=== PATIENT | male | born 1940 | race American Indian/Alaskan Native ===

== ENCOUNTER 2016-12-26 08:24 | Day surgery (SDC) | payer OTHER ==
[~2016-12-26 08:24] MED LIST: DIPRIVAN 10 MG/ML IV ONE; XYLOCAINE MPF 2% ONE
[2016-12-26] MEDS ORDERED: WATER FOR IRRIG STERILE ONE (09:52)
[2016-12-26] MEDS ORDERED: WATER FOR IRRIG STERILE IR ONE (09:52)
[2016-12-26] MEDS ORDERED: NACL 0.9% 1000 ML 1,000 ML IV SCH (10:00)
--- NOTE | 2016-12-26 10:07 | Anesthesia Consultation ---
Anesthesia Consult and Med Hx Date of service: 12/26/16 - Airway Anesthetic Teeth Evaluation: Edentulous ROM Head & Neck: Adequate Mental/Hyoid Distance: Adequate Mallampati Class: Class III Intubation Access Assessment: Possibly Difficult - Pre-Operative Health Status ASA Pre-Surgery Classification: ASA3 Proposed Anesthetic Plan: MAC - Pulmonary Hx Smoking: Yes (quit 30 years ago) COPD: Yes - Cardiovascular System Hx Hypertension: Yes Hx Coronary Artery Disease: Yes (MIx2, last 2009. No chest pain) Hx Heart Attack/AMI: Yes (cardiac stents x3, ) - Endocrine Hx Renal Disease: Yes - Hematic Hx Anemia: Yes
--- NOTE | 2016-12-26 10:08 | Anesthesia Day of Surgery ---
Anesthesia Day of Surgery - Day of Surgery Patient Examined: Yes Patient H&P Reviewed: Yes Patient is NPO: Yes Beta Blockers: Yes
--- NOTE | 2016-12-26 10:40 | Short Stay Summary ---
Short Stay Documentation Date of service: 12/26/16 Narrative H&P: The patient presents for surveillance colonoscopy. Last study was 3 years ago at the [facility] where more than 2 adenomas were found. - History Past Medical History: anemia, arthritis, CAD, COPD, ESRD, other (CFH) Past Surgical History: Other (AV fistula left arm) Social history: lives with family, no smoking, no alcohol abuse - Allergies and Medications Current Medications: Allergies atorvastatin calcium [From Lipitor] Allergy (Mild, Verified 12/26/16 10:19) Unknown ACHES ciprofloxacin [From Cipro] Allergy (Mild, Verified 12/26/16 10:19) Bleeding NOSE BLEED ciprofloxacin HCl [From Cipro] Allergy (Mild, Verified 12/26/16 10:19) Bleeding NOSE BLEED simvastatin Allergy (Mild, Verified 12/26/16 10:19) Unknown ACHES Home Medications Medication Instructions Recorded Confirmed Last Taken Type Allopurinol [Zyloprim] 100 mg PO QDAY 06/25/16 12/26/16 12/25/16 History Aspirin [Aspirin TAB] 325 mg PO QDAY 06/25/16 12/26/16 12/25/16 History Capsaicin [Capzasin-Hp] 1 applicatio TP TID 06/25/16 12/26/16 06/24/16 History Cholecalciferol Vit D3 [Vitamin D3] 1,000 unit PO QDAY 06/25/16 12/26/16 History Ferrous Sulfate [Feosol 325 MG tab] 325 mg PO BID 06/25/16 12/26/16 12/25/16 History Fosinopril Sodium 40 mg PO QDAY 06/25/16 12/26/16 12/25/16 History Metoprolol [Lopressor TAB] 75 mg PO BID 06/25/16 12/26/16 12/26/16 History Rosuvastatin Calcium 20 mg PO QDAY 06/25/16 12/26/16 12/25/16 History Terazosin HCl 10 mg PO QHS 06/25/16 12/26/16 12/25/16 History Albuterol Sulfate [Proair 90 mcg IH QID PRN #1 aer.pow.ba 06/27/16 12/26/16 Rx Respiclick] Ferrous Sulfate [Feosol 325 MG tab] 325 mg PO BID #60 tablet 06/27/16 12/26/16 12/25/16 Rx Furosemide [Lasix TAB] 40 mg PO BID #60 tablet 06/27/16 12/26/16 12/25/16 Rx Ipratropium/Albuterol Sulfate 1 ampul IH QIDRT #120 ampul.neb 06/27/16 12/26/16 12/25/16 Rx [Duoneb 0.5 mg-3 mg/3 ml Soln] Levofloxacin [Levaquin TAB] 750 mg PO Q48HR #3 tablet 06/27/16 12/26/16 Unknown Rx NIFEdipine XL [Procardia Xl] 30 mg PO QDAY #30 tablet 06/27/16 12/26/16 Rx Prednisone [predniSONE 5 mg (6-Day 5 mg PO .TAPER #1 tab.ds.pk 06/27/16 Unknown Rx Pack, 21 Tabs)] Tiotropium [Spiriva] 18 mcg IH QDAY #30 cap 06/27/16 12/26/16 12/25/16 Rx hydrALAZINE [Apresoline TAB] 25 mg PO Q8HR #90 tablet 06/27/16 12/26/16 Unknown Rx Darbepoetin Eric in Polysorbat 660 mcg IM Q2W 12/26/16 12/26/16 12/24/16 History Active Medications Sodium Chloride (Nacl 0.9% 1000 Ml) 1,000 mls @ 50 mls/hr IV DIRECT DARNELL Last Admin: 12/26/16 10:02 Dose: 50 mls/hr - Physical exam General appearance: no acute distress, well-nourished Integumentary: no rash, no growths, no abnormal pigmentation HEENT: Atraumatic, PERRLA, EOMI, Mucous membr. moist/pink Lungs: Clear to auscultation, Normal air movement Breasts: deferred Gastrointestinal: normoactive bowel sounds, no tenderness, no distended, no masses, no guarding, no organomegaly Male Genitourinary: deferred Rectal Exam: normal exam-external/orifice, normal rectal tone, no mass Extremities: no ischemia, pulses intact, pulses symmetrical, No edema, Full ROM , abnormal (left wrist AV fistula) Neurological: Normal gait, Normal speech, Strength at 5/5 X4 ext, Normal tone, Sensation intact, Cranial nerves 3-12 NL - Brief post op/procedure progress note Date of procedure: 12/26/16 Findings: see dictated report Estimated blood loss: none Pathology: list (descending colon polyp) Specimen disposition: to lab Condition: stable - Disposition Condition at discharge: Good Disposition: DISCHARGED TO HOME OR SELFCARE - Discharge Diagnoses (1) History of colon polyps Status: Acute Short Stay Discharge Plan Activity: other (no driving for 24 hours, No NSAIDS for 7 days) Weight Bearing Status: Full Weight Bearing Diet: low protein Special Instructions: other
--- NOTE | 2016-12-26 10:43 | Operative Report ---
Operative Report Operative Report: Date of procedure: 12/26/2016 Preprocedure diagnosis: History of colon polyps, multiple adenomas. Post procedure diagnosis: 1 cm polyp in the proximal descending colon. Mild left colon diverticulosis. Procedure: Colonoscopy to the cecum with snare polypectomy with cautery. Endoscopist: Dr. Cordova Anesthesia: Monitored anesthesia care per anesthesia department Estimated blood loss: 0 Medications: Monitored anesthesia care. See separate report by anesthesia for details. After careful discussion of the nature and purpose of the procedure as well as details of the technique risks benefits and alternatives the patient gave consent. Please see recent history and physical from the office. The patient was placed in the left lateral decubitus position and medicated per anesthesia. A rectal exam was performed sphincter tone was normal there were no masses palpable. The [employer] 570 scope was passed transanally and advanced under continuous direct vision without difficulty to the cecum. The colon was well prepared. The cecum was normal. The ascending colon was normal and on forward and retroflexed views. The transverse colon was normal. The descending colon revealed a 1 cm semi-pedunculated polyp in the proximal portion. The polyp was removed with snare electrocautery without difficulty and retrieved by suction. There were a few scattered diverticula throughout the descending colon and sigmoid colon. The rectum was normal on forward and retroflexed views. The procedure was well-tolerated overall and the patient was observed in recovery. Conclusions: 1 cm descending colon polyp. Mild left colon diverticulosis. Plan: The patient will call the office in 10 days to discuss the pathology. Repeat colonoscopy in 5 years. Signed electronically: Amanuel Cordova M.D.
[2016-12-26 11:15] VITALS: BP 190/84
--- NOTE | 2016-12-26 14:06 | Post Anesthesia Evaluation ---
- Post Anesthesia Evaluation Patient Participated: Yes Airway Patent: Yes Stable Respiratory Function: Yes Nausea/Vomiting: No Temp > 96.8F: Yes Pain Manageable: Yes Adequeate Hydration: Yes Anesthesia Complications: No Block Receding Appropriately: Not Applicable Patient on Ventilator: No
== END 2016-12-26 08:25 | disposition home or self-care (01) ==
LOC: GIO 08:24
PROVIDERS: ATTEND Internal Medicine Gastroenterology
DX: D12.4 Benign neoplasm of descending colon (principal); K57.30 Diverticulosis of large intestine without perforation or abscess without bleeding; D64.9 Anemia, unspecified; M19.90 Unspecified osteoarthritis, unspecified site; I25.10 Atherosclerotic heart disease of native coronary artery without angina pectoris; I13.2 Hypertensive heart and chronic kidney disease with heart failure and with stage 5 chronic kidney disease, or end stage renal disease; N18.6 End stage renal disease; I50.9 Heart failure, unspecified; I25.2 Old myocardial infarction; J44.9 Chronic obstructive pulmonary disease, unspecified; Z98.890 Other specified postprocedural states; Z79.899 Other long term (current) drug therapy; Z87.891 Personal history of nicotine dependence; Z95.5 Presence of coronary angioplasty implant and graft
CPT/HCPCS: 45385; 88305; J2704; J7030

== ENCOUNTER 2017-11-20 13:08 | Emergency (ER) | payer SELFPAY ==
[2017-11-20] MEDS ORDERED: NACL 0.9% 500 ML 500 ML IV ONE (14:54)
[2017-11-20 16:44] VITALS: BP 116/68
--- NOTE | 2017-11-20 16:55 | Emergency Department Report ---
ED Syncope HPI - General Chief Complaint: Syncope Stated Complaint: SYNCOPAL EPISODE Time Seen by Provider: 11/20/17 14:48 Source: patient - History of Present Illness Initial Comments: Patient is a 77-year-old male with a history of end-stage renal disease on dialysis who is presenting to the emergency department today after a near syncopal episode. Patient became very dizzy and felt as though things were going black and had to be sat down after his dialysis session. Patient blood pressure was 80 systolic. Patient's states he did take his blood pressure medicines today and this has happened before on occasion. Patient currently has no symptoms. Patient does not feel dizzy there is no headache shortness of breath nausea vomiting he is moving all extremities fine. Timing/Prior Episodes: single episode today, recent history - Related Data Allergies/Adverse Reactions: Allergies atorvastatin calcium [From Lipitor] Allergy (Mild, Verified 11/20/17 13:39) Unknown ACHES ciprofloxacin [From Cipro] Allergy (Mild, Verified 11/20/17 13:39) Bleeding NOSE BLEED ciprofloxacin HCl [From Cipro] Allergy (Mild, Verified 11/20/17 13:39) Bleeding NOSE BLEED simvastatin Allergy (Mild, Verified 11/20/17 13:39) Unknown ACHES Home Medications: Ambulatory Orders Allopurinol [Zyloprim] 100 mg PO QDAY 06/25/16 Aspirin [Aspirin TAB] 325 mg PO QDAY 06/25/16 Capsaicin [Capzasin-Hp] 1 applicatio TP TID 06/25/16 Cholecalciferol Vit D3 [Vitamin D3] 1,000 unit PO QDAY 06/25/16 Ferrous Sulfate [Feosol 325 MG tab] 325 mg PO BID 06/25/16 Fosinopril Sodium 40 mg PO QDAY 06/25/16 Metoprolol [Lopressor TAB] 75 mg PO BID 06/25/16 Rosuvastatin Calcium 20 mg PO QDAY 06/25/16 Terazosin HCl 10 mg PO QHS 06/25/16 Albuterol Sulfate [Proair Respiclick] 90 mcg IH QID PRN #1 aer.pow.ba 06/27/16 Ferrous Sulfate [Feosol 325 MG tab] 325 mg PO BID #60 tablet 06/27/16 Furosemide [Lasix TAB] 40 mg PO BID #60 tablet 06/27/16 Ipratropium/Albuterol Sulfate [DUONEB *Not for PRN Use*] 1 ampul IH QIDRT #120 ampul.neb 06/27/16 Levofloxacin [Levaquin TAB] 750 mg PO Q48HR #3 tablet 06/27/16 NIFEdipine XL [Procardia Xl] 30 mg PO QDAY #30 tablet 06/27/16 Prednisone [predniSONE 5 mg (6-Day Pack, 21 Tabs)] 5 mg PO .TAPER #1 tab.ds.pk 06/27/16 Tiotropium [Spiriva] 18 mcg IH QDAY #30 cap 06/27/16 hydrALAZINE [Apresoline TAB] 25 mg PO Q8HR #90 tablet 06/27/16 Darbepoetin Eric in Polysorbat 660 mcg IM Q2W 12/26/16 ED Review of Systems ROS: Stated complaint: SYNCOPAL EPISODE Other details as noted in HPI Comment: All other systems reviewed and negative ED Past Medical Hx - Past Medical History Previous Medical History?: Yes Hx Hypertension: Yes Hx Heart Attack/AMI: Yes (cardiac stents x3, ) Hx Congestive Heart Failure: Yes Hx Renal Disease: Yes Hx Arthritis: Yes Hx COPD: Yes - Surgical History Past Surgical History?: Yes Hx Coronary Stent: Yes (X3) - Social History Smoking Status: Never Smoker Substance Use Type: Alcohol - Medications Home Medications: Home Medications Medication Instructions Recorded Confirmed Last Taken Type Allopurinol [Zyloprim] 100 mg PO QDAY 06/25/16 12/26/16 12/25/16 History Aspirin [Aspirin TAB] 325 mg PO QDAY 06/25/16 12/26/16 12/25/16 History Capsaicin [Capzasin-Hp] 1 applicatio TP TID 06/25/16 12/26/16 06/24/16 History Cholecalciferol Vit D3 [Vitamin D3] 1,000 unit PO QDAY 06/25/16 12/26/16 History Ferrous Sulfate [Feosol 325 MG tab] 325 mg PO BID 06/25/16 12/26/16 12/25/16 History Fosinopril Sodium 40 mg PO QDAY 06/25/16 12/26/16 12/25/16 History Metoprolol [Lopressor TAB] 75 mg PO BID 06/25/16 12/26/16 12/26/16 History Rosuvastatin Calcium 20 mg PO QDAY 06/25/16 12/26/16 12/25/16 History Terazosin HCl 10 mg PO QHS 06/25/16 12/26/16 12/25/16 History Albuterol Sulfate [Proair 90 mcg IH QID PRN #1 aer.pow.ba 06/27/16 12/26/16 Rx Respiclick] Ferrous Sulfate [Feosol 325 MG tab] 325 mg PO BID #60 tablet 06/27/16 12/26/16 12/25/16 Rx Furosemide [Lasix TAB] 40 mg PO BID #60 tablet 06/27/16 12/26/16 12/25/16 Rx Ipratropium/Albuterol Sulfate 1 ampul IH QIDRT #120 ampul.neb 06/27/16 12/26/16 12/25/16 Rx [DUONEB *Not for PRN Use*] Levofloxacin [Levaquin TAB] 750 mg PO Q48HR #3 tablet 06/27/16 12/26/16 Unknown Rx NIFEdipine XL [Procardia Xl] 30 mg PO QDAY #30 tablet 06/27/16 12/26/16 Rx Prednisone [predniSONE 5 mg (6-Day 5 mg PO .TAPER #1 tab.ds.pk 06/27/16 Unknown Rx Pack, 21 Tabs)] Tiotropium [Spiriva] 18 mcg IH QDAY #30 cap 06/27/16 12/26/16 12/25/16 Rx hydrALAZINE [Apresoline TAB] 25 mg PO Q8HR #90 tablet 06/27/16 12/26/16 Unknown Rx Darbepoetin Eric in Polysorbat 660 mcg IM Q2W 12/26/16 12/26/16 12/24/16 History ED Physical Exam - General Limitations: No Limitations General appearance: alert, in no apparent distress - Head Head exam: Present: atraumatic, normocephalic - Eye Eye exam: Present: normal appearance - ENT ENT exam: Present: mucous membranes moist - Neck Neck exam: Present: normal inspection - Respiratory Respiratory exam: Present: normal lung sounds bilaterally. Absent: respiratory distress - Cardiovascular Cardiovascular Exam: Present: regular rate, normal rhythm. Absent: systolic murmur, diastolic murmur, rubs, gallop - GI/Abdominal GI/Abdominal exam: Present: soft, normal bowel sounds. Absent: distended, tenderness, guarding, rebound - Rectal Rectal exam: Present: deferred - Extremities Exam Extremities exam: Present: normal inspection - Back Exam Back exam: Present: normal inspection - Neurological Exam Neurological exam: Present: alert, oriented X3 - Psychiatric Psychiatric exam: Present: normal affect, normal mood - Skin Skin exam: Present: warm, dry, intact, normal color. Absent: rash ED Course Vital Signs 11/20/17 11/20/17 11/20/17 13:50 15:53 16:00 Temperature 97.5 F L Pulse Rate 69 76 Respiratory 14 18 Rate Blood Pressure 137/80 Blood Pressure 125/75 [Left] O2 Sat by Pulse 99 97 Oximetry 11/20/17 11/20/17 11/20/17 16:29 16:32 16:44 Temperature Pulse Rate 75 86 Respiratory 18 Rate Blood Pressure 127/72 116/68 Blood Pressure [Left] O2 Sat by Pulse 98 94 99 Oximetry ED Medical Decision Making - Medical Decision Making Patient was hydrated with a small amount of IV fluids and will be discharged home. Patient's blood pressure has responded well and he is no longer symptomatic or hypotensive Critical care attestation.: If time is entered above; I have spent that time in minutes in the direct care of this critically ill patient, excluding procedure time. ED Disposition Clinical Impression: Hypotension Qualifiers: Hypotension type: hemodialysis-associated hypotension Qualified Code(s): I95.3 - Hypotension of hemodialysis Disposition: DC-01 TO HOME OR SELFCARE Is pt being admited?: No Does the pt Need Aspirin: No Condition: Stable Referrals: NOHEMI RBOWN MD [Primary Care Provider] - 3-5 Days
== END 2017-11-20 17:10 | disposition home or self-care (01) ==
LOC: ED 13:08
DX: I95.9 Hypotension, unspecified (principal); I25.2 Old myocardial infarction; I11.0 Hypertensive heart disease with heart failure; I50.9 Heart failure, unspecified; M19.90 Unspecified osteoarthritis, unspecified site; Z95.1 Presence of aortocoronary bypass graft; Z79.82 Long term (current) use of aspirin; Z88.1 Allergy status to other antibiotic agents; Z88.8 Allergy status to other drugs, medicaments and biological substances
CPT/HCPCS: 93005; 93010; 99283

== ENCOUNTER 2019-04-10 16:37 | Inpatient (IN) | payer MEDICARE ==
[2019-04-10] MEDS ORDERED: NACL 0.9% 1000 ML 1,000 ML IV ONE (17:23)
--- NOTE | 2019-04-10 17:24 | Emergency Department Report ---
ED General Adult HPI - General Chief complaint: Dizziness Stated complaint: HYPOTENSION Time Seen by Provider: 04/10/19 17:22 Source: patient, EMS Mode of arrival: Stretcher Limitations: No Limitations - History of Present Illness Initial comments: Patient is a 78-year-old male that presents emergency room with complaints of weakness, low blood pressure and dizziness and near syncopal episode. Patient states he had dialysis today and only had a half of a normal dialysis due to blood pressure. Patient then went home after dialysis and continue to monitor his blood pressure and it was fluctuating but staying low.. Patient states he is feeling weak and near syncopal. Patient states he never loss consciousness or passed out. Patient is brought in by EMS. Patient denies chest pain. Patient denies shortness of breath. Patient has fever and chills. -: Sudden Consistency: constant Improves with: rest Worsens with: movement Associated Symptoms: malaise, weakness. denies: confusion, chest pain, cough, diaphoresis, fever/chills, headaches, loss of appetite, nausea/vomiting, rash, seizure, shortness of breath Treatments Prior to Arrival: none - Related Data Home Medications Medication Instructions Recorded Confirmed Last Taken Albuterol Sulfate [Proair 90 mcg IH QID PRN 08/28/18 04/10/19 08/26/18 Respiclick] Aspirin [Aspirin BABY CHEW TAB] 81 mg PO QDAY 08/28/18 04/10/19 08/26/18 Lanthanum Carbonate [Fosrenol] 2,000 mg PO TID 08/28/18 04/10/19 08/26/18 NIFEdipine [Adalat cc] 60 mg PO BID 08/28/18 04/10/19 08/26/18 Rosuvastatin Calcium [Crestor] 5 mg PO DAILY 08/28/18 04/10/19 08/26/18 Sodium Bicarbonate 650 mg PO BID 08/28/18 04/10/19 08/26/18 Terazosin HCl 10 mg PO HS 08/28/18 04/10/19 08/26/18 Tiotropium [Spiriva] 2 puff DAILY 08/28/18 04/10/19 08/26/18 Amiodarone HCl [Amiodarone 100 MG 100 mg PO DAILY 04/10/19 04/10/19 Unknown TAB] Apixaban [Eliquis] 5 mg PO Q12H 04/10/19 04/10/19 Unknown Metoprolol Xl [Metoprolol 50 mg PO DAILY 04/10/19 04/10/19 Unknown SUCCINATE ER TAB] Allergies Allergy/AdvReac Type Severity Reaction Status Date / Time atorvastatin calcium Allergy Mild Unknown Verified 11/20/17 13:39 [From Lipitor] ciprofloxacin [From Cipro] Allergy Mild Bleeding Verified 11/20/17 13:39 ciprofloxacin HCl Allergy Mild Bleeding Verified 11/20/17 13:39 [From Cipro] simvastatin Allergy Mild Unknown Verified 11/20/17 13:39 ED Review of Systems ROS: Stated complaint: HYPOTENSION Other details as noted in HPI Constitutional: denies: chills, fever Eyes: denies: eye pain, eye discharge, vision change ENT: denies: ear pain, throat pain Respiratory: denies: cough, shortness of breath, wheezing Cardiovascular: denies: chest pain, palpitations Endocrine: no symptoms reported Gastrointestinal: denies: abdominal pain, nausea, diarrhea Genitourinary: denies: urgency, dysuria Musculoskeletal: denies: back pain, joint swelling, arthralgia Skin: denies: rash, lesions Neurological: weakness. denies: headache, paresthesias Psychiatric: denies: anxiety, depression Hematological/Lymphatic: denies: easy bleeding, easy bruising ED Past Medical Hx - Past Medical History Previous Medical History?: Yes Hx Hypertension: Yes Hx Heart Attack/AMI: Yes (cardiac stents x3, ) Hx Congestive Heart Failure: Yes Hx Renal Disease: Yes Hx Arthritis: Yes Hx COPD: Yes - Surgical History Past Surgical History?: Yes Hx Coronary Stent: Yes (X3) - Family History Family history: no significant - Social History Smoking Status: Never Smoker Substance Use Type: None - Medications Home Medications: Home Medications Medication Instructions Recorded Confirmed Last Taken Type Albuterol Sulfate [Proair 90 mcg IH QID PRN 08/28/18 04/10/19 08/26/18 History Respiclick] Aspirin [Aspirin BABY CHEW TAB] 81 mg PO QDAY 08/28/18 04/10/19 08/26/18 History Lanthanum Carbonate [Fosrenol] 2,000 mg PO TID 08/28/18 04/10/19 08/26/18 History NIFEdipine [Adalat cc] 60 mg PO BID 08/28/18 04/10/19 08/26/18 History Rosuvastatin Calcium [Crestor] 5 mg PO DAILY 08/28/18 04/10/19 08/26/18 History Sodium Bicarbonate 650 mg PO BID 08/28/18 04/10/19 08/26/18 History Terazosin HCl 10 mg PO HS 08/28/18 04/10/19 08/26/18 History Tiotropium [Spiriva] 2 puff DAILY 08/28/18 04/10/19 08/26/18 History Amiodarone HCl [Amiodarone 100 MG 100 mg PO DAILY 04/10/19 04/10/19 Unknown History TAB] Apixaban [Eliquis] 5 mg PO Q12H 04/10/19 04/10/19 Unknown History Metoprolol Xl [Metoprolol 50 mg PO DAILY 04/10/19 04/10/19 Unknown History SUCCINATE ER TAB] ED Physical Exam - General Limitations: No Limitations General appearance: alert, in no apparent distress - Head Head exam: Present: atraumatic, normocephalic - Eye Eye exam: Present: normal appearance, PERRL Pupils: Present: normal accommodation, other (scleral pallor noted) - ENT ENT exam: Present: mucous membranes moist - Neck Neck exam: Present: normal inspection - Respiratory Respiratory exam: Present: normal lung sounds bilaterally. Absent: respiratory distress, wheezes, rales - Cardiovascular Cardiovascular Exam: Present: regular rate, normal rhythm. Absent: systolic murmur, diastolic murmur, rubs, gallop - GI/Abdominal GI/Abdominal exam: Present: soft, normal bowel sounds - Rectal Rectal exam: Present: deferred - Extremities Exam Extremities exam: Present: normal inspection - Back Exam Back exam: Present: normal inspection - Neurological Exam Neurological exam: Present: alert, oriented X3 - Psychiatric Psychiatric exam: Present: normal affect, normal mood - Skin Skin exam: Present: warm, dry, intact, normal color. Absent: rash ED Course Vital Signs 04/10/19 04/10/19 04/10/19 17:03 17:10 17:15 Temperature 97.8 F Pulse Rate 93 H 91 H Respiratory 18 15 Rate Blood Pressure 87/43 79/42 79/42 O2 Sat by Pulse 98 96 Oximetry 04/10/19 04/10/19 04/10/19 17:30 17:45 18:00 Temperature Pulse Rate 86 86 88 Respiratory 12 16 21 Rate Blood Pressure 79/42 94/48 94/48 O2 Sat by Pulse 97 97 Oximetry 04/10/19 04/10/19 04/10/19 18:16 18:30 18:45 Temperature Pulse Rate 83 83 83 Respiratory 21 15 16 Rate Blood Pressure 79/42 100/40 96/34 O2 Sat by Pulse 99 98 96 Oximetry 04/10/19 04/10/19 04/10/19 19:00 19:15 19:20 Temperature Pulse Rate 84 86 Respiratory 14 14 20 Rate Blood Pressure 95/36 104/40 O2 Sat by Pulse 98 96 97 Oximetry 04/10/19 04/10/19 04/10/19 19:30 19:45 20:01 Temperature Pulse Rate 92 H 86 89 Respiratory 21 19 13 Rate Blood Pressure 99/41 106/50 110/54 O2 Sat by Pulse 97 97 Oximetry 04/10/19 04/10/19 04/10/19 20:07 20:15 20:22 Temperature 97.3 F L 98.2 F Pulse Rate 88 92 H 88 Respiratory 18 16 18 Rate Blood Pressure 101/49 88/45 88/45 O2 Sat by Pulse 98 92 97 Oximetry 04/10/19 04/10/19 04/10/19 20:30 20:45 20:52 Temperature 98.4 F Pulse Rate 91 H 94 H 95 H Respiratory 16 11 L 18 Rate Blood Pressure 105/56 125/53 108/50 O2 Sat by Pulse 95 98 97 Oximetry 04/10/19 04/10/19 04/10/19 21:00 21:15 21:22 Temperature 98.5 F Pulse Rate 88 89 88 Respiratory 14 15 18 Rate Blood Pressure 122/53 131/63 131/63 O2 Sat by Pulse 99 100 98 Oximetry 04/10/19 04/10/19 04/10/19 21:30 21:32 21:46 Temperature 98.3 F Pulse Rate 86 87 94 H Respiratory 20 18 21 Rate Blood Pressure 120/61 103/43 121/52 O2 Sat by Pulse 96 98 Oximetry 04/10/19 04/10/19 22:00 22:09 Temperature 98.3 F Pulse Rate 88 87 Respiratory 14 18 Rate Blood Pressure 103/43 103/43 O2 Sat by Pulse 95 97 Oximetry - Reevaluation(s) Reevaluation #1: Blood pressure has improved. Patient has received 300 mils of saline and blood pressure right now is 100/60. Discussed all results with patient. Patient will be admitted to the hospitalist service. Patient agrees to plan of care. Patient agrees to have transfusion. 04/10/19 19:04 - Consultations Consultation #1: Hospitalist consulted for admission. Hospitalist to admit patient. Hospitalist to assume care patient. 04/10/19 19:10 ED Medical Decision Making - Lab Data Result diagrams: 04/10/19 17:29 04/10/19 17:29 - EKG Data -: EKG Interpreted by Me EKG shows normal: sinus rhythm, axis, intervals, QRS complexes, ST-T waves Rate: normal - Radiology Data Radiology results: image reviewed - Medical Decision Making Patient is a 78-year-old mellitus emergency room with complaints of hypotension, near syncope and weakness. Patient found to have low blood pressure and severe anemia. Patient type and cross and will be transfused 2 units. The patient has a history of CAD and CHF and end-stage renal disease. Labs unremarkable was in for severe anemia and kidney findings consistent with end-stage renal disease. Potassium normal. Patient's chest x-ray unremarkable. Patient admitted to the hospitalist service. - Differential Diagnosis anemia. hypotension. Hydration. Hypovolemia. Critical Care Time: Yes Critical care attestation.: If time is entered above; I have spent that time in minutes in the direct care of this critically ill patient, excluding procedure time. Critical Care Time: 45 minutes ED Disposition Clinical Impression: Elevated troponin, ESRD on hemodialysis, Near syncope Anemia Qualifiers: Anemia type: unspecified type Qualified Code(s): D64.9 - Anemia, unspecified Hypotension Qualifiers: Hypotension type: unspecified hypotension type Qualified Code(s): I95.9 - Hypotension, unspecified CAD (coronary artery disease) Qualifiers: Coronary Disease-Associated Artery/Lesion type: unspecified vessel or lesion type [place] vs. transplanted heart: [place] heart Associated angina: angina presence unspecified Qualified Code(s): I25.10 - Atherosclerotic heart disease of [place] coronary artery without angina pectoris Disposition: OP ADMIT IP TO THIS HOSP Is pt being admited?: Yes Does the pt Need Aspirin: No Condition: Critical Time of Disposition: 18:59
[2019-04-10 17:47] LABS: Basophils # (Auto) 0.1 K/mm3 (0.0-0.1); Basophils % (Auto) 0.7 % (0.0-1.8); Eosinophils # (Auto) 0.1 K/mm3 (0.0-0.4); Eosinophils % (Auto) 1.1 % (0.0-4.3); Lymphocytes # (Auto) 0.7 K/mm3 (1.2-5.4); Lymphocytes % (Auto) 7.8 % (13.4-35.0); Mean Corpuscular HGB Conc 34 % (32-34); Mean Corpuscular Volume 83 fl (84-94); Monocytes # (Auto) 0.6 K/mm3 (0.0-0.8); Monocytes % (Auto) 7.2 % (0.0-7.3); Platelet Count 164 K/mm3 (140-440); Red Cell Distribution Width 18.3 % (13.2-15.2)
[2019-04-10 18:06] LABS: Alanine Aminotransferase 11 units/L (7-56); BUN/Creatinine Ratio 11; Blood Urea Nitrogen 65 mg/dL (9-20); Calcium 8.6 mg/dL (8.4-10.2); Hematocrit 16.6 % (35.5-45.6); Hemoglobin 5.6 gm/dl (11.8-15.2); Hemolysis Index 2
[2019-04-10] MEDS ORDERED: NACL 0.9% 500 ML 500 ML IV ONE (18:57)
[2019-04-10 19:01] LABS: Chol/HDL Ratio 4.65 %; HDL Cholesterol 29 mg/dL (40-59); LDL Cholesterol,Direct 64 mg/dL (50-130)
--- NOTE | 2019-04-10 19:19 | XRay Report ---
PROCEDURE: XR CHEST 1V AP TECHNIQUE: Chest radiograph single view. HISTORY: Lightheadedness/Dizziness COMPARISONS: CXR 08/27/2018 . FINDINGS: Heart: Normal. Mediastinum/Vessels: Calcification of aorta is again noted. Lungs/Pleural space: Chronic markings in the right lung base are stable, probably fibrotic.. Bony thorax: No acute osseous abnormality. Life support devices: None. IMPRESSION: No acute cardiopulmonary abnormality. Probable fibrosis in the right base This document is electronically signed by Celeste Mesa MD., April 10 2019 07:17:42 PM ET
[2019-04-10] MEDS ORDERED: PROVENTIL IH PRN (20:29)
[2019-04-10] MEDS ORDERED: MORPHINE IV PRN (20:29)
[2019-04-10] MEDS ORDERED: SODIUM CHLORIDE FLUSH SYRINGE 10 ML IV PRN (20:29)
[2019-04-10] MEDS: PULMICORT IH SCH (20:30)
[2019-04-10 21:30] LABS: INR 1.38 (0.87-1.13)
[2019-04-10 21:35] LABS: Iron 62 ug/dL (49-181); Total Iron Binding Capacity 176 mcg/dL (250-450)
[2019-04-10 21:36] LABS: % Iron Saturation 37.5 %
[2019-04-10] MEDS ORDERED: COUMADIN PO SCH (22:00)
[2019-04-10] MEDS: SODIUM CHLORIDE FLUSH SYRINGE 10 ML IV SCH (22:10)
--- NOTE | 2019-04-10 22:19 | History and Physical Report ---
History of Present Illness Date of examination: 04/10/19 Date of admission: 04/10/19 20:29 Chief complaint: Hypotension History of present illness: 78-year-old -[place] male with history of COPD, coronary artery disease status post stent 3, HLD, ESRD on HD M/W/F, HTN who presents to [facility] ED via EMS with complaints of hypotension and generalized weakness. Patient states that he was not able to complete full course of hemo dialysis today d/t hypotension. After dialysis he went home and took "some medicine" and went back out to run a few errands. While out running errands he became dizzy and had a near syncopal event. Patient states that he never lost consciousness. EMS was called and he was transported to facility for further evaluation. Of note patient states that he was recently in [place] vacationing and became afebrile. He was treated for pneumonia bacteremia and COPD exacerbation. He was discharged with oral antibiotics. He states that he has completed full course of antibiotics. Denies loss of consciousness, chest pain, fever, cough, sputum production, hemoptysis, dyspnea, or headache Past History Past Medical History: acute [place] (cardiac stents x3), arthritis, CAD, COPD, heart failure, hypertension, renal failure (on HD M/W/F) Past Surgical History: Other (s/p stents x3) Social history: other (former smoker quit 30 years ago) Family history: no significant family history Medications and Allergies Allergies Allergy/AdvReac Type Severity Reaction Status Date / Time atorvastatin calcium Allergy Mild Unknown Verified 11/20/17 13:39 [From Lipitor] ciprofloxacin [From Cipro] Allergy Mild Bleeding Verified 11/20/17 13:39 ciprofloxacin HCl Allergy Mild Bleeding Verified 11/20/17 13:39 [From Cipro] simvastatin Allergy Mild Unknown Verified 11/20/17 13:39 Home Medications Medication Instructions Recorded Confirmed Last Taken Type Albuterol Sulfate [Proair 90 mcg IH QID PRN 08/28/18 04/10/19 08/26/18 History Respiclick] Aspirin [Aspirin BABY CHEW TAB] 81 mg PO QDAY 08/28/18 04/10/19 08/26/18 History Lanthanum Carbonate [Fosrenol] 2,000 mg PO TID 08/28/18 04/10/19 08/26/18 History NIFEdipine [Adalat cc] 60 mg PO BID 08/28/18 04/10/19 08/26/18 History Rosuvastatin Calcium [Crestor] 5 mg PO DAILY 08/28/18 04/10/19 08/26/18 History Sodium Bicarbonate 650 mg PO BID 08/28/18 04/10/19 08/26/18 History Terazosin HCl 10 mg PO HS 08/28/18 04/10/19 08/26/18 History Tiotropium [Spiriva] 2 puff DAILY 08/28/18 04/10/19 08/26/18 History Amiodarone HCl [Amiodarone 100 MG 100 mg PO DAILY 04/10/19 04/10/19 Unknown History TAB] Apixaban [Eliquis] 5 mg PO Q12H 04/10/19 04/10/19 Unknown History Metoprolol Xl [Metoprolol 50 mg PO DAILY 04/10/19 04/10/19 Unknown History SUCCINATE ER TAB] Active Meds: Active Medications Acetaminophen (Tylenol) 650 mg PO Q4H PRN PRN Reason: Pain MILD(1-3)/Fever >100.5/STOLL Albuterol (Proventil) 2.5 mg IH Q3HRT PRN PRN Reason: Shortness Of Breath Allopurinol (Zyloprim) 100 mg PO QDAY DARNELL Aspirin (Baby Aspirin) 81 mg PO QDAY DARNELL Budesonide (Pulmicort) 0.5 mg IH Q12HRT [facility] Docusate Sodium (Colace) 100 mg PO BID [facility] Ferrous Sulfate (Feosol) 325 mg PO TID [facility] Heparin Sodium (Porcine) (Heparin) 5,000 unit SUB-Q Q12HR [facility] Miscellaneous Medication (Rosuvastatin Calcium [Crestor]) 5 mg PO DAILY [facility] Miscellaneous Medication (Lanthanum Carbonate [Fosrenol]) 2,000 mg PO TID [facility] Morphine Sulfate (Morphine) 2 mg IV Q4H PRN PRN Reason: Pain, Moderate (4-6) Stop: 04/11/19 23:59 Ondansetron HCl (Zofran) 4 mg IV Q8H PRN PRN Reason: Nausea And Vomiting Sodium Chloride (Sodium Chloride Flush Syringe 10 Ml) 10 ml IV BID [facility] Sodium Chloride (Sodium Chloride Flush Syringe 10 Ml) 10 ml IV PRN PRN PRN Reason: LINE FLUSH Warfarin Sodium (Coumadin) 5 mg PO QHS DARNELL; Protocol Review of Systems All systems: negative (reviewed and no additional remarkable complaints except as below) Constitutional: fatigue, weakness Exam - Physical Exam Narrative exam: Physical exam General appearance: Present: No acute distress, alert and oriented 3, older adult male - EENT Eyes: Present: PERRL, EOM intact ENT: hearing intact, normal dentition - Neck Neck: Present: supple, normal ROM - Respiratory Respiratory effort: Non-labored Respiratory: bilateral: diminished (bases) - Cardiovascular Heart rate: 82 (bpm) Rhythm: Sinus rhythm Heart Sounds: Present: S1 & S2. Absent: rub, click - Extremities Extremities: no ischemia, pulses intact, abnormal (left upper arm fistula) - Peripheral Assessment Peripheral Pulses: within normal limits - Abdominal General gastrointestinal: soft, non-tender, normal bowel sounds - Integumentary Integumentary: Present: warm, dry - Musculoskeletal Musculoskeletal: generalized weakness - Psychiatric Psychiatric: cooperative - Constitutional Vitals: Temp Pulse Resp BP Pulse Ox 98.3 F 87 18 103/43 98 04/10/19 21:32 04/10/19 21:32 04/10/19 21:32 04/10/19 21:32 04/10/19 21:32 Results - Labs CBC & Chem 7: 04/10/19 17:29 04/10/19 17:29 Labs: Laboratory Last Values WBC 8.5 K/mm3 (4.5-11.0) 04/10/19 17:29 RBC 2.00 M/mm3 (3.65-5.03) L 04/10/19 17:29 Hgb 5.6 gm/dl (11.8-15.2) L* 04/10/19 17:29 Hct 16.6 % (35.5-45.6) L* 04/10/19 17:29 MCV 83 fl (84-94) L 04/10/19 17:29 MCH 28 pg (28-32) 04/10/19 17:29 MCHC 34 % (32-34) 04/10/19 17:29 RDW 18.3 % (13.2-15.2) H 04/10/19 17:29 Plt Count 164 K/mm3 (140-440) 04/10/19 17:29 Lymph % (Auto) 7.8 % (13.4-35.0) L 04/10/19 17:29 [place] % (Auto) 7.2 % (0.0-7.3) 04/10/19 17:29 Eos % (Auto) 1.1 % (0.0-4.3) 04/10/19 17:29 Baso % (Auto) 0.7 % (0.0-1.8) 04/10/19 17:29 Lymph # 0.7 K/mm3 (1.2-5.4) L 04/10/19 17: [place] # 0.6 K/mm3 (0.0-0.8) 04/10/19 17:29 Eos # 0.1 K/mm3 (0.0-0.4) 04/10/19 17: Baso # 0.1 K/mm3 (0.0-0.1) 04/10/19 17: Seg Neutrophils % 83.2 % (40.0-70.0) H 04/10/19 17: Seg Neutrophils # 7.1 K/mm3 (1.8-7.7) 04/10/19 17:29 PT 17.9 Sec. (12.2-14.9) H 04/10/19 21:02 INR 1.38 (0.87-1.13) H 04/10/19 21:02 Sodium 137 mmol/L (137-145) 04/10/19 17:29 Potassium 4.5 mmol/L (3.6-5.0) 04/10/19 17: Chloride 100.4 mmol/L (98-107) 04/10/19 17:29 Carbon Dioxide 24 mmol/L (22-30) 04/10/19 17:29 17 mmol/L 04/10/19 17:29 BUN 65 mg/dL (9-20) H 04/10/19 17:29 5.9 mg/dL (0.8-1.5) H 04/10/19 17:29 Estimated GFR 11 ml/min 04/10/19 17:29 11 % 04/10/19 17:29 Glucose 111 mg/dL (75-100) H 04/10/19 17:29 Lactic Acid 1.50 mmol/L (0.7-2.0) 04/10/19 17: Calcium 8.6 mg/dL (8.4-10.2) 04/10/19 17:29 Iron 62 ug/dL (49-181) 04/10/19 20:43 Iron 63 ug/dL (49-181) 04/10/19 20:43 TIBC 168 mcg/dL (250-450) L 04/10/19 20:43 TIBC 176 mcg/dL (250-450) L 04/10/19 20:43 % Saturation 37.50 % 04/10/19 20:43 154 mg/dl (180-329) L 04/10/19 20:43 < 0.20 mg/dL (0.1-1.2) 04/10/19 17:29 AST 11 units/L (5-40) 04/10/19 17:29 ALT 11 units/L (7-56) 04/10/19 17:29 33 units/L (35-129) L 04/10/19 17:29 0.068 ng/mL (0.00-0.029) H 04/10/19 17:29 5.6 g/dL (6.3-8.2) L 04/10/19 17:29 3.0 g/dL (3.9-5) L 04/10/19 17:29 1.2 % 04/10/19 17:29 Triglycerides 307 mg/dL (2-149) H 04/10/19 17:29 Cholesterol 135 mg/dL (50-199) 04/10/19 17:29 64 mg/dL (50-130) 04/10/19 17:29 29 mg/dL (40-59) L 04/10/19 17:29 4.65 % 04/10/19 17:29 Vitamin B12 298.4 pg/mL (211-911) 04/10/19 20:43 Blood Type A POSITIVE 04/10/19 18:12 Antibody Screen Negative 04/10/19 18:12 Crossmatch See Detail 04/10/19 18:12 - Imaging and Cardiology EKG: image reviewed (sinus rhythm 82 bpm) Chest x-ray: report reviewed ( No acute cardiopulmonary abnormality. Probable fibrosis in the right base ), image reviewed Assessment and Plan Assessment and plan: 78-year-old -[place] male with history of COPD, coronary artery disease status post stent 3, HLD, ESRD on HD M/W/F, HTN who presents to [facility] ED via EMS with complaints of hypotension and generalized weakness. Patient was found to be profoundly anemic with hemoglobin of 5.6. He was hypotensive with blood pressure of 87/43. He was given 1.5 L normal saline bolus and was responsive. Patient was agreeable for transfusion he was type and screen and 2 units PRBC was ordered. Will admit to Telemetry for further evaluation Acute on chronic anemia Hypotension ESRD on HD M/W/F Elevated troponin 1 0.068 Frailty HLD COPD CAD S/T stent 3 History of hypertension History of gout Plan: Continue supportive care Monitor Hgb; transfuse PRN Received 2u PRBC Iron 63 and Vit B12 WNL, TIBC 168 and transferrin 154 both decreased Consult hematology Resume home ferrous sulfate 325mg 3 times a day Nephrology consultation for HD management ASA 81mg, Pravastatin 40mg at bedtime Resume warfarin 5 mg daily at bedtime Scheduled Pulmicort; albuterol when necessary Repeat troponin pending Monitor BP Hold antihypertensive medication for now DVT PPX on heparin Advance Directives: No VTE prophylaxis?: Chemical Plan of care discussed with patient/family: Yes
[2019-04-10] MEDS ORDERED: NACL 0.9% 250ML 250 ML ONE (22:27)
[2019-04-11] MEDS: COLACE PO SCH ×3 (00:08→21:27)
[2019-04-11 05:38] LABS: Basophils # (Auto) 0.1 K/mm3 (0.0-0.1); Basophils % (Auto) 0.7 % (0.0-1.8); Eosinophils # (Auto) 0.1 K/mm3 (0.0-0.4); Eosinophils % (Auto) 1.8 % (0.0-4.3); Hemoglobin 6.6 gm/dl (11.8-15.2); Lymphocytes % (Auto) 13.3 % (13.4-35.0); Mean Corpuscular HGB Conc 34 % (32-34); Mean Corpuscular Volume 87 fl (84-94); Monocytes # (Auto) 0.8 K/mm3 (0.0-0.8); Monocytes % (Auto) 10.3 % (0.0-7.3); Platelet Count 124 K/mm3 (140-440); Red Blood Count 2.26 M/mm3 (3.65-5.03); Red Cell Distribution Width 19.2 % (13.2-15.2)
[2019-04-11 05:48] LABS: Hematocrit 19.7 % (35.5-45.6)
[2019-04-11 05:56] LABS: Calcium 8.1 mg/dL (8.4-10.2)
[2019-04-11] MEDS ORDERED: LANTHANUM CARBONATE 2000 MG PO SCH (08:00)
[2019-04-11] MEDS ORDERED: NACL 0.9% 500 ML 500 ML IV ONE (09:00)
[2019-04-11] MEDS: PULMICORT IH SCH ×2 (09:48→20:17)
[2019-04-11] MEDS ORDERED: ELIQUIS PO SCH (10:00)
[2019-04-11] MEDS ORDERED: BABY ASPIRIN PO SCH (10:00)
[2019-04-11] MEDS ORDERED: HEPARIN SUB-Q SCH (10:00)
[2019-04-11] MEDS ORDERED: ROSUVASTATIN CALCIUM 5 MG PO SCH (10:00)
[2019-04-11] MEDS ORDERED: NACL 0.9% 100 ML IV PRN (10:05)
[2019-04-11] MEDS: FEOSOL PO SCH ×3 (10:24→21:27)
[2019-04-11] MEDS: FOSRENOL PO SCH ×3 (10:24→17:24)
[2019-04-11] MEDS: ZYLOPRIM PO SCH (10:24)
[2019-04-11] MEDS: ZOFRAN IV PRN (10:25)
[2019-04-11] MEDS: SODIUM CHLORIDE FLUSH SYRINGE 10 ML IV SCH ×2 (10:25→21:27)
[2019-04-11 11:09] LABS: Hematocrit 20.3 % (35.5-45.6); Hemoglobin 6.9 gm/dl (11.8-15.2)
[2019-04-11] MEDS: TYLENOL PO PRN ×3 (11:37→21:29)
--- NOTE | 2019-04-11 11:37 | Progress Note ---
Assessment and Plan Assessment and plan: 78-year-old -[place] male with history of COPD, coronary artery disease status post stent 3, HLD, ESRD on HD M/W/F, HTN who presents to [facility] ED via EMS with complaints of hypotension and generalized weakness. Patient was found to be profoundly anemic with hemoglobin of 5.6. He was hypotensive with blood pressure of 87/43. He was given 1.5 L normal Acute on chronic anemia likely duerto GI bleed Acute GI bleed - For EGD on Mon Hypotension ESRD on HD M/W/F Frailty HLD COPD CAD s/p coronary stent 3 History of hypertension History of gout Plan: Continue supportive care Monitor Hgb; transfuse PRN Received 2 Units PRBC, but Hgb only 6.9. Will transfuse 2 Units PRBC more. Hematology consulted Resume home ferrous sulfate 325mg 3 times a day Nephrology consulted for HD management Hold Aspirin because of bleed Hold Eliquis because of GI bleed Consulted and discussed with Dr. Mccarthy - For EGD tomorrow Pravastatin 40mg at bedtime Scheduled Pulmicort; albuterol when necessary Monitor BP Hold antihypertensive medication for now History Interval history: Dizziness Near syncope Dark stools for 1 week Hospitalist Physical - Physical exam Narrative exam: Gen: Not in acute distress, lying in bed, obese HEENT: Normocephalic, atraumatic Neck: supple, no JVD Heart: S1 and S2 reg, no murmurs, rubs or gallop Lungs: Clear, no crackles, no wheeze Abd: soft, non tender, non distended, normal BS Ext: No edema, no clubbing, no cyanosis, Neuro: Awake,alert, oriented x 3, moves all ext, non focal Psych:Normal mood - Constitutional Vitals: Temp Pulse Resp BP Pulse Ox 98.7 F 77 18 121/67 99 04/11/19 08:55 04/11/19 09:40 04/11/19 09:40 04/11/19 08:55 04/11/19 11:13 Results - Labs CBC & Chem 7: 04/12/19 07:56 04/11/19 05:05 Labs: Laboratory Last Values WBC 7.5 K/mm3 (4.5-11.0) 04/11/19 05:05 RBC 2.26 M/mm3 (3.65-5.03) L 04/11/19 05:05 Hgb 6.9 gm/dl (11.8-15.2) L 04/11/19 10:43 Hct 20.3 % (35.5-45.6) L 04/11/19 10:43 MCV 87 fl (84-94) 04/11/19 05:05 MCH 29 pg (28-32) 04/11/19 05:05 MCHC 34 % (32-34) 04/11/19 05:05 RDW 19.2 % (13.2-15.2) H 04/11/19 05:05 Plt Count 124 K/mm3 (140-440) L 04/11/19 05:05 Lymph % (Auto) 13.3 % (13.4-35.0) L 04/11/19 05:05 [place] % (Auto) 10.3 % (0.0-7.3) H 04/11/19 05:05 Eos % (Auto) 1.8 % (0.0-4.3) 04/11/19 05:05 Baso % (Auto) 0.7 % (0.0-1.8) 04/11/19 05:05 Lymph # 1.0 K/mm3 (1.2-5.4) L 04/11/19 05:05 [place] # 0.8 K/mm3 (0.0-0.8) 04/11/19 05:05 Eos # 0.1 K/mm3 (0.0-0.4) 04/11/19 05:05 Baso # 0.1 K/mm3 (0.0-0.1) 04/11/19 05:05 Seg Neutrophils % 73.9 % (40.0-70.0) H 04/11/19 05:05 Seg Neutrophils # 5.5 K/mm3 (1.8-7.7) 04/11/19 05:05 PT 17.9 Sec. (12.2-14.9) H 04/10/19 21:02 INR 1.38 (0.87-1.13) H 04/10/19 21:02 Sodium 140 mmol/L (137-145) 04/11/19 05:05 Potassium 4.5 mmol/L (3.6-5.0) 04/11/19 05:05 Chloride 105.3 mmol/L (98-107) 04/11/19 05:05 Carbon Dioxide 23 mmol/L (22-30) 04/11/19 05:05 16 mmol/L 04/11/19 05:05 BUN 87 mg/dL (9-20) H 04/11/19 05:05 7.1 mg/dL (0.8-1.5) H 04/11/19 05:05 Estimated GFR 9 ml/min 04/11/19 05:05 12 % 04/11/19 05:05 Glucose 111 mg/dL (75-100) H 04/11/19 05:05 Lactic Acid 1.50 mmol/L (0.7-2.0) 04/10/19 17:29 Calcium 8.1 mg/dL (8.4-10.2) L 04/11/19 05:05 Iron 62 ug/dL (49-181) 04/10/19 20:43 Iron 63 ug/dL (49-181) 04/10/19 20:43 TIBC 168 mcg/dL (250-450) L 04/10/19 20:43 TIBC 176 mcg/dL (250-450) L 04/10/19 20:43 % Saturation 37.50 % 04/10/19 20:43 154 mg/dl (180-329) L 04/10/19 20:43 < 0.20 mg/dL (0.1-1.2) 04/10/19 17:29 AST 11 units/L (5-40) 04/10/19 17:29 ALT 11 units/L (7-56) 04/10/19 17:29 33 units/L (35-129) L 04/10/19 17:29 0.064 ng/mL (0.00-0.029) H 04/10/19 23:10 5.6 g/dL (6.3-8.2) L 04/10/19 17:29 3.0 g/dL (3.9-5) L 04/10/19 17:29 1.2 % 04/10/19 17:29 Triglycerides 307 mg/dL (2-149) H 04/10/19 17:29 Cholesterol 135 mg/dL (50-199) 04/10/19 17:29 64 mg/dL (50-130) 04/10/19 17:29 29 mg/dL (40-59) L 04/10/19 17:29 4.65 % 04/10/19 17:29 Vitamin B12 298.4 pg/mL (211-911) 04/10/19 20:43 Blood Type A POSITIVE 04/10/19 18:12 Antibody Screen Negative 04/10/19 18:12 Crossmatch See Detail 04/10/19 18:12 Active Medications - Current Medications Current Medications: Generic Name Dose Route Start Last Admin Trade Name Freq PRN Reason Stop Dose Admin Acetaminophen 650 mg 04/10/19 20:29 Tylenol PO Q4H PRN Pain MILD(1-3)/Fever >100.5/STOLL Albuterol 2.5 mg 04/10/19 20:29 Proventil IH Q3HRT PRN Shortness Of Breath Allopurinol 100 mg 04/11/19 10:00 Zyloprim PO QDAY DARNELL Apixaban 5 mg 04/11/19 10:00 04/11/19 10:24 Eliquis PO 5 mg Q12HR DARNELL Administration Protocol Aspirin 81 mg 04/11/19 10:00 04/11/19 10:23 Baby Aspirin PO 81 mg QDAY DARNELL Administration Budesonide 0.5 mg 04/10/19 20:30 04/11/19 09:48 Pulmicort IH 0.5 mg Q12HRT DARNELL Administration Docusate Sodium 100 mg 04/10/19 22:00 04/11/19 10:24 Colace PO 100 mg BID DARNELL Administration Ferrous Sulfate 325 mg 04/11/19 08:00 04/11/19 10:24 Feosol PO 325 mg TID DARNELL Administration Sodium Chloride 100 mls @ 999 mls/hr 04/11/19 10:05 Nacl 0.9% IV LIZANDRO PRN Hypotension in HD Ipratropium [place] 0.5 mg 04/11/19 20:00 Atrovent IH BIDRT DARNELL Lanthanum Carbonate 2,000 mg 04/11/19 08:00 04/11/19 10:24 Fosrenol PO 2,000 mg TIDWM DARNELL Administration Morphine Sulfate 2 mg 04/10/19 20:29 Morphine IV 04/11/19 23:59 Q4H PRN Pain, Moderate (4-6) Ondansetron HCl 4 mg 04/10/19 20:29 04/11/19 10:25 Zofran IV 4 mg Q8H PRN Administration Nausea And Vomiting Pravastatin Sodium 40 mg 04/11/19 22:00 Pravachol PO QHS DARNELL Sodium Chloride 10 ml 04/10/19 22:00 04/11/19 10:25 Sodium Chloride Flush Syringe 10 Ml IV 10 ml BID DARNELL Administration Sodium Chloride 10 ml 04/10/19 20:29 Sodium Chloride Flush Syringe 10 Ml IV PRN PRN LINE FLUSH
[2019-04-11] MEDS: PROTONIX IV SCH ×2 (17:23→21:27)
--- NOTE | 2019-04-11 17:29 | Consultation ---
History of Present Illness - Reason for Consult Consult date: 04/11/19 anemia Requesting physician: NOHEMI BRADFORD - History of Present Illness Mr. Britt is a 78-year-old man on dialysis for end-stage renal disease who was admitted with hypotension and weakness and found to be profoundly anemic. He presented with a hemoglobin of 5.6. His most recent hemoglobin in October 2018 was 11. He was admitted for further evaluation. Patient denies known history of anemia. He states that he was recently in [place] and his Coumadin was switched to our request on March [id number]. He does take a baby aspirin. He has coronary artery disease with stent 3. He denies any abdominal pain nausea or vomiting. He states that his bowel movements are usually regular on a daily basis but that for the last 3 weeks he has been somewhat constipated. He does note that he thinks his stool was black yesterday in the hospital but that the nurse sought and was not concerned. It was sent for testing to the lab. He denies weight loss fevers chills or sweats. He does complain of some dysuria. He denies chest pain or shortness of breath. He is status post transfusion. Past History Past Medical History: acute [place] (cardiac stents x3), arthritis, CAD, COPD, dialysis, ESRD, heart failure, hypertension, renal failure (on HD M/W/F) Past Surgical History: Other (s/p stents x3) Social history: other (former smoker quit 30 years ago) Family history: no significant family history Medications and Allergies Allergies Allergy/AdvReac Type Severity Reaction Status Date / Time atorvastatin calcium Allergy Mild Unknown Verified 11/20/17 13:39 [From Lipitor] ciprofloxacin [From Cipro] Allergy Mild Bleeding Verified 11/20/17 13:39 ciprofloxacin HCl Allergy Mild Bleeding Verified 11/20/17 13:39 [From Cipro] simvastatin Allergy Mild Unknown Verified 11/20/17 13:39 Home Medications Medication Instructions Recorded Confirmed Last Taken Type Albuterol Sulfate [Proair 90 mcg IH QID PRN 08/28/18 04/10/19 08/26/18 History Respiclick] Aspirin [Aspirin BABY CHEW TAB] 81 mg PO QDAY 08/28/18 04/10/19 08/26/18 History Lanthanum Carbonate [Fosrenol] 2,000 mg PO TID 08/28/18 04/10/1918 History NIFEdipine [Adalat cc] 60 mg PO BID 08/28/18 04/10/19 08/26/18 History Rosuvastatin Calcium [Crestor] 5 mg PO DAILY 08/28/18 04/10/19 08/26/18 History Sodium Bicarbonate 650 mg PO BID 08/28/18 04/10/19 08/26/18 History Terazosin HCl 10 mg PO HS 08/28/18 04/10/19 08/26/18 History Tiotropium [Spiriva] 2 puff DAILY 08/28/18 04/10/19 08/26/18 History Amiodarone HCl [Amiodarone 100 MG 100 mg PO DAILY 04/10/19 04/10/19 Unknown History TAB] Apixaban [Eliquis] 5 mg PO Q12H 04/10/19 04/10/19 Unknown History Metoprolol Xl [Metoprolol 50 mg PO DAILY 04/10/19 04/10/19 Unknown History SUCCINATE ER TAB] Active Meds: Active Medications Acetaminophen (Tylenol) 650 mg PO Q4H PRN PRN Reason: Pain MILD(1-3)/Fever >100.5/STOLL Last Admin: 04/11/19 17:21 Dose: 650 mg Documented by: Albuterol (Proventil) 2.5 mg IH Q3HRT PRN PRN Reason: Shortness Of Breath Allopurinol (Zyloprim) 100 mg PO QDAY [facility] Aspirin (Baby Aspirin) 81 mg PO QDAY [facility] Last Admin: 04/11/19 10:23 Dose: 81 mg Documented by: Budesonide (Pulmicort) 0.5 mg IH Q12HRT [facility] Last Admin: 04/11/19 09:48 Dose: 0.5 mg Documented by: Docusate Sodium (Colace) 100 mg PO BID [facility] Last Admin: 04/11/19 10:24 Dose: 100 mg Documented by: Ferrous Sulfate (Feosol) 325 mg PO TID [facility] Last Admin: 04/11/19 17:23 Dose: 325 mg Documented by: Sodium Chloride (Nacl 0.9%) 100 mls @ 999 mls/hr IV LIZANDRO PRN PRN Reason: Hypotension in HD Ipratropium [place] (Atrovent) 0.5 mg IH BIDRT [facility] Lanthanum Carbonate (Fosrenol) 2,000 mg PO TIDWM [facility] Last Admin: 04/11/19 17:24 Dose: 2,000 mg Documented by: Morphine Sulfate (Morphine) 2 mg IV Q4H PRN PRN Reason: Pain, Moderate (4-6) Stop: 04/11/19 23:59 Ondansetron HCl (Zofran) 4 mg IV Q8H PRN PRN Reason: Nausea And Vomiting Last Admin: 04/11/19 10:25 Dose: 4 mg Documented by: Pantoprazole Sodium (Protonix) 40 mg IV BID [facility] Last Admin: 04/11/19 17:23 Dose: 40 mg Documented by: Pravastatin Sodium (Pravachol) 40 mg PO QHS [facility] Sodium Chloride (Sodium Chloride Flush Syringe 10 Ml) 10 ml IV BID [facility] Last Admin: 04/11/19 10:25 Dose: 10 ml Documented by: Sodium Chloride (Sodium Chloride Flush Syringe 10 Ml) 10 ml IV PRN PRN PRN Reason: LINE FLUSH Review of Systems All systems: negative (as noted) Exam - Constitutional Vitals: Temp Pulse Resp BP Pulse Ox 97.4 F L 73 16 123/65 100 04/11/19 15:03 04/11/19 15:15 04/11/19 15:03 04/11/19 15:15 04/11/19 14:17 General appearance: Present: no acute distress - EENT Eyes: Present: PERRL, EOM intact ENT: hearing intact - Respiratory Respiratory effort: normal Respiratory: bilateral: CTA - Cardiovascular Rhythm: regular Heart Sounds: Present: S1 & S2 - Extremities Extremity abnormal: other (LUE with AV fistula) - Abdominal General gastrointestinal: Present: soft, non-tender Results - Labs CBC & Chem 7: 04/11/19 10:43 04/11/19 05:05 Labs: Abnormal lab results 04/10/19 04/10/19 04/10/19 Range/Units 17:29 17:29 18:12 RBC 2.00 L (3.65-5.03) M/mm3 Hgb 5.6 L* (11.8-15.2) gm/dl Hct 16.6 L* (35.5-45.6) % MCV 83 L (84-94) fl RDW 18.3 H (13.2-15.2) % Plt Count (140-440) K/mm3 Lymph % (Auto) 7.8 L (13.4-35.0) % [place] % (Auto) (0.0-7.3) % Lymph # 0.7 L (1.2-5.4) K/mm3 Seg Neutrophils % 83.2 H (40.0-70.0) % PT (12.2-14.9) Sec. INR (0.87-1.13) BUN 65 H (9-20) mg/dL Creatinine 5.9 H (0.8-1.5) mg/dL Glucose 111 H (75-100) mg/dL Calcium (8.4-10.2) mg/dL TIBC (250-450) mcg/dL Transferrin (180-329) mg/dl Ferritin (13.0-400.0) ng/mL Alkaline Phosphatase 33 L (35-129) units/L Troponin T 0.068 H (0.00-0.029) ng/mL Total Protein 5.6 L (6.3-8.2) g/dL Albumin 3.0 L (3.9-5) g/dL Triglycerides 307 H (2-149) mg/dL HDL Cholesterol 29 L (40-59) mg/dL Crossmatch See Detail 04/10/19 04/10/19 04/10/19 Range/Units 20:43 20:43 21:02 RBC (3.65-5.03) M/mm3 Hgb (11.8-15.2) gm/dl Hct (35.5-45.6) % MCV (84-94) fl RDW (13.2-15.2) % Plt Count (140-440) K/mm3 Lymph % (Auto) (13.4-35.0) % [place] % (Auto) (0.0-7.3) % Lymph # (1.2-5.4) K/mm3 Seg Neutrophils % (40.0-70.0) % PT 17.9 H (12.2-14.9) Sec. INR 1.38 H (0.87-1.13) BUN (9-20) mg/dL Creatinine (0.8-1.5) mg/dL Glucose (75-100) mg/dL Calcium (8.4-10.2) mg/dL TIBC 176 L 168 L (250-450) mcg/dL Transferrin 154 L (180-329) mg/dl Ferritin (13.0-400.0) ng/mL Alkaline Phosphatase (35-129) units/L Troponin T (0.00-0.029) ng/mL Total Protein (6.3-8.2) g/dL Albumin (3.9-5) g/dL Triglycerides (2-149) mg/dL HDL Cholesterol (40-59) mg/dL Crossmatch 04/10/19 04/11/19 04/11/19 Range/Units 23:10 05:05 05:05 RBC 2.26 L (3.65-5.03) M/mm3 Hgb 6.6 L (11.8-15.2) gm/dl Hct 19.7 L* (35.5-45.6) % MCV (84-94) fl RDW 19.2 H (13.2-15.2) % Plt Count 124 L (140-440) K/mm3 Lymph % (Auto) 13.3 L (13.4-35.0) % Richardson % (Auto) 10.3 H (0.0-7.3) % Lymph # 1.0 L (1.2-5.4) K/mm3 Seg Neutrophils % 73.9 H (40.0-70.0) % PT (12.2-14.9) Sec. INR (0.87-1.13) BUN 87 H (9-20) mg/dL Creatinine 7.1 H (0.8-1.5) mg/dL Glucose 111 H (75-100) mg/dL Calcium 8.1 L (8.4-10.2) mg/dL TIBC (250-450) mcg/dL Transferrin (180-329) mg/dl Ferritin (13.0-400.0) ng/mL Alkaline Phosphatase (35-129) units/L Troponin T 0.064 H (0.00-0.029) ng/mL Total Protein (6.3-8.2) g/dL Albumin (3.9-5) g/dL Triglycerides (2-149) mg/dL HDL Cholesterol (40-59) mg/dL Crossmatch 04/11/19 04/11/19 Range/Units 10:43 10:43 RBC (3.65-5.03) M/mm3 Hgb 6.9 L (11.8-15.2) gm/dl Hct 20.3 L (35.5-45.6) % MCV (84-94) fl RDW (13.2-15.2) % Plt Count (140-440) K/mm3 Lymph % (Auto) (13.4-35.0) % Richardson % (Auto) (0.0-7.3) % Lymph # (1.2-5.4) K/mm3 Seg Neutrophils % (40.0-70.0) % PT (12.2-14.9) Sec. INR (0.87-1.13) BUN (9-20) mg/dL Creatinine (0.8-1.5) mg/dL Glucose (75-100) mg/dL Calcium (8.4-10.2) mg/dL TIBC (250-450) mcg/dL Transferrin (180-329) mg/dl Ferritin 855.7 H (13.0-400.0) ng/mL Alkaline Phosphatase (35-129) units/L Troponin T (0.00-0.029) ng/mL Total Protein (6.3-8.2) g/dL Albumin (3.9-5) g/dL Triglycerides (2-149) mg/dL HDL Cholesterol (40-59) mg/dL Crossmatch Assessment and Plan 1. Anemia - etiology unclear. Patient is status post colonoscopy on 12/26/2016 which showed 1 polyp and some diverticulosis. Given that he is on blood t hinners, and on aspirin, we need to exclude possible upper GI source of bleeding such as peptic ulcer disease. Patient appears to be clinically stable at present. I would want him off all questions for 48 hours and we will proceed with an upper endoscopy. The meantime, continue proton pump inhibitors and monitor H&H and transfuse as needed.
--- NOTE | 2019-04-11 18:54 | Consultation ---
History of Present Illness - Reason for Consult Consult date: 04/11/19 end stage renal disease - History of Present Illness Mr. Britt is a 78-year-old -[place] male with ESRD and atrial fibrillation who was in usual state of health until dialysis yesterday when he became hypotensive. Treatment was terminated early due to hypotension. However, patient went home following dialysis treatment. He later left his home to run errands. While out, he became dizzy and experienced a near syncopal episode which prompted his presentation to the ED. In the ED, lpatient was hypotension w / SBP in 80s. Labs were notable for Hb 5.6. He reports an episode of black stool on day prior to admission. He denies BRBPR, nausea and abdominal pain. Past History Past Medical History: acute SD (cardiac stents x3), arthritis, CAD, COPD, dialysis, ESRD, heart failure, hypertension, renal failure (on HD M/W/F) Past Surgical History: Other (s/p stents x3) Social history: other (former smoker quit 30 years ago) Family history: no significant family history Medications and Allergies Allergies Allergy/AdvReac Type Severity Reaction Status Date / Time atorvastatin calcium Allergy Mild Unknown Verified 11/20/17 13:39 [From Lipitor] ciprofloxacin [From Cipro] Allergy Mild Bleeding Verified 11/20/17 13:39 ciprofloxacin HCl Allergy Mild Bleeding Verified 11/20/17 13:39 [From Cipro] simvastatin Allergy Mild Unknown Verified 11/20/17 13:39 Home Medications Medication Instructions Recorded Confirmed Last Taken Type Albuterol Sulfate [Proair 90 mcg IH QID PRN 08/28/18 04/10/19 08/26/18 History Respiclick] Aspirin [Aspirin BABY CHEW TAB] 81 mg PO QDAY 08/28/18 04/10/19 08/26/18 History Lanthanum Carbonate [Fosrenol] 2,000 mg PO TID 08/28/18 04/10/19 08/26/18 H istory NIFEdipine [Adalat cc] 60 mg PO BID 08/28/18 04/10/19 08/26/18 History Rosuvastatin Calcium [Crestor] 5 mg PO DAILY 08/28/18 04/10/19 08/26/18 History Sodium Bicarbonate 650 mg PO BID 08/28/18 04/10/19 08/26/18 History Terazosin HCl 10 mg PO HS 08/28/18 04/10/19 08/26/18 History Tiotropium [Spiriva] 2 puff DAILY 08/28/18 04/10/19 08/26/18 History Amiodarone HCl [Amiodarone 100 MG 100 mg PO DAILY 04/10/19 04/10/19 Unknown History TAB] Apixaban [Eliquis] 5 mg PO Q12H 04/10/19 04/10/19 Unknown History Metoprolol Xl [Metoprolol 50 mg PO DAILY 04/10/19 04/10/19 Unknown History SUCCINATE ER TAB] Active Meds: Active Medications Acetaminophen (Tylenol) 650 mg PO Q4H PRN PRN Reason: Pain MILD(1-3)/Fever >100.5/STOLL Last Admin: 04/11/19 17:21 Dose: 650 mg Documented by: Albuterol (Proventil) 2.5 mg IH Q3HRT PRN PRN Reason: Shortness Of Breath Allopurinol (Zyloprim) 100 mg PO QDAY [facility] Last Admin: 04/11/19 10:24 Dose: 100 mg Documented by: Aspirin (Baby Aspirin) 81 mg PO QDAY [facility] Last Admin: 04/11/19 10:23 Dose: 81 mg Documented by: Budesonide (Pulmicort) 0.5 mg IH Q12HRT [facility] Last Admin: 04/11/19 09:48 Dose: 0.5 mg Documented by: Docusate Sodium (Colace) 100 mg PO BID [facility] Last Admin: 04/11/19 10:24 Dose: 100 mg Documented by: Ferrous Sulfate (Feosol) 325 mg PO TID [facility] Last Admin: 04/11/19 17:23 Dose: 325 mg Documented by: Sodium Chloride (Nacl 0.9%) 100 mls @ 999 mls/hr IV LIZANDRO PRN PRN Reason: Hypotension in HD Ipratropium [place] (Atrovent) 0.5 mg IH BIDRT [facility] Lanthanum Carbonate (Fosrenol) 2,000 mg PO TIDWM [facility] Last Admin: 04/11/19 17:24 Dose: 2,000 mg Documented by: Morphine Sulfate (Morphine) 2 mg IV Q4H PRN PRN Reason: Pain, Moderate (4-6) Stop: 04/11/19 23:59 Ondansetron HCl (Zofran) 4 mg IV Q8H PRN PRN Reason: Nausea And Vomiting Last Admin: 04/11/19 10:25 Dose: 4 mg Documented by: Pantoprazole Sodium (Protonix) 40 mg IV BID [facility] Last Admin: 04/11/19 17:23 Dose: 40 mg Documented by: Pravastatin Sodium (Pravachol) 40 mg PO QHS [facility] Sodium Chloride (Sodium Chloride Flush Syringe 10 Ml) 10 ml IV BID [facility] Last Admin: 04/11/19 10:25 Dose: 10 ml Documented by: Sodium Chloride (Sodium Chloride Flush Syringe 10 Ml) 10 ml IV PRN PRN PRN Reason: LINE FLUSH Review of Systems All systems: negative Exam - Vital Signs Vital signs: Vital Signs BP 87/43 04/10/19 17:03 - General Appearance General appearance: well-developed, well-nourished EENT: ATNC Respiratory: Clear to Ascultation Heart: regular, S1S2 Gastrointestinal: Present: obese. Absent: tenderness, distended Integumentary: no rash, warm and dry Neurologic: alert and oriented x3 Musculoskeletal: Present: other (no edema) Psychiatric: cooperative Results - Lab Results 04/11/19 10:43 04/11/19 05:05 Most recent lab results Calcium 8.1 mg/dL (8.4-10.2) L 04/11/19 05:05 Assessment and Plan Impression: * End stage renal disease * Anemia secondary to acute blood loss * GI bleed * Hypotension * Hx of hypertension * Hx of CAD * Chronic anticoagulation Plan * Hemodialysis today as patient was unable to compete treatment yesterday * Transfuse pRBC with dialysis today * GI recommendations noted * AntiHTN medications on hold * Dose medications for renal function * Diet per GI * Epogen TIW prn
[2019-04-11] MEDS: ATROVENT IH SCH (20:17)
[2019-04-11] MEDS: PRAVACHOL PO SCH (21:27)
[2019-04-12 08:38] LABS: Hemoglobin 6.1 gm/dl (11.8-15.2); Mean Corpuscular HGB Conc 33 % (32-34); Mean Corpuscular Volume 89 fl (84-94); Platelet Count 112 K/mm3 (140-440); Red Blood Count 2.09 M/mm3 (3.65-5.03); Red Cell Distribution Width 17.3 % (13.2-15.2)
[2019-04-12] MEDS ORDERED: NACL 0.9% 500 ML 500 ML IV ONE ×2 (08:41→12:00)
[2019-04-12 08:50] LABS: Hematocrit 18.5 % (35.5-45.6)
[2019-04-12] MEDS: ATROVENT IH SCH ×2 (08:56→21:31)
[2019-04-12] MEDS: PULMICORT IH SCH ×2 (08:56→21:30)
[2019-04-12] MEDS: COLACE PO SCH ×2 (09:27→21:02)
[2019-04-12] MEDS: FEOSOL PO SCH ×3 (09:27→20:10)
[2019-04-12] MEDS: FOSRENOL PO SCH ×3 (09:27→17:16)
[2019-04-12] MEDS: SODIUM CHLORIDE FLUSH SYRINGE 10 ML IV SCH ×2 (09:28→22:02)
[2019-04-12] MEDS: PROTONIX IV SCH ×2 (09:28→21:02)
[2019-04-12] MEDS: ZOFRAN IV PRN (09:28)
[2019-04-12] MEDS: ZYLOPRIM PO SCH (09:29)
--- NOTE | 2019-04-12 13:07 | Cat Scan Report ---
EXAM: CT ABDOMEN PELVIS WO CON HISTORY: acute blood loss anemia TECHNIQUE: Spiral axial CT images are obtained through the abdomen and pelvis without the administrat ion of intravenous contrast. Additional coronal and sagittal reformatted images are reconstructed. COMPARISON: None available. FINDINGS: GASTROINTESTINAL TRACT: Colonic diverticulosis, without evidence for diverticulitis. No evidence for bowel herniation, bowel obstruction, or colitis is seen. There are no stigmata of bowel obstruction, colitis or diverticulitis. A normal-appearing appendix is seen. GENITOURINARY SYSTEM: The kidneys are severely atrophic in keeping with insufficiency or chronic kristyn l failure. There is evidence for mild right hydronephrosis and hydroureter in keeping with obstructiv e uropathy, but there is no discernible radiodense ureteral stone or obstructing lesion seen; differe ntial diagnosis includes sequela of a recently passed ureteral stone with residual edema and/or spasm at the UVJ, and occult or radiolucent distal ureteral stone or mucosal lesion. Clinical correlation is advised. No gross urine extravasation is seen. There is mild prostatomegaly (5 cm transverse) in k eeping with BPH. There is a mildly thickened appearance of the urinary bladder wall which may represe nt sequela of incomplete bladder distention or chronic muscle wall hypertrophy secondary to chronic p artial outlet obstruction, but cannot rule out postinflammatory change or cystitis in the appropriate clinical setting. Clinical correlation is advised. CT ABDOMEN: Severe aortoiliac atherosclerotic disease, without aneurysm formation. Small calcified g ranulomas are seen in the spleen. The liver, pancreas, adrenal glands, gallbladder and inferior vena cava are within normal limits for a noncontrast CT scan. There is no intra-abdominal or retroperiton eal lymphadenopathy, free fluid, or free air seen. No abdominal herniation is noted. There is diffus e prominence of the retroperitoneal fatty fashion keeping with retroperitoneal process in the appropr iate clinical setting. The abdomen is obese, with abundant intraperitoneal fat. CT PELVIS: Multilevel degenerative disease is seen in the lumbar spine. Osteoarthritis is seen in the hips. The visualized bony structures are otherwise within normal limits. No pelvic sidewall or ingu inal lymphadenopathy is seen. No inguinal herniation is noted. No free fluid or free air is seen. LUNG BASES: The lung bases are clear. There is severe coronary atherosclerosis. There is a small ante rior pericardial effusion (1.7 cm thick). IMPRESSION: The kidneys are severely atrophic in keeping with insufficiency or chronic renal failure. Mild right hydronephrosis and hydroureter in keeping with obstructive uropathy, but there is no disce rnible radiodense ureteral stone or obstructing lesion seen; DDX includes sequela of a recently passe d ureteral stone with residual edema and/or spasm at the UVJ, and occult or radiolucent distal ureter al stone or mucosal lesion. Clinical correlation is advised. No gross urine extravasation is seen. Mild prostatomegaly (5 cm transverse) in keeping with BPH. Mildly thickened appearance of the urinary bladder wall which may represent sequela of incomplete ten dder distention or chronic muscle wall hypertrophy secondary to chronic partial outlet obstruction, b ut cannot rule out postinflammatory change or cystitis in the appropriate clinical setting. Clinical correlation is advised. Diverticulosis coli, without discernible diverticulitis. No evidence for acute appendicitis, bowel obstruction or colitis seen. No free fluid, free air, mass lesions, or lymphadenopathy seen. Small anterior pericardial effusion (1.7 cm thick). This document is electronically signed by Soto Joseph MD., April 12 2019 01:05:32 PM ET
[2019-04-12 13:30] LABS: Hepatitis B Surface Antigen Non-Reactive (Negative); Hepatitis C Virus Antibody Non-Reactive (NonReactive)
--- NOTE | 2019-04-12 14:34 | Progress Note ---
Assessment and Plan Impression: * End stage renal disease (outpatient MWF schedule) * Anemia secondary to acute blood loss * GI bleed * Hypotension * Hx of hypertension * Hx of CAD * Chronic anticoagulation Plan * Patient is s/p hemodialysis yesterday * Resume MWF schedule tomorrow * UF as tolerated * Transfuse pRBC prn * GI recommendations noted - endoscopy planned for tomorrow * AntiHTN medications on hold due to hypotension * Dose medications for renal function * Diet per GI * Epogen TIW prn Subjective Date of service: 04/12/19 Interval history: Patient reports black stool today. pRBC transfusion in progress. Objective - Vital Signs Vital signs: Vital Signs - 12hr 04/12/19 04/12/19 04/12/19 04:07 05:42 08:29 Temperature 98.9 F 97.9 F Pulse Rate 81 84 89 Pulse Rate [ From Monitor] Respiratory 20 18 18 Rate Blood Pressure 100/64 Blood Pressure 136/57 95/34 [Right] O2 Sat by Pulse 100 100 100 Oximetry 04/12/19 04/12/19 04/12/19 10:00 10:48 12:00 Temperature 98.9 F Pulse Rate 86 91 H Pulse Rate [ 89 From Monitor] Respiratory 18 Rate Blood Pressure 108/56 Blood Pressure [Right] O2 Sat by Pulse 100 Oximetry 04/12/19 04/12/19 04/12/19 12:32 12:50 13:01 Temperature 98.5 F 98.5 F Pulse Rate 87 85 86 Pulse Rate [ From Monitor] Respiratory 16 Rate Blood Pressure 102/52 103/44 112/51 Blood Pressure [Right] O2 Sat by Pulse 100 Oximetry - General Appearance General appearance: well-developed, well-nourished EENT: ATNC Respiratory: Present: Clear to Ascultation Cardiology: regular, S1S2 Gastrointestinal: normal, no tenderness, no distended Integumentary: warm and dry Neurologic: alert and oriented x3 Musculoskeletal: other (no edema) Psychiatric: cooperative - Lab 04/12/19 07:56 04/11/19 05:05 Most recent lab results Calcium 8.1 mg/dL (8.4-10.2) L 04/11/19 05:05 Medications & Allergies - Medications Allergies/Adverse Reactions: Allergies atorvastatin calcium [From Lipitor] Allergy (Mild, Verified 11/20/17 13:39) Unknown ACHES ciprofloxacin [From Cipro] Allergy (Mild, Verified 11/20/17 13:39) Bleeding NOSE BLEED ciprofloxacin HCl [From Cipro] Allergy (Mild, Verified 11/20/17 13:39) Bleeding NOSE BLEED simvastatin Allergy (Mild, Verified 11/20/17 13:39) Unknown ACHES Home Medications: Home Medications Medication Instructions Recorded Confirmed Last Taken Type Albuterol Sulfate [Proair 90 mcg IH QID PRN 08/28/18 04/10/19 08/26/18 History Respiclick] Aspirin [Aspirin BABY CHEW TAB] 81 mg PO QDAY 08/28/18 04/10/19 08/26/18 History Lanthanum Carbonate [Fosrenol] 2,000 mg PO TID 08/28/18 04/10/19 08/26/18 History NIFEdipine [Adalat cc] 60 mg PO BID 08/28/18 04/10/19 08/26/18 History Rosuvastatin Calcium [Crestor] 5 mg PO DAILY 08/28/18 04/10/19 08/26/18 History Sodium Bicarbonate 650 mg PO BID 08/28/18 04/10/19 08/26/18 History Terazosin HCl 10 mg PO HS 08/28/18 04/10/19 08/26/18 History Tiotropium [Spiriva] 2 puff DAILY 08/28/18 04/10/19 08/26/18 History Amiodarone HCl [Amiodarone 100 MG 100 mg PO DAILY 04/10/19 04/10/19 Unknown History TAB] Apixaban [Eliquis] 5 mg PO Q12H 04/10/19 04/10/19 Unknown History Metoprolol Xl [Metoprolol 50 mg PO DAILY 04/10/19 04/10/19 Unknown History SUCCINATE ER TAB] Active Medications: Generic Name Dose Route Start Last Admin Trade Name Freq PRN Reason Stop Dose Admin Acetaminophen 650 mg 04/10/19 20:29 04/11/19 21:29 Tylenol PO 650 mg Q4H PRN Administration Pain MILD(1-3)/Fever >100.5/STOLL Albuterol 2.5 mg 04/10/19 20:29 Proventil IH Q3HRT PRN Shortness Of Breath Allopurinol 100 mg 04/11/19 10:00 04/12/19 09:29 Zyloprim PO Not Given QDAY DAR[facility]LL Budesonide 0.5 mg 04/10/19 20:30 04/12/19 08:56 Pulmicort IH Not Given Q12HRT [facility] Docusate Sodium 100 mg 04/10/19 22:00 04/12/19 09:27 Colace PO 100 mg BID DARNELL Administration Ferrous Sulfate 325 mg 04/11/19 08:00 04/12/19 09:27 Feosol PO 325 mg TID DARNELL Administration Sodium Chloride 100 mls @ 999 mls/hr 04/11/19 10:05 Nacl 0.9% IV LIZANDRO PRN Hypotension in HD Ipratropium [place] 0.5 mg 04/11/19 20:00 04/12/19 08:56 Atrovent IH Not Given BIDRT [facility] Lanthanum Carbonate 2,000 mg 04/11/19 08:00 04/12/19 09:27 Fosrenol PO 2,000 mg TIDWM DARNELL Administration Ondansetron HCl 4 mg 04/10/19 20:29 04/12/19 09:28 Zofran IV 4 mg Q8H PRN Administration Nausea And Vomiting Pantoprazole Sodium 40 mg 04/11/19 14:00 04/12/19 09:28 Protonix IV 40 mg BID DARNELL Administration Pravastatin Sodium 40 mg 04/11/19 22:00 04/11/19 21:27 Pravachol PO 40 mg QHS DARNELL Administration Sodium Chloride 10 ml 04/10/19 22:00 04/12/19 09:28 Sodium Chloride Flush Syringe 10 Ml IV 10 ml BID DARNELL Administration Sodium Chloride 10 ml 04/10/19 20:29 Sodium Chloride Flush Syringe 10 Ml IV PRN PRN LINE FLUSH
--- NOTE | 2019-04-12 15:07 | Progress Note ---
Assessment and Plan Assessment and plan: 78-year-old -[place] male with history of COPD, coronary artery disease status post stent 3, HLD, ESRD on HD M/W/F, HTN who presents to [facility] ED via EMS with complaints of hypotension and generalized weakness. Patient was found to be profoundly anemic with hemoglobin of 5.6. He was hypotensive with blood pressure of 87/43. He was given iv fluids admitted. Acute on chronic anemia likely duerto GI bleed Acute GI bleed - For EGD on Mon Hypotension ESRD on HD M/W/F Frailty HLD COPD CAD s/p coronary stent 3 History of hypertension History of gout Plan: Continue supportive care Monitor Hgb; transfuse PRN Received 4 Units PRBC, but Hgb only 6.1 today. he denies vomiting blood. No bowel movements since 2 days, no obvious blood per rectum. Will transfuse 2 Units PRBC more to total [address] Abd done today-no bleed Hematology consulted Resume home ferrous sulfate 325mg 3 times a day Nephrology consulted for HD management Hold Aspirin because of bleed Hold Eliquis because of GI bleed Consulted and discussed with Dr. Mccarthy - For EGD tomorrow Pravastatin 40mg at bedtime Scheduled Pulmicort; albuterol when necessary Monitor BP Hold antihypertensive medication for now History Interval history: Dizziness Near syncope Dark stools for 1 week Hospitalist Physical - Physical exam Narrative exam: Gen: Not in acute distress, lying in bed, obese HEENT: Normocephalic, atraumatic Neck: supple, no JVD Heart: S1 and S2 reg, no murmurs, rubs or gallop Lungs: Clear, no crackles, no wheeze Abd: soft, non tender, non distended, normal BS Ext: No edema, no clubbing, no cyanosis, Neuro: Awake,alert, oriented x 3, moves all ext, non focal Psych:Normal mood - Constitutional Vitals: Temp Pulse Resp BP Pulse Ox 98.5 F 86 16 112/51 100 04/12/19 13:01 04/12/19 13:01 04/12/19 12:32 04/12/19 13:01 04/12/19 12:32 General appearance: Present: no acute distress Results - Labs CBC & Chem 7: 04/12/19 07:56 04/11/19 05:05 Labs: Laboratory Last Values WBC 8.0 K/mm3 (4.5-11.0) 04/12/19 07:56 RBC 2.09 M/mm3 (3.65-5.03) L 04/12/19 07:56 Hgb 6.1 gm/dl (11.8-15.2) L 04/12/19 07:56 Hct 18.5 % (35.5-45.6) L* 04/12/19 07:56 MCV 89 fl (84-94) 04/12/19 07:56 MCH 29 pg (28-32) 04/12/19 07:56 MCHC 33 % (32-34) 04/12/19 07:56 RDW 17.3 % (13.2-15.2) H 04/12/19 07:56 Plt Count 112 K/mm3 (140-440) L 04/12/19 07:56 Lymph % (Auto) 13.3 % (13.4-35.0) L 04/11/19 05:05 [place] % (Auto) 10.3 % (0.0-7.3) H 04/11/19 05:05 Eos % (Auto) 1.8 % (0.0-4.3) 04/11/19 05:05 Baso % (Auto) 0.7 % (0.0-1.8) 04/11/19 05:05 Lymph # 1.0 K/mm3 (1.2-5.4) L 04/11/19 05:05 [place] # 0.8 K/mm3 (0.0-0.8) 04/11/19 05:05 Eos # 0.1 K/mm3 (0.0-0.4) 04/11/19 05:05 Baso # 0.1 K/mm3 (0.0-0.1) 04/11/19 05:05 Seg Neutrophils % 73.9 % (40.0-70.0) H 04/11/19 05:05 Seg Neutrophils # 5.5 K/mm3 (1.8-7.7) 04/11/19 05:05 PT 17.9 Sec. (12.2-14.9) H 04/10/19 21:02 INR 1.38 (0.87-1.13) H 04/10/19 21:02 Sodium 140 mmol/L (137-145) 04/11/19 05:05 Potassium 4.5 mmol/L (3.6-5.0) 04/11/19 05:05 Chloride 105.3 mmol/L (98-107) 04/11/19 05:05 Carbon Dioxide 23 mmol/L (22-30) 04/11/19 05:05 16 mmol/L 04/11/19 05:05 BUN 87 mg/dL (9-20) H 04/11/19 05:05 7.1 mg/dL (0.8-1.5) H 04/11/19 05:05 Estimated GFR 9 ml/min 04/11/19 05:05 12 % 04/11/19 05:05 Glucose 111 mg/dL (75-100) H 04/11/19 05:05 Lactic Acid 1.50 mmol/L (0.7-2.0) 04/10/19 17:29 Calcium 8.1 mg/dL (8.4-10.2) L 04/11/19 05:05 Iron 62 ug/dL (49-181) 04/10/19 20:43 Iron 63 ug/dL (49-181) 04/10/19 20:43 TIBC 168 mcg/dL (250-450) L 04/10/19 20:43 TIBC 176 mcg/dL (250-450) L 04/10/19 20:43 % Saturation 37.50 % 04/10/19 20:43 154 mg/dl (180-329) L 04/10/19 20:43 855.7 ng/mL (13.0-400.0) H 04/11/19 10:43 < 0.20 mg/dL (0.1-1.2) 04/10/19 17:29 AST 11 units/L (5-40) 04/10/19 17:29 ALT 11 units/L (7-56) 04/10/19 17:29 33 units/L (35-129) L 04/10/19 17:29 0.064 ng/mL (0.00-0.029) H 04/10/19 23:10 5.6 g/dL (6.3-8.2) L 04/10/19 17:29 3.0 g/dL (3.9-5) L 04/10/19 17:29 1.2 % 04/10/19 17:29 Triglycerides 307 mg/dL (2-149) H 04/10/19 17:29 Cholesterol 135 mg/dL (50-199) 04/10/19 17:29 64 mg/dL (50-130) 04/10/19 17:29 29 mg/dL (40-59) L 04/10/19 17:29 4.65 % 04/10/19 17:29 Vitamin B12 298.4 pg/mL (211-911) 04/10/19 20:43 Hepatitis A IgM Ab Non-reactive (NonReactive) 04/11/19 18:11 Hep Bs Antigen Non-reactive (Negative) 04/11/19 18:11 Hep B Core IgM Ab Non-reactive (NonReactive) 04/11/19 18:11 Non-reactive (NonReactive) 04/11/19 18:11 Blood Type A POSITIVE 04/10/19 18:12 Antibody Screen Negative 04/10/19 18:12 Crossmatch See Detail 04/10/19 18:12 Active Medications - Current Medications Current Medications: Generic Name Dose Route Start Last Admin Trade Name Freq PRN Reason Stop Dose Admin Acetaminophen 650 mg 04/10/19 20:29 04/11/19 21:29 Tylenol PO 650 mg Q4H PRN Administration Pain MILD(1-3)/Fever >100.5/STOLL Albuterol 2.5 mg 04/10/19 20:29 Proventil IH Q3HRT PRN Shortness Of Breath Allopurinol 100 mg 04/11/19 10:00 04/12/19 09:29 Zyloprim PO Not Given QDAY D[facility] Budesonide 0.5 mg 04/10/19 20:30 04/12/19 08:56 Pulmicort IH Not Given Q12HRT [facility] Docusate Sodium 100 mg 04/10/19 22:00 04/12/19 09:27 Colace PO 100 mg BID DARNELL Administration Ferrous Sulfate 325 mg 04/11/19 08:00 04/12/19 09:27 Feosol PO 325 mg TID DARNELL Administration Sodium Chloride 100 mls @ 999 mls/hr 04/11/19 10:05 Nacl 0.9% IV LIZANDRO PRN Hypotension in HD Ipratropium [place] 0.5 mg 04/11/19 20:00 04/12/19 08:56 Atrovent IH Not Given BIDRT [facility] Lanthanum Carbonate 2,000 mg 04/11/19 08:00 04/12/19 09:27 Fosrenol PO 2,000 mg TIDWM DARNELL Administration Ondansetron HCl 4 mg 04/10/19 20:29 04/12/19 09:28 Zofran IV 4 mg Q8H PRN Administration Nausea And Vomiting Pantoprazole Sodium 40 mg 04/11/19 14:00 04/12/19 09:28 Protonix IV 40 mg BID DARNELL Administration Pravastatin Sodium 40 mg 04/11/19 22:00 04/11/19 21:27 Pravachol PO 40 mg QHS DARNELL Administration Sodium Chloride 10 ml 04/10/19 22:00 04/12/19 09:28 Sodium Chloride Flush Syringe 10 Ml IV 10 ml BID DARNELL Administration Sodium Chloride 10 ml 04/10/19 20:29 Sodium Chloride Flush Syringe 10 Ml IV PRN PRN LINE FLUSH
--- NOTE | 2019-04-12 16:16 | Progress Note ---
Assessment and Plan 1. Anemia - etiology unclear. Need to exclude UGI bleed given that stool is black. Patient is status post colonoscopy on 12/26/2016 which showed 1 polyp and some diverticulosis. Given that he is on blood thinners, and on aspirin, we need to exclude possible upper GI source of bleeding such as peptic ulcer disease. Patient appears to be clinically stable at present. I would want him off Eliquis x 48 hours and we will proceed with an upper endoscopy. The meantime, continue proton pump inhibitors and monitor H&H and transfuse as n eeded. - EGD in AM Subjective Date of service: 04/12/19 Interval history: Pt doing well. No complaints. Getting transfused. Objective - Constitutional Vitals: Vital Signs - 12hr 04/12/19 04/12/19 04/12/19 05:42 08:29 10:00 Temperature 98.9 F 97.9 F Pulse Rate 84 89 Pulse Rate [ 89 From Monitor] Respiratory 18 18 18 Rate Blood Pressure 100/64 Blood Pressure 95/34 [Right] O2 Sat by Pulse 100 100 100 Oximetry 04/12/19 04/12/19 04/12/19 10:48 12:00 12:32 Temperature 98.9 F 98.5 F Pulse Rate 86 91 H 87 Pulse Rate [ From Monitor] Respiratory 16 Rate Blood Pressure 108/56 102/52 Blood Pressure [Right] O2 Sat by Pulse 100 Oximetry 04/12/19 04/12/19 12:50 13:01 Temperature 98.5 F Pulse Rate 85 86 Pulse Rate [ From Monitor] Respiratory Rate Blood Pressure 103/44 112/51 Blood Pressure [Right] O2 Sat by Pulse Oximetry General appearance: Present: no acute distress - EENT Eyes: PERRL, EOM intact ENT: hearing intact - Respiratory Respiratory effort: normal - Gastrointestinal General gastrointestinal: Present: soft, non-distended - Labs CBC & Chem 7: 04/12/19 07:56 04/11/19 05:05 Labs: Abnormal lab results 04/10/19 04/12/19 Range/Units 18:12 07:56 RBC 2.09 L (3.65-5.03) M/mm3 Hgb 6.1 L (11.8-15.2) gm/dl Hct 18.5 L* (35.5-45.6) % RDW 17.3 H (13.2-15.2) % Plt Count 112 L (140-440) K/mm3 Crossmatch See Detail Medications & Allergies - Medications Allergies/Adverse Reactions: Allergies atorvastatin calcium [From Lipitor] Allergy (Mild, Verified 11/20/17 13:39) Unknown ACHES ciprofloxacin [From Cipro] Allergy (Mild, Verified 11/20/17 13:39) Bleeding NOSE BLEED ciprofloxacin HCl [From Cipro] Allergy (Mild, Verified 11/20/17 13:39) Bleeding NOSE BLEED simvastatin Allergy (Mild, Verified 11/20/17 13:39) Unknown ACHES Home Medications: Home Medications Medication Instructions Recorded Confirmed Last Taken Type Albuterol Sulfate [Proair 90 mcg IH QID PRN 08/28/18 04/10/19 08/26/18 History Respiclick] Aspirin [Aspirin BABY CHEW TAB] 81 mg PO QDAY 08/28/18 04/10/19 08/26/18 History Lanthanum Carbonate [Fosrenol] 2,000 mg PO TID 08/28/18 04/10/19 08/26/18 History NIFEdipine [Adalat cc] 60 mg PO BID 08/28/18 04/10/19 08/26/18 History Rosuvastatin Calcium [Crestor] 5 mg PO DAILY 08/28/18 04/10/19 08/26/18 History Sodium Bicarbonate 650 mg PO BID 08/28/18 04/10/19 08/26/18 History Terazosin HCl 10 mg PO HS 08/28/18 04/10/19 08/26/18 History Tiotropium [Spiriva] 2 puff DAILY 08/28/18 04/10/19 08/26/18 History Amiodarone HCl [Amiodarone 100 MG 100 mg PO DAILY 04/10/19 04/10/19 Unknown History TAB] Apixaban [Eliquis] 5 mg PO Q12H 04/10/19 04/10/19 Unknown History Metoprolol Xl [Metoprolol 50 mg PO DAILY 04/10/19 04/10/19 Unknown History SUCCINATE ER TAB] Active Medications: Generic Name Dose Route Start Last Admin Trade Name Freq PRN Reason Stop Dose Admin Acetaminophen 650 mg 04/10/19 20:29 04/11/19 21:29 Tylenol PO 650 mg Q4H PRN Administration Pain MILD(1-3)/Fever >100.5/STOLL Albuterol 2.5 mg 04/10/19 20:29 Proventil IH Q3HRT PRN Shortness Of Breath Allopurinol 100 mg 04/11/19 10:00 04/12/19 09:29 Zyloprim PO Not Given QDAY DARNELL Budesonide 0.5 mg 04/10/19 20:30 04/12/19 08:56 Pulmicort IH Not Given Q12HRT DARNELL Docusate Sodium 100 mg 04/10/19 22:00 04/12/19 09:27 Colace PO 100 mg BID DARNELL Administration Ferrous Sulfate 325 mg 04/11/19 08:00 04/12/19 09:27 Feosol PO 325 mg TID DARNELL Administration Sodium Chloride 100 mls @ 999 mls/hr 04/11/19 10:05 Nacl 0.9% IV LIZANDRO PRN Hypotension in HD Ipratropium [place] 0.5 mg 04/11/19 20:00 04/12/19 08:56 Atrovent IH Not Given BIDRT [facility] Lanthanum Carbonate 2,000 mg 04/11/19 08:00 04/12/19 09:27 Fosrenol PO 2,000 mg TIDWM DARNELL Administration Ondansetron HCl 4 mg 04/10/19 20:29 04/12/19 09:28 Zofran IV 4 mg Q8H PRN Administration Nausea And Vomiting Pantoprazole Sodium 40 mg 04/11/19 14:00 04/12/19 09:28 Protonix IV 40 mg BID DARNELL Administration Pravastatin Sodium 40 mg 04/11/19 22:00 04/11/19 21:27 Pravachol PO 40 mg QHS DARNELL Administration Sodium Chloride 10 ml 04/10/19 22:00 04/12/19 09:28 Sodium Chloride Flush Syringe 10 Ml IV 10 ml BID DARNELL Administration Sodium Chloride 10 ml 04/10/19 20:29 Sodium Chloride Flush Syringe 10 Ml IV PRN PRN LINE FLUSH
[2019-04-12] MEDS ORDERED: NACL 0.9% 100 ML IV PRN (17:12)
[2019-04-12] MEDS: TYLENOL PO PRN (20:09)
[2019-04-12] MEDS: PRAVACHOL PO SCH (21:02)
[2019-04-12] MEDS ORDERED: REGLAN IV PRN (23:21)
[2019-04-12] MEDS: REGLAN IV PRN (23:38)
--- NOTE | 2019-04-12 23:41 | Event Note ---
Date: 04/12/19 Approximately 2310 code Met was called. Pt's primary nurse entered pt's room and found him to be diaphoretic, leaning over the side of bed with small amount of clear emesis x1. The nurse stated that pt experienced near syncopal episode. Both pt and nurse confirmed there was no loss of consciousness. Pt is A&O x4 with saturation of 94% on 2LNC and SBP in 120's. He denies headache and chest pain. Ordered Cardiac enzymes, BMP, CBC, and IV Reglan. Pt has ESRD on HD //. He was admitted for anemia with presenting Hgb of 5.6. During the course of this admission he has received a total of 6u PRBC to date. He has history of pylops and anemia. He is scheduled for EGD in am. He is being followed by Hematology, GI, and Nephrology.
[2019-04-13 00:12] LABS: Calcium 7.6 mg/dL (8.4-10.2)
[2019-04-13 00:14] LABS: Creatine Kinase MB 3.3 ng/mL (0.0-4.0)
[2019-04-13 00:48] LABS: Mean Corpuscular HGB Conc 36 % (32-34); Mean Corpuscular Volume 87 fl (84-94); Platelet Count 100 K/mm3 (140-440); Red Blood Count 1.82 M/mm3 (3.65-5.03); Red Cell Distribution Width 16.1 % (13.2-15.2)
[2019-04-13 00:54] LABS: Hematocrit 15.9 % (35.5-45.6); Hemoglobin 5.7 gm/dl (11.8-15.2)
[2019-04-13] MEDS ORDERED: NACL 0.9% 500 ML 500 ML IV ONE (01:28)
[2019-04-13 06:20] LABS: Mean Corpuscular HGB Conc 35 % (32-34); Mean Corpuscular Volume 86 fl (84-94); Platelet Count 104 K/mm3 (140-440); Red Blood Count 1.65 M/mm3 (3.65-5.03); Red Cell Distribution Width 15.9 % (13.2-15.2)
[2019-04-13 06:30] LABS: Hematocrit 14.2 % (35.5-45.6); Hemoglobin 4.9 gm/dl (11.8-15.2)
[2019-04-13 06:42] LABS: Calcium 7.2 mg/dL (8.4-10.2)
[2019-04-13] MEDS ORDERED: NACL 0.9% 500 ML 500 ML IV NR (06:48)
--- NOTE | 2019-04-13 08:04 | Progress Note ---
Assessment and Plan Assessment and plan: Patient is 78-year-old -[place] male with history of COPD, coronary artery disease status post stent 3, paroxysmal atrial fibruiillation, was on Eliquis, hyperlipidemia, ESRD on hemodialysis M/W/F, and hypertension. He presented to Emergency Department with complaints of hypotension and generalized weakness. Patient was found to be profoundly anemic with hemoglobin of 5.6. He was hypotensive with blood pressure of 87/43. He was given iv fluids admitted. He was initially transfused 2 Units PRBC, remained anemic, transfused additional 2 Units. After 4 Units Hgb only 4.9 so ordered 3 units PRBC today 04/13. He is followed by GI and Nephrology. GI Physician had planned for EGD today. Last night code met called for syncope and he also had another syncope episode during dialysis. Also Troponin slightly elevated, Cardiology consulted, he was started on Amiodrone. Patient is critical, will transfer to ICU. Acute on chronic anemia due to acute GI bleed Acute GI bleed - For EGD today Hypotension ESRD on HD M/W/F Debility HLD COPD CAD s/p coronary stent 3 History of hypertension History of gout Syncope overnight, and syncope during dialysis today 04/13 Elevated Troponin-cardiology consulted Paroxysmal Atrial fibrillation - was on Coumadin, changed to Eliquis recently, now on hold NSTEMI type 2 - cardiology following Elevated Troponin from NSTEMI type 2 Plan: Continue supportive care Monitor Hgb; transfuse PRN Received 4 Units PRBC, but Hgb only 4.9 today. he denies vomiting blood. black stools yesterday X 1. Will transfuse 3 Units PRBC today, recheck CT Abd done -no retroperitoneal bleed Hematology consulted, following Nephrology following Hold Aspirin because of bleed Hold Eliquis because of GI bleed Consulted and discussed with Dr. Mccarthy - For EGD today Pravastatin 40mg at bedtime Scheduled Pulmicort; albuterol when necessary Monitor BP Hold antihypertensive medication for now Patient prognosis guarded. Transfer to ICU. History Interval history: Patient presented initially with dizziness, near syncope. Dark stools for 1 week Rapid response last night for syncope Syncope again while in dialysis today Hospitalist Physical - Physical exam Narrative exam: Gen: Not in acute distress, lying in bed, obese HEENT: Normocephalic, atraumatic Neck: supple, no JVD Heart: S1 and S2 reg, no murmurs, rubs or gallop Lungs: Clear, no crackles, no wheeze Abd: soft, non tender, non distended, normal BS Ext: No edema, no clubbing, no cyanosis, Neuro: Awake,alert, oriented x 3, moves all ext, non focal Psych:Normal mood - Constitutional Vitals: Temp Pulse Resp BP Pulse Ox 97.8 F 93 H 18 87/42 100 04/13/19 04:33 04/13/19 04:33 04/13/19 04:33 04/13/19 04:33 04/13/19 04:33 General appearance: Present: no acute distress Results - Labs CBC & Chem 7: 04/14/19 01:39 04/13/19 05:58 Labs: Laboratory Last Values WBC 6.3 K/mm3 (4.5-11.0) 04/13/19 05:58 RBC 1.65 M/mm3 (3.65-5.03) L 04/13/19 05:58 Hgb 4.9 gm/dl (11.8-15.2) L* 04/13/19 05:58 Hct 14.2 % (35.5-45.6) L* 04/13/19 05:58 MCV 86 fl (84-94) 04/13/19 05:58 MCH 30 pg (28-32) 04/13/19 05:58 MCHC 35 % (32-34) H 04/13/19 05:58 RDW 15.9 % (13.2-15.2) H 04/13/19 05:58 Plt Count 104 K/mm3 (140-440) L 04/13/19 05:58 Lymph % (Auto) Audio Narrator 04/13/19 00:37 [place] % (Auto) Audio Narrator 04/13/19 00:37 Eos % (Auto) Audio Narrator 04/13/19 00:37 Baso % (Auto) Audio Narrator 04/13/19 00:37 Lymph # Audio Narrator 04/13/19 00:37 [place] # Audio Narrator 04/13/19 00:37 Eos # Audio Narrator 04/13/19 00:37 Baso # Audio Narrator 04/13/19 00:37 Seg Neutrophils % Audio Narrator 04/13/19 00:37 Seg Neutrophils # Audio Narrator 04/13/19 00:37 PT 17.9 Sec. (12.2-14.9) H 04/10/19 21:02 INR 1.38 (0.87-1.13) H 04/10/19 21:02 Sodium 139 mmol/L (137-145) 04/13/19 05:58 Potassium 4.4 mmol/L (3.6-5.0) 04/13/19 05:58 Chloride 98.6 mmol/L (98-107) 04/13/19 05:58 Carbon Dioxide 21 mmol/L (22-30) L 04/13/19 05:58 24 mmol/L 04/13/19 05:58 BUN 148 mg/dL (9-20) H 04/13/19 05:58 9.4 mg/dL (0.8-1.5) H 04/13/19 05:58 Estimated GFR 7 ml/min 04/13/19 05:58 16 % 04/13/19 05:58 Glucose 121 mg/dL (75-100) H 04/13/19 05:58 POC Glucose 141 (70-105) H 04/12/19 23:16 Lactic Acid 1.50 mmol/L (0.7-2.0) 04/10/19 17:29 Calcium 7.2 mg/dL (8.4-10.2) L 04/13/19 05:58 Iron 62 ug/dL (49-181) 04/10/19 20:43 Iron 63 ug/dL (49-181) 04/10/19 20:43 TIBC 168 mcg/dL (250-450) L 04/10/19 20:43 TIBC 176 mcg/dL (250-450) L 04/10/19 20:43 % Saturation 37.50 % 04/10/19 20:43 154 mg/dl (180-329) L 04/10/19 20:43 855.7 ng/mL (13.0-400.0) H 04/11/19 10:43 < 0.20 mg/dL (0.1-1.2) 04/10/19 17:29 AST 11 units/L (5-40) 04/10/19 17:29 ALT 11 units/L (7-56) 04/10/19 17:29 33 units/L (35-129) L 04/10/19 17:29 106 units/L (55-170) 04/12/19 23:39 CK-MB (CK-2) 3.3 ng/mL (0.0-4.0) 04/12/19 23:39 CK-MB (CK-2) Rel Index 3.1 (0-4) 04/12/19 23:39 0.120 ng/mL (0.00-0.029) H* 04/13/19 05:58 5.6 g/dL (6.3-8.2) L 04/10/19 17:29 3.0 g/dL (3.9-5) L 04/10/19 17:29 1.2 % 04/10/19 17:29 Triglycerides 307 mg/dL (2-149) H 04/10/19 17:29 Cholesterol 135 mg/dL (50-199) 04/10/19 17:29 64 mg/dL (50-130) 04/10/19 17:29 29 mg/dL (40-59) L 04/10/19 17:29 4.65 % 04/10/19 17:29 Vitamin B12 298.4 pg/mL (211-911) 04/10/19 20:43 Hepatitis A IgM Ab Non-reactive (NonReactive) 04/11/19 18:11 Hep Bs Antigen Non-reactive (Negative) 04/11/19 18:11 Hep B Core IgM Ab Non-reactive (NonReactive) 04/11/19 18:11 Non-reactive (NonReactive) 04/11/19 18:11 Blood Type A POSITIVE 04/10/19 18:12 Antibody Screen Negative 04/10/19 18:12 Crossmatch See Detail 04/10/19 18:12 Active Medications - Current Medications Current Medications: Generic Name Dose Route Start Last Admin Trade Name Freq PRN Reason Stop Dose Admin Acetaminophen 650 mg 04/10/19 20:29 04/12/19 20:09 Tylenol PO 650 mg Q4H PRN Administration Pain MILD(1-3)/Fever >100.5/STOLL Albuterol 2.5 mg 04/10/19 20:29 Proventil IH Q3HRT PRN Shortness Of Breath Allopurinol 100 mg 04/11/19 10:00 04/12/19 09:29 Zyloprim PO Not Given QDAY DARNELL Budesonide 0.5 mg 04/10/19 20:30 04/12/19 21:30 Pulmicort IH 0.5 mg Q12HRT DARNELL Administration Docusate Sodium 100 mg 04/10/19 22:00 04/12/19 21:02 Colace PO 100 mg BID DARNELL Administration Ferrous Sulfate 325 mg 04/11/19 08:00 04/12/19 20:10 Feosol PO 325 mg TID DARNELL Administration Sodium Chloride 100 mls @ 999 mls/hr 04/11/19 10:05 Nacl 0.9% IV LIZANDRO PRN Hypotension in HD Sodium Chloride 100 mls @ 999 mls/hr 04/12/19 17:12 Nacl 0.9% IV LIZANDRO PRN Hypotension Sodium Chloride 500 mls @ 0 mls/hr 04/13/19 06:48 Nacl 0.9% 500 Ml IV 04/13/19 12:00 ONCE NR As Directed Ipratropium [place] 0.5 mg 04/11/19 20:00 04/12/19 21:31 Atrovent IH 0.5 mg BIDRT DARNELL Administration Lanthanum Carbonate 2,000 mg 04/11/19 08:00 04/12/19 17:16 Fosrenol PO Not Given TIDWM [facility] [place] Metoclopramide HCl 5 mg 04/12/19 23:26 04/12/19 23:38 Reglan IV 5 mg Q6H PRN Administration Nausea And Vomiting Ondansetron HCl 4 mg 04/10/19 20:29 04/12/19 09:28 Zofran IV 4 mg Q8H PRN Administration Nausea And Vomiting Pantoprazole Sodium 40 mg 04/11/19 14:00 04/12/19 21:02 Protonix IV 40 mg BID DARNELL Administration Pravastatin Sodium 40 mg 04/11/19 22:00 04/12/19 21:02 Pravachol PO 40 mg QHS DARNELL Administration Sodium Chloride 10 ml 04/10/19 22:00 04/12/19 22:02 Sodium Chloride Flush Syringe 10 Ml IV 10 ml BID DARNELL Administration Sodium Chloride 10 ml 04/10/19 20:29 Sodium Chloride Flush Syringe 10 Ml IV PRN PRN LINE FLUSH
--- NOTE | 2019-04-13 08:14 | Event Note ---
Date: 04/12/19 [id number].
--- NOTE | 2019-04-13 08:21 | Hem/Onc Progress Note ---
Assessment and Plan 1. Normocytic anemia, history of dark stools, GI consultation. 2. Anemia, may be multifactorial. The patient's anemia and end-stage renal disease, he will also get iron and erythropoietin support with dialysis. 3. Thrombocytopenia, likely secondary to consumption. 4. The patient was on anticoagulation with Eliquis and also was on aspirin for cardiac issues. 5. History of hyperlipidemia. 6. History of chronic obstructive pulmonary disease. 7. History of coronary artery disease. 8. History of end-stage renal disease, on dialysis. 9. History of hypertension. 10. History of gout. 11. Transfusion support. 12. Deficiency investigation. I will follow the patient during inpatient stay Serum iron is 63. Ferritin is 855, B12 is 298. Folate is 10. /10- GI ix - Patient Problems (1) Anemia Current Visit: Yes Status: Acute Qualifiers: Anemia type: unspecified type Qualified Code(s): D64.9 - Anemia, unspecified Subjective Date of service: 04/13/19 Principal diagnosis: anemia Interval history: due GI Ix Objective - Constitutional Vitals: Last Vital Signs Temp 97.8 F 04/13/19 04:33 Pulse 93 H 04/13/19 04:33 Resp 18 04/13/19 04:33 BP 87/42 04/13/19 04:33 Pulse Ox 100 04/13/19 04:33 Pain Intensity (0-10): denies any pain General appearance: no acute distress Performance status: 3-limited selfcare - EENT Eyes: EOM intact ENT: hearing intact Lymph node exam: negative cervical - Neck Neck: normal ROM - Respiratory Respiratory effort: Positive: normal Respiratory: bilateral: CTA (anteriorly) - Cardiovascular Heart Sounds: Present: S1 & S2 Extremities: normal temperature - Gastrointestinal General gastrointestinal: Present: soft, non-tender Rectal Exam: deferred - Genitourinary Male genitourinary: Present: deferred - Integumentary Integumentary: warm - Musculoskeletal Musculoskeletal: strength equal bilaterally, generalized weakness - Neurologic Neurologic: moves all extremities - Labs Lab Results: Laboratory Results - last 24 hr 04/10/19 04/11/19 04/12/19 18:12 18:11 07:56 WBC 8.0 RBC 2.09 L Hgb 6.1 L Hct 18.5 L* MCV 89 MCH 29 MCHC 33 RDW 17.3 H Plt Count 112 L Lymph % (Auto) [place] % (Auto) Eos % (Auto) Baso % (Auto) Lymph # [place] # Eos # Baso # Seg Neutrophils % Seg Neutrophils # Sodium Potassium Chloride Carbon Dioxide Anion Gap BUN Creatinine Estimated GFR BUN/Creatinine Ratio Glucose POC Glucose Calcium Total Creatine Kinase CK-MB (CK-2) CK-MB (CK-2) Rel Index Troponin T Hepatitis A IgM Ab Non-reactive Hep Bs Antigen Non-reactive Hep B Core IgM Ab Non-reactive Hepatitis C Antibody Non-reactive Blood Type A POSITIVE Antibody Screen Negative Crossmatch See Detail 04/12/19 04/12/19 04/12/19 23:16 23:39 23:39 WBC RBC Hgb Hct MCV MCH MCHC RDW Plt Count Lymph % (Auto) [place] % (Auto) Eos % (Auto) Baso % (Auto) Lymph # [place] # Eos # Baso # Seg Neutrophils % Seg Neutrophils # Sodium 137 Potassium 4.6 Chloride 99.0 Carbon Dioxide 21 L Anion Gap 22 BUN 132 H Creatinine 8.0 H Estimated GFR 8 BUN/Creatinine Ratio 17 Glucose 112 H POC Glucose 141 H Calcium 7.6 L Total Creatine Kinase 106 CK-MB (CK-2) 3.3 CK-MB (CK-2) Rel Index 3.1 Troponin T 0.119 H* D Hepatitis A IgM Ab Hep Bs Antigen Hep B Core IgM Ab Hepatitis C Antibody Blood Type Antibody Screen Crossmatch 04/13/19 04/13/19 04/13/19 00:37 05:58 05:58 WBC 7.4 6.3 RBC 1.82 L 1.65 L Hgb 5.7 L* 4.9 L* Hct 15.9 L* 14.2 L* MCV 87 86 MCH 31 30 MCHC 36 H 35 H RDW 16.1 H 15.9 H Plt Count 100 L 104 L Lymph % (Auto) [employer] [place] % (Auto) [employer] Eos % (Auto) [employer] Baso % (Auto) [employer] Teacher Lymph # [employer] Teacher [place] # [employer] Teacher Eos # [employer] Teacher Baso # [employer] Teacher Seg Neutrophils % [employer] Teacher Seg Neutrophils # [employer] Teacher Sodium 139 Potassium 4.4 Chloride 98.6 Carbon Dioxide 21 L Anion Gap 24 BUN 148 H Creatinine 9.4 H Estimated GFR 7 BUN/Creatinine Ratio 16 Glucose 121 H POC Glucose Calcium 7.2 L Total Creatine Kinase CK-MB (CK-2) CK-MB (CK-2) Rel Index Troponin T Hepatitis A IgM Ab Hep Bs Antigen Hep B Core IgM Ab Hepatitis C Antibody Blood Type Antibody Screen Crossmatch 04/13/19 05:58 WBC RBC Hgb Hct MCV MCH MCHC RDW Plt Count Lymph % (Auto) [place] % (Auto) Eos % (Auto) Baso % (Auto) Lymph # [place] # Eos # Baso # Seg Neutrophils % Seg Neutrophils # Sodium Potassium Chloride Carbon Dioxide Anion Gap BUN Creatinine Estimated GFR BUN/Creatinine Ratio Glucose POC Glucose Calcium Total Creatine Kinase CK-MB (CK-2) CK-MB (CK-2) Rel Index Troponin T 0.120 H* Hepatitis A IgM Ab Hep Bs Antigen Hep B Core IgM Ab Hepatitis C Antibody Blood Type Antibody Screen Crossmatch Medications & Allergies - Medications Allergies/Adverse Reactions: Allergies atorvastatin calcium [From Lipitor] Allergy (Mild, Verified 11/20/17 13:39) Unknown ACHES ciprofloxacin [From Cipro] Allergy (Mild, Verified 11/20/17 13:39) Bleeding NOSE BLEED ciprofloxacin HCl [From Cipro] Allergy (Mild, Verified 11/20/17 13:39) Bleeding NOSE BLEED simvastatin Allergy (Mild, Verified 11/20/17 13:39) Unknown ACHES Home Medications: Home Medications Medication Instructions Recorded Confirmed Last Taken Type Albuterol Sulfate [Proair 90 mcg IH QID PRN 08/28/18 04/10/19 08/26/18 History Respiclick] Aspirin [Aspirin BABY CHEW TAB] 81 mg PO QDAY 08/28/18 04/10/19 08/26/18 History Lanthanum Carbonate [Fosrenol] 2,000 mg PO TID 08/28/18 04/10/19 08/26/18 History NIFEdipine [Adalat cc] 60 mg PO BID 08/28/18 04/10/19 08/26/18 History Rosuvastatin Calcium [Crestor] 5 mg PO DAILY 08/28/18 04/10/19 08/26/18 History Sodium Bicarbonate 650 mg PO BID 08/28/18 04/10/19 08/26/18 History Terazosin HCl 10 mg PO HS 08/28/18 04/10/19 08/26/18 History Tiotropium [Spiriva] 2 puff DAILY 08/28/18 04/10/19 08/26/18 History Amiodarone HCl [Amiodarone 100 MG 100 mg PO DAILY 04/10/19 04/10/19 Unknown History TAB] Apixaban [Eliquis] 5 mg PO Q12H 04/10/19 04/10/19 Unknown History Metoprolol Xl [Metoprolol 50 mg PO DAILY 04/10/19 04/10/19 Unknown History SUCCINATE ER TAB] Active Medications: Generic Name Dose Route Start Last Admin Trade Name Freq PRN Reason Stop Dose Admin Acetaminophen 650 mg 04/10/19 20:29 04/12/19 20:09 Tylenol PO 650 mg Q4H PRN Administration Pain MILD(1-3)/Fever >100.5/STOLL Albuterol 2.5 mg 04/10/19 20:29 Proventil IH Q3HRT PRN Shortness Of Breath Allopurinol 100 mg 04/11/19 10:00 04/12/19 09:29 Zyloprim PO Not Given QDAY DARNELL Budesonide 0.5 mg 04/10/19 20:30 04/12/19 21:30 Pulmicort IH 0.5 mg Q12HRT DARNELL Administration Docusate Sodium 100 mg 04/10/19 22:00 04/12/19 21:02 Colace PO 100 mg BID DARNELL Administration Ferrous Sulfate 325 mg 04/11/19 08:00 04/12/19 20:10 Feosol PO 325 mg TID DARNELL Administration Sodium Chloride 100 mls @ 999 mls/hr 04/11/19 10:05 Nacl 0.9% IV LIZANDRO PRN Hypotension in HD Sodium Chloride 100 mls @ 999 mls/hr 04/12/19 17:12 Nacl 0.9% IV LIZANDRO PRN Hypotension Sodium Chloride 500 mls @ 0 mls/hr 04/13/19 06:48 Nacl 0.9% 500 Ml IV 04/13/19 12:00 ONCE NR As Directed Ipratropium [place] 0.5 mg 04/11/19 20:00 04/12/19 21:31 Atrovent IH 0.5 mg BIDRT DARNELL Administration Lanthanum Carbonate 2,000 mg 04/11/19 08:00 04/12/19 17:16 Fosrenol PO Not Given TIDWM DARNELL Metoclopramide HCl 5 mg 04/12/19 23:26 04/12/19 23:38 Reglan IV 5 mg Q6H PRN Administration Nausea And Vomiting Ondansetron HCl 4 mg 04/10/19 20:29 04/12/19 09:28 Zofran IV 4 mg Q8H PRN Administration Nausea And Vomiting Pantoprazole Sodium 40 mg 04/11/19 14:00 04/12/19 21:02 Protonix IV 40 mg BID DARNELL Administration Pravastatin Sodium 40 mg 04/11/19 22:00 04/12/19 21:02 Pravachol PO 40 mg QHS DARNELL Administration Sodium Chloride 10 ml 04/10/19 22:00 04/12/19 22:02 Sodium Chloride Flush Syringe 10 Ml IV 10 ml BID DARNELL Administration Sodium Chloride 10 ml 04/10/19 20:29 Sodium Chloride Flush Syringe 10 Ml IV PRN PRN LINE FLUSH
[2019-04-13] MEDS: ATROVENT IH SCH ×2 (08:32→21:19)
[2019-04-13] MEDS: PULMICORT IH SCH ×2 (08:32→21:19)
[2019-04-13] MEDS ORDERED: WATER FOR IRRIG STERILE IR ONE (09:03)
--- NOTE | 2019-04-13 09:54 | Progress Note ---
Subjective Interval history: Patient was seen today for follow-up on multiple renal related issues Events of this hospitalization noted Patient denies having any chest pain pressure or shortness of breath Vitals labs intake output medications were reviewed Social history: Reviewed Allergies: Reviewed Family history: Reviewed Physical examination HEENT: Oral mucosa moist no pallor or icterus Neck: Supple no JVD Chest: Clear to auscultation anteriorly CVS: Regular rate and rhythm S1 and S2 heard Abdomen: Soft nontender no suprapubic masses no organomegaly appreciable Extremity: Dry skin less than 1+ peripheral edema Musculoskeletal: No joint effusion noted in knees and ankle Neurological: Alert awake Dermatology: No petechial rashes Psychiatry: No evidence of any agitation and aggression noted Assessment and plan; End-stage renal disease: Patient will continue with hemodialysis on Saturday and Saturday schedule judicious ultrafiltration with hemodialysis, change dialysis prescription to 350 blood flow 700 dialysate flow rate Anemia in end-stage renal disease: Monitor hemoglobin and hematocrit, erythropoietin as needed , currently being followed by hematology oncology anemia was also partly related to acute blood loss due to GI bleeding Admission hemoglobin was 5.6, discontinue Fosrenol due to GI toxicity discontin ue iron tablet Patient is currently undergoing GI workup Patient admitted with hypotension does have history of hypertension as well Secondary hyperparathyroidism periodically check phosphorus and PTH level, goal phosphorus less than 5.5 PTH less than 600, educated about renal osteodystrophy Hypertension and volume: , Adjust medications as needed, ultrafiltration as tolerated keep systolic blood pressure above 100 Malnutrition risk: High please consider high protein diet as well as nutrition f ollow-up, patient needs at least 1.5 g protein per KG body weight Dialysis access: Currently working well, discussed about monitoring Dietary counseling and education: Done at length to improve outcome with end- stage renal disease Patient was also educated about the hospital related comorbidities Multiple health issues including coronary artery disease status post stent placement, hyperlipidemia, COPD, gout, paroxysmal atrial fibrillation, Overall prognosis appears to be guarded due to end-stage renal disease, dialysis status and other comorbidities Patient was adequately counseled and educated regarding multiple renal related issues Pertinent lab findings were discussed with patient and patient does exhibit good understanding of renal issues. We'll continue to follow and make recommendation from renal standpoint Objective - Vital Signs Vital signs: Vital Signs - 12hr 04/13/19 04/13/19 04/13/19 02:00 04:33 07:59 Temperature 97.8 F 98.1 F Pulse Rate 94 H 93 H Respiratory 18 18 Rate Blood Pressure 87/42 91/40 O2 Sat by Pulse 100 Oximetry 04/13/19 08:46 Temperature Pulse Rate Respiratory 16 Rate Blood Pressure 123/58 O2 Sat by Pulse Oximetry - Lab 04/13/19 05:58 04/13/19 05:58 Most recent lab results Calcium 7.2 mg/dL (8.4-10.2) L 04/13/19 05:58 Medications & Allergies - Medications Allergies/Adverse Reactions: Allergies atorvastatin calcium [From Lipitor] Allergy (Mild, Verified 11/20/17 13:39) Unknown ACHES ciprofloxacin [From Cipro] Allergy (Mild, Verified 11/20/17 13:39) Bleeding NOSE BLEED ciprofloxacin HCl [From Cipro] Allergy (Mild, Verified 11/20/17 13:39) Bleeding NOSE BLEED simvastatin Allergy (Mild, Verified 11/20/17 13:39) Unknown ACHES Home Medications: Home Medications Medication Instructions Recorded Confirmed Last Taken Type Albuterol Sulfate [Proair 90 mcg IH QID PRN 08/28/18 04/10/19 08/26/18 History Respiclick] Aspirin [Aspirin BABY CHEW TAB] 81 mg PO QDAY 08/28/18 04/10/19 08/26/18 History Lanthanum Carbonate [Fosrenol] 2,000 mg PO TID 08/28/18 04/10/19 08/26/18 History NIFEdipine [Adalat cc] 60 mg PO BID 08/28/18 04/10/19 08/26/18 History Rosuvastatin Calcium [Crestor] 5 mg PO DAILY 08/28/18 04/10/19 08/26/18 History Sodium Bicarbonate 650 mg PO BID 08/28/18 04/10/19 08/26/18 History Terazosin HCl 10 mg PO HS 08/28/18 04/10/19 08/26/18 History Tiotropium [Spiriva] 2 puff DAILY 08/28/18 04/10/19 08/26/18 History Amiodarone HCl [Amiodarone 100 MG 100 mg PO DAILY 04/10/19 04/10/19 Unknown History TAB] Apixaban [Eliquis] 5 mg PO Q12H 04/10/19 04/10/19 Unknown History Metoprolol Xl [Metoprolol 50 mg PO DAILY 04/10/19 04/10/19 Unknown History SUCCINATE ER TAB] Active Medications: Generic Name Dose Route Start Last Admin Trade Name Freq PRN Reason Stop Dose Admin Acetaminophen 650 mg 04/10/19 20:29 04/12/19 20:09 Tylenol PO 650 mg Q4H PRN Administration Pain MILD(1-3)/Fever >100.5/STOLL Albuterol 2.5 mg 04/10/19 20:29 Proventil IH Q3HRT PRN Shortness Of Breath Allopurinol 100 mg 04/11/19 10:00 04/12/19 09:29 Zyloprim PO Not Given QDAY DARNELL Budesonide 0.5 mg 04/10/19 20:30 04/13/19 08:32 Pulmicort IH 0.5 mg Q12HRT DARNELL Administration Docusate Sodium 100 mg 04/10/19 22:00 04/12/19 21:02 Colace PO 100 mg BID DARNELL Administration Ferrous Sulfate 325 mg 04/11/19 08:00 04/12/19 20:10 Feosol PO 325 mg TID DARNELL Administration Sodium Chloride 100 mls @ 999 mls/hr 04/11/19 10:05 Nacl 0.9% IV LIZANDRO PRN Hypotension in HD Sodium Chloride 100 mls @ 999 mls/hr 04/12/19 17:12 Nacl 0.9% IV LIZANDRO PRN Hypotension Sodium Chloride 500 mls @ 0 mls/hr 04/13/19 06:48 Nacl 0.9% 500 Ml IV 04/13/19 12:00 ONCE NR As Directed Ipratropium [place] 0.5 mg 04/11/19 20:00 04/13/19 08:32 Atrovent IH 0.5 mg BIDRT DARNELL Administration Lanthanum Carbonate 2,000 mg 04/11/19 08:00 04/12/19 17:16 Fosrenol PO Not Given TIDWM [facility] Metoclopramide HCl 5 mg 04/12/19 23:26 04/12/19 23:38 Reglan IV 5 mg Q6H PRN Administration Nausea And Vomiting Ondansetron HCl 4 mg 04/10/19 20:29 04/12/19 09:28 Zofran IV 4 mg Q8H PRN Administration Nausea And Vomiting Pantoprazole Sodium 40 mg 04/11/19 14:00 04/12/19 21:02 Protonix IV 40 mg BID DARNELL Administration Pravastatin Sodium 40 mg 04/11/19 22:00 04/12/19 21:02 Pravachol PO 40 mg QHS DARNELL Administration Sodium Chloride 10 ml 04/10/19 22:00 04/12/19 22:02 Sodium Chloride Flush Syringe 10 Ml IV 10 ml BID DARNELL Administration Sodium Chloride 10 ml 04/10/19 20:29 Sodium Chloride Flush Syringe 10 Ml IV PRN PRN LINE FLUSH
[2019-04-13] MEDS: PROTONIX IV SCH ×2 (10:13→22:32)
[2019-04-13] MEDS: COLACE PO SCH ×2 (10:14→22:32)
[2019-04-13] MEDS: ZYLOPRIM PO SCH (10:15)
[2019-04-13] MEDS ORDERED: CORDARONE 150 MG in D5W 97 ML IV ONE (10:30)
--- NOTE | 2019-04-13 10:56 | XRay Report ---
AP CHEST: HISTORY: Short of breath Mild emphysematous changes are suspected. No evidence for pneumonia, pleural effusion or pneumothorax. Normal heart size and pulmonary vessels. No significant change since 04/10/19. IMPRESSION: Emphysematous changes. No acute process.
--- NOTE | 2019-04-13 13:17 | Consultation ---
History of Present Illness Consult date: 04/13/19 Requesting physician: MARYAM GARBER Consult reason: elevated troponin History of present illness: The pt is a 78 YO male with past medical history of CAD s/p PCI, paroxysmal atrial fibrillation, anticoagulated with Eliquis, HTN, HLP, ESRD on HD, COPD. He is followed in our office by Dr. West. He presented with complaints of hypotension noted during dialysis, generalized weakness, dyspnea on exertion and several bouts of pre-syncope for one week prior to arrival. Pt also reports tarry black stools present for approx 5 days prior to arrival. Admission H/H noted to be 5.6/16.6. Pt with suspected GI bleed and it pending endoscopy. Cardiology has been consulted for elevated troponin. Pt denies any chest pain, palpitations, n/v, diaphoresis or syncope. His Eliquis was held at admission. Echo done 05/2018 showed EF 50-55%, impaired relaxation, minimal MR, mild TR, mild MA. LHC done 08/2018 showed patent stents in the prox and mid LAD and mid distal circ, tight lesion in a fairly large marginal branch at the ostium which appears mild to mod calcified and tight. Lexiscan MPI stress done following LHC in 08/2018 to eval for ischemic burden showed no evidence of sig ischemia, ef-50%. LHC done 04/2010 with PCI of LAD. LHC done 03/2010 with PCI of LCX. Past History Past Medical History: CAD, dialysis, ESRD, heart failure, hypertension Past Surgical History: PTCA Social history: other (former smoker quit 30 years ago) Family history: no significant family history Medications and Allergies Allergies Allergy/AdvReac Type Severity Reaction Status Date / Time atorvastatin calcium Allergy Mild Unknown Verified 11/20/17 13:39 [From Lipitor] ciprofloxacin [From Cipro] Allergy Mild Bleeding Verified 11/20/17 13:39 ciprofloxacin HCl Allergy Mild Bleeding Verified 11/20/17 13:39 [From Cipro] simvastatin Allergy Mild Unknown Verified 11/20/17 13:39 Home Medications Medication Instructions Recorded Confirmed Last Taken Type Albuterol Sulfate [Proair 90 mcg IH QID PRN 08/28/18 04/10/19 08/26/18 History Respiclick] Aspirin [Aspirin BABY CHEW TAB] 81 mg PO QDAY 08/28/18 04/10/19 08/26/18 History Lanthanum Carbonate [Fosrenol] 2,000 mg PO TID 08/28/18 04/10/19 08/26/18 Hi story NIFEdipine [Adalat cc] 60 mg PO BID 08/28/18 04/10/19 08/26/18 History Rosuvastatin Calcium [Crestor] 5 mg PO DAILY 08/28/18 04/10/19 08/26/18 History Sodium Bicarbonate 650 mg PO BID 08/28/18 04/10/19 08/26/18 History Terazosin HCl 10 mg PO HS 08/28/18 04/10/19 08/26/18 History Tiotropium [Spiriva] 2 puff DAILY 08/28/18 04/10/19 08/26/18 History Amiodarone HCl [Amiodarone 100 MG 100 mg PO DAILY 04/10/19 04/10/19 Unknown History TAB] Apixaban [Eliquis] 5 mg PO Q12H 04/10/19 04/10/19 Unknown History Metoprolol Xl [Metoprolol 50 mg PO DAILY 04/10/19 04/10/19 Unknown History SUCCINATE ER TAB] Active Meds: Active Medications Acetaminophen (Tylenol) 650 mg PO Q4H PRN PRN Reason: Pain MILD(1-3)/Fever >100.5/STOLL Last Admin: 04/12/19 20:09 Dose: 650 mg Documented by: Albuterol (Proventil) 2.5 mg IH Q3HRT PRN PRN Reason: Shortness Of Breath Allopurinol (Zyloprim) 100 mg PO QDAY [facility] Last Admin: 04/13/19 10:15 Dose: Not Given Documented by: Budesonide (Pulmicort) 0.5 mg IH Q12HRT [facility] Last Admin: 04/13/19 08:32 Dose: 0.5 mg Documented by: Docusate Sodium (Colace) 100 mg PO BID [facility] Last Admin: 04/13/19 10:14 Dose: 100 mg Documented by: Sodium Chloride (Nacl 0.9%) 100 mls @ 999 mls/hr IV LIZANDRO PRN PRN Reason: Hypotension in HD Sodium Chloride (Nacl 0.9%) 100 mls @ 999 mls/hr IV LIZANDRO PRN PRN Reason: Hypotension Ipratropium [place] (Atrovent) 0.5 mg IH BIDRT [facility] Last Admin: 04/13/19 08:32 Dose: 0.5 mg Documented by: Metoclopramide HCl (Reglan) 5 mg IV Q6H PRN PRN Reason: Nausea And Vomiting Last Admin: 04/12/19 23:38 Dose: 5 mg Documented by: Ondansetron HCl (Zofran) 4 mg IV Q8H PRN PRN Reason: Nausea And Vomiting Last Admin: 04/12/19 09:28 Dose: 4 mg Documented by: Pantoprazole Sodium (Protonix) 40 mg IV BID [facility] Last Admin: 04/13/19 10:13 Dose: 40 mg Documented by: Pravastatin Sodium (Pravachol) 40 mg PO QHS [facility] Last Admin: 04/12/19 21:02 Dose: 40 mg Documented by: Sodium Chloride (Sodium Chloride Flush Syringe 10 Ml) 10 ml IV BID [facility] Last Admin: 04/12/19 22:02 Dose: 10 ml Documented by: Sodium Chloride (Sodium Chloride Flush Syringe 10 Ml) 10 ml IV PRN PRN PRN Reason: LINE FLUSH Review of Systems Constitutional: no weight loss, no weight gain, no fever, no chills, no sweats Ears, nose, mouth and throat: no ear pain, no nose pain, no sinus pressure, no sinus pain Cardiovascular: lightheadedness, shortness of breath, dyspnea on exertion, no chest pain, no orthopnea, no palpitations, no rapid/irregular heart beat, no edema, no syncope, no paroxysmal nocturnal dyspnea, no high blood pressure, no leg edema Respiratory: shortness of breath, dyspnea on exertion, no cough, no congestion, no wheezing, no pain on inspiration Gastrointestinal: melena, no abdominal pain, no nausea, no vomiting, no diarrhea, no constipation Genitourinary Male: no dysuria, no hematuria, no flank pain, no discharge, no urinary frequency, no urinary hesitancy Musculoskeletal: no neck stiffness, no neck pain, no shooting arm pain, no arm numbness/tingling, no low back pain, no shooting leg pain Integumentary: no rash, no pruritis, no redness, no sores, no wounds Neurological: no head injury, no paralysis, no parathesias, no numbness, no tingling, no seizures, no syncope Psychiatric: no anxiety Endocrine: no cold intolerance, no heat intolerance Allergic/Immunologic: no urticaria Physical Examination Vital Signs BP 87/43 04/10/19 17:03 General appearance: no acute distress HEENT: Positive: PERRL, Normocephaly, Mucus Membranes Moist Neck: Positive: neck supple, trachea midline Cardiac: Positive: Reg Rate and Rhythm, S1/S2 Lungs: Positive: Decreased Breath Sounds Neuro: Positive: Grossly Intact Abdomen: Negative: Tender Skin: Negative: Rash, Wound Musculoskeletal: No Pain Extremities: Absent: edema Results 04/13/19 05:58 04/13/19 05:58 Cardiac Enzymes 04/12/19 Range/Units 23:39 CK-MB (CK-2) 3.3 (0.0-4.0) ng/mL CBC 04/13/19 04/13/19 Range/Units 00:37 05:58 WBC 7.4 6.3 (4.5-11.0) K/mm3 RBC 1.82 L 1.65 L (3.65-5.03) M/mm3 Hgb 5.7 L* 4.9 L* (11.8-15.2) gm/dl Hct 15.9 L* 14.2 L* (35.5-45.6) % Plt Count 100 L 104 L (140-440) K/mm3 Lymph # Range Aide [place] # Range Aide Eos # Range Aide Baso # Range Aide Comprehensive Metabolic Panel 04/12/19 04/13/19 Range/Units 23:39 05:58 Sodium 137 139 (137-145) mmol/L Potassium 4.6 4.4 (3.6-5.0) mmol/L Chloride 99.0 98.6 (98-107) mmol/L Carbon Dioxide 21 L 21 L (22-30) mmol/L BUN 132 H 148 H (9-20) mg/dL Creatinine 8.0 H 9.4 H (0.8-1.5) mg/dL Glucose 112 H 121 H (75-100) mg/dL Calcium 7.6 L 7.2 L (8.4-10.2) mg/dL - Imaging and Cardiology Echo: report reviewed (05/2018 showed EF 50-55%, impaired relaxation, minimal MR, mild TR, mild MA. ) Cardiac cath: report reviewed (08/2018 showed patent stents in the prox and mid LAD and mid distal circ, tight lesion in a fairly large marginal branch at the ostium which appears mild to mod calcified and tight. Lexiscan MPI stress done following LHC in 08/2018 to eval for ischemic burden showed no evidence of sig ischemia, ef-50%. ) EKG: report reviewed, image reviewed EKG interpretations - Telemetry EKG Rhythm: Sinus Rhythm - EKG Sinus rhythms and dysrhythmias: sinus rhythm Assessment and Plan Pt with suspected GI bleed, symptomatic anemia, hypotension, bouts of near syncope. He is also noted to be in parox AFib with RVR. Cardiology has been consulted for elevated troponin which appears c/w NSTEMI type II, pt denies any occurrence of chest pain, ECG with NAF. Optimize HR - initiate IV amio. Pt for EGD today, cont to hold systemic AC until GI w/u is complete. PRBC per primary - would prefer Hbg ~10 to prevent demand ischemia in setting of CAD. Will follow. The patient has been seen in conjunction with Dr. Stokes who agrees with the assessment and plan of care. - Patient Problems (1) GI bleed Current Visit: Yes Status: Suspected (2) Symptomatic anemia Current Visit: Yes Status: Acute (3) Paroxysmal atrial fibrillation with RVR Current Visit: Yes Status: Chronic (4) CAD (coronary artery disease) Current Visit: Yes Status: Chronic Qualifiers: Coronary Disease-Associated Artery/Lesion type: unspecified vessel or lesion type [place] vs. transplanted heart: [place] heart Associated angina: angina presence unspecified Qualified Code(s): I25.10 - Atherosclerotic heart disease of [place] coronary artery without angina pectoris (5) Stented coronary artery Current Visit: Yes Status: Chronic (6) Hypotension Current Visit: Yes Status: Acute Qualifiers: Hypotension type: unspecified hypotension type Qualified Code(s): I95.9 - Hypotension, unspecified (7) Near syncope Current Visit: Yes Status: Acute (8) ESRD on hemodialysis Current Visit: Yes Status: Chronic (9) NSTEMI (non-ST elevation myocardial infarction) Current Visit: Yes Status: Acute Plan to address problem: type II
[2019-04-13] MEDS ORDERED: CORDARONE 900 MG in D5W 482 ML IV SCH (14:00)
--- NOTE | 2019-04-13 15:12 | Event Note ---
Date: 04/13/19 Pt vomited clear liquid, no blood last night. Had 1 melenic stool last night. Hgb this AM 4.9. Did not receive pRBC yesterday. Had transient hypotension at start of dialysis, and currently in dialysis and getting 3u pRBC. Pt o/w doing well. Will do EGD today, after dialysis.
[2019-04-13] MEDS ORDERED: DIPRIVAN 10 MG/ML IV ONE (16:28)
[2019-04-13] MEDS ORDERED: LIDOCAINE VISCOUS 2% ONE (16:30)
[2019-04-13 17:55] LABS: Hematocrit 24.2 % (35.5-45.6); Hemoglobin 8.3 gm/dl (11.8-15.2)
--- NOTE | 2019-04-13 18:18 | Anesthesia Consultation ---
Anesthesia Consult and Med Hx Date of service: 04/13/19 - Airway Anesthetic Teeth Evaluation: Poor ROM Head & Neck: Adequate Mental/Hyoid Distance: Adequate Mallampati Class: Class III Intubation Access Assessment: Possibly Difficult - Pulmonary Exam CTA: Yes - Cardiac Exam Cardiac Exam: RRR - Pre-Operative Health Status ASA Pre-Surgery Classification: ASA4 Proposed Anesthetic Plan: MAC - Pulmonary Hx Smoking: Yes (quit 30 years ago) Hx Respiratory Symptoms: No COPD: Yes Home Oxygen Therapy: No - Cardiovascular System Hx Hypertension: Yes (episodes of hypotension this admission) Hx Coronary Artery Disease: Yes Hx Heart Attack/AMI: Yes (x2; 2009) Hx Percutaneous Transluminal Coronary Angioplasty (PTCA): Yes (stent x2 2009) Hx Cardia Arrhythmia: Yes (a-fib) Hx Pacemaker: No Hx Internal Defibrillator: No - Central Nervous System CVA: No - Gastrointestinal Hx Gastroesophageal Reflux Disease: No - Endocrine Hx End Stage Renal Disease: Yes (last HD today (no UF 2/2 hypotension)) Hx Liver Disease: No Hx Insulin Dependent Diabetes: No Hx Non-Insulin Dependent Diabetes: No Hx Thyroid Disease: No - Hematic Hx Anemia: Yes (s/p multiple transfusions this admission) - Other Systems Hx Cancer: Yes Hx Obesity: Yes - Additional Comments Anesthesia Medical History Comments: No hx anesthetic complications. Presented with near syncopal episode. Found to be hypotensive, severely anemic with elevated troponin. Cardiology evaluation reveals likely NSTEMI. Neg ischemic w/u 08/2018. Now s/p multiple transfusions. Had HD today but experienced near- syncopal episode 2/2 hypotension so minimal fluid was removed. Now scheduled for EGD for possible source of anemia.
--- NOTE | 2019-04-13 18:19 | Anesthesia Day of Surgery ---
Anesthesia Day of Surgery - Day of Surgery Patient Examined: Yes Patient H&P Reviewed: Yes Patient is NPO: Yes Cardiac Clearance: Yes
--- NOTE | 2019-04-13 18:50 | Post Operative Note ---
Pre-op diagnosis: GI Bleed Post-op diagnosis: other (HH, Gastritis/Duodenitis) Findings: 1. Duodenum cannulated to 3rd portion with upper scope - Inflammatory erosions noted in small bowel - Cold bx taken 2. Few very small AVMs noted in duodenal bulb 3. Moderate erosive gastritis in antrum, as well as in hiatal hernia/cardia - Cold bx taken of antrum 4. No varices noted in stomach or esophagus Procedure: EGD with cold biopsy Anesthesia: MAC Surgeon: LUPE MILLER Estimated blood loss: minimal Pathology: list (1. Duodenal erosions (3rd portion). 2. Gastric antrum (gastritis)) Specimen disposition: to lab Condition: stable Disposition: floor (Recs: 1. OK to eat tonight. Will make NPO post-MN tonight; if continues to bleed, will need EGD with small bowel scope. 2. The duodenal lesions could be consistent with phosphate binder toxicity/use, and in combination with ASA and Eliquis could lead to clinically significant bleeding; also possible could be small bowel ischemic duodenitis. 3. Agree with Cards to transfuse to hgb >8; will also need to continue holding Eliquis and ASA. 4. Would be considered very high risk for significant anticoagulation (if needed for Cardiac procedure), should the need arise for an invasive cardiac procedure. 5. Will continue to follow for now.)
--- NOTE | 2019-04-13 19:22 | Operative Report ---
PROCEDURE PERFORMED: Esophagogastroduodenoscopy with cold biopsy. PREOPERATIVE DIAGNOSIS: Gastrointestinal bleed. POSTOPERATIVE DIAGNOSES: Duodenitis, gastritis, hiatal hernia, and arteriovenous malformations. ENDOSCOPIST: Apolinar Meyer MD INSTRUMENT: Olympus video endoscope. MEDICATIONS: MAC anesthesia by Anesthesia Services. COMPLICATIONS: No apparent complications. ESTIMATED BLOOD LOSS: Minimal. SPECIMENS: 1. Dark portion of the duodenum, rule out duodenitis. 2. Antrum of the stomach, rule out gastritis. IMPLANTS: None. ASSISTANTS: None. CONDITION AT COMPLETION: Stable. TECHNIQUE: The patient was informed of the risks and benefits of the procedure. He signed the informed consent to proceed. He was placed in left lateral decubitus position. The above sedative medications were given. His vital signs remained stable throughout the procedure. The instrument was advanced from the mouth to the third portion of the duodenum under direct visualization. At that point, the bowel was insufflated and the endoscope was slowly withdrawn. FINDINGS: 1. The duodenum was cannulated to the third portion with an upper and the endoscope. a. There were a few scattered blood clots and with lavage. There appeared to be some erosive inflammatory changes noted in the second and third portion of the duodenum. b. These could be consistent with either phosphate binder use, ischemia, or other inflammatory etiology. c. Cold biopsies were taken. 2. A few very small, less than 1 mm, angiodysplasias were noted in the bulb of the duodenum, but not in other portions of the upper GI tract; there were small and were not actively bleeding. 3. There was moderate erosive gastritis in the antrum as well as in the hiatal hernia/cardia of the stomach. a. Cold biopsies were taken of the antrum given the erosive gastritis. 4. No evidence of varices were noted in the stomach or the esophagus. RECOMMENDATIONS: 1. Okay for the patient to eat tonight. We will make him nothing by mouth after midnight; if he continues to bleed, he will need an upper endoscopy with a small bowel enteroscope given the blood clots noted in the duodenum. 2. The duodenal lesions could be consistent with phosphate binder, toxicity/use, especially in combination with aspirin and Eliquis, which could lead to clinically significant bleeding. Also, possibly could be small bowel ischemic duodenitis or other inflammatory process. 3. I agree with Cardiology to transfuse to hemoglobin of at least 8; we will also need to continue to hold the patient's Eliquis and aspirin. 4. The patient will be considered very high risk for significant anticoagulation if needed for a cardiac procedure, should any need arise for an invasive cardiac procedure. 5. We will continue to follow along with you. JOB# [id number] JANNIE/NTS
[2019-04-13] MEDS ORDERED: NACL 0.9% 1000 ML 1,000 ML ONE (20:07)
[2019-04-13] MEDS: PRAVACHOL PO SCH (22:32)
[2019-04-13] MEDS: SODIUM CHLORIDE FLUSH SYRINGE 10 ML IV SCH (22:34)
[2019-04-14 02:45] LABS: Hematocrit 25.2 % (35.5-45.6)
--- NOTE | 2019-04-14 05:59 | Consultation ---
REFERRING PHYSICIAN: Jeremie Colon M.D. REASON FOR CONSULTATION: Anemia, renal impairment and dark stools. HISTORY OF PRESENT ILLNESS: I saw the patient, a 78-year-old male in the medical floor. The patient's was present. They came to the hospital because of weakness, shortness of breath and history of dark stools. The patient has a history of COPD, coronary artery disease, status post stent, hyperlipidemia, ESRD, on dialysis for the last 2 years, hypertension, came in because of low blood pressure and generalized weakness. The patient has been on anticoagulation for cardiac issues. He came to the hospital because of dizziness and near syncope. No loss of consciousness. Before this admission, he was in [place] vacationing and he has had pneumonia, COPD in the past in [place] for this. At this time, blood transfusion has been given. GI team has seen the patient. Nephrology team has seen the patient. At this time, no headache, no visual disturbances. No ear discharge, no chest pain, shortness of breath has improved. No abdominal pain, no vomiting, no diarrhea, no dysuria. History of dark stools present. PAST MEDICAL HISTORY: As above. PAST SURGICAL HISTORY: Stent placement. SOCIAL HISTORY: Ex-smoker. FAMILY HISTORY: Noncontributory. ALLERGIES: ATORVASTATIN, CIPRO AND SIMVASTATIN. HOME MEDICATIONS: Included aspirin, Eliquis, metoprolol, nifedipine, amiodarone. PHYSICAL EXAMINATION: VITAL SIGNS: Temperature 97, pulse 83, respirations 18, BP 110/49. HEENT: Pallor present. No icterus. NECK: No neck lymph nodes. HEART: S1, S2. LUNGS: Clear to auscultation. ABDOMEN: Soft. SKIN: Dialysis catheter present on the skin. EXTREMITIES: No calf tenderness. NEUROLOGIC: Alert, awake. LABORATORY DATA: White cell 8, hemoglobin 6.1, MCV 89, platelet 112. Potassium 4.6, creatinine 8, calcium 7.6. RADIOLOGY: CT abdomen and pelvis was done, which shows prostate enlargement, thickening of the bladder. ASSESSMENT AND PLAN: 1. Normocytic anemia, history of dark stools, GI consultation. 2. Anemia, may be multifactorial. The patient's anemia and end-stage renal disease, he will also get iron and erythropoietin support with dialysis. 3. Thrombocytopenia, likely secondary to consumption. 4. The patient was on anticoagulation with Eliquis and also was on aspirin for cardiac issues. 5. History of hyperlipidemia. 6. History of chronic obstructive pulmonary disease. 7. History of coronary artery disease. 8. History of end-stage renal disease, on dialysis. 9. History of hypertension. 10. History of gout. 11. Transfusion support. 12. Deficiency investigation. I will follow the patient during inpatient stay. Serum iron is 63. Ferritin is 855, B12 is 298. Folate is 10. JOB# [id number] NM/NTS
[2019-04-14 06:32] LABS: Calcium 7.5 mg/dL (8.4-10.2)
--- NOTE | 2019-04-14 07:52 | Consultation ---
History of Present Illness Consult date: 04/14/19 Requesting physician: JALYN CRUZ Reason for consult: other (UGIB) History of present illness: The pt is a 78 YO male with past medical history of CAD s/p PCI, paroxysmal atrial fibrillation, anticoagulated with Eliquis, HTN, HLP, ESRD on HD, COPD. He presented with complaints of hypotension noted during dialysis, generalized weakness, dyspnea on exertion and several bouts of pre-syncope for one week prior to arrival. Pt also reports tarry black stools present for approximately 5 days prior to arrival. Admission H/H noted to be 5.6/16.6. Pt with suspected GI bleed s/p endoscopy and blood transfusions. His is at the bedside. I have been consulted for critical care management. He is s/p upper endoscopy which was unremarkable but will have a repeat EGD today fro further evaluation per GI documentation -Upper endoscopy revealed duodenal erosions, few very small AVMs noted in duodenal bulb, and gastritis Patient was seen and examined. Vitals, labs, medications, chart was reviewed. He currently denies any chest pain, palpitations, n/v, diaphoresis or syncope. Review of Systems Constitutional: no weight loss, no weight gain, no fever, no chills, no sweats Ears, nose, mouth and throat: no ear pain, no nose pain, no sinus pressure, no sinus pain Cardiovascular: lightheadedness, shortness of breath, dyspnea on exertion, no chest pain, no orthopnea, no palpitations, no rapid/irregular heart beat, no edema, no syncope, no paroxysmal nocturnal dyspnea, no high blood pressure, no leg edema Respiratory: shortness of breath, dyspnea on exertion, no cough, no congestion, no wheezing, no pain on inspiration Gastrointestinal: melena, no abdominal pain, no nausea, no vomiting, no diarrhea, no constipation Genitourinary Male: no dysuria, no hematuria, no flank pain, no discharge, no urinary frequency, no urinary hesitancy Musculoskeletal: no neck stiffness, no neck pain, no shooting arm pain, no arm numbness/tingling, no low back pain, no shooting leg pain Integumentary: no rash, no pruritis, no redness, no sores, no wounds Neurological: no head injury, no paralysis, no parathesias, no numbness, no tingling, no seizures, no syncope Psychiatric: no anxiety Endocrine: no cold intolerance, no heat intolerance Allergic/Immunologic: no urticaria Past History Past Medical History: CAD, dialysis, ESRD, heart failure, hypertension Past Surgical History: PTCA Social history: other (former smoker quit 30 years ago) Family history: no significant family history Medications and Allergies Allergies Allergy/AdvReac Type Severity Reaction Status Date / Time atorvastatin calcium Allergy Mild Unknown Verified 11/20/17 13:39 [From Lipitor] ciprofloxacin [From Cipro] Allergy Mild Bleeding Verified 11/20/17 13:39 ciprofloxacin HCl Allergy Mild Bleeding Verified 11/20/17 13:39 [From Cipro] simvastatin Allergy Mild Unknown Verified 11/20/17 13:39 Home Medications Medication Instructions Recorded Confirmed Last Taken Type Albuterol Sulfate [Proair 90 mcg IH QID PRN 08/28/18 04/10/19 08/26/18 History Respiclick] Aspirin [Aspirin BABY CHEW TAB] 81 mg PO QDAY 08/28/18 04/10/19 08/26/18 History Lanthanum Carbonate [Fosrenol] 2,000 mg PO TID 08/28/18 04/10/19 08/26/18 History NIFEdipine [Adalat cc] 60 mg PO BID 08/28/18 04/10/19 08/26/18 History Rosuvastatin Calcium [Crestor] 5 mg PO DAILY 08/28/18 04/10/19 08/26/18 History Sodium Bicarbonate 650 mg PO BID 08/28/18 04/10/19 08/26/18 History Terazosin HCl 10 mg PO HS 08/28/18 04/10/19 08/26/18 History Tiotropium [Spiriva] 2 puff DAILY 08/28/18 04/10/19 08/26/18 History Amiodarone HCl [Amiodarone 100 MG 100 mg PO DAILY 04/10/19 04/10/19 Unknown History TAB] Apixaban [Eliquis] 5 mg PO Q12H 04/10/19 04/10/19 Unknown History Metoprolol Xl [Metoprolol 50 mg PO DAILY 04/10/19 04/10/19 Unknown History SUCCINATE ER TAB] Active Meds: Active Medications Acetaminophen (Tylenol) 650 mg PO Q4H PRN PRN Reason: Pain MILD(1-3)/Fever >100.5/STOLL Last Admin: 04/12/19 20:09 Dose: 650 mg Documented by: Albuterol (Proventil) 2.5 mg IH Q3HRT PRN PRN Reason: Shortness Of Breath Allopurinol (Zyloprim) 100 mg PO QDAY [facility] Last Admin: 04/13/19 10:15 Dose: Not Given Documented by: Budesonide (Pulmicort) 0.5 mg IH Q12HRT [facility] Last Admin: 04/13/19 21:19 Dose: 0.5 mg Documented by: Docusate Sodium (Colace) 100 mg PO BID [facility] Last Admin: 04/13/19 22:32 Dose: Not Given Documented by: Sodium Chloride (Nacl 0.9%) 100 mls @ 999 mls/hr IV LIZANDRO PRN PRN Reason: Hypotension Amiodarone HCl 900 mg/ (Dextrose) 500 mls @ 33.333 mls/hr IV DIRECT [facility]; Protocol Ipratropium [place] (Atrovent) 0.5 mg IH BIDRT [facility] Last Admin: 04/13/19 21:19 Dose: 0.5 mg Documented by: Metoclopramide HCl (Reglan) 5 mg IV Q6H PRN PRN Reason: Nausea And Vomiting Last Admin: 04/12/19 23:38 Dose: 5 mg Documented by: Ondansetron HCl (Zofran) 4 mg IV Q8H PRN PRN Reason: Nausea And Vomiting Last Admin: 04/12/19 09:28 Dose: 4 mg Documented by: Pantoprazole Sodium (Protonix) 40 mg IV BID [facility] Last Admin: 04/13/19 22:32 Dose: 40 mg Documented by: Pravastatin Sodium (Pravachol) 40 mg PO QHS [facility] Last Admin: 04/13/19 22:32 Dose: 40 mg Documented by: Sodium Chloride (Sodium Chloride Flush Syringe 10 Ml) 10 ml IV BID [facility] Last Admin: 04/13/19 22:34 Dose: 10 ml Documented by: Sodium Chloride (Sodium Chloride Flush Syringe 10 Ml) 10 ml IV PRN PRN PRN Reason: LINE FLUSH Physical Examination Vital signs: Vital Signs BP 87/43 04/10/19 17:03 General appearance: no acute distress Eyes: non-icteric, other (anemic) ENT: oropharynx dry, other (Mallampati scopre 3/4) Neck: supple, no lymphadenopathy, no JVD Effort: normal Ascultation: Bilateral: clear, diminished breath sounds Cardiovascular: irregular rhythm Gastrointestinal: normoactive bowel sounds, soft, non-tender, non-distended Integumentary: normal Extremities: no cyanosis, no edema, pulses normal, no ischemia or petechiae Musculoskeletal: no deformities normal mental status, non-focal exam, pupils equal and round, CN II-XII normal, motor strength normal and mood appropriate, anxious Results - Laboratory Findings CBC and BMP: 04/16/19 05:14 04/16/19 05:14 PT/INR, D-dimer PT 17.9 Sec. (12.2-14.9) H 04/10/19 21:02 INR 1.38 (0.87-1.13) H 04/10/19 21:02 Abnormal lab findings: Abnormal Labs 04/10/19 04/10/19 04/10/19 17:29 17:29 18:12 RBC 2.00 L Hgb 5.6 L* Hct 16.6 L* MCV 83 L MCHC RDW 18.3 H Plt Count Lymph % (Auto) 7.8 L Hand % (Auto) Lymph # 0.7 L Seg Neutrophils % 83.2 H PT INR Chloride Carbon Dioxide BUN 65 H Creatinine 5.9 H Glucose 111 H POC Glucose Calcium TIBC Transferrin Ferritin Alkaline Phosphatase 33 L Troponin T 0.068 H Total Protein 5.6 L Albumin 3.0 L Triglycerides 307 H HDL Cholesterol 29 L Crossmatch See Detail 04/10/19 04/10/19 04/10/19 20:43 20:43 21:02 RBC Hgb Hct MCV MCHC RDW Plt Count Lymph % (Auto) Hand % (Auto) Lymph # Seg Neutrophils % PT 17.9 H INR 1.38 H Chloride Carbon Dioxide BUN Creatinine Glucose POC Glucose Calcium TIBC 176 L 168 L Transferrin 154 L Ferritin Alkaline Phosphatase Troponin T Total Protein Albumin Triglycerides HDL Cholesterol Crossmatch 04/10/19 04/11/19 04/11/19 23:10 05:05 05:05 RBC 2.26 L Hgb 6.6 L Hct 19.7 L* MCV MCHC RDW 19.2 H Plt Count 124 L Lymph % (Auto) 13.3 L Hand % (Auto) 10.3 H Lymph # 1.0 L Seg Neutrophils % 73.9 H PT INR Chloride Carbon Dioxide BUN 87 H Creatinine 7.1 H Glucose 111 H POC Glucose Calcium 8.1 L TIBC Transferrin Ferritin Alkaline Phosphatase Troponin T 0.064 H Total Protein Albumin Triglycerides HDL Cholesterol Crossmatch 04/11/19 04/11/19 04/12/19 10:43 10:43 07:56 RBC 2.09 L Hgb 6.9 L 6.1 L Hct 20.3 L 18.5 L* MCV MCHC RDW 17.3 H Plt Count 112 L Lymph % (Auto) Hand % (Auto) Lymph # Seg Neutrophils % PT INR Chloride Carbon Dioxide BUN Creatinine Glucose POC Glucose Calcium TIBC Transferrin Ferritin 855.7 H Alkaline Phosphatase Troponin T Total Protein Albumin Triglycerides HDL Cholesterol Crossmatch 04/12/19 04/12/19 04/12/19 23:16 23:39 23:39 RBC Hgb Hct MCV MCHC RDW Plt Count Lymph % (Auto) Hand % (Auto) Lymph # Seg Neutrophils % PT INR Chloride Carbon Dioxide 21 L BUN 132 H Creatinine 8.0 H Glucose 112 H POC Glucose 141 H Calcium 7.6 L TIBC Transferrin Ferritin Alkaline Phosphatase Troponin T 0.119 H* D Total Protein Albumin Triglycerides HDL Cholesterol Crossmatch 04/13/19 04/13/19 04/13/19 00:37 05:58 05:58 RBC 1.82 L 1.65 L Hgb 5.7 L* 4.9 L* Hct 15.9 L* 14.2 L* MCV MCHC 36 H 35 H RDW 16.1 H 15.9 H Plt Count 100 L 104 L Lymph % (Auto) Hand % (Auto) Lymph # Seg Neutrophils % PT INR Chloride Carbon Dioxide 21 L BUN 148 H Creatinine 9.4 H Glucose 121 H POC Glucose Calcium 7.2 L TIBC Transferrin Ferritin Alkaline Phosphatase Troponin T Total Protein Albumin Triglycerides HDL Cholesterol Crossmatch 04/13/19 04/13/19 04/14/19 05:58 16:51 01:39 RBC Hgb 8.3 L D 8.0 L Hct 24.2 L D 25.2 L MCV MCHC RDW Plt Count Lymph % (Auto) Hand % (Auto) Lymph # Seg Neutrophils % PT INR Chloride Carbon Dioxide BUN Creatinine Glucose POC Glucose Calcium TIBC Transferrin Ferritin Alkaline Phosphatase Troponin T 0.120 H* Total Protein Albumin Triglycerides HDL Cholesterol Crossmatch 04/14/19 05:33 RBC Hgb Hct MCV MCHC RDW Plt Count Lymph % (Auto) Hand % (Auto) Lymph # Seg Neutrophils % PT INR Chloride 96.6 L Carbon Dioxide BUN 82 H Creatinine 6.5 H Glucose 104 H POC Glucose Calcium 7.5 L TIBC Transferrin Ferritin Alkaline Phosphatase Troponin T Total Protein Albumin Triglycerides HDL Cholesterol Crossmatch - Diagnostic Findings Chest x-ray: image reviewed (04/10/19 possible RLL infiltre,chronic changes) Additional studies: Echo: report reviewed (05/2018 showed EF 50-55%, impaired relaxation, minimal MR, mild TR, mild [place]. ) Cardiac cath: report reviewed (08/2018 showed patent stents in the prox and mid LAD and mid distal circ, tight lesion in a fairly large marginal branch at the ostium which appears mild to mod calcified and tight. Lexiscan MPI stress done following LHC in 08/2018 to eval for ischemic burden showed no evidence of sig i schemia, ef-50%. ) EKG: report reviewed, image reviewed Assessment and Plan Hemorrhagic shock Severe symptomatic anemia Acute GI bleed. NSTEMI-Type 2 , demand ischemia Paroxysmal atrial fibrillation ESRD on HD Debility h/o COPD CAD s/p coronary stent 3 h/o Hypertension -Supportive transfusions to keep HgB>10.0, per cardiology -Keep NPO until further evaluation by GI -Continue with therapeutic PPI -Supportive HD as tolerated by hemodynamics -With life threatening bleeding will need to re-evaluate the benefits-risk profile of therapeutic anticoagulation -PT/OT to evaluate and treat -Chronic home medications -Bronchodilators, Brovana-Budesonide -Supplemental oxygen as needed to keep O2 sats>90% -Hold anti-hypertensive medications for now. Monitor his hemodynamics and once blood pressure remains in normal range, tehn gradually re-introduce anti- hypertensive medications -Discussed in ICU-IDT rounds Updated the patient and his re: care plan. PROGNOSIS: GUARDED CONDITION: FAIR CODE STATUS: FULL CODE The high probability of a clinically significant, sudden or life-threatening deterioration of the [gastrointestinal, cardiovascular] system(s) required my full and direct attention, intervention and personal management. The aggregate critical care time was [30] minutes without overlap. Time includes spent on; [x] Data Review and interpretation [x] Patient assessment and monitoring of vital signs [x] Documentation [x] Medication orders and management
--- NOTE | 2019-04-14 08:10 | Hem/Onc Progress Note ---
Assessment and Plan 1. Normocytic anemia, history of dark stools, GI consultation. 2. Anemia, may be multifactorial. The patient's anemia and end-stage renal disease, he will also get iron and erythropoietin support with dialysis. 3. Thrombocytopenia, likely secondary to consumption. 4. The patient was on anticoagulation with Eliquis and also was on aspirin for cardiac issues. 5. History of hyperlipidemia. 6. History of chronic obstructive pulmonary disease. 7. History of coronary artery disease. 8. History of end-stage renal disease, on dialysis. 9. History of hypertension. 10. History of gout. 11. Transfusion support. 12. Deficiency investigation. I will follow the patient during inpatient stay Serum iron is 63. Ferritin is 855, B12 is 298. Folate is 10. 04/14 - 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, and gastritis - Patient Problems (1) Anemia Current Visit: Yes Status: Acute Qualifiers: Anemia type: unspecified type Qualified Code(s): D64.9 - Anemia, unspecified Subjective Date of service: 04/14/19 Principal diagnosis: anemia Interval history: s/p GI eval Objective - Constitutional Vitals: Last Vital Signs Temp 98.4 F 04/14/19 03:51 Pulse 74 04/14/19 06:00 Resp 14 04/14/19 06:00 BP 108/49 04/14/19 06:00 Pulse Ox 93 04/14/19 06:00 Pain Intensity (0-10): denies any pain General appearance: no acute distress Performance status: 3-limited selfcare - EENT Eyes: EOM intact ENT: hearing intact Lymph node exam: negative cervical - Neck Neck: normal ROM - Respiratory Respiratory effort: Positive: normal Respiratory: bilateral: CTA (anteriorly) - Cardiovascular Heart Sounds: Present: S1 & S2 Extremities: normal temperature - Gastrointestinal General gastrointestinal: Present: soft, non-tender Rectal Exam: deferred - Genitourinary Male genitourinary: Present: deferred - Integumentary Integumentary: warm - Musculoskeletal Musculoskeletal: generalized weakness - Neurologic Neurologic: moves all extremities - Labs Lab Results: Laboratory Results - last 24 hr 06/07/19 06/10/19 06/11/19 18:12 16:51 01:39 Hgb 8.3 L D 8.0 L Hct 24.2 L D 25.2 L Sodium Potassium Chloride Carbon Dioxide Anion Gap BUN Creatinine Estimated GFR BUN/Creatinine Ratio Glucose Calcium Blood Type A POSITIVE Antibody Screen Negative Crossmatch See Detail 04/14/19 05:33 Hgb Hct Sodium 137 Potassium 3.8 Chloride 96.6 L Carbon Dioxide 26 Anion Gap 18 BUN 82 H Creatinine 6.5 H Estimated GFR 10 BUN/Creatinine Ratio 13 Glucose 104 H Calcium 7.5 L Blood Type Antibody Screen Crossmatch Medications & Allergies - Medications Allergies/Adverse Reactions: Allergies atorvastatin calcium [From Lipitor] Allergy (Mild, Verified 11/20/17 13:39) Unknown ACHES ciprofloxacin [From Cipro] Allergy (Mild, Verified 11/20/17 13:39) Bleeding NOSE BLEED ciprofloxacin HCl [From Cipro] Allergy (Mild, Verified 11/20/17 13:39) Bleeding NOSE BLEED simvastatin Allergy (Mild, Verified 11/20/17 13:39) Unknown ACHES Home Medications: Home Medications Medication Instructions Recorded Confirmed Last Taken Type Aspirin [Aspirin BABY CHEW TAB] 81 mg PO QDAY 08/28/18 04/10/19 08/26/18 History RX: Albuterol Sulfate [Proair 90 mcg IH QID PRN 08/28/18 04/10/19 08/26/18 History Respiclick] RX: Lanthanum Carbonate [Fosrenol] 2,000 mg PO TID 08/28/18 04/10/19 08/26/18 History RX: NIFEdipine [Adalat cc] 60 mg PO BID 08/28/18 04/10/19 08/26/18 History RX: Rosuvastatin Calcium [Crestor] 5 mg PO DAILY 08/28/18 04/10/19 08/26/18 History RX: Sodium Bicarbonate 650 mg PO BID 08/28/18 04/10/19 08/26/18 History RX: Terazosin HCl 10 mg PO HS 08/28/18 04/10/19 08/26/18 History RX: Tiotropium [Spiriva] 2 puff DAILY 08/28/18 04/10/19 08/26/18 History Amiodarone HCl [Amiodarone 100 MG 100 mg PO DAILY 04/10/19 04/10/19 Unknown History TAB] Apixaban [Eliquis] 5 mg PO Q12H 04/10/19 04/10/19 Unknown History Metoprolol Xl [Metoprolol 50 mg PO DAILY 04/10/19 04/10/19 Unknown History SUCCINATE ER TAB] Active Medications: Generic Name Dose Route Start Last Admin Trade Name Freq PRN Reason Stop Dose Admin Acetaminophen 650 mg 04/10/19 20:29 04/12/19 20:09 Tylenol PO 650 mg Q4H PRN Administration Pain MILD(1-3)/Fever >100.5/STOLL Albuterol 2.5 mg 04/10/19 20:29 Proventil IH Q3HRT PRN Shortness Of Breath Allopurinol 100 mg 04/11/19 10:00 04/13/19 10:15 Zyloprim PO Not Given QDAY DARNELL Budesonide 0.5 mg 04/10/19 20:30 04/13/19 21:19 Pulmicort IH 0.5 mg Q12HRT DARNELL Administration Docusate Sodium 100 mg 04/10/19 22:00 04/13/19 22:32 Colace PO Not Given BID [facility] Sodium Chloride 100 mls @ 999 mls/hr 04/12/19 17:12 Nacl 0.9% IV LIZANDRO PRN Hypotension Amiodarone HCl 900 mg/ 500 mls @ 33.333 mls/hr 04/13/19 14:00 Dextrose IV DIRECT ADRNELL Protocol 1 MG/MIN Ipratropium [place] 0.5 mg 04/11/19 20:00 04/13/19 21:19 Atrovent IH 0.5 mg BIDRT [facility]AR[facility] Administration Metoclopramide HCl 5 mg 04/12/19 23:26 04/12/19 23:38 Reglan IV 5 mg Q6H PRN Administration Nausea And Vomiting Ondansetron HCl 4 mg 04/10/19 20:29 04/12/19 09:28 Zofran IV 4 mg Q8H PRN Administration Nausea And Vomiting Pantoprazole Sodium 40 mg 04/11/19 14:00 04/13/19 22:32 Protonix IV 40 mg BID [facility] Administration Pravastatin Sodium 40 mg 04/11/19 22:00 04/13/19 22:32 Pravachol PO 40 mg QHS [facility] Administration Sodium Chloride 10 ml 04/10/19 22:00 04/13/19 22:34 Sodium Chloride Flush Syringe 10 Ml IV 10 ml BID [facility] Administration Sodium Chloride 10 ml 04/10/19 20:29 Sodium Chloride Flush Syringe 10 Ml IV PRN PRN LINE FLUSH
[2019-04-14] MEDS: PULMICORT IH SCH ×2 (09:02→19:33)
[2019-04-14] MEDS: ATROVENT IH SCH ×2 (09:02→19:33)
--- NOTE | 2019-04-14 09:51 | Progress Note ---
Subjective Principal diagnosis: anemia Interval history: Patient was seen today for follow-up on multiple renal related issues Events of this hospitalization noted Patient underwent upper endoscopy Patient denies having any chest pain pressure or shortness of breath Vitals labs intake output medications were reviewed Social history: Reviewed Allergies: Reviewed Family history: Reviewed Physical examination HEENT: Oral mucosa moist no pallor or icterus Neck: Supple no JVD Chest: Clear to auscultation anteriorly CVS: Regular rate and rhythm S1 and S2 heard Abdomen: Soft nontender no suprapubic masses no organomegaly appreciable Extremity: Dry skin less than 1+ peripheral edema Musculoskeletal: No joint effusion noted in knees and ankle Neurological: Alert awake Dermatology: No petechial rashes Psychiatry: No evidence of any agitation and aggression noted Assessment and plan; End-stage renal disease: Patient will continue with hemodialysis, on Saturday and Saturday schedule, he is currently being dialyzed at [facility] (formerly [facility]) dialysis facility and is currently established with us Anemia in end-stage renal disease complicated by GI bleed currently being followed by gastroenterology service monitor hemoglobin and hematocrit may require packed red blood cell transfusion depending on his hemoglobin we may consider giving him iron infusion, Discontinue Fosrenol due to GI toxicity iron tablets have been also placed on hold if needed we can give him IV iron infusion Noted to have inflammatory erosion of the duodenum, small AVM erosive gastritis hiatal hernia, avoid Renvela, Renagel, Fosrenol Secondary hyperparathyroidism: Check phosphorus and PTH level periodically Secondary hyperparathyroidism periodically check phosphorus and PTH level, goal phosphorus less than 5.5 PTH less than 600, educated about renal osteodystrophy Hypertension and volume: , Adjust medications as needed, ultrafiltration as tolerated keep systolic blood pressure above 100 Malnutrition risk: High please consider high protein diet as well as nutrition follow-up, patient needs at least 1.5 g protein per KG body weight Dialysis access: Currently working well, discussed about monitoring Dietary counseling and education: Done at length to improve outcome with end- stage renal disease Patient was also educated about the hospital related comorbidities We'll continue to follow and make recommendation from renal standpoint Objective - Vital Signs Vital signs: Vital Signs - 12hr 04/13/19 04/13/19 04/13/19 22:01 22:11 22:21 Temperature Pulse Rate 86 85 90 Pulse Rate [ Anterior Bilateral Throughout] Respiratory 17 15 13 Rate Respiratory Rate [Anterior Bilateral Throughout] Blood Pressure 97/36 97/36 97/36 O2 Sat by Pulse 100 100 100 Oximetry 04/13/19 04/13/19 04/13/19 22:31 22:41 22:51 Temperature Pulse Rate 84 84 80 Pulse Rate [ Anterior Bilateral Throughout] Respiratory 14 16 20 Rate Respiratory Rate [Anterior Bilateral Throughout] Blood Pressure 94/24 102/52 97/36 O2 Sat by Pulse 100 100 100 Oximetry 04/13/19 04/13/19 04/13/19 23:00 23:11 23:21 Temperature Pulse Rate 83 84 78 Pulse Rate [ Anterior Bilateral Throughout] Respiratory 16 15 13 Rate Respiratory Rate [Anterior Bilateral Throughout] Blood Pressure 108/57 108/57 108/57 O2 Sat by Pulse 100 100 100 Oximetry 04/13/19 04/13/19 04/13/19 23:30 23:41 23:48 Temperature 97.9 F Pulse Rate 84 80 Pulse Rate [ Anterior Bilateral Throughout] Respiratory 16 13 Rate Respiratory Rate [Anterior Bilateral Throughout] Blood Pressure 111/52 111/52 O2 Sat by Pulse 100 100 Oximetry 04/13/19 04/14/19 04/14/19 23:51 00:00 00:11 Temperature Pulse Rate 81 82 86 Pulse Rate [ Anterior Bilateral Throughout] Respiratory 15 15 13 Rate Respiratory Rate [Anterior Bilateral Throughout] Blood Pressure 111/52 116/51 116/51 O2 Sat by Pulse 100 95 97 Oximetry 04/14/19 04/14/19 04/14/19 00:19 00:21 00:31 Temperature Pulse Rate 80 81 80 Pulse Rate [ Anterior Bilateral Throughout] Respiratory 13 11 L Rate Respiratory Rate [Anterior Bilateral Throughout] Blood Pressure 116/51 113/87 O2 Sat by Pulse 97 98 Oximetry 04/14/19 04/14/19 04/14/19 00:41 00:51 01:21 Temperature Pulse Rate 91 H 80 76 Pulse Rate [ Anterior Bilateral Throughout] Respiratory 13 17 14 Rate Respiratory Rate [Anterior Bilateral Throughout] Blood Pressure 113/87 113/87 102/26 O2 Sat by Pulse 95 94 98 Oximetry 04/14/19 04/14/19 04/14/19 01:31 01:41 01:51 Temperature Pulse Rate 80 75 71 Pulse Rate [ Anterior Bilateral Throughout] Respiratory 18 13 16 Rate Respiratory Rate [Anterior Bilateral Throughout] Blood Pressure 102/26 107/38 102/26 O2 Sat by Pulse 98 99 100 Oximetry 04/14/19 04/14/1919 02:01 02:11 02:21 Temperature Pulse Rate 71 78 71 Pulse Rate [ Anterior Bilateral Throughout] Respiratory 15 13 11 L Rate Respiratory Rate [Anterior Bilateral Throughout] Blood Pressure 123/56 123/56 123/56 O2 Sat by Pulse 100 100 98 Oximetry 04/14/19 04/14/19 04/14/19 02:30 02:41 02:51 Temperature Pulse Rate 74 75 75 Pulse Rate [ Anterior Bilateral Throughout] Respiratory 16 13 13 Rate Respiratory Rate [Anterior Bilateral Throughout] Blood Pressure 125/49 125/49 125/49 O2 Sat by Pulse 97 97 96 Oximetry 04/14/19 04/14/19 04/14/19 03:00 03:11 03:21 Temperature Pulse Rate 75 77 89 Pulse Rate [ Anterior Bilateral Throughout] Respiratory 14 14 15 Rate Respiratory Rate [Anterior Bilateral Throughout] Blood Pressure 110/54 110/54 110/54 O2 Sat by Pulse 97 93 94 Oximetry 04/14/19 04/14/19 04/14/19 03:31 03:41 03:51 Temperature 98.4 F Pulse Rate 81 83 79 Pulse Rate [ Anterior Bilateral Throughout] Respiratory 13 15 15 Rate Respiratory Rate [Anterior Bilateral Throughout] Blood Pressure 118/63 118/63 118/63 O2 Sat by Pulse 95 95 95 Oximetry 04/14/19 04/14/19 04/14/19 04:00 04:10 04:21 Temperature Pulse Rate 76 72 75 Pulse Rate [ Anterior Bilateral Throughout] Respiratory 11 L 12 10 L Rate Respiratory Rate [Anterior Bilateral Throughout] Blood Pressure 120/61 120/61 120/61 O2 Sat by Pulse 93 98 93 Oximetry 04/14/19 04/14/19 04/14/19 04:30 04:41 04:51 Temperature Pulse Rate 71 72 64 Pulse Rate [ Anterior Bilateral Throughout] Respiratory 9 L 11 L 14 Rate Respiratory Rate [Anterior Bilateral Throughout] Blood Pressure 117/44 117/44 117/44 O2 Sat by Pulse 93 97 95 Oximetry 04/14/19 04/14/19 04/14/19 05:01 05:11 05:21 Temperature Pulse Rate 75 77 72 Pulse Rate [ Anterior Bilateral Throughout] Respiratory 13 15 12 Rate Respiratory Rate [Anterior Bilateral Throughout] Blood Pressure 124/61 124/61 124/61 O2 Sat by Pulse 95 99 96 Oximetry 04/14/19 04/14/19 04/14/19 05:31 05:41 05:51 Temperature Pulse Rate 75 72 73 Pulse Rate [ Anterior Bilateral Throughout] Respiratory 15 14 14 Rate Respiratory Rate [Anterior Bilateral Throughout] Blood Pressure 101/47 101/47 101/47 O2 Sat by Pulse 93 93 93 Oximetry 04/14/19 04/14/19 04/14/19 06:00 09:02 09:19 Temperature Pulse Rate 74 Pulse Rate [ 77 76 Anterior Bilateral Throughout] Respiratory 14 Rate Respiratory 18 20 Rate [Anterior Bilateral Throughout] Blood Pressure 108/49 O2 Sat by Pulse 93 97 Oximetry - Lab 04/14/19 01:39 04/14/19 05:33 Most recent lab results Calcium 7.5 mg/dL (8.4-10.2) L 04/14/19 05:33 Medications & Allergies - Medications Allergies/Adverse Reactions: Allergies atorvastatin calcium [From Lipitor] Allergy (Mild, Verified 11/20/17 13:39) Unknown ACHES ciprofloxacin [From Cipro] Allergy (Mild, Verified 11/20/17 13:39) Bleeding NOSE BLEED ciprofloxacin HCl [From Cipro] Allergy (Mild, Verified 11/20/17 13:39) Bleeding NOSE BLEED simvastatin Allergy (Mild, Verified 11/20/17 13:39) Unknown ACHES Home Medications: Home Medications Medication Instructions Recorded Confirmed Last Taken Type Albuterol Sulfate [Proair 90 mcg IH QID PRN 08/28/18 04/10/19 08/26/18 History Respiclick] Aspirin [Aspirin BABY CHEW TAB] 81 mg PO QDAY 08/28/18 04/10/19 08/26/18 History Lanthanum Carbonate [Fosrenol] 2,000 mg PO TID 08/28/18 04/10/19 08/26/18 History NIFEdipine [Adalat cc] 60 mg PO BID 08/28/18 04/10/19 08/26/18 History Rosuvastatin Calcium [Crestor] 5 mg PO DAILY 08/28/18 04/10/19 08/26/18 History Sodium Bicarbonate 650 mg PO BID 08/28/18 04/10/19 08/26/18 History Terazosin HCl 10 mg PO HS 08/28/18 04/10/19 08/26/18 History Tiotropium [Spiriva] 2 puff DAILY 08/28/18 04/10/19 08/26/18 History Amiodarone HCl [Amiodarone 100 MG 100 mg PO DAILY 04/10/19 04/10/19 Unknown History TAB] Apixaban [Eliquis] 5 mg PO Q12H 04/10/19 04/10/19 Unknown History Metoprolol Xl [Metoprolol 50 mg PO DAILY 04/10/19 04/10/19 Unknown History SUCCINATE ER TAB] Active Medications: Generic Name Dose Route Start Last Admin Trade Name Freq PRN Reason Stop Dose Admin Acetaminophen 650 mg 04/10/19 20:29 04/12/19 20:09 Tylenol PO 650 mg Q4H PRN Administration Pain MILD(1-3)/Fever >100.5/STOLL Albuterol 2.5 mg 04/10/19 20:29 Proventil IH Q3HRT PRN Shortness Of Breath Allopurinol 100 mg 04/11/19 10:00 04/13/19 10:15 Zyloprim PO Not Given QDAY DARNELL Budesonide 0.5 mg 04/10/19 20:30 04/14/19 09:02 Pulmicort IH 0.5 mg Q12HRT DARNELL Administration Docusate Sodium 100 mg 04/10/19 22:00 04/13/19 22:32 Colace PO Not Given BID DARNELL Sodium Chloride 100 mls @ 999 mls/hr 04/12/19 17:12 Nacl 0.9% IV LIZANDRO PRN Hypotension Amiodarone HCl 900 mg/ 500 mls @ 33.333 mls/hr 04/13/19 14:00 Dextrose IV DIRECT DARNELL Protocol 1 MG/MIN Ipratropium [place] 0.5 mg 04/11/19 20:00 04/14/19 09:02 Atrovent IH 0.5 mg BIDRT DARNELL Administration Metoclopramide HCl 5 mg 04/12/19 23:26 04/12/19 23:38 Reglan IV 5 mg Q6H PRN Administration Nausea And Vomiting Ondansetron HCl 4 mg 04/10/19 20:29 04/12/19 09:28 Zofran IV 4 mg Q8H PRN Administration Nausea And Vomiting Pantoprazole Sodium 40 mg 04/11/19 14:00 04/13/19 22:32 Protonix IV 40 mg BID DARNELL Administration Pravastatin Sodium 40 mg 04/11/19 22:00 04/13/19 22:32 Pravachol PO 40 mg QHS DARNELL Administration Sodium Chloride 10 ml 04/10/19 22:00 04/13/19 22:34 Sodium Chloride Flush Syringe 10 Ml IV 10 ml BID DARNELL Administration Sodium Chloride 10 ml 04/10/19 20:29 Sodium Chloride Flush Syringe 10 Ml IV PRN PRN LINE FLUSH
--- NOTE | 2019-04-14 10:28 | Progress Note ---
Assessment and Plan Pt with no current cardiac complaints, in NSR on telemetry. Resume home PO amio. S/p endoscopy yesterday, for possible endoscopy again today. Cont to hold systemic AC until GI w/u is complete. PRBC per primary - would prefer Hbg ~10 to prevent demand ischemia in setting of CAD. Will follow. The patient has been seen in conjunction with Dr. Stokes who agrees with the assessment and plan of care. - Patient Problems (1) GI bleed Current Visit: Yes Status: Suspected (2) Symptomatic anemia Current Visit: Yes Status: Acute (3) Paroxysmal atrial fibrillation with RVR Current Visit: Yes Status: Chronic (4) CAD (coronary artery disease) Current Visit: Yes Status: Chronic Qualifiers: Coronary Disease-Associated Artery/Lesion type: unspecified vessel or lesion type [place] vs. transplanted heart: [place] heart Associated angina: angina presence unspecified Qualified Code(s): I25.10 - Atherosclerotic heart disease of [place] coronary artery without angina pectoris (5) Stented coronary artery Current Visit: Yes Status: Chronic (6) Hypotension Current Visit: Yes Status: Acute Qualifiers: Hypotension type: unspecified hypotension type Qualified Code(s): I95.9 - Hypotension, unspecified (7) Near syncope Current Visit: Yes Status: Acute (8) ESRD on hemodialysis Current Visit: Yes Status: Chronic (9) NSTEMI (non-ST elevation myocardial infarction) Current Visit: Yes Status: Acute Subjective Date of service: 04/14/19 Principal diagnosis: anemia Interval history: pt resting in bed, no current cardiac complaints. at bedside. in SR on telemetry. Objective Last Vital Signs Temp 98.4 F 04/14/19 03:51 Pulse 76 04/14/19 09:19 Resp 20 04/14/19 09:19 BP 108/49 04/14/19 06:00 Pulse Ox 97 04/14/19 09:02 - Physical Examination General: No Apparent Distress HEENT: Positive: PERRL, Normocephaly, Mucus Membranes Moist Neck: Positive: neck supple, trachea midline Cardiac: Positive: Reg Rate and Rhythm, S1/S2 Lungs: Positive: Decreased Breath Sounds Neuro: Positive: Grossly Intact Abdomen: Negative: Tender Skin: Negative: Rash, Wound Musculoskeletal: No Pain Extremities: Absent: edema - Labs and Meds CBC 04/13/19 04/14/19 Range/Units 16:51 01:39 Hgb 8.3 L D 8.0 L (11.8-15.2) gm/dl Hct 24.2 L D 25.2 L (35.5-45.6) % Comprehensive Metabolic Panel 04/14/19 Range/Units 05:33 Sodium 137 (137-145) mmol/L Potassium 3.8 (3.6-5.0) mmol/L Chloride 96.6 L (98-107) mmol/L Carbon Dioxide 26 (22-30) mmol/L BUN 82 H (9-20) mg/dL Creatinine 6.5 H (0.8-1.5) mg/dL Glucose 104 H (75-100) mg/dL Calcium 7.5 L (8.4-10.2) mg/dL - Imaging and Cardiology EKG: report reviewed, image reviewed Echo: report reviewed (05/2018 showed EF 50-55%, impaired relaxation, minimal MR, mild TR, mild TX. ) Cardiac cath: report reviewed (08/2018 showed patent stents in the prox and mid LAD and mid distal circ, tight lesion in a fairly large marginal branch at the ostium which appears mild to mod calcified and tight. Lexiscan MPI stress done following LHC in 08/2018 to eval for ischemic burden showed no evidence of sig ischemia, ef-50%. ) - EKG Sinus rhythms and dysrhythmias: sinus rhythm
[2019-04-14] MEDS: PROTONIX IV SCH (10:46)
[2019-04-14] MEDS: COLACE PO SCH (10:46)
[2019-04-14] MEDS: SODIUM CHLORIDE FLUSH SYRINGE 10 ML IV SCH ×2 (10:47→13:32)
[2019-04-14] MEDS: CORDARONE PO SCH (10:49)
--- NOTE | 2019-04-14 12:16 | Gastroenterology Progress Note ---
<MARK SHELDON - Last Filed: 04/14/19 12:17> Assessment and Plan 1.anemia 2.melena -H/H 8.0/25.2-stable -continue to monitor H/H and transfer as needed -anticoagulants on hold -reports BM x 1 overnight with black stool (likely sequela) but no active signs of bleeding this am -s/p colonoscopy 12/26/2016 which showed 1 polyp and some diverticulosis -s/p EGD yesterday that showed duodenal erosions, few very small AVMs noted in d uodenal bulb, and gastritis -bx results pending -etiology-duodenal lesions could be consistent with phosphate binder toxicity/use, and in combination with ASA and Eliquis could lead to clinically significant bleeding; also possible could be small bowel ischemic duodenitis -patient would be considered very high risk for significant anticoagulation (if needed for Cardiac procedure), should the need arise for an invasive cardiac procedure -no plan for repeat scope at this time -if bleeding reoccurs, recommend EGD with small bowel scope -okay to start on clear liquids -continue PPI and supportive care -will follow Subjective Date of service: 04/14/19 Principal diagnosis: anemia Interval history: No acute distress. BM x 1 overnight with black stool (possibly sequela?). Denies abd pain or N/v. Objective - Constitutional Vitals: Temp Pulse Resp BP Pulse Ox 97.6 F 76 20 108/49 97 04/14/19 08:00 04/14/19 09:19 04/14/19 09:19 04/14/19 06:00 04/14/19 09:02 General appearance: no acute distress - Respiratory Respiratory effort: normal - Cardiovascular Rhythm: regular - Gastrointestinal General gastrointestinal: Present: soft, non-tender, non-distended, normal bowel sounds - Labs CBC & Chem 7: 04/14/19 01:39 04/14/19 05:33 Labs: Laboratory Results - last 24 hr 04/10/19 04/13/19 04/14/19 18:12 16:51 01:39 Hgb 8.3 L D 8.0 L Hct 24.2 L D 25.2 L Sodium Potassium Chloride Carbon Dioxide Anion Gap BUN Creatinine Estimated GFR BUN/Creatinine Ratio Glucose Calcium Blood Type A POSITIVE Antibody Screen Negative Crossmatch See Detail 04/14/19 05:33 Hgb Hct Sodium 137 Potassium 3.8 Chloride 96.6 L Carbon Dioxide 26 Anion Gap 18 BUN 82 H Creatinine 6.5 H Estimated GFR 10 BUN/Creatinine Ratio 13 Glucose 104 H Calcium 7.5 L Blood Type Antibody Screen Crossmatch <TACHO COSBY R - Last Filed: 04/14/19 16:33> Assessment and Plan Pt seen and examined. Daughter in room. Plan as noted. Would have Cardiology assess and minimize anticoagulation and antiplatelet measures. Objective - Constitutional Vitals: Temp Pulse Resp BP Pulse Ox 98.7 F 67 14 132/59 100 04/14/19 12:00 04/14/19 15:21 04/14/19 15:21 04/14/19 15:21 04/14/19 15:21 - Labs CBC & Chem 7: 04/14/19 01:39 04/14/19 05:33 Labs: Laboratory Results - last 24 hr 04/13/19 04/14/19 04/14/19 16:51 01:39 05:33 Hgb 8.3 L D 8.0 L Hct 24.2 L D 25.2 L Sodium 137 Potassium 3.8 Chloride 96.6 L Carbon Dioxide 26 Anion Gap 18 BUN 82 H Creatinine 6.5 H Estimated GFR 10 BUN/Creatinine Ratio 13 Glucose 104 H Calcium 7.5 L
--- NOTE | 2019-04-14 13:25 | Progress Note ---
Assessment and Plan Assessment and plan: Acute GI bleed. 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 GI with no plans to repeat EGD unless bleeding reoccurs. Start clear liquid diet today. Continue Protonix. Symptomatic anemia. Continue to monitor H&H and transfuse for hemoglobin less than 7. Paroxysmal atrial fibrillation. Anticoagulation per cardiology/GI. Continue amiodarone. ESRD on HD. Continue M/W/F hemodialysis per nephrology Debility. PT/OT evaluation. Hyperlipidemia. Continue pravastatin. COPD. compensated. CAD s/p coronary stent 3. Cardiology following. Hypertension. Continue antihypertensive medications. History of gout Disposition. Patient will be transferred to the floor. History Interval history: Patient is 78-year-old -[place] male with history of COPD, coronary artery disease status post stent 3, paroxysmal atrial fibrillation, was on Eliquis, hyperlipidemia, ESRD on hemodialysis M/W/F, and hypertension. He presented to Emergency Department with complaints of hypotension and generalized weakness. Patient was found to be profoundly anemic with hemoglobin of 5.6. He was hypotensive with blood pressure of 87/43. He was given iv fluids admitted. He was initially transfused 2 Units PRBC, remained anemic, transfused additional 2 Units. After 4 Units Hgb only 4.9 so ordered 3 units PRBC today 04/13. He is followed by GI and Nephrology. GI Physician had planned for EGD today. On 04/12/19 a code met called for syncope that resolve with a second episosde of syncope during dialysis. Also Troponin slightly elevated, Cardiology consulted, he was started on Amiodrone. Patient was transferred to ICU. 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 No varices noted in the stomach or softness. Hospitalist Physical - Constitutional Vitals: Temp Pulse Resp BP Pulse Ox 98.7 F 76 20 108/49 97 04/14/19 12:00 04/14/19 09:19 04/14/19 09:19 04/14/19 06:00 04/14/19 09:02 General appearance: Present: no acute distress - EENT Eyes: Present: PERRL, EOM intact ENT: hearing intact, clear oral mucosa, dentition normal - Neck Neck: Present: supple, normal ROM - Respiratory Respiratory effort: normal Respiratory: bilateral: CTA - Cardiovascular Rhythm: regular Heart Sounds: Present: S1 & S2. Absent: gallop, rub - Extremities Extremities: no ischemia, No edema, Full ROM - Abdominal General gastrointestinal: soft, non-tender, non-distended, normal bowel sounds - Integumentary Integumentary: Present: clear, warm, dry - Neurologic Neurologic: CNII-XII intact, moves all extremities Results - Labs CBC & Chem 7: 04/14/19 01:39 04/14/19 05:33 Labs: Laboratory Last Values WBC 6.3 K/mm3 (4.5-11.0) 04/13/19 05:58 RBC 1.65 M/mm3 (3.65-5.03) L 04/13/19 05:58 Hgb 8.0 gm/dl (11.8-15.2) L 04/14/19 01:39 Hct 25.2 % (35.5-45.6) L 04/14/19 01:39 MCV 86 fl (84-94) 04/13/19 05:58 MCH 30 pg (28-32) 04/13/19 05:58 MCHC 35 % (32-34) H 04/13/19 05:58 RDW 15.9 % (13.2-15.2) H 04/13/19 05:58 Plt Count 104 K/mm3 (140-440) L 04/13/19 05:58 Lymph % (Auto) Educational Programming Director 04/13/19 00:37 [place] % (Auto) Educational Programming Director 04/13/19 00:37 Eos % (Auto) Educational Programming Director 04/13/19 00:37 Baso % (Auto) Educational Programming Director 04/13/19 00:37 Lymph # Educational Programming Director 04/13/19 00:37 [place] # Educational Programming Director 04/13/19 00:37 Eos # Educational Programming Director 04/13/19 00:37 Baso # Educational Programming Director 04/13/19 00:37 Seg Neutrophils % Educational Programming Director 04/13/19 00:37 Seg Neutrophils # Educational Programming Director 04/13/19 00:37 PT 17.9 Sec. (12.2-14.9) H 04/10/19 21:02 INR 1.38 (0.87-1.13) H 04/10/19 21:02 Sodium 137 mmol/L (137-145) 04/14/19 05:33 Potassium 3.8 mmol/L (3.6-5.0) 04/14/19 05:33 Chloride 96.6 mmol/L (98-107) L 04/14/19 05:33 Carbon Dioxide 26 mmol/L (22-30) 04/14/19 05:33 18 mmol/L 04/14/19 05:33 BUN 82 mg/dL (9-20) H 04/14/19 05:33 6.5 mg/dL (0.8-1.5) H 04/14/19 05:33 Estimated GFR 10 ml/min 04/14/19 05:33 13 % 04/14/19 05:33 Glucose 104 mg/dL (75-100) H 04/14/19 05:33 POC Glucose 141 (70-105) H 04/12/19 23:16 Lactic Acid 1.50 mmol/L (0.7-2.0) 04/10/19 17:29 Calcium 7.5 mg/dL (8.4-10.2) L 04/14/19 05:33 Iron 62 ug/dL (49-181) 04/10/19 20:43 Iron 63 ug/dL (49-181) 04/10/19 20:43 TIBC 168 mcg/dL (250-450) L 04/10/19 20:43 TIBC 176 mcg/dL (250-450) L 04/10/19 20:43 % Saturation 37.50 % 04/10/19 20:43 154 mg/dl (180-329) L 04/10/19 20:43 855.7 ng/mL (13.0-400.0) H 04/11/19 10:43 < 0.20 mg/dL (0.1-1.2) 04/10/19 17:29 AST 11 units/L (5-40) 04/10/19 17:29 ALT 11 units/L (7-56) 04/10/19 17:29 33 units/L (35-129) L 04/10/19 17:29 106 units/L (55-170) 04/12/19 23:39 CK-MB (CK-2) 3.3 ng/mL (0.0-4.0) 04/12/19 23:39 CK-MB (CK-2) Rel Index 3.1 (0-4) 04/12/19 23:39 0.120 ng/mL (0.00-0.029) H* 04/13/19 05:58 5.6 g/dL (6.3-8.2) L 04/10/19 17:29 3.0 g/dL (3.9-5) L 04/10/19 17:29 1.2 % 04/10/19 17:29 Triglycerides 307 mg/dL (2-149) H 04/10/19 17:29 Cholesterol 135 mg/dL (50-199) 04/10/19 17:29 64 mg/dL (50-130) 04/10/19 17:29 29 mg/dL (40-59) L 04/10/19 17:29 4.65 % 04/10/19 17:29 Vitamin B12 298.4 pg/mL (211-911) 04/10/19 20:43 Hepatitis A IgM Ab Non-reactive (NonReactive) 04/11/19 18:11 Hep Bs Antigen Non-reactive (Negative) 04/11/19 18:11 Hep B Core IgM Ab Non-reactive (NonReactive) 04/11/19 18:11 Non-reactive (NonReactive) 04/11/19 18:11 Blood Type A POSITIVE 04/10/19 18:12 Antibody Screen Negative 04/10/19 18:12 Crossmatch See Detail 04/10/19 18:12 Active Medications - Current Medications Current Medications: Generic Name Dose Route Start Last Admin Trade Name Patrick PRN Reason Stop Dose Admin Acetaminophen 650 mg 04/10/19 20:29 04/12/19 20:09 Tylenol PO 650 mg Q4H PRN Administration Pain MILD(1-3)/Fever >100.5/STOLL Albuterol 2.5 mg 04/10/19 20:29 Proventil IH Q3HRT PRN Shortness Of Breath Amiodarone HCl 200 mg 04/14/19 11:00 04/14/19 10:49 Cordarone PO 200 mg DAILY DARNELL Administration Budesonide 0.5 mg 04/10/19 20:30 04/14/19 09:02 Pulmicort IH 0.5 mg Q12HRT DARNELL Administration Docusate Sodium 100 mg 04/10/19 22:00 04/14/19 10:46 Colace PO 100 mg BID DARNELL Administration Sodium Chloride 100 mls @ 999 mls/hr 04/12/19 17:12 Nacl 0.9% IV LIZANDRO PRN Hypotension Ipratropium [place] 0.5 mg 04/11/19 20:00 04/14/19 09:02 Atrovent IH 0.5 mg BIDRT DARNELL Administration Metoclopramide HCl 5 mg 04/12/19 23:26 04/12/19 23:38 Reglan IV 5 mg Q6H PRN Administration Nausea And Vomiting Ondansetron HCl 4 mg 04/10/19 20:29 04/12/19 09:28 Zofran IV 4 mg Q8H PRN Administration Nausea And Vomiting Pantoprazole Sodium 40 mg 04/11/19 14:00 04/14/19 10:46 Protonix IV 40 mg BID DARNELL Administration Pravastatin Sodium 40 mg 04/11/19 22:00 04/13/19 22:32 Pravachol PO 40 mg QHS DARNELL Administration Sodium Chloride 10 ml 04/10/19 22:00 04/14/19 10:47 Sodium Chloride Flush Syringe 10 Ml IV 10 ml BID DARNELL Administration Sodium Chloride 10 ml 04/10/19 20:29 Sodium Chloride Flush Syringe 10 Ml IV PRN PRN LINE FLUSH
[2019-04-14 18:24] LABS: Hematocrit 22.4 % (35.5-45.6); Hemoglobin 7.7 gm/dl (11.8-15.2)
[2019-04-15] MEDS: COLACE PO SCH ×3 (03:28→22:13)
[2019-04-15] MEDS: PROTONIX IV SCH (03:29)
[2019-04-15] MEDS: SODIUM CHLORIDE FLUSH SYRINGE 10 ML IV SCH ×3 (03:29→22:14)
[2019-04-15] MEDS: PRAVACHOL PO SCH ×2 (03:29→22:13)
--- NOTE | 2019-04-15 07:47 | Hem/Onc Progress Note ---
Assessment and Plan 1. Normocytic anemia, history of dark stools, GI consultation. 2. Anemia, may be multifactorial. The patient's anemia and end-stage renal disease, he will also get iron and erythropoietin support with dialysis. 3. Thrombocytopenia, likely secondary to consumption. 4. The patient was on anticoagulation with Eliquis and also was on aspirin for cardiac issues. 5. History of hyperlipidemia. 6. History of chronic obstructive pulmonary disease. 7. History of coronary artery disease. 8. History of end-stage renal disease, on dialysis. 9. History of hypertension. 10. History of gout. 11. Transfusion support. 12. Deficiency investigation. I will follow the patient during inpatient stay Serum iron is 63. Ferritin is 855, B12 is 298. Folate is 10. 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, and gastritis will follow hb - Patient Problems (1) Anemia Current Visit: Yes Status: Acute Qualifiers: Anemia type: unspecified type Qualified Code(s): D64.9 - Anemia, unspecified Subjective Date of service: 04/15/19 Principal diagnosis: feeling ok Interval history: s/p gi eval Objective - Constitutional Vitals: Last Vital Signs Temp 98.7 F 04/15/19 03:55 Pulse 85 04/15/19 03:55 Resp 18 04/15/19 03:55 BP 138/52 04/15/19 03:55 Pulse Ox 96 04/15/19 03:55 Pain Intensity (0-10): denies any pain General appearance: no acute distress Performance status: 3-limited selfcare - EENT Eyes: EOM intact ENT: hearing intact Lymph node exam: negative cervical - Neck Neck: normal ROM - Respiratory Respiratory effort: Positive: normal Respiratory: bilateral: CTA (anteriorly) - Cardiovascular Heart Sounds: Present: S1 & S2 Extremities: normal temperature - Gastrointestinal General gastrointestinal: Present: soft, non-tender Rectal Exam: deferred - Genitourinary Male genitourinary: Present: deferred - Integumentary Integumentary: warm - Musculoskeletal Musculoskeletal: strength equal bilaterally - Neurologic Neurologic: moves all extremities - Labs Lab Results: Laboratory Results - last 24 hr 06/07/19 06/11/19 20:43 17:12 Hgb 7.7 L Hct 22.4 L RBC Folic Acid >1000 Medications & Allergies - Medications Allergies/Adverse Reactions: Allergies atorvastatin calcium [From Lipitor] Allergy (Mild, Verified 11/20/17 13:39) Unknown ACHES ciprofloxacin [From Cipro] Allergy (Mild, Verified 11/20/17 13:39) Bleeding NOSE BLEED ciprofloxacin HCl [From Cipro] Allergy (Mild, Verified 11/20/17 13:39) Bleeding NOSE BLEED simvastatin Allergy (Mild, Verified 11/20/17 13:39) Unknown ACHES Home Medications: Home Medications Medication Instructions Recorded Confirmed Last Taken Type Albuterol Sulfate [Proair 90 mcg IH QID PRN 08/28/18 04/10/19 08/26/18 History Respiclick] Aspirin [Aspirin BABY CHEW TAB] 81 mg PO QDAY 08/28/18 04/10/19 08/26/18 History Lanthanum Carbonate [Fosrenol] 2,000 mg PO TID 08/28/18 04/10/19 08/26/18 History NIFEdipine [Adalat cc] 60 mg PO BID 08/28/18 04/10/19 08/26/18 History Rosuvastatin Calcium [Crestor] 5 mg PO DAILY 08/28/18 04/10/19 08/26/18 History Sodium Bicarbonate 650 mg PO BID 08/28/18 04/10/19 08/26/18 History Terazosin HCl 10 mg PO HS 08/28/18 04/10/19 08/26/18 History Tiotropium [Spiriva] 2 puff DAILY 08/28/18 04/10/19 08/26/18 History Amiodarone HCl [Amiodarone 100 MG 100 mg PO DAILY 04/10/19 04/10/19 Unknown History TAB] Apixaban [Eliquis] 5 mg PO Q12H 04/10/19 04/10/19 Unknown History Metoprolol Xl [Metoprolol 50 mg PO DAILY 04/10/19 04/10/19 Unknown History SUCCINATE ER TAB] Active Medications: Generic Name Dose Route Start Last Admin Trade Name Freq PRN Reason Stop Dose Admin Acetaminophen 650 mg 04/10/19 20:29 04/12/19 20:09 Tylenol PO 650 mg Q4H PRN Administration Pain MILD(1-3)/Fever >100.5/STOLL Albuterol 2.5 mg 04/10/19 20:29 Proventil IH Q3HRT PRN Shortness Of Breath Amiodarone HCl 200 mg 04/14/19 11:00 04/14/19 10:49 Cordarone PO 200 mg DAILY DARNELL Administration Budesonide 0.5 mg 04/10/19 20:30 04/14/19 19:33 Pulmicort IH 0.5 mg Q12HRT DARNELL Administration Docusate Sodium 100 mg 04/10/19 22:00 04/15/19 03:28 Colace PO Not Given BID [facility] Sodium Chloride 100 mls @ 999 mls/hr 04/12/19 17:12 Nacl 0.9% IV LIZANDRO PRN Hypotension Ipratropium [place] 0.5 mg 04/11/19 20:00 04/14/19 19:33 Atrovent IH 0.5 mg BIDRT DARNELL Administration Metoclopramide HCl 5 mg 04/12/19 23:26 04/12/19 23:38 Reglan IV 5 mg Q6H PRN Administration Nausea And Vomiting Ondansetron HCl 4 mg 04/10/19 20:29 04/12/19 09:28 Zofran IV 4 mg Q8H PRN Administration Nausea And Vomiting Pantoprazole Sodium 40 mg 04/11/19 14:00 04/15/19 03:29 Protonix IV Not Given BID [facility] Pravastatin Sodium 40 mg 04/11/19 22:00 04/15/19 03:29 Pravachol PO Not Given QHS [facility] Sodium Chloride 10 ml 04/10/19 22:00 04/15/19 03:29 Sodium Chloride Flush Syringe 10 Ml IV Not Given BID [facility] Sodium Chloride 10 ml 04/10/19 20:29 Sodium Chloride Flush Syringe 10 Ml IV PRN PRN LINE FLUSH
[2019-04-15] MEDS: PULMICORT IH SCH ×2 (08:36→21:07)
[2019-04-15] MEDS: ATROVENT IH SCH ×2 (08:36→21:07)
[2019-04-15] MEDS: REGLAN IV PRN (08:57)
[2019-04-15] MEDS: CORDARONE PO SCH ×2 (09:00→15:22)
[2019-04-15] MEDS ORDERED: NACL 0.9% 500 ML 500 ML IV ONE (09:05)
[2019-04-15] MEDS ORDERED: NACL 0.9 (PRIMING MACHINE ONLY DIALYSIS) MC ONE (11:14)
--- NOTE | 2019-04-15 11:41 | Gastroenterology Progress Note ---
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 Denies abd pain or N/V. Tolerating liquids. -okay to advance diet -no plan to repeat EGD at this time unless overt bleeding develops (would require EGD with small bowel scope) -patient very high risk for significant anticoagulation (need to minimize use if possible). Discussed risk vs benefits of use with cardiology this am. Recommendation per GI standpoint is to d/c ASA and resume Eliquis if recommended per cardiology- monitor and hold for active signs of bleeding. -continue PPI and supportive care -will follow Subjective Date of service: 04/15/19 Principal diagnosis: anemia Interval history: Patient sitting on the side of the bed this am w/o acute distress and at bedside. No active signs of bleeding overnight or this am. Denies abd pain or N/V. Tolerating liquids. Objective - Constitutional Vitals: Temp Pulse Resp BP Pulse Ox 97.9 F 84 18 138/59 97 04/15/19 08:17 04/15/19 10:00 04/15/19 08:50 04/15/19 08:17 04/15/19 09:54 General appearance: no acute distress - Respiratory Respiratory effort: normal - Cardiovascular Rhythm: regular - Gastrointestinal General gastrointestinal: Present: soft, non-tender, non-distended, normal bowel sounds - Neurologic Neurological: alert and oriented x3 - Labs CBC & Chem 7: 04/14/19 17:12 04/14/19 05:33 Labs: Laboratory Results - last 24 hr 04/10/19 04/14/19 04/15/19 20:43 17:12 10:31 Hgb 7.7 L Hct 22.4 L RBC Folic Acid >1000 Blood Type A POSITIVE Antibody Screen Negative Crossmatch See Detail <TACHO COSBY R - Last Filed: 04/15/19 15:47> Assessment and Plan As noted. Minimize OAC. Objective - Constitutional Vitals: Temp Pulse Resp BP Pulse Ox 97.9 F 77 18 139/72 95 04/15/19 15:11 04/15/19 15:22 04/15/19 15:11 04/15/19 15:22 04/15/19 15:11 - Labs CBC & Chem 7: 04/14/19 17:12 04/14/19 05:33 Labs: Laboratory Results - last 24 hr 04/10/19 04/10/19 04/14/19 18:12 20:43 17:12 Hgb 7.7 L Hct 22.4 L RBC Folic Acid >1000 Blood Type Antibody Screen Crossmatch See Detail 04/15/19 10:31 Hgb Hct RBC Folic Acid Blood Type A POSITIVE Antibody Screen Negative Crossmatch See Detail
--- NOTE | 2019-04-15 11:51 | Progress Note ---
Assessment and Plan Pt with no current cardiac complaints, in NSR on telemetry. BPs stable and slightly elevated - resume Toprol XL 25mg daily and titrate as tolerated, resume home Imdur, cont home amiodarone. Per GI team, recommendation is to d/c ASA and resume Eliquis if recommended per cardiology and monitor and hold for active signs of bleeding. Will resume Eliquis today. Assessment and plan reviewed with pt and pt's at bedside and they are agreeable. The patient has been seen in conjunction with Dr. Stokes who agrees with the assessment and plan of care. - Patient Problems (1) GI bleed Current Visit: Yes Status: Suspected (2) Symptomatic anemia Current Visit: Yes Status: Acute (3) Paroxysmal atrial fibrillation with RVR Current Visit: Yes Status: Chronic (4) CAD (coronary artery disease) Current Visit: Yes Status: Chronic Qualifiers: Coronary Disease-Associated Artery/Lesion type: unspecified vessel or lesion type [place] vs. transplanted heart: [place] heart Associated angina: angina presence unspecified Qualified Code(s): I25.10 - Atherosclerotic heart disease of [place] coronary artery without angina pectoris (5) Stented coronary artery Current Visit: Yes Status: Chronic (6) Hypotension Current Visit: Yes Status: Acute Qualifiers: Hypotension type: unspecified hypotension type Qualified Code(s): I95.9 - Hypotension, unspecified (7) Near syncope Current Visit: Yes Status: Acute (8) ESRD on hemodialysis Current Visit: Yes Status: Chronic (9) NSTEMI (non-ST elevation myocardial infarction) Current Visit: Yes Status: Acute Subjective Date of service: 04/15/19 Principal diagnosis: anemia Interval history: pt resting in bed, no current cardiac complaints. at bedside. in SR on telemetry. Objective Last Vital Signs Temp 97.9 F 04/15/19 08:17 Pulse 84 04/15/19 10:00 Resp 18 04/15/19 08:50 BP 138/59 04/15/19 08:17 Pulse Ox 97 04/15/19 09:54 - Physical Examination General: No Apparent Distress HEENT: Positive: PERRL, Normocephaly, Mucus Membranes Moist Neck: Positive: neck supple, trachea midline Cardiac: Positive: Reg Rate and Rhythm, S1/S2 Lungs: Positive: Decreased Breath Sounds Neuro: Positive: Grossly Intact Abdomen: Negative: Tender Skin: Negative: Rash, Wound Musculoskeletal: No Pain Extremities: Absent: edema - Labs and Meds CBC 04/14/19 Range/Units 17:12 Hgb 7.7 L (11.8-15.2) gm/dl Hct 22.4 L (35.5-45.6) % - Imaging and Cardiology EKG: report reviewed, image reviewed Echo: report reviewed (05/2018 showed EF 50-55%, impaired relaxation, minimal MR, mild TR, mild VT. ) Cardiac cath: report reviewed (08/2018 showed patent stents in the prox and mid LAD and mid distal circ, tight lesion in a fairly large marginal branch at the ostium which appears mild to mod calcified and tight. Lexiscan MPI stress done following LHC in 08/2018 to eval for ischemic burden showed no evidence of sig ischemia, ef-50%. ) - EKG Sinus rhythms and dysrhythmias: sinus rhythm
--- NOTE | 2019-04-15 12:01 | Progress Note ---
Assessment and Plan Assessment and plan: Left upper extremity edema. Check Doppler studies rule out DVT. Acute GI bleed. 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 GI with no plans to repeat EGD unless bleeding reoccurs. Start clear liquid diet today. Continue Protonix. Symptomatic anemia. Continue to monitor H&H and transfuse for hemoglobin less than 7. Paroxysmal atrial fibrillation. Per GI team, recommendation is to d/c ASA and resume Eliquis if recommended per cardiology and monitor and hold for active signs of bleeding. Continue amiodarone. ESRD on HD. Continue M/W/F hemodialysis per nephrology Debility. PT/OT evaluation. Hyperlipidemia. Continue pravastatin. COPD. compensated. CAD s/p coronary stent 3. Cardiology following. Hypertension. Continue antihypertensive medications. History of gout Disposition. Patient will be transferred to the floor. History Interval history: Patient is 78-year-old -[place] male with history of COPD, coronary ar [place] disease status post stent 3, paroxysmal atrial fibrillation, was on Eliquis, hyperlipidemia, ESRD on hemodialysis M/W/F, and hypertension. He presented to Emergency Department with complaints of hypotension and generalized weakness. Patient was found to be profoundly anemic with hemoglobin of 5.6. He was hypotensive with blood pressure of 87/43. He was given iv fluids admitted. He was initially transfused 2 Units PRBC, remained anemic, transfused additional 2 Units. After 4 Units Hgb only 4.9 so ordered 3 units PRBC today 04/13. He is followed by GI and Nephrology. GI Physician had planned for EGD today. On 04/12/19 a code met called for syncope that resolve with a second episosde of syncope during dialysis. Also Troponin slightly elevated, Cardiology consulted, he was started on Amiodrone. Patient was transferred to ICU. 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 No varices noted in the stomach or softness. Hospitalist Physical - Constitutional Vitals: Temp Pulse Resp BP Pulse Ox 98.2 F 62 18 129/69 97 04/15/19 10:10 04/15/19 11:45 04/15/19 10:10 04/15/19 11:45 04/15/19 09:54 General appearance: Present: no acute distress - EENT Eyes: Present: PERRL, EOM intact ENT: hearing intact, clear oral mucosa, dentition normal - Neck Neck: Present: supple, normal ROM - Respiratory Respiratory effort: normal Respiratory: bilateral: CTA - Cardiovascular Rhythm: regular Heart Sounds: Present: S1 & S2. Absent: gallop, rub - Extremities Extremities: no ischemia, No edema, Full ROM - Abdominal General gastrointestinal: soft, non-tender, non-distended, normal bowel sounds - Integumentary Integumentary: Present: clear, warm, dry - Neurologic Neurologic: CNII-XII intact, moves all extremities Results - Labs CBC & Chem 7: 04/14/19 17:12 04/14/19 05:33 Labs: Laboratory Last Values WBC 6.3 K/mm3 (4.5-11.0) 04/13/19 05:58 RBC 1.65 M/mm3 (3.65-5.03) L 04/13/19 05:58 Hgb 7.7 gm/dl (11.8-15.2) L 04/14/19 17:12 Hct 22.4 % (35.5-45.6) L 04/14/19 17:12 MCV 86 fl (84-94) 04/13/19 05:58 MCH 30 pg (28-32) 04/13/19 05:58 MCHC 35 % (32-34) H 04/13/19 05:58 RDW 15.9 % (13.2-15.2) H 04/13/19 05:58 Plt Count 104 K/mm3 (140-440) L 04/13/19 05:58 Lymph % (Auto) [employer] [place] 04/13/19 00:37 [place] % (Auto) [employer] [place] 04/13/19 00:37 Eos % (Auto) [employer] [place] 04/13/19 00:37 Baso % (Auto) [employer] [place] 04/13/19 00:37 Lymph # [employer] [place] 04/13/19 00:37 [place] # [employer] [place] 04/13/19 00:37 Eos # [employer] [place] 04/13/19 00:37 Baso # [employer] [place] 04/13/19 00:37 Seg Neutrophils % [employer] [place] 04/13/19 00:37 Seg Neutrophils # [employer] [place] 04/13/19 00:37 PT 17.9 Sec. (12.2-14.9) H 04/10/19 21:02 INR 1.38 (0.87-1.13) H 04/10/19 21:02 Sodium 137 mmol/L (137-145) 04/14/19 05:33 Potassium 3.8 mmol/L (3.6-5.0) 04/14/19 05:33 Chloride 96.6 mmol/L (98-107) L 04/14/19 05:33 Carbon Dioxide 26 mmol/L (22-30) 04/14/19 05:33 18 mmol/L 04/14/19 05:33 BUN 82 mg/dL (9-20) H 04/14/19 05:33 6.5 mg/dL (0.8-1.5) H 04/14/19 05:33 Estimated GFR 10 ml/min 04/14/19 05:33 13 % 04/14/19 05:33 Glucose 104 mg/dL (75-100) H 04/14/19 05:33 POC Glucose 141 (70-105) H 04/12/19 23:16 Lactic Acid 1.50 mmol/L (0.7-2.0) 04/10/19 17:29 Calcium 7.5 mg/dL (8.4-10.2) L 04/14/19 05:33 Iron 62 ug/dL (49-181) 04/10/19 20:43 Iron 63 ug/dL (49-181) 04/10/19 20:43 TIBC 168 mcg/dL (250-450) L 04/10/19 20:43 TIBC 176 mcg/dL (250-450) L 04/10/19 20:43 % Saturation 37.50 % 04/10/19 20:43 154 mg/dl (180-329) L 04/10/19 20:43 855.7 ng/mL (13.0-400.0) H 04/11/19 10:43 < 0.20 mg/dL (0.1-1.2) 04/10/19 17:29 AST 11 units/L (5-40) 04/10/19 17:29 ALT 11 units/L (7-56) 04/10/19 17:29 33 units/L (35-129) L 04/10/19 17:29 106 units/L (55-170) 04/12/19 23:39 CK-MB (CK-2) 3.3 ng/mL (0.0-4.0) 04/12/19 23:39 CK-MB (CK-2) Rel Index 3.1 (0-4) 04/12/19 23:39 0.120 ng/mL (0.00-0.029) H* 04/13/19 05:58 5.6 g/dL (6.3-8.2) L 04/10/19 17:29 3.0 g/dL (3.9-5) L 04/10/19 17:29 1.2 % 04/10/19 17:29 Triglycerides 307 mg/dL (2-149) H 04/10/19 17:29 Cholesterol 135 mg/dL (50-199) 04/10/19 17:29 64 mg/dL (50-130) 04/10/19 17:29 29 mg/dL (40-59) L 04/10/19 17:29 4.65 % 04/10/19 17:29 Vitamin B12 298.4 pg/mL (211-911) 04/10/19 20:43 RBC Folic Acid >1000 ng/mL (>280) 04/10/19 20:43 Hepatitis A IgM Ab Non-reactive (NonReactive) 04/11/19 18:11 Hep Bs Antigen Non-reactive (Negative) 04/11/19 18:11 Hep B Core IgM Ab Non-reactive (NonReactive) 04/11/19 18:11 Non-reactive (NonReactive) 04/11/19 18:11 Blood Type A POSITIVE 04/15/19 10:31 Antibody Screen Negative 04/15/19 10:31 Crossmatch See Detail 04/15/19 10:31 Active Medications - Current Medications Current Medications: Generic Name Dose Route Start Last Admin Trade Name Freq PRN Reason Stop Dose Admin Acetaminophen 650 mg 04/10/19 20:29 04/12/19 20:09 Tylenol PO 650 mg Q4H PRN Administration Pain MILD(1-3)/Fever >100.5/STOLL Albuterol 2.5 mg 04/10/19 20:29 Proventil IH Q3HRT PRN Shortness Of Breath Amiodarone HCl 100 mg 04/15/19 11:50 Cordarone PO DAILY DARNELL Apixaban 5 mg 04/15/19 22:00 Eliquis PO Q12HR [facility] Protocol Budesonide 0.5 mg 04/10/19 20:30 04/15/19 08:36 Pulmicort IH 0.5 mg Q12HRT DARNELL Administration Docusate Sodium 100 mg 04/10/19 22:00 04/15/19 09:00 Colace PO 100 mg BID [facility] Administration Sodium Chloride 100 mls @ 999 mls/hr 04/12/19 17:12 Nacl 0.9% IV LIZANDRO PRN Hypotension Ipratropium [place] 0.5 mg 04/11/19 20:00 04/15/19 08:36 Atrovent IH 0.5 mg BIDRT [facility] Administration Isosorbide Mononitrate 30 mg 04/16/19 10:00 Imdur PO QDAY [facility] Metoclopramide HCl 5 mg 04/12/19 23:26 04/15/19 08:57 Reglan IV 5 mg Q6H PRN Administration Nausea And Vomiting Metoprolol Succinate 25 mg 04/15/19 12:00 Toprol Xl PO QDAY [facility] Ondansetron HCl 4 mg 04/10/19 20:29 04/12/19 09:28 Zofran IV 4 mg Q8H PRN Administration Nausea And Vomiting Pantoprazole Sodium 40 mg 04/15/19 11:00 Protonix PO BID [facility] Pravastatin Sodium 40 mg 04/11/19 22:00 04/15/19 03:29 Pravachol PO Not Given QHS [facility] Sodium Chloride 10 ml 04/10/19 22:00 04/15/19 09:01 Sodium Chloride Flush Syringe 10 Ml IV 10 ml BID [facility] Administration Sodium Chloride 10 ml 04/10/19 20:29 Sodium Chloride Flush Syringe 10 Ml IV PRN PRN LINE FLUSH
--- NOTE | 2019-04-15 13:16 | Progress Note ---
Subjective Principal diagnosis: anemia Interval history: Patient was seen today for follow-up, on many renal related issues Tolerating dialysis treatment fairly well Noted to be B12 deficient Has been on anticoagulation being followed by cardiology and gastroenterology Interdisciplinary notes were reviewed Vitals labs intake and output medications were reviewed from today Allergies: Reviewed Social history: Reviewed Family history: Reviewed Physical examination HEENT: Oral mucosa moist no pharyngeal erythema Neck: Supple no JVD Chest: Clear to auscultation no crackles rales or wheezes Heart: Regular rate and rhythm S1-S2 heard no S3-S4 Abdomen: Soft nontender no renal bruit no CVA tenderness no suprapubic fullness Extremity: Mild edema dry skin no peripheral cyanosis pulses palpable Neurological: Alert awake Musculoskeletal: No joint effusion noted Assessment and plan End-stage renal disease: Patient will continue with hemodialysis 3 times a weeks, has been tolerating dialysis treatment fairly well Anemia, GI bleed being followed by gastroenterology anticoagulation currently being addressed by cardiology Dialysis access currently working well B12 low normal will start on replacement, and follow-up with a B12 level he will also need to make an appointment with hematology Nutrition counseling was done was educated As far as anemia is concerned currently patient's Iron saturation 33% Hemoglobin 7.7 potassium 3.8 Labs were reviewed We'll follow-up tomorrow On chronic anticoagulation for cardiology being followed by [facility] energy management specialist, history of coronary artery disease Malnutrition risk: High patient is to be maintained on high protein diet, probably 1.5 g protein per KG body weight hemodialysis ultrafiltration as tolerated Will continue to follow and make recommendation from renal standpoint Objective - Vital Signs Vital signs: Vital Signs - 12hr 04/15/19 04/15/19 04/15/19 03:55 08:17 08:36 Temperature 98.7 F 97.9 F Pulse Rate 85 82 Pulse Rate [ 78 Anterior Bilateral Throughout] Respiratory 18 18 Rate Respiratory 18 Rate [Anterior Bilateral Throughout] Blood Pressure 138/52 138/59 O2 Sat by Pulse 96 97 Oximetry 04/15/19 04/15/19 04/15/19 08:50 09:54 10:00 Temperature Pulse Rate 84 Pulse Rate [ 80 Anterior Bilateral Throughout] Respiratory Rate Respiratory 18 Rate [Anterior Bilateral Throughout] Blood Pressure O2 Sat by Pulse 97 Oximetry 04/15/19 04/15/19 04/15/19 10:10 10:25 10:30 Temperature 98.2 F Pulse Rate 82 79 80 Pulse Rate [ Anterior Bilateral Throughout] Respiratory 18 Rate Respiratory Rate [Anterior Bilateral Throughout] Blood Pressure 146/73 155/79 164/78 O2 Sat by Pulse Oximetry 04/15/19 04/15/19 04/15/19 10:45 11:00 11:15 Temperature Pulse Rate 77 59 L 72 Pulse Rate [ Anterior Bilateral Throughout] Respiratory Rate Respiratory Rate [Anterior Bilateral Throughout] Blood Pressure 146/85 155/75 127/64 O2 Sat by Pulse Oximetry 04/15/19 04/15/19 04/15/19 11:30 11:45 12:00 Temperature Pulse Rate 66 62 60 Pulse Rate [ Anterior Bilateral Throughout] Respiratory Rate Respiratory Rate [Anterior Bilateral Throughout] Blood Pressure 121/61 129/69 120/49 O2 Sat by Pulse Oximetry 04/15/19 04/15/19 12:15 12:45 Temperature 98.2 F Pulse Rate 67 77 Pulse Rate [ Anterior Bilateral Throughout] Respiratory 18 Rate Respiratory Rate [Anterior Bilateral Throughout] Blood Pressure 130/65 138/53 O2 Sat by Pulse 98 Oximetry - Lab 04/16/19 05:14 04/16/19 05:14 Most recent lab results Calcium 7.5 mg/dL (8.4-10.2) L 04/14/19 05:33 Medications & Allergies - Medications Allergies/Adverse Reactions: Allergies atorvastatin calcium [From Lipitor] Allergy (Mild, Verified 11/20/17 13:39) Unknown ACHES ciprofloxacin [From Cipro] Allergy (Mild, Verified 11/20/17 13:39) Bleeding NOSE BLEED ciprofloxacin HCl [From Cipro] Allergy (Mild, Verified 11/20/17 13:39) Bleeding NOSE BLEED simvastatin Allergy (Mild, Verified 11/20/17 13:39) Unknown ACHES Home Medications: Home Medications Medication Instructions Recorded Confirmed Last Taken Type Albuterol Sulfate [Proair 90 mcg IH QID PRN 08/28/18 04/10/19 08/26/18 History Respiclick] Aspirin [Aspirin BABY CHEW TAB] 81 mg PO QDAY 08/28/18 04/10/19 08/26/18 History Lanthanum Carbonate [Fosrenol] 2,000 mg PO TID 08/28/18 04/10/19 08/26/18 History NIFEdipine [Adalat cc] 60 mg PO BID 08/28/18 04/10/19 08/26/18 History Rosuvastatin Calcium [Crestor] 5 mg PO DAILY 08/28/18 04/10/19 08/26/18 History Sodium Bicarbonate 650 mg PO BID 08/28/18 04/10/19 08/26/18 History Terazosin HCl 10 mg PO HS 08/28/18 04/10/19 08/26/18 History Tiotropium [Spiriva] 2 puff DAILY 08/28/18 04/10/19 08/26/18 History Amiodarone HCl [Amiodarone 100 MG 100 mg PO DAILY 04/10/19 04/10/19 Unknown History TAB] Apixaban [Eliquis] 5 mg PO Q12H 04/10/19 04/10/19 Unknown History Metoprolol Xl [Metoprolol 50 mg PO DAILY 04/10/19 04/10/19 Unknown History SUCCINATE ER TAB] Active Medications: Generic Name Dose Route Start Last Admin Trade Name Freq PRN Reason Stop Dose Admin Acetaminophen 650 mg 04/10/19 20:29 04/12/19 20:09 Tylenol PO 650 mg Q4H PRN Administration Pain MILD(1-3)/Fever >100.5/STOLL Albuterol 2.5 mg 04/10/19 20:29 Proventil IH Q3HRT PRN Shortness Of Breath Amiodarone HCl 100 mg 04/15/19 13:00 Cordarone PO DAILY DARNELL Apixaban 5 mg 04/15/19 22:00 Eliquis PO Q12HR DARNELL Protocol Budesonide 0.5 mg 04/10/19 20:30 04/15/19 08:36 Pulmicort IH 0.5 mg Q12HRT DARNELL Administration Docusate Sodium 100 mg 04/10/19 22:00 04/15/19 09:00 Colace PO 100 mg BID DARNELL Administration Sodium Chloride 100 mls @ 999 mls/hr 04/12/19 17:12 Nacl 0.9% IV LIZANDRO PRN Hypotension Ipratropium [place] 0.5 mg 04/11/19 20:00 04/15/19 08:36 Atrovent IH 0.5 mg BIDRT DARNELL Administration Isosorbide Mononitrate 30 mg 04/16/19 10:00 Imdur PO QDAY DARNELL Metoclopramide HCl 5 mg 04/12/19 23:26 04/15/19 08:57 Reglan IV 5 mg Q6H PRN Administration Nausea And Vomiting Metoprolol Succinate 25 mg 04/15/19 13:00 Toprol Xl PO QDAY [facility] Ondansetron HCl 4 mg 04/10/19 20:29 04/12/19 09:28 Zofran IV 4 mg Q8H PRN Administration Nausea And Vomiting Pantoprazole Sodium 40 mg 04/15/19 11:00 Protonix PO BID [facility] Pravastatin Sodium 40 mg 04/11/19 22:00 04/15/19 03:29 Pravachol PO Not Given QHS DARNELL Sodium Chloride 10 ml 04/10/19 22:00 04/15/19 09:01 Sodium Chloride Flush Syringe 10 Ml IV 10 ml BID DARNELL Administration Sodium Chloride 10 ml 04/10/19 20:29 Sodium Chloride Flush Syringe 10 Ml IV PRN PRN LINE FLUSH
[2019-04-15] MEDS ORDERED: VITAMIN B-12 IM ONE (13:17)
[2019-04-15] MEDS: TOPROL XL PO SCH (15:22)
[2019-04-15] MEDS: PROTONIX PO SCH ×2 (17:11→22:14)
--- NOTE | 2019-04-15 17:45 | Progress Note ---
Assessment and Plan Patient Awake. Patient resting on room air. O2 saturation 97%. No acute respiratory distress. - Patient Problems (1) Hypotension Current Visit: Yes Status: Acute Qualifiers: Hypotension type: unspecified hypotension type Qualified Code(s): I95.9 - Hypotension, unspecified Plan to address problem: Improved. Recent blood pressure 113/77. (2) NSTEMI (non-ST elevation myocardial infarction) Current Visit: Yes Status: Acute Plan to address problem: Management as per cardiology. (3) Near syncope Current Visit: Yes Status: Acute Plan to address problem: Management as per primary care and cardiology. (4) Symptomatic anemia Current Visit: Yes Status: Acute Plan to address problem: Improving. Todays HGB 7,7. Management as per primary care and hematology. (5) CAD (coronary artery disease) Current Visit: Yes Status: Chronic Qualifiers: Coronary Disease-Associated Artery/Lesion type: unspecified vessel or lesion type [place] vs. transplanted heart: [place] heart Associated angina: angina presence unspecified Qualified Code(s): I25.10 - Atherosclerotic heart disease of [place] coronary artery without angina pectoris Plan to address problem: Management as per cardiology. (6) ESRD on hemodialysis Current Visit: Yes Status: Chronic Plan to address problem: Management as per Nephrology. (7) COPD (chronic obstructive pulmonary disease) Current Visit: No Status: Chronic Qualifiers: Chronic bronchitis type: unspecified Plan to address problem: O2 2 litres via nasal canula. Albuterol/atrovent aerosol treatments q 6 hours. Budesonide aerosol treatments q 12 hours. Patient is on Apixaban. Continue Protonix. Subjective Date of service: 04/15/19 Principal diagnosis: anemia Interval history: Patient Awake. Patient resting on room air. O2 saturation 97%. No acute respiratory distress. Objective Vital Signs - 12hr 04/15/19 04/15/19 04/15/19 08:17 08:36 08:50 Temperature 97.9 F Pulse Rate 82 Pulse Rate [ 78 80 Anterior Bilateral Throughout] Pulse Rate [ From Monitor] Respiratory 18 Rate Respiratory 18 18 Rate [Anterior Bilateral Throughout] Blood Pressure 138/59 O2 Sat by Pulse 97 Oximetry 04/15/19 04/15/19 04/15/19 09:54 10:00 10:10 Temperature 98.2 F Pulse Rate 84 82 Pulse Rate [ Anterior Bilateral Throughout] Pulse Rate [ From Monitor] Respiratory 18 Rate Respiratory Rate [Anterior Bilateral Throughout] Blood Pressure 146/73 O2 Sat by Pulse 97 Oximetry 04/15/19 04/15/19 04/15/19 10:25 10:30 10:45 Temperature Pulse Rate 79 80 77 Pulse Rate [ Anterior Bilateral Throughout] Pulse Rate [ From Monitor] Respiratory Rate Respiratory Rate [Anterior Bilateral Throughout] Blood Pressure 155/79 164/78 146/85 O2 Sat by Pulse Oximetry 04/15/19 04/15/19 04/15/19 11:00 11:15 11:30 Temperature Pulse Rate 59 L 72 66 Pulse Rate [ Anterior Bilateral Throughout] Pulse Rate [ From Monitor] Respiratory Rate Respiratory Rate [Anterior Bilateral Throughout] Blood Pressure 155/75 127/64 121/61 O2 Sat by Pulse Oximetry 04/15/19 04/15/19 04/15/19 11:45 12:00 12:15 Temperature Pulse Rate 62 60 67 Pulse Rate [ Anterior Bilateral Throughout] Pulse Rate [ From Monitor] Respiratory Rate Respiratory Rate [Anterior Bilateral Throughout] Blood Pressure 129/69 120/49 130/65 O2 Sat by Pulse Oximetry 04/15/19 04/15/19 04/15/19 12:45 13:20 15:11 Temperature 98.2 F 98.2 F 97.9 F Pulse Rate 77 74 77 Pulse Rate [ Anterior Bilateral Throughout] Pulse Rate [ From Monitor] Respiratory 18 18 18 Rate Respiratory Rate [Anterior Bilateral Throughout] Blood Pressure 138/53 137/77 139/72 O2 Sat by Pulse 98 100 95 Oximetry 04/15/19 04/15/19 15:22 16:08 Temperature Pulse Rate 77 77 Pulse Rate [ Anterior Bilateral Throughout] Pulse Rate [ 75 From Monitor] Respiratory 20 Rate Respiratory Rate [Anterior Bilateral Throughout] Blood Pressure 139/72 O2 Sat by Pulse 96 Oximetry Constitutional: no acute distress, alert Eyes: non-icteric Neck: supple, no lymphadenopathy Ascultation: Bilateral: diminished breath sounds Cardiovascular: regular rate and rhythm Gastrointestinal: normoactive bowel sounds, soft Integumentary: normal Extremities: no cyanosis, no edema Neurologic: normal mental status, non-focal exam, pupils equal and round, CN II- XII normal Psychiatric: depressed CBC and BMP: 04/14/19 17:12 04/14/19 05:33 ABG, PT/INR, D-dimer: PT/INR, D-dimer PT 17.9 Sec. (12.2-14.9) H 04/10/19 21:02 INR 1.38 (0.87-1.13) H 04/10/19 21:02 Abnormal lab findings: Abnormal Labs 04/10/19 04/10/19 04/10/19 17:29 17:29 18:12 RBC 2.00 L Hgb 5.6 L* Hct 16.6 L* MCV 83 L MCHC RDW 18.3 H Plt Count Lymph % (Auto) 7.8 L [place] % (Auto) Lymph # 0.7 L Seg Neutrophils % 83.2 H PT INR Chloride Carbon Dioxide BUN 65 H Creatinine 5.9 H Glucose 111 H POC Glucose Calcium TIBC Transferrin Ferritin Alkaline Phosphatase 33 L Troponin T 0.068 H Total Protein 5.6 L Albumin 3.0 L Triglycerides 307 H HDL Cholesterol 29 L Crossmatch See Detail 04/10/19 04/10/19 04/10/19 20:43 20:43 21:02 RBC Hgb Hct MCV MCHC RDW Plt Count Lymph % (Auto) [place] % (Auto) Lymph # Seg Neutrophils % PT 17.9 H INR 1.38 H Chloride Carbon Dioxide BUN Creatinine Glucose POC Glucose Calcium TIBC 176 L 168 L Transferrin 154 L Ferritin Alkaline Phosphatase Troponin T Total Protein Albumin Triglycerides HDL Cholesterol Crossmatch 04/10/19 04/11/19 04/11/19 23:10 05:05 05:05 RBC 2.26 L Hgb 6.6 L Hct 19.7 L* MCV MCHC RDW 19.2 H Plt Count 124 L Lymph % (Auto) 13.3 L [place] % (Auto) 10.3 H Lymph # 1.0 L Seg Neutrophils % 73.9 H PT INR Chloride Carbon Dioxide BUN 87 H Creatinine 7.1 H Glucose 111 H POC Glucose Calcium 8.1 L TIBC Transferrin Ferritin Alkaline Phosphatase Troponin T 0.064 H Total Protein Albumin Triglycerides HDL Cholesterol Crossmatch 04/11/19 04/11/19 04/12/19 10:43 10:43 07:56 RBC 2.09 L Hgb 6.9 L 6.1 L Hct 20.3 L 18.5 L* MCV MCHC RDW 17.3 H Plt Count 112 L Lymph % (Auto) [place] % (Auto) Lymph # Seg Neutrophils % PT INR Chloride Carbon Dioxide BUN Creatinine Glucose POC Glucose Calcium TIBC Transferrin Ferritin 855.7 H Alkaline Phosphatase Troponin T Total Protein Albumin Triglycerides HDL Cholesterol Crossmatch 04/12/19 04/12/19 04/12/19 23:16 23:39 23:39 RBC Hgb Hct MCV MCHC RDW Plt Count Lymph % (Auto) [place] % (Auto) Lymph # Seg Neutrophils % PT INR Chloride Carbon Dioxide 21 L BUN 132 H Creatinine 8.0 H Glucose 112 H POC Glucose 141 H Calcium 7.6 L TIBC Transferrin Ferritin Alkaline Phosphatase Troponin T 0.119 H* D Total Protein Albumin Triglycerides HDL Cholesterol Crossmatch 04/13/19 04/13/19 04/13/19 00:37 05:58 05:58 RBC 1.82 L 1.65 L Hgb 5.7 L* 4.9 L* Hct 15.9 L* 14.2 L* MCV MCHC 36 H 35 H RDW 16.1 H 15.9 H Plt Count 100 L 104 L Lymph % (Auto) [place] % (Auto) Lymph # Seg Neutrophils % PT INR Chloride Carbon Dioxide 21 L BUN 148 H Creatinine 9.4 H Glucose 121 H POC Glucose Calcium 7.2 L TIBC Transferrin Ferritin Alkaline Phosphatase Troponin T Total Protein Albumin Triglycerides HDL Cholesterol Crossmatch 04/13/19 04/13/19 04/14/19 05:58 16:51 01:39 RBC Hgb 8.3 L D 8.0 L Hct 24.2 L D 25.2 L MCV MCHC RDW Plt Count Lymph % (Auto) [place] % (Auto) Lymph # Seg Neutrophils % PT INR Chloride Carbon Dioxide BUN Creatinine Glucose POC Glucose Calcium TIBC Transferrin Ferritin Alkaline Phosphatase Troponin T 0.120 H* Total Protein Albumin Triglycerides HDL Cholesterol Crossmatch 04/14/19 04/14/19 04/15/19 05:33 17:12 10:31 RBC Hgb 7.7 L Hct 22.4 L MCV MCHC RDW Plt Count Lymph % (Auto) [place] % (Auto) Lymph # Seg Neutrophils % PT INR Chloride 96.6 L Carbon Dioxide BUN 82 H Creatinine 6.5 H Glucose 104 H POC Glucose Calcium 7.5 L TIBC Transferrin Ferritin Alkaline Phosphatase Troponin T Total Protein Albumin Triglycerides HDL Cholesterol Crossmatch See Detail Chest x-ray: report reviewed (Reported changes of emphysema. No acute process.), image reviewed
[2019-04-15] MEDS: ELIQUIS PO SCH (22:14)
[2019-04-16 06:23] LABS: Basophils % (Auto) 0.7 % (0.0-1.8); Eosinophils # (Auto) 0.2 K/mm3 (0.0-0.4); Eosinophils % (Auto) 3.5 % (0.0-4.3); Hematocrit 28.1 % (35.5-45.6); Hemoglobin 9.7 gm/dl (11.8-15.2); Lymphocytes # (Auto) 0.8 K/mm3 (1.2-5.4); Lymphocytes % (Auto) 14.9 % (13.4-35.0); Mean Corpuscular HGB Conc 34 % (32-34); Mean Corpuscular Volume 87 fl (84-94); Monocytes # (Auto) 0.6 K/mm3 (0.0-0.8); Monocytes % (Auto) 11.5 % (0.0-7.3); Red Blood Count 3.21 M/mm3 (3.65-5.03); Red Cell Distribution Width 17.2 % (13.2-15.2)
[2019-04-16 06:32] LABS: Platelet Count 93 K/mm3 (140-440)
[2019-04-16 06:47] LABS: Calcium 7.6 mg/dL (8.4-10.2)
--- NOTE | 2019-04-16 07:40 | Hem/Onc Progress Note ---
Assessment and Plan 1. Normocytic anemia, history of dark stools, GI consultation. 2. Anemia, may be multifactorial. The patient's anemia and end-stage renal disease, he will also get iron and erythropoietin support with dialysis. 3. Thrombocytopenia, likely secondary to consumption. 4. The patient was on anticoagulation with Eliquis and also was on aspirin for cardiac issues. 5. History of hyperlipidemia. 6. History of chronic obstructive pulmonary disease. 7. History of coronary artery disease. 8. History of end-stage renal disease, on dialysis. 9. History of hypertension. 10. History of gout. 11. Transfusion support. 12. Deficiency investigation. I will follow the patient during inpatient stay Serum iron is 63. Ferritin is 855, B12 is 298. Folate is 10. 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, and gastritis will follow hb pt got prbc hb >9 today - Patient Problems (1) Anemia Current Visit: Yes Status: Acute Qualifiers: Anemia type: unspecified type Qualified Code(s): D64.9 - Anemia, unspecified Subjective Date of service: 04/16/19 Principal diagnosis: anemia Interval history: s/p prbc Objective - Constitutional Vitals: Last Vital Signs Temp 98.7 F 04/16/19 03:59 Pulse 64 04/16/19 03:59 Resp 16 04/16/19 03:59 BP 154/69 04/16/19 03:59 Pulse Ox 95 04/16/19 03:59 Pain Intensity (0-10): denies any pain General appearance: no acute distress Performance status: 3-limited selfcare - EENT Eyes: EOM intact ENT: hearing intact Lymph node exam: negative supraclavicular - Neck Neck: normal ROM - Respiratory Respiratory effort: Positive: normal Respiratory: bilateral: CTA (anteriorly) - Cardiovascular Heart Sounds: Present: S1 & S2 Extremities: normal temperature - Gastrointestinal General gastrointestinal: Present: soft, non-tender Rectal Exam: deferred - Genitourinary Male genitourinary: Present: deferred - Integumentary Integumentary: warm - Musculoskeletal Musculoskeletal: strength equal bilaterally, generalized weakness - Neurologic Neurologic: moves all extremities - Labs Lab Results: Laboratory Results - last 24 hr 04/10/19 04/15/19 04/16/19 18:12 10:31 05:14 WBC 5.6 RBC 3.21 L Hgb 9.7 L Hct 28.1 L MCV 87 MCH 30 MCHC 34 RDW 17.2 H Plt Count 93 L Lymph % (Auto) 14.9 [place] % (Auto) 11.5 H Eos % (Auto) 3.5 Baso % (Auto) 0.7 Lymph # 0.8 L [place] # 0.6 Eos # 0.2 Baso # 0.0 Seg Neutrophils % 69.4 Seg Neutrophils # 3.9 Sodium Potassium Chloride Carbon Dioxide Anion Gap BUN Creatinine Estimated GFR BUN/Creatinine Ratio Glucose Calcium Blood Type A POSITIVE Antibody Screen Negative Crossmatch See Detail See Detail 04/16/19 05:14 WBC RBC Hgb Hct MCV MCH MCHC RDW Plt Count Lymph % (Auto) [place] % (Auto) Eos % (Auto) Baso % (Auto) Lymph # [place] # Eos # Baso # Seg Neutrophils % Seg Neutrophils # Sodium 138 Potassium 3.9 Chloride 96.6 L Carbon Dioxide 27 Anion Gap 18 BUN 36 H Creatinine 5.2 H Estimated GFR 13 BUN/Creatinine Ratio 7 Glucose 96 Calcium 7.6 L Blood Type Antibody Screen Crossmatch Medications & Allergies - Medications Allergies/Adverse Reactions: Allergies atorvastatin calcium [From Lipitor] Allergy (Mild, Verified 11/20/17 13:39) Unknown ACHES ciprofloxacin [From Cipro] Allergy (Mild, Verified 11/20/17 13:39) Bleeding NOSE BLEED ciprofloxacin HCl [From Cipro] Allergy (Mild, Verified 11/20/17 13:39) Bleeding NOSE BLEED simvastatin Allergy (Mild, Verified 11/20/17 13:39) Unknown ACHES Home Medications: Home Medications Medication Instructions Recorded Confirmed Last Taken Type Albuterol Sulfate [Proair 90 mcg IH QID PRN 08/28/18 04/10/19 08/26/18 History Respiclick] Aspirin [Aspirin BABY CHEW TAB] 81 mg PO QDAY 08/28/18 04/10/19 08/26/18 History Lanthanum Carbonate [Fosrenol] 2,000 mg PO TID 08/28/18 04/10/19 08/26/18 History NIFEdipine [Adalat cc] 60 mg PO BID 08/28/18 04/10/19 08/26/18 History Rosuvastatin Calcium [Crestor] 5 mg PO DAILY 08/28/18 04/10/19 08/26/18 History Sodium Bicarbonate 650 mg PO BID 08/28/18 04/10/19 08/26/18 History Terazosin HCl 10 mg PO HS 08/28/18 04/10/19 08/26/18 History Tiotropium [Spiriva] 2 puff DAILY 08/28/18 04/10/19 08/26/18 History Amiodarone HCl [Amiodarone 100 MG 100 mg PO DAILY 04/10/19 04/10/19 Unknown History TAB] Apixaban [Eliquis] 5 mg PO Q12H 04/10/19 04/10/19 Unknown History Metoprolol Xl [Metoprolol 50 mg PO DAILY 04/10/19 04/10/19 Unknown History SUCCINATE ER TAB] Active Medications: Generic Name Dose Route Start Last Admin Trade Name Freq PRN Reason Stop Dose Admin Acetaminophen 650 mg 04/10/19 20:29 04/12/19 20:09 Tylenol PO 650 mg Q4H PRN Administration Pain MILD(1-3)/Fever >100.5/STOLL Albuterol 2.5 mg 04/10/19 20:29 Proventil IH Q3HRT PRN Shortness Of Breath Amiodarone HCl 100 mg 04/15/19 13:00 04/15/19 15:22 Cordarone PO 100 mg DAILY DARNELL Administration Apixaban 5 mg 04/15/19 22:00 04/15/19 22:14 Eliquis PO 5 mg Q12HR DARNELL Administration Protocol Budesonide 0.5 mg 04/10/19 20:30 04/15/19 21:07 Pulmicort IH 0.5 mg Q12HRT DARNELL Administration Docusate Sodium 100 mg 04/10/19 22:00 04/15/19 22:13 Colace PO 100 mg BID DARNELL Administration Sodium Chloride 100 mls @ 999 mls/hr 04/12/19 17:12 Nacl 0.9% IV LIZANDRO PRN Hypotension Ipratropium [place] 0.5 mg 04/11/19 20:00 04/15/19 21:07 Atrovent IH 0.5 mg BIDRT DARNELL Administration Isosorbide Mononitrate 30 mg 04/16/19 10:00 Imdur PO QDAY DARNELL Metoclopramide HCl 5 mg 04/12/19 23:26 04/15/19 08:57 Reglan IV 5 mg Q6H PRN Administration Nausea And Vomiting Metoprolol Succinate 25 mg 04/15/19 13:00 04/15/19 15:22 Toprol Xl PO 25 mg QDAY DARNELL Administration Ondansetron HCl 4 mg 04/10/19 20:29 04/12/19 09:28 Zofran IV 4 mg Q8H PRN Administration Nausea And Vomiting Pantoprazole Sodium 40 mg 04/15/19 11:00 04/15/19 22:14 Protonix PO 40 mg BID DARNELL Administration Pravastatin Sodium 40 mg 04/11/19 22:00 04/15/19 22:13 Pravachol PO 40 mg QHS DARNELL Administration Sodium Chloride 10 ml 04/10/19 22:00 04/15/19 22:14 Sodium Chloride Flush Syringe 10 Ml IV 10 ml BID DARNELL Administration Sodium Chloride 10 ml 04/10/19 20:29 Sodium Chloride Flush Syringe 10 Ml IV PRN PRN LINE FLUSH
[2019-04-16] MEDS: ATROVENT IH SCH ×2 (07:44→20:54)
[2019-04-16] MEDS: PULMICORT IH SCH ×2 (07:44→20:54)
--- NOTE | 2019-04-16 09:04 | Progress Note ---
Assessment and Plan Hemorrhagic shock Severe symptomatic anemia Acute GI bleed. NSTEMI-Type 2 , demand ischemia Paroxysmal atrial fibrillation ESRD on HD Debility h/o COPD CAD s/p coronary stent 3 h/o Hypertension -Supportive transfusions to keep HgB> 7 -Continue with therapeutic PPI -Supportive HD as tolerated by hemodynamics -With life threatening bleeding will need to re-evaluate the benefits-risk profile of therapeutic anticoagulation To resume Eliquis per Cardiology notes -PT/OT - continue to increase activity and gait stability -Chronic home medications -Bronchodilators, Brovana-Budesonide -Supplemental oxygen as needed to keep O2 sats>90% -Influenza and pneumonia vaccination per protocol -Discharge planning Updated the patient and his re: care plan. Continue all other care per Attending and consultants Subjective Date of service: 04/16/19 Principal diagnosis: anemia Interval history: Follow up: Severe anemia; hemorrhagic shock. Seen and examined. Vitals, labs, medications, chart reviewed. No acute overnight event. Sitting up in bed, at the bedside. He denies any chest pain, no shortness of breath, no fevers or chills. No dizziness. No diarrhea, no vomiting. Started working with physical therapy Objective Vital Signs - 12hr 04/15/19 04/15/19 04/15/19 21:08 21:27 22:11 Temperature Pulse Rate 64 Pulse Rate [ 82 88 Posterior Bilateral Throughout] Respiratory Rate Respiratory 16 16 Rate [Posterior Bilateral Throughout] Respiratory Rate [denies] Blood Pressure O2 Sat by Pulse 100 Oximetry 04/15/19 04/15/19 04/16/19 22:38 23:18 01:48 Temperature 98.2 F Pulse Rate 75 Pulse Rate [ Posterior Bilateral Throughout] Respiratory 20 18 Rate Respiratory Rate [Posterior Bilateral Throughout] Respiratory 20 Rate [denies] Blood Pressure 144/62 O2 Sat by Pulse 95 Oximetry 04/16/19 04/16/19 04/16/19 03:59 07:44 08:31 Temperature 98.7 F 98.3 F Pulse Rate 64 78 Pulse Rate [ 72 Posterior Bilateral Throughout] Respiratory 16 18 Rate Respiratory 19 Rate [Posterior Bilateral Throughout] Respiratory Rate [denies] Blood Pressure 154/69 163/59 O2 Sat by Pulse 95 94 Oximetry Constitutional: no acute distress Eyes: non-icteric, other ENT: oropharynx moist, other (Mallampati scopre 3/4) Neck: supple, no lymphadenopathy, no JVD Effort: normal Ascultation: Bilateral: clear, diminished breath sounds Cardiovascular: irregular rhythm Gastrointestinal: normoactive bowel sounds, soft, non-tender, non-distended Integumentary: normal Extremities: no cyanosis, no edema, pulses normal, no ischemia or petechiae Neurologic: normal mental status, non-focal exam, pupils equal and round, CN II-XII normal, motor strength normal and Psychiatric: mood appropriate, affect normal CBC and BMP: 04/17/19 07:48 04/16/19 05:14 ABG, PT/INR, D-dimer: PT/INR, D-dimer PT 17.9 Sec. (12.2-14.9) H 04/10/19 21:02 INR 1.38 (0.87-1.13) H 04/10/19 21:02 Abnormal lab findings: Abnormal Labs 04/10/19 04/10/19 04/10/19 17:29 17:29 18:12 RBC 2.00 L Hgb 5.6 L* Hct 16.6 L* MCV 83 L MCHC RDW 18.3 H Plt Count Lymph % (Auto) 7.8 L [place] % (Auto) Lymph # 0.7 L Seg Neutrophils % 83.2 H PT INR Chloride Carbon Dioxide BUN 65 H Creatinine 5.9 H Glucose 111 H POC Glucose Calcium TIBC Transferrin Ferritin Alkaline Phosphatase 33 L Troponin T 0.068 H Total Protein 5.6 L Albumin 3.0 L Triglycerides 307 H HDL Cholesterol 29 L Crossmatch See Detail 04/10/19 04/10/19 04/10/19 20:43 20:43 21:02 RBC Hgb Hct MCV MCHC RDW Plt Count Lymph % (Auto) [place] % (Auto) Lymph # Seg Neutrophils % PT 17.9 H INR 1.38 H Chloride Carbon Dioxide BUN Creatinine Glucose POC Glucose Calcium TIBC 176 L 168 L Transferrin 154 L Ferritin Alkaline Phosphatase Troponin T Total Protein Albumin Triglycerides HDL Cholesterol Crossmatch 04/10/19 04/11/19 04/11/19 23:10 05:05 05:05 RBC 2.26 L Hgb 6.6 L Hct 19.7 L* MCV MCHC RDW 19.2 H Plt Count 124 L Lymph % (Auto) 13.3 L [place] % (Auto) 10.3 H Lymph # 1.0 L Seg Neutrophils % 73.9 H PT INR Chloride Carbon Dioxide BUN 87 H Creatinine 7.1 H Glucose 111 H POC Glucose Calcium 8.1 L TIBC Transferrin Ferritin Alkaline Phosphatase Troponin T 0.064 H Total Protein Albumin Triglycerides HDL Cholesterol Crossmatch 04/11/19 04/11/19 04/12/19 10:43 10:43 07:56 RBC 2.09 L Hgb 6.9 L 6.1 L Hct 20.3 L 18.5 L* MCV MCHC RDW 17.3 H Plt Count 112 L Lymph % (Auto) [place] % (Auto) Lymph # Seg Neutrophils % PT INR Chloride Carbon Dioxide BUN Creatinine Glucose POC Glucose Calcium TIBC Transferrin Ferritin 855.7 H Alkaline Phosphatase Troponin T Total Protein Albumin Triglycerides HDL Cholesterol Crossmatch 04/12/19 04/12/19 04/12/19 23:16 23:39 23:39 RBC Hgb Hct MCV MCHC RDW Plt Count Lymph % (Auto) [place] % (Auto) Lymph # Seg Neutrophils % PT INR Chloride Carbon Dioxide 21 L BUN 132 H Creatinine 8.0 H Glucose 112 H POC Glucose 141 H Calcium 7.6 L TIBC Transferrin Ferritin Alkaline Phosphatase Troponin T 0.119 H* D Total Protein Albumin Triglycerides HDL Cholesterol Crossmatch 04/13/19 04/13/19 04/13/19 00:37 05:58 05:58 RBC 1.82 L 1.65 L Hgb 5.7 L* 4.9 L* Hct 15.9 L* 14.2 L* MCV MCHC 36 H 35 H RDW 16.1 H 15.9 H Plt Count 100 L 104 L Lymph % (Auto) [place] % (Auto) Lymph # Seg Neutrophils % PT INR Chloride Carbon Dioxide 21 L BUN 148 H Creatinine 9.4 H Glucose 121 H POC Glucose Calcium 7.2 L TIBC Transferrin Ferritin Alkaline Phosphatase Troponin T Total Protein Albumin Triglycerides HDL Cholesterol Crossmatch 04/13/19 04/13/19 04/14/19 05:58 16:51 01:39 RBC Hgb 8.3 L D 8.0 L Hct 24.2 L D 25.2 L MCV MCHC RDW Plt Count Lymph % (Auto) [place] % (Auto) Lymph # Seg Neutrophils % PT INR Chloride Carbon Dioxide BUN Creatinine Glucose POC Glucose Calcium TIBC Transferrin Ferritin Alkaline Phosphatase Troponin T 0.120 H* Total Protein Albumin Triglycerides HDL Cholesterol Crossmatch 04/14/19 04/14/19 04/15/19 05:33 17:12 10:31 RBC Hgb 7.7 L Hct 22.4 L MCV MCHC RDW Plt Count Lymph % (Auto) [place] % (Auto) Lymph # Seg Neutrophils % PT INR Chloride 96.6 L Carbon Dioxide BUN 82 H Creatinine 6.5 H Glucose 104 H POC Glucose Calcium 7.5 L TIBC Transferrin Ferritin Alkaline Phosphatase Troponin T Total Protein Albumin Triglycerides HDL Cholesterol Crossmatch See Detail 04/16/19 04/16/19 05:14 05:14 RBC 3.21 L Hgb 9.7 L Hct 28.1 L MCV MCHC RDW 17.2 H Plt Count 93 L Lymph % (Auto) [place] % (Auto) 11.5 H Lymph # 0.8 L Seg Neutrophils % PT INR Chloride 96.6 L Carbon Dioxide BUN 36 H Creatinine 5.2 H Glucose POC Glucose Calcium 7.6 L TIBC Transferrin Ferritin Alkaline Phosphatase Troponin T Total Protein Albumin Triglycerides HDL Cholesterol Crossmatch
[2019-04-16] MEDS: CORDARONE PO SCH (09:43)
[2019-04-16] MEDS: TOPROL XL PO SCH (09:43)
[2019-04-16] MEDS: PROTONIX PO SCH ×2 (09:44→21:35)
[2019-04-16] MEDS: ELIQUIS PO SCH ×2 (09:44→21:36)
[2019-04-16] MEDS: IMDUR PO SCH (09:45)
[2019-04-16] MEDS: COLACE PO SCH ×2 (09:45→21:35)
[2019-04-16] MEDS: SODIUM CHLORIDE FLUSH SYRINGE 10 ML IV SCH ×2 (09:45→21:36)
--- NOTE | 2019-04-16 11:03 | Gastroenterology Progress Note ---
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 Denies abd pain or N/V. Tolerating diet. -no plan to repeat EGD at this time unless overt bleeding develops (would require EGD with small bowel scope) -Eliquis resumed yesterday (ASA d/c) -start on Miralax for constipation -continue PPI and supportive care -if no further bleeding and H/H stable in am, patient okay to be d/c per GI standpoint with f/u in clinic Subjective Date of service: 04/16/19 Principal diagnosis: anemia Interval history: Patient resting in bed this am w/o acute distress and at bedside. Reports a scant amount of black colored stool overnight. C/o feeling constipated. Denies abd pain or N/V. Tolerating diet. Objective - Constitutional Vitals: Temp Pulse Resp BP Pulse Ox 98.3 F 79 18 146/69 94 04/16/19 08:31 04/16/19 09:45 04/16/19 08:31 04/16/19 09:45 04/16/19 08:31 General appearance: no acute distress - Respiratory Respiratory effort: normal - Cardiovascular Rhythm: regular - Gastrointestinal General gastrointestinal: Present: soft, non-tender, non-distended, normal bowel sounds - Neurologic Neurological: alert and oriented x3 - Labs CBC & Chem 7: 04/16/19 05:14 04/16/19 05:14 Labs: Laboratory Results - last 24 hr 04/10/19 04/15/19 04/16/19 18:12 10:31 05:14 WBC 5.6 RBC 3.21 L Hgb 9.7 L Hct 28.1 L MCV 87 MCH 30 MCHC 34 RDW 17.2 H Plt Count 93 L Lymph % (Auto) 14.9 [place] % (Auto) 11.5 H Eos % (Auto) 3.5 Baso % (Auto) 0.7 Lymph # 0.8 L [place] # 0.6 Eos # 0.2 Baso # 0.0 Seg Neutrophils % 69.4 Seg Neutrophils # 3.9 Sodium Potassium Chloride Carbon Dioxide Anion Gap BUN Creatinine Estimated GFR BUN/Creatinine Ratio Glucose Calcium Blood Type A POSITIVE Antibody Screen Negative Crossmatch See Detail See Detail 04/16/19 05:14 WBC RBC Hgb Hct MCV MCH MCHC RDW Plt Count Lymph % (Auto) [place] % (Auto) Eos % (Auto) Baso % (Auto) Lymph # [place] # Eos # Baso # Seg Neutrophils % Seg Neutrophils # Sodium 138 Potassium 3.9 Chloride 96.6 L Carbon Dioxide 27 Anion Gap 18 BUN 36 H Creatinine 5.2 H Estimated GFR 13 BUN/Creatinine Ratio 7 Glucose 96 Calcium 7.6 L Blood Type Antibody Screen Crossmatch
--- NOTE | 2019-04-16 12:28 | Progress Note ---
Assessment and Plan Currently stable cardiac status. Eliquis has been resumed. Per GI team, if no further bleeding and H/H stable in am, patient okay to be d/c per GI standpoint. When ok with GI, pt may discharge home from cardiology standpoint on current cardiac regimen. Recommend pt follow up in our office with Dr. West within 1-2 weeks of hospital discharge ([phone]). The patient has been seen in conjunction with Dr. Stokes who agrees with the assessment and plan of care. - Patient Problems (1) GI bleed Current Visit: Yes Status: Suspected (2) Symptomatic anemia Current Visit: Yes Status: Acute (3) Paroxysmal atrial fibrillation with RVR Current Visit: Yes Status: Chronic (4) CAD (coronary artery disease) Current Visit: Yes Status: Chronic Qualifiers: Qualified Code(s): I25.10 - Atherosclerotic heart disease of [place] coronary artery without angina pectoris (5) Stented coronary artery Current Visit: Yes Status: Chronic (6) Hypotension Current Visit: Yes Status: Acute Qualifiers: Qualified Code(s): I95.9 - Hypotension, unspecified (7) Near syncope Current Visit: Yes Status: Acute (8) ESRD on hemodialysis Current Visit: Yes Status: Chronic (9) NSTEMI (non-ST elevation myocardial infarction) Current Visit: Yes Status: Acute Subjective Date of service: 04/16/19 Principal diagnosis: anemia Interval history: pt resting in bed, no current cardiac complaints. at bedside. in SR on telemetry. Objective Last Vital Signs Temp 98.0 F 04/16/19 12:21 Pulse 75 04/16/19 12:21 Resp 18 04/16/19 12:21 BP 118/49 04/16/19 12:21 Pulse Ox 96 04/16/19 12:21 - Physical Examination General: No Apparent Distress HEENT: Positive: PERRL, Normocephaly, Mucus Membranes Moist Neck: Positive: neck supple, trachea midline Cardiac: Positive: Reg Rate and Rhythm, S1/S2 Lungs: Positive: Decreased Breath Sounds Neuro: Positive: Grossly Intact Abdomen: Negative: Tender Skin: Negative: Rash, Wound Musculoskeletal: No Pain Extremities: Absent: edema - Labs and Meds CBC 04/16/19 Range/Units 05:14 WBC 5.6 (4.5-11.0) K/mm3 RBC 3.21 L (3.65-5.03) M/mm3 Hgb 9.7 L (11.8-15.2) gm/dl Hct 28.1 L (35.5-45.6) % Plt Count 93 L (140-440) K/mm3 Lymph # 0.8 L (1.2-5.4) K/mm3 [place] # 0.6 (0.0-0.8) K/mm3 Eos # 0.2 (0.0-0.4) K/mm3 Baso # 0.0 (0.0-0.1) K/mm3 Comprehensive Metabolic Panel 04/16/19 Range/Units 05:14 Sodium 138 (137-145) mmol/L Potassium 3.9 (3.6-5.0) mmol/L Chloride 96.6 L (98-107) mmol/L Carbon Dioxide 27 (22-30) mmol/L BUN 36 H (9-20) mg/dL Creatinine 5.2 H (0.8-1.5) mg/dL Glucose 96 (75-100) mg/dL Calcium 7.6 L (8.4-10.2) mg/dL - Imaging and Cardiology EKG: report reviewed, image reviewed Echo: report reviewed (05/2018 showed EF 50-55%, impaired relaxation, minimal MR, mild TR, mild VA. ) Cardiac cath: report reviewed (08/2018 showed patent stents in the prox and mid LAD and mid distal circ, tight lesion in a fairly large marginal branch at the ostium which appears mild to mod calcified and tight. Lexiscan MPI stress done following LHC in 08/2018 to eval for ischemic burden showed no evidence of sig ischemia, ef-50%. ) - EKG Sinus rhythms and dysrhythmias: sinus rhythm
--- NOTE | 2019-04-16 12:29 | Progress Note ---
Assessment and Plan Assessment and plan: Left upper extremity edema. Check Doppler studies rule out DVT. Acute GI bleed. 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 GI with no plans to repeat EGD unless bleeding reoccurs. if no further bleeding and H/H stable in am, patient okay to be d/c per GI standpoint with f/u in clinic Symptomatic anemia. Continue to monitor H&H and transfuse for hemoglobin less than 7. Paroxysmal atrial fibrillation. Per GI team, recommendation is to d/c ASA and resume Eliquis if recommended per cardiology and monitor and hold for active signs of bleeding. Continue amiodarone. ESRD on HD. Continue M/W/F hemodialysis per nephrology Debility. PT/OT evaluation. Hyperlipidemia. Continue pravastatin. COPD. compensated. CAD s/p coronary stent 3. Cardiology following. Hypertension. Continue antihypertensive medications. History of gout Disposition. Patient will be transferred to the floor. History Interval history: Patient is 78-year-old -[place]el[place] male with history of COPD, coronary artery disease status post stent 3, paroxysmal atrial fibrillation, was on Eliquis, hyperlipidemia, ESRD on hemodialysis M/W/F, and hypertension. He presented to Emergency Department with complaints of hypotension and generalized weakness. Patient was found to be profoundly anemic with hemoglobin of 5.6. He was hypotensive with blood pressure of 87/43. He was given iv fluids admitted. He was initially transfused 2 Units PRBC, remained anemic, transfused additional 2 Units. After 4 Units Hgb only 4.9 so ordered 3 units PRBC today 04/13. He is followed by GI and Nephrology. GI Physician had planned for EGD today. On 04/12/19 a code met called for syncope that resolve with a second episosde of syncope during dialysis. Also Troponin slightly elevated, Cardiology consulted, he was started on Amiodrone. Patient was transferred to ICU. 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 No varices noted in the stomach or softness. Hospitalist Physical - Constitutional Vitals: Temp Pulse Resp BP Pulse Ox 98.0 F 75 18 118/49 96 04/16/19 12:21 04/16/19 12:21 04/16/19 12:21 04/16/19 12:21 04/16/19 12:21 General appearance: Present: no acute distress - EENT Eyes: Present: PERRL, EOM intact ENT: hearing intact, clear oral mucosa, dentition normal - Neck Neck: Present: supple, normal ROM - Respiratory Respiratory effort: normal Respiratory: bilateral: CTA - Cardiovascular Rhythm: regular Heart Sounds: Present: S1 & S2. Absent: gallop, rub - Extremities Extremities: no ischemia, No edema, Full ROM - Abdominal General gastrointestinal: soft, non-tender, non-distended, normal bowel sounds - Integumentary Integumentary: Present: clear, warm, dry - Neurologic Neurologic: CNII-XII intact, moves all extremities Results - Labs CBC & Chem 7: 04/16/19 05:14 04/16/19 05:14 Labs: Laboratory Last Values WBC 5.6 K/mm3 (4.5-11.0) 04/16/19 05:14 RBC 3.21 M/mm3 (3.65-5.03) L 04/16/19 05:14 Hgb 9.7 gm/dl (11.8-15.2) L 04/16/19 05:14 Hct 28.1 % (35.5-45.6) L 04/16/19 05:14 MCV 87 fl (84-94) 04/16/19 05:14 MCH 30 pg (28-32) 04/16/19 05:14 MCHC 34 % (32-34) 04/16/19 05:14 RDW 17.2 % (13.2-15.2) H 04/16/19 05:14 Plt Count 93 K/mm3 (140-440) L 04/16/19 05:14 Lymph % (Auto) 14.9 % (13.4-35.0) 04/16/19 05:14 [place] % (Auto) 11.5 % (0.0-7.3) H 04/16/19 05:14 Eos % (Auto) 3.5 % (0.0-4.3) 04/16/19 05:14 Baso % (Auto) 0.7 % (0.0-1.8) 04/16/19 05:14 Lymph # 0.8 K/mm3 (1.2-5.4) L 04/16/19 05:14 [place] # 0.6 K/mm3 (0.0-0.8) 04/16/19 05:14 Eos # 0.2 K/mm3 (0.0-0.4) 04/16/19 05:14 Baso # 0.0 K/mm3 (0.0-0.1) 04/16/19 05:14 Seg Neutrophils % 69.4 % (40.0-70.0) 04/16/19 05:14 Seg Neutrophils # 3.9 K/mm3 (1.8-7.7) 04/16/19 05:14 PT 17.9 Sec. (12.2-14.9) H 04/10/19 21:02 INR 1.38 (0.87-1.13) H 04/10/19 21:02 Sodium 138 mmol/L (137-145) 04/16/19 05:14 Potassium 3.9 mmol/L (3.6-5.0) 04/16/19 05:14 Chloride 96.6 mmol/L (98-107) L 04/16/19 05:14 Carbon Dioxide 27 mmol/L (22-30) 04/16/19 05:14 18 mmol/L 04/16/19 05:14 BUN 36 mg/dL (9-20) H 04/16/19 05:14 5.2 mg/dL (0.8-1.5) H 04/16/19 05:14 Estimated GFR 13 ml/min 04/16/19 05:14 7 % 04/16/19 05:14 Glucose 96 mg/dL (75-100) 04/16/19 05:14 POC Glucose 141 (70-105) H 04/12/19 23:16 Lactic Acid 1.50 mmol/L (0.7-2.0) 04/10/19 17:29 Calcium 7.6 mg/dL (8.4-10.2) L 04/16/19 05:14 Iron 62 ug/dL (49-181) 04/10/19 20:43 Iron 63 ug/dL (49-181) 04/10/19 20:43 TIBC 168 mcg/dL (250-450) L 04/10/19 20:43 TIBC 176 mcg/dL (250-450) L 04/10/19 20:43 % Saturation 37.50 % 04/10/19 20:43 154 mg/dl (180-329) L 04/10/19 20:43 855.7 ng/mL (13.0-400.0) H 04/11/19 10:43 < 0.20 mg/dL (0.1-1.2) 04/10/19 17:29 AST 11 units/L (5-40) 04/10/19 17:29 ALT 11 units/L (7-56) 04/10/19 17:29 33 units/L (35-129) L 04/10/19 17:29 106 units/L (55-170) 04/12/19 23:39 CK-MB (CK-2) 3.3 ng/mL (0.0-4.0) 04/12/19 23:39 CK-MB (CK-2) Rel Index 3.1 (0-4) 04/12/19 23:39 0.120 ng/mL (0.00-0.029) H* 04/13/19 05:58 5.6 g/dL (6.3-8.2) L 04/10/19 17:29 3.0 g/dL (3.9-5) L 04/10/19 17:29 1.2 % 04/10/19 17:29 Triglycerides 307 mg/dL (2-149) H 04/10/19 17:29 Cholesterol 135 mg/dL (50-199) 04/10/19 17:29 64 mg/dL (50-130) 04/10/19 17:29 29 mg/dL (40-59) L 04/10/19 17:29 4.65 % 04/10/19 17:29 Vitamin B12 298.4 pg/mL (211-911) 04/10/19 20:43 RBC Folic Acid >1000 ng/mL (>280) 04/10/19 20:43 Hepatitis A IgM Ab Non-reactive (NonReactive) 04/11/19 18:11 Hep Bs Antigen Non-reactive (Negative) 04/11/19 18:11 Hep B Core IgM Ab Non-reactive (NonReactive) 04/11/19 18:11 Non-reactive (NonReactive) 06/08/19 18:11 Blood Type A POSITIVE 04/15/19 10:31 Antibody Screen Negative 04/15/19 10:31 Crossmatch See Detail 04/15/19 10:31 Active Medications - Current Medications Current Medications: Generic Name Dose Route Start Last Admin Trade Name Freq PRN Reason Stop Dose Admin Acetaminophen 650 mg 04/10/19 20:29 04/12/19 20:09 Tylenol PO 650 mg Q4H PRN Administration Pain MILD(1-3)/Fever >100.5/STOLL Albuterol 2.5 mg 04/10/19 20:29 Proventil IH Q3HRT PRN Shortness Of Breath Amiodarone HCl 100 mg 04/15/19 13:00 04/16/19 09:43 Cordarone PO 100 mg DAILY DARNELL Administration Apixaban 5 mg 04/15/19 22:00 04/16/19 09:44 Eliquis PO 5 mg Q12HR DARNELL Administration Protocol Budesonide 0.5 mg 04/10/19 20:30 04/16/19 07:44 Pulmicort IH 0.5 mg Q12HRT DARNELL Administration Docusate Sodium 100 mg 04/10/19 22:00 04/16/19 09:45 Colace PO 100 mg BID DARNELL Administration Sodium Chloride 100 mls @ 999 mls/hr 04/12/19 17:12 Nacl 0.9% IV LIZANDRO PRN Hypotension Ipratropium [place] 0.5 mg 04/11/19 20:00 04/16/19 07:44 Atrovent IH 0.5 mg BIDRT DARNELL Administration Isosorbide Mononitrate 30 mg 04/16/19 10:00 04/16/19 09:45 Imdur PO 30 mg QDAY DARNELL Administration Metoclopramide HCl 5 mg 04/12/19 23:26 04/15/19 08:57 Reglan IV 5 mg Q6H PRN Administration Nausea And Vomiting Metoprolol Succinate 25 mg 04/15/19 13:00 04/16/19 09:43 Toprol Xl PO 25 mg QDAY DARNELL Administration Ondansetron HCl 4 mg 04/10/19 20:29 04/12/19 09:28 Zofran IV 4 mg Q8H PRN Administration Nausea And Vomiting Pantoprazole Sodium 40 mg 04/15/19 11:00 04/16/19 09:44 Protonix PO 40 mg BID DARNELL Administration Polyethylene Glycol 17 gm 04/16/19 12:00 Miralax 3350 PO QDAY DARNELL Pravastatin Sodium 40 mg 04/11/19 22:00 04/15/19 22:13 Pravachol PO 40 mg QHS DARNELL Administration Sodium Chloride 10 ml 04/10/19 22:00 04/16/19 09:45 Sodium Chloride Flush Syringe 10 Ml IV 10 ml BID DARNELL Administration Sodium Chloride 10 ml 04/10/19 20:29 Sodium Chloride Flush Syringe 10 Ml IV PRN PRN LINE FLUSH
--- NOTE | 2019-04-16 14:24 | Vascular Lab Report ---
PROCEDURE: VL VENOUS DUPLEX UE LT TECHNIQUE: Grayscale, color flow and spectral waveform images were obtained of left upper extremity. HISTORY: LUE swelling COMPARISON: None FINDINGS: There is no deep or superficial venous thrombosis seen in the left upper extremity. Flow is demonstrated by color flow and spectral waveform imaging. There is appropriate wall compression and augmentation. Left sided arteriovenous fistula is patent IMPRESSION: No no deep or superficial thrombus seen in left upper extremity. This document is electronically signed by Bharti Hannah MD., April 16 2019 02:22:21 PM ET
[2019-04-16] MEDS: MIRALAX 3350 PO SCH (14:36)
--- NOTE | 2019-04-16 17:03 | Progress Note ---
Subjective Principal diagnosis: anemia Interval history: Patient was seen today for follow-up, on many renal related issues, around 9:30 in the morning Patient currently denies having any symptoms of chest pain pressure shortness of breath Better aware about renal related issues Interdisciplinary notes were reviewed Vitals labs intake and output medications were reviewed from today Allergies: Reviewed Social history: Reviewed Family history: Reviewed Physical examination HEENT: Oral mucosa moist no pharyngeal erythema Neck: Supple no JVD Chest: Clear to auscultation no crackles rales or wheezes Heart: Regular rate and rhythm S1-S2 heard no S3-S4 Abdomen: Soft nontender no renal bruit no CVA tenderness no suprapubic fullness Extremity: Mild edema dry skin no peripheral cyanosis pulses palpable Neurological: Alert awake Musculoskeletal: No joint effusion noted Assessment and plan End-stage renal disease: Patient will continue with hemodialysis 3 times a weeks, patient has been tolerating hemodialysis treatment fairly well continue with hemodialysis Saturday and Saturday Hypertension appears to be well controlled Anemia: Improving post packed red blood cell transfusion current hemoglobin 9.7 Declining platelet count needs to be monitored currently around 93,000 From dialysis standpoint his potassium is 3.9B 136 creatinine 5.2 calcium is 7.6 some decline due to packed red blood cell transfusion we'll give him calcium tablets On [facility] history of coronary artery disease Malnutrition risk: High patient is to be maintained on high protein diet, probably 1.5 g protein per KG body weight Hypertension and volume: Goal systolic blood pressure currently less than 140 systolic at this time, diet plan was discussed with patient all questions were answered advised to maintain fluid restriction stated high-protein diet sodium restriction daily weight monitoring daily blood pressure monitoring was discussed with patient Dialysis access: Currently seems to be working well no acute issues Patient was adequately counseled and educated in regard to all dialysis related issues Diet plan and current labs are also discussed We'll continue to follow and make recommendation from renal standpoint case was also discussed with patient's at length adequately counseled and educated Labs were discussed with patient explained and simple [place] does have good understanding off renal related issues, Will continue to follow and make recommendation from renal standpoint Objective - Vital Signs Vital signs: Vital Signs - 12hr 04/16/19 04/16/19 04/16/19 07:44 08:31 09:43 Temperature 98.3 F Pulse Rate 78 79 Pulse Rate [ Apical] Pulse Rate [ Left Dorsalis Pedis] Pulse Rate [ Left Radial] Pulse Rate [ 72 Posterior Bilateral Throughout] Pulse Rate [ Right Dorsalis Pedis] Pulse Rate [ Right Radial] Respiratory 18 Rate Respiratory 19 Rate [Posterior Bilateral Throughout] Blood Pressure 163/59 146/69 O2 Sat by Pulse 94 Oximetry 04/16/19 04/16/19 04/16/19 09:44 09:45 10:00 Temperature Pulse Rate 80 79 72 Pulse Rate [ Apical] Pulse Rate [ Left Dorsalis Pedis] Pulse Rate [ Left Radial] Pulse Rate [ Posterior Bilateral Throughout] Pulse Rate [ Right Dorsalis Pedis] Pulse Rate [ Right Radial] Respiratory Rate Respiratory Rate [Posterior Bilateral Throughout] Blood Pressure 146/69 146/69 O2 Sat by Pulse 96 Oximetry 04/16/19 04/16/19 04/16/19 11:32 12:21 15:50 Temperature 98.0 F 97.9 F Pulse Rate 75 76 Pulse Rate [ 76 Apical] Pulse Rate [ 76 Left Dorsalis Pedis] Pulse Rate [ 76 Left Radial] Pulse Rate [ Posterior Bilateral Throughout] Pulse Rate [ 76 Right Dorsalis Pedis] Pulse Rate [ 76 Right Radial] Respiratory 19 18 18 Rate Respiratory Rate [Posterior Bilateral Throughout] Blood Pressure 118/49 116/49 O2 Sat by Pulse 98 96 93 Oximetry - Lab 04/16/19 05:14 04/16/19 05:14 Most recent lab results Calcium 7.6 mg/dL (8.4-10.2) L 04/16/19 05:14 Medications & Allergies - Medications Allergies/Adverse Reactions: Allergies atorvastatin calcium [From Lipitor] Allergy (Mild, Verified 11/20/17 13:39) Unknown ACHES ciprofloxacin [From Cipro] Allergy (Mild, Verified 11/20/17 13:39) Bleeding NOSE BLEED ciprofloxacin HCl [From Cipro] Allergy (Mild, Verified 11/20/17 13:39) Bleeding NOSE BLEED simvastatin Allergy (Mild, Verified 11/20/17 13:39) Unknown ACHES Home Medications: Home Medications Medication Instructions Recorded Confirmed Last Taken Type Albuterol Sulfate [Proair 90 mcg IH QID PRN 08/28/18 04/10/19 08/26/18 History Respiclick] Aspirin [Aspirin BABY CHEW TAB] 81 mg PO QDAY 08/28/18 04/10/19 08/26/18 History Lanthanum Carbonate [Fosrenol] 2,000 mg PO TID 08/28/18 04/10/19 08/26/18 History NIFEdipine [Adalat cc] 60 mg PO BID 08/28/18 04/10/19 08/26/18 History Rosuvastatin Calcium [Crestor] 5 mg PO DAILY 08/28/18 04/10/19 08/26/18 History Sodium Bicarbonate 650 mg PO BID 08/28/18 04/10/19 08/26/18 History Terazosin HCl 10 mg PO HS 08/28/18 04/10/19 08/26/18 History Tiotropium [Spiriva] 2 puff DAILY 08/28/18 04/10/19 08/26/18 History Amiodarone HCl [Amiodarone 100 MG 100 mg PO DAILY 04/10/19 04/10/19 Unknown History TAB] Apixaban [Eliquis] 5 mg PO Q12H 04/10/19 04/10/19 Unknown History Metoprolol Xl [Metoprolol 50 mg PO DAILY 04/10/19 04/10/19 Unknown History SUCCINATE ER TAB] Active Medications: Generic Name Dose Route Start Last Admin Trade Name Freq PRN Reason Stop Dose Admin Acetaminophen 650 mg 04/10/19 20:29 04/12/19 20:09 Tylenol PO 650 mg Q4H PRN Administration Pain MILD(1-3)/Fever >100.5/STOLL Albuterol 2.5 mg 04/10/19 20:29 Proventil IH Q3HRT PRN Shortness Of Breath Amiodarone HCl 100 mg 04/15/19 13:00 04/16/19 09:43 Cordarone PO 100 mg DAILY DARNELL Administration Apixaban 5 mg 04/15/19 22:00 04/16/19 09:44 Eliquis PO 5 mg Q12HR DARNELL Administration Protocol Budesonide 0.5 mg 04/10/19 20:30 04/16/19 07:44 Pulmicort IH 0.5 mg Q12HRT DARNELL Administration Docusate Sodium 100 mg 04/10/19 22:00 04/16/19 09:45 Colace PO 100 mg BID DARNELL Administration Sodium Chloride 100 mls @ 999 mls/hr 04/12/19 17:12 Nacl 0.9% IV LIZANDRO PRN Hypotension Ipratropium [place] 0.5 mg 04/11/19 20:00 04/16/19 07:44 Atrovent IH 0.5 mg BIDRT DARNELL Administration Isosorbide Mononitrate 30 mg 04/16/19 10:00 04/16/19 09:45 Imdur PO 30 mg QDAY DARNELL Administration Metoclopramide HCl 5 mg 04/12/19 23:26 04/15/19 08:57 Reglan IV 5 mg Q6H PRN Administration Nausea And Vomiting Metoprolol Succinate 25 mg 04/15/19 13:00 04/16/19 09:43 Toprol Xl PO 25 mg QDAY DARNELL Administration Ondansetron HCl 4 mg 04/10/19 20:29 04/12/19 09:28 Zofran IV 4 mg Q8H PRN Administration Nausea And Vomiting Pantoprazole Sodium 40 mg 04/15/19 11:00 04/16/19 09:44 Protonix PO 40 mg BID DARNELL Administration Polyethylene Glycol 17 gm 04/16/19 12:00 04/16/19 14:36 Miralax 3350 PO 17 gm QDAY DARNELL Administration Pravastatin Sodium 40 mg 04/11/19 22:00 04/15/19 22:13 Pravachol PO 40 mg QHS DARNELL Administration Sodium Chloride 10 ml 04/10/19 22:00 04/16/19 09:45 Sodium Chloride Flush Syringe 10 Ml IV 10 ml BID DARNELL Administration Sodium Chloride 10 ml 04/10/19 20:29 Sodium Chloride Flush Syringe 10 Ml IV PRN PRN LINE FLUSH
[2019-04-16] MEDS: TUMS PO SCH (21:35)
[2019-04-16] MEDS: PRAVACHOL PO SCH (21:35)
--- NOTE | 2019-04-17 07:36 | Hem/Onc Progress Note ---
Assessment and Plan 1. Normocytic anemia, history of dark stools, GI consultation. 2. Anemia, may be multifactorial. The patient's anemia and end-stage renal disease, he will also get iron and erythropoietin support with dialysis. 3. Thrombocytopenia, likely secondary to consumption. 4. The patient was on anticoagulation with Eliquis and also was on aspirin for cardiac issues. 5. History of hyperlipidemia. 6. History of chronic obstructive pulmonary disease. 7. History of coronary artery disease. 8. History of end-stage renal disease, on dialysis. 9. History of hypertension. 10. History of gout. 11. Transfusion support. 12. Deficiency investigation. I will follow the patient during inpatient stay Serum iron is 63. Ferritin is 855, B12 is 298. Folate is 10. 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, and gastritis will follow hb s/p prbc - Patient Problems (1) Anemia Status: Acute Qualifiers: Anemia type: unspecified type Qualified Code(s): D64.9 - Anemia, unspecified Subjective Date of service: 04/17/19 Principal diagnosis: anemia Interval history: feeling better Objective - Exam Narrative Exam: Pain none General appearance no acute distress Performance status limited selfcare Eyes EOM intact ENT hearing intact/ Clear oral mucosa LNs cervical not palpable Neck normal ROM Respiratory Normal Breath sounds - CTA CVS S1 S2 + Extremities normal temperature General GI Soft non tender Rectal deferred Male - deferred Skin warm Musculoskeletal generalized weakness/ strength equal bilaterally Neurologically no Focal deficit/ moves all extremities - Constitutional Vitals: Last Vital Signs Temp 98.3 F 04/17/19 03:53 Pulse 76 04/17/19 03:53 Resp 04/17/19 03:53 BP 148/60 04/17/19 03:53 Pulse Ox 95 04/17/19 03:53 Medications & Allergies - Medications Allergies/Adverse Reactions: Allergies atorvastatin calcium [From Lipitor] Allergy (Mild, Verified 11/20/17 13:39) Unknown ACHES ciprofloxacin [From Cipro] Allergy (Mild, Verified 11/20/17 13:39) Bleeding NOSE BLEED ciprofloxacin HCl [From Cipro] Allergy (Mild, Verified 11/20/17 13:39) Bleeding NOSE BLEED simvastatin Allergy (Mild, Verified 11/20/17 13:39) Unknown ACHES Home Medications: Home Medications Medication Instructions Recorded Confirmed Last Taken Type Lanthanum Carbonate [Fosrenol] 2,000 mg PO TID 08/28/18 04/10/19 08/26/18 History NIFEdipine [Adalat cc] 60 mg PO BID 08/28/18 04/10/19 08/26/18 History Sodium Bicarbonate 650 mg PO BID 08/28/18 04/10/19 08/26/18 History Terazosin HCl 10 mg PO HS 08/28/18 04/10/19 08/26/18 History Tiotropium [Spiriva] 2 puff DAILY 08/28/18 04/10/19 08/26/18 History Amiodarone HCl [Amiodarone 100 MG 100 mg PO DAILY 04/10/19 04/10/19 Unknown History TAB] Apixaban [Eliquis] 5 mg PO Q12H 04/10/19 04/10/19 Unknown History Metoprolol Xl [Metoprolol 50 mg PO DAILY 04/10/19 04/10/19 Unknown History SUCCINATE ER TAB] Albuterol Sulfate [Proair 90 mcg IH QID PRN 30 Days 04/17/19 Unknown Rx Respiclick] [email or web address] Amiodarone [Cordarone 200 MG TAB] 100 mg PO DAILY #30 tablet 04/17/19 Unknown Rx Apixaban [Eliquis] 5 mg PO Q12HR #60 tablet 04/17/19 Unknown Rx Budesonide [Pulmicort Respules] 0.5 mg IH Q12HRT nebu 04/17/19 Unknown Rx Calcium Carbonate [Tums 500MG CHEW] 500 mg PO BID #60 tablet 04/17/19 Unknown Rx ISOSORBIDE MONOnitrate [Imdur ER] 30 mg PO QDAY #30 tablet 04/17/19 Unknown Rx Ipratropium [Atrovent NEB] 0.5 mg IH BIDRT nebu 04/17/19 Unknown Rx Metoprolol Xl [Metoprolol 25 mg PO QDAY #30 tablet 04/17/19 Unknown Rx SUCCINATE ER TAB] Pantoprazole [Protonix TAB] 40 mg PO BID #60 tablet 04/17/19 Unknown Rx Pravastatin [Pravachol] 40 mg PO QHS #30 tablet 04/17/19 Unknown Rx Active Medications: Generic Name Dose Route Start Last Admin Trade Name Freq PRN Reason Stop Dose Admin Acetaminophen 650 mg 04/10/19 20:29 04/12/19 20:09 Tylenol PO 650 mg Q4H PRN Administration Pain MILD(1-3)/Fever >100.5/STOLL Albuterol 2.5 mg 04/10/19 20:29 Proventil IH Q3HRT PRN Shortness Of Breath Amiodarone HCl 100 mg 04/15/19 13:00 04/16/19 09:43 Cordarone PO 100 mg DAILY DARNELL Administration Apixaban 5 mg 04/15/19 22:00 04/16/19 21:36 Eliquis PO 5 mg Q12HR DARNELL Administration Protocol Budesonide 0.5 mg 04/10/19 20:30 04/16/19 20:54 Pulmicort IH 0.5 mg Q12HRT DARNELL Administration Calcium Carbonate/Glycine 500 mg 04/16/19 22:00 04/16/19 21:35 Tums PO 500 mg BID DARNELL Administration Docusate Sodium 100 mg 04/10/19 22:00 04/16/19 21:35 Colace PO 100 mg BID DARNELL Administration Sodium Chloride 100 mls @ 999 mls/hr 04/12/19 17:12 Nacl 0.9% IV LIZANDRO PRN Hypotension Ipratropium [place] 0.5 mg 04/11/19 20:00 04/16/19 20:54 Atrovent IH 0.5 mg BIDRT DARNELL Administration Isosorbide Mononitrate 30 mg 04/16/19 10:00 04/16/19 09:45 Imdur PO 30 mg QDAY DARNELL Administration Metoclopramide HCl 5 mg 04/12/19 23:26 04/15/19 08:57 Reglan IV 5 mg Q6H PRN Administration Nausea And Vomiting Metoprolol Succinate 25 mg 04/15/19 13:00 04/16/19 09:43 Toprol Xl PO 25 mg QDAY DARNELL Administration Ondansetron HCl 4 mg 04/10/19 20:29 04/12/19 09:28 Zofran IV 4 mg Q8H PRN Administration Nausea And Vomiting Pantoprazole Sodium 40 mg 04/15/19 11:00 04/16/19 21:35 Protonix PO 40 mg BID DARNELL Administration Polyethylene Glycol 17 gm 04/16/19 12:00 04/16/19 14:36 Miralax 3350 PO 17 gm QDAY DARNELL Administration Pravastatin Sodium 40 mg 04/11/19 22:00 04/16/19 21:35 Pravachol PO 40 mg QHS DARNELL Administration Sodium Chloride 10 ml 04/10/19 22:00 04/16/19 21:36 Sodium Chloride Flush Syringe 10 Ml IV 10 ml BID DARNELL Administration Sodium Chloride 10 ml 04/10/19 20:29 Sodium Chloride Flush Syringe 10 Ml IV PRN PRN LINE FLUSH
[2019-04-17 08:12] LABS: Basophils % (Auto) 0.8 % (0.0-1.8); Eosinophils # (Auto) 0.2 K/mm3 (0.0-0.4); Eosinophils % (Auto) 3.8 % (0.0-4.3); Hematocrit 28.7 % (35.5-45.6); Hemoglobin 9.9 gm/dl (11.8-15.2); Lymphocytes % (Auto) 19.1 % (13.4-35.0); Mean Corpuscular HGB Conc 34 % (32-34); Mean Corpuscular Volume 86 fl (84-94); Monocytes # (Auto) 0.5 K/mm3 (0.0-0.8); Monocytes % (Auto) 10.3 % (0.0-7.3); Platelet Count 112 K/mm3 (140-440); Red Blood Count 3.35 M/mm3 (3.65-5.03); Red Cell Distribution Width 17.3 % (13.2-15.2)
[2019-04-17] MEDS: ATROVENT IH SCH (08:22)
[2019-04-17] MEDS: PULMICORT IH SCH (08:22)
--- NOTE | 2019-04-17 08:57 | Progress Note ---
Subjective Principal diagnosis: anemia Interval history: Patient was seen today for follow-up, on many renal related issues Tolerating dialysis fairly well Multiple health issues, interdisciplinary Notes reviewed Vitals labs intake and output medications were reviewed from today Allergies: Reviewed Social history: Reviewed Family history: Reviewed Physical examination HEENT: Oral mucosa moist no pharyngeal erythema Neck: Supple no JVD Chest: Clear to auscultation no crackles rales or wheezes Heart: Regular rate and rhythm S1-S2 heard no S3-S4 Abdomen: Soft nontender no renal bruit no CVA tenderness no suprapubic fullness Extremity: Mild edema dry skin no peripheral cyanosis pulses palpable Neurological: Alert awake Musculoskeletal: No joint effusion noted Assessment and plan End-stage renal disease: Patient will continue with hemodialysis 3 times a weeks No acute issues noted on hemodialysis discussed with patient Anemia in end-stage renal disease complicated by GI bleed being followed by cardiology and gastroenterology patient was on anticoagulation Dialysis access: Working well Due to end-stage renal disease prognosis guarded Dietary counseling education was done for end-stage renal disease On chronic anticoagulation for cardiology 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, history of coronary artery disease Malnutrition risk: High patient is to be maintained on high protein diet, probably 1.5 g protein per KG body weight hemodialysis ultrafiltration as tolerated Will continue to follow and make recommendation from renal standpoint Objective - Vital Signs Vital signs: Vital Signs - 12hr 04/16/19 04/16/19 04/16/19 20:58 21:06 23:15 Temperature 98.5 F Pulse Rate 79 Pulse Rate [ 58 L Posterior Bilateral Throughout] Respiratory 18 Rate Respiratory 20 Rate [Posterior Bilateral Throughout] Blood Pressure 142/67 O2 Sat by Pulse 94 94 Oximetry 04/17/19 04/17/19 02:31 03:53 Temperature 98.3 F Pulse Rate 75 76 Pulse Rate [ Posterior Bilateral Throughout] Respiratory 17 Rate Respiratory Rate [Posterior Bilateral Throughout] Blood Pressure 148/60 O2 Sat by Pulse 95 Oximetry - Lab 04/17/19 07:48 04/16/19 05:14 Most recent lab results Calcium 7.6 mg/dL (8.4-10.2) L 04/16/19 05:14 Medications & Allergies - Medications Allergies/Adverse Reactions: Allergies atorvastatin calcium [From Lipitor] Allergy (Mild, Verified 11/20/17 13:39) Unknown ACHES ciprofloxacin [From Cipro] Allergy (Mild, Verified 11/20/17 13:39) Bleeding NOSE BLEED ciprofloxacin HCl [From Cipro] Allergy (Mild, Verified 11/20/17 13:39) Bleeding NOSE BLEED simvastatin Allergy (Mild, Verified 11/20/17 13:39) Unknown ACHES Home Medications: Home Medications Medication Instructions Recorded Confirmed Last Taken Type Lanthanum Carbonate [Fosrenol] 2,000 mg PO TID 08/28/18 04/10/19 08/26/18 History NIFEdipine [Adalat cc] 60 mg PO BID 08/28/18 04/10/19 08/26/18 History Sodium Bicarbonate 650 mg PO BID 08/28/18 04/10/19 08/26/18 History Terazosin HCl 10 mg PO HS 08/28/18 04/10/19 08/26/18 History Tiotropium [Spiriva] 2 puff DAILY 08/28/18 04/10/19 08/26/18 History Amiodarone HCl [Amiodarone 100 MG 100 mg PO DAILY 04/10/19 04/10/19 Unknown Hist ory TAB] Apixaban [Eliquis] 5 mg PO Q12H 04/10/19 04/10/19 Unknown History Metoprolol Xl [Metoprolol 50 mg PO DAILY 04/10/19 04/10/19 Unknown History SUCCINATE ER TAB] Albuterol Sulfate [Proair 90 mcg IH QID PRN 30 Days 04/17/19 Unknown Rx Respiclick] [email or web address] Amiodarone [Cordarone 200 MG TAB] 100 mg PO DAILY #30 tablet 04/17/19 Unknown Rx Apixaban [Eliquis] 5 mg PO Q12HR #60 tablet 04/17/19 Unknown Rx Budesonide [Pulmicort Respules] 0.5 mg IH Q12HRT nebu 04/17/19 Unknown Rx Calcium Carbonate [Tums 500MG CHEW] 500 mg PO BID #60 tablet 04/17/19 Unknown Rx ISOSORBIDE MONOnitrate [Imdur ER] 30 mg PO QDAY #30 tablet 04/17/19 Unknown Rx Ipratropium [Atrovent NEB] 0.5 mg IH BIDRT nebu 04/17/19 Unknown Rx Metoprolol Xl [Metoprolol 25 mg PO QDAY #30 tablet 04/17/19 Unknown Rx SUCCINATE ER TAB] Pantoprazole [Protonix TAB] 40 mg PO BID #60 tablet 04/17/19 Unknown Rx Pravastatin [Pravachol] 40 mg PO QHS #30 tablet 04/17/19 Unknown Rx Active Medications: Generic Name Dose Route Start Last Admin Trade Name Freq PRN Reason Stop Dose Admin Acetaminophen 650 mg 04/10/19 20:29 04/12/19 20:09 Tylenol PO 650 mg Q4H PRN Administration Pain MILD(1-3)/Fever >100.5/STOLL Albuterol 2.5 mg 04/10/19 20:29 Proventil IH Q3HRT PRN Shortness Of Breath Amiodarone HCl 100 mg 04/15/19 13:00 04/16/19 09:43 Cordarone PO 100 mg DAILY DARNELL Administration Apixaban 5 mg 04/15/19 22:00 04/16/19 21:36 Eliquis PO 5 mg Q12HR DARNELL Administration Protocol Budesonide 0.5 mg 04/10/19 20:30 04/17/19 08:22 Pulmicort IH 0.5 mg Q12HRT DARNELL Administration Calcium Carbonate/Glycine 500 mg 04/16/19 22:00 04/16/19 21:35 Tums PO 500 mg BID DARNELL Administration Docusate Sodium 100 mg 04/10/19 22:00 04/16/19 21:35 Colace PO 100 mg BID DARNELL Administration Sodium Chloride 100 mls @ 999 mls/hr 04/12/19 17:12 Nacl 0.9% IV LIZANDRO PRN Hypotension Ipratropium [place] 0.5 mg 04/11/19 20:00 04/17/19 08:22 Atrovent IH 0.5 mg BIDRT DARNELL Administration Isosorbide Mononitrate 30 mg 04/16/19 10:00 04/16/19 09:45 Imdur PO 30 mg QDAY DARNELL Administration Metoclopramide HCl 5 mg 04/12/19 23:26 04/15/19 08:57 Reglan IV 5 mg Q6H PRN Administration Nausea And Vomiting Metoprolol Succinate 25 mg 04/15/19 13:00 04/16/19 09:43 Toprol Xl PO 25 mg QDAY DARNELL Administration Ondansetron HCl 4 mg 04/10/19 20:29 04/12/19 09:28 Zofran IV 4 mg Q8H PRN Administration Nausea And Vomiting Pantoprazole Sodium 40 mg 06/12/19 11:00 04/16/19 21:35 Protonix PO 40 mg BID DARNELL Administration Polyethylene Glycol 17 gm 04/16/19 12:00 04/16/19 14:36 Miralax 3350 PO 17 gm QDAY DARNELL Administration Pravastatin Sodium 40 mg 04/11/19 22:00 04/16/19 21:35 Pravachol PO 40 mg QHS DARNELL Administration Sodium Chloride 10 ml 04/10/19 22:00 04/16/19 21:36 Sodium Chloride Flush Syringe 10 Ml IV 10 ml BID DARNELL Administration Sodium Chloride 10 ml 04/10/19 20:29 Sodium Chloride Flush Syringe 10 Ml IV PRN PRN LINE FLUSH
[2019-04-17] MEDS ORDERED: NACL 0.9 (PRIMING MACHINE ONLY DIALYSIS) MC ONE (10:42)
--- NOTE | 2019-04-17 11:19 | Discharge Summary ---
Providers - Providers Date of Admission: 04/10/19 20:29 Date of discharge: 04/17/19 Attending physician: JALYN CRUZ 04/10/19 20:31 Consult to Physician [CONS] Routine Comment: Consulting Provider: AMERICA MILTON Physician Instructions: Reason For Exam: ESRD on HD MWF 04/10/19 20:38 Consult to Physician [CONS] Routine Comment: Consulting Provider: KIM BOBBY Physician Instructions: Reason For Exam: Anemia Hgb 5.6, ESRD 04/11/19 08:21 Consult to Physician [CONS] Routine Comment: Consulting Provider: PILAR AVILES Physician Instructions: Reason For Exam: Anemia, history of polyps 04/13/19 01:30 Consult to Physician [CONS] Routine Comment: Consulting Provider: KEZIA CARMONA Physician Instructions: Reason For Exam: new elevation in troponin, history of CAD and CHF 04/13/19 13:33 Consult to Physician [CONS] Routine Comment: Consulting Provider: TON ALFARO Physician Instructions: 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 04/16/19 10:37 Physical Therapy Evaluation and Treat [CONS] Routine Comment: Reason For Exam: dibiliity 04/16/19 10:40 Occupational Therapy Evaluate and Treat [CONS] Routine Comment: Reason For Exam: Dibility [facility] Reason for admission: anemia Condition: Critical Hospital course: Patient is 78-year-old -[place] male with history of COPD, coronary artery disease status post stent 3, paroxysmal atrial fibrillation, was on Eliquis, hyperlipidemia, 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 Patient was found to be profoundly anemic with hemoglobin of 5.6. He was hypotensive with blood pressure of 87/43. He was given iv fluids and admitted. He was initially transfused 2 Units PRBC, remained anemic, transfused additional 2 Units. After 4 Units Hgb only 4.9 so ordered 3 more units PRBC on 04/13. He was followed by GI and Nephrology. GI Physician had planned for EGD. However, On 04/12/19 a code met called for syncope that resolved with a second episode of syncope during dialysis. Also Troponin slightly elevated, Cardiology consulted, he was started on Amiodrone. Patient was transferred to ICU. 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 No varices noted in the stomach or softness. The patient had no further bleeding. Cardiology GI discussed restarting anticoagulation. Recommendations were to d/c ASA and resume Eliquis if recommended per cardiology. Other issues during hospital stay included left upper extremity swelling with Doppler studies that were found to be negative for DVT. Patient is felt to have received maximal hospital benefit and will be discharged home. Dedicated discharge time 33 minutes. Disposition: DC-01 TO HOME OR SELFCARE Time spent for discharge: 33 - Discharge Diagnoses (1) Anemia Status: Acute Qualifiers: Anemia type: unspecified type Qualified Code(s): D64.9 - Anemia, unspecified (2) Elevated troponin Status: Acute (3) Hypotension Status: Acute Qualifiers: Hypotension type: unspecified hypotension type Qualified Code(s): I95.9 - Hypotension, unspecified (4) NSTEMI (non-ST elevation myocardial infarction) Status: Acute (5) Symptomatic anemia Status: Acute (6) CAD (coronary artery disease) Status: Chronic Qualifiers: Coronary Disease-Associated Artery/Lesion type: unspecified vessel or lesion type [place] vs. transplanted heart: [place] heart Associated angina: angina presence unspecified Qualified Code(s): I25.10 - Atherosclerotic heart disease of [place] coronary artery without angina pectoris (7) ESRD on hemodialysis Status: Chronic (8) Paroxysmal atrial fibrillation with RVR Status: Chronic Core Measure Documentation - Palliative Care Palliative Care/ Comfort Measures: Not Applicable - Core Measures Any of the following diagnoses?: acute [place] - Acute [place] Discharge Requirements Aspirin at discharge: No Reason for no aspirin on DC: Bleeding SHAUNA/ARB for LVSD if EF <40%: No Reason for no SHAUNA/ARB: Renal impairment Beta leanna at discharge: Yes Statin for LDL = or >100 mg/dl on DC: Yes Exam - Constitutional Vitals: Temp Pulse Resp BP Pulse Ox 97.2 F L 73 16 141/67 95 04/17/19 09:15 04/17/19 10:00 04/17/19 09:15 04/17/19 10:00 04/17/19 09:15 General appearance: Present: no acute distress, well-nourished - EENT Eyes: Present: PERRL ENT: hearing intact, clear oral mucosa - Neck Neck: Present: supple, normal ROM - Respiratory Respiratory effort: normal Respiratory: bilateral: CTA - Cardiovascular Heart Sounds: Present: S1 & S2. Absent: rub, click - Extremities Extremities: pulses symmetrical, No edema Peripheral Pulses: within normal limits - Abdominal General gastrointestinal: Present: soft, non-tender, non-distended, normal bowel sounds Male genitourinary: Present: normal - Integumentary Integumentary: Present: clear, warm, dry - Musculoskeletal Musculoskeletal: gait normal, strength equal bilaterally - Psychiatric Psychiatric: appropriate mood/affect, intact judgment & insight - Neurologic Neurologic: CNII-XII intact, moves all extremities Plan Activity: no restrictions Weight Bearing Status: Weight Bear as Tolerated Diet: renal Follow up with: EDDI JOTOPSFIELD MD RONNIE [Primary Care Provider] - 3-5 Days SANCHO MAO MD [Staff Physician] - 7 Days HU HUFF MD [Staff Physician] - 7 Days KIM BOBBY MD [Staff Physician] - 7 Days LUPE MILLER MD [Staff Physician] - 7 Days Prescriptions: Amiodarone [Cordarone 200 MG TAB] 100 mg PO DAILY #30 tablet Apixaban [Eliquis] 5 mg PO Q12HR #60 tablet ISOSORBIDE MONOnitrate [Imdur ER] 30 mg PO QDAY #30 tablet Metoprolol Xl [Metoprolol SUCCINATE ER TAB] 25 mg PO QDAY #30 tablet Pravastatin [Pravachol] 40 mg PO QHS #30 tablet Albuterol Sulfate [Proair Respiclick] 90 mcg IH QID PRN 30 Days [email or web address] PRN Reason: Wheezing Pantoprazole [Protonix TAB] 40 mg PO BID #60 tablet Calcium Carbonate [Tums 500MG CHEW] 500 mg PO BID #60 tablet
[2019-04-17] MEDS: COLACE PO SCH (11:35)
[2019-04-17] MEDS: MIRALAX 3350 PO SCH (11:36)
[2019-04-17] MEDS: SODIUM CHLORIDE FLUSH SYRINGE 10 ML IV SCH (11:36)
[2019-04-17] MEDS: PROTONIX PO SCH (11:36)
--- NOTE | 2019-04-17 11:44 | Gastroenterology Progress Note ---
<MARK SHELDON - Last Filed: 04/17/19 12:32> Assessment and Plan 1.anemia 2.melena -H/H 9.9/28.7-stable -continue to monitor H/H and transfer as needed -s/p colonoscopy 12/26/2016 which showed 1 polyp and some diverticulosis -s/p EGD that showed duodenal erosions, few very small AVMs noted in duodenal bulb, and gastritis -bx results negative -etiology-duodenal lesions could be consistent with phosphate binder toxicity/use, and in combination with ASA and Eliquis could lead to clinically significant bleeding; also possible could be small bowel ischemic duodenitis -clinically, patient is stable w/o acute signs of bleeding overnight or this am. Denies abd pain or N/V. Tolerating diet. -no plan to repeat EGD at this time unless overt bleeding develops (would require EGD with small bowel scope) -Eliquis resumed 04/15 -increase Miralax to BID for constipation (no BM yesterday or this am) -continue PPI and supportive care -Patient okay to be d/c per GI standpoint on PPI BID with f/u in clinic ~2 weeks -will sign off, please call if needed Subjective Date of service: 04/17/19 Principal diagnosis: anemia Interval history: No acute distress or GI complaints. No active signs of bleeding overnight or this am. Objective - Constitutional Vitals: Temp Pulse Resp BP Pulse Ox 97.2 F L 73 16 141/67 95 04/17/19 09:15 04/17/19 10:00 04/17/19 09:15 04/17/19 10:00 04/17/19 09:15 General appearance: no acute distress - Respiratory Respiratory effort: normal - Gastrointestinal General gastrointestinal: Present: soft, non-tender, non-distended, normal bowel sounds - Neurologic Neurological: alert and oriented x3 - Labs CBC & Chem 7: 04/17/19 07:48 04/16/19 05:14 Labs: Laboratory Results - last 24 hr 04/17/19 07:48 WBC 5.3 RBC 3.35 L Hgb 9.9 L Hct 28.7 L MCV 86 MCH 29 MCHC 34 RDW 17.3 H Plt Count 112 L Lymph % (Auto) 19.1 [place] % (Auto) 10.3 H Eos % (Auto) 3.8 Baso % (Auto) 0.8 Lymph # 1.0 L [place] # 0.5 Eos # 0.2 Baso # 0.0 Seg Neutrophils % 66.0 Seg Neutrophils # 3.5 <TACHO COSBY R - Last Filed: 04/17/19 15:49> Assessment and Plan Pt stable. Plan as noted. Objective - Constitutional Vitals: Temp Pulse Resp BP Pulse Ox 98.2 F 94 H 18 124/64 99 04/17/19 13:30 04/17/19 15:35 04/17/19 13:30 04/17/19 15:35 04/17/19 11:39 - Labs CBC & Chem 7: 04/17/19 07:48 04/16/19 05:14 Labs: Laboratory Results - last 24 hr 04/17/19 07:48 WBC 5.3 RBC 3.35 L Hgb 9.9 L Hct 28.7 L MCV 86 MCH 29 MCHC 34 RDW 17.3 H Plt Count 112 L Lymph % (Auto) 19.1 [place] % (Auto) 10.3 H Eos % (Auto) 3.8 Baso % (Auto) 0.8 Lymph # 1.0 L [place] # 0.5 Eos # 0.2 Baso # 0.0 Seg Neutrophils % 66.0 Seg Neutrophils # 3.5
--- NOTE | 2019-04-17 14:21 | Progress Note ---
Assessment and Plan Hemorrhagic shock Severe symptomatic anemia Acute GI bleed. NSTEMI-Type 2 , demand ischemia Paroxysmal atrial fibrillation ESRD on HD Debility h/o COPD CAD s/p coronary stent 3 h/o Hypertension - Supportive transfusions to keep HgB> 7 - Continue PPI therapy - Supportive HD as tolerated by hemodynamics - With life threatening bleeding will need to re-evaluate the benefits-risk profile of therapeutic anticoagulation - PT/OT - continue to increase activity and gait stability - Chronic home medications - Bronchodilators (Brovana-Budesonide) - Supplemental oxygen as needed to keep O2 sats>90% - Influenza and pneumonia vaccination per protocol - Discharge planning ongoing concurrently - Continue other care per Attending and other consultants ...... Updated the patient and his re: care plan. .......... re-evaluate in am & prn Subjective Date of service: 04/17/19 Principal diagnosis: Hemorrhagic shock; Severe anemia; Acute GI bleed; NSTEMI; ESRD on HD Interval history: Patient is seen today for: Hemorrhagic shock; Severe symptomatic anemia; Acute GI bleed; NSTEMI-Type 2 , demand ischemia; Paroxysmal atrial fibrillation; ESRD on HD Seen and examined at bedside; 24 hour events reviewed; nursing and respiratory care staff consulted; no adverse overnight events reported to me; resting peacefully in bed; feels better; s/p dialysis; denies acute chest pains or palpitations; no gross bleeding reported and H&H stable Objective Vital Signs - 12hr 04/17/19 04/17/19 04/17/19 02:31 03:53 08:05 Temperature 98.3 F Pulse Rate 75 76 78 Pulse Rate [ Apical] Pulse Rate [ Left Dorsalis Pedis] Pulse Rate [ Right Dorsalis Pedis] Respiratory 17 Rate Blood Pressure 148/60 157/79 O2 Sat by Pulse 95 97 Oximetry O2 Sat by Pulse Oximetry [ Posterior Bilateral Throughout] 04/17/19 04/17/19 04/17/19 09:15 09:25 09:30 Temperature 97.2 F L Pulse Rate 79 69 63 Pulse Rate [ Apical] Pulse Rate [ Left Dorsalis Pedis] Pulse Rate [ Right Dorsalis Pedis] Respiratory 16 Rate Blood Pressure 161/83 163/86 180/79 O2 Sat by Pulse Oximetry O2 Sat by Pulse 95 Oximetry [ Posterior Bilateral Throughout] 04/17/19 04/17/19 04/17/19 09:45 10:00 10:15 Temperature Pulse Rate 65 73 73 Pulse Rate [ Apical] Pulse Rate [ Left Dorsalis Pedis] Pulse Rate [ Right Dorsalis Pedis] Respiratory Rate Blood Pressure 175/74 141/67 163/75 O2 Sat by Pulse Oximetry O2 Sat by Pulse Oximetry [ Posterior Bilateral Throughout] 04/17/19 04/17/19 04/17/19 10:30 10:45 11:00 Temperature Pulse Rate 64 54 L 70 Pulse Rate [ Apical] Pulse Rate [ Left Dorsalis Pedis] Pulse Rate [ Right Dorsalis Pedis] Respiratory Rate Blood Pressure 154/83 153/58 164/54 O2 Sat by Pulse Oximetry O2 Sat by Pulse Oximetry [ Posterior Bilateral Throughout] 04/17/19 04/17/19 04/17/19 11:15 11:30 11:39 Temperature Pulse Rate 67 69 Pulse Rate [ 76 Apical] Pulse Rate [ 76 Left Dorsalis Pedis] Pulse Rate [ 76 Right Dorsalis Pedis] Respiratory 19 Rate Blood Pressure 147/80 146/101 O2 Sat by Pulse 99 Oximetry O2 Sat by Pulse Oximetry [ Posterior Bilateral Throughout] Constitutional: no acute distress Eyes: non-icteric, other ENT: oropharynx moist, other (Mallampati scopre 3/4) Neck: supple, no lymphadenopathy, no JVD Effort: normal Ascultation: Bilateral: diminished breath sounds, rhonchi (bases; scant), other (prolonged exp phase) Percussion: Bilateral: not dull Cardiovascular: irregular rhythm Gastrointestinal: normoactive bowel sounds, soft, non-tender, non-distended Integumentary: normal Extremities: no cyanosis, no edema, pulses normal, no ischemia or petechiae Neurologic: normal mental status, non-focal exam, pupils equal and round, CN II- XII normal, motor strength normal and Psychiatric: mood appropriate, affect normal CBC and BMP: 04/17/19 07:48 04/16/19 05:14 ABG, PT/INR, D-dimer: PT/INR, D-dimer PT 17.9 Sec. (12.2-14.9) H 04/10/19 21:02 INR 1.38 (0.87-1.13) H 04/10/19 21:02 Abnormal lab findings: Abnormal Labs 04/10/19 04/10/19 04/10/19 17:29 17:29 18:12 RBC 2.00 L Hgb 5.6 L* Hct 16.6 L* MCV 83 L MCHC RDW 18.3 H Plt Count Lymph % (Auto) 7.8 L [place] % (Auto) Lymph # 0.7 L Seg Neutrophils % 83.2 H PT INR Chloride Carbon Dioxide BUN 65 H Creatinine 5.9 H Glucose 111 H POC Glucose Calcium TIBC Transferrin Ferritin Alkaline Phosphatase 33 L Troponin T 0.068 H Total Protein 5.6 L Albumin 3.0 L Triglycerides 307 H HDL Cholesterol 29 L Crossmatch See Detail 04/10/19 04/10/19 04/10/19 20:43 20:43 21:02 RBC Hgb Hct MCV MCHC RDW Plt Count Lymph % (Auto) [place] % (Auto) Lymph # Seg Neutrophils % PT 17.9 H INR 1.38 H Chloride Carbon Dioxide BUN Creatinine Glucose POC Glucose Calcium TIBC 176 L 168 L Transferrin 154 L Ferritin Alkaline Phosphatase Troponin T Total Protein Albumin Triglycerides HDL Cholesterol Crossmatch 04/10/19 04/11/19 04/11/19 23:10 05:05 05:05 RBC 2.26 L Hgb 6.6 L Hct 19.7 L* MCV MCHC RDW 19.2 H Plt Count 124 L Lymph % (Auto) 13.3 L [place] % (Auto) 10.3 H Lymph # 1.0 L Seg Neutrophils % 73.9 H PT INR Chloride Carbon Dioxide BUN 87 H Creatinine 7.1 H Glucose 111 H POC Glucose Calcium 8.1 L TIBC Transferrin Ferritin Alkaline Phosphatase Troponin T 0.064 H Total Protein Albumin Triglycerides HDL Cholesterol Crossmatch 04/11/19 04/11/19 04/12/19 10:43 10:43 07:56 RBC 2.09 L Hgb 6.9 L 6.1 L Hct 20.3 L 18.5 L* MCV MCHC RDW 17.3 H Plt Count 112 L Lymph % (Auto) [place] % (Auto) Lymph # Seg Neutrophils % PT INR Chloride Carbon Dioxide BUN Creatinine Glucose POC Glucose Calcium TIBC Transferrin Ferritin 855.7 H Alkaline Phosphatase Troponin T Total Protein Albumin Triglycerides HDL Cholesterol Crossmatch 04/12/19 04/12/19 04/12/19 23:16 23:39 23:39 RBC Hgb Hct MCV MCHC RDW Plt Count Lymph % (Auto) [place] % (Auto) Lymph # Seg Neutrophils % PT INR Chloride Carbon Dioxide 21 L BUN 132 H Creatinine 8.0 H Glucose 112 H POC Glucose 141 H Calcium 7.6 L TIBC Transferrin Ferritin Alkaline Phosphatase Troponin T 0.119 H* D Total Protein Albumin Triglycerides HDL Cholesterol Crossmatch 04/13/19 04/13/19 04/13/19 00:37 05:58 05:58 RBC 1.82 L 1.65 L Hgb 5.7 L* 4.9 L* Hct 15.9 L* 14.2 L* MCV MCHC 36 H 35 H RDW 16.1 H 15.9 H Plt Count 100 L 104 L Lymph % (Auto) [place] % (Auto) Lymph # Seg Neutrophils % PT INR Chloride Carbon Dioxide 21 L BUN 148 H Creatinine 9.4 H Glucose 121 H POC Glucose Calcium 7.2 L TIBC Transferrin Ferritin Alkaline Phosphatase Troponin T Total Protein Albumin Triglycerides HDL Cholesterol Crossmatch 04/13/19 04/13/19 04/14/19 05:58 16:51 01:39 RBC Hgb 8.3 L D 8.0 L Hct 24.2 L D 25.2 L MCV MCHC RDW Plt Count Lymph % (Auto) [place] % (Auto) Lymph # Seg Neutrophils % PT INR Chloride Carbon Dioxide BUN Creatinine Glucose POC Glucose Calcium TIBC Transferrin Ferritin Alkaline Phosphatase Troponin T 0.120 H* Total Protein Albumin Triglycerides HDL Cholesterol Crossmatch 04/14/19 04/14/19 04/15/19 05:33 17:12 10:31 RBC Hgb 7.7 L Hct 22.4 L MCV MCHC RDW Plt Count Lymph % (Auto) [place] % (Auto) Lymph # Seg Neutrophils % PT INR Chloride 96.6 L Carbon Dioxide BUN 82 H Creatinine 6.5 H Glucose 104 H POC Glucose Calcium 7.5 L TIBC Transferrin Ferritin Alkaline Phosphatase Troponin T Total Protein Albumin Triglycerides HDL Cholesterol Crossmatch See Detail 04/16/19 04/16/19 04/17/19 05:14 05:14 07:48 RBC 3.21 L 3.35 L Hgb 9.7 L 9.9 L Hct 28.1 L 28.7 L MCV MCHC RDW 17.2 H 17.3 H Plt Count 93 L 112 L Lymph % (Auto) [place] % (Auto) 11.5 H 10.3 H Lymph # 0.8 L 1.0 L Seg Neutrophils % PT INR Chloride 96.6 L Carbon Dioxide BUN 36 H Creatinine 5.2 H Glucose POC Glucose Calcium 7.6 L TIBC Transferrin Ferritin Alkaline Phosphatase Troponin T Total Protein Albumin Triglycerides HDL Cholesterol Crossmatch Allied health notes reviewed: nursing
[2019-04-17] MEDS: IMDUR PO SCH (15:33)
[2019-04-17 15:34] VITALS: BP 124/64
[2019-04-17] MEDS: CORDARONE PO SCH (15:34)
[2019-04-17] MEDS: ELIQUIS PO SCH (15:34)
[2019-04-17] MEDS: TUMS PO SCH (15:35)
[2019-04-17] MEDS: TOPROL XL PO SCH (15:35)
[2019-04-17] MEDS ORDERED: MIRALAX 3350 PO SCH (22:00)
[2019-04-20 15:08] LABS: Heparin-Induced Platelet Antib Negative (Negative); Unfractionated Heparin Negative (Negative)
== END 2019-04-17 16:45 | disposition home or self-care (01) | DRG 377 ==
LOC: ED 16:37 → 4A 20:29 → CC1 04-13 17:59 → 4A 04-14 16:48
PROVIDERS: ADMIT Internal Medicine; ATTEND Hospitalist
PROC: 30233N1 Transfusion of Nonautologous Red Blood Cells into Peripheral Vein, Percutaneous Approach (ICD-10-PCS; principal; 2019-04-10)
PROC: 5A1D70Z Performance of Urinary Filtration, Intermittent, Less than 6 Hours Per Day (ICD-10-PCS; 2019-04-11)
PROC: 5A1D70Z Performance of Urinary Filtration, Intermittent, Less than 6 Hours Per Day (ICD-10-PCS; 2019-04-13)
PROC: 0DB98ZX Excision of Duodenum, Via Natural or Artificial Opening Endoscopic, Diagnostic (ICD-10-PCS; 2019-04-13)
PROC: 0DB68ZX Excision of Stomach, Via Natural or Artificial Opening Endoscopic, Diagnostic (ICD-10-PCS; 2019-04-13)
PROC: 5A1D70Z Performance of Urinary Filtration, Intermittent, Less than 6 Hours Per Day (ICD-10-PCS; 2019-04-15)
PROC: 5A1D70Z Performance of Urinary Filtration, Intermittent, Less than 6 Hours Per Day (ICD-10-PCS; 2019-04-17)
DX: K29.81 Duodenitis with bleeding (principal); N18.6 End stage renal disease; I21.A1 Myocardial infarction type 2; R57.8 Other shock; D62 Acute posthemorrhagic anemia; K25.4 Chronic or unspecified gastric ulcer with hemorrhage; K31.811 Angiodysplasia of stomach and duodenum with bleeding; I48.0 Paroxysmal atrial fibrillation; I25.10 Atherosclerotic heart disease of native coronary artery without angina pectoris; K44.9 Diaphragmatic hernia without obstruction or gangrene; I11.0 Hypertensive heart disease with heart failure; I50.9 Heart failure, unspecified; J44.9 Chronic obstructive pulmonary disease, unspecified; E66.9 Obesity, unspecified; D69.6 Thrombocytopenia, unspecified; Z99.2 Dependence on renal dialysis; I25.2 Old myocardial infarction; Z95.5 Presence of coronary angioplasty implant and graft; Z79.899 Other long term (current) drug therapy; Z88.1 Allergy status to other antibiotic agents; Z88.8 Allergy status to other drugs, medicaments and biological substances; Z79.51 Long term (current) use of inhaled steroids; Z79.01 Long term (current) use of anticoagulants; Z87.891 Personal history of nicotine dependence; Z68.32 Body mass index [BMI] 32.0-32.9, adult
CPT/HCPCS: 36415; 36430; 71045; 74176; 80048; 80053; 80061; 80074; 82140; 82270; 82550; 82553; 82607; 82728; 82747; 82962; 83550; 84484; 85014; 85018; 85025; 85027; 85610; 86022; 86850; 86900; 86901; 86920; 88305; 88342; 93005; 93010; 94640; 94760; 96360; G0378; A9270-GY; C9113; J0282; J2270; J2405; J2704; J2765; J3420; J7030; J7040; J7050; J7060; P9016

== ENCOUNTER 2021-02-07 20:15 | Inpatient (IN) | payer OTHER ==
--- NOTE | 2021-02-07 21:03 | XRay Report ---
CHEST 2 VIEWS INDICATION / CLINICAL INFORMATION: Chest pain. COMPARISON: Prior CT chest on 09/27/2020 FINDINGS: SUPPORT DEVICES: None. HEART / MEDIASTINUM: No significant abnormality. 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 No acute pulmonary abnormal ity. ADDITIONAL FINDINGS: No significant additional findings. IMPRESSION: 1. No acute findings. Signer Name: Mihai Arias MD Signed: 02/07/2021 8:58 PM Workstation Name: [id number]
[2021-02-07 21:04] LABS: Basophils # (Auto) 0.1 K/mm3 (0.0-0.1); Basophils % (Auto) 0.6 % (0.0-1.8); Eosinophils # (Auto) 0.1 K/mm3 (0.0-0.4); Eosinophils % (Auto) 1.3 % (0.0-4.3); Hematocrit 36.7 % (35.5-45.6); Hemoglobin 12.1 gm/dl (11.8-15.2); Lymphocytes # (Auto) 1.3 K/mm3 (1.2-5.4); Lymphocytes % (Auto) 16.6 % (13.4-35.0); Mean Corpuscular HGB Conc 33 % (32-34); Mean Corpuscular Volume 85 fl (84-94); Monocytes % (Auto) 12.2 % (0.0-7.3); Platelet Count 163 K/mm3 (140-440); Red Blood Count 4.31 M/mm3 (3.65-5.03)
[2021-02-07 21:21] LABS: Albumin 4.4 g/dL (3.9-5); Calcium 9.4 mg/dL (8.4-10.2)
[2021-02-07 21:37] LABS: Chol/HDL Ratio 3.71 %
--- NOTE | 2021-02-07 22:44 | Emergency Department Report ---
ED Chest Pain HPI - General Chief Complaint: Chest Pain Stated Complaint: CHEST PAINS ` PUI?: No Time Seen by Provider: 02/07/21 21:31 Source: patient Mode of arrival: Ambulatory Limitations: No Limitations - History of Present Illness Initial Comments: Chief complaint: Chest pain HPI: This is a 80-year-old male with history of CAD status post [place] x 2 and 3 cardiac stents, paroxysmal atrial fibrillation on warfarin, end-stage renal disease on hemodialysis Saturday, COPD, hyperlipidemia, anemia who presents with chest pain which began on yesterday. He has a mild to moderate pulling sensation which is intermittent. No radiation. He has persistent shortness of breath which is unchanged due to COPD. Pain is similar to previous [place] however the location is slightly different. He does not have any chest pain at this time. Pain has been episodic even at rest. Patient does not take antiplatelet therapy. He takes warfarin for atrial fibrillation. Patient received 2 doses of COVID-19 vaccine[address] 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 Mann [facility] According to cardiology consultation note by Dr. Buck Garcia 10/31/2019, cardiac catheterization in August 2018 found patent stents in the proximal LAD, mid LAD and mid distal circumflex, tight lesion and large marginal branch at the ostium MD Complaint: chest pain -: Gradual, days(s) (1 day) Onset: during rest Pain Location: left chest Pain Radiation: none Severity: moderate Quality: dull, other ("Feels like a pulled muscle") Consistency: intermittent, now resolved Improves With: nothing Worsens With: nothing re: dyspnea (Chronic dyspnea due to COPD) Other Symptoms: denies: cough, fever, syncope, rash, acid taste in mouth, leg swelling, palpitations - Related Data Home Medications Medication Instructions Recorded Confirmed Last Taken Cholecalciferol (Vitamin D3) 1,000 unit PO QDAY 11/07/19 09/26/20 09/22/20 [Vitamin D3 2,000 UNIT CAP] Previous Rx's Medication Instructions Recorded Last Taken Type ALBUTEROL NEB's [Proventil 0.083% 2.5 mg IH Q6HRT PRN #50 nebu 09/28/20 Unknown Rx NEBS] Albuterol Sulfate [Proair 90 mcg IH QID PRN 30 Days #1 09/28/20 Unknown Rx Respiclick] [email or web address] AtorvaSTATin 10 mg PO QHS #30 tablet 09/28/20 Unknown Rx Budesonide [Pulmicort Respules] 0.5 mg IH Q12HRT #30 nebu 09/28/20 Unknown Rx Cholecalciferol Vit D3 [Vitamin D3 1,000 unit PO QDAY tablet 09/28/20 Unknown Rx 1,000 UNIT TAB] Epoetin Eric 10,000 Unit [Procrit] 10,000 unit IV LIZANDRO PRN vial 09/28/20 Unknown Rx Famotidine [Pepcid] 10 mg PO BID #60 tablet 09/28/20 Unknown Rx Ipratropium/Albuterol Sulfate 1 ampul IH TIDRT #50 ampul.neb 09/28/20 Unknown Rx [DUONEB *Not for PRN Use*] Lanthanum Carbonate [Fosrenol] 1,000 mg PO BIDAC #60 tab.chew 09/28/20 Unknown Rx Metoprolol [Lopressor TAB] 50 mg PO BID #60 tablet 09/28/20 Unknown Rx Prazosin 5 mg PO Q12HR #60 capsule 09/28/20 Unknown Rx Prednisone [predniSONE 10 mg 10 mg PO .TAPER #1 tab.ds.pk 09/28/20 Unknown Rx (6-Day Pack, 21 Tabs)] Sodium Bicarbonate 650 mg PO BID #60 09/28/20 Unknown Rx Spironolactone [Aldactone] 25 mg PO QDAY #30 tablet 09/28/20 Unknown Rx Terazosin HCl 10 mg PO HS #30 cap 09/28/20 Unknown Rx Tiotropium [Spiriva] 2 puff IH DAILY 30 Days #1 cap 09/28/20 Unknown Rx Warfarin [Coumadin] 7.5 mg PO QDAY #30 09/28/20 Unknown Rx Allergies Allergy/AdvReac Type Severity Reaction Status Date / Time atorvastatin calcium Allergy Mild Unknown Verified 09/23/20 12:30 [From Lipitor] ciprofloxacin [From Cipro] Allergy Mild Bleeding Verified 09/23/20 12:30 ciprofloxacin HCl Allergy Mild Bleeding Verified 09/23/20 12:30 [From Cipro] simvastatin Allergy Mild Unknown Verified 09/23/20 12:30 Heart Score - HEART Score History: Highly suspicious EKG: Non-specific Age: > 65 Risk factors: > 3 risk factors or hx of atherosclerotic disease Troponin: > 3x normal limit HEART Score: 9 - EKG Read Time Time EKG Completed: 20:36 EKG Read Time: 20:42 ED Review of Systems ROS: Stated complaint: CHEST PAINS ` Other details as noted in HPI Comment: All other systems reviewed and negative Constitutional: denies: fever, malaise Respiratory: shortness of breath. denies: cough Cardiovascular: chest pain. denies: palpitations Gastrointestinal: denies: abdominal pain, nausea, vomiting ED Past Medical Hx - Past Medical History Previous Medical History?: Yes Hx Hypertension: Yes (episodes of hypotension this admission) Hx Heart Attack/AMI: Yes (x2; 2010) Hx Congestive Heart Failure: Yes Hx Renal Disease: Yes (dialysis MWF fistula L FA) Hx Arthritis: Yes Hx COPD: Yes Additional medical history: anemia - Surgical History Past Surgical History?: Yes Hx Coronary Stent: Yes Hx Pacemaker: No Hx Internal Defibrillator: No - Social History Smoking Status: Former Smoker - Medications Home Medications: Home Medications Medication Instructions Recorded Confirmed Last Taken Type Cholecalciferol (Vitamin D3) 1,000 unit PO QDAY 11/07/19 09/26/20 09/22/20 History [Vitamin D3 2,000 UNIT CAP] ALBUTEROL NEB's [Proventil 0.083% 2.5 mg IH Q6HRT PRN #50 nebu 09/28/20 Unknown Rx NEBS] Albuterol Sulfate [Proair 90 mcg IH QID PRN 30 Days #1 09/28/20 Unknown Rx Respiclick] [email or web address] AtorvaSTATin 10 mg PO QHS #30 tablet 09/28/20 Unknown Rx Budesonide [Pulmicort Respules] 0.5 mg IH Q12HRT #30 nebu 09/28/20 Unknown Rx Cholecalciferol Vit D3 [Vitamin D3 1,000 unit PO QDAY tablet 09/28/20 Unknown Rx 1,000 UNIT TAB] Epoetin Eric 10,000 Unit [Procrit] 10,000 unit IV LIZANDRO PRN vial 09/28/20 Unknown Rx Famotidine [Pepcid] 10 mg PO BID #60 tablet 09/28/20 Unknown Rx Ipratropium/Albuterol Sulfate 1 ampul IH TIDRT #50 ampul.neb 09/28/20 Unknown Rx [DUONEB *Not for PRN Use*] Lanthanum Carbonate [Fosrenol] 1,000 mg PO BIDAC #60 tab.chew 09/28/20 Unknown Rx Metoprolol [Lopressor TAB] 50 mg PO BID #60 tablet 09/28/20 Unknown Rx Prazosin 5 mg PO Q12HR #60 capsule 09/28/20 Unknown Rx Prednisone [predniSONE 10 mg 10 mg PO .TAPER #1 tab.ds.pk 09/28/20 Unknown Rx (6-Day Pack, 21 Tabs)] Sodium Bicarbonate 650 mg PO BID #60 09/28/20 Unknown Rx Spironolactone [Aldactone] 25 mg PO QDAY #30 tablet 09/28/20 Unknown Rx Terazosin HCl 10 mg PO HS #30 cap 09/28/20 Unknown Rx Tiotropium [Spiriva] 2 puff IH DAILY 30 Days #1 cap 09/28/20 Unknown Rx Warfarin [Coumadin] 7.5 mg PO QDAY #30 09/28/20 Unknown Rx ED Physical Exam - General Limitations: No Limitations General appearance: alert, in no apparent distress, other (Appears comfortable, hands behind his head, legs crossed at the ankle) - Head Head exam: Present: atraumatic, normocephalic - Eye Eye exam: Present: normal appearance - ENT ENT exam: Present: mucous membranes moist - Neck Neck exam: Present: normal inspection, full ROM - Respiratory Respiratory exam: Present: normal lung sounds bilaterally. Absent: respiratory distress, wheezes, rales, rhonchi - Cardiovascular Cardiovascular Exam: Present: regular rate, normal rhythm, normal heart sounds. Absent: systolic murmur, diastolic murmur, rubs, gallop - GI/Abdominal GI/Abdominal exam: Present: soft, normal bowel sounds. Absent: distended, tenderness, guarding, rebound - Extremities Exam Extremities exam: Present: other (Left forearm AV fistula: Positive thrill positive bruit) - Neurological Exam Neurological exam: Present: alert, oriented X3 - Psychiatric Psychiatric exam: Present: normal affect, normal mood - Skin Skin exam: Present: warm, dry, intact, normal color. Absent: rash ED Course Vital Signs 02/07/21 20:23 Temperature 98.3 F Pulse Rate 72 Respiratory 18 Rate Blood Pressure 149/78 O2 Sat by Pulse 97 Oximetry ED Medical Decision Making - Lab Data Result diagrams: 02/07/21 20:42 02/07/21 20:42 Laboratory Results - last 24 hr 02/07/21 02/07/21 20:42 20:42 WBC 8.0 RBC 4.31 Hgb 12.1 Hct 36.7 MCV 85 MCH 28 MCHC 33 RDW 16.0 H Plt Count 163 Lymph % (Auto) 16.6 [place] % (Auto) 12.2 H Eos % (Auto) 1.3 Baso % (Auto) 0.6 Lymph # (Auto) 1.3 [place] # (Auto) 1.0 H Eos # (Auto) 0.1 Baso # (Auto) 0.1 Seg Neutrophils % 69.3 Seg Neutrophils # 5.6 Sodium 138 Potassium 4.6 Chloride 98.7 Carbon Dioxide 24 Anion Gap 20 BUN 58 H Creatinine 11.2 H Estimated GFR 5 BUN/Creatinine Ratio 5 Glucose 97 Calcium 9.4 Total Bilirubin 0.20 AST 25 ALT 11 Alkaline Phosphatase 57 Troponin T 1.280 H* Total Protein 7.2 Albumin 4.4 Albumin/Globulin Ratio 1.6 Triglycerides 274 H Cholesterol 193 LDL Cholesterol Direct 104 HDL Cholesterol 52 Cholesterol/HDL Ratio 3.71 - EKG Data -: EKG Interpreted by Me - EKG Data 02/07/21 22:44 EKG #1 obtained 2035 EKG interpreted by me Normal sinus rhythm rate 65 bpm left axis deviation positive LVH ST elevation in V1 V2 attributed to LVH repolarization abnormality U wave present EKG #2 obtained 2133 EKG interpreted by me Normal sinus rhythm rate 65 bpm left axis deviation positive LVH no dynamic ST-T wave changes as compared to recent previous EKG obtained 1 hour prior 02/07/21 22:48 I evaluated EKG 09/23/2020 difficult to compare due to hyperkalemic changes, EKG obtained 10/30/2029, V1 V2 QRS morphology ST segment morphology different compared to today's EKG tracings, at that time ST depression was present in the inferior leads in 2019 - Radiology Data Radiology results: report reviewed Patient Name: DAISY PABON Gender: Male Date of : 1940 Referring Provider: MONSERRAT MACHADO Organization: [facility] Accession Number: [id number] Requested Date: February 07, 2021 20:28 Report Status: Final Requested Procedure: 1 Procedure Description: XR chest routine 2V Modality: XR Findings Reporting MD: Mihai Arias Dictation Time: February 07, 2021 19:58 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 COMPARISON: Prior CT chest on 09/27/2020 FINDINGS: SUPPORT DEVICES: None. HEART / MEDIASTINUM: No significant abnormality. 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 No acute pulmonary abnormality. ADDITIONAL FINDINGS: No significant additional findings. IMPRESSION: 1. No acute findings. Signer Name: Mihai Arias MD Signed: 02/07/2021 7:58 PM Workstation Name: [id number] - Medical Decision Making Acute coronary syndrome: Elevated troponins markedly higher, 10 times higher than previous persistently elevated values. Considering patient's extensive cardiac history, I am concerned for acute coronary syndrome due to known hx of coronary artery disease Repeat troponin downtrending from 1.28-1.16, INR subtherapeutic level at 1.76. I spoke with manager unix Dr. Parikh who did not recommend anticoagulation at this time. Critical Care Time: Yes Critical care time in (mins) excluding proc time.: 40 Critical care attestation.: If time is entered above; I have spent that time in minutes in the direct care of this critically ill patient, excluding procedure time. 40 minutes of critical care time excluding procedures were used in the care of the patient. I immediately evaluated patient once I realized that patient had markedly elevated troponin above baseline. I asked for repeat EKG. I discussed treatment plan with the nursing team members. I reviewed electronic record. I updated . Patient required multiple interventions and reassessments. Patient required multiple consultations. ED Disposition Clinical Impression: Acute coronary syndrome Disposition: OP ADMIT IP TO THIS HOSP Is pt being admited?: Yes Does the pt Need Aspirin: No Condition: Stable Referrals: NAN CELESTE [Primary Care Provider] - 3-5 Days
[2021-02-07 22:56] LABS: INR 1.76 (0.87-1.13)
[2021-02-07 22:57] LABS: Partial Thromboplastin Time 34.8 Sec. (24.2-36.6)
[2021-02-08] MEDS ORDERED: ACETAMINOPHEN 325 MG TAB PO PRN (01:19)
[2021-02-08] MEDS ORDERED: NITROGLYCERIN 0.4 MG TAB SUBL SL PRN (01:19)
[2021-02-08] MEDS ORDERED: ALBUTEROL 2.5 MG/3 ML NEBU IH PRN (01:24)
[2021-02-08] MEDS ORDERED: EPOETIN ALFA-EPBX 10,000 UNIT/1 ML VIAL IV PRN (01:24)
[2021-02-08] MEDS ORDERED: hydrALAZINE 20 MG/1 ML INJ IV PRN (01:24)
--- NOTE | 2021-02-08 01:32 | History and Physical Report ---
History of Present Illness Date of examination: 02/08/21 Date of admission: 02/07/21 23:58 Chief complaint: Chest pain History of present illness: 80-year-old male with history of CAD status post [place] x 2 and 3 cardiac stents, paroxysmal atrial fibrillation on warfarin, end-stage renal disease on hemodialysis Saturday, COPD, hyperlipidemia, anemia who presents with chest pain which is 5/10 now to since yesterday. He has a mild to moderate pulling sensation which is intermittent. No radiation. He has persistent shortness of breath which is unchanged due to COPD. Pain is similar to previous [place] however the location is slightly different. He does not have any chest pain at this time. Pain has been episodic even at rest. Patient does not take antiplatelet therapy. He takes warfarin for atrial fibrillation. Patient received 2 doses of COVID-19 vaccine. In the emergency room patient initial troponin is 1.280 Next troponin 1.160 Past History Past Medical History: atrial fib, anemia, CAD, COPD, ESRD, hyperlipidemia Medications and Allergies Allergies Allergy/AdvReac Type Severity Reaction Status Date / Time atorvastatin calcium Allergy Mild Unknown Verified 09/23/20 12:30 [From Lipitor] ciprofloxacin [From Cipro] Allergy Mild Bleeding Verified 09/23/20 12:30 ciprofloxacin HCl Allergy Mild Bleeding Verified 09/23/20 12:30 [From Cipro] simvastatin Allergy Mild Unknown Verified 09/23/20 12:30 Home Medications Medication Instructions Recorded Confirmed Last Taken Type Cholecalciferol (Vitamin D3) 1,000 unit PO QDAY 11/07/19 09/26/20 09/22/20 History [Vitamin D3 2,000 UNIT CAP] ALBUTEROL NEB's [Proventil 0.083% 2.5 mg IH Q6HRT PRN #50 nebu 09/28/20 Unknown Rx NEBS] Albuterol Sulfate [Proair 90 mcg IH QID PRN 30 Days #1 09/28/20 Unknown Rx Respiclick] [email or web address] AtorvaSTATin 10 mg PO QHS #30 tablet 09/28/20 Unknown Rx Budesonide [Pulmicort Respules] 0.5 mg IH Q12HRT #30 nebu 09/28/20 Unknown Rx Cholecalciferol Vit D3 [Vitamin D3 1,000 unit PO QDAY tablet 09/28/20 Unknown Rx 1,000 UNIT TAB] Epoetin Eric 10,000 Unit [Procrit] 10,000 unit IV LIZANDRO PRN vial 09/28/20 Unknown Rx Famotidine [Pepcid] 10 mg PO BID #60 tablet 09/28/20 Unknown Rx Ipratropium/Albuterol Sulfate 1 ampul IH TIDRT #50 ampul.neb 09/28/20 Unknown Rx [DUONEB *Not for PRN Use*] Lanthanum Carbonate [Fosrenol] 1,000 mg PO BIDAC #60 tab.chew 09/28/20 Unknown Rx Metoprolol [Lopressor TAB] 50 mg PO BID #60 tablet 09/28/20 Unknown Rx Prazosin 5 mg PO Q12HR #60 capsule 09/28/20 Unknown Rx Prednisone [predniSONE 10 mg 10 mg PO .TAPER #1 tab.ds.pk 09/28/20 Unknown Rx (6-Day Pack, 21 Tabs)] Sodium Bicarbonate 650 mg PO BID #60 09/28/20 Unknown Rx Spironolactone [Aldactone] 25 mg PO QDAY #30 tablet 09/28/20 Unknown Rx Terazosin HCl 10 mg PO HS #30 cap 09/28/20 Unknown Rx Tiotropium [Spiriva] 2 puff IH DAILY 30 Days #1 cap 09/28/20 Unknown Rx Warfarin [Coumadin] 7.5 mg PO QDAY #30 09/28/20 Unknown Rx Active Meds: Active Medications Acetaminophen (Acetaminophen 325 Mg Tab) 650 mg PO Q4H PRN PRN Reason: Pain, Mild (1-3) Albuterol (Albuterol 2.5 Mg/3 Ml Nebu) 2.5 mg IH Q6HRT PRN PRN Reason: Shortness Of Breath Albuterol/Ipratropium (Ipratropium/Albuterol Sulfate 3 Ml Ampul.Neb) 1 ampul IH TIDRT DARNELL Aspirin (Aspirin 81 Mg Tab Chew) 81 mg PO QDAY DARNELL Atorvastatin Calcium (Atorvastatin 40 Mg Tab) 80 mg PO QHS DARNELL Budesonide (Budesonide 0.5 Mg/2 Ml Nebu) 0.5 mg IH Q12HRT DARNELL Hydralazine HCl (Hydralazine 20 Mg/1 Ml Inj) 10 mg IV Q6H PRN PRN Reason: htn Miscellaneous Medication (Epoetin Eric 10,000 Unit [Procrit]) 10,000 unit IV LIZANDRO PRN PRN Reason: hemodialysis Nitroglycerin (Nitroglycerin 0.4 Mg Tab Subl) 0.4 mg SL .Q5MIN PRN PRN Reason: Chest Pain Pantoprazole Sodium (Pantoprazole 40 Mg Tab) 40 mg PO QDAC [facility] Review of Systems Cardiovascular: chest pain Exam - Constitutional Vitals: Temp Pulse Resp BP Pulse Ox 98.3 F 59 L 16 148/60 96 02/07/21 20:23 02/08/21 01:17 02/08/21 00:46 02/08/21 00:46 02/08/21 00:46 General appearance: Present: no acute distress, well-nourished - EENT Eyes: Present: PERRL ENT: hearing intact, clear oral mucosa - Neck Neck: Present: supple, normal ROM - Respiratory Respiratory effort: normal Respiratory: bilateral: CTA - Cardiovascular Heart Sounds: Present: S1 & S2. Absent: rub, click - Extremities Extremities: pulses symmetrical, No edema Peripheral Pulses: within normal limits - Abdominal General gastrointestinal: Present: soft, non-tender, non-distended, normal bowel sounds Male genitourinary: Present: normal - Integumentary Integumentary: Present: clear, warm, dry - Musculoskeletal Musculoskeletal: gait normal, strength equal bilaterally - Psychiatric Psychiatric: appropriate mood/affect, intact judgment & insight - Neurologic Neurologic: CNII-XII intact, moves all extremities HEART Score - HEART Score EKG: Non-specific Age: > 65 Risk factors: > 3 risk factors or hx of atherosclerotic disease Troponin: Troponin T 1.160 ng/mL (0.00-0.029) H* 02/07/21 22:36 Troponin: > 3x normal limit - Critical Actions Critical Actions: >7 pts:50-65% risk of adverse cardiac event. Early invasive measures Results - Labs CBC & Chem 7: 02/07/21 20:42 02/07/21 20:42 Labs: Laboratory Last Values WBC 8.0 K/mm3 (4.5-11.0) 02/07/21 20:42 RBC 4.31 M/mm3 (3.65-5.03) 02/07/21 20:42 Hgb 12.1 gm/dl (11.8-15.2) 02/07/21 20:42 Hct 36.7 % (35.5-45.6) 02/07/21 20:42 MCV 85 fl (84-94) 02/07/21 20:42 MCH 28 pg (28-32) 02/07/21 20:42 MCHC 33 % (32-34) 02/07/21 20:42 RDW 16.0 % (13.2-15.2) H 02/07/21 20:42 Plt Count 163 K/mm3 (140-440) 02/07/21 20:42 Lymph % (Auto) 16.6 % (13.4-35.0) 02/07/21 20:42 [place] % (Auto) 12.2 % (0.0-7.3) H 02/07/21 20:42 Eos % (Auto) 1.3 % (0.0-4.3) 02/07/21 20:42 Baso % (Auto) 0.6 % (0.0-1.8) 02/07/21 20:42 Lymph # (Auto) 1.3 K/mm3 (1.2-5.4) 02/07/21 20:42 [place] # (Auto) 1.0 K/mm3 (0.0-0.8) H 02/07/21 20:42 Eos # (Auto) 0.1 K/mm3 (0.0-0.4) 02/07/21 20:42 Baso # (Auto) 0.1 K/mm3 (0.0-0.1) 02/07/21 20:42 Seg Neutrophils % 69.3 % (40.0-70.0) 02/07/21 20:42 Seg Neutrophils # 5.6 K/mm3 (1.8-7.7) 02/07/21 20:42 PT 20.4 Sec. (12.2-14.9) H 02/07/21 22:39 INR 1.76 (0.87-1.13) H 02/07/21 22:39 APTT 34.8 Sec. (24.2-36.6) 02/07/21 22:39 Sodium 138 mmol/L (137-145) 02/07/21 20:42 Potassium 4.6 mmol/L (3.6-5.0) 02/07/21 20:42 Chloride 98.7 mmol/L (98-107) 02/07/21 20:42 Carbon Dioxide 24 mmol/L (22-30) 02/07/21 20:42 Anion Gap 20 mmol/L 02/07/21 20:42 BUN 58 mg/dL (9-20) H 02/07/21 20:42 Creatinine 11.2 mg/dL (0.8-1.3) H 02/07/21 20:42 Estimated GFR 5 ml/min 02/07/21 20:42 BUN/Creatinine Ratio 5 % 02/07/21 20:42 Glucose 97 mg/dL (75-100) 02/07/21 20:42 Calcium 9.4 mg/dL (8.4-10.2) 02/07/21 20:42 Total Bilirubin 0.20 mg/dL (0.1-1.2) 02/07/21 20:42 AST 25 units/L (5-40) 02/07/21 20:42 ALT 11 units/L (7-56) 02/07/21 20:42 Alkaline Phosphatase 57 units/L (35-129) 02/07/21 20:42 Troponin T 1.160 ng/mL (0.00-0.029) H* 02/07/21 22:36 Total Protein 7.2 g/dL (6.3-8.2) 02/07/21 20:42 Albumin 4.4 g/dL (3.9-5) 02/07/21 20:42 Albumin/Globulin Ratio 1.6 % 02/07/21 20:42 Triglycerides 274 mg/dL (2-149) H 02/07/21 20:42 Cholesterol 193 mg/dL (50-199) 02/07/21 20:42 LDL Cholesterol Direct 104 mg/dL (50-130) 02/07/21 20:42 HDL Cholesterol 52 mg/dL (40-59) 02/07/21 20:42 Cholesterol/HDL Ratio 3.71 % 02/07/21 20:42 - Imaging and Cardiology Chest x-ray: image reviewed Assessment and Plan VTE prophylaxis?: Chemical Plan of care discussed with patient/family: Yes - Patient Problems (1) Acute coronary syndrome Current Visit: Yes Status: Acute Plan to address problem: Admit the patient to the cardiac telemetry. Put the patient on chest pain pathway. Aspirin 81 mg p.o. daily. Lipitor 80 mg p.o. daily. Warfarin 7.5 mg p.o. daily. We will do the serial cardiac enzyme. We also do echocardiogram. Will consult cardiology for further evaluation and treatment. Recheck lipid panel and BMP in the morning (2) Acute exacerbation of chronic obstructive pulmonary disease (COPD) Current Visit: No Status: Acute Plan to address problem: Oxygen via nasal cannula 3 L/min. DuoNeb by nebulizer every 4 hours. Spiriva 2 puffs inhaler daily (3) Acute on chronic renal failure Current Visit: No Status: Acute Plan to address problem: Patient has end-stage renal disease on dialysis. Will consult nephrology to continue the dialysis. BMP in the morning (4) Atrial fibrillation with rapid ventricular response Current Visit: No Status: Acute Plan to address problem: Patient heart rate is stable. We will continue the home medication. Will consult cardiology for further evaluation and treatment. (5) DVT prophylaxis Current Visit: No Status: Acute Plan to address problem: Patient is on warfarin with therapeutic INR for DVT prophylaxis. Protonix 40 mg p.o. daily for GI prophylaxis. Patient is a full code
[2021-02-08] MEDS ORDERED: NON-FORMULARY EACH (Prednisone [Prednisone 10 Mg (6-Day Pack, 21 Tabs)] 10 MG Tab.Ds.Pk) PO SCH (01:45)
[2021-02-08] MEDS ORDERED: METOPROLOL TARTRATE 50 MG TAB PO SCH ×2 (08:00→13:00)
[2021-02-08] MEDS: LANTHANUM CARBONATE 500 MG TAB PO SCH ×2 (08:45→16:39)
[2021-02-08] MEDS: PANTOPRAZOLE 40 MG TAB PO SCH (08:46)
[2021-02-08] MEDS: PRAZOSIN 5 MG CAP PO SCH ×2 (09:00→21:56)
[2021-02-08] MEDS: SODIUM BICARBONATE 650 MG TAB PO SCH ×2 (09:00→21:57)
--- NOTE | 2021-02-08 09:08 | Progress Note ---
Assessment and Plan Assessment and plan: (1) Acute coronary syndrome Current Visit: Yes Status: Acute Plan to address problem: Admit the patient to the cardiac telemetry. Put the patient on chest pain pathway. Aspirin 81 mg p.o. daily. Lipitor 80 mg p.o. daily. Warfarin 7.5 mg p.o. daily. We will do the serial cardiac enzyme. We also do echocardiogram. Will consult cardiology for further evaluation and treatment. Recheck lipid panel and BMP in the morning (2) Acute exacerbation of chronic obstructive pulmonary disease (COPD) Current Visit: No Status: Acute Plan to address problem: Oxygen via nasal cannula 3 L/min. DuoNeb by nebulizer every 4 hours. Spiriva 2 puffs inhaler daily (3) Acute on chronic renal failure Current Visit: No Status: Acute Plan to address problem: Patient has end-stage renal disease on dialysis. Will consult nephrology to continue the dialysis. BMP in the morning (4) Atrial fibrillation with rapid ventricular response Current Visit: No Status: Acute Plan to address problem: Patient heart rate is stable. We will continue the home medication. Will consult cardiology for further evaluation and treatment. (5) DVT prophylaxis Current Visit: No Status: Acute Plan to address problem: Patient is on warfarin with therapeutic INR for DVT prophylaxis. Protonix 40 mg p.o. daily for GI prophylaxis. Patient is a full code. 02/08/2021 -Patient has elevated troponin level and chest pain. Patient has end-stage renal disease on hemodialysis. That may contribute to the increase in troponin level. We consulted cardiology for further evaluation. -Nephrology on board for dialysis. -Patient has A. fib and on Coumadin. INR is subtherapeutic. Pharmacy consult to dose. Rate controlled -Continues treatment for COPD -Discussed with Dr. West and will do cardiac cath tomorrow or the day after History Interval history: Patient was seen and evaluated this morning Patient denied chest pain today Hospitalist Physical - Physical exam Narrative exam: Not in cardiopulmonary distress. The patient appeared well nourished and normally developed. Vital signs as documented. Head exam is unremarkable. No scleral icterus . Neck is without jugular venous distension, thyromegaly, or carotid bruits. Lungs are clear to auscultation. Cardiac exam reveals regular rate and Rhythm. Abdominal exam reveals normal bowel sounds, nontender, no organomegaly. Extremities are nonedematous and both femoral and pedal pulses are normal. BANKMAN: Alert and oriented 3. No focal weakness. - Constitutional Vitals: Temp Pulse Resp BP Pulse Ox 98.0 F 60 18 151/70 97 02/08/21 04:19 02/08/21 09:01 02/08/21 08:40 02/08/21 09:01 02/08/21 08:40 General appearance: Present: no acute distress, well-nourished HEART Score - HEART Score EKG: Non-specific Age: > 65 Risk factors: > 3 risk factors or hx of atherosclerotic disease Troponin: Troponin T 1.190 ng/mL (0.00-0.029) H* 02/08/21 05:25 Troponin: > 3x normal limit - Critical Actions Critical Actions: >7 pts:50-65% risk of adverse cardiac event. Early invasive measures Results - Labs CBC & Chem 7: 02/07/21 20:42 02/07/21 20:42 Labs: Laboratory Last Values WBC 8.0 K/mm3 (4.5-11.0) 02/07/21 20:42 RBC 4.31 M/mm3 (3.65-5.03) 02/07/21 20:42 Hgb 12.1 gm/dl (11.8-15.2) 02/07/21 20:42 Hct 36.7 % (35.5-45.6) 02/07/21 20:42 MCV 85 fl (84-94) 02/07/21 20:42 MCH 28 pg (28-32) 02/07/21 20:42 MCHC 33 % (32-34) 02/07/21 20:42 RDW 16.0 % (13.2-15.2) H 02/07/21 20:42 Plt Count 163 K/mm3 (140-440) 02/07/21 20:42 Lymph % (Auto) 16.6 % (13.4-35.0) 02/07/21 20:42 [place] % (Auto) 12.2 % (0.0-7.3) H 02/07/21 20:42 Eos % (Auto) 1.3 % (0.0-4.3) 02/07/21 20:42 Baso % (Auto) 0.6 % (0.0-1.8) 02/07/21 20:42 Lymph # (Auto) 1.3 K/mm3 (1.2-5.4) 02/07/21 20:42 [place] # (Auto) 1.0 K/mm3 (0.0-0.8) H 02/07/21 20:42 Eos # (Auto) 0.1 K/mm3 (0.0-0.4) 02/07/21 20:42 Baso # (Auto) 0.1 K/mm3 (0.0-0.1) 02/07/21 20:42 Seg Neutrophils % 69.3 % (40.0-70.0) 02/07/21 20:42 Seg Neutrophils # 5.6 K/mm3 (1.8-7.7) 02/07/21 20:42 PT 20.4 Sec. (12.2-14.9) H 02/07/21 22:39 INR 1.76 (0.87-1.13) H 02/07/21 22:39 APTT 34.8 Sec. (24.2-36.6) 02/07/21 22:39 Sodium 138 mmol/L (137-145) 02/07/21 20:42 Potassium 4.6 mmol/L (3.6-5.0) 02/07/21 20:42 Chloride 98.7 mmol/L (98-107) 02/07/21 20:42 Carbon Dioxide 24 mmol/L (22-30) 02/07/21 20:42 Anion Gap 20 mmol/L 02/07/21 20:42 BUN 58 mg/dL (9-20) H 02/07/21 20:42 Creatinine 11.2 mg/dL (0.8-1.3) H 02/07/21 20:42 Estimated GFR 5 ml/min 02/07/21 20:42 BUN/Creatinine Ratio 5 % 02/07/21 20:42 Glucose 97 mg/dL (75-100) 02/07/21 20:42 Calcium 9.4 mg/dL (8.4-10.2) 02/07/21 20:42 Total Bilirubin 0.20 mg/dL (0.1-1.2) 02/07/21 20:42 AST 25 units/L (5-40) 02/07/21 20:42 ALT 11 units/L (7-56) 02/07/21 20:42 Alkaline Phosphatase 57 units/L (35-129) 02/07/21 20:42 Troponin T 1.190 ng/mL (0.00-0.029) H* 02/08/21 05:25 Total Protein 7.2 g/dL (6.3-8.2) 02/07/21 20:42 Albumin 4.4 g/dL (3.9-5) 02/07/21 20:42 Albumin/Globulin Ratio 1.6 % 02/07/21 20:42 Triglycerides 274 mg/dL (2-149) H 02/07/21 20:42 Cholesterol 193 mg/dL (50-199) 02/07/21 20:42 LDL Cholesterol Direct 104 mg/dL (50-130) 02/07/21 20:42 HDL Cholesterol 52 mg/dL (40-59) 02/07/21 20:42 Cholesterol/HDL Ratio 3.71 % 02/07/21 20:42 Active Medications - Current Medications Current Medications: Generic Name Dose Route Start Last Admin Trade Name Freq PRN Reason Stop Dose Admin Acetaminophen 650 mg 02/08/21 01:19 Acetaminophen 325 Mg Tab PO Q4H PRN Pain, Mild (1-3) Albuterol 2.5 mg 02/08/21 01:24 Albuterol 2.5 Mg/3 Ml Nebu IH Q6HRT PRN Shortness Of Breath Albuterol/Ipratropium 1 ampul 02/08/21 08:00 Ipratropium/Albuterol Sulfate 3 Ml Ampul.Neb IH TIDRT [facility] Aspirin 81 mg 02/09/21 10:00 Aspirin 81 Mg Tab Chew PO QDAY [facility] Atorvastatin Calcium 40 mg 02/08/21 22:00 Atorvastatin 40 Mg Tab PO QHS [facility] Budesonide 0.5 mg 02/08/21 08:00 Budesonide 0.5 Mg/2 Ml Nebu IH Q12HRT [facility] Hydralazine HCl 10 mg 02/08/21 01:24 Hydralazine 20 Mg/1 Ml Inj IV Q6H PRN htn Lanthanum Carbonate 1,000 mg 02/08/21 07:30 02/08/21 08:45 Lanthanum Carbonate 500 Mg Tab PO 1,000 mg BIDAC [facility] Administration Metoprolol Tartrate 50 mg 02/08/21 08:00 02/08/21 09:01 Metoprolol Tartrate 50 Mg Tab PO Not Given BID@0800,1700 [facility] Nitroglycerin 0.4 mg 02/08/21 01:19 Nitroglycerin 0.4 Mg Tab Subl SL .Q5MIN PRN Chest Pain Pantoprazole Sodium 40 mg 02/08/21 07:30 02/08/21 08:46 Pantoprazole 40 Mg Tab PO 40 mg QDAC [facility] Administration Prazosin HCl 5 mg 02/08/21 10:00 02/08/21 09:00 Prazosin 5 Mg Cap PO 5 mg Q12HR [facility] Administration Sodium Bicarbonate 650 mg 02/08/21 10:00 02/08/21 09:00 Sodium Bicarbonate 650 Mg Tab PO 650 mg BID [facility] Administration Spironolactone 25 mg 02/08/21 10:00 02/08/21 09:01 Spironolactone 25 Mg Tab PO 25 mg QDAY [facility] Administration Warfarin Sodium 7.5 mg 02/08/21 17:00 Warfarin 7.5 Mg Tab PO QDAY@1700 [facility] Protocol
[2021-02-08] MEDS: BUDESONIDE 0.5 MG/2 ML NEBU IH SCH ×3 (09:13→19:57)
[2021-02-08] MEDS: IPRATROPIUM/ALBUTEROL SULFATE 3 ML AMPUL.NEB IH SCH ×3 (09:13→19:57)
[2021-02-08] MEDS ORDERED: SPIRONOLACTONE 25 MG TAB PO SCH (10:00)
[2021-02-08] MEDS ORDERED: TIOTROPIUM 18 MCG CAP INHALATION IH SCH (10:00)
--- NOTE | 2021-02-08 11:59 | Consultation ---
History of Present Illness Consult date: 02/08/21 Requesting physician: KAILA KNUTSON Consult reason: chest pain History of present illness: This patient is a 80 year old male with a significant hx of prior AMI x 2, CAD s/p CHEST PAIN COORDINATOR, Paroxysmal Afib AC with coumadin, ESRD on HD, COPD, HTN, Pulm HTN, HLD. He is followed by Dr West in our office. Pt presents with complaint of intermittent CP x 1 day. He describes CP as similar to his previous AMIs, 5/10 "pulling" non radiating with no palliative or provoking factors, not worse with inspiration or palpation. Troponins are elevated, consistent with NSTEMI type I. Pt has been having significant SOB with ADLs x several months, often needing to rest after 5-10 minutes of light activity. On evaluation pt is currently chest pain free and resting in bed comfortably. He denies any General weakness, SOB, N/V/D, recent illness. Tele reviewed: SR 62, no events overnight. 12 lead is negative for STEMI. Troponins are elevated x 2 consistent with NSTEMI type I. Echo reviewed (10/2020): EF 50-55%. LV Grade I diastolic Dysfunction. Mild TR RVSP 39.5. [facility] (2018): Left Main large and patent LAD proximal mid stents patent diagonal 1 ostial 80% mid to distal LAD patent circumflex is patent with mid stents widely patent OM1 ostial 80-90% patent RCA patent stents and normal LV function Lexiscan (08/2018) Reviewed: negative, No significant ischemia noted fixed mid anterior defect Past History Past Medical History: atrial fib, anemia, CAD, COPD, ESRD, hyperlipidemia Past Surgical History: PTCA Medications and Allergies Allergies Allergy/AdvReac Type Severity Reaction Status Date / Time atorvastatin calcium Allergy Mild Unknown Verified 09/23/20 12:30 [From Lipitor] ciprofloxacin [From Cipro] Allergy Mild Bleeding Verified 09/23/20 12:30 ciprofloxacin HCl Allergy Mild Bleeding Verified 09/23/20 12:30 [From Cipro] simvastatin Allergy Mild Unknown Verified 09/23/20 12:30 Home Medications Medication Instructions Recorded Confirmed Last Taken Type Cholecalciferol (Vitamin D3) 1,000 unit PO QDAY 11/07/19 09/26/20 09/22/20 History [Vitamin D3 2,000 UNIT CAP] ALBUTEROL NEB's [Proventil 0.083% 2.5 mg IH Q6HRT PRN #50 nebu 09/28/20 Unknown Rx NEBS] Albuterol Sulfate [Proair 90 mcg IH QID PRN 30 Days #1 09/28/20 Unknown Rx Respiclick] aer.[email or web address] AtorvaSTATin 10 mg PO QHS #30 tablet 09/28/20 Unknown Rx Budesonide [Pulmicort Respules] 0.5 mg IH Q12HRT #30 nebu 09/28/20 Unknown Rx Cholecalciferol Vit D3 [Vitamin D3 1,000 unit PO QDAY tablet 09/28/20 Unknown Rx 1,000 UNIT TAB] Epoetin Eric 10,000 Unit [Procrit] 10,000 unit IV LIZANDRO PRN vial 09/28/20 Unknown Rx Famotidine [Pepcid] 10 mg PO BID #60 tablet 09/28/20 Unknown Rx Ipratropium/Albuterol Sulfate 1 ampul IH TIDRT #50 ampul.neb 09/28/20 Unknown Rx [DUONEB *Not for PRN Use*] Lanthanum Carbonate [Fosrenol] 1,000 mg PO BIDAC #60 tab.chew 09/28/20 Unknown Rx Metoprolol [Lopressor TAB] 50 mg PO BID #60 tablet 09/28/20 Unknown Rx Prazosin 5 mg PO Q12HR #60 capsule 09/28/20 Unknown Rx Prednisone [predniSONE 10 mg 10 mg PO .TAPER #1 tab.ds.pk 09/28/20 Unknown Rx (6-Day Pack, 21 Tabs)] Sodium Bicarbonate 650 mg PO BID #60 09/28/20 Unknown Rx Spironolactone [Aldactone] 25 mg PO QDAY #30 tablet 09/28/20 Unknown Rx Terazosin HCl 10 mg PO HS #30 cap 09/28/20 Unknown Rx Tiotropium [Spiriva] 2 puff IH DAILY 30 Days #1 cap 09/28/20 Unknown Rx Warfarin [Coumadin] 7.5 mg PO QDAY #30 09/28/20 Unknown Rx Active Meds: Active Medications Acetaminophen (Acetaminophen 325 Mg Tab) 650 mg PO Q4H PRN PRN Reason: Pain, Mild (1-3) Albuterol (Albuterol 2.5 Mg/3 Ml Nebu) 2.5 mg IH Q6HRT PRN PRN Reason: Shortness Of Breath Albuterol/Ipratropium (Ipratropium/Albuterol Sulfate 3 Ml Ampul.Neb) 1 ampul IH TIDRT [facility] Last Admin: 02/08/21 09:13 Dose: Not Given Documented by: Aspirin (Aspirin 81 Mg Tab Chew) 81 mg PO QDAY [facility] Atorvastatin Calcium (Atorvastatin 40 Mg Tab) 40 mg PO QHS [facility] Budesonide (Budesonide 0.5 Mg/2 Ml Nebu) 0.5 mg IH Q12HRT [facility] Last Admin: 02/08/21 09:13 Dose: Not Given Documented by: Hydralazine HCl (Hydralazine 20 Mg/1 Ml Inj) 10 mg IV Q6H PRN PRN Reason: htn Lanthanum Carbonate (Lanthanum Carbonate 500 Mg Tab) 1,000 mg PO BIDAC [facility] Last Admin: 02/08/21 08:45 Dose: 1,000 mg Documented by: Metoprolol Tartrate (Metoprolol Tartrate 50 Mg Tab) 50 mg PO BID@0800,1700 [facility] Last Admin: 02/08/21 09:01 Dose: Not Given Documented by: Nitroglycerin (Nitroglycerin 0.4 Mg Tab Subl) 0.4 mg SL .Q5MIN PRN PRN Reason: Chest Pain Pantoprazole Sodium (Pantoprazole 40 Mg Tab) 40 mg PO QDAC [facility] Last Admin: 02/08/21 08:46 Dose: 40 mg Documented by: Prazosin HCl (Prazosin 5 Mg Cap) 5 mg PO Q12HR [facility] Last Admin: 02/08/21 09:00 Dose: 5 mg Documented by: Sodium Bicarbonate (Sodium Bicarbonate 650 Mg Tab) 650 mg PO BID [facility] Last Admin: 02/08/21 09:00 Dose: 650 mg Documented by: Spironolactone (Spironolactone 25 Mg Tab) 25 mg PO QDAY [facility] Last Admin: 02/08/21 09:01 Dose: 25 mg Documented by: Warfarin Sodium (Warfarin 7.5 Mg Tab) 7.5 mg PO QDAY@1700 [facility]; Protocol Review of Systems Constitutional: no weight loss, no weight gain, no fever, no chills, no sweats Ears, nose, mouth and throat: no ear pain, no ear discharge, no nose pain, no nasal congestion, no nasal discharge Cardiovascular: chest pain, no orthopnea, no palpitations, no rapid/irregular heart beat, no edema, no syncope, no lightheadedness, no shortness of breath, no paroxysmal nocturnal dyspnea, no claudication, no leg edema Respiratory: dyspnea on exertion, no cough, no hemoptysis, no shortness of breath Gastrointestinal: no abdominal pain, no nausea, no vomiting, no diarrhea, no constipation Genitourinary Male: no flank pain Musculoskeletal: no neck stiffness, no neck pain, no shooting arm pain, no arm numbness/tingling, no low back pain, no shooting leg pain Integumentary: no rash, no pruritis, no redness, no sores, no wounds Neurological: no head injury, no paralysis, no weakness, no parathesias, no numbness, no tingling, no seizures, no syncope Psychiatric: no anxiety Endocrine: no cold intolerance, no heat intolerance Hematologic/Lymphatic: no easy bruising, no easy bleeding Allergic/Immunologic: no urticaria Physical Examination Last Vital Signs Temp 98.0 F 02/08/21 04:19 Pulse 60 02/08/21 09:25 Resp 18 02/08/21 09:25 BP 151/70 02/08/21 09:01 Pulse Ox 98 02/08/21 09:25 General appearance: no acute distress HEENT: Positive: PERRL, Normocephaly, Mucus Membranes Moist Neck: Positive: neck supple, trachea midline Cardiac: Positive: Reg Rate and Rhythm, S1/S2 Lungs: Positive: clear to auscultation, Normal Breath Sounds Neuro: Positive: Grossly Intact Abdomen: Positive: Unremarkable, Soft Skin: Negative: Rash, Wound Musculoskeletal: No Pain Extremities: Present: upper extr. pulses, lower extr. pulses. Absent: edema Results 02/07/21 20:42 02/07/21 20:42 Cardiac Enzymes 02/07/21 Range/Units 20:42 AST 25 (5-40) units/L Coagulation 02/07/21 Range/Units 22:39 PT 20.4 H (12.2-14.9) Sec. INR 1.76 H (0.87-1.13) APTT 34.8 (24.2-36.6) Sec. Lipids 02/07/21 Range/Units 20:42 Triglycerides 274 H (2-149) mg/dL Cholesterol 193 (50-199) mg/dL HDL Cholesterol 52 (40-59) mg/dL Cholesterol/HDL Ratio 3.71 % CBC 02/07/21 Range/Units 20:42 WBC 8.0 (4.5-11.0) K/mm3 RBC 4.31 (3.65-5.03) M/mm3 Hgb 12.1 (11.8-15.2) gm/dl Hct 36.7 (35.5-45.6) % Plt Count 163 (140-440) K/mm3 Lymph # (Auto) 1.3 (1.2-5.4) K/mm3 [place] # (Auto) 1.0 H (0.0-0.8) K/mm3 Eos # (Auto) 0.1 (0.0-0.4) K/mm3 Baso # (Auto) 0.1 (0.0-0.1) K/mm3 Comprehensive Metabolic Panel 02/07/21 Range/Units 20:42 Sodium 138 (137-145) mmol/L Potassium 4.6 (3.6-5.0) mmol/L Chloride 98.7 (98-107) mmol/L Carbon Dioxide 24 (22-30) mmol/L BUN 58 H (9-20) mg/dL Creatinine 11.2 H (0.8-1.3) mg/dL Glucose 97 (75-100) mg/dL Calcium 9.4 (8.4-10.2) mg/dL AST 25 (5-40) units/L ALT 11 (7-56) units/L Alkaline Phosphatase 57 (35-129) units/L Total Protein 7.2 (6.3-8.2) g/dL Albumin 4.4 (3.9-5) g/dL - Imaging and Cardiology Echo: report reviewed (Echo reviewed (10/2020): EF 50-55%. LV Grade I diastolic Dysfunction. Mild TR RVSP 39.5.) Cardiac cath: report reviewed ([facility] (2018): Left Main large and patent LAD proximal mid stents patent diagonal 1 ostial 80% mid to distal LAD patent circumflex is patent with mid stents widely ) EKG: report reviewed, image reviewed - EKG Interpretation EKG: sinus rhythm EKG shows: sinus rhythm EKG interpretations - Telemetry EKG Rhythm: Sinus Rhythm - EKG Sinus rhythms and dysrhythmias: sinus rhythm Assessment and Plan This patient is a 80 year old male with a significant hx of prior AMI x 2, CAD s/p CHEST PAIN COORDINATOR, Paroxysmal Afib AC with coumadin, ESRD on HD, COPD, HTN, Pulm HTN, HLD. He is followed by Dr West in our office. Pt presents with complaint of intermittent CP x 1 day. He describes CP as similar to his previous AMIs, 5/10 "pulling" non radiating with no palliative or provoking factors, not worse with inspiration or palpation. Troponins are elevated, consistent with NSTEMI type I. Pt has been having significant SOB with ADLs x several months, often needing to rest after 5-10 minutes of light activity. On evaluation pt is currently chest pain free and resting in bed comfortably. He denies any General weakness, SOB, N/V/D, recent illness. Tele reviewed: SR 62, no events overnight. 12 lead is negative for STEMI. Troponins are elevated x 2 consistent with NSTEMI type I. Echo reviewed (10/2020): EF 50-55%. LV Grade I diastolic Dysfunction. Mild TR RVSP 39.5. [facility] (2018): Left Main large and patent LAD proximal mid stents patent diagonal 1 ostial 80% mid to distal LAD patent circumflex is patent with mid stents widely patent OM1 ostial 80-90% patent RCA patent stents and normal LV function Lexiscan (08/2018) Reviewed:negative, No significant ischemia noted fixed mid anterior defect Troponins are elevated x2 consistent with NSTEMI type I. LHC recommended for definitive diagnosis. Indications potential risks and benefits were reviewed with the pt and with via telephone and they are agreeable to proceed with LHC. Pt is on systemic AC with coumadin for hx of paroxysmal Afib. INR is currently elevated 1.76. Will hold coumadin and plan to proceed with LHC once INR is within acceptable range. Bridge AC with Heparin gtt. LHC tentatively planned for Saturday (02/10/21). Continue ASA 325mg, statin, BB. Repeat 12 Lead ECG. Continue to trend [place]. ESRD on chronic dialysis. HD per nephrology. Will follow. This pt was seen in conjunction with Dr West who agrees with this assessment and plan of care. - Patient Problems (1) Non-ST elevation SC (NSTEMI) Current Visit: Yes Status: Acute Plan to address problem: suspect type I (2) CAD (coronary artery disease) Current Visit: Yes Status: Chronic Qualifiers: Coronary Disease-Associated Artery/Lesion type: unspecified vessel or lesion type [place] vs. transplanted heart: [place] heart Associated angina: angina presence unspecified Qualified Code(s): I25.10 - Atherosclerotic heart disease of [place] coronary artery without angina pectoris (3) Acute diastolic heart failure Current Visit: Yes Status: Acute (4) Percutaneous transluminal coronary angioplasty status Current Visit: Yes Status: Chronic (5) Paroxysmal atrial fibrillation Current Visit: Yes Status: Chronic (6) Anticoagulated on Coumadin Current Visit: Yes Status: Chronic (7) ESRD (end stage renal disease) on dialysis Current Visit: Yes Status: Chronic (8) COPD (chronic obstructive pulmonary disease) Current Visit: Yes Status: Chronic Qualifiers: Chronic bronchitis type: unspecified (9) Pulmonary hypertension Current Visit: Yes Status: Chronic (10) HTN (hypertension) Current Visit: Yes Status: Chronic Qualifiers: Hypertension type: essential hypertension Qualified Code(s): I10 - Essential (primary) hypertension (11) HLD (hyperlipidemia) Current Visit: Yes Status: Chronic Qualifiers: Hyperlipidemia type: mixed hyperlipidemia Qualified Code(s): E78.2 - Mixed hyperlipidemia
--- NOTE | 2021-02-08 12:11 | Electrocardiograph Report ---
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
--- NOTE | 2021-02-08 12:11 | Electrocardiograph Report ---
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
--- NOTE | 2021-02-08 12:14 | Electrocardiograph Report ---
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
--- NOTE | 2021-02-08 12:59 | Event Note ---
Date: 02/08/21 Pt states he is followed by Dr Clemente ([employer]) with [facility] Nephrology I contacted Dr Clemente who mentioned pt is known to him and Dr Tang is covering [facility] today I notified Dr Tang ([employer]) about consult for ESRD, will assume care, we will sign off
[2021-02-08] MEDS ORDERED: SODIUM CHLORIDE 0.9% 500 ML 500 ML IV SCH (13:00)
[2021-02-08] MEDS ORDERED: HEPARIN 10,000 UNITS/10 ML VIAL IV ONE (15:57)
[2021-02-08] MEDS ORDERED: HEPARIN 10,000 UNITS/10 ML VIAL IV PRN (15:57)
[2021-02-08] MEDS ORDERED: HEPARIN/ 0.45% NACL DRIP 25,000 UNIT/500 ML BAG IV SCH (16:00)
[2021-02-08 16:26] LABS: Hematocrit 31.8 % (35.5-45.6); Hemoglobin 10.3 gm/dl (11.8-15.2)
[2021-02-08 16:38] LABS: Partial Thromboplastin Time 45.1 Sec. (24.2-36.6)
[2021-02-08] MEDS: METOPROLOL TARTRATE 50 MG TAB PO SCH (16:39)
[2021-02-08] MEDS ORDERED: WARFARIN 7.5 MG TAB PO SCH (17:00)
--- NOTE | 2021-02-08 19:31 | Event Note ---
Patient is being admitted here with multiple complex health issues including chest pain for which workup is in progress he does have a history of coronary artery disease and is currently being dialyzed on Saturday and Saturday schedule as of today he is hemodynamically stable, potassium is 4.6 BUN 58 creatinine 11.2 troponin significantly elevated at 1.1 concerning for myocardial infarction, this is definitely higher than ESRD standard, will allow cardiac workup to complete, there is no urgent emergent indication for renal replacement therapy today If there are any questions in regards to this patient's renal care please feel free to call me at [phone]
[2021-02-08] MEDS ORDERED: NON-FORMULARY EACH (Terazosin Hcl [Terazosin Hcl] 10 MG Capsule) PO SCH (22:00)
[2021-02-09] MEDS ORDERED: CLOPIDOGREL 300 MG TAB PO NR (06:00)
--- NOTE | 2021-02-09 07:23 | Consultation ---
History of Present Illness - History of Present Illness Thank you for the consultation Patient was evaluated today My assessment and plan are as follows #ESRD: Patient is currently on maintenance hemodialysis since troponin still is rising and there is no acute or emergent indication for renal placement therapy we will consider holding off dialysis for today will do a basic metabolic profile to follow-up, maintain fluid restriction patient is clinically stable has clear lung durand has no swelling #Chest pain post dialysis, currently in remission but troponin is still continues to rise, There is no emergent indication for renal replacement therapy, continue to monitor closely for now #Anemia in end-stage renal disease: Continue to monitor hemoglobin erythropoietin as needed #Hypertension and volume continue to monitor goal systolic blood pressure currently less than 160 predialysis other days around 140 #Bone mineral disorder and secondary hyperparathyroidism periodically check calcium phosphorus and PTH #Diet and nutrition: Patient should be on high protein diet, 1200 cc fluid restriction #Multiple other comorbidities Patient was adequately counseled and educated regarding all the renal related issues Laboratory studies, have been explained to the patient All questions were answered and simple [place] If you have any questions in regard to this patient's renal care please feel free to call me at [phone] We'll continue to follow and make recommendation for renal standpoint Author: Aidan Tang M.D. [facility], [address] [place] [address] Tel; [phone] Source of information: From patient as well as the current chart also discuss with cardiology History of present illness 80-year-old -L[place] male admitted here with chest pain postdialysis currently undergoing workup for elevated troponin which has still a rising trend, patient denies having any chest pain Denies having any nausea vomiting any shortness of breath, Past medical history: reviewed from the chart Current allergies: Reviewed from the current chart Social history: Reviewed from the current chart Family history: Reviewed from the current chart Review of system: Positive for chest pain postdialysis currently chest pain-free All other review of systems negative Physical examination Vitals: Reviewed General: No acute distress HEENT: Oral mucosa moist no pallor or icterus Neck: Supple without any JVD thyromegaly or nodular mass Chest: Clear to auscultation Heart: Regular rate and rhythm S1-S2 heard no S3-S4 Abdomen: Soft nontender, bowel sounds present no renal bruit no suprapubic masses no CVA tenderness noted Extremity: Minimal edema dry skin no peripheral cyanosis Endocrine: Thyroid not enlarged Psychiatric: No agitation and aggression noted Musculoskeletal: No joint effusion noted Labs and x-rays: Reviewed from this admission Past History Past Medical History: atrial fib, anemia, CAD, COPD, ESRD, hyperlipidemia Past Surgical History: PTCA Medications and Allergies Allergies Allergy/AdvReac Type Severity Reaction Status Date / Time atorvastatin calcium Allergy Mild Unknown Verified 09/23/20 12:30 [From Lipitor] ciprofloxacin [From Cipro] Allergy Mild Bleeding Verified 09/23/20 12:30 ciprofloxacin HCl Allergy Mild Bleeding Verified 09/23/20 12:30 [From Cipro] simvastatin Allergy Mild Unknown Verified 09/23/20 12:30 Home Medications Medication Instructions Recorded Confirmed Last Taken Type Cholecalciferol (Vitamin D3) 1,000 unit PO QDAY 11/07/19 09/26/20 09/22/20 History [Vitamin D3 2,000 UNIT CAP] ALBUTEROL NEB's [Proventil 0.083% 2.5 mg IH Q6HRT PRN #50 nebu 09/28/20 Unknown Rx NEBS] Albuterol Sulfate [Proair 90 mcg IH QID PRN 30 Days #1 09/28/20 Unknown Rx Respiclick] aer.[email or web address] AtorvaSTATin 10 mg PO QHS #30 tablet 09/28/20 Unknown Rx Budesonide [Pulmicort Respules] 0.5 mg IH Q12HRT #30 nebu 09/28/20 Unknown Rx Cholecalciferol Vit D3 [Vitamin D3 1,000 unit PO QDAY tablet 09/28/20 Unknown Rx 1,000 UNIT TAB] Epoetin Eric 10,000 Unit [Procrit] 10,000 unit IV LIZANDRO PRN vial 09/28/20 Unknown Rx Famotidine [Pepcid] 10 mg PO BID #60 tablet 09/28/20 Unknown Rx Ipratropium/Albuterol Sulfate 1 ampul IH TIDRT #50 ampul.neb 09/28/20 Unknown Rx [DUONEB *Not for PRN Use*] Lanthanum Carbonate [Fosrenol] 1,000 mg PO BIDAC #60 tab.chew 09/28/20 Unknown Rx Metoprolol [Lopressor TAB] 50 mg PO BID #60 tablet 09/28/20 Unknown Rx Prazosin 5 mg PO Q12HR #60 capsule 09/28/20 Unknown Rx Prednisone [predniSONE 10 mg 10 mg PO .TAPER #1 tab.ds.pk 09/28/20 Unknown Rx (6-Day Pack, 21 Tabs)] Sodium Bicarbonate 650 mg PO BID #60 09/28/20 Unknown Rx Spironolactone [Aldactone] 25 mg PO QDAY #30 tablet 09/28/20 Unknown Rx Terazosin HCl 10 mg PO HS #30 cap 09/28/20 Unknown Rx Tiotropium [Spiriva] 2 puff IH DAILY 30 Days #1 cap 09/28/20 Unknown Rx Warfarin [Coumadin] 7.5 mg PO QDAY #30 09/28/20 Unknown Rx Active Meds: Active Medications Acetaminophen (Acetaminophen 325 Mg Tab) 650 mg PO Q4H PRN PRN Reason: Pain, Mild (1-3) Albuterol (Albuterol 2.5 Mg/3 Ml Nebu) 2.5 mg IH Q6HRT PRN PRN Reason: Shortness Of Breath Albuterol/Ipratropium (Ipratropium/Albuterol Sulfate 3 Ml Ampul.Neb) 1 ampul IH TIDRT [facility] Last Admin: 02/08/21 19:57 Dose: 1 ampul Documented by: Aspirin (Aspirin 325 Mg Tab) 325 mg PO QDAY [facility] Atorvastatin Calcium (Atorvastatin 40 Mg Tab) 40 mg PO QHS [facility] Last Admin: 02/08/21 21:57 Dose: Not Given Documented by: Budesonide (Budesonide 0.5 Mg/2 Ml Nebu) 0.5 mg IH Q12HRT [facility] Last Admin: 02/08/21 19:57 Dose: 0.5 mg Documented by: Heparin Sodium (Porcine) (Heparin 10,000 Units/10 Ml Vial) 3,600 unit 40 unit/kg (3600 unit) IV Q6H PRN PRN Reason: Anti-Xa Assay < 0.1 units/ml Hydralazine HCl (Hydralazine 20 Mg/1 Ml Inj) 10 mg IV Q6H PRN PRN Reason: htn Heparin Sodium/Sodium Chloride (Heparin/ 0.45% Nacl-25,000 Unit/500 Ml) 25,000 unit in 500 mls @ 20 mls/hr IV TITRATE [facility]; Protocol Last Titration: 02/09/21 00:57 Dose: 1,000 units/hr, 20 mls/hr Documented by: Lanthanum Carbonate (Lanthanum Carbonate 500 Mg Tab) 1,000 mg PO BIDAC [facility] Last Admin: 02/08/21 16:39 Dose: 1,000 mg Documented by: Metoprolol Tartrate (Metoprolol Tartrate 50 Mg Tab) 50 mg PO BID@0800,1700 [facility] Last Admin: 02/08/21 16:39 Dose: Not Given Documented by: Nitroglycerin (Nitroglycerin 0.4 Mg Tab Subl) 0.4 mg SL .Q5MIN PRN PRN Reason: Chest Pain Pantoprazole Sodium (Pantoprazole 40 Mg Tab) 40 mg PO QDAC [facility] Last Admin: 02/08/21 08:46 Dose: 40 mg Documented by: Prazosin HCl (Prazosin 5 Mg Cap) 5 mg PO Q12HR [facility] Last Admin: 02/08/21 21:56 Dose: 5 mg Documented by: Sodium Bicarbonate (Sodium Bicarbonate 650 Mg Tab) 650 mg PO BID [facility] Last Admin: 02/08/21 21:57 Dose: 650 mg Documented by: Exam - Vital Signs Vital signs: Vital Signs Temp Pulse Resp BP Pulse Ox 98.3 F 72 18 149/78 97 02/07/21 20:23 02/07/21 20:23 02/07/21 20:23 02/07/21 20:23 02/07/21 20:23 Results - Lab Results 02/08/21 16:07 02/07/21 20:42 Most recent lab results Calcium 9.4 mg/dL (8.4-10.2) 02/07/21 20:42
--- NOTE | 2021-02-09 07:45 | Progress Note ---
Assessment and Plan Assessment and plan: (1) Acute coronary syndrome Current Visit: Yes Status: Acute Plan to address problem: Admit the patient to the cardiac telemetry. Put the patient on chest pain pathway. Aspirin 81 mg p.o. daily. Lipitor 80 mg p.o. daily. Warfarin 7.5 mg p.o. daily. We will do the serial cardiac enzyme. We also do echocardiogram. Will consult cardiology for further evaluation and treatment. Recheck lipid panel and BMP in the morning (2) Acute exacerbation of chronic obstructive pulmonary disease (COPD) Current Visit: No Status: Acute Plan to address problem: Oxygen via nasal cannula 3 L/min. DuoNeb by nebulizer every 4 hours. Spiriva 2 puffs inhaler daily (3) Acute on chronic renal failure Current Visit: No Status: Acute Plan to address problem: Patient has end-stage renal disease on dialysis. Will consult nephrology to continue the dialysis. BMP in the morning (4) Atrial fibrillation with rapid ventricular response Current Visit: No Status: Acute Plan to address problem: Patient heart rate is stable. We will continue the home medication. Will consult cardiology for further evaluation and treatment. (5) DVT prophylaxis Current Visit: No Status: Acute Plan to address problem: Patient is on warfarin with therapeutic INR for DVT prophylaxis. Protonix 40 mg p.o. daily for GI prophylaxis. Patient is a full code. 02/08/2021 -Patient has elevated troponin level and chest pain. Patient has end-stage renal disease on hemodialysis. That may contribute to the increase in troponin level. We consulted cardiology for further evaluation. -Nephrology on board for dialysis. -Patient has A. fib and on Coumadin. INR is subtherapeutic. Pharmacy consult to dose. Rate controlled -Continues treatment for COPD -Discussed with Dr. West and will do cardiac cath tomorrow or the day after 02/09/21 -NSTEMI, cardiology was consulted and patient is on heparin drip -Patient was on Coumadin as an outpatient, his INR was subtherapeutic yesterday, was not given Coumadin but INR this morning is therapeutic 2.0 -Patient has end-stage renal disease and not on hemodialysis, nephrology is following. -Discussed with Dr. West yesterday and will do cath either today or tomorrow. History Interval history: Patient was seen and evaluated this morning Patient denied chest pain today, no shortness of breath Patient was complaining shortness of breath but pulse rate was checked and was within normal limit Hospitalist Physical - Physical exam Narrative exam: Not in cardiopulmonary distress. The patient appeared well nourished and normally developed. Vital signs as documented. Head exam is unremarkable. No scleral icterus . Neck is without jugular venous distension, thyromegaly, or carotid bruits. Lungs are clear to auscultation. Cardiac exam reveals regular rate and Rhythm. Abdominal exam reveals normal bowel sounds, nontender, no organomegaly. Extremities are nonedematous and both femoral and pedal pulses are normal. MEDICAL STAFF COORDINATOR: Alert and oriented 3. No focal weakness. - Constitutional Vitals: Temp Pulse Resp BP Pulse Ox 98.3 F 76 16 154/76 93 02/09/21 05:30 02/09/21 05:30 02/09/21 05:30 02/09/21 05:30 02/09/21 05:30 General appearance: Present: no acute distress HEART Score - HEART Score EKG: Non-specific Age: > 65 Risk factors: > 3 risk factors or hx of atherosclerotic disease Troponin: Troponin T 1.190 ng/mL (0.00-0.029) H* 02/08/21 05:25 Troponin: > 3x normal limit - Critical Actions Critical Actions: >7 pts:50-65% risk of adverse cardiac event. Early invasive measures Results - Labs CBC & Chem 7: 02/08/21 16:07 02/07/21 20:42 Labs: Laboratory Last Values WBC 8.0 K/mm3 (4.5-11.0) 02/07/21 20:42 RBC 4.31 M/mm3 (3.65-5.03) 02/07/21 20:42 Hgb 10.3 gm/dl (11.8-15.2) L 02/08/21 16:07 Hct 31.8 % (35.5-45.6) L 02/08/21 16:07 MCV 85 fl (84-94) 02/07/21 20:42 MCH 28 pg (28-32) 02/07/21 20:42 MCHC 33 % (32-34) 02/07/21 20:42 RDW 16.0 % (13.2-15.2) H 02/07/21 20:42 Plt Count 146 K/mm3 (140-440) 02/08/21 16:07 Lymph % (Auto) 16.6 % (13.4-35.0) 02/07/21 20:42 [place] % (Auto) 12.2 % (0.0-7.3) H 02/07/21 20:42 Eos % (Auto) 1.3 % (0.0-4.3) 02/07/21 20:42 Baso % (Auto) 0.6 % (0.0-1.8) 02/07/21 20:42 Lymph # (Auto) 1.3 K/mm3 (1.2-5.4) 02/07/21 20:42 [place] # (Auto) 1.0 K/mm3 (0.0-0.8) H 02/07/21 20:42 Eos # (Auto) 0.1 K/mm3 (0.0-0.4) 02/07/21 20:42 Baso # (Auto) 0.1 K/mm3 (0.0-0.1) 02/07/21 20:42 Seg Neutrophils % 69.3 % (40.0-70.0) 02/07/21 20:42 Seg Neutrophils # 5.6 K/mm3 (1.8-7.7) 02/07/21 20:42 PT 22.6 Sec. (12.2-14.9) H 02/08/21 16:07 INR 2.00 (0.87-1.13) H 02/08/21 16:07 APTT 45.1 Sec. (24.2-36.6) H 02/08/21 16:07 Heparin Anti-Xa Level 0.41 U.I./ml (0.3-0.7) 02/08/21 23:01 Sodium 138 mmol/L (137-145) 02/07/21 20:42 Potassium 4.6 mmol/L (3.6-5.0) 02/07/21 20:42 Chloride 98.7 mmol/L (98-107) 02/07/21 20:42 Carbon Dioxide 24 mmol/L (22-30) 02/07/21 20:42 Anion Gap 20 mmol/L 02/07/21 20:42 BUN 58 mg/dL (9-20) H 02/07/21 20:42 Creatinine 11.2 mg/dL (0.8-1.3) H 02/07/21 20:42 Estimated GFR 5 ml/min 02/07/21 20:42 BUN/Creatinine Ratio 5 % 02/07/21 20:42 Glucose 97 mg/dL (75-100) 02/07/21 20:42 Calcium 9.4 mg/dL (8.4-10.2) 02/07/21 20:42 Total Bilirubin 0.20 mg/dL (0.1-1.2) 02/07/21 20:42 AST 25 units/L (5-40) 02/07/21 20:42 ALT 11 units/L (7-56) 02/07/21 20:42 Alkaline Phosphatase 57 units/L (35-129) 02/07/21 20:42 Troponin T 1.190 ng/mL (0.00-0.029) H* 02/08/21 05:25 Total Protein 7.2 g/dL (6.3-8.2) 02/07/21 20:42 Albumin 4.4 g/dL (3.9-5) 02/07/21 20:42 Albumin/Globulin Ratio 1.6 % 02/07/21 20:42 Triglycerides 274 mg/dL (2-149) H 02/07/21 20:42 Cholesterol 193 mg/dL (50-199) 02/07/21 20:42 LDL Cholesterol Direct 104 mg/dL (50-130) 02/07/21 20:42 HDL Cholesterol 52 mg/dL (40-59) 02/07/21 20:42 Cholesterol/HDL Ratio 3.71 % 02/07/21 20:42 Nasal Screen MRSA (PCR) Negative (Negative) 02/08/21 02:00 Active Medications - Current Medications Current Medications: Generic Name Dose Route Start Last Admin Trade Name Freq PRN Reason Stop Dose Admin Acetaminophen 650 mg 02/08/21 01:19 Acetaminophen 325 Mg Tab PO Q4H PRN Pain, Mild (1-3) Albuterol 2.5 mg 02/08/21 01:24 Albuterol 2.5 Mg/3 Ml Nebu IH Q6HRT PRN Shortness Of Breath Albuterol/Ipratropium 1 ampul 02/08/21 08:00 02/08/21 19:57 Ipratropium/Albuterol Sulfate 3 Ml Ampul.Neb IH 1 ampul TIDRT [facility] Administration Aspirin 325 mg 02/09/21 10:00 Aspirin 325 Mg Tab PO QDAY [facility] Atorvastatin Calcium 40 mg 02/08/21 22:00 02/08/21 21:57 Atorvastatin 40 Mg Tab PO Not Given QHS [facility] Budesonide 0.5 mg 02/08/21 08:00 02/08/21 19:57 Budesonide 0.5 Mg/2 Ml Nebu IH 0.5 mg Q12HRT [facility] Administration Heparin Sodium (Porcine) 3,600 unit 02/08/21 15:57 Heparin 10,000 Units/10 Ml Vial 40 unit/kg (3600 unit) IV Q6H PRN Anti-Xa Assay < 0.1 units/ml Hydralazine HCl 10 mg 02/08/21 01:24 Hydralazine 20 Mg/1 Ml Inj IV Q6H PRN htn Heparin Sodium/Sodium Chloride 25,000 unit in 500 mls @ 20 mls/hr 02/08/21 16:00 02/09/21 00:57 Heparin/ 0.45% Nacl-25,000 Unit/500 Ml IV 1,000 units/hr TITRATE [facility] 20 mls/hr Titration Protocol 1,000 UNITS/HR Lanthanum Carbonate 1,000 mg 02/08/21 07:30 02/08/21 16:39 Lanthanum Carbonate 500 Mg Tab PO 1,000 mg BIDAC [facility] Administration Metoprolol Tartrate 50 mg 02/08/21 17:00 02/08/21 16:39 Metoprolol Tartrate 50 Mg Tab PO Not Given BID@0800,1700 [facility] Nitroglycerin 0.4 mg 02/08/21 01:19 Nitroglycerin 0.4 Mg Tab Subl SL .Q5MIN PRN Chest Pain Pantoprazole Sodium 40 mg 02/08/21 07:30 02/08/21 08:46 Pantoprazole 40 Mg Tab PO 40 mg QDAC [facility] Administration Prazosin HCl 5 mg 02/08/21 10:00 02/08/21 21:56 Prazosin 5 Mg Cap PO 5 mg Q12HR [facility] Administration Sodium Bicarbonate 650 mg 02/08/21 10:00 02/08/21 21:57 Sodium Bicarbonate 650 Mg Tab PO 650 mg BID [facility] Administration Nutrition/Malnutrition Assess - Dietary Evaluation Nutrition/Malnutrition Findings: Nutrition Notes Start: 02/08/21 13:58 Freq: Status: Active Protocol: Document 02/08/21 13:58 THERESA (Rec: 02/08/21 14:00 THERESA [id number]) Nutrition Notes Need for Assessment generated from: Education Initial or Follow up Brief Note Current Diagnosis CKD (stage V CKD),COPD, Coronary Artery Disease, Hyperlipidemia Other Pertinent Diagnosis on HD Current Diet Cardiac Subjective/Other Information Screen for Coumadin education. Pt reports being on Coumadin for 2 years and understands vitamin interaction. Pt accepted handout. Nutrition Intervention Change Diet Order: Add renal Teaching Recipient Patient Learning Readiness Good Teaching Methods Handout Response to Teaching Verbalize understanding Education Handouts Provided Vitamin K and Medication Interactions Barriers to Learning No Barriers RD phone number provided Yes Patient aware of follow up options Yes Revisit per MD consult or patient Sign Off request:
[2021-02-09 07:56] LABS: INR 2.21 (0.87-1.13)
[2021-02-09] MEDS: IPRATROPIUM/ALBUTEROL SULFATE 3 ML AMPUL.NEB IH SCH ×3 (08:16→19:52)
[2021-02-09] MEDS: BUDESONIDE 0.5 MG/2 ML NEBU IH SCH ×2 (08:16→19:52)
[2021-02-09] MEDS: LANTHANUM CARBONATE 500 MG TAB PO SCH ×2 (09:17→17:04)
[2021-02-09] MEDS: PRAZOSIN 5 MG CAP PO SCH ×2 (09:17→21:04)
[2021-02-09] MEDS: SODIUM BICARBONATE 650 MG TAB PO SCH ×2 (09:17→21:03)
[2021-02-09] MEDS: METOPROLOL TARTRATE 50 MG TAB PO SCH ×2 (09:17→17:03)
[2021-02-09] MEDS: PANTOPRAZOLE 40 MG TAB PO SCH (09:18)
[2021-02-09] MEDS: ASPIRIN 325 MG TAB PO SCH (09:18)
--- NOTE | 2021-02-09 09:41 | Progress Note ---
Assessment and Plan This patient is a 80 year old male with a significant hx of prior AMI x 2, CAD s/p [employer], Paroxysmal Afib AC with coumadin, ESRD on HD, COPD, HTN, Pulm HTN, HLD. He is followed by Dr West in our office. Pt presents with complaint of intermittent CP x 1 day. He describes CP as similar to his previous AMIs, 5/10 "pulling" non radiating with no palliative or provoking factors, not worse with inspiration or palpation. Troponins are elevated, consistent with NSTEMI type I. Pt has been having significant SOB with ADLs x several months, often needing to rest after 5-10 minutes of light activity. On evaluation pt is currently chest pain free and resting in bed comfortably. He denies any General weakness, SOB, N/V/D, recent illness. Echo reviewed (10/2020): EF 50-55%. LV Grade I diastolic Dysfunction. Mild TR RVSP 39.5. LHC (2018): Left Main large and patent LAD proximal mid stents patent diagonal 1 ostial 80% mid to distal LAD patent circumflex is patent with mid stents widely patent OM1 ostial 80-90% patent RCA patent stents and normal LV function Lexiscan (08/2018) Reviewed:negative, No significant ischemia noted fixed mid anterior defect Pt is resting comfortably in bed, no new cardiac complaints. No CP or SOB overnight. Tele reviewed: SR 82. Episode of SVT 15 beats overnight. Troponins are elevated x3 consistent with NSTEMI type I. LHC recommended for definitive diagnosis. Pt is on systemic AC with coumadin for hx of paroxysmal Afib. INR is currently elevated 2.2. Continue to hold coumadin and plan to proceed with LHC once INR is within acceptable range. Stop Heparin gtt. LHC tentatively planned for Saturday (02/13/21). Continue ASA 325mg, statin, BB. Repeat 12 Lead ECG. Continue to trend [place]. ESRD on chronic dialysis. HD per nephrology. Assessment and plan reviewed with pt and pt's via telephone. Will follow. This pt was seen in conjunction with Dr West who agrees with this assessment and plan of care. - Patient Problems (1) Non-ST elevation [place] (NSTEMI) Current Visit: Yes Status: Acute (2) CAD (coronary artery disease) Current Visit: Yes Status: Chronic Qualifiers: Coronary Disease-Associated Artery/Lesion type: unspecified vessel or lesion type [place] vs. transplanted heart: [place] heart Associated angina: angina presence unspecified Qualified Code(s): I25.10 - Atherosclerotic heart disease of [place] coronary artery without angina pectoris (3) Acute diastolic heart failure Current Visit: Yes Status: Acute (4) Percutaneous transluminal coronary angioplasty status Current Visit: Yes Status: Chronic (5) Paroxysmal atrial fibrillation Current Visit: Yes Status: Chronic (6) Anticoagulated on Coumadin Current Visit: Yes Status: Chronic (7) ESRD (end stage renal disease) on dialysis Current Visit: Yes Status: Chronic (8) COPD (chronic obstructive pulmonary disease) Current Visit: Yes Status: Chronic Qualifiers: Chronic bronchitis type: unspecified (9) Pulmonary hypertension Current Visit: Yes Status: Chronic (10) HTN (hypertension) Current Visit: Yes Status: Chronic Qualifiers: Hypertension type: essential hypertension Qualified Code(s): I10 - Essential (primary) hypertension (11) HLD (hyperlipidemia) Current Visit: Yes Status: Chronic Qualifiers: Hyperlipidemia type: mixed hyperlipidemia Qualified Code(s): E78.2 - Mixed hyperlipidemia Subjective Date of service: 02/09/21 Principal diagnosis: NSTEMI Interval history: Pt is resting comfortably in bed, no new cardiac complaints. No CP or SOB overnight. Tele reviewed: SR 82. Episode of SVT 15 beats overnight. Objective Last Vital Signs Temp 98.0 F 02/09/21 09:14 Pulse 84 02/09/21 09:17 Resp 18 02/09/21 09:14 BP 145/54 02/09/21 09:17 Pulse Ox 94 02/09/21 09:14 - Physical Examination General: No Apparent Distress HEENT: Positive: PERRL, Normocephaly, Mucus Membranes Moist Neck: Positive: neck supple, trachea midline Cardiac: Positive: Reg Rate and Rhythm, S1/S2 Lungs: Positive: clear to auscultation, Normal Breath Sounds Neuro: Positive: Grossly Intact Abdomen: Positive: Unremarkable, Soft Skin: Negative: Rash, Wound Musculoskeletal: No Pain Extremities: Present: upper extr. pulses, lower extr. pulses. Absent: edema - Labs and Meds Coagulation 02/08/21 02/09/21 Range/Units 16:07 07:02 PT 22.6 H 24.5 H (12.2-14.9) Sec. INR 2.00 H 2.21 H (0.87-1.13) APTT 45.1 H (24.2-36.6) Sec. CBC 02/08/21 Range/Units 16:07 Hgb 10.3 L (11.8-15.2) gm/dl Hct 31.8 L (35.5-45.6) % Plt Count 146 (140-440) K/mm3 - Imaging and Cardiology EKG: report reviewed, image reviewed Echo: report reviewed (Echo reviewed (10/2020): EF 50-55%. LV Grade I diastolic Dysfunction. Mild TR RVSP 39.5.) Cardiac cath: report reviewed ([facility] (2018): Left Main large and patent LAD proximal mid stents patent diagonal 1 ostial 80% mid to distal LAD patent circumflex is patent with mid stents widely ) - Telemetry EKG Rhythm: Sinus Rhythm - EKG Sinus rhythms and dysrhythmias: sinus rhythm
[2021-02-09] MEDS ORDERED: ASPIRIN 81 MG TAB CHEW PO SCH (10:00)
[2021-02-09 14:29] LABS: Calcium 8.6 mg/dL (8.4-10.2)
[2021-02-10 05:26] LABS: Hematocrit 28.9 % (35.5-45.6); Hemoglobin 9.4 gm/dl (11.8-15.2); Mean Corpuscular HGB Conc 33 % (32-34); Mean Corpuscular Volume 86 fl (84-94); Platelet Count 144 K/mm3 (140-440); Red Blood Count 3.37 M/mm3 (3.65-5.03); Red Cell Distribution Width 16.2 % (13.2-15.2)
[2021-02-10 05:36] LABS: INR 1.99 (0.87-1.13)
[2021-02-10 05:45] LABS: Calcium 8.7 mg/dL (8.4-10.2)
[2021-02-10] MEDS ORDERED: CLOPIDOGREL 300 MG TAB PO ONE (06:00)
[2021-02-10] MEDS: BUDESONIDE 0.5 MG/2 ML NEBU IH SCH ×2 (08:18→19:55)
[2021-02-10] MEDS: IPRATROPIUM/ALBUTEROL SULFATE 3 ML AMPUL.NEB IH SCH ×3 (08:18→19:55)
--- NOTE | 2021-02-10 08:59 | Progress Note ---
Assessment and Plan Assessment and plan: (1) Acute coronary syndrome Current Visit: Yes Status: Acute Plan to address problem: Admit the patient to the cardiac telemetry. Put the patient on chest pain pathway. Aspirin 81 mg p.o. daily. Lipitor 80 mg p.o. daily. Warfarin 7.5 mg p.o. daily. We will do the serial cardiac enzyme. We also do echocardiogram. Will consult cardiology for further evaluation and treatment. Recheck lipid panel and BMP in the morning (2) Acute exacerbation of chronic obstructive pulmonary disease (COPD) Current Visit: No Status: Acute Plan to address problem: Oxygen via nasal cannula 3 L/min. DuoNeb by nebulizer every 4 hours. Spiriva 2 puffs inhaler daily (3) Acute on chronic renal failure Current Visit: No Status: Acute Plan to address problem: Patient has end-stage renal disease on dialysis. Will consult nephrology to continue the dialysis. BMP in the morning (4) Atrial fibrillation with rapid ventricular response Current Visit: No Status: Acute Plan to address problem: Patient heart rate is stable. We will continue the home medication. Will consult cardiology for further evaluation and treatment. (5) DVT prophylaxis Current Visit: No Status: Acute Plan to address problem: Patient is on warfarin with therapeutic INR for DVT prophylaxis. Protonix 40 mg p.o. daily for GI prophylaxis. Patient is a full code. 02/08/2021 -Patient has elevated troponin level and chest pain. Patient has end-stage renal disease on hemodialysis. That may contribute to the increase in troponin level. We consulted cardiology for further evaluation. -Nephrology on board for dialysis. -Patient has A. fib and on Coumadin. INR is subtherapeutic. Pharmacy consult to dose. Rate controlled -Continues treatment for COPD -Discussed with Dr. West and will do cardiac cath tomorrow or the day after 02/09/21 -NSTEMI, cardiology was consulted and patient is on heparin drip -Patient was on Coumadin as an outpatient, his INR was subtherapeutic yesterday, was not given Coumadin but INR this morning is therapeutic 2.0 -Patient has end-stage renal disease and not on hemodialysis, nephrology is following. -Discussed with Dr. West yesterday and will do cath either today or tomorrow. 02/10/2021 -Non-STEMI, management is per cardiology -INR is still high 1.99, cardiology stop heparin drip, will do cardiac cath on Saturday -ESRD nephrology following for dialysis History Interval history: Patient was seen and evaluated this morning Patient denied chest pain today, no shortness of breath Patient was complaining shortness of breath but pulse rate was checked and was within normal limit Hospitalist Physical - Physical exam Narrative exam: Not in cardiopulmonary distress. The patient appeared well nourished and normally developed. Vital signs as documented. Head exam is unremarkable. No scleral icterus . Neck is without jugular venous distension, thyromegaly, or carotid bruits. Lungs are clear to auscultation. Cardiac exam reveals regular rate and Rhythm. Abdominal exam reveals normal bowel sounds, nontender, no organomegaly. Extremities are nonedematous and both femoral and pedal pulses are normal. 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 No focal weakness. - Constitutional Vitals: Temp Pulse Resp BP Pulse Ox 98.8 F 75 19 150/64 95 02/10/21 04:52 02/10/21 08:00 02/10/21 08:00 02/10/21 04:52 02/10/21 04:52 General appearance: Present: no acute distress HEART Score - HEART Score EKG: Non-specific Age: > 65 Risk factors: > 3 risk factors or hx of atherosclerotic disease Troponin: Troponin T 2.140 ng/mL (0.00-0.029) H* D 02/09/21 07:02 Troponin: > 3x normal limit - Critical Actions Critical Actions: >7 pts:50-65% risk of adverse cardiac event. Early invasive measures Results - Labs CBC & Chem 7: 02/10/21 04:59 02/10/21 04:59 Labs: Laboratory Last Values WBC 5.7 K/mm3 (4.5-11.0) 02/10/21 04:59 RBC 3.37 M/mm3 (3.65-5.03) L 02/10/21 04:59 Hgb 9.4 gm/dl (11.8-15.2) L 02/10/21 04:59 Hct 28.9 % (35.5-45.6) L 02/10/21 04:59 MCV 86 fl (84-94) 02/10/21 04:59 MCH 28 pg (28-32) 02/10/21 04:59 MCHC 33 % (32-34) 02/10/21 04:59 RDW 16.2 % (13.2-15.2) H 02/10/21 04:59 Plt Count 144 K/mm3 (140-440) 02/10/21 04:59 Lymph % (Auto) 16.6 % (13.4-35.0) 02/07/21 20:42 [place] % (Auto) 12.2 % (0.0-7.3) H 02/07/21 20:42 Eos % (Auto) 1.3 % (0.0-4.3) 02/07/21 20:42 Baso % (Auto) 0.6 % (0.0-1.8) 02/07/21 20:42 Lymph # (Auto) 1.3 K/mm3 (1.2-5.4) 02/07/21 20:42 [place] # (Auto) 1.0 K/mm3 (0.0-0.8) H 02/07/21 20:42 Eos # (Auto) 0.1 K/mm3 (0.0-0.4) 02/07/21 20:42 Baso # (Auto) 0.1 K/mm3 (0.0-0.1) 02/07/21 20:42 Seg Neutrophils % 69.3 % (40.0-70.0) 02/07/21 20:42 Seg Neutrophils # 5.6 K/mm3 (1.8-7.7) 02/07/21 20:42 PT 22.5 Sec. (12.2-14.9) H 02/10/21 04:59 INR 1.99 (0.87-1.13) H 02/10/21 04:59 APTT 45.1 Sec. (24.2-36.6) H 02/08/21 16:07 Heparin Anti-Xa Level 0.41 U.I./ml (0.3-0.7) 02/08/21 23:01 Sodium 137 mmol/L (137-145) 02/10/21 04:59 Potassium 5.0 mmol/L (3.6-5.0) 02/10/21 04:59 Chloride 98.2 mmol/L (98-107) 02/10/21 04:59 Carbon Dioxide 19 mmol/L (22-30) L 02/10/21 04:59 Anion Gap 25 mmol/L 02/10/21 04:59 BUN 88 mg/dL (9-20) H 02/10/21 04:59 Creatinine 15.6 mg/dL (0.8-1.3) H 02/10/21 04:59 Estimated GFR 4 ml/min 02/10/21 04:59 BUN/Creatinine Ratio 6 % 02/10/21 04:59 Glucose 91 mg/dL (75-100) 02/10/21 04:59 Calcium 8.7 mg/dL (8.4-10.2) 02/10/21 04:59 Total Bilirubin 0.20 mg/dL (0.1-1.2) 02/07/21 20:42 AST 25 units/L (5-40) 02/07/21 20:42 ALT 11 units/L (7-56) 02/07/21 20:42 Alkaline Phosphatase 57 units/L (35-129) 02/07/21 20:42 Troponin T 2.140 ng/mL (0.00-0.029) H* D 02/09/21 07:02 Total Protein 7.2 g/dL (6.3-8.2) 02/07/21 20:42 Albumin 4.4 g/dL (3.9-5) 02/07/21 20:42 Albumin/Globulin Ratio 1.6 % 02/07/21 20:42 Triglycerides 274 mg/dL (2-149) H 02/07/21 20:42 Cholesterol 193 mg/dL (50-199) 02/07/21 20:42 LDL Cholesterol Direct 104 mg/dL (50-130) 02/07/21 20:42 HDL Cholesterol 52 mg/dL (40-59) 02/07/21 20:42 Cholesterol/HDL Ratio 3.71 % 02/07/21 20:42 Nasal Screen MRSA (PCR) Negative (Negative) 02/08/21 02:00 [place]/IV: Voiding Method Urinal Active Medications - Current Medications Current Medications: Generic Name Dose Route Start Last Admin Trade Name Freq PRN Reason Stop Dose Admin Acetaminophen 650 mg 02/08/21 01:19 Acetaminophen 325 Mg Tab PO Q4H PRN Pain, Mild (1-3) Albuterol 2.5 mg 02/08/21 01:24 Albuterol 2.5 Mg/3 Ml Nebu IH Q6HRT PRN Shortness Of Breath Albuterol/Ipratropium 1 ampul 02/08/21 08:00 02/10/21 08:18 Ipratropium/Albuterol Sulfate 3 Ml Ampul.Neb IH 1 ampul TIDRT DARNELL Administration Aspirin 325 mg 02/09/21 10:00 02/09/21 09:18 Aspirin 325 Mg Tab PO 325 mg QDAY [facility] Administration Atorvastatin Calcium 40 mg 02/08/21 22:00 02/09/21 21:03 Atorvastatin 40 Mg Tab PO Not Given QHS DARNELL Budesonide 0.5 mg 02/08/21 08:00 02/10/21 08:18 Budesonide 0.5 Mg/2 Ml Nebu IH 0.5 mg Q12HRT DARNELL Administration Heparin Sodium (Porcine) 3,600 unit 02/08/21 15:57 Heparin 10,000 Units/10 Ml Vial 40 unit/kg (3600 unit) IV Q6H PRN Anti-Xa Assay < 0.1 units/ml Hydralazine HCl 10 mg 02/08/21 01:24 02/10/21 00:55 Hydralazine 20 Mg/1 Ml Inj IV 10 mg Q6H PRN Administration htn Lanthanum Carbonate 1,000 mg 02/08/21 07:30 02/09/21 17:04 Lanthanum Carbonate 500 Mg Tab PO 1,000 mg BIDAC [facility] Administration Metoprolol Tartrate 50 mg 02/08/21 17:00 02/09/21 17:03 Metoprolol Tartrate 50 Mg Tab PO 50 mg BID@0800,1700 [facility] Administration Nitroglycerin 0.4 mg 02/08/21 01:19 Nitroglycerin 0.4 Mg Tab Subl SL .Q5MIN PRN Chest Pain Pantoprazole Sodium 40 mg 02/08/21 07:30 02/09/21 09:18 Pantoprazole 40 Mg Tab PO 40 mg QDAC [facility] Administration Prazosin HCl 5 mg 02/08/21 10:00 02/09/21 21:04 Prazosin 5 Mg Cap PO 5 mg Q12HR DARNELL Administration Sodium Bicarbonate 650 mg 02/08/21 10:00 02/09/21 21:03 Sodium Bicarbonate 650 Mg Tab PO 650 mg BID [facility] Administration Nutrition/Malnutrition Assess - Dietary Evaluation Nutrition/Malnutrition Findings: Nutrition Notes Start: 02/08/21 13:58 Freq: Status: Active Protocol: Document 02/08/21 13:58 THERESA (Rec: 02/08/21 14:00 MK [id number]) Nutrition Notes Need for Assessment generated from: Education Initial or Follow up Brief Note Current Diagnosis CKD (stage V CKD),COPD, Coronary Artery Disease, Hyperlipidemia Other Pertinent Diagnosis on HD Current Diet Cardiac Subjective/Other Information Screen for Coumadin education. Pt reports being on Coumadin for 2 years and understands vitamin interaction. Pt accepted handout. Nutrition Intervention Change Diet Order: Add renal Teaching Recipient Patient Learning Readiness Good Teaching Methods Handout Response to Teaching Verbalize understanding Education Handouts Provided Vitamin K and Medication Interactions Barriers to Learning No Barriers RD phone number provided Yes Patient aware of follow up options Yes Revisit per MD consult or patient Sign Off request:
--- NOTE | 2021-02-10 09:12 | Progress Note ---
Subjective Principal diagnosis: NSTEMI Interval history: Nephrology progress note Patient was seen today for follow-up of multiple renal related issues, as well as dialysis standpoint No complaints of any chest pain pressure or shortness of breath Interdisciplinary notes that also reviewed Events of 24 hours vitals labs intake output medications were reviewed Past medical history: Reviewed Family history: Reviewed Social history: Reviewed Allergies: Reviewed Physical examination: Vitals: Reviewed HEENT: No pallor or icterus oral mucosa moist Neck: Supple no JVD no thyromegaly Chest: Bilateral clear to auscultation anteriorly Heart: Regular rate and rhythm S1-S2 heard no S3-S4 Abdomen: Soft nontender no voluntary guarding rigidity rebound Extremity: Dry skin less than 1+ peripheral edema Psychiatric: No evidence of agitation and aggression noted Dermatology: No petechial rashes Labs and x-rays: Reviewed from today Assessment and plan #ESRD: Patient is currently on maintenance hemodialysis discussed with cardiology will dialyze him today gentle blood flow ultrafiltration goal only less than 1 L for now if tolerated well we can dialyze him on Saturday And he can receive his next dialysis treatment post-cath on Saturday #Non-ST elevation [place], currently being treated by cardiology likely will require cardiac catheterization on Saturday discussed with cardiology #Anemia in end-stage renal disease: Continue to monitor hemoglobin erythropoietin as needed, currently on 10,000 #Hypertension and volume continue to monitor goal systolic blood pressure currently less than 160 predialysis other days around 140 will reduce prazosin to once a day for now #Bone mineral disorder and secondary hyperparathyroidism periodically check calcium phosphorus and PTH #Diet and nutrition: Patient should be on high protein diet, 1200 cc fluid restriction #Multiple other comorbidities Patient was adequately counseled and educated regarding all the renal related issues Laboratory studies, have been explained to the patient All questions were answered and simple [place] If you have any questions in regard to this patient's renal care please feel free to call me at [phone] We'll continue to follow and make recommendation for renal standpoint Objective - Vital Signs Vital signs: Vital Signs - 12hr 02/09/21 02/10/21 02/10/21 22:59 00:55 01:00 Temperature 98.3 F Pulse Rate 75 75 Pulse Rate [ Anterior Bilateral Throughout] Pulse Rate [ 75 Right Radial] Respiratory 16 18 Rate Respiratory Rate [Anterior Bilateral Throughout] Blood Pressure 175/84 175/84 O2 Sat by Pulse 93 Oximetry 04/09/21 04/09/21 04/09/21 04:52 05:00 08:00 Temperature 98.8 F Pulse Rate 72 72 Pulse Rate [ 75 Anterior Bilateral Throughout] Pulse Rate [ Right Radial] Respiratory 16 Rate Respiratory 19 Rate [Anterior Bilateral Throughout] Blood Pressure 150/64 O2 Sat by Pulse 95 Oximetry 02/10/21 08:08 Temperature Pulse Rate 70 Pulse Rate [ Anterior Bilateral Throughout] Pulse Rate [ Right Radial] Respiratory Rate Respiratory Rate [Anterior Bilateral Throughout] Blood Pressure O2 Sat by Pulse Oximetry - Lab 02/10/21 04:59 02/10/21 04:59 Most recent lab results Calcium 8.7 mg/dL (8.4-10.2) 02/10/21 04:59 Medications & Allergies - Medications Allergies/Adverse Reactions: Allergies atorvastatin calcium [From Lipitor] Allergy (Mild, Verified 09/23/20 12:30) Unknown ACHES ciprofloxacin [From Cipro] Allergy (Mild, Verified 09/23/20 12:30) Bleeding NOSE BLEED ciprofloxacin HCl [From Cipro] Allergy (Mild, Verified 09/23/20 12:30) Bleeding NOSE BLEED simvastatin Allergy (Mild, Verified 09/23/20 12:30) Unknown ACHES Home Medications: Home Medications Medication Instructions Recorded Confirmed Last Taken Type Cholecalciferol (Vitamin D3) 1,000 unit PO QDAY 11/07/19 09/26/20 09/22/20 History [Vitamin D3 2,000 UNIT CAP] ALBUTEROL NEB's [Proventil 0.083% 2.5 mg IH Q6HRT PRN #50 nebu 09/28/20 Unknown Rx NEBS] Albuterol Sulfate [Proair 90 mcg IH QID PRN 30 Days #1 09/28/20 Unknown Rx Respiclick] [email or web address] AtorvaSTATin 10 mg PO QHS #30 tablet 09/28/20 Unknown Rx Budesonide [Pulmicort Respules] 0.5 mg IH Q12HRT #30 nebu 09/28/20 Unknown Rx Cholecalciferol Vit D3 [Vitamin D3 1,000 unit PO QDAY tablet 09/28/20 Unknown Rx 1,000 UNIT TAB] Epoetin Eric 10,000 Unit [Procrit] 10,000 unit IV LIZANDRO PRN vial 09/28/20 Unknown Rx Famotidine [Pepcid] 10 mg PO BID #60 tablet 09/28/20 Unknown Rx Ipratropium/Albuterol Sulfate 1 ampul IH TIDRT #50 ampul.neb 09/28/20 Unknown Rx [DUONEB *Not for PRN Use*] Lanthanum Carbonate [Fosrenol] 1,000 mg PO BIDAC #60 tab.chew 09/28/20 Unknown Rx Metoprolol [Lopressor TAB] 50 mg PO BID #60 tablet 09/28/20 Unknown Rx Prazosin 5 mg PO Q12HR #60 capsule 09/28/20 Unknown Rx Prednisone [predniSONE 10 mg 10 mg PO .TAPER #1 tab.ds.pk 09/28/20 Unknown Rx (6-Day Pack, 21 Tabs)] Sodium Bicarbonate 650 mg PO BID #60 09/28/20 Unknown Rx Spironolactone [Aldactone] 25 mg PO QDAY #30 tablet 09/28/20 Unknown Rx Terazosin HCl 10 mg PO HS #30 cap 09/28/20 Unknown Rx Tiotropium [Spiriva] 2 puff IH DAILY 30 Days #1 cap 09/28/20 Unknown Rx Warfarin [Coumadin] 7.5 mg PO QDAY #30 09/28/20 Unknown Rx Active Medications: Generic Name Dose Route Start Last Admin Trade Name Freq PRN Reason Stop Dose Admin Acetaminophen 650 mg 02/08/21 01:19 Acetaminophen 325 Mg Tab PO Q4H PRN Pain, Mild (1-3) Albuterol 2.5 mg 02/08/21 01:24 Albuterol 2.5 Mg/3 Ml Nebu IH Q6HRT PRN Shortness Of Breath Albuterol/Ipratropium 1 ampul 02/08/21 08:00 02/10/21 08:18 Ipratropium/Albuterol Sulfate 3 Ml Ampul.Neb IH 1 ampul TIDRT DARNELL Administration Aspirin 325 mg 02/09/21 10:00 02/09/21 09:18 Aspirin 325 Mg Tab PO 325 mg QDAY DARNELL Administration Atorvastatin Calcium 40 mg 02/08/21 22:00 02/09/21 21:03 Atorvastatin 40 Mg Tab PO Not Given QHS DARNELL Budesonide 0.5 mg 02/08/21 08:00 02/10/21 08:18 Budesonide 0.5 Mg/2 Ml Nebu IH 0.5 mg Q12HRT DARNELL Administration Heparin Sodium (Porcine) 3,600 unit 02/08/21 15:57 Heparin 10,000 Units/10 Ml Vial 40 unit/kg (3600 unit) IV Q6H PRN Anti-Xa Assay < 0.1 units/ml Hydralazine HCl 10 mg 02/08/21 01:24 02/10/21 00:55 Hydralazine 20 Mg/1 Ml Inj IV 10 mg Q6H PRN Administration htn Lanthanum Carbonate 1,000 mg 02/08/21 07:30 02/09/21 17:04 Lanthanum Carbonate 500 Mg Tab PO 1,000 mg BIDAC DARNELL Administration Metoprolol Tartrate 50 mg 02/08/21 17:00 02/09/21 17:03 Metoprolol Tartrate 50 Mg Tab PO 50 mg BID@0800,1700 DARNELL Administration Nitroglycerin 0.4 mg 02/08/21 01:19 Nitroglycerin 0.4 Mg Tab Subl SL .Q5MIN PRN Chest Pain Pantoprazole Sodium 40 mg 02/08/21 07:30 02/09/21 09:18 Pantoprazole 40 Mg Tab PO 40 mg QDAC DARNELL Administration Prazosin HCl 5 mg 02/08/21 10:00 02/09/21 21:04 Prazosin 5 Mg Cap PO 5 mg Q12HR DARNELL Administration Sodium Bicarbonate 650 mg 02/08/21 10:00 02/09/21 21:03 Sodium Bicarbonate 650 Mg Tab PO 650 mg BID DARNELL Administration
[2021-02-10] MEDS: METOPROLOL TARTRATE 50 MG TAB PO SCH ×2 (09:21→18:01)
[2021-02-10] MEDS: SODIUM BICARBONATE 650 MG TAB PO SCH ×2 (09:22→21:15)
[2021-02-10] MEDS: LANTHANUM CARBONATE 500 MG TAB PO SCH ×2 (09:22→18:01)
[2021-02-10] MEDS: PANTOPRAZOLE 40 MG TAB PO SCH (09:22)
[2021-02-10] MEDS: ASPIRIN 325 MG TAB PO SCH (09:22)
[2021-02-10] MEDS ORDERED: SODIUM CHLORIDE 0.9% 100 ML IV PRN (09:30)
--- NOTE | 2021-02-10 09:41 | Progress Note ---
Assessment and Plan This patient is a 80 year old male with a significant hx of prior AMI x 2, CAD s/p IT ANALYST, Paroxysmal Afib AC with coumadin, ESRD on HD, COPD, HTN, Pulm HTN, HLD. He is followed by Dr West in our office. Pt presents with complaint of intermittent CP x 1 day. He describes CP as similar to his previous AMIs, 5/10 "pulling" non radiating with no palliative or provoking factors, not worse with inspiration or palpation. Troponins are elevated, consistent with NSTEMI type I. Pt has been having significant SOB with ADLs x several months, often needing to rest after 5-10 minutes of light activity. On evaluation pt is currently chest pain free and resting in bed comfortably. He denies any General weakness, SOB, N/V/D, recent illness. Echo reviewed (10/2020): EF 50-55%. LV Grade I diastolic Dysfunction. Mild TR RVSP 39.5. [facility] (2018): Left Main large and patent LAD proximal mid stents patent diagonal 1 ostial 80% mid to distal LAD patent circumflex is patent with mid stents widely patent OM1 ostial 80-90% patent RCA patent stents and normal LV function Lexiscan (08/2018) Reviewed:negative, No significant ischemia noted fixed mid anterior defect Pt is resting comfortably in bed, no new cardiac complaints. No CP or SOB overnight. Pt receiving HD during interview. Tele reviewed: SR 83. No events. Troponins are elevated x3 consistent with NSTEMI type I. LHC recommended for definitive diagnosis. Pt is on systemic AC with coumadin for hx of paroxysmal Afib. INR is currently elevated 1.99. Continue to hold coumadin and plan to proceed with LHC once INR is within acceptable range. LHC tentatively planned for Saturday (02/13/21). Optimize antihypertensive regimen. resume home Procardia. Continue ASA 325mg, statin, BB, Imdur. Repeat 12 Lead ECG. Continue to trend [place]. ESRD on chronic dialysis. HD per nephrology. Assessment and plan reviewed with pt and pt's via telephone. Will follow. This pt was seen in conjunction with Dr West who agrees with this assessment and plan of care. - Patient Problems (1) Non-ST elevation [place] (NSTEMI) Current Visit: Yes Status: Acute (2) CAD (coronary artery disease) Current Visit: Yes Status: Chronic Qualifiers: Coronary Disease-Associated Artery/Lesion type: unspecified vessel or lesion type [place] vs. transplanted heart: [place] heart Associated angina: angina presence unspecified Qualified Code(s): I25.10 - Atherosclerotic heart disease of [place] coronary artery without angina pectoris (3) Acute diastolic heart failure Current Visit: Yes Status: Acute (4) Percutaneous transluminal coronary angioplasty status Current Visit: Yes Status: Chronic (5) Paroxysmal atrial fibrillation Current Visit: Yes Status: Chronic (6) Anticoagulated on Coumadin Current Visit: Yes Status: Chronic (7) ESRD (end stage renal disease) on dialysis Current Visit: Yes Status: Chronic (8) COPD (chronic obstructive pulmonary disease) Current Visit: Yes Status: Chronic Qualifiers: Chronic bronchitis type: unspecified (9) Pulmonary hypertension Current Visit: Yes Status: Chronic (10) HTN (hypertension) Current Visit: Yes Status: Chronic Qualifiers: Hypertension type: essential hypertension Qualified Code(s): I10 - Essential (primary) hypertension (11) HLD (hyperlipidemia) Current Visit: Yes Status: Chronic Qualifiers: Hyperlipidemia type: mixed hyperlipidemia Qualified Code(s): E78.2 - Mixed hyperlipidemia Subjective Date of service: 02/10/21 Principal diagnosis: NSTEMI Interval history: Pt is resting comfortably in bed, no new cardiac complaints. No CP or SOB overnight. Tele reviewed: SR 83. No Events. Objective Last Vital Signs Temp 98.6 F 02/10/21 09:12 Pulse 89 02/10/21 09:12 Resp 18 02/10/21 09:12 BP 162/67 02/10/21 09:12 Pulse Ox 94 02/10/21 09:12 - Physical Examination General: No Apparent Distress HEENT: Positive: PERRL, Normocephaly, Mucus Membranes Moist Neck: Positive: neck supple, trachea midline Cardiac: Positive: Reg Rate and Rhythm, S1/S2 Lungs: Positive: clear to auscultation, Normal Breath Sounds Neuro: Positive: Grossly Intact Abdomen: Positive: Unremarkable, Soft Skin: Negative: Rash, Wound Musculoskeletal: No Pain Extremities: Present: upper extr. pulses, lower extr. pulses. Absent: edema - Labs and Meds Coagulation 02/10/21 Range/Units 04:59 PT 22.5 H (12.2-14.9) Sec. INR 1.99 H (0.87-1.13) CBC 02/10/21 Range/Units 04:59 WBC 5.7 (4.5-11.0) K/mm3 RBC 3.37 L (3.65-5.03) M/mm3 Hgb 9.4 L (11.8-15.2) gm/dl Hct 28.9 L (35.5-45.6) % Plt Count 144 (140-440) K/mm3 Comprehensive Metabolic Panel 02/09/21 02/10/21 Range/Units 12:05 04:59 Sodium 134 L 137 (137-145) mmol/L Potassium 4.9 5.0 (3.6-5.0) mmol/L Chloride 95.7 L 98.2 (98-107) mmol/L Carbon Dioxide 15 L D 19 L (22-30) mmol/L BUN 79 H 88 H (9-20) mg/dL Creatinine 14.5 H 15.6 H (0.8-1.3) mg/dL Glucose 88 91 (75-100) mg/dL Calcium 8.6 8.7 (8.4-10.2) mg/dL - Imaging and Cardiology EKG: report reviewed, image reviewed Echo: report reviewed (Echo reviewed (10/2020): EF 50-55%. LV Grade I diastolic Dysfunction. Mild TR RVSP 39.5.) Cardiac cath: report reviewed ([facility] (2018): Left Main large and patent LAD proximal mid stents patent diagonal 1 ostial 80% mid to distal LAD patent circumflex is patent with mid stents widely ) - Telemetry EKG Rhythm: Sinus Rhythm - EKG Sinus rhythms and dysrhythmias: sinus rhythm
[2021-02-10] MEDS: NIFEdipine XL 90 MG TAB PO SCH (10:24)
--- NOTE | 2021-02-10 11:26 | Electrocardiograph Report ---
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
[2021-02-10 14:07] LABS: Hepatitis B Surface Antigen Non-Reactive (Negative); Hepatitis C Virus Antibody Non-Reactive (NonReactive)
[2021-02-10] MEDS: PRAZOSIN 5 MG CAP PO SCH (21:15)
--- NOTE | 2021-02-10 22:58 | Progress Note ---
Subjective Principal diagnosis: NSTEMI Objective - Vital Signs Vital signs: Vital Signs - 12hr 02/10/21 02/10/21 02/10/21 11:00 11:15 11:30 Temperature Pulse Rate 72 80 75 Pulse Rate [ Anterior Bilateral Throughout] Pulse Rate [ Right Radial] Respiratory Rate Respiratory Rate [Anterior Bilateral Throughout] Blood Pressure 136/60 142/68 165/91 O2 Sat by Pulse Oximetry 02/10/21 02/10/21 02/10/21 11:45 12:00 12:15 Temperature Pulse Rate 75 62 68 Pulse Rate [ Anterior Bilateral Throughout] Pulse Rate [ Right Radial] Respiratory Rate Respiratory Rate [Anterior Bilateral Throughout] Blood Pressure 155/65 168/75 162/86 O2 Sat by Pulse Oximetry 02/10/21 02/10/21 02/10/21 12:30 12:45 13:00 Temperature Pulse Rate 75 72 71 Pulse Rate [ Anterior Bilateral Throughout] Pulse Rate [ Right Radial] Respiratory Rate Respiratory Rate [Anterior Bilateral Throughout] Blood Pressure 157/77 154/70 158/62 O2 Sat by Pulse Oximetry 02/10/21 02/10/21 02/10/21 13:15 13:30 14:00 Temperature 97.9 F Pulse Rate 58 L 70 Pulse Rate [ 96 H Anterior Bilateral Throughout] Pulse Rate [ Right Radial] Respiratory 20 Rate Respiratory 18 Rate [Anterior Bilateral Throughout] Blood Pressure 162/57 155/72 O2 Sat by Pulse Oximetry 02/10/21 02/10/21 02/10/21 16:54 18:15 19:23 Temperature 97.9 F 98.4 F Pulse Rate 86 86 78 Pulse Rate [ Anterior Bilateral Throughout] Pulse Rate [ Right Radial] Respiratory 18 18 Rate Respiratory Rate [Anterior Bilateral Throughout] Blood Pressure 135/71 128/48 O2 Sat by Pulse 95 93 Oximetry 02/10/21 02/10/21 02/10/21 19:57 20:00 21:15 Temperature Pulse Rate 78 Pulse Rate [ 88 Anterior Bilateral Throughout] Pulse Rate [ 78 Right Radial] Respiratory 18 Rate Respiratory 18 Rate [Anterior Bilateral Throughout] Blood Pressure 128/48 O2 Sat by Pulse 93 Oximetry - Lab 02/10/21 04:59 02/10/21 04:59 Most recent lab results Calcium 8.7 mg/dL (8.4-10.2) 02/10/21 04:59 Medications & Allergies - Medications Allergies/Adverse Reactions: Allergies atorvastatin calcium [From Lipitor] Allergy (Mild, Verified 09/23/20 12:30) Unknown ACHES ciprofloxacin [From Cipro] Allergy (Mild, Verified 09/23/20 12:30) Bleeding NOSE BLEED ciprofloxacin HCl [From Cipro] Allergy (Mild, Verified 09/23/20 12:30) Bleeding NOSE BLEED simvastatin Allergy (Mild, Verified 09/23/20 12:30) Unknown ACHES Home Medications: Home Medications Medication Instructions Recorded Confirmed Last Taken Type Cholecalciferol (Vitamin D3) 1,000 unit PO QDAY 11/07/19 09/26/20 09/22/20 History [Vitamin D3 2,000 UNIT CAP] ALBUTEROL NEB's [Proventil 0.083% 2.5 mg IH Q6HRT PRN #50 nebu 09/28/20 Unknown Rx NEBS] Albuterol Sulfate [Proair 90 mcg IH QID PRN 30 Days #1 09/28/20 Unknown Rx Respiclick] [email or web address] AtorvaSTATin 10 mg PO QHS #30 tablet 09/28/20 Unknown Rx Budesonide [Pulmicort Respules] 0.5 mg IH Q12HRT #30 nebu 09/28/20 Unknown Rx Cholecalciferol Vit D3 [Vitamin D3 1,000 unit PO QDAY tablet 09/28/20 Unknown Rx 1,000 UNIT TAB] Epoetin Eric 10,000 Unit [Procrit] 10,000 unit IV LIZANDRO PRN vial 09/28/20 Unknown Rx Famotidine [Pepcid] 10 mg PO BID #60 tablet 09/28/20 Unknown Rx Ipratropium/Albuterol Sulfate 1 ampul IH TIDRT #50 ampul.neb 09/28/20 Unknown Rx [DUONEB *Not for PRN Use*] Lanthanum Carbonate [Fosrenol] 1,000 mg PO BIDAC #60 tab.chew 09/28/20 Unknown Rx Metoprolol [Lopressor TAB] 50 mg PO BID #60 tablet 09/28/20 Unknown Rx Prazosin 5 mg PO Q12HR #60 capsule 09/28/20 Unknown Rx Prednisone [predniSONE 10 mg 10 mg PO .TAPER #1 tab.ds.pk 09/28/20 Unknown Rx (6-Day Pack, 21 Tabs)] Sodium Bicarbonate 650 mg PO BID #60 09/28/20 Unknown Rx Spironolactone [Aldactone] 25 mg PO QDAY #30 tablet 09/28/20 Unknown Rx Terazosin HCl 10 mg PO HS #30 cap 09/28/20 Unknown Rx Tiotropium [Spiriva] 2 puff IH DAILY 30 Days #1 cap 09/28/20 Unknown Rx Warfarin [Coumadin] 7.5 mg PO QDAY #30 09/28/20 Unknown Rx Active Medications: Generic Name Dose Route Start Last Admin Trade Name Freq PRN Reason Stop Dose Admin Acetaminophen 650 mg 02/08/21 01:19 Acetaminophen 325 Mg Tab PO Q4H PRN Pain, Mild (1-3) Albuterol 2.5 mg 02/08/21 01:24 Albuterol 2.5 Mg/3 Ml Nebu IH Q6HRT PRN Shortness Of Breath Albuterol/Ipratropium 1 ampul 02/08/21 08:00 02/10/21 19:55 Ipratropium/Albuterol Sulfate 3 Ml Ampul.Neb IH 1 ampul TIDRT DARNELL Administration Aspirin 325 mg 02/09/21 10:00 02/10/21 09:22 Aspirin 325 Mg Tab PO 325 mg QDAY DARNELL Administration Atorvastatin Calcium 40 mg 02/08/21 22:00 02/10/21 21:15 Atorvastatin 40 Mg Tab PO 40 mg QHS DARNELL Administration Budesonide 0.5 mg 02/08/21 08:00 02/10/21 19:55 Budesonide 0.5 Mg/2 Ml Nebu IH 0.5 mg Q12HRT DARNELL Administration Hydralazine HCl 10 mg 02/08/21 01:24 02/10/21 00:55 Hydralazine 20 Mg/1 Ml Inj IV 10 mg Q6H PRN Administration htn Sodium Chloride 100 mls @ 999 mls/hr 02/10/21 09:30 Nacl 0.9% IV LIZANDRO PRN Hypotension Isosorbide Mononitrate 60 mg 02/10/21 10:00 02/10/21 10:00 Isosorbide Mononitrate Er 60 Mg Tab PO Not Given QDAY DARNELL Lanthanum Carbonate 1,000 mg 02/08/21 07:30 02/10/21 18:01 Lanthanum Carbonate 500 Mg Tab PO 1,000 mg BIDAC DARNELL Administration Metoprolol Tartrate 50 mg 02/08/21 17:00 02/10/21 18:01 Metoprolol Tartrate 50 Mg Tab PO 50 mg BID@0800,1700 DARNELL Administration Nifedipine 90 mg 02/10/21 10:00 02/10/21 10:24 Nifedipine Xl 90 Mg Tab PO Not Given QDAY DARNELL Nitroglycerin 0.4 mg 02/08/21 01:19 Nitroglycerin 0.4 Mg Tab Subl SL .Q5MIN PRN Chest Pain Pantoprazole Sodium 40 mg 02/08/21 07:30 02/10/21 09:22 Pantoprazole 40 Mg Tab PO 40 mg QDAC DARNELL Administration Prazosin HCl 5 mg 02/10/21 22:00 02/10/21 21:15 Prazosin 5 Mg Cap PO 5 mg HS DARNELL Administration Sodium Bicarbonate 650 mg 02/08/21 10:00 02/10/21 21:15 Sodium Bicarbonate 650 Mg Tab PO 650 mg BID DARNELL Administration
[2021-02-10] MEDS ORDERED: METOPROLOL TARTRATE 50 MG TAB PO ONE (23:21)
[2021-02-10] MEDS: DOCUSATE SODIUM 100 MG CAP PO SCH (23:45)
[2021-02-11 05:58] LABS: INR 1.55 (0.87-1.13)
[2021-02-11 06:03] LABS: Calcium 8.7 mg/dL (8.4-10.2)
--- NOTE | 2021-02-11 07:55 | Progress Note ---
Assessment and Plan Assessment and plan: (1) Acute coronary syndrome Current Visit: Yes Status: Acute Plan to address problem: Admit the patient to the cardiac telemetry. Put the patient on chest pain pathway. Aspirin 81 mg p.o. daily. Lipitor 80 mg p.o. daily. Warfarin 7.5 mg p.o. daily. We will do the serial cardiac enzyme. We also do echocardiogram. Will consult cardiology for further evaluation and treatment. Recheck lipid panel and BMP in the morning (2) Acute exacerbation of chronic obstructive pulmonary disease (COPD) Current Visit: No Status: Acute Plan to address problem: Oxygen via nasal cannula 3 L/min. DuoNeb by nebulizer every 4 hours. Spiriva 2 puffs inhaler daily (3) Acute on chronic renal failure Current Visit: No Status: Acute Plan to address problem: Patient has end-stage renal disease on dialysis. Will consult nephrology to continue the dialysis. BMP in the morning (4) Atrial fibrillation with rapid ventricular response Current Visit: No Status: Acute Plan to address problem: Patient heart rate is stable. We will continue the home medication. Will consult cardiology for further evaluation and treatment. (5) DVT prophylaxis Current Visit: No Status: Acute Plan to address problem: Patient is on warfarin with therapeutic INR for DVT prophylaxis. Protonix 40 mg p.o. daily for GI prophylaxis. Patient is a full code. 02/08/2021 -Patient has elevated troponin level and chest pain. Patient has end-stage renal disease on hemodialysis. That may contribute to the increase in troponin level. We consulted cardiology for further evaluation. -Nephrology on board for dialysis. -Patient has A. fib and on Coumadin. INR is subtherapeutic. Pharmacy consult to dose. Rate controlled -Continues treatment for COPD -Discussed with Dr. West and will do cardiac cath tomorrow or the day after 02/09/21 -NSTEMI, cardiology was consulted and patient is on heparin drip -Patient was on Coumadin as an outpatient, his INR was subtherapeutic yesterday, was not given Coumadin but INR this morning is therapeutic 2.0 -Patient has end-stage renal disease and not on hemodialysis, nephrology is following. -Discussed with Dr. West yesterday and will do cath either today or tomorrow. 02/10/2021 -Non-STEMI, management is per cardiology -INR is still high 1.99, cardiology stop heparin drip, will do cardiac cath on Saturday -ESRD nephrology following for dialysis 02/11/2021 - NSTEMI; patient will have cardiac cath on Saturday. Cardiology is following -ESRD on hemodialysis -Coumadin is on hold for cardiac cath History Interval history: Patient was seen and evaluated this morning Patient denied chest pain today, no shortness of breath Patient was complaining shortness of breath but pulse rate was checked and was within normal limit Hospitalist Physical - Constitutional Vitals: Temp Pulse Resp BP Pulse Ox 98.3 F 80 18 138/76 95 02/11/21 04:15 02/11/21 04:15 02/11/21 04:15 02/11/21 04:15 02/11/21 04:15 General appearance: Present: no acute distress HEART Score - HEART Score EKG: Non-specific Age: > 65 Risk factors: > 3 risk factors or hx of atherosclerotic disease Troponin: Troponin T 3.060 ng/mL (0.00-0.029) H* D 02/11/21 05:14 Troponin: > 3x normal limit - Critical Actions Critical Actions: >7 pts:50-65% risk of adverse cardiac event. Early invasive measures Results - Labs CBC & Chem 7: 02/10/21 04:59 02/11/21 05:14 Labs: Laboratory Last Values WBC 5.7 K/mm3 (4.5-11.0) 02/10/21 04:59 RBC 3.37 M/mm3 (3.65-5.03) L 02/10/21 04:59 Hgb 9.4 gm/dl (11.8-15.2) L 02/10/21 04:59 Hct 28.9 % (35.5-45.6) L 02/10/21 04:59 MCV 86 fl (84-94) 02/10/21 04:59 MCH 28 pg (28-32) 02/10/21 04:59 MCHC 33 % (32-34) 02/10/21 04:59 RDW 16.2 % (13.2-15.2) H 02/10/21 04:59 Plt Count 144 K/mm3 (140-440) 02/10/21 04:59 Lymph % (Auto) 16.6 % (13.4-35.0) 02/07/21 20:42 [place] % (Auto) 12.2 % (0.0-7.3) H 02/07/21 20:42 Eos % (Auto) 1.3 % (0.0-4.3) 02/07/21 20:42 Baso % (Auto) 0.6 % (0.0-1.8) 02/07/21 20:42 Lymph # (Auto) 1.3 K/mm3 (1.2-5.4) 02/07/21 20:42 [place] # (Auto) 1.0 K/mm3 (0.0-0.8) H 02/07/21 20:42 Eos # (Auto) 0.1 K/mm3 (0.0-0.4) 02/07/21 20:42 Baso # (Auto) 0.1 K/mm3 (0.0-0.1) 02/07/21 20:42 Seg Neutrophils % 69.3 % (40.0-70.0) 02/07/21 20:42 Seg Neutrophils # 5.6 K/mm3 (1.8-7.7) 02/07/21 20:42 PT 18.6 Sec. (12.2-14.9) H 02/11/21 05:14 INR 1.55 (0.87-1.13) H 02/11/21 05:14 APTT 45.1 Sec. (24.2-36.6) H 02/08/21 16:07 Heparin Anti-Xa Level 0.41 U.I./ml (0.3-0.7) 02/08/21 23:01 Sodium 141 mmol/L (137-145) 02/11/21 05:14 Potassium 4.7 mmol/L (3.6-5.0) 02/11/21 05:14 Chloride 99.4 mmol/L (98-107) 02/11/21 05:14 Carbon Dioxide 27 mmol/L (22-30) D 02/11/21 05:14 Anion Gap 19 mmol/L 02/11/21 05:14 BUN 45 mg/dL (9-20) H 02/11/21 05:14 Creatinine 9.7 mg/dL (0.8-1.3) H 02/11/21 05:14 Estimated GFR 6 ml/min 02/11/21 05:14 BUN/Creatinine Ratio 5 % 02/11/21 05:14 Glucose 102 mg/dL (75-100) H 02/11/21 05:14 Calcium 8.7 mg/dL (8.4-10.2) 02/11/21 05:14 Total Bilirubin 0.20 mg/dL (0.1-1.2) 02/07/21 20:42 AST 25 units/L (5-40) 02/07/21 20:42 ALT 11 units/L (7-56) 02/07/21 20:42 Alkaline Phosphatase 57 units/L (35-129) 02/07/21 20:42 Troponin T 3.060 ng/mL (0.00-0.029) H* D 02/11/21 05:14 Total Protein 7.2 g/dL (6.3-8.2) 02/07/21 20:42 Albumin 4.4 g/dL (3.9-5) 02/07/21 20:42 Albumin/Globulin Ratio 1.6 % 02/07/21 20:42 Triglycerides 274 mg/dL (2-149) H 02/07/21 20:42 Cholesterol 193 mg/dL (50-199) 02/07/21 20:42 LDL Cholesterol Direct 104 mg/dL (50-130) 02/07/21 20:42 HDL Cholesterol 52 mg/dL (40-59) 02/07/21 20:42 Cholesterol/HDL Ratio 3.71 % 02/07/21 20:42 Nasal Screen MRSA (PCR) Negative (Negative) 02/08/21 02:00 Hepatitis A IgM Ab Non-reactive (NonReactive) 02/10/21 10:30 Hep Bs Antigen Non-reactive (Negative) 02/10/21 10:30 Hep B Core IgM Ab Non-reactive (NonReactive) 02/10/21 10:30 Hepatitis C Antibody Non-reactive (NonReactive) 02/10/21 10:30 [place]/IV: Voiding Method Toilet Active Medications - Current Medications Current Medications: Generic Name Dose Route Start Last Admin Trade Name Freq PRN Reason Stop Dose Admin Acetaminophen 650 mg 02/08/21 01:19 Acetaminophen 325 Mg Tab PO Q4H PRN Pain, Mild (1-3) Albuterol 2.5 mg 02/08/21 01:24 Albuterol 2.5 Mg/3 Ml Nebu IH Q6HRT PRN Shortness Of Breath Albuterol/Ipratropium 1 ampul 02/08/21 08:00 02/10/21 19:55 Ipratropium/Albuterol Sulfate 3 Ml Ampul.Neb IH 1 ampul TIDRT DARNELL Administration Aspirin 325 mg 02/09/21 10:00 02/10/21 09:22 Aspirin 325 Mg Tab PO 325 mg QDAY [facility] Administration Atorvastatin Calcium 40 mg 02/08/21 22:00 02/10/21 21:15 Atorvastatin 40 Mg Tab PO 40 mg QHS DARNELL Administration Bisacodyl 10 mg 02/10/21 23:30 Bisacodyl 10 Mg Rect Supp [place] QDAY PRN Constipation Budesonide 0.5 mg 02/08/21 08:00 02/10/21 19:55 Budesonide 0.5 Mg/2 Ml Nebu IH 0.5 mg Q12HRT DARNELL Administration Docusate Sodium 100 mg 02/10/21 23:45 02/10/21 23:45 Docusate Sodium 100 Mg Cap PO 100 mg BID DARNELL Administration Hydralazine HCl 10 mg 02/08/21 01:24 02/10/21 00:55 Hydralazine 20 Mg/1 Ml Inj IV 10 mg Q6H PRN Administration htn Sodium Chloride 100 mls @ 999 mls/hr 02/10/21 09:30 Nacl 0.9% IV LIZANDRO PRN Hypotension Isosorbide Mononitrate 60 mg 02/10/21 10:00 02/10/21 10:00 Isosorbide Mononitrate Er 60 Mg Tab PO Not Given QDAY [facility] Lanthanum Carbonate 1,000 mg 02/08/21 07:30 02/10/21 18:01 Lanthanum Carbonate 500 Mg Tab PO 1,000 mg BIDAC [facility] Administration Metoprolol Tartrate 100 mg 02/11/21 10:00 Metoprolol Tartrate 100 Mg Tab PO BID [facility] Nifedipine 90 mg 02/10/21 10:00 02/10/21 10:24 Nifedipine Xl 90 Mg Tab PO Not Given QDAY [facility] Nitroglycerin 0.4 mg 02/08/21 01:19 Nitroglycerin 0.4 Mg Tab Subl SL .Q5MIN PRN Chest Pain Pantoprazole Sodium 40 mg 02/08/21 07:30 02/10/21 09:22 Pantoprazole 40 Mg Tab PO 40 mg QDAC DARNELL Administration Prazosin HCl 5 mg 02/10/21 22:00 02/10/21 21:15 Prazosin 5 Mg Cap PO 5 mg HS DARNELL Administration Sodium Bicarbonate 650 mg 02/08/21 10:00 02/10/21 21:15 Sodium Bicarbonate 650 Mg Tab PO 650 mg BID DARNELL Administration Nutrition/Malnutrition Assess - Dietary Evaluation Nutrition/Malnutrition Findings: Nutrition Notes Start: 02/08/21 13:58 Freq: Status: Active Protocol: Document 02/08/21 13:58 (Rec: 02/08/21 14:00 [email or web address]) Nutrition Notes Need for Assessment generated from: Education Initial or Follow up Brief Note Current Diagnosis CKD (stage V CKD),COPD, Coronary Artery Disease, Hyperlipidemia Other Pertinent Diagnosis on HD Current Diet Cardiac Subjective/Other Information Screen for Coumadin education. Pt reports being on Coumadin for 2 years and understands vitamin interaction. Pt accepted handout. Nutrition Intervention Change Diet Order: Add renal Teaching Recipient Patient Learning Readiness Good Teaching Methods Handout Response to Teaching Verbalize understanding Education Handouts Provided Vitamin K and Medication Interactions Barriers to Learning No Barriers RD phone number provided Yes Patient aware of follow up options Yes Revisit per MD consult or patient Sign Off request:
[2021-02-11] MEDS: BUDESONIDE 0.5 MG/2 ML NEBU IH SCH ×2 (08:04→20:26)
[2021-02-11] MEDS: IPRATROPIUM/ALBUTEROL SULFATE 3 ML AMPUL.NEB IH SCH ×3 (08:04→20:26)
--- NOTE | 2021-02-11 09:19 | Progress Note ---
Subjective Principal diagnosis: NSTEMI Interval history: Nephrology progress note Patient was seen today for follow-up of multiple renal related issues, as well as dialysis standpoint patient says that he does feel that he has fluid in his chest but no labored breathing or shortness of breath He is requesting if we could ultrafiltrate him 1 or 2 kg No complaints of any chest pain pressure or shortness of breath Interdisciplinary notes that also reviewed Events of 24 hours vitals labs intake output medications were reviewed Past medical history: Reviewed Family history: Reviewed Social history: Reviewed Allergies: Reviewed Physical examination: Vitals: Reviewed HEENT: No pallor or icterus oral mucosa moist Neck: Supple no JVD no thyromegaly Chest: Bilateral clear to auscultation anteriorly Heart: Regular rate and rhythm S1-S2 heard no S3-S4 Abdomen: Soft nontender no voluntary guarding rigidity rebound Extremity: Dry skin less than 1+ peripheral edema Psychiatric: No evidence of agitation and aggression noted Dermatology: No petechial rashes Labs and x-rays: Reviewed from today Assessment and plan #ESRD: Patient is currently on maintenance hemodialysis and will continue to dialyze Saturday for now Next dialysis will be after cardiac catheterization we will arrange for ultrafiltration today for 2 hours 2 kg From renal standpoint his potassium is 4.7 BUN 45 creatinine is 9.7 which was 88 and 15.6 on February 10 #Rising troponin: Currently being followed by cardiology service #Anemia in end-stage renal disease: Continue to monitor hemoglobin erythropoietin as needed, last hemoglobin was 9.4, will give him erythropoietin 20,000 units a day #Hypertension and volume continue to monitor goal systolic blood pressure currently less than 160 predialysis other days around 140 #Bone mineral disorder and secondary hyperparathyroidism periodically check calcium phosphorus and PTH #Diet and nutrition: Patient should be on high protein diet, 1200 cc fluid restriction #Multiple other comorbidities If you have any questions in regard to this patient's renal care please feel fr ee to call me at [phone] We'll continue to follow and make recommendation for renal standpoint Objective - Vital Signs Vital signs: Vital Signs - 12hr 02/10/21 02/10/21 02/11/21 23:28 23:31 04:15 Temperature 98.1 F 98.3 F Pulse Rate 95 H 98 H 80 Respiratory 18 18 Rate Blood Pressure 117/50 108/82 138/76 O2 Sat by Pulse 95 95 Oximetry - Lab 02/10/21 04:59 02/11/21 05:14 Most recent lab results Calcium 8.7 mg/dL (8.4-10.2) 02/11/21 05:14 Medications & Allergies - Medications Allergies/Adverse Reactions: Allergies atorvastatin calcium [From Lipitor] Allergy (Mild, Verified 09/23/20 12:30) Unknown ACHES ciprofloxacin [From Cipro] Allergy (Mild, Verified 09/23/20 12:30) Bleeding NOSE BLEED ciprofloxacin HCl [From Cipro] Allergy (Mild, Verified 09/23/20 12:30) Bleeding NOSE BLEED simvastatin Allergy (Mild, Verified 09/23/20 12:30) Unknown ACHES Home Medications: Home Medications Medication Instructions Recorded Confirmed Last Taken Type Cholecalciferol (Vitamin D3) 1,000 unit PO QDAY 11/07/19 09/26/20 09/22/20 History [Vitamin D3 2,000 UNIT CAP] ALBUTEROL NEB's [Proventil 0.083% 2.5 mg IH Q6HRT PRN #50 nebu 09/28/20 Unknown Rx NEBS] Albuterol Sulfate [Proair 90 mcg IH QID PRN 30 Days #1 09/28/20 Unknown Rx Respiclick] aer.[email or web address] AtorvaSTATin 10 mg PO QHS #30 tablet 09/28/20 Unknown Rx Budesonide [Pulmicort Respules] 0.5 mg IH Q12HRT #30 nebu 09/28/20 Unknown Rx Cholecalciferol Vit D3 [Vitamin D3 1,000 unit PO QDAY tablet 09/28/20 Unknown Rx 1,000 UNIT TAB] Epoetin Eric 10,000 Unit [Procrit] 10,000 unit IV LIZANDRO PRN vial 09/28/20 Unknown Rx Famotidine [Pepcid] 10 mg PO BID #60 tablet 09/28/20 Unknown Rx Ipratropium/Albuterol Sulfate 1 ampul IH TIDRT #50 ampul.neb 09/28/20 Unknown Rx [DUONEB *Not for PRN Use*] Lanthanum Carbonate [Fosrenol] 1,000 mg PO BIDAC #60 tab.chew 09/28/20 Unknown Rx Metoprolol [Lopressor TAB] 50 mg PO BID #60 tablet 09/28/20 Unknown Rx Prazosin 5 mg PO Q12HR #60 capsule 09/28/20 Unknown Rx Prednisone [predniSONE 10 mg 10 mg PO .TAPER #1 tab.ds.pk 09/28/20 Unknown Rx (6-Day Pack, 21 Tabs)] Sodium Bicarbonate 650 mg PO BID #60 09/28/20 Unknown Rx Spironolactone [Aldactone] 25 mg PO QDAY #30 tablet 09/28/20 Unknown Rx Terazosin HCl 10 mg PO HS #30 cap 09/28/20 Unknown Rx Tiotropium [Spiriva] 2 puff IH DAILY 30 Days #1 cap 09/28/20 Unknown Rx Warfarin [Coumadin] 7.5 mg PO QDAY #30 09/28/20 Unknown Rx Active Medications: Generic Name Dose Route Start Last Admin Trade Name Freq PRN Reason Stop Dose Admin Acetaminophen 650 mg 02/08/21 01:19 Acetaminophen 325 Mg Tab PO Q4H PRN Pain, Mild (1-3) Albuterol 2.5 mg 02/08/21 01:24 Albuterol 2.5 Mg/3 Ml Nebu IH Q6HRT PRN Shortness Of Breath Albuterol/Ipratropium 1 ampul 02/08/21 08:00 02/11/21 08:04 Ipratropium/Albuterol Sulfate 3 Ml Ampul.Neb IH 1 ampul TIDRT DARNELL Administration Aspirin 325 mg 02/09/21 10:00 02/10/21 09:22 Aspirin 325 Mg Tab PO 325 mg QDAY DARNELL Administration Atorvastatin Calcium 40 mg 02/08/21 22:00 02/10/21 21:15 Atorvastatin 40 Mg Tab PO 40 mg QHS DARNELL Administration Bisacodyl 10 mg 02/10/21 23:30 Bisacodyl 10 Mg Rect Supp [place] QDAY PRN Constipation Budesonide 0.5 mg 02/08/21 08:00 02/11/21 08:04 Budesonide 0.5 Mg/2 Ml Nebu IH 0.5 mg Q12HRT DARNELL Administration Docusate Sodium 100 mg 02/10/21 23:45 02/10/21 23:45 Docusate Sodium 100 Mg Cap PO 100 mg BID DARNELL Administration Hydralazine HCl 10 mg 02/08/21 01:24 02/10/21 00:55 Hydralazine 20 Mg/1 Ml Inj IV 10 mg Q6H PRN Administration htn Sodium Chloride 100 mls @ 999 mls/hr 02/10/21 09:30 Nacl 0.9% IV LIZANDRO PRN Hypotension Isosorbide Mononitrate 60 mg 02/10/21 10:00 02/10/21 10:00 Isosorbide Mononitrate Er 60 Mg Tab PO Not Given QDAY DARNELL Lanthanum Carbonate 1,000 mg 02/08/21 07:30 02/10/21 18:01 Lanthanum Carbonate 500 Mg Tab PO 1,000 mg BIDAC DARNELL Administration Metoprolol Tartrate 100 mg 02/11/21 10:00 Metoprolol Tartrate 100 Mg Tab PO BID DARNELL Nifedipine 90 mg 02/10/21 10:00 02/10/21 10:24 Nifedipine Xl 90 Mg Tab PO Not Given QDAY DARNELL Nitroglycerin 0.4 mg 02/08/21 01:19 Nitroglycerin 0.4 Mg Tab Subl SL .Q5MIN PRN Chest Pain Pantoprazole Sodium 40 mg 02/08/21 07:30 02/10/21 09:22 Pantoprazole 40 Mg Tab PO 40 mg QDAC DARNELL Administration Prazosin HCl 5 mg 02/10/21 22:00 02/10/21 21:15 Prazosin 5 Mg Cap PO 5 mg HS DARNELL Administration Sodium Bicarbonate 650 mg 02/08/21 10:00 02/10/21 21:15 Sodium Bicarbonate 650 Mg Tab PO 650 mg BID DARNELL Administration
[2021-02-11] MEDS ORDERED: EPOETIN ALFA-EPBX 20,000 UNIT/1 ML VIAL SUB-Q ONE ×2 (09:30→12:00)
[2021-02-11] MEDS: LANTHANUM CARBONATE 500 MG TAB PO SCH ×2 (09:30→16:20)
--- NOTE | 2021-02-11 09:43 | Progress Note ---
Assessment and Plan 80 year old male NSTEMI Type I CAD/PCI Hypertension Hyperlipidemia PAF ESRD on HD COPD/mild pulmonry hypertension Echo reviewed (10/2020): EF 50-55%. LV Grade I diastolic Dysfunction. Mild TR RVSP 39.5. [facility] (2017): Left Main large and patent LAD proximal mid stents patent diagonal 1 ostial 80% mid to distal LAD patent circumflex is patent with mid stents widely patent OM1 ostial 80-90% patent RCA patent stents and normal LV function Lexiscan (08/2018) Reviewed:negative, No significant ischemia noted fixed mid anterior defect Tele reviewed: normal sinus rhythm Continue to hold warfarin Continue heparin gtt Plan for [facility] Saturday BP stable, continue Imdur 60, Metoprolol 100 BID, Procardia 90 QAY Continue ASA/Lipitor Subjective Date of service: 02/11/21 Principal diagnosis: NSTEMI Interval history: Pt sitting in bed. He denies chest pain/sob/dizziness Objective Vital Signs Temp Pulse Pulse Pulse Resp Resp BP 02/11/21 04:15 98.3 F 80 18 138/76 02/10/21 23:31 98 H 108/82 02/10/21 23:28 98.1 F 95 H 18 117/50 02/10/21 21:15 78 128/48 02/10/21 20:29 92 H 02/10/21 20:00 78 18 02/10/21 19:57 88 18 02/10/21 19:23 98.4 F 78 18 128/48 02/10/21 18:15 86 02/10/21 16:54 97.9 F 86 18 135/71 02/10/21 14:00 96 H 18 02/10/21 13:30 97.9 F 70 20 155/72 02/10/21 13:15 58 L 162/57 02/10/21 13:00 71 158/62 02/10/21 12:45 72 154/70 02/10/21 12:30 75 157/77 02/10/21 12:15 68 162/86 02/10/21 12:00 62 168/75 02/10/21 11:45 75 155/65 02/10/21 11:30 75 165/91 02/10/21 11:15 80 142/68 02/10/21 11:00 72 136/60 02/10/21 10:45 76 155/76 02/10/21 10:30 78 177/90 02/10/21 10:15 80 160/90 02/10/21 10:05 98.4 F 85 20 163/82 Pulse Ox 02/11/21 04:15 95 02/10/21 23:31 02/10/21 23:28 95 02/10/21 21:15 02/10/21 20:29 02/10/21 20:00 93 02/10/21 19:57 02/10/21 19:23 93 02/10/21 18:15 02/10/21 16:54 95 02/10/21 14:00 02/10/21 13:30 02/10/21 13:15 02/10/21 13:00 02/10/21 12:45 02/10/21 12:30 02/10/21 12:15 02/10/21 12:00 02/10/21 11:45 02/10/21 11:30 02/10/21 11:15 02/10/21 11:00 02/10/21 10:45 02/10/21 10:30 02/10/21 10:15 02/10/21 10:05 - Physical Examination General: No Apparent Distress HEENT: Positive: PERRL, Normocephaly, Mucus Membranes Moist Neck: Positive: neck supple, trachea midline Cardiac: Positive: Reg Rate and Rhythm Lungs: Positive: Normal Breath Sounds Neuro: Positive: Grossly Intact Abdomen: Positive: Unremarkable, Soft Skin: Negative: Rash, Wound Musculoskeletal: No Pain Extremities: Present: upper extr. pulses, lower extr. pulses. Absent: edema - Labs and Meds Coagulation 02/11/21 Range/Units 05:14 PT 18.6 H (12.2-14.9) Sec. INR 1.55 H (0.87-1.13) Comprehensive Metabolic Panel 02/11/21 Range/Units 05:14 Sodium 141 (137-145) mmol/L Potassium 4.7 (3.6-5.0) mmol/L Chloride 99.4 (98-107) mmol/L Carbon Dioxide 27 D (22-30) mmol/L BUN 45 H (9-20) mg/dL Creatinine 9.7 H (0.8-1.3) mg/dL Glucose 102 H (75-100) mg/dL Calcium 8.7 (8.4-10.2) mg/dL - Imaging and Cardiology EKG: report reviewed, image reviewed Echo: report reviewed (Echo reviewed (02/08/21): EF 50-55%. LV Grade I diastolic Dysfunction. Mild LVH) Cardiac cath: report reviewed ([facility] (2018): Left Main large and patent LAD proximal mid stents patent diagonal 1 ostial 80% mid to distal LAD patent circumflex is patent with mid stents widely ) - EKG Sinus rhythms and dysrhythmias: sinus rhythm
[2021-02-11] MEDS: DOCUSATE SODIUM 100 MG CAP PO SCH ×2 (10:28→21:07)
[2021-02-11] MEDS: SODIUM BICARBONATE 650 MG TAB PO SCH ×2 (10:28→21:07)
[2021-02-11] MEDS: ASPIRIN 325 MG TAB PO SCH (10:28)
[2021-02-11] MEDS: NIFEdipine XL 90 MG TAB PO SCH (10:29)
[2021-02-11] MEDS: METOPROLOL TARTRATE 100 MG TAB PO SCH ×2 (10:29→21:06)
[2021-02-11] MEDS: PANTOPRAZOLE 40 MG TAB PO SCH (10:30)
[2021-02-11] MEDS: PRAZOSIN 5 MG CAP PO SCH (21:06)
[2021-02-12 06:31] LABS: Hematocrit 27.5 % (35.5-45.6); Hemoglobin 9.1 gm/dl (11.8-15.2)
[2021-02-12 06:35] LABS: INR 1.42 (0.87-1.13)
--- NOTE | 2021-02-12 08:36 | Progress Note ---
Assessment and Plan Assessment and plan: (1) Acute coronary syndrome Current Visit: Yes Status: Acute Plan to address problem: Admit the patient to the cardiac telemetry. Put the patient on chest pain pathway. Aspirin 81 mg p.o. daily. Lipitor 80 mg p.o. daily. Warfarin 7.5 mg p.o. daily. We will do the serial cardiac enzyme. We also do echocardiogram. Will consult cardiology for further evaluation and treatment. Recheck lipid panel and BMP in the morning (2) Acute exacerbation of chronic obstructive pulmonary disease (COPD) Current Visit: No Status: Acute Plan to address problem: Oxygen via nasal cannula 3 L/min. DuoNeb by nebulizer every 4 hours. Spiriva 2 puffs inhaler daily (3) Acute on chronic renal failure Current Visit: No Status: Acute Plan to address problem: Patient has end-stage renal disease on dialysis. Will consult nephrology to continue the dialysis. BMP in the morning (4) Atrial fibrillation with rapid ventricular response Current Visit: No Status: Acute Plan to address problem: Patient heart rate is stable. We will continue the home medication. Will consult cardiology for further evaluation and treatment. (5) DVT prophylaxis Current Visit: No Status: Acute Plan to address problem: Patient is on warfarin with therapeutic INR for DVT prophylaxis. Protonix 40 mg p.o. daily for GI prophylaxis. Patient is a full code. 02/08/2021 -Patient has elevated troponin level and chest pain. Patient has end-stage renal disease on hemodialysis. That may contribute to the increase in troponin level. We consulted cardiology for further evaluation. -Nephrology on board for dialysis. -Patient has A. fib and on Coumadin. INR is subtherapeutic. Pharmacy consult to dose. Rate controlled -Continues treatment for COPD -Discussed with Dr. West and will do cardiac cath tomorrow or the day after 02/09/21 -NSTEMI, cardiology was consulted and patient is on heparin drip -Patient was on Coumadin as an outpatient, his INR was subtherapeutic yesterday, was not given Coumadin but INR this morning is therapeutic 2.0 -Patient has end-stage renal disease and not on hemodialysis, nephrology is following. -Discussed with Dr. West yesterday and will do cath either today or tomorrow. 02/10/2021 -Non-STEMI, management is per cardiology -INR is still high 1.99, cardiology stop heparin drip, will do cardiac cath on Saturday -ESRD nephrology following for dialysis 02/11/2021 - NSTEMI; patient will have cardiac cath on Saturday. Cardiology is following -ESRD on hemodialysis -Coumadin is on hold for cardiac cath 02/12/2021 -Non-STEMI, cardiology is following, cardiac cath on Saturday -ESRD on hemodialysis -Coumadin was hold and INR this morning was 1.42 History Interval history: Patient was seen and evaluated this morning Patient denied chest pain today, no shortness of breath Hospitalist Physical - Physical exam Narrative exam: Not in cardiopulmonary distress. The patient is obese. Vital signs as documented. Head exam is unremarkable. No scleral icterus . Neck is without jugular venous distension, thyromegaly, or carotid bruits. Lungs are clear to auscultation. Cardiac exam reveals regular rate and Rhythm. Abdominal exam reveals normal bowel sounds, nontender, no organomegaly. Extremities are nonedematous and both femoral and pedal pulses are normal. PHOTOGRAPHER'S MODEL: Alert and oriented 3. No focal weakness. - Constitutional Vitals: Temp Pulse Resp BP Pulse Ox 98.7 F 84 18 142/77 94 02/12/21 04:12 02/12/21 08:00 02/12/21 04:12 02/12/21 07:59 02/12/21 08:00 General appearance: Present: no acute distress HEART Score - HEART Score EKG: Non-specific Age: > 65 Risk factors: > 3 risk factors or hx of atherosclerotic disease Troponin: Troponin T 3.310 ng/mL (0.00-0.029) H* 02/12/21 04:41 Troponin: > 3x normal limit - Critical Actions Critical Actions: >7 pts:50-65% risk of adverse cardiac event. Early invasive measures Results - Labs CBC & Chem 7: 02/12/21 04:41 02/11/21 05:14 Labs: Laboratory Last Values WBC 5.7 K/mm3 (4.5-11.0) 02/10/21 04:59 RBC 3.37 M/mm3 (3.65-5.03) L 02/10/21 04:59 Hgb 9.1 gm/dl (11.8-15.2) L 02/12/21 04:41 Hct 27.5 % (35.5-45.6) L 02/12/21 04:41 MCV 86 fl (84-94) 02/10/21 04:59 MCH 28 pg (28-32) 02/10/21 04:59 MCHC 33 % (32-34) 02/10/21 04:59 RDW 16.2 % (13.2-15.2) H 02/10/21 04:59 Plt Count 143 K/mm3 (140-440) 02/12/21 04:41 Lymph % (Auto) 16.6 % (13.4-35.0) 02/07/21 20:42 [place] % (Auto) 12.2 % (0.0-7.3) H 02/07/21 20:42 Eos % (Auto) 1.3 % (0.0-4.3) 02/07/21 20:42 Baso % (Auto) 0.6 % (0.0-1.8) 02/07/21 20:42 Lymph # (Auto) 1.3 K/mm3 (1.2-5.4) 02/07/21 20:42 [place] # (Auto) 1.0 K/mm3 (0.0-0.8) H 02/07/21 20:42 Eos # (Auto) 0.1 K/mm3 (0.0-0.4) 02/07/21 20:42 Baso # (Auto) 0.1 K/mm3 (0.0-0.1) 02/07/21 20:42 Seg Neutrophils % 69.3 % (40.0-70.0) 02/07/21 20:42 Seg Neutrophils # 5.6 K/mm3 (1.8-7.7) 02/07/21 20:42 PT 17.3 Sec. (12.2-14.9) H 02/12/21 04:41 INR 1.42 (0.87-1.13) H 02/12/21 04:41 APTT 45.1 Sec. (24.2-36.6) H 02/08/21 16:07 Heparin Anti-Xa Level 0.41 U.I./ml (0.3-0.7) 02/08/21 23:01 Sodium 141 mmol/L (137-145) 02/11/21 05:14 Potassium 4.7 mmol/L (3.6-5.0) 02/11/21 05:14 Chloride 99.4 mmol/L (98-107) 02/11/21 05:14 Carbon Dioxide 27 mmol/L (22-30) D 02/11/21 05:14 Anion Gap 19 mmol/L 02/11/21 05:14 BUN 45 mg/dL (9-20) H 02/11/21 05:14 Creatinine 9.7 mg/dL (0.8-1.3) H 02/11/21 05:14 Estimated GFR 6 ml/min 02/11/21 05:14 BUN/Creatinine Ratio 5 % 02/11/21 05:14 Glucose 102 mg/dL (75-100) H 02/11/21 05:14 Calcium 8.7 mg/dL (8.4-10.2) 02/11/21 05:14 Total Bilirubin 0.20 mg/dL (0.1-1.2) 02/07/21 20:42 AST 25 units/L (5-40) 02/07/21 20:42 ALT 11 units/L (7-56) 02/07/21 20:42 Alkaline Phosphatase 57 units/L (35-129) 02/07/21 20:42 Troponin T 3.310 ng/mL (0.00-0.029) H* 02/12/21 04:41 Total Protein 7.2 g/dL (6.3-8.2) 02/07/21 20:42 Albumin 4.4 g/dL (3.9-5) 02/07/21 20:42 Albumin/Globulin Ratio 1.6 % 02/07/21 20:42 Triglycerides 274 mg/dL (2-149) H 02/07/21 20:42 Cholesterol 193 mg/dL (50-199) 02/07/21 20:42 LDL Cholesterol Direct 104 mg/dL (50-130) 02/07/21 20:42 HDL Cholesterol 52 mg/dL (40-59) 02/07/21 20:42 Cholesterol/HDL Ratio 3.71 % 02/07/21 20:42 Nasal Screen MRSA (PCR) Negative (Negative) 02/08/21 02:00 Hepatitis A IgM Ab Non-reactive (NonReactive) 02/10/21 10:30 Hep Bs Antigen Non-reactive (Negative) 02/10/21 10:30 Hep B Core IgM Ab Non-reactive (NonReactive) 02/10/21 10:30 Hepatitis C Antibody Non-reactive (NonReactive) 02/10/21 10:30 [place]/IV: Voiding Method Toilet Active Medications - Current Medications Current Medications: Generic Name Dose Route Start Last Admin Trade Name Freq PRN Reason Stop Dose Admin Acetaminophen 650 mg 02/08/21 01:19 Acetaminophen 325 Mg Tab PO Q4H PRN Pain, Mild (1-3) Albuterol 2.5 mg 02/08/21 01:24 Albuterol 2.5 Mg/3 Ml Nebu IH Q6HRT PRN Shortness Of Breath Albuterol/Ipratropium 1 ampul 02/08/21 08:00 02/11/21 20:26 Ipratropium/Albuterol Sulfate 3 Ml Ampul.Neb IH 1 ampul TIDRT DARNELL Administration Aspirin 325 mg 02/09/21 10:00 02/11/21 10:28 Aspirin 325 Mg Tab PO 325 mg QDAY DARNELL Administration Atorvastatin Calcium 40 mg 02/08/21 22:00 02/11/21 21:05 Atorvastatin 40 Mg Tab PO Not Given QHS DARNELL Bisacodyl 10 mg 02/10/21 23:30 Bisacodyl 10 Mg Rect Supp IN QDAY PRN Constipation Budesonide 0.5 mg 02/08/21 08:00 02/11/21 20:26 Budesonide 0.5 Mg/2 Ml Nebu IH 0.5 mg Q12HRT DARNELL Administration Docusate Sodium 100 mg 02/10/21 23:45 02/11/21 21:07 Docusate Sodium 100 Mg Cap PO 100 mg BID DARNELL Administration Hydralazine HCl 10 mg 02/08/21 01:24 02/10/21 00:55 Hydralazine 20 Mg/1 Ml Inj IV 10 mg Q6H PRN Administration htn Sodium Chloride 100 mls @ 999 mls/hr 02/10/21 09:30 Nacl 0.9% IV LIZANDRO PRN Hypotension Isosorbide Mononitrate 60 mg 02/10/21 10:00 02/11/21 10:29 Isosorbide Mononitrate Er 60 Mg Tab PO 60 mg QDAY DARNELL Administration Lanthanum Carbonate 1,000 mg 02/08/21 07:30 02/11/21 16:20 Lanthanum Carbonate 500 Mg Tab PO 1,000 mg BIDAC DARNELL Administration Metoprolol Tartrate 100 mg 02/11/21 10:00 02/11/21 21:06 Metoprolol Tartrate 100 Mg Tab PO 100 mg BID DARNELL Administration Nifedipine 90 mg 02/10/21 10:00 02/11/21 10:29 Nifedipine Xl 90 Mg Tab PO 90 mg QDAY DARNELL Administration Nitroglycerin 0.4 mg 02/08/21 01:19 Nitroglycerin 0.4 Mg Tab Subl SL .Q5MIN PRN Chest Pain Pantoprazole Sodium 40 mg 02/08/21 07:30 02/11/21 10:30 Pantoprazole 40 Mg Tab PO 40 mg QDAC DARNELL Administration Prazosin HCl 5 mg 02/10/21 22:00 02/11/21 21:06 Prazosin 5 Mg Cap PO 5 mg HS DARNELL Administration Sodium Bicarbonate 650 mg 02/08/21 10:00 02/11/21 21:07 Sodium Bicarbonate 650 Mg Tab PO 650 mg BID DARNELL Administration Nutrition/Malnutrition Assess - Dietary Evaluation Nutrition/Malnutrition Findings: Nutrition Notes Start: 02/08/21 13:58 Freq: Status: Active Protocol: Document 02/08/21 13:58 (Rec: 02/08/21 14:00 [id number]) Nutrition Notes Need for Assessment generated from: Education Initial or Follow up Brief Note Current Diagnosis CKD (stage V CKD),COPD, Coronary Artery Disease, Hyperlipidemia Other Pertinent Diagnosis on HD Current Diet Cardiac Subjective/Other Information Screen for Coumadin education. Pt reports being on Coumadin for 2 years and understands vitamin interaction. Pt accepted handout. Nutrition Intervention Change Diet Order: Add renal Teaching Recipient Patient Learning Readiness Good Teaching Methods Handout Response to Teaching Verbalize understanding Education Handouts Provided Vitamin K and Medication Interactions Barriers to Learning No Barriers RD phone number provided Yes Patient aware of follow up options Yes Revisit per MD consult or patient Sign Off request:
--- NOTE | 2021-02-12 09:23 | Progress Note ---
Subjective Principal diagnosis: NSTEMI Interval history: Nephrology progress note Patient was seen today for follow-up of multiple renal related issues, as well as dialysis standpoint does not have any current complaint, No complaints of any shortness of breath or chest pain Troponin still trending up pending cardiac catheterization tomorrow Interdisciplinary notes that also reviewed Events of 24 hours vitals labs intake output medications were reviewed Past medical history: Reviewed Family history: Reviewed Social history: Reviewed Allergies: Reviewed Physical examination: Vitals: Reviewed HEENT: No pallor or icterus oral mucosa moist Neck: Supple no JVD no thyromegaly Chest: Bilateral clear to auscultation anteriorly Heart: Regular rate and rhythm S1-S2 heard no S3-S4 Abdomen: Soft nontender no voluntary guarding rigidity rebound Extremity: Dry skin no swelling today Psychiatric: No evidence of agitation and aggression noted Dermatology: No petechial rashes Labs and x-rays: Reviewed from today Assessment and plan #ESRD: Patient is currently on maintenance hemodialysis and will continue to dialyze Saturday for now patient will need hemodialysis Saturday and Saturday, this can be done after cardiac catheterization tomorrow #Rising troponin currently being followed by cardiology patient is symptom free, #Anemia in end-stage renal disease: Continue to monitor hemoglobin erythropoietin as needed, last hemoglobin was 9.4, Was given erythropoietin 20,000 units #Hypertension and volume continue to monitor goal systolic blood pressure currently less than 160 predialysis other days around 140 #Bone mineral disorder and secondary hyperparathyroidism periodically check calcium phosphorus and PTH #Diet and nutrition: Patient should be on high protein diet, 1200 cc fluid restriction #Multiple other comorbidities If you have any questions in regard to this patient's renal care please feel free to call me at [phone] We'll continue to follow and make recommendation for renal standpoint Objective - Vital Signs Vital signs: Vital Signs - 12hr 02/11/21 02/12/21 02/12/21 23:38 02:00 04:12 Temperature 98.6 F 98.7 F Pulse Rate 78 77 81 Respiratory 18 18 Rate Blood Pressure 117/56 125/66 O2 Sat by Pulse 91 95 Oximetry 02/12/21 02/12/21 07:59 08:00 Temperature Pulse Rate 86 84 Respiratory Rate Blood Pressure 142/77 O2 Sat by Pulse 93 94 Oximetry - Lab 02/12/21 04:41 02/11/21 05:14 Most recent lab results Calcium 8.7 mg/dL (8.4-10.2) 02/11/21 05:14 Medications & Allergies - Medications Allergies/Adverse Reactions: Allergies atorvastatin calcium [From Lipitor] Allergy (Mild, Verified 02/12/21 10:43) Unknown ACHES, RASH ciprofloxacin [From Cipro] Allergy (Mild, Verified 09/23/20 12:30) Bleeding NOSE BLEED ciprofloxacin HCl [From Cipro] Allergy (Mild, Verified 09/23/20 12:30) Bleeding NOSE BLEED simvastatin Allergy (Mild, Verified 09/23/20 12:30) Unknown ACHES Home Medications: Home Medications Medication Instructions Recorded Confirmed Last Taken Type Cholecalciferol (Vitamin D3) 1,000 unit PO QDAY 11/07/19 02/11/21 09/22/20 History [Vitamin D3 2,000 UNIT CAP] ALBUTEROL NEB's [Proventil 0.083% 2.5 mg IH Q6HRT PRN #50 nebu 09/28/20 02/11/21 Unknown Rx NEBS] Albuterol Sulfate [Proair 90 mcg IH QID PRN 30 Days #1 09/28/20 02/11/21 Unknown Rx Respiclick] [email or web address] AtorvaSTATin 10 mg PO QHS #30 tablet 09/28/20 02/11/21 Unknown Rx Budesonide [Pulmicort Respules] 0.5 mg IH Q12HRT #30 nebu 09/28/20 02/11/21 Unknown Rx Cholecalciferol Vit D3 [Vitamin D3 1,000 unit PO QDAY tablet 09/28/20 02/11/21 Unknown Rx 1,000 UNIT TAB] Epoetin Eric 10,000 Unit [Procrit] 10,000 unit IV LIZANDRO PRN vial 09/28/20 02/11/21 Unknown Rx Famotidine [Pepcid] 10 mg PO BID #60 tablet 09/28/20 02/11/21 Unknown Rx Ipratropium/Albuterol Sulfate 1 ampul IH TIDRT #50 ampul.neb 09/28/20 02/11/21 Unknown Rx [DUONEB *Not for PRN Use*] Lanthanum Carbonate [Fosrenol] 1,000 mg PO BIDAC #60 tab.chew 09/28/20 02/11/21 Unknown Rx Metoprolol [Lopressor TAB] 50 mg PO BID #60 tablet 09/28/20 02/11/21 Unknown Rx Prazosin 5 mg PO Q12HR #60 capsule 09/28/20 02/11/21 Unknown Rx Sodium Bicarbonate 650 mg PO BID #60 09/28/20 02/11/21 Unknown Rx Spironolactone [Aldactone] 25 mg PO QDAY #30 tablet 09/28/20 02/11/21 Unknown Rx Terazosin HCl 10 mg PO HS #30 cap 09/28/20 02/11/21 Unknown Rx Tiotropium [Spiriva] 2 puff IH DAILY 30 Days #1 cap 09/28/20 02/11/21 Unknown Rx Active Medications: Generic Name Dose Route Start Last Admin Trade Name Freq PRN Reason Stop Dose Admin Acetaminophen 650 mg 02/08/21 01:19 Acetaminophen 325 Mg Tab PO Q4H PRN Pain, Mild (1-3) Albuterol 2.5 mg 02/08/21 01:24 Albuterol 2.5 Mg/3 Ml Nebu IH Q6HRT PRN Shortness Of Breath Albuterol/Ipratropium 1 ampul 02/08/21 08:00 02/11/21 20:26 Ipratropium/Albuterol Sulfate 3 Ml Ampul.Neb IH 1 ampul TIDRT DARNELL Administration Aspirin 325 mg 02/09/21 10:00 02/11/21 10:28 Aspirin 325 Mg Tab PO 325 mg QDAY DARNELL Administration Atorvastatin Calcium 40 mg 02/08/21 22:00 02/11/21 21:05 Atorvastatin 40 Mg Tab PO Not Given QHS DARNELL Bisacodyl 10 mg 02/10/21 23:30 Bisacodyl 10 Mg Rect Supp HI QDAY PRN Constipation Budesonide 0.5 mg 02/08/21 08:00 02/11/21 20:26 Budesonide 0.5 Mg/2 Ml Nebu IH 0.5 mg Q12HRT DARNELL Administration Docusate Sodium 100 mg 02/10/21 23:45 02/11/21 21:07 Docusate Sodium 100 Mg Cap PO 100 mg BID DARNELL Administration Hydralazine HCl 10 mg 02/08/21 01:24 02/10/21 00:55 Hydralazine 20 Mg/1 Ml Inj IV 10 mg Q6H PRN Administration htn Sodium Chloride 100 mls @ 999 mls/hr 02/10/21 09:30 Nacl 0.9% IV LIZANDRO PRN Hypotension Isosorbide Mononitrate 60 mg 02/10/21 10:00 02/11/21 10:29 Isosorbide Mononitrate Er 60 Mg Tab PO 60 mg QDAY DARNELL Administration Lanthanum Carbonate 1,000 mg 02/08/21 07:30 02/11/21 16:20 Lanthanum Carbonate 500 Mg Tab PO 1,000 mg BIDAC DARNELL Administration Metoprolol Tartrate 100 mg 02/11/21 10:00 02/11/21 21:06 Metoprolol Tartrate 100 Mg Tab PO 100 mg BID DARNELL Administration Nifedipine 90 mg 02/10/21 10:00 02/11/21 10:29 Nifedipine Xl 90 Mg Tab PO 90 mg QDAY DARNELL Administration Nitroglycerin 0.4 mg 02/08/21 01:19 Nitroglycerin 0.4 Mg Tab Subl SL .Q5MIN PRN Chest Pain Pantoprazole Sodium 40 mg 02/08/21 07:30 02/11/21 10:30 Pantoprazole 40 Mg Tab PO 40 mg QDAC DARNELL Administration Prazosin HCl 5 mg 02/10/21 22:00 02/11/21 21:06 Prazosin 5 Mg Cap PO 5 mg HS DARNELL Administration Sodium Bicarbonate 650 mg 02/08/21 10:00 02/11/21 21:07 Sodium Bicarbonate 650 Mg Tab PO 650 mg BID DARNELL Administration
[2021-02-12] MEDS: BUDESONIDE 0.5 MG/2 ML NEBU IH SCH ×2 (09:52→20:17)
[2021-02-12] MEDS: IPRATROPIUM/ALBUTEROL SULFATE 3 ML AMPUL.NEB IH SCH ×3 (09:55→20:17)
[2021-02-12] MEDS: SODIUM BICARBONATE 650 MG TAB PO SCH ×2 (10:13→21:35)
[2021-02-12] MEDS: DOCUSATE SODIUM 100 MG CAP PO SCH ×2 (10:14→21:35)
[2021-02-12] MEDS: METOPROLOL TARTRATE 100 MG TAB PO SCH ×2 (10:14→21:35)
[2021-02-12] MEDS: ASPIRIN 325 MG TAB PO SCH (10:14)
[2021-02-12] MEDS: NIFEdipine XL 90 MG TAB PO SCH (10:14)
[2021-02-12] MEDS: LANTHANUM CARBONATE 500 MG TAB PO SCH ×2 (10:16→17:03)
[2021-02-12] MEDS: PANTOPRAZOLE 40 MG TAB PO SCH (10:16)
--- NOTE | 2021-02-12 10:41 | Progress Note ---
Assessment and Plan 80 year old male NSTEMI Type I CAD/PCI Hypertension Hyperlipidemia PAF ESRD on HD COPD/mild pulmonry hypertension Echo reviewed (10/2020): EF 50-55%. LV Grade I diastolic Dysfunction. Mild TR RVSP 39.5. [facility] (2017): Left Main large and patent LAD proximal mid stents patent diagonal 1 ostial 80% mid to distal LAD patent circumflex is patent with mid stents widely patent OM1 ostial 80-90% patent RCA patent stents and normal LV function Lexiscan (08/2018) Reviewed:negative, No significant ischemia noted fixed mid anterior defect Tele reviewed: normal sinus rhythm Continue to hold warfarin Plan for [facility] Saturday BP stable, continue Imdur 60, Metoprolol 100 BID, Procardia 90 QAY Continue ASA/Lipitor Subjective Date of service: 02/12/21 Principal diagnosis: NSTEMI Interval history: Pt sitting in bed. He denies chest pain/sob/dizziness Objective Vital Signs Temp Pulse Pulse Pulse Resp Resp BP 02/12/21 08:00 84 02/12/21 07:59 86 142/77 02/12/21 04:12 98.7 F 81 18 125/66 02/12/21 02:00 77 02/11/21 23:38 98.6 F 78 18 117/56 02/11/21 21:06 79 106/55 02/11/21 20:28 76 20 02/11/21 20:00 79 18 02/11/21 19:57 98.2 F 79 18 106/55 02/11/21 17:27 76 02/11/21 16:43 98.1 F 84 12 02/11/21 13:55 78 10 L 02/11/21 12:32 97.2 F L 02/11/21 12:19 70 17 117/64 BP Pulse Ox 02/12/21 08:00 94 02/12/21 07:59 93 02/12/21 04:12 95 02/12/21 02:00 02/11/21 23:38 91 02/11/21 21:06 02/11/21 20:28 02/11/21 20:00 02/11/21 19:57 92 02/11/21 17:27 02/11/21 16:43 104/56 98 02/11/21 13:55 02/11/21 12:32 02/11/21 12:19 93 - Physical Examination General: No Apparent Distress HEENT: Positive: PERRL, Normocephaly, Mucus Membranes Moist Neck: Positive: neck supple, trachea midline Cardiac: Positive: Reg Rate and Rhythm Lungs: Positive: clear to auscultation, Normal Breath Sounds Neuro: Positive: Grossly Intact Abdomen: Positive: Unremarkable, Soft Skin: Negative: Rash, Wound Musculoskeletal: No Pain Extremities: Present: upper extr. pulses, lower extr. pulses. Absent: edema - Labs and Meds Coagulation 02/12/21 Range/Units 04:41 PT 17.3 H (12.2-14.9) Sec. INR 1.42 H (0.87-1.13) CBC 02/12/21 Range/Units 04:41 Hgb 9.1 L (11.8-15.2) gm/dl Hct 27.5 L (35.5-45.6) % Plt Count 143 (140-440) K/mm3 - Imaging and Cardiology EKG: report reviewed, image reviewed Echo: report reviewed (Echo reviewed (02/08/21): EF 50-55%. LV Grade I diastolic Dysfunction. Mild LVH) Cardiac cath: report reviewed ([facility] (2018): Left Main large and patent LAD proximal mid stents patent diagonal 1 ostial 80% mid to distal LAD patent circumflex is patent with mid stents widely ) - EKG Sinus rhythms and dysrhythmias: sinus rhythm
[2021-02-12] MEDS: PRAZOSIN 5 MG CAP PO SCH (21:34)
[2021-02-12] MEDS: PRAVASTATIN 80 MG TAB PO SCH (21:36)
[2021-02-13 05:11] LABS: INR 1.03 (0.87-1.13)
[2021-02-13 05:21] LABS: Calcium 8.4 mg/dL (8.4-10.2)
[2021-02-13 06:46] LABS: Hematocrit 25.8 % (35.5-45.6); Hemoglobin 8.5 gm/dl (11.8-15.2); Mean Corpuscular HGB Conc 33 % (32-34); Mean Corpuscular Volume 88 fl (84-94); Platelet Count 164 K/mm3 (140-440); Red Blood Count 2.94 M/mm3 (3.65-5.03); Red Cell Distribution Width 15.8 % (13.2-15.2)
[2021-02-13] MEDS ORDERED: HEPARIN/NS 5000 UNIT/500ML 1,000 ML IR ONE (07:00)
[2021-02-13] MEDS ORDERED: NITROGLYCERIN SYRINGE 3 ML ONE (07:01)
[2021-02-13] MEDS ORDERED: ASPIRIN 325 MG TAB ONE (07:01)
[2021-02-13] MEDS ORDERED: SODIUM CHLORIDE 0.9% 500 ML 500 ML ONE (07:05)
[2021-02-13] MEDS: fentaNYL 100 MCG/2 ML INJ ONE ×3 (07:51→08:40)
[2021-02-13] MEDS: MIDAZOLAM 2 MG/2 ML INJ ONE ×3 (07:52→08:40)
[2021-02-13] MEDS: LIDOCAINE (2%) 20 MG/1 ML VIAL 20 ML MDV INFILTRATI ONE ×2 (07:53→08:17)
[2021-02-13] MEDS: ASPIRIN 325 MG TAB PO SCH (08:15)
[2021-02-13] MEDS: HEPARIN 10,000 UNITS/10 ML VIAL ONE ×3 (08:25→08:57)
[2021-02-13] MEDS ORDERED: HEPARIN/NS 5000 UNIT/500ML 500 ML IR ONE (08:44)
--- NOTE | 2021-02-13 08:44 | Progress Note ---
Assessment and Plan Assessment and plan: 80-year-old male with history of CAD status post [place] x 2 and 3 cardiac stents, paroxysmal atrial fibrillation on warfarin, end-stage renal disease on hemodialysis Saturday, COPD, hyperlipidemia, anemia who presents with chest pain which is 5/10 now to since yesterday. He has a mild to moderate pulling sensation which is intermittent. No radiation. He has persistent shortness of breath which is unchanged due to COPD. Pain is similar to previous FL however the location is slightly different. He does not have any chest pain at this time. Pain has been episodic even at rest. Patient does not take antiplatelet therapy. He takes warfarin for atrial fibrillation. Patient received 2 doses of COVID-19 vaccine. In the emergency room patient initial troponin is 1.280 Next troponin 1.160 (1) Acute coronary syndrome Current Visit: Yes Status: Acute Plan to address problem: Admit the patient to the cardiac telemetry. Put the patient on chest pain pathway. Aspirin 81 mg p.o. daily. Lipitor 80 mg p.o. daily. Warfarin 7.5 mg p.o. daily. We will do the serial cardiac enzyme. We also do echocardiogram. Will consult cardiology for further evaluation and treatment. Recheck lipid panel and BMP in the morning (2) Acute exacerbation of chronic obstructive pulmonary disease (COPD) Current Visit: No Status: Acute Plan to address problem: Oxygen via nasal cannula 3 L/min. DuoNeb by nebulizer every 4 hours. Spiriva 2 puffs inhaler daily (3) Acute on chronic renal failure Current Visit: No Status: Acute Plan to address problem: Patient has end-stage renal disease on dialysis. Will consult nephrology to continue the dialysis. BMP in the morning (4) Atrial fibrillation with rapid ventricular response Current Visit: No Status: Acute Plan to address problem: Patient heart rate is stable. We will continue the home medication. Will consult cardiology for further evaluation and treatment. (5) NSTEMI (7)Secondary Coagulopathy (8) DVT prophylaxis Current Visit: No Status: Acute Plan to address problem: Patient is on warfarin with therapeutic INR for DVT prophylaxis. Protonix 40 mg p.o. daily for GI prophylaxis. Patient is a full code. 02/08/2021 -Patient has elevated troponin level and chest pain. Patient has end-stage renal disease on hemodialysis. That may contribute to the increase in troponin level. We consulted cardiology for further evaluation. -Nephrology on board for dialysis. -Patient has A. fib and on Coumadin. INR is subtherapeutic. Pharmacy consult to dose. Rate controlled -Continues treatment for COPD -Discussed with Dr. West and will do cardiac cath tomorrow or the day after 02/09/21 -NSTEMI, cardiology was consulted and patient is on heparin drip -Patient was on Coumadin as an outpatient, his INR was subtherapeutic yesterday, was not given Coumadin but INR this morning is therapeutic 2.0 -Patient has end-stage renal disease and not on hemodialysis, nephrology is following. -Discussed with Dr. West yesterday and will do cath either today or tomorrow. 02/10/2021 -Non-STEMI, management is per cardiology -INR is still high 1.99, cardiology stop heparin drip, will do cardiac cath on Saturday -ESRD nephrology following for dialysis 02/11/2021 - NSTEMI; patient will have cardiac cath on Saturday. Cardiology is following -ESRD on hemodialysis -Coumadin is on hold for cardiac cath 02/12/2021 -Non-STEMI, cardiology is following, cardiac cath on Saturday -ESRD on hemodialysis -Coumadin was hold and INR this morning was 1.42 02/13/21: Patient for cardiac catherization this am. HD following procedure. Disposition based on outcome. Hospitalist Physical - Constitutional Vitals: Temp Pulse Resp BP Pulse Ox 98 F 73 18 113/50 94 02/13/21 04:18 02/13/21 04:18 02/13/21 04:18 02/13/21 04:18 02/13/21 04:18 General appearance: Present: no acute distress HEART Score - HEART Score EKG: Non-specific Age: > 65 Risk factors: > 3 risk factors or hx of atherosclerotic disease Troponin: Troponin T 2.870 ng/mL (0.00-0.029) H* 02/13/21 04:40 Troponin: > 3x normal limit - Critical Actions Critical Actions: >7 pts:50-65% risk of adverse cardiac event. Early invasive measures Results - Labs CBC & Chem 7: 02/13/21 05:41 02/13/21 04:40 Labs: Laboratory Last Values WBC 5.7 K/mm3 (4.5-11.0) 02/13/21 05:41 RBC 2.94 M/mm3 (3.65-5.03) L 02/13/21 05:41 Hgb 8.5 gm/dl (11.8-15.2) L 02/13/21 05:41 Hct 25.8 % (35.5-45.6) L 02/13/21 05:41 MCV 88 fl (84-94) 02/13/21 05:41 MCH 29 pg (28-32) 02/13/21 05:41 MCHC 33 % (32-34) 02/13/21 05:41 RDW 15.8 % (13.2-15.2) H 02/13/21 05:41 Plt Count 164 K/mm3 (140-440) 02/13/21 05:41 Lymph % (Auto) 16.6 % (13.4-35.0) 02/07/21 20:42 Rich % (Auto) 12.2 % (0.0-7.3) H 02/07/21 20:42 Eos % (Auto) 1.3 % (0.0-4.3) 02/07/21 20:42 Baso % (Auto) 0.6 % (0.0-1.8) 02/07/21 20:42 Lymph # (Auto) 1.3 K/mm3 (1.2-5.4) 02/07/21 20:42 Rich # (Auto) 1.0 K/mm3 (0.0-0.8) H 02/07/21 20:42 Eos # (Auto) 0.1 K/mm3 (0.0-0.4) 02/07/21 20:42 Baso # (Auto) 0.1 K/mm3 (0.0-0.1) 02/07/21 20:42 Seg Neutrophils % 69.3 % (40.0-70.0) 02/07/21 20:42 Seg Neutrophils # 5.6 K/mm3 (1.8-7.7) 02/07/21 20:42 PT 13.4 Sec. (12.2-14.9) 02/13/21 04:40 INR 1.03 (0.87-1.13) 02/13/21 04:40 APTT 45.1 Sec. (24.2-36.6) H 02/08/21 16:07 Heparin Anti-Xa Level 0.41 U.I./ml (0.3-0.7) 02/08/21 23:01 Sodium 138 mmol/L (137-145) 02/13/21 04:40 Potassium 5.2 mmol/L (3.6-5.0) H 02/13/21 04:40 Chloride 97.0 mmol/L (98-107) L 02/13/21 04:40 Carbon Dioxide 21 mmol/L (22-30) L 02/13/21 04:40 Anion Gap 25 mmol/L 02/13/21 04:40 BUN 71 mg/dL (9-20) H 02/13/21 04:40 Creatinine 14.0 mg/dL (0.8-1.3) H 02/13/21 04:40 Estimated GFR 4 ml/min 02/13/21 04:40 BUN/Creatinine Ratio 5 % 02/13/21 04:40 Glucose 99 mg/dL (75-100) 02/13/21 04:40 Calcium 8.4 mg/dL (8.4-10.2) 02/13/21 04:40 Total Bilirubin 0.20 mg/dL (0.1-1.2) 02/07/21 20:42 AST 25 units/L (5-40) 02/07/21 20:42 ALT 11 units/L (7-56) 02/07/21 20:42 Alkaline Phosphatase 57 units/L (35-129) 02/07/21 20:42 Troponin T 2.870 ng/mL (0.00-0.029) H* 02/13/21 04:40 Total Protein 7.2 g/dL (6.3-8.2) 02/07/21 20:42 Albumin 4.4 g/dL (3.9-5) 02/07/21 20:42 Albumin/Globulin Ratio 1.6 % 02/07/21 20:42 Triglycerides 274 mg/dL (2-149) H 02/07/21 20:42 Cholesterol 193 mg/dL (50-199) 02/07/21 20:42 LDL Cholesterol Direct 104 mg/dL (50-130) 02/07/21 20:42 HDL Cholesterol 52 mg/dL (40-59) 02/07/21 20:42 Cholesterol/HDL Ratio 3.71 % 02/07/21 20:42 Nasal Screen MRSA (PCR) Negative (Negative) 02/08/21 02:00 Hepatitis A IgM Ab Non-reactive (NonReactive) 02/10/21 10:30 Hep Bs Antigen Non-reactive (Negative) 02/10/21 10:30 Hep B Core IgM Ab Non-reactive (NonReactive) 02/10/21 10:30 Hepatitis C Antibody Non-reactive (NonReactive) 02/10/21 10:30 [place]/IV: Voiding Method Toilet Active Medications - Current Medications Current Medications: Generic Name Dose Route Start Last Admin Trade Name Freq PRN Reason Stop Dose Admin Acetaminophen 650 mg 02/08/21 01:19 Acetaminophen 325 Mg Tab PO Q4H PRN Pain, Mild (1-3) Albuterol 2.5 mg 02/08/21 01:24 Albuterol 2.5 Mg/3 Ml Nebu IH Q6HRT PRN Shortness Of Breath Albuterol/Ipratropium 1 ampul 02/08/21 08:00 02/12/21 20:17 Ipratropium/Albuterol Sulfate 3 Ml Ampul.Neb IH 1 ampul TIDRT DARNELL Administration Aspirin 325 mg 02/09/21 10:00 02/13/21 08:15 Aspirin 325 Mg Tab PO 325 mg QDAY DARNELL Administration Bisacodyl 10 mg 02/10/21 23:30 Bisacodyl 10 Mg Rect Supp IL QDAY PRN Constipation Budesonide 0.5 mg 02/08/21 08:00 02/12/21 20:17 Budesonide 0.5 Mg/2 Ml Nebu IH 0.5 mg Q12HRT DARNELL Administration Docusate Sodium 100 mg 02/10/21 23:45 02/12/21 21:35 Docusate Sodium 100 Mg Cap PO 100 mg BID DARNELL Administration Hydralazine HCl 10 mg 02/08/21 01:24 02/10/21 00:55 Hydralazine 20 Mg/1 Ml Inj IV 10 mg Q6H PRN Administration htn Sodium Chloride 100 mls @ 999 mls/hr 02/10/21 09:30 Nacl 0.9% IV LIZANDRO PRN Hypotension Isosorbide Mononitrate 60 mg 02/10/21 10:00 02/12/21 10:14 Isosorbide Mononitrate Er 60 Mg Tab PO 60 mg QDAY DARNELL Administration Lanthanum Carbonate 1,000 mg 02/08/21 07:30 02/12/21 17:03 Lanthanum Carbonate 500 Mg Tab PO 1,000 mg BIDAC DARNELL Administration Metoprolol Tartrate 100 mg 02/11/21 10:00 02/12/21 21:35 Metoprolol Tartrate 100 Mg Tab PO 100 mg BID DARNELL Administration Nifedipine 90 mg 02/10/21 10:00 02/12/21 10:14 Nifedipine Xl 90 Mg Tab PO 90 mg QDAY DARNELL Administration Nitroglycerin 0.4 mg 02/08/21 01:19 Nitroglycerin 0.4 Mg Tab Subl SL .Q5MIN PRN Chest Pain Pantoprazole Sodium 40 mg 02/08/21 07:30 02/12/21 10:16 Pantoprazole 40 Mg Tab PO 40 mg QDAC DARNELL Administration Pravastatin Sodium 80 mg 02/12/21 22:00 02/12/21 21:36 Pravastatin 80 Mg Tab PO 80 mg QHS DARNELL Administration Prazosin HCl 5 mg 02/10/21 22:00 02/12/21 21:34 Prazosin 5 Mg Cap PO 5 mg HS DARNELL Administration Sodium Bicarbonate 650 mg 02/08/21 10:00 02/12/21 21:35 Sodium Bicarbonate 650 Mg Tab PO 650 mg BID DARNELL Administration Nutrition/Malnutrition Assess - Dietary Evaluation Nutrition/Malnutrition Findings: Nutrition Notes Start: 02/08/21 13:58 Freq: Status: Active Protocol: Document 02/08/21 13:58 (Rec: 02/08/21 14:00 [id number]) Nutrition Notes Need for Assessment generated from: Education Initial or Follow up Brief Note Current Diagnosis CKD (stage V CKD),COPD, Coronary Artery Disease, Hyperlipidemia Other Pertinent Diagnosis on HD Current Diet Cardiac Subjective/Other Information Screen for Coumadin education. Pt reports being on Coumadin for 2 years and understands vitamin interaction. Pt accepted handout. Nutrition Intervention Change Diet Order: Add renal Teaching Recipient Patient Learning Readiness Good Teaching Methods Handout Response to Teaching Verbalize understanding Education Handouts Provided Vitamin K and Medication Interactions Barriers to Learning No Barriers RD phone number provided Yes Patient aware of follow up options Yes Revisit per MD consult or patient Sign Off request:
[2021-02-13] MEDS ORDERED: ALUM-MAG HYDROXIDE-SIMETHICONE 200-200-20MG/5ML ORAL LIQD 30 ML ONE (08:56)
[2021-02-13] MEDS ORDERED: CLOPIDOGREL 300 MG TAB ONE (08:56)
[2021-02-13] MEDS ORDERED: HYDROcodone/ACETAMINOPHEN 5-325 MG TAB PO PRN (09:44)
--- NOTE | 2021-02-13 09:49 | Progress Note ---
Assessment and Plan lt main patent, distal 20%, lad proximal 60-70% mid stent patent diagonal 1 osital 90% rest of lad patent, lcx proximal patent om1 small patent, om2 100%, mid lcx calcified 95% mid stent patent, om3 patent, rca eccatic mid stent 30% isr and normal lv function, poba of lcx unable to deliver stent secondary to calium, transfer to [place] for rota of lcx and cont asa, plavix and hold coumadin and cont current bp and chol meds, discuss with pt , and dr jose langley accepting physcian at [place], dialysis post cath - Patient Problems (1) Acute coronary syndrome Current Visit: Yes Status: Acute (2) Acute diastolic heart failure Current Visit: Yes Status: Acute (3) Non-ST elevation [place] (NSTEMI) Current Visit: Yes Status: Acute (4) Anticoagulated on Coumadin Current Visit: Yes Status: Chronic (5) CAD (coronary artery disease) Current Visit: Yes Status: Chronic Qualifiers: Coronary Disease-Associated Artery/Lesion type: unspecified vessel or lesion type [place] vs. transplanted heart: [place] heart Associated angina: angina presence unspecified Qualified Code(s): I25.10 - Atherosclerotic heart disease of [place] coronary artery without angina pectoris (6) COPD (chronic obstructive pulmonary disease) Current Visit: Yes Status: Chronic Qualifiers: Chronic bronchitis type: unspecified (7) ESRD (end stage renal disease) on dialysis Current Visit: Yes Status: Chronic (8) HLD (hyperlipidemia) Current Visit: Yes Status: Chronic Qualifiers: Hyperlipidemia type: mixed hyperlipidemia Qualified Code(s): E78.2 - Mixed hyperlipidemia (9) HTN (hypertension) Current Visit: Yes Status: Chronic Qualifiers: Hypertension type: essential hypertension Qualified Code(s): I10 - Essential (primary) hypertension (10) Paroxysmal atrial fibrillation Current Visit: Yes Status: Chronic Subjective Date of service: 02/13/21 Principal diagnosis: NSTEMI Interval history: no cp or palpations overnight Objective Vital Signs Temp Pulse Pulse Pulse Resp Resp BP 02/13/21 09:30 98 F 73 18 146/85 02/13/21 04:18 98 F 73 18 02/13/21 00:02 98.4 F 74 18 02/12/21 22:15 76 18 02/12/21 22:08 76 02/12/21 21:35 74 124/62 02/12/21 21:34 74 121/62 02/12/21 20:20 74 20 02/12/21 19:21 98 F 74 18 02/12/21 14:50 88 18 02/12/21 10:00 80 BP Pulse Ox 02/13/21 09:30 96 02/13/21 04:18 113/50 94 02/13/21 00:02 140/68 95 02/12/21 22:15 02/12/21 22:08 02/12/21 21:35 02/12/21 21:34 02/12/21 20:20 02/12/21 19:21 124/62 94 02/12/21 14:50 02/12/21 10:00 - Physical Examination General: No Apparent Distress HEENT: Positive: PERRL, Normocephaly, Mucus Membranes Moist Neck: Positive: neck supple, trachea midline Cardiac: Positive: Reg Rate and Rhythm Lungs: Positive: clear to auscultation Neuro: Positive: Grossly Intact Abdomen: Positive: Unremarkable, Soft Skin: Negative: Rash, Wound Musculoskeletal: No Pain Extremities: Present: upper extr. pulses, lower extr. pulses. Absent: edema - Labs and Meds Coagulation 02/13/21 Range/Units 04:40 PT 13.4 (12.2-14.9) Sec. INR 1.03 (0.87-1.13) CBC 02/13/21 Range/Units 05:41 WBC 5.7 (4.5-11.0) K/mm3 RBC 2.94 L (3.65-5.03) M/mm3 Hgb 8.5 L (11.8-15.2) gm/dl Hct 25.8 L (35.5-45.6) % Plt Count 164 (140-440) K/mm3 Comprehensive Metabolic Panel 02/13/21 Range/Units 04:40 Sodium 138 (137-145) mmol/L Potassium 5.2 H (3.6-5.0) mmol/L Chloride 97.0 L (98-107) mmol/L Carbon Dioxide 21 L (22-30) mmol/L BUN 71 H (9-20) mg/dL Creatinine 14.0 H (0.8-1.3) mg/dL Glucose 99 (75-100) mg/dL Calcium 8.4 (8.4-10.2) mg/dL - Imaging and Cardiology EKG: report reviewed, image reviewed Echo: report reviewed (Echo reviewed (02/08/21): EF 50-55%. LV Grade I diastolic Dysfunction. Mild LVH) Cardiac cath: report reviewed ([facility] (2018): Left Main large and patent LAD proximal mid stents patent diagonal 1 ostial 80% mid to distal LAD patent circumflex is patent with mid stents widely ), other (lt main patent, distal 20%, lad proximal 60-70% mid stent patent diagonal 1 osital 90% rest of lad patent, lcx proximal patent om1 small patent, om2 100%, mid lcx calcified 95% mid stent patent, om3 patent, rca eccatic mid stent 30% isr and normal lv function, poba of lcx unable to deliver stent ) - Telemetry EKG Rhythm: Sinus Rhythm - EKG Sinus rhythms and dysrhythmias: sinus rhythm
--- NOTE | 2021-02-13 10:25 | Discharge Summary ---
Providers - Providers Date of Admission: 02/07/21 23:58 Attending physician: RENEE ESCOBAR MD 02/07/21 23:59 Consult to Physician [CONS] Stat Comment: Dr. Ramirez spoke with Dr. Parikh @ [phone] Consulting Provider: KEZIA WEST Physician Instructions: Reason For Exam: ACS 02/08/21 Consult to Cardiac Rehabilitation [CONS] Routine Reason For Exam: Phase 1 02/08/21 01:26 Consult to Physician [CONS] Routine Comment: Consulting Provider: ELDON SHIN Physician Instructions: Reason For Exam: esrd 02/08/21 12:53 Consult to Physician [CONS] Routine Comment: Consulting Provider: HU HUFF Physician Instructions: Reason For Exam: esrd 02/13/21 Consult to Cardiac Rehabilitation [CONS] Routine Reason For Exam: post pci Primary care physician: NAN CELESTE Hospitalization Reason for admission: Chest pain Condition: Stable Hospital course: 80-year-old male with history of CAD status post [place] x 2 and 3 cardiac stents, paroxysmal atrial fibrillation on warfarin, end-stage renal disease on hemodialysis Saturday, COPD, hyperlipidemia, anemia who presents with chest pain which is 5/10 now to since yesterday. He has a mild to moderate pulling sensation which is intermittent. No radiation. He has persistent shortness of breath which is unchanged due to COPD. Pain is similar to previous [place] however the location is slightly different. He does not have any chest pain at this time. Pain has been episodic even at rest. Patient does not take antiplatelet therapy. He takes warfarin for atrial fibrillation. Patient received 2 doses of COVID-19 vaccine. In the emergency room patient initial troponin is 1.280 Next troponin 1.160 (1) Acute coronary syndrome Current Visit: Yes Status: Acute (2) Acute diastolic heart failure Current Visit: Yes Status: Acute (3) Non-ST elevation [place] (NSTEMI) Current Visit: Yes Status: Acute (4) Anticoagulated on Coumadin Current Visit: Yes Status: Chronic (5) CAD (coronary artery disease) Current Visit: Yes Status: Chronic Qualifiers: Coronary Disease-Associated Artery/Lesion type: unspecified vessel or lesion type [place] vs. transplanted heart: [place] heart Associated angina: angina presence unspecified Qualified Code(s): I25.10 - Atherosclerotic heart disease of [place] coronary artery without angina pectoris (6) COPD (chronic obstructive pulmonary disease) Current Visit: Yes Status: Chronic Qualifiers: Chronic bronchitis type: unspecified (7) ESRD (end stage renal disease) on dialysis Current Visit: Yes Status: Chronic (8) HLD (hyperlipidemia) Current Visit: Yes Status: Chronic Qualifiers: Hyperlipidemia type: mixed hyperlipidemia Qualified Code(s): E78.2 - Mixed hyperlipidemia (9) HTN (hypertension) Current Visit: Yes Status: Chronic Qualifiers: Hypertension type: essential hypertension Qualified Code(s): I10 - Essential (primary) hypertension (10) Paroxysmal atrial fibrillation Current Visit: Yes Status: Chronic 02/08/2021 -Patient has elevated troponin level and chest pain. Patient has end-stage renal disease on hemodialysis. That may contribute to the increase in troponin level. We consulted cardiology for further evaluation. -Nephrology on board for dialysis. -Patient has A. fib and on Coumadin. INR is subtherapeutic. Pharmacy consult to dose. Rate controlled -Continues treatment for COPD -Discussed with Dr. West and will do cardiac cath tomorrow or the day after 02/09/21 -NSTEMI, cardiology was consulted and patient is on heparin drip -Patient was on Coumadin as an outpatient, his INR was subtherapeutic yesterday, was not given Coumadin but INR this morning is therapeutic 2.0 -Patient has end-stage renal disease and not on hemodialysis, nephrology is following. -Discussed with Dr. West yesterday and will do cath either today or tomorrow. 02/10/2021 -Non-STEMI, management is per cardiology -INR is still high 1.99, cardiology stop heparin drip, will do cardiac cath on Saturday -ESRD nephrology following for dialysis 02/11/2021 - NSTEMI; patient will have cardiac cath on Saturday. Cardiology is following -ESRD on hemodialysis -Coumadin is on hold for cardiac cath 02/12/2021 -Non-STEMI, cardiology is following, cardiac cath on Saturday -ESRD on hemodialysis -Coumadin was hold and INR this morning was 1.42 02/13/21: Patient for cardiac catherization this am. HD following procedure. Per departmental secretary patient will be transferred to [place] see documentation as noted below lt main patent, distal 20%, lad proximal 60-70% mid stent patent diagonal 1 osital 90% rest of lad patent, lcx proximal patent om1 small patent, om2 100%, mid lcx calcified 95% mid stent patent, om3 patent, rca eccatic mid stent 30% isr and normal lv function, poba of lcx unable to deliver stent secondary to calium, transfer to [place] for rota of lcx and cont asa, plavix and hold coumadin and cont current bp and chol meds, discuss with pt , and dr jose langley accepting physcian at [facility], dialysis post cath Disposition: [id number]/[id number] ANOTHER TYPE [facility] Final Discharge Diagnosis (Prints w/discharge instructions): Acute coronary syndrome Time spent for discharge: 35 mins Core Measure Documentation - Palliative Care Palliative Care/ Comfort Measures: Not Applicable - Core Measures Any of the following diagnoses?: acute LA - Acute LA Discharge Requirements Aspirin at discharge: Yes SHAUNA/ARB for LVSD if EF <40%: No Reason for no SHAUNA/ARB: Renal impairment Beta leanna at discharge: Yes Statin for LDL = or >100 mg/dl on DC: Yes Exam - Physical Exam Narrative exam: The patient is obese. Vital signs as documented. Head exam is unremarkable. No scleral icterus . Neck is without jugular venous distension, thyromegaly, or carotid bruits. Lungs are clear to auscultation. Cardiac exam reveals regular rate and Rhythm. Abdominal exam reveals normal bowel sounds, nontender, no organomegaly. Extremities are nonedematous and both femoral and pedal pulses are normal. CUTTER ALUMINUM SHEET: Alert and oriented 3. No focal weakness. - Constitutional Vitals: Temp Pulse Resp BP Pulse Ox 98 F 68 16 147/70 93 02/13/21 10:15 02/13/21 10:15 02/13/21 10:15 02/13/21 10:15 02/13/21 10:15 Plan Activity: advance as tolerated, fall precautions Diet: low fat Special Instructions: record daily weights, record daily BP diary Follow up with: NAN CELESTE [Primary Care Provider] - 3-5 Days Forms: Warfarin Discharge Instruction
--- NOTE | 2021-02-13 10:44 | Event Note ---
Date: 02/13/21 Patient off the floor for cath Plan for dialysis today post procedure Leah Novoa MD
--- NOTE | 2021-02-13 10:48 | Progress Note ---
Assessment and Plan Assessment and plan: 80-year-old male with history of CAD status post [place] x 2 and 3 cardiac stents, paroxysmal atrial fibrillation on warfarin, end-stage renal disease on hemodialysis Saturday, COPD, hyperlipidemia, anemia who presents with chest pain which is 5/10 now to since yesterday. He has a mild to moderate pulling sensation which is intermittent. No radiation. He has persistent shortness of breath which is unchanged due to COPD. Pain is similar to previous [place] however the location is slightly different. He does not have any chest pain at this time. Pain has been episodic even at rest. Patient does not take antiplatelet therapy. He takes warfarin for atrial fibrillation. Patient received 2 doses of COVID-19 vaccine. In the emergency room patient initial troponin is 1.280 Next troponin 1.160 (1) Acute coronary syndrome Current Visit: Yes Status: Acute (2) Acute diastolic heart failure Current Visit: Yes Status: Acute (3) Non-ST elevation [place] (NSTEMI) Current Visit: Yes Status: Acute (4) Anticoagulated on Coumadin Current Visit: Yes Status: Chronic (5) CAD (coronary artery disease) Current Visit: Yes Status: Chronic Qualifiers: Coronary Disease-Associated Artery/Lesion type: unspecified vessel or lesion type [place] vs. transplanted heart: [place] heart Associated angina: angina presence unspecified Qualified Code(s): I25.10 - Atherosclerotic heart disease of [place] coronary artery without angina pectoris (6) COPD (chronic obstructive pulmonary disease) Current Visit: Yes Status: Chronic Qualifiers: Chronic bronchitis type: unspecified (7) ESRD (end stage renal disease) on dialysis Current Visit: Yes Status: Chronic (8) HLD (hyperlipidemia) Current Visit: Yes Status: Chronic Qualifiers: Hyperlipidemia type: mixed hyperlipidemia Qualified Code(s): E78.2 - Mixed hyperlipidemia (9) HTN (hypertension) Current Visit: Yes Status: Chronic Qualifiers: Hypertension type: essential hypertension Qualified Code(s): I10 - Essential (primary) hypertension (10) Paroxysmal atrial fibrillation Current Visit: Yes Status: Chronic 02/08/2021 -Patient has elevated troponin level and chest pain. Patient has end-stage renal disease on hemodialysis. That may contribute to the increase in troponin level. We consulted cardiology for further evaluation. -Nephrology on board for dialysis. -Patient has A. fib and on Coumadin. INR is subtherapeutic. Pharmacy consult to dose. Rate controlled -Continues treatment for COPD -Discussed with Dr. West and will do cardiac cath tomorrow or the day after 02/09/21 -NSTEMI, cardiology was consulted and patient is on heparin drip -Patient was on Coumadin as an outpatient, his INR was subtherapeutic yesterday, was not given Coumadin but INR this morning is therapeutic 2.0 -Patient has end-stage renal disease and not on hemodialysis, nephrology is following. -Discussed with Dr. West yesterday and will do cath either today or tomorrow. 02/10/2021 -Non-STEMI, management is per cardiology -INR is still high 1.99, cardiology stop heparin drip, will do cardiac cath on Saturday -ESRD nephrology following for dialysis 02/11/2021 - NSTEMI; patient will have cardiac cath on Saturday. Cardiology is following -ESRD on hemodialysis -Coumadin is on hold for cardiac cath 02/12/2021 -Non-STEMI, cardiology is following, cardiac cath on Saturday -ESRD on hemodialysis -Coumadin was hold and INR this morning was 1.42 02/13/21: Patient for cardiac catherization this am. HD following procedure. Per transportation aide patient will be transferred to [place] in AM see documentation as noted below lt main patent, distal 20%, lad proximal 60-70% mid stent patent diagonal 1 osital 90% rest of lad patent, lcx proximal patent om1 small patent, om2 100%, mid lcx calcified 95% mid stent patent, om3 patent, rca eccatic mid stent 30% isr and normal lv function, poba of lcx unable to deliver stent secondary to calium, transfer to [place] for rota of lcx and cont asa, plavix and hold coumadin and cont current bp and chol meds, discuss with pt , and dr jose langley accepting physcian at [place], dialysis post cath History Interval history: Patient seen and examined today went for cardiac catheterization today plan is to be transferred to [place] for further evaluation and cardiac catheterization Hospitalist Physical - Physical exam Narrative exam: The patient is obese. Vital signs as documented. Head exam is unremarkable. No scleral icterus . Neck is without jugular venous distension, thyromegaly, or carotid bruits. Lungs are clear to auscultation. Cardiac exam reveals regular rate and Rhythm. Abdominal exam reveals normal bowel sounds, nontender, no organomegaly. Extremities are nonedematous and both femoral and pedal pulses are normal. POST ACUTE CARE NURSE PRACTITIONER: Alert and oriented 3. No focal weakness. - Constitutional Vitals: Temp Pulse Resp BP Pulse Ox 98 F 65 16 150/62 93 02/13/21 10:30 02/13/21 10:30 02/13/21 10:30 02/13/21 10:30 02/13/21 10:30 General appearance: Present: no acute distress HEART Score - HEART Score EKG: Non-specific Age: > 65 Risk factors: > 3 risk factors or hx of atherosclerotic disease Troponin: Troponin T 2.870 ng/mL (0.00-0.029) H* 02/13/21 04:40 Troponin: > 3x normal limit - Critical Actions Critical Actions: >7 pts:50-65% risk of adverse cardiac event. Early invasive measures Results - Labs CBC & Chem 7: 02/13/21 05:41 02/13/21 04:40 Labs: Laboratory Last Values WBC 5.7 K/mm3 (4.5-11.0) 02/13/21 05:41 RBC 2.94 M/mm3 (3.65-5.03) L 02/13/21 05:41 Hgb 8.5 gm/dl (11.8-15.2) L 02/13/21 05:41 Hct 25.8 % (35.5-45.6) L 02/13/21 05:41 MCV 88 fl (84-94) 02/13/21 05:41 MCH 29 pg (28-32) 02/13/21 05:41 MCHC 33 % (32-34) 02/13/21 05:41 RDW 15.8 % (13.2-15.2) H 02/13/21 05:41 Plt Count 164 K/mm3 (140-440) 02/13/21 05:41 Lymph % (Auto) 16.6 % (13.4-35.0) 02/07/21 20:42 [place] % (Auto) 12.2 % (0.0-7.3) H 02/07/21 20:42 Eos % (Auto) 1.3 % (0.0-4.3) 02/07/21 20:42 Baso % (Auto) 0.6 % (0.0-1.8) 02/07/21 20:42 Lymph # (Auto) 1.3 K/mm3 (1.2-5.4) 02/07/21 20:42 [place] # (Auto) 1.0 K/mm3 (0.0-0.8) H 02/07/21 20:42 Eos # (Auto) 0.1 K/mm3 (0.0-0.4) 02/07/21 20:42 Baso # (Auto) 0.1 K/mm3 (0.0-0.1) 02/07/21 20:42 Seg Neutrophils % 69.3 % (40.0-70.0) 02/07/21 20:42 Seg Neutrophils # 5.6 K/mm3 (1.8-7.7) 02/07/21 20:42 PT 13.4 Sec. (12.2-14.9) 02/13/21 04:40 INR 1.03 (0.87-1.13) 02/13/21 04:40 APTT 45.1 Sec. (24.2-36.6) H 02/08/21 16:07 Heparin Anti-Xa Level 0.41 U.I./ml (0.3-0.7) 02/08/21 23:01 Sodium 138 mmol/L (137-145) 02/13/21 04:40 Potassium 5.2 mmol/L (3.6-5.0) H 02/13/21 04:40 Chloride 97.0 mmol/L (98-107) L 02/13/21 04:40 Carbon Dioxide 21 mmol/L (22-30) L 02/13/21 04:40 Anion Gap 25 mmol/L 02/13/21 04:40 BUN 71 mg/dL (9-20) H 02/13/21 04:40 Creatinine 14.0 mg/dL (0.8-1.3) H 02/13/21 04:40 Estimated GFR 4 ml/min 02/13/21 04:40 BUN/Creatinine Ratio 5 % 02/13/21 04:40 Glucose 99 mg/dL (75-100) 02/13/21 04:40 Calcium 8.4 mg/dL (8.4-10.2) 02/13/21 04:40 Total Bilirubin 0.20 mg/dL (0.1-1.2) 02/07/21 20:42 AST 25 units/L (5-40) 02/07/21 20:42 ALT 11 units/L (7-56) 02/07/21 20:42 Alkaline Phosphatase 57 units/L (35-129) 02/07/21 20:42 Troponin T 2.870 ng/mL (0.00-0.029) H* 02/13/21 04:40 Total Protein 7.2 g/dL (6.3-8.2) 02/07/21 20:42 Albumin 4.4 g/dL (3.9-5) 02/07/21 20:42 Albumin/Globulin Ratio 1.6 % 02/07/21 20:42 Triglycerides 274 mg/dL (2-149) H 02/07/21 20:42 Cholesterol 193 mg/dL (50-199) 02/07/21 20:42 LDL Cholesterol Direct 104 mg/dL (50-130) 02/07/21 20:42 HDL Cholesterol 52 mg/dL (40-59) 02/07/21 20:42 Cholesterol/HDL Ratio 3.71 % 02/07/21 20:42 Nasal Screen MRSA (PCR) Negative (Negative) 02/08/21 02:00 Hepatitis A IgM Ab Non-reactive (NonReactive) 02/10/21 10:30 Hep Bs Antigen Non-reactive (Negative) 02/10/21 10:30 Hep B Core IgM Ab Non-reactive (NonReactive) 02/10/21 10:30 Hepatitis C Antibody Non-reactive (NonReactive) 02/10/21 10:30 [place]/IV: Voiding Method Toilet Active Medications - Current Medications Current Medications: Generic Name Dose Route Start Last Admin Trade Name Freq PRN Reason Stop Dose Admin Acetaminophen 650 mg 02/08/21 01:19 Acetaminophen 325 Mg Tab PO Q4H PRN Pain, Mild (1-3) Hydrocodone Bitart/Acetaminophen 1 each 02/13/21 09:44 Hydrocodone/Acetaminophen 5-325 Mg Tab PO Q6H PRN Pain, Moderate (4-6) Albuterol 2.5 mg 02/08/21 01:24 Albuterol 2.5 Mg/3 Ml Nebu IH Q6HRT PRN Shortness Of Breath Albuterol/Ipratropium 1 ampul 02/08/21 08:00 02/12/21 20:17 Ipratropium/Albuterol Sulfate 3 Ml Ampul.Neb IH 1 ampul TIDRT DARNELL Administration Aspirin 325 mg 02/09/21 10:00 02/13/21 08:15 Aspirin 325 Mg Tab PO 325 mg QDAY DARNELL Administration Bisacodyl 10 mg 02/10/21 23:30 Bisacodyl 10 Mg Rect Supp IA QDAY PRN Constipation Budesonide 0.5 mg 02/08/21 08:00 02/12/21 20:17 Budesonide 0.5 Mg/2 Ml Nebu IH 0.5 mg Q12HRT DARNELL Administration Clopidogrel Bisulfate 75 mg 02/14/21 10:00 Clopidogrel 75 Mg Tab PO QDAY DARNELL Docusate Sodium 100 mg 02/10/21 23:45 02/12/21 21:35 Docusate Sodium 100 Mg Cap PO 100 mg BID DARNELL Administration Hydralazine HCl 10 mg 02/08/21 01:24 02/10/21 00:55 Hydralazine 20 Mg/1 Ml Inj IV 10 mg Q6H PRN Administration htn Sodium Chloride 100 mls @ 999 mls/hr 02/10/21 09:30 Nacl 0.9% IV LIZANDRO PRN Hypotension Isosorbide Mononitrate 60 mg 02/10/21 10:00 02/12/21 10:14 Isosorbide Mononitrate Er 60 Mg Tab PO 60 mg QDAY DARNELL Administration Lanthanum Carbonate 1,000 mg 02/08/21 07:30 02/12/21 17:03 Lanthanum Carbonate 500 Mg Tab PO 1,000 mg BIDAC DARNELL Administration Metoprolol Tartrate 100 mg 02/11/21 10:00 02/12/21 21:35 Metoprolol Tartrate 100 Mg Tab PO 100 mg BID DARNELL Administration Nifedipine 90 mg 02/10/21 10:00 02/12/21 10:14 Nifedipine Xl 90 Mg Tab PO 90 mg QDAY DARNELL Administration Nitroglycerin 0.4 mg 02/08/21 01:19 Nitroglycerin 0.4 Mg Tab Subl SL .Q5MIN PRN Chest Pain Pantoprazole Sodium 40 mg 02/08/21 07:30 02/12/21 10:16 Pantoprazole 40 Mg Tab PO 40 mg QDAC DARNELL Administration Pravastatin Sodium 80 mg 02/12/21 22:00 02/12/21 21:36 Pravastatin 80 Mg Tab PO 80 mg QHS DARNELL Administration Prazosin HCl 5 mg 02/10/21 22:00 02/12/21 21:34 Prazosin 5 Mg Cap PO 5 mg HS DARNELL Administration Sodium Bicarbonate 650 mg 02/08/21 10:00 02/12/21 21:35 Sodium Bicarbonate 650 Mg Tab PO 650 mg BID DARNELL Administration Nutrition/Malnutrition Assess - Dietary Evaluation Nutrition/Malnutrition Findings: Nutrition Notes Start: 02/08/21 13:58 Freq: Status: Active Protocol: Document 02/08/21 13:58 MK (Rec: 02/08/21 14:00 [id number]) Nutrition Notes Need for Assessment generated from: Education Initial or Follow up Brief Note Current Diagnosis CKD (stage V CKD),COPD, Coronary Artery Disease, Hyperlipidemia Other Pertinent Diagnosis on HD Current Diet Cardiac Subjective/Other Information Screen for Coumadin education. Pt reports being on Coumadin for 2 years and understands vitamin interaction. Pt accepted handout. Nutrition Intervention Change Diet Order: Add renal Teaching Recipient Patient Learning Readiness Good Teaching Methods Handout Response to Teaching Verbalize understanding Education Handouts Provided Vitamin K and Medication Interactions Barriers to Learning No Barriers RD phone number provided Yes Patient aware of follow up options Yes Revisit per MD consult or patient Sign Off request:
--- NOTE | 2021-02-13 12:57 | Cardiac Catherization Report ---
PROCEDURE: Left heart catheterization/percutaneous balloon angioplasty done on 02/13/2021. CLINICAL INFORMATION: This is a 80-year-old -[place] gentleman with end-stage renal disease, on hemodialysis; hypertension, hyperlipidemia, paroxysmal atrial fibrillation, presents with [id number] [place] with acute diastolic heart failure. Procedure was done with moderate sedation started at 8:11 and finished at 9:04, which is 53 minutes of moderate sedation. DESCRIPTION OF PROCEDURE: Procedure was done via the right common femoral artery, sterile technique, local anesthesia, 6-Spanish radial sheath inserted. Left system engaged with JL4 catheter, left main is large and patent. Distal is like 20%, proximal ostial is 70%, LAD stent is patent. Diagonal 1 is [id number] caliber vessel, has an ostial 90%. Rest of the LAD is [id number] caliber vessel, is patent. Circumflex proximal is a medium caliber vessel that is patent. High OM1 small patent, OM2 is 100%, and then after OM2 there is a 95% lesion. Distal circumflex stent is patent, goes in OM3 that is patent and then RCA is a large dominant vessel, ectatic vessel. Distal stent is patent with 20% in-stent restenosis. PDA, PLV are patent. LV gram done in KRZYSZTOF and JOHSNON view shows normal LV function. LVEDP at 39 mmHg, LV is 163, aortic is 163/72. No gradient across the aortic valve on pullback. 5-Spanish catheters all taken over a guidewire. 1. Percutaneous coronary intervention of the circumflex and OM2, 6-Spanish EBU 3.5 guiding catheter achieved adequate ACT. 2. 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 Then, ballooned the circumflex with a 2.0 x 12 and then tried to IVUS it but unable to pass the IVUS catheter. 3. Ballooned further with a 2.5 x 15 balloon x 2 inflations, reduced stenosis to 40% from 95%. Continued PATRICIA 3 flow. 4. Double wired it with a Run[place] wire, but unable to place a 2.75 x 18 stent secondary to calcification, removed coronary wires and balloon. PATRICIA 3 flow in the circumflex going to OM3. OM2 is 100%, but reduced stenosis of 40%. 5. A 6-Spanish guiding catheter removed over guidewire, 6-Spanish groin sheath sewn in. No hematoma, no bleeding. SUMMARY: 1. POBA of the circumflex, but unable to deliver stent secondary to calcification. The patient will be transferred to [place] for rotational atherectomy. OM1 patent. OM2 100%. OM3 patent. RCA mid ectatic vessels with in-stent restenosis 20%, PDA patent. 2. Left main distal 20%, LAD proximal 60-70%, stent patent, diagonal 1 ostial 90%. Rest of LAD patent. 3. Normal LV function. The patient will be loaded with Plavix. Discussed this with the patient and the patient's family. JOB# [id number] JAMEY/KD KAPOOR
[2021-02-13] MEDS: IPRATROPIUM/ALBUTEROL SULFATE 3 ML AMPUL.NEB IH SCH (14:36)
[2021-02-13] MEDS: BUDESONIDE 0.5 MG/2 ML NEBU IH SCH (14:36)
--- NOTE | 2021-02-13 17:38 | Electrocardiograph Report ---
[facility] Test Date: 2021-02-13 Test Time: 10:34:33 Pat Name: DAISY PABON Department: Room: A452 1 Gender: M Certified Professional Coder: BLAZE : [id number] Requested By: KEZIA CARMONA Order Number: [id number] Reading MD: Qiana Joyce Measurements Intervals [place] Rate: 70 P: 70 MI: 174 QRS: -56 QRSD: 104 T: 88 QT: 416 QTc: 448 Interpretive Statements Sinus rhythm Left axis deviation Nonspecific T abnormalities, lateral leads Compared to ECG 02/09/2021 08:05:43 Electronically Signed On 02-13-2021 17:38:25 EDT by Qiana Joyce
[2021-02-13] MEDS: DOCUSATE SODIUM 100 MG CAP PO SCH (22:03)
[2021-02-13] MEDS: METOPROLOL TARTRATE 100 MG TAB PO SCH (22:03)
[2021-02-13] MEDS: PRAVASTATIN 80 MG TAB PO SCH (22:03)
[2021-02-13] MEDS: PRAZOSIN 5 MG CAP PO SCH (22:04)
[2021-02-14] MEDS: IPRATROPIUM/ALBUTEROL SULFATE 3 ML AMPUL.NEB IH SCH ×2 (00:24→07:39)
[2021-02-14] MEDS: BUDESONIDE 0.5 MG/2 ML NEBU IH SCH ×2 (00:25→07:39)
[2021-02-14 05:32] LABS: Hematocrit 29.7 % (35.5-45.6); Hemoglobin 9.5 gm/dl (11.8-15.2); Mean Corpuscular HGB Conc 32 % (32-34); Mean Corpuscular Volume 86 fl (84-94); Red Blood Count 3.43 M/mm3 (3.65-5.03); Red Cell Distribution Width 15.6 % (13.2-15.2)
[2021-02-14 05:35] LABS: Basophils % (Auto) 0.7 % (0.0-1.8); Eosinophils % (Auto) 2.3 % (0.0-4.3); Lymphocytes # (Auto) 1.1 K/mm3 (1.2-5.4); Lymphocytes % (Auto) 11.6 % (13.4-35.0); Monocytes # (Auto) 1.2 K/mm3 (0.0-0.8); Monocytes % (Auto) 12.6 % (0.0-7.3); Platelet Count 171 K/mm3 (140-440)
[2021-02-14 05:36] LABS: Basophils # (Auto) 0.1 K/mm3 (0.0-0.1); Eosinophils # (Auto) 0.2 K/mm3 (0.0-0.4)
[2021-02-14 06:00] LABS: BUN/Creatinine Ratio TNR; Blood Urea Nitrogen TNR mg/dL (9-20)
[2021-02-14 06:01] LABS: Calcium TNR mg/dL (8.4-10.2); Hemolysis Index TNR
[2021-02-14 07:04] LABS: Calcium 8.4 mg/dL (8.4-10.2)
[2021-02-14 09:02] VITALS: BP 155/65
--- NOTE | 2021-02-14 09:20 | Discharge Summary ---
Providers - Providers Date of Admission: 02/07/21 23:58 Attending physician: RENEE ESCOBAR MD 02/07/21 23:59 Consult to Physician [CONS] Stat Comment: Dr. Ramirez spoke with Dr. Parikh @ 0141 Consulting Provider: KEZIA WEST Physician Instructions: Reason For Exam: ACS 02/08/21 Consult to Cardiac Rehabilitation [CONS] Routine Reason For Exam: Phase 1 02/08/21 01:26 Consult to Physician [CONS] Routine Comment: Consulting Provider: ELDON SHIN Physician Instructions: Reason For Exam: esrd 02/08/21 12:53 Consult to Physician [CONS] Routine Comment: Consulting Provider: HU HUFF Physician Instructions: Reason For Exam: esrd 02/13/21 Consult to Cardiac Rehabilitation [CONS] Routine Reason For Exam: post pci Primary care physician: NAN CELESTE Hospitalization Reason for admission: Chest pain Condition: Stable Hospital course: 80-year-old male with history of CAD status post CT x 2 and 3 cardiac stents, paroxysmal atrial fibrillation on warfarin, end-stage renal disease on hemodialysis Saturday, COPD, hyperlipidemia, anemia who presents with chest pain which is 5/10 now to since yesterday. He has a mild to moderate pulling sensation which is intermittent. No radiation. He has persistent shortness of breath which is unchanged due to COPD. Pain is similar to previous CT however the location is slightly different. He does not have any chest pain at this time. Pain has been episodic even at rest. Patient does not take antiplatelet therapy. He takes warfarin for atrial fibrillation. Patient received 2 doses of COVID-19 vaccine. In the emergency room patient initial troponin is 1.280 Next troponin 1.160 (1) Acute coronary syndrome Current Visit: Yes Status: Acute (2) Acute diastolic heart failure Current Visit: Yes Status: Acute (3) Non-ST elevation CT (NSTEMI) Current Visit: Yes Status: Acute (4) Anticoagulated on Coumadin Current Visit: Yes Status: Chronic (5) CAD (coronary artery disease) Current Visit: Yes Status: Chronic Qualifiers: Coronary Disease-Associated Artery/Lesion type: unspecified vessel or lesion type [place] vs. transplanted heart: [place] heart Associated angina: angina presence unspecified Qualified Code(s): I25.10 - Atherosclerotic heart disease of [place] coronary artery without angina pectoris (6) COPD (chronic obstructive pulmonary disease) Current Visit: Yes Status: Chronic Qualifiers: Chronic bronchitis type: unspecified (7) ESRD (end stage renal disease) on dialysis Current Visit: Yes Status: Chronic (8) HLD (hyperlipidemia) Current Visit: Yes Status: Chronic Qualifiers: Hyperlipidemia type: mixed hyperlipidemia Qualified Code(s): E78.2 - Mixed hyperlipidemia (9) HTN (hypertension) Current Visit: Yes Status: Chronic Qualifiers: Hypertension type: essential hypertension Qualified Code(s): I10 - Essential (primary) hypertension (10) Paroxysmal atrial fibrillation Current Visit: Yes Status: Chronic 02/08/2021 -Patient has elevated troponin level and chest pain. Patient has end-stage renal disease on hemodialysis. That may contribute to the increase in troponin level. We consulted cardiology for further evaluation. -Nephrology on board for dialysis. -Patient has A. fib and on Coumadin. INR is subtherapeutic. Pharmacy consult to dose. Rate controlled -Continues treatment for COPD -Discussed with Dr. West and will do cardiac cath tomorrow or the day after 02/09/21 -NSTEMI, cardiology was consulted and patient is on heparin drip -Patient was on Coumadin as an outpatient, his INR was subtherapeutic yesterday, was not given Coumadin but INR this morning is therapeutic 2.0 -Patient has end-stage renal disease and not on hemodialysis, nephrology is following. -Discussed with Dr. West yesterday and will do cath either today or tomorrow. 02/10/2021 -Non-STEMI, management is per cardiology -INR is still high 1.99, cardiology stop heparin drip, will do cardiac cath on Saturday -ESRD nephrology following for dialysis 02/11/2021 - NSTEMI; patient will have cardiac cath on Saturday. Cardiology is following -ESRD on hemodialysis -Coumadin is on hold for cardiac cath 02/12/2021 -Non-STEMI, cardiology is following, cardiac cath on Saturday -ESRD on hemodialysis -Coumadin was hold and INR this morning was 1.42 02/13/21: Patient for cardiac catherization this am. HD following procedure. Per investment underwriter patient will be transferred to [place] in AM see documentation as noted below lt main patent, distal 20%, lad proximal 60-70% mid stent patent diagonal 1 osital 90% rest of lad patent, lcx proximal patent om1 small patent, om2 100%, mid lcx calcified 95% mid stent patent, om3 patent, rca eccatic mid stent 30% isr and normal lv function, poba of lcx unable to deliver stent secondary to calium, transfer to [place] for rota of lcx and cont asa, plavix and hold coumadin and cont current bp and chol meds, discuss with pt , and dr jose langley accepting physcian at [place], dialysis post cath 02/14: Patient seen and examined this morning doing well in no acute distress. Reports no further chest pain at this time. I have advised him that [facility] has called and they do have a bed available while waiting for transportation to get here. We will continue with plan to transfer to [place]. Disposition: [id number]/TX-[id number] ANOTHER TYPE HLTHCARE Final Discharge Diagnosis (Prints w/discharge instructions): Acute coronary syndrome with CAD Time spent for discharge: 35-minute Core Measure Documentation - Palliative Care Palliative Care/ Comfort Measures: Not Applicable - Core Measures Any of the following diagnoses?: none Exam - Physical Exam Narrative exam: VITAL SIGNS: Reviewed. GENERAL: The patient appears normally developed, Vital signs as documented. HEAD: No signs of head trauma. EYES: Pupils are equal. Extraocular motions intact. EARS: Hearing grossly intact. MOUTH: Oropharynx is normal. NECK: No adenopathy, no JVD. CHEST: Chest with clear breath sounds bilaterally. No wheezes, rales, or rhonchi. CARDIAC: Regular rate and rhythm. S1 and S2, without murmurs, gallops, or rubs. VASCULAR: No Edema. Peripheral pulses normal and equal in all extremities. ABDOMEN: Soft, non tender and non distended. No rebound or guarding, and no masses palpated. Bowel Sounds normal. MUSCULOSKELETAL: Good range of motion of all major joints. Extremities without clubbing, cyanosis or edema. NEUROLOGIC EXAM: Alert and oriented x 3 No focal sensory or strength deficits. Speech normal. Follows commands. PSYCHIATRIC: Mood normal. SKIN: detail exam as documented in skin assessment - Constitutional Vitals: Temp Pulse Resp BP Pulse Ox 98.7 F 85 19 155/65 94 02/14/21 07:57 02/14/21 07:57 02/14/21 07:57 02/14/21 07:57 02/14/21 07:57 Plan Activity: advance as tolerated, fall precautions Diet: low fat Special Instructions: record daily weights, record daily BP diary Care Plan Goals: Follow-up plans per [place] cardiology team Follow up with: NAN CELESTE [Primary Care Provider] - 3-5 Days Forms: Warfarin Discharge Instruction
[2021-02-14] MEDS ORDERED: CLOPIDOGREL 75 MG TAB PO SCH (10:00)
--- NOTE | 2021-02-14 16:15 | Progress Note ---
Assessment and Plan Assessment and plan #ESRD: Patient is currently on maintenance hemodialysis. Status post dialysis yesterday. No indication for dialysis today. #NSTEMI, cardiology note and cath report reviewed. Plans for transfer to [place] noted. #Hypertension and volume continue to monitor goal systolic blood pressure currently less than 160 predialysis other days around 140 #Bone mineral disorder and secondary hyperparathyroidism periodically check calcium phosphorus and PTH #Diet and nutrition: Patient should be on high protein diet, 1200 cc fluid restriction We'll continue to follow and make recommendation from renal standpoint Subjective Date of service: 02/14/21 Principal diagnosis: NSTEMI Interval history: Status post catheterization yesterday, plans for transfer to [place] for ROTA of LCX Tolerated dialysis without complications yesterday Denies chest pain this morning Objective - Exam Narrative Exam: General: No acute distress Neck: Supple, no JVD Chest: Clear to auscultation bilaterally Heart: RRR, S1 and S2, no pericardial rub Abdomen: Soft, nontender, no renal bruit Extremity: No peripheral cyanosis, edema Neurological: Alert, awake, no asterixis Dermatology: No skin rash Psych: No agitation Musculoskeletal: No joint effusion - Vital Signs Vital signs: Vital Signs - 12hr 02/14/21 02/14/21 02/14/21 04:17 07:39 07:57 Temperature 100.0 F H 98.7 F Pulse Rate 81 85 Pulse Rate [ 85 Anterior Bilateral Throughout] Respiratory 20 19 Rate Respiratory 17 Rate [Anterior Bilateral Throughout] Blood Pressure 148/76 155/65 O2 Sat by Pulse 92 94 Oximetry - Lab 02/14/21 04:13 02/14/21 06:21 Most recent lab results Calcium 8.4 mg/dL (8.4-10.2) 02/14/21 06:21 Medications & Allergies - Medications Allergies/Adverse Reactions: Allergies atorvastatin calcium [From Lipitor] Allergy (Mild, Verified 02/12/21 10:43) Unknown ACHES, RASH ciprofloxacin [From Cipro] Allergy (Mild, Verified 09/23/20 12:30) Bleeding NOSE BLEED ciprofloxacin HCl [From Cipro] Allergy (Mild, Verified 09/23/20 12:30) Bleeding NOSE BLEED simvastatin Allergy (Mild, Verified 09/23/20 12:30) Unknown ACHES Home Medications: Home Medications Medication Instructions Recorded Confirmed Last Taken Type Cholecalciferol (Vitamin D3) 1,000 unit PO QDAY 11/07/19 02/11/21 09/22/20 History [Vitamin D3 2,000 UNIT CAP] ALBUTEROL NEB's [Proventil 0.083% 2.5 mg IH Q6HRT PRN #50 nebu 09/28/20 02/11/21 Unknown Rx NEBS] Albuterol Sulfate [Proair 90 mcg IH QID PRN 30 Days #1 09/28/20 02/11/21 Unknown Rx Respiclick] aer.pow.ba AtorvaSTATin 10 mg PO QHS #30 tablet 09/28/20 02/11/21 Unknown Rx Budesonide [Pulmicort Respules] 0.5 mg IH Q12HRT #30 nebu 09/28/20 02/11/21 Unknown Rx Epoetin Eric 10,000 Unit [Procrit] 10,000 unit IV LIZANDRO PRN vial 09/28/20 02/11/21 Unknown Rx Famotidine [Pepcid] 10 mg PO BID #60 tablet 09/28/20 02/11/21 Unknown Rx Ipratropium/Albuterol Sulfate 1 ampul IH TIDRT #50 ampul.neb 09/28/20 02/11/21 Unknown Rx [DUONEB *Not for PRN Use*] Lanthanum Carbonate [Fosrenol] 1,000 mg PO BIDAC #60 tab.chew 09/28/20 02/11/21 Unknown Rx Metoprolol [Lopressor TAB] 50 mg PO BID #60 tablet 09/28/20 02/11/21 Unknown Rx Prazosin 5 mg PO Q12HR #60 capsule 09/28/20 02/11/21 Unknown Rx Sodium Bicarbonate 650 mg PO BID #60 09/28/20 02/11/21 Unknown Rx Spironolactone [Aldactone] 25 mg PO QDAY #30 tablet 09/28/20 02/11/21 Unknown Rx Terazosin HCl 10 mg PO HS #30 cap 09/28/20 02/11/21 Unknown Rx Tiotropium [Spiriva] 2 puff IH DAILY 30 Days #1 cap 09/28/20 02/11/21 Unknown Rx Aspirin 325 mg PO QDAY tablet 02/13/21 Unknown Rx Clopidogrel [Plavix] 75 mg PO QDAY tablet 02/13/21 Unknown Rx Docusate Sodium [Colace CAP] 100 mg PO BID capsule 02/13/21 Unknown Rx HYDROcodone/APAP 5-325 [[place] 1 each PO Q6H PRN tablet 02/13/21 Unknown Rx 5-325 mg TAB] ISOSORBIDE MONOnitrate [Imdur ER] 60 mg PO QDAY tablet 02/13/21 Unknown Rx Metoprolol [Lopressor TAB] 100 mg PO BID tablet 02/13/21 Unknown Rx NIFEdipine XL [Procardia Xl] 90 mg PO QDAY tablet 02/13/21 Unknown Rx Nitroglycerin [Nitrostat] 0.4 mg SL .Q5MIN PRN tablet 02/13/21 Unknown Rx Pantoprazole [Protonix TAB] 40 mg PO QDAC tablet 02/13/21 Unknown Rx Pravastatin [Pravachol] 80 mg PO QHS tablet 02/13/21 Unknown Rx bisacodyL [Dulcolax suppos] 10 mg MD QDAY PRN supp.rect 02/13/21 Unknown Rx
== END 2021-02-14 10:20 | disposition short-term general hospital (02) | DRG 250 ==
LOC: ED 20:15 → 4A 23:58 → OBSVTOIN 23:58
PROVIDERS: ADMIT Hospitalist; ATTEND Internal Medicine
PROC: 4A023N7 Measurement of Cardiac Sampling and Pressure, Left Heart, Percutaneous Approach (ICD-10-PCS; principal; 2021-02-13)
PROC: 02713ZZ Dilation of Coronary Artery, Two Arteries, Percutaneous Approach (ICD-10-PCS; 2021-02-13)
DX: I24.9 Acute ischemic heart disease, unspecified (principal); I21.4 Non-ST elevation (NSTEMI) myocardial infarction; I50.31 Acute diastolic (congestive) heart failure; N18.6 End stage renal disease; J44.1 Chronic obstructive pulmonary disease with (acute) exacerbation; N17.9 Acute kidney failure, unspecified; N25.81 Secondary hyperparathyroidism of renal origin; I25.10 Atherosclerotic heart disease of native coronary artery without angina pectoris; I48.0 Paroxysmal atrial fibrillation; E78.5 Hyperlipidemia, unspecified; M19.90 Unspecified osteoarthritis, unspecified site; I27.20 Pulmonary hypertension, unspecified; D63.1 Anemia in chronic kidney disease; E83.9 Disorder of mineral metabolism, unspecified; Z95.818 Presence of other cardiac implants and grafts; Z79.899 Other long term (current) drug therapy; Z79.891 Long term (current) use of opiate analgesic; Z79.01 Long term (current) use of anticoagulants; Z88.8 Allergy status to other drugs, medicaments and biological substances; Z87.891 Personal history of nicotine dependence
CPT/HCPCS: 36415; 71046; 80048; 80053; 80061; 80074; 84484; 85014; 85018; 85025; 85027; 85049; 85347; 85520; 85610; 85730; 87641; 92920; 92978; 93005; 93306; 93458; 94640; 96365; G0378; A9270-GY; C1725; C1753; C1769; C1887; C1894; J0360; J0885; J1644; J2250; J3010; J7040; Q9967

== ENCOUNTER 2021-03-13 07:20 | Inpatient (IN) | payer OTHER, MEDICARE ==
--- NOTE | 2021-03-13 08:28 | Emergency Department Report ---
HPI - General Chief Complaint: Adult Asthma Time Seen by Provider: 03/13/21 07:29 - HPI HPI: This is a 80-year-old male who presents to the emergency department via EMS from dialysis with complaint of a sudden onset of shortness of breath that started about 30 minutes into his dialysis session. He was given a breathing treatment and placed on a nonrebreather in route with EMS and at the time of my examination says he is feeling greatly improved. There is no report of any hypoxia. He denies any fever, chest pain, cough, lower extremity swelling, d iaphoresis, back pain. The patient has a past medical history of asthma, CHF, COPD not oxygen dependent, coronary artery disease with [place], hypertension, and end-stage renal disease on hemodialysis on Saturday/Saturday/Saturday. His barrel polisher inside is Dr. Taylor. His primary care physician is through the [facility]. The patient was here in early to mid February for chest pain and coronary artery disease. He had a catheterization done and then was transferred to [place] for an atherectomy. Patient was also seen here at the end of February for GI bleeding. He had endoscopy that showed diverticulosis and hemorrhoids. ED Past Medical Hx - Past Medical History Hx Hypertension: Yes Hx Heart Attack/AMI: Yes (x2; 2010) Hx Congestive Heart Failure: Yes Hx Diabetes: No Hx Liver Disease: No Hx Renal Disease: Yes (dialysis MWF fistula L FA) Hx Arthritis: Yes Hx Seizures: No Hx Asthma: Yes Hx COPD: Yes Additional medical history: anemia - Surgical History Hx Coronary Stent: Yes Hx Pacemaker: No Hx Internal Defibrillator: No - Social History Smoking Status: Unknown if ever smoked - Medications Home Medications: Home Medications Medication Instructions Recorded Confirmed Last Taken Type ALBUTEROL NEB's [Proventil 0.083% 2.5 mg IH Q6HRT PRN #50 nebu 09/28/20 02/28/21 Unknown Rx NEBS] AtorvaSTATin 10 mg PO QHS #30 tablet 09/28/20 02/28/21 02/27/21 Rx Budesonide [Pulmicort Respules] 0.5 mg IH Q12HRT #30 nebu 09/28/20 02/28/21 02/27/21 Rx Epoetin Eric 10,000 Unit [Procrit] 10,000 unit IV LIZANDRO PRN vial 09/28/20 02/28/2121 12:39 Rx Ipratropium/Albuterol Sulfate 1 ampul IH TIDRT #50 ampul.neb 09/28/20 02/28/21 Unknown Rx [DUONEB *Not for PRN Use*] Sodium Bicarbonate 650 mg PO BID #60 09/28/20 02/28/21 02/28/21 12:37 Rx Tiotropium [Spiriva] 2 puff IH DAILY 30 Days #1 cap 09/28/20 02/28/21 02/27/21 Rx Clopidogrel [Plavix] 75 mg PO QDAY tablet 02/13/21 02/28/21 Unknown Rx HYDROcodone/APAP 5-325 [[place] 1 each PO Q6H PRN tablet 02/13/21 02/28/21 Unknown Rx 5-325 mg TAB] Nitroglycerin [Nitrostat] 0.4 mg SL .Q5MIN PRN tablet 02/13/21 02/28/21 02/27/21 Rx Aspirin [Aspirin BABY CHEW TAB] 81 mg PO QDAY tab.chew 03/03/21 Unknown Rx Cholecalciferol Vit D3 [Vitamin D3 1,000 unit PO DAILY tablet 03/03/21 Unknown Rx 1,000 UNIT TAB] Lanthanum Carbonate [Fosrenol] 1,000 mg PO BIDAC tab.chew 03/03/21 Unknown Rx Pantoprazole [Protonix TAB] 40 mg PO QDAC tablet 03/03/21 Unknown Rx Prazosin 5 mg PO Q12HR capsule 03/03/21 Unknown Rx ED Review of Systems ROS: Stated complaint: DESTINEE Other details as noted in HPI Comment: All other systems reviewed and negative Constitutional: denies: chills, fever Eyes: denies: eye pain, vision change ENT: denies: ear pain, throat pain Respiratory: shortness of breath. denies: cough Cardiovascular: denies: chest pain, palpitations Gastrointestinal: denies: abdominal pain, vomiting Genitourinary: denies: dysuria, discharge Musculoskeletal: denies: back pain, arthralgia Skin: denies: rash, lesions Neurological: denies: headache, weakness Physical Exam - Physical Exam Vital Signs: Vital Signs 03/13/21 07:23 Temperature 98.1 F Pulse Rate 100 H Respiratory 24 Rate Blood Pressure 156/84 O2 Sat by Pulse 95 Oximetry Physical Exam: GENERAL: The patient is well-developed well-nourished. HENT: Normocephalic. Atraumatic. Patient has moist mucous membranes. EYES: Extraocular motions are intact. NECK: Supple. Trachea is midline. CHEST/LUNGS: Slightly coarse breath sounds. No tachypnea or accessory muscle use. HEART/CARDIOVASCULAR: Regular. There is no tachycardia. There is no murmur. ABDOMEN: Abdomen is soft, nontender. Patient has normal bowel sounds. SKIN: Skin is warm and dry. NEURO: The patient is awake, alert, and cooperative. The patient has no focal neurologic deficits. Normal speech. MUSCULOSKELETAL: There is no tenderness or deformity. There is no limitation range of motion. ED Course Vital Signs 03/13/21 07:23 Temperature 98.1 F Pulse Rate 100 H Respiratory 24 Rate Blood Pressure 156/84 O2 Sat by Pulse 95 Oximetry - Consultations Consultation #1: 03/13/21 10:35 I spoke to the barrel polisher inside on-call for [facility] nephrology, Dr. Cool. She has asked for the patient to be admitted to the hospitalist service and they will do dialysis for this patient. ED Medical Decision Making - Lab Data Result diagrams: 03/13/21 08:51 03/13/21 08:51 Lab Results 03/13/21 03/13/21 Range/Units 08:51 08:51 WBC 10.2 (4.5-11.0) K/mm3 RBC 3.76 (3.65-5.03) M/mm3 Hgb 10.6 L (11.8-15.2) gm/dl Hct 33.4 L (35.5-45.6) % MCV 89 (84-94) fl MCH 28 (28-32) pg MCHC 32 (32-34) % RDW 15.5 H (13.2-15.2) % Plt Count 227 (140-440) K/mm3 Add Manual Diff Complete Total Counted 100 Seg Neutrophils % Welder Apprentice Combination Seg Neuts % (Manual) 97.0 H (40.0-70.0) % Lymphocytes % (Manual) 2.0 L (13.4-35.0) % Eosinophils % (Manual) 1.0 (0.0-4.3) % Nucleated RBC % Not Reportable Seg Neutrophils # Man 9.9 H (1.8-7.7) K/mm3 Band Neutrophils # 0.0 K/mm3 Lymphocytes # (Manual) 0.2 L (1.2-5.4) K/mm3 Abs React Lymphs (Man) 0.0 K/mm3 Monocytes # (Manual) 0.0 (0.0-0.8) K/mm3 Eosinophils # (Manual) 0.1 (0.0-0.4) K/mm3 Basophils # (Manual) 0.0 (0.0-0.1) K/mm3 Metamyelocytes # 0.0 K/mm3 Myelocytes # 0.0 K/mm3 Promyelocytes # 0.0 K/mm3 Blast Cells # 0.0 K/mm3 WBC Morphology Not Reportable Hypersegmented Neuts Not Reportable Hyposegmented Neuts Not Reportable Hypogranular Neuts Not Reportable Smudge Cells Not Reportable Toxic Granulation Not Reportable Toxic Vacuolation Not Reportable Dohle Bodies Not Reportable Pelger-Huet Anomaly Not Reportable Scarlet Rods Not Reportable Platelet Estimate Consistent w auto Clumped Platelets Not Reportable Plt Clumps, EDTA Not Reportable Large Platelets Not Reportable Giant Platelets Not Reportable Platelet Satelliting Not Reportable Plt Morphology Comment Not Reportable RBC Morphology Not Reportable Dimorphic RBCs Not Reportable Polychromasia Not Reportable Hypochromasia Not Reportable Poikilocytosis Not Reportable Anisocytosis Not Reportable Microcytosis Not Reportable Macrocytosis Not Reportable Spherocytes Not Reportable Pappenheimer Bodies Not Reportable Sickle Cells Not Reportable Target Cells Not Reportable Tear Drop Cells Not Reportable Ovalocytes Not Reportable Helmet Cells Not Reportable [place] Bodies Not Reportable [place] Rings Not Reportable [place] Cells Not Reportable Bite Cells Not Reportable Crenated Cell Not Reportable Elliptocytes Not Reportable Acanthocytes (Spur) Not Reportable Rouleaux Not Reportable Hemoglobin C Crystals Not Reportable Schistocytes Rare Malaria parasites Not Reportable Jose E Bodies Not Reportable Hem Pathologist Commnt No Sodium 136 L (137-145) mmol/L Potassium 4.4 (3.6-5.0) mmol/L Chloride 96.1 L (98-107) mmol/L Carbon Dioxide 21 L (22-30) mmol/L Anion Gap 23 mmol/L BUN 40 H (9-20) mg/dL Creatinine 9.0 H (0.8-1.3) mg/dL Estimated GFR 7 ml/min BUN/Creatinine Ratio 4 % Glucose 96 (75-100) mg/dL Calcium 9.1 (8.4-10.2) mg/dL Total Bilirubin 0.50 (0.1-1.2) mg/dL AST 16 (5-40) units/L ALT 10 (7-56) units/L Alkaline Phosphatase 51 (35-129) units/L Total Protein 7.2 (6.3-8.2) g/dL Albumin 3.0 L (3.9-5) g/dL Albumin/Globulin Ratio 0.7 % - EKG Data -: EKG Interpreted by Me EKG shows normal: sinus rhythm (PVCs), axis (Left axis deviation), intervals, QRS complexes, ST-T waves (Nonspecific ST-T waves) Rate: normal - EKG Data When compared to previous EKG there are: no significant change Interpretation: unchanged when compared t (02/27/2021) - Radiology Data Radiology results: image reviewed interpreted by me: Chest x-ray does not show any acute process. There are no pleural effusions, obvious pneumonia and there is no pneumothorax. - Medical Decision Making This patient presents to the emergency department after he began having shortness of breath after completing only 30 minutes of his dialysis session this morning. Upon presentation he does not appear in any respiratory or acute distress. Slightly coarse breath sounds but no tachypnea or accessory muscle use. The patient was taken off of the supplemental oxygen and did not have any return of his shortness of breath or any increased work of breathing. Chest x-ray does not show any pneumonia, pleural effusions, pneumothorax, or any other acute process. EKG does not have any morphology consistent with ST elevation myocardial infarction. The patient's labs were mostly unremarkable except for the renal insufficiency consistent with his end-stage renal disease on hemodialysis. His nephrology service was contacted and requested that the patient be admitted to the hospitalist service so they can provide dialysis for this patient today. Patient was accepted for admission by the hospitalist service and I was given permission to place bridging orders under Dr. Mendiola. Critical Care Time: No Critical care attestation.: If time is entered above; I have spent that time in minutes in the direct care of this critically ill patient, excluding procedure time. ED Disposition Clinical Impression: ESRD needing dialysis Dyspnea Qualifiers: Dyspnea type: shortness of breath Qualified Code(s): R06.02 - Shortness of breath; R06.00 - Dyspnea, unspecified; R06.01 - Orthopnea Hypertension Qualifiers: Hypertension type: essential hypertension Qualified Code(s): I10 - Essential (primary) hypertension Disposition: OP ADMIT IP TO THIS HOSP Is pt being admited?: Yes Time of Disposition: 10:37
--- NOTE | 2021-03-13 08:37 | XRay Report ---
CHEST 1 VIEW 03/13/2021 8:08 AM INDICATION / CLINICAL INFORMATION: SOB. COMPARISON: 02/28/2021 FINDINGS: SUPPORT DEVICES: None. HEART / MEDIASTINUM: There is prominence of the cardiac silhouette. This appears unchanged. LUNGS / PLEURA: Parenchymal opacity in the left lung base persists. No pneumothorax. ADDITIONAL FINDINGS: No significant additional findings. IMPRESSION: 1. No significant change. Signer Name: Ortega Cortez MD Signed: 03/13/2021 8:33 AM Workstation Name: [email or web address] [id number]
[2021-03-13 09:11] LABS: Hematocrit 33.4 % (35.5-45.6); Hemoglobin 10.6 gm/dl (11.8-15.2); Mean Corpuscular HGB Conc 32 % (32-34); Mean Corpuscular Volume 89 fl (84-94); Platelet Count 227 K/mm3 (140-440); Red Blood Count 3.76 M/mm3 (3.65-5.03); Red Cell Distribution Width 15.5 % (13.2-15.2)
[2021-03-13 09:40] LABS: Calcium 9.1 mg/dL (8.4-10.2)
[2021-03-13] MEDS ORDERED: SODIUM CHLORIDE 0.9% 100 ML IV PRN (11:00)
[2021-03-13 11:24] LABS: Total Cells Counted 100
[2021-03-13 11:35] LABS: Platelet Estimate Consistent w Auto; Schistocytes Rare
--- NOTE | 2021-03-13 12:28 | History and Physical Report ---
History of Present Illness Date of examination: 03/13/21 Date of admission: 03/13/21 10:38 Chief complaint: Shortness of breath History of present illness: 80-year-old male with a medical history of ESRD on Saturday/Saturday/Saturday, Asthma, COPD, CHF, CAD, HTN, Atrial fibrillation presenting with shortness of breath. His shortness of breath started while he was having HD> complaint of a sudden onset of shortness of breath that started about 30 minutes into his dialysis session. He was given a breathing treatment and placed on a nonrebreather in route with EMS. He denies any chest pain or palpitations. There is no report of any hypoxia. Patient has been admitted for hemodialysis. Nephrology consulted Discussed with patient's family, patient was recently discharged from [place] after having a work-up for GI bleed. Prior to transfer from [facility] to [place], patient was on aspirin, Plavix and Coumadin which were all held as he was having GI bleed. After discharge from [place], patient was advised to continue Plavix and Coumadin 7.5 mg daily except on Mondays and Wednesdays when he takes 10 mg. Home medications Albuterol, Symbicort, vitamin D3, Plavix 75 mg daily Coumadin 7.5 mg daily except Wednesdays [10 mg Imdur 60 mg daily Metoprolol 100 mg twice daily Nifedipine XR 90 mg daily Crestor 5 mg daily Aldactone 25 mg twice daily Terazosin 5 mg daily Tiotropium 2 puffs daily Past History Past Medical History: atrial fib, CAD, COPD, ESRD, hypertension Social history: no significant social history Medications and Allergies Allergies Allergy/AdvReac Type Severity Reaction Status Date / Time atorvastatin calcium Allergy Mild Unknown Verified 02/12/21 10:43 [From Lipitor] ciprofloxacin [From Cipro] Allergy Mild Bleeding Verified 09/23/20 12:30 ciprofloxacin HCl Allergy Mild Bleeding Verified 09/23/20 12:30 [From Cipro] simvastatin Allergy Mild Unknown Verified 09/23/20 12:30 Home Medications Medication Instructions Recorded Confirmed Last Taken Type ALBUTEROL NEB's [Proventil 0.083% 2.5 mg IH Q6HRT PRN #50 nebu 09/28/20 02/28/21 Unknown Rx NEBS] AtorvaSTATin 10 mg PO QHS #30 tablet 11/02/28/21 02/27/21 Rx Budesonide [Pulmicort Respules] 0.5 mg IH Q12HRT #30 nebu 09/28/20 02/28/21 02/27/21 Rx Epoetin Eric 10,000 Unit [Procrit] 10,000 unit IV LIZANDRO PRN vial 09/28/20 02/28/21 02/28/21 12:39 Rx Ipratropium/Albuterol Sulfate 1 ampul IH TIDRT #50 ampul.neb 09/28/20 02/28/21 Unknown Rx [DUONEB *Not for PRN Use*] Sodium Bicarbonate 650 mg PO BID #60 09/28/20 02/28/21 02/28/21 12:37 Rx Tiotropium [Spiriva] 2 puff IH DAILY 30 Days #1 cap 09/28/20 02/28/21 02/27/21 Rx Clopidogrel [Plavix] 75 mg PO QDAY tablet 02/13/21 02/28/21 Unknown Rx HYDROcodone/APAP 5-325 [[place] 1 each PO Q6H PRN tablet 02/13/21 02/28/21 Unknown Rx 5-325 mg TAB] Nitroglycerin [Nitrostat] 0.4 mg SL .Q5MIN PRN tablet 02/13/21 02/28/21 Rx Aspirin [Aspirin BABY CHEW TAB] 81 mg PO QDAY tab.chew 03/03/21 Unknown Rx Cholecalciferol Vit D3 [Vitamin D3 1,000 unit PO DAILY tablet 03/03/21 Unknown Rx 1,000 UNIT TAB] Lanthanum Carbonate [Fosrenol] 1,000 mg PO BIDAC tab.chew 03/03/21 Unknown Rx Pantoprazole [Protonix TAB] 40 mg PO QDAC tablet 03/03/21 Unknown Rx Prazosin 5 mg PO Q12HR capsule 03/03/21 Unknown Rx Active Meds: Active Medications Sodium Chloride (Nacl 0.9%) 100 mls @ 999 mls/hr IV LIZANDRO PRN PRN Reason: Hypotension Review of Systems All systems: negative (Mild dyspnea on exertion) Exam - Constitutional Vitals: Temp Pulse Resp BP Pulse Ox 98.1 F 98 H 24 134/67 94 03/13/21 07:23 03/13/21 10:01 03/13/21 10:01 03/13/21 10:01 03/13/21 10:01 Results - Labs CBC & Chem 7: 03/13/21 08:51 03/13/21 08:51 Labs: Laboratory Last Values WBC 10.2 K/mm3 (4.5-11.0) 03/13/21 08:51 RBC 3.76 M/mm3 (3.65-5.03) 03/13/21 08:51 Hgb 10.6 gm/dl (11.8-15.2) L 03/13/21 08:51 Hct 33.4 % (35.5-45.6) L 03/13/21 08:51 MCV 89 fl (84-94) 03/13/21 08:51 MCH 28 pg (28-32) 03/13/21 08:51 MCHC 32 % (32-34) 03/13/21 08:51 RDW 15.5 % (13.2-15.2) H 03/13/21 08:51 Plt Count 227 K/mm3 (140-440) 03/13/21 08:51 Add Manual Diff Complete 03/13/21 08:51 Total Counted 100 03/13/21 08:51 Seg Neutrophils % Electrician Chief 03/13/21 08:51 Seg Neuts % (Manual) 97.0 % (40.0-70.0) H 03/13/21 08:51 Lymphocytes % (Manual) 2.0 % (13.4-35.0) L 03/13/21 08:51 Eosinophils % (Manual) 1.0 % (0.0-4.3) 03/13/21 08:51 Nucleated RBC % Not Reportable 03/13/21 08:51 Seg Neutrophils # Man 9.9 K/mm3 (1.8-7.7) H 03/13/21 08:51 Band Neutrophils # 0.0 K/mm3 03/13/21 08:51 Lymphocytes # (Manual) 0.2 K/mm3 (1.2-5.4) L 03/13/21 08:51 Abs React Lymphs (Man) 0.0 K/mm3 03/13/21 08:51 Monocytes # (Manual) 0.0 K/mm3 (0.0-0.8) 03/13/21 08:51 Eosinophils # (Manual) 0.1 K/mm3 (0.0-0.4) 03/13/21 08:51 Basophils # (Manual) 0.0 K/mm3 (0.0-0.1) 03/13/21 08:51 Metamyelocytes # 0.0 K/mm3 03/13/21 08:51 Myelocytes # 0.0 K/mm3 03/13/21 08:51 Promyelocytes # 0.0 K/mm3 03/13/21 08:51 Blast Cells # 0.0 K/mm3 03/13/21 08:51 WBC Morphology Not Reportable 03/13/21 08:51 Hypersegmented Neuts Not Reportable 03/13/21 08:51 Hyposegmented Neuts Not Reportable 03/13/21 08:51 Hypogranular Neuts Not Reportable 03/13/21 08:51 Smudge Cells Not Reportable 03/13/21 08:51 Toxic Granulation Not Reportable 03/13/21 08:51 Toxic Vacuolation Not Reportable 03/13/21 08:51 Dohle Bodies Not Reportable 03/13/21 08:51 Pelger-Huet Anomaly Not Reportable 03/13/21 08:51 Scarlet Rods Not Reportable 03/13/21 08:51 Platelet Estimate Consistent w auto 03/13/21 08:51 Clumped Platelets Not Reportable 03/13/21 08:51 Plt Clumps, EDTA Not Reportable 03/13/21 08:51 Large Platelets Not Reportable 03/13/21 08:51 Giant Platelets Not Reportable 03/13/21 08:51 Platelet Satelliting Not Reportable 03/13/21 08:51 Plt Morphology Comment Not Reportable 03/13/21 08:51 RBC Morphology Not Reportable 03/13/21 08:51 Dimorphic RBCs Not Reportable 03/13/21 08:51 Polychromasia Not Reportable 03/13/21 08:51 Hypochromasia Not Reportable 03/13/21 08:51 Poikilocytosis Not Reportable 03/13/21 08:51 Anisocytosis Not Reportable 03/13/21 08:51 Microcytosis Not Reportable 03/13/21 08:51 Macrocytosis Not Reportable 03/13/21 08:51 Spherocytes Not Reportable 03/13/21 08:51 Pappenheimer Bodies Not Reportable 03/13/21 08:51 Sickle Cells Not Reportable 03/13/21 08:51 Target Cells Not Reportable 03/13/21 08:51 Tear Drop Cells Not Reportable 03/13/21 08:51 Ovalocytes Not Reportable 03/13/21 08:51 Helmet Cells Not Reportable 03/13/21 08:51 [place] Bodies Not Reportable 03/13/21 08:51 [place] Rings Not Reportable 03/13/21 08:51 [place] Cells Not Reportable 03/13/21 08:51 Bite Cells Not Reportable 03/13/21 08:51 Crenated Cell Not Reportable 03/13/21 08:51 Elliptocytes Not Reportable 03/13/21 08:51 Acanthocytes (Spur) Not Reportable 03/13/21 08:51 Rouleaux Not Reportable 03/13/21 08:51 Hemoglobin C Crystals Not Reportable 03/13/21 08:51 Schistocytes Rare 03/13/21 08:51 Malaria parasites Not Reportable 03/13/21 08:51 Jose E Bodies Not Reportable 03/13/21 08:51 Hem Pathologist Commnt No 03/13/21 08:51 Sodium 136 mmol/L (137-145) L 03/13/21 08:51 Potassium 4.4 mmol/L (3.6-5.0) 03/13/21 08:51 Chloride 96.1 mmol/L (98-107) L 03/13/21 08:51 Carbon Dioxide 21 mmol/L (22-30) L 03/13/21 08:51 Anion Gap 23 mmol/L 03/13/21 08:51 BUN 40 mg/dL (9-20) H 03/13/21 08:51 Creatinine 9.0 mg/dL (0.8-1.3) H 03/13/21 08:51 Estimated GFR 7 ml/min 03/13/21 08:51 BUN/Creatinine Ratio 4 % 03/13/21 08:51 Glucose 96 mg/dL (75-100) 03/13/21 08:51 Calcium 9.1 mg/dL (8.4-10.2) 03/13/21 08:51 Total Bilirubin 0.50 mg/dL (0.1-1.2) 03/13/21 08:51 AST 16 units/L (5-40) 03/13/21 08:51 ALT 10 units/L (7-56) 03/13/21 08:51 Alkaline Phosphatase 51 units/L (35-129) 03/13/21 08:51 Total Protein 7.2 g/dL (6.3-8.2) 03/13/21 08:51 Albumin 3.0 g/dL (3.9-5) L 03/13/21 08:51 Albumin/Globulin Ratio 0.7 % 03/13/21 08:51 Assessment and Plan Assessment and plan: #Shortness of breath Likely fluid overloaded Plan for hemodialysis per nephrology Continue to monitor #Paroxysmal atrial fibrillation Continue beta leanna Continue Coumadin Monitor INR closely #History of GI bleed Recently admitted to this hospital with acute GI bleed and subsequently discharged to [facility] for pill camera study due to active bleeding. Has a history of atrial fibrillation As per patient's family, patient was discharged from [facility] on Plavix and Coumadin. No reported bleeding since then #Coronary artery disease status post stents On aspirin and Plavix #ESRD on hemodialysis Continue hemodialysis as scheduled #Hyperlipidemia Continue statins #COPD Leukocytosis Oxygen as needed #DVT prophylaxis, SCD #Full code #Disposition-DC after hemodialysis. Discussed with patient's spouse and daughter today. Home medications ordered
[2021-03-13] MEDS ORDERED: METOPROLOL TARTRATE 5 MG/5 ML INJ IV NR (13:27)
[2021-03-13] MEDS ORDERED: NITROGLYCERIN 0.4 MG TAB SUBL SL PRN (14:32)
[2021-03-13 15:47] LABS: Hepatitis B Surface Antigen Non-Reactive (Negative); Hepatitis C Virus Antibody Non-Reactive (NonReactive)
[2021-03-13] MEDS ORDERED: ALBUTEROL 2.5 MG/3 ML NEBU IH ONE (15:47)
[2021-03-13] MEDS ORDERED: hydrALAZINE 20 MG/1 ML INJ IV PRN (15:56)
--- NOTE | 2021-03-13 16:07 | Event Note ---
Date: 03/13/21 Consulted for ESRD Patient presented from dialysis unit where his treatment was cut short after 30 minutes of dialysis due to shortness of breath Case was discussed with the ER physician. His symptoms have since resolved following presentation to the ER. EKG unremarkable and no chest pain Plan for dialysis today
[2021-03-13] MEDS: CLOPIDOGREL 75 MG TAB PO SCH (17:41)
[2021-03-13] MEDS: PRAZOSIN 1 MG CAP PO SCH ×2 (18:49→22:28)
[2021-03-13] MEDS: LANTHANUM CARBONATE 500 MG TAB PO SCH (18:49)
[2021-03-13] MEDS: BUDESONIDE 0.5 MG/2 ML NEBU IH SCH (20:49)
[2021-03-13] MEDS: IPRATROPIUM/ALBUTEROL SULFATE 3 ML AMPUL.NEB IH SCH (20:49)
[2021-03-13 20:58] LABS: INR 1.42 (0.87-1.13)
[2021-03-13] MEDS ORDERED: WARFARIN 7.5 MG TAB PO SCH (21:15)
[2021-03-13] MEDS: METOPROLOL TARTRATE 100 MG TAB PO SCH (22:27)
[2021-03-14] MEDS: IPRATROPIUM/ALBUTEROL SULFATE 3 ML AMPUL.NEB IH SCH ×3 (07:40→22:41)
[2021-03-14] MEDS: BUDESONIDE 0.5 MG/2 ML NEBU IH SCH ×2 (07:40→22:41)
[2021-03-14] MEDS ORDERED: NIFEdipine XL 60 MG TAB PO SCH (10:00)
[2021-03-14] MEDS ORDERED: TIOTROPIUM 18 MCG CAP INHALATION IH SCH (10:00)
[2021-03-14] MEDS ORDERED: SODIUM CHLORIDE 0.9% 100 ML IV PRN (10:00)
--- NOTE | 2021-03-14 10:11 | Consultation ---
History of Present Illness - Reason for Consult Consult date: 03/14/21 end stage renal disease - History of Present Illness This is a 80-year-old man with end-stage renal disease on hemodialysis MWF, hypertension, coronary artery disease, congestive heart failure who presented to his dialysis unit for routine dialysis but his treatment was cut short after 30 minutes you to onset of shortness of breath. He was then sent to the ER and he again experienced shortness of breath upon initiation of dialysis at the hospital. He was subsequently admitted for further workup. Nephrology was consulted for ESRD management. Patient denies chest pain, presyncope and syncope but did note diaphoresis. Past History Past Medical History: atrial fib, CAD, COPD, ESRD, hypertension Social history: no significant social history Medications and Allergies Allergies Allergy/AdvReac Type Severity Reaction Status Date / Time atorvastatin calcium Allergy Mild Unknown Verified 02/12/21 10:43 [From Lipitor] ciprofloxacin [From Cipro] Allergy Mild Bleeding Verified 09/23/20 12:30 ciprofloxacin HCl Allergy Mild Bleeding Verified 09/23/20 12:30 [From Cipro] simvastatin Allergy Mild Unknown Verified 09/23/20 12:30 Home Medications Medication Instructions Recorded Confirmed Last Taken Type ALBUTEROL NEB's [Proventil 0.083% 2.5 mg IH Q6HRT PRN #50 nebu 09/28/20 02/28/21 Unknown Rx NEBS] AtorvaSTATin 10 mg PO QHS #30 tablet 09/28/20 02/28/21 02/27/21 Rx Budesonide [Pulmicort Respules] 0.5 mg IH Q12HRT #30 nebu 09/28/20 02/28/21 02/27/21 Rx Epoetin Eric 10,000 Unit [Procrit] 10,000 unit IV LIZANDRO PRN vial 09/28/20 02/28/21 02/28/21 12:39 Rx Ipratropium/Albuterol Sulfate 1 ampul IH TIDRT #50 ampul.neb 09/28/20 02/28/21 U nknown Rx [DUONEB *Not for PRN Use*] Sodium Bicarbonate 650 mg PO BID #60 09/28/20 02/28/21 02/28/21 12:37 Rx Tiotropium [Spiriva] 2 puff IH DAILY 30 Days #1 cap 09/28/20 02/28/2102/27/21 R x Clopidogrel [Plavix] 75 mg PO QDAY tablet 02/13/21 02/28/21 Unknown Rx HYDROcodone/APAP 5-325 [[place] 1 each PO Q6H PRN tablet 02/13/21 02/28/21 Unknown Rx 5-325 mg TAB] Nitroglycerin [Nitrostat] 0.4 mg SL .Q5MIN PRN tablet 02/13/21 02/28/21 02/27/21 Rx Aspirin [Aspirin BABY CHEW TAB] 81 mg PO QDAY tab.chew 03/03/21 Unknown Rx Cholecalciferol Vit D3 [Vitamin D3 1,000 unit PO DAILY tablet 03/03/21 Unknown Rx 1,000 UNIT TAB] Lanthanum Carbonate [Fosrenol] 1,000 mg PO BIDAC tab.chew 03/03/21 Unknown Rx Pantoprazole [Protonix TAB] 40 mg PO QDAC tablet 03/03/21 Unknown Rx Prazosin 5 mg PO Q12HR capsule 03/03/21 Unknown Rx Active Meds: Active Medications Albuterol/Ipratropium (Ipratropium/Albuterol Sulfate 3 Ml Ampul.Neb) 1 ampul IH TIDRT [facility] Last Admin: 03/14/21 07:40 Dose: 1 ampul Documented by: Atorvastatin Calcium (Atorvastatin 10 Mg Tab) 10 mg PO QHS [facility] Last Admin: 03/13/21 22:27 Dose: 10 mg Documented by: Budesonide (Budesonide 0.5 Mg/2 Ml Nebu) 0.5 mg IH Q12HRT [facility] Last Admin: 03/14/21 07:40 Dose: 0.5 mg Documented by: Cholecalciferol (Cholecalciferol (Vit D3) 1000 Unit (25 Mcg) Tab) 1,000 unit PO DAILY [facility] Clopidogrel Bisulfate (Clopidogrel 75 Mg Tab) 75 mg PO QDAY [facility] Last Admin: 03/13/21 17:41 Dose: 75 mg Documented by: Hydralazine HCl (Hydralazine 20 Mg/1 Ml Inj) 10 mg IV Q8HR PRN PRN Reason: SBP >180 OR DBP >110 Sodium Chloride (Nacl 0.9%) 100 mls @ 999 mls/hr IV LIZANDRO PRN PRN Reason: Hypotension Isosorbide Mononitrate (Isosorbide Mononitrate Er 60 Mg Tab) 60 mg PO QDAY [facility] Last Admin: 03/14/21 06:01 Dose: 60 mg Documented by: Lanthanum Carbonate (Lanthanum Carbonate 500 Mg Tab) 1,000 mg PO BIDAC [facility] Last Admin: 03/13/21 18:49 Dose: Not Given Documented by: Metoprolol Tartrate (Metoprolol Tartrate 100 Mg Tab) 100 mg PO BID [facility] Last Admin: 03/13/21 22:27 Dose: 100 mg Documented by: Nifedipine (Nifedipine Xl 60 Mg Tab) 90 mg PO QDAY [facility] Nitroglycerin (Nitroglycerin 0.4 Mg Tab Subl) 0.4 mg SL .Q5MIN PRN PRN Reason: Chest Pain Pantoprazole Sodium (Pantoprazole 40 Mg Tab) 40 mg PO QDAC [facility] Prazosin HCl (Prazosin 1 Mg Cap) 1 mg PO Q12HR [facility] Last Admin: 03/13/21 22:28 Dose: 1 mg Documented by: Warfarin Sodium (Warfarin 7.5 Mg Tab) 7.5 mg PO TuTa [facility]; Protocol Warfarin Sodium (Warfarin 10 Mg Tab) 10 mg PO MoWe [facility] Warfarin Sodium (Warfarin 7.5 Mg Tab) 7.5 mg PO [facility] Review of Systems Constitutional: no fever, no chills Ears, nose, mouth and throat: no nasal congestion, no nasal discharge Cardiovascular: no chest pain, no syncope Respiratory: shortness of breath, no cough Gastrointestinal: no nausea, no vomiting Musculoskeletal: no muscle weakness, no muscle cramps Integumentary: no rash, no redness Neurological: no paralysis, no weakness Psychiatric: no anxiety, no paranoia Endocrine: no excessive thirst, no polydipsia Hematologic/Lymphatic: no easy bruising, no easy bleeding Allergic/Immunologic: no urticaria, no allergic rhinitis Exam - Vital Signs Vital signs: Vital Signs Temp Pulse Resp BP Pulse Ox 98.1 F 100 H 24 156/84 95 03/13/21 07:23 03/13/21 07:23 03/13/21 07:23 03/13/21 07:23 03/13/21 07:23 - Physical Exam Narrative exam: General: No acute distress HEENT: Oral mucosa moist Neck: Supple, no JVD Chest: Clear to auscultation bilaterally Heart: RRR, S1 and S2, no pericardial rub Abdomen: Soft, nontender, no renal bruit Extremity: No peripheral cyanosis, edema Neurological: Alert, awake, no asterixis Dermatology: No skin rash Psych: No agitation Musculoskeletal: No joint effusion Results - Lab Results 03/13/21 08:51 03/13/21 08:51 Most recent lab results Calcium 9.1 mg/dL (8.4-10.2) 03/13/21 08:51 Assessment and Plan Assessment - End-stage renal disease on hemodialysis - Hypertension - Anemia of ESRD - Hyperparathyroidism - Hyperphosphatemia - Paroxysmal atrial fibrillation - Recent history of GI bleed - COPD Recommendations - Recommend evaluation by cardiology to rule out cardiac etiology of dyspnea - Check labs - We will attempt dialysis again today - Continue home antihypertensives - Hold antihypertensives on hemodialysis days for systolics less than 160 - Epogen with HD - Continue phosphorus binders - ESRD diet with 1.4 g/kg per day protein - Renally dose medication for creatinine clearance less than 15 cc/min
[2021-03-14] MEDS: CHOLECALCIFEROL (VIT D3) 1000 UNIT (25 mcg) TAB PO SCH (11:15)
[2021-03-14] MEDS: NIFEdipine XL 60 MG TAB PO SCH (11:15)
[2021-03-14] MEDS: CLOPIDOGREL 75 MG TAB PO SCH (11:16)
[2021-03-14] MEDS: LANTHANUM CARBONATE 500 MG TAB PO SCH ×2 (11:16→18:18)
[2021-03-14] MEDS: PANTOPRAZOLE 40 MG TAB PO SCH (11:16)
[2021-03-14] MEDS: METOPROLOL TARTRATE 100 MG TAB PO SCH ×2 (11:16→21:15)
[2021-03-14] MEDS ORDERED: EPOETIN ALFA-EPBX 10,000 UNIT/1 ML VIAL IV PRN (11:30)
[2021-03-14 14:15] LABS: Basophils % (Auto) 0.3 % (0.0-1.8); Eosinophils # (Auto) 0.1 K/mm3 (0.0-0.4); Eosinophils % (Auto) 0.6 % (0.0-4.3); Hematocrit 30.1 % (35.5-45.6); Hemoglobin 9.9 gm/dl (11.8-15.2); Lymphocytes # (Auto) 0.6 K/mm3 (1.2-5.4); Mean Corpuscular HGB Conc 33 % (32-34); Mean Corpuscular Volume 88 fl (84-94); Monocytes # (Auto) 0.7 K/mm3 (0.0-0.8); Monocytes % (Auto) 6.5 % (0.0-7.3); Platelet Count 233 K/mm3 (140-440); Red Blood Count 3.41 M/mm3 (3.65-5.03); Red Cell Distribution Width 15.4 % (13.2-15.2)
[2021-03-14 14:33] LABS: Albumin 2.5 g/dL (3.9-5); Calcium 8.7 mg/dL (8.4-10.2)
--- NOTE | 2021-03-14 15:05 | Consultation ---
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 fib anticoagulated on Coumadin. Patient is followed by Dr West in our office. Patient presents to [facility] ER with chief complaint of shortness of breath. Shortness of breath began while patient was in dialysis. Patient received albuterol nebulized breathing treatment by EMS without relief of symptoms. Patient denies any chest pain or palpitations, no weakness, dizziness, syncope, abdominal pain, N/V/D, recent illness or known exposures. 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 Of note patient was recently seen in February 2021 with severe anemia secondary to GI bleed of unknown origin. Patient was subsequently transferred to [facility] where he underwent video capsule endoscopy which was unable to find obvious source of bleeding. Of note: On last admission patient was made DNR, will discuss with patient to ascertain treatment goals. Past History Past Medical History: atrial fib, CAD, COPD, ESRD, hypertension, other Social history: no significant social history Medications and Allergies Allergies Allergy/AdvReac Type Severity Reaction Status Date / Time atorvastatin calcium Allergy Mild Unknown Verified 02/12/21 10:43 [From Lipitor] ciprofloxacin [From Cipro] Allergy Mild Bleeding Verified 09/23/20 12:30 ciprofloxacin HCl Allergy Mild Bleeding Verified 09/23/20 12:30 [From Cipro] simvastatin Allergy Mild Unknown Verified 09/23/20 12:30 Home Medications Medication Instructions Recorded Confirmed Last Taken Type ALBUTEROL NEB's [Proventil 0.083% 2.5 mg IH Q6HRT PRN #50 nebu 09/28/20 02/28/21 Unknown Rx NEBS] AtorvaSTATin 10 mg PO QHS #30 tablet 09/28/20 02/28/21 02/27/21 Rx Budesonide [Pulmicort Respules] 0.5 mg IH Q12HRT #30 nebu 09/28/20 02/28/21 02/27/21 Rx Epoetin Eric 10,000 Unit [Procrit] 10,000 unit IV LIZANDRO PRN vial 09/28/20 02/28/21 02/28/21 12:39 Rx Ipratropium/Albuterol Sulfate 1 ampul IH TIDRT #50 ampul.neb 09/28/20 02/28/21 Unknown Rx [DUONEB *Not for PRN Use*] Sodium Bicarbonate 650 mg PO BID #60 09/28/20 02/28/21 02/28/21 12:37 Rx Tiotropium [Spiriva] 2 puff IH DAILY 30 Days #1 cap 09/28/20 02/28/21 02/27/21 Rx Clopidogrel [Plavix] 75 mg PO QDAY tablet 02/13/21 02/28/21 Unknown Rx HYDROcodone/APAP 5-325 [[place] 1 each PO Q6H PRN tablet 02/13/21 02/28/21 Unknown Rx 5-325 mg TAB] Nitroglycerin [Nitrostat] 0.4 mg SL .Q5MIN PRN tablet 02/13/21 02/28/21 02/27/21 Rx Aspirin [Aspirin BABY CHEW TAB] 81 mg PO QDAY tab.chew 03/03/21 Unknown Rx Cholecalciferol Vit D3 [Vitamin D3 1,000 unit PO DAILY tablet 03/03/21 Unknown Rx 1,000 UNIT TAB] Lanthanum Carbonate [Fosrenol] 1,000 mg PO BIDAC tab.chew 03/03/21 Unknown Rx Pantoprazole [Protonix TAB] 40 mg PO QDAC tablet 03/03/21 Unknown Rx Prazosin 5 mg PO Q12HR capsule 03/03/21 Unknown Rx Active Meds: Active Medications Albuterol/Ipratropium (Ipratropium/Albuterol Sulfate 3 Ml Ampul.Neb) 1 ampul IH TIDRT [facility] Last Admin: 03/14/21 14:57 Dose: Not Given Documented by: Atorvastatin Calcium (Atorvastatin 10 Mg Tab) 10 mg PO QHS [facility] Last Admin: 03/13/21 22:27 Dose: 10 mg Documented by: Budesonide (Budesonide 0.5 Mg/2 Ml Nebu) 0.5 mg IH Q12HRT [facility] Last Admin: 03/14/21 07:40 Dose: 0.5 mg Documented by: Cholecalciferol (Cholecalciferol (Vit D3) 1000 Unit (25 Mcg) Tab) 1,000 unit PO DAILY [facility] Last Admin: 03/14/21 11:15 Dose: 1,000 unit Documented by: Clopidogrel Bisulfate (Clopidogrel 75 Mg Tab) 75 mg PO QDAY [facility] Last Admin: 03/14/21 11:16 Dose: 75 mg Documented by: Hydralazine HCl (Hydralazine 20 Mg/1 Ml Inj) 10 mg IV Q8HR PRN PRN Reason: SBP >180 OR DBP >110 Sodium Chloride (Nacl 0.9%) 100 mls @ 999 mls/hr IV LIZANDRO PRN PRN Reason: Hypotension Isosorbide Mononitrate (Isosorbide Mononitrate Er 60 Mg Tab) 60 mg PO QDAY [facility] Last Admin: 03/14/21 11:16 Dose: 60 mg Documented by: Lanthanum Carbonate (Lanthanum Carbonate 500 Mg Tab) 1,000 mg PO BIDAC [facility] Last Admin: 03/14/21 11:16 Dose: 1,000 mg Documented by: Metoprolol Tartrate (Metoprolol Tartrate 100 Mg Tab) 100 mg PO BID [facility] Last Admin: 03/14/21 11:16 Dose: 100 mg Documented by: Nifedipine (Nifedipine Xl 60 Mg Tab) 90 mg PO QDAY [facility] Last Admin: 03/14/21 11:15 Dose: 90 mg Documented by: Nitroglycerin (Nitroglycerin 0.4 Mg Tab Subl) 0.4 mg SL .Q5MIN PRN PRN Reason: Chest Pain Pantoprazole Sodium (Pantoprazole 40 Mg Tab) 40 mg PO QDAC [facility] Last Admin: 03/14/21 11:16 Dose: 40 mg Documented by: Prazosin HCl (Prazosin 1 Mg Cap) 1 mg PO Q12HR [facility] Last Admin: 03/13/21 22:28 Dose: 1 mg Documented by: Warfarin Sodium (Warfarin 7.5 Mg Tab) 7.5 mg PO [facility]; Protocol Warfarin Sodium ([facility] 10 Mg Tab) [facility] S[facility] (Warfarin 7.5 Mg Tab) 7.5 mg PO [facility] Review of Systems Constitutional: no weight loss, no weight gain, no fever, no chills, no sweats Ears, nose, mouth and throat: no ear pain, no ear discharge, no nose pain, no nasal congestion, no nasal discharge Cardiovascular: orthopnea, shortness of breath, no chest pain, no palpitations, no rapid/irregular heart beat, no edema, no syncope, no lightheadedness Respiratory: shortness of breath, no cough, no cough with sputum, no hemoptysis, no dyspnea on exertion Gastrointestinal: no abdominal pain, no nausea, no vomiting, no diarrhea Genitourinary Male: no flank pain Musculoskeletal: no neck stiffness, no neck pain, no shooting arm pain, no arm numbness/tingling, no low back pain, no shooting leg pain Integumentary: no rash, no pruritis, no redness, no sores, no wounds Neurological: no head injury, no paralysis, no weakness, no parathesias, no num bness, no tingling, no seizures, no syncope Psychiatric: no anxiety Endocrine: no cold intolerance, no heat intolerance Physical Examination Last Vital Signs Temp 97.9 F 03/14/21 12:28 Pulse 77 03/14/21 14:51 Resp 20 03/14/21 14:51 BP 120/70 03/14/21 14:51 Pulse Ox 99 03/14/21 14:51 General appearance: no acute distress HEENT: Positive: PERRL, Normocephaly, Mucus Membranes Moist Neck: Positive: neck supple, trachea midline Cardiac: Positive: Reg Rate and Rhythm, S1/S2 Lungs: Positive: Decreased Breath Sounds Neuro: Positive: Grossly Intact Abdomen: Positive: Soft, Active Bowel Sounds Skin: Negative: Rash, Wound Musculoskeletal: No Pain Extremities: Present: upper extr. pulses, lower extr. pulses, edema Results 03/14/21 13:13 03/14/21 13:13 Cardiac Enzymes 03/14/21 Range/Units 13:13 AST 10 (5-40) units/L Coagulation 03/13/21 Range/Units 19:48 PT 17.2 H (12.2-14.9) Sec. INR 1.42 H (0.87-1.13) CBC 03/14/21 Range/Units 13:13 WBC 11.1 H (4.5-11.0) K/mm3 RBC 3.41 L (3.65-5.03) M/mm3 Hgb 9.9 L (11.8-15.2) gm/dl Hct 30.1 L (35.5-45.6) % Plt Count 233 (140-440) K/mm3 Lymph # (Auto) 0.6 L (1.2-5.4) K/mm3 [place] # (Auto) 0.7 (0.0-0.8) K/mm3 Eos # (Auto) 0.1 (0.0-0.4) K/mm3 Baso # (Auto) 0.0 (0.0-0.1) K/mm3 Comprehensive Metabolic Panel 03/14/21 Range/Units 13:13 Sodium 138 (137-145) mmol/L Potassium 4.3 (3.6-5.0) mmol/L Chloride 98.6 (98-107) mmol/L Carbon Dioxide 26 (22-30) mmol/L BUN 56 H (9-20) mg/dL Creatinine 10.3 H (0.8-1.3) mg/dL Glucose 121 H (75-100) mg/dL Calcium 8.7 (8.4-10.2) mg/dL AST 10 (5-40) units/L ALT 7 (7-56) units/L Alkaline Phosphatase 45 (35-129) units/L Total Protein 6.3 (6.3-8.2) g/dL Albumin 2.5 L (3.9-5) g/dL - Imaging and Cardiology Echo: pending EKG: report reviewed, image reviewed Assessment and Plan #A. fib on Coumadin * Titrate Coumadin to therapeutic levels. INR is currently 1.45. Continue to trend INRs #Coronary artery disease with [employer] TR[employer]IVER s/p PCI s/p atherectomy * Continue DAPT with ASA 81 mg p.o., Plavix 75 mg p.o. daily #ESRD on HD * Nephrology is following #HFpEF in setting of cardiomyopathy * Echocardiogram reviewed from February 2021 LVEF is 55-60. Of note for study noted significant pericardial effusion. Will repeat echocardiogram to assess current status/confirm resolution of pericardial effusion. * Patient has chronically elevated troponins due to volume overload, history of NSTEMI type II. We will continue to trend CE's. #DVT prophylaxis * Heparin SQ We will follow Patient was seen in conjunction with Dr Rogelio Gutierrez who agrees with this assessment and plan of care
[2021-03-14] MEDS: PRAZOSIN 1 MG CAP PO SCH ×2 (15:09→21:13)
--- NOTE | 2021-03-14 15:39 | Progress Note ---
Assessment and Plan --Acute hypoxic respiratory failure Likely fluid overloaded Plan for hemodialysis per nephrology Continue to monitor --Paroxysmal atrial fibrillation Continue beta leanna Continue Coumadin Monitor INR closely --History of GI bleed Recently admitted to this hospital with acute GI bleed and subsequently discharged to [place] for pill camera study due to active bleeding. Has a history of atrial fibrillation As per patient's family, patient was discharged from [place] on Plavix and Coumadin. No reported bleeding since then --Coronary artery disease status post stents On aspirin and Plavix --ESRD on hemodialysis Continue hemodialysis as scheduled --Hyperlipidemia Continue statins --COPD Leukocytosis Oxygen as needed --DVT prophylaxis, SCD --Full code Daily clinical course: 03/14: Plan for hemodialysis today, monitor vitals and wean off from O2 as tolerated. Order PT eval and assess for home O2 requirement before discharge. If patient is clinically stable possible discharge tomorrow morning. We will transfer out to telemetry Subjective Date of service: 03/14/21 Interval history: Patient seen and examined. Medical records and medication list reviewed. No acute event overnight noted by the RN. Patient complains of difficulty breathing even on resting. Denies any chest pain patient is tolerating diet. Getting dialysis at the bedside Patient currently on 3 to 4 L nasal cannula, H&H stable Discussed plan of care at bedside with patient. Objective - Exam Narrative Exam: GENERAL: Elderly -Citizen Of The [place] male lying on bed appeared to be in no dis comfort. HEENT: Normocephalic. Atraumatic. No conjunctival congestion or icterus. Patient has moist mucous membranes. NECK: Supple. Trachea midline. CHEST/LUNGS: Coarse breath sound auscultated bilaterally, breathing nonlabored. No wheezes crackles or rhonchi. HEART/CARDIOVASCULAR: Regular in rate and rhythm. S1 and S2 positive. ABDOMEN: Abdomen is soft, nontender. Patient has normal bowel sounds. SKIN: There is no rash. Warm and dry. NEURO: No focal motor deficit. Follows command. MUSCULOSKELETAL: No joint effusion or tenderness. EXTRIMITY: No edema, no cyanosis or clubbing. PSYCH: Cooperative. - Constitutional Vitals: Vital Signs - 12hr 03/14/21 03/14/21 03/14/21 03:41 03:51 04:00 Temperature 98.8 F Pulse Rate 85 73 76 Pulse Rate [ Anterior Bilateral Throughout] Pulse Rate [ 75 From Monitor] Respiratory 16 16 17 Rate Respiratory Rate [Anterior Bilateral Throughout] Blood Pressure 133/73 133/73 130/69 O2 Sat by Pulse 100 98 95 Oximetry 03/14/21 03/14/21 03/14/21 04:11 04:21 04:31 Temperature Pulse Rate 76 73 68 Pulse Rate [ Anterior Bilateral Throughout] Pulse Rate [ From Monitor] Respiratory 17 17 17 Rate Respiratory Rate [Anterior Bilateral Throughout] Blood Pressure 130/69 130/69 130/69 O2 Sat by Pulse 98 98 100 Oximetry 03/14/21 03/14/21 03/14/21 04:41 04:51 05:01 Temperature Pulse Rate 71 73 81 Pulse Rate [ Anterior Bilateral Throughout] Pulse Rate [ From Monitor] Respiratory 17 15 22 Rate Respiratory Rate [Anterior Bilateral Throughout] Blood Pressure 130/69 130/69 140/79 O2 Sat by Pulse 99 99 96 Oximetry 03/14/21 03/14/21 03/14/21 05:11 05:21 05:31 Temperature Pulse Rate 76 77 77 Pulse Rate [ Anterior Bilateral Throughout] Pulse Rate [ From Monitor] Respiratory 20 15 15 Rate Respiratory Rate [Anterior Bilateral Throughout] Blood Pressure 140/79 140/79 140/79 O2 Sat by Pulse 99 98 98 Oximetry 03/14/21 03/14/21 03/14/21 05:41 05:51 06:00 Temperature Pulse Rate 81 75 74 Pulse Rate [ Anterior Bilateral Throughout] Pulse Rate [ From Monitor] Respiratory 16 16 17 Rate Respiratory Rate [Anterior Bilateral Throughout] Blood Pressure 140/79 140/79 140/70 O2 Sat by Pulse 99 100 95 Oximetry 03/14/21 03/14/21 03/14/21 06:01 06:11 06:21 Temperature Pulse Rate 75 74 71 Pulse Rate [ Anterior Bilateral Throughout] Pulse Rate [ From Monitor] Respiratory 15 17 Rate Respiratory Rate [Anterior Bilateral Throughout] Blood Pressure 140/70 140/79 140/79 O2 Sat by Pulse 99 100 Oximetry 03/14/21 03/14/21 03/14/21 06:31 06:41 06:51 Temperature Pulse Rate 70 67 75 Pulse Rate [ Anterior Bilateral Throughout] Pulse Rate [ From Monitor] Respiratory 15 14 15 Rate Respiratory Rate [Anterior Bilateral Throughout] Blood Pressure 140/79 140/70 140/70 O2 Sat by Pulse 100 100 100 Oximetry 03/14/21 03/14/21 03/14/21 07:00 07:11 07:21 Temperature Pulse Rate 69 71 78 Pulse Rate [ Anterior Bilateral Throughout] Pulse Rate [ From Monitor] Respiratory 12 15 12 Rate Respiratory Rate [Anterior Bilateral Throughout] Blood Pressure 134/68 134/68 134/68 O2 Sat by Pulse 98 100 99 Oximetry 03/14/21 03/14/21 03/14/21 07:31 07:40 07:41 Temperature Pulse Rate 73 78 Pulse Rate [ 83 Anterior Bilateral Throughout] Pulse Rate [ From Monitor] Respiratory 14 15 Rate Respiratory 18 Rate [Anterior Bilateral Throughout] Blood Pressure 134/68 134/68 O2 Sat by Pulse 100 98 99 Oximetry 03/14/21 03/14/21 03/14/21 07:51 08:00 08:11 Temperature Pulse Rate 74 76 76 Pulse Rate [ Anterior Bilateral Throughout] Pulse Rate [ From Monitor] Respiratory 15 17 16 Rate Respiratory Rate [Anterior Bilateral Throughout] Blood Pressure 134/68 134/68 134/68 O2 Sat by Pulse 98 99 99 Oximetry 03/14/21 03/14/21 03/14/21 08:21 08:28 08:31 Temperature 97.6 F Pulse Rate 74 77 Pulse Rate [ Anterior Bilateral Throughout] Pulse Rate [ From Monitor] Respiratory 17 16 Rate Respiratory Rate [Anterior Bilateral Throughout] Blood Pressure 134/68 134/68 O2 Sat by Pulse 99 99 Oximetry 03/14/21 03/14/21 03/14/21 08:41 08:51 09:01 Temperature Pulse Rate 76 80 81 Pulse Rate [ Anterior Bilateral Throughout] Pulse Rate [ From Monitor] Respiratory 15 15 17 Rate Respiratory Rate [Anterior Bilateral Throughout] Blood Pressure 134/68 134/68 120/65 O2 Sat by Pulse 100 100 96 Oximetry 03/14/21 03/14/21 03/14/21 09:11 09:21 09:31 Temperature Pulse Rate 77 81 81 Pulse Rate [ Anterior Bilateral Throughout] Pulse Rate [ From Monitor] Respiratory 13 15 13 Rate Respiratory Rate [Anterior Bilateral Throughout] Blood Pressure 120/65 120/65 120/65 O2 Sat by Pulse 97 98 97 Oximetry 03/14/21 03/14/21 03/14/21 09:41 09:51 10:00 Temperature Pulse Rate 76 77 74 Pulse Rate [ Anterior Bilateral Throughout] Pulse Rate [ From Monitor] Respiratory 17 14 15 Rate Respiratory Rate [Anterior Bilateral Throughout] Blood Pressure 120/65 120/65 114/58 O2 Sat by Pulse 98 99 95 Oximetry 03/14/21 03/14/21 03/14/21 10:11 10:21 10:31 Temperature Pulse Rate 72 79 81 Pulse Rate [ Anterior Bilateral Throughout] Pulse Rate [ From Monitor] Respiratory 18 14 18 Rate Respiratory Rate [Anterior Bilateral Throughout] Blood Pressure 114/58 114/58 114/58 O2 Sat by Pulse 99 98 99 Oximetry 03/14/21 03/14/21 03/14/21 10:41 10:51 11:00 Temperature Pulse Rate 80 74 80 Pulse Rate [ Anterior Bilateral Throughout] Pulse Rate [ From Monitor] Respiratory 15 20 19 Rate Respiratory Rate [Anterior Bilateral Throughout] Blood Pressure 114/58 114/58 118/67 O2 Sat by Pulse 97 99 97 Oximetry 03/14/21 03/14/21 03/14/21 11:11 11:21 11:31 Temperature Pulse Rate 80 85 84 Pulse Rate [ Anterior Bilateral Throughout] Pulse Rate [ From Monitor] Respiratory 17 15 17 Rate Respiratory Rate [Anterior Bilateral Throughout] Blood Pressure 118/67 118/67 118/67 O2 Sat by Pulse 99 96 99 Oximetry 03/14/21 03/14/21 03/14/21 11:41 11:51 12:00 Temperature Pulse Rate 83 87 84 Pulse Rate [ Anterior Bilateral Throughout] Pulse Rate [ From Monitor] Respiratory 15 16 14 Rate Respiratory Rate [Anterior Bilateral Throughout] Blood Pressure 118/67 118/67 109/59 O2 Sat by Pulse 99 94 Oximetry 03/14/21 03/14/21 03/14/21 12:11 12:21 12:28 Temperature 97.9 F Pulse Rate 86 83 Pulse Rate [ Anterior Bilateral Throughout] Pulse Rate [ From Monitor] Respiratory 18 18 Rate Respiratory Rate [Anterior Bilateral Throughout] Blood Pressure 109/59 109/59 O2 Sat by Pulse 98 99 Oximetry 03/14/21 03/14/21 03/14/21 12:31 12:41 12:51 Temperature Pulse Rate 83 83 79 Pulse Rate [ Anterior Bilateral Throughout] Pulse Rate [ From Monitor] Respiratory 16 15 14 Rate Respiratory Rate [Anterior Bilateral Throughout] Blood Pressure 109/59 109/59 109/59 O2 Sat by Pulse 99 98 99 Oximetry 03/14/21 03/14/21 03/14/21 13:00 13:11 13:21 Temperature Pulse Rate 82 84 85 Pulse Rate [ Anterior Bilateral Throughout] Pulse Rate [ From Monitor] Respiratory 15 15 18 Rate Respiratory Rate [Anterior Bilateral Throughout] Blood Pressure 106/49 106/49 106/49 O2 Sat by Pulse 96 98 97 Oximetry 03/14/21 03/14/21 03/14/21 13:31 13:41 13:51 Temperature Pulse Rate 85 84 81 Pulse Rate [ Anterior Bilateral Throughout] Pulse Rate [ From Monitor] Respiratory 18 20 20 Rate Respiratory Rate [Anterior Bilateral Throughout] Blood Pressure 106/49 106/49 106/49 O2 Sat by Pulse 98 97 99 Oximetry 03/14/21 03/14/21 03/14/21 14:00 14:11 14:21 Temperature Pulse Rate 80 79 76 Pulse Rate [ Anterior Bilateral Throughout] Pulse Rate [ From Monitor] Respiratory 18 18 17 Rate Respiratory Rate [Anterior Bilateral Throughout] Blood Pressure 120/70 120/70 120/70 O2 Sat by Pulse 98 99 99 Oximetry 03/14/21 03/14/21 03/14/21 14:31 14:41 14:51 Temperature Pulse Rate 77 78 77 Pulse Rate [ Anterior Bilateral Throughout] Pulse Rate [ From Monitor] Respiratory 18 19 20 Rate Respiratory Rate [Anterior Bilateral Throughout] Blood Pressure 120/70 120/70 120/70 O2 Sat by Pulse 99 98 99 Oximetry 03/14/21 15:00 Temperature Pulse Rate 77 Pulse Rate [ Anterior Bilateral Throughout] Pulse Rate [ From Monitor] Respiratory 19 Rate Respiratory Rate [Anterior Bilateral Throughout] Blood Pressure 118/71 O2 Sat by Pulse 96 Oximetry - Labs CBC & Chem 7: 03/16/21 05:53 03/16/21 05:53 Labs: Abnormal lab results 03/13/21 03/14/21 03/14/21 Range/Units 19:48 13:13 13:13 WBC 11.1 H (4.5-11.0) K/mm3 RBC 3.41 L (3.65-5.03) M/mm3 Hgb 9.9 L (11.8-15.2) gm/dl Hct 30.1 L (35.5-45.6) % RDW 15.4 H (13.2-15.2) % Lymph % (Auto) 5.0 L (13.4-35.0) % Lymph # (Auto) 0.6 L (1.2-5.4) K/mm3 Seg Neutrophils % 87.6 H (40.0-70.0) % Seg Neutrophils # 9.7 H (1.8-7.7) K/mm3 PT 17.2 H (12.2-14.9) Sec. INR 1.42 H (0.87-1.13) BUN 56 H (9-20) mg/dL Creatinine 10.3 H (0.8-1.3) mg/dL Glucose 121 H (75-100) mg/dL Albumin 2.5 L (3.9-5) g/dL
[2021-03-14] MEDS ORDERED: WARFARIN 7.5 MG TAB PO SCH (17:00)
[2021-03-14 17:30] LABS: Chol/HDL Ratio 2.97 %
[2021-03-15 05:25] LABS: INR 1.63 (0.87-1.13)
[2021-03-15] MEDS: BUDESONIDE 0.5 MG/2 ML NEBU IH SCH ×2 (08:29→21:15)
[2021-03-15] MEDS: IPRATROPIUM/ALBUTEROL SULFATE 3 ML AMPUL.NEB IH SCH ×3 (08:29→21:15)
--- NOTE | 2021-03-15 09:15 | Progress Note ---
Assessment and Plan Pt CC sob during dialysis Telemetry reviewed: Sinus tach 102 with frequent PACs. Paroxysmal A. fib noted overnight #A. fib on Coumadin * Titrate Coumadin to therapeutic levels. INR is currently 1.45. Continue to trend INRs #Coronary artery disease with [employer] s/p PCI s/p atherectomy * Continue DAPT with ASA 81 mg p.o., Plavix 75 mg p.o. daily #NSTEMI type II * Troponins are elevated x2. This is consistent with previous hospitalizations. Patient has chronic elevated troponin due to supply demand mismatch. Patient is currently chest pain-free. #ESRD on HD * Patient is currently receiving scheduled dialysis. Nephrology is following #HFpEF in setting of cardiomyopathy * Echocardiogram reviewed from February 2021 LVEF is 55-60. Of note for study noted significant pericardial effusion. Will repeat echocardiogram to assess current status/confirm resolution of pericardial effusion. * Patient has chronically elevated troponins due to volume overload, history of NSTEMI type II. We will continue to trend CE's. #DVT prophylaxis * Heparin SQ Echocardiogram is pending to evaluate pericardial effusion noted on previous admission approximately 2 weeks ago. We will follow Patient should follow-up with Dr West in our [place] office on 03/27/2021 at 1 PM. #[phone] Patient was seen in conjunction with Dr Rogelio Gutierrez who agrees with this assessment and plan of care Subjective Date of service: 03/15/21 Principal diagnosis: SOB during HD Interval history: Patient resting comfortably in bed. No shortness of breath or chest pain overnight. Telemetry reviewed: Sinus tach 102 with frequent PACs. Paroxysmal A. fib noted overnight Objective Last Vital Signs Temp 98.7 F 03/15/21 08:00 Pulse 93 H 03/15/21 08:46 Resp 20 03/15/21 08:46 BP 119/65 03/15/21 08:00 Pulse Ox 92 03/15/21 09:02 - Physical Examination HEENT: Positive: PERRL, Normocephaly, Mucus Membranes Moist Neck: Positive: neck supple, trachea midline Cardiac: Positive: Reg Rate and Rhythm, S1/S2 Lungs: Positive: Normal Exam, Normal Breath Sounds Neuro: Positive: Grossly Intact Abdomen: Positive: Soft, Active Bowel Sounds Skin: Negative: Rash, Wound Musculoskeletal: No Pain Extremities: Present: upper extr. pulses, lower extr. pulses, edema - Labs and Meds Cardiac Enzymes 03/14/21 Range/Units 13:13 AST 10 (5-40) units/L Coagulation 03/15/21 Range/Units 04:57 PT 19.2 H (12.2-14.9) Sec. INR 1.63 H (0.87-1.13) Lipids 03/14/21 Range/Units Unknown Triglycerides 75 (2-149) mg/dL Cholesterol 125 (50-199) mg/dL HDL Cholesterol 42 (40-59) mg/dL Cholesterol/HDL Ratio 2.97 % CBC 03/14/21 Range/Units 13:13 WBC 11.1 H (4.5-11.0) K/mm3 RBC 3.41 L (3.65-5.03) M/mm3 Hgb 9.9 L (11.8-15.2) gm/dl Hct 30.1 L (35.5-45.6) % Plt Count 233 (140-440) K/mm3 Lymph # (Auto) 0.6 L (1.2-5.4) K/mm3 Schley # (Auto) 0.7 (0.0-0.8) K/mm3 Eos # (Auto) 0.1 (0.0-0.4) K/mm3 Baso # (Auto) 0.0 (0.0-0.1) K/mm3 Comprehensive Metabolic Panel 03/14/21 Range/Units 13:13 Sodium 138 (137-145) mmol/L Potassium 4.3 (3.6-5.0) mmol/L Chloride 98.6 (98-107) mmol/L Carbon Dioxide 26 (22-30) mmol/L BUN 56 H (9-20) mg/dL Creatinine 10.3 H (0.8-1.3) mg/dL Glucose 121 H (75-100) mg/dL Calcium 8.7 (8.4-10.2) mg/dL AST 10 (5-40) units/L ALT 7 (7-56) units/L Alkaline Phosphatase 45 (35-129) units/L Total Protein 6.3 (6.3-8.2) g/dL Albumin 2.5 L (3.9-5) g/dL - Imaging and Cardiology EKG: report reviewed, image reviewed Echo: pending - Telemetry EKG Rhythm: Sinus Tachycardia
[2021-03-15] MEDS: CHOLECALCIFEROL (VIT D3) 1000 UNIT (25 mcg) TAB PO SCH (09:56)
[2021-03-15] MEDS: PRAZOSIN 1 MG CAP PO SCH ×4 (09:56→23:00)
[2021-03-15] MEDS: LANTHANUM CARBONATE 500 MG TAB PO SCH ×2 (09:56→18:42)
[2021-03-15] MEDS: CLOPIDOGREL 75 MG TAB PO SCH (09:57)
[2021-03-15] MEDS: ASPIRIN 81 MG TAB CHEW PO SCH (09:57)
[2021-03-15] MEDS: PANTOPRAZOLE 40 MG TAB PO SCH (10:00)
[2021-03-15] MEDS: METOPROLOL TARTRATE 100 MG TAB PO SCH ×4 (12:39→23:00)
[2021-03-15] MEDS: NIFEdipine XL 60 MG TAB PO SCH (12:39)
--- NOTE | 2021-03-15 15:54 | Progress Note ---
Assessment and Plan --Acute hypoxic respiratory failure Likely fluid overloaded and underlying COPD s/p hemodialysis per nephrology Continue to monitor Patient likely will need home O2 as ambulatory O2 sat drops to 79% --Paroxysmal atrial fibrillation Continue beta leanna Continue Coumadin Monitor INR closely --History of GI bleed Recently admitted to this hospital with acute GI bleed and subsequently discharged to [place] for pill camera study due to active bleeding. Has a history of atrial fibrillation As per patient's family, patient was discharged from [place] on Plavix and Coumadin. No reported bleeding since then --Coronary artery disease status post stents On aspirin and Plavix --ESRD on hemodialysis Continue hemodialysis as scheduled --Hyperlipidemia Continue statins --COPD with exacerbation Nebulizer breathing treatment and continue supplemental oxygen as needed --DVT prophylaxis, SCD. Patient also on Coumadin --Full code Daily clinical course: 03/14: Plan for hemodialysis today, monitor vitals and wean off from O2 as tolerated. Order PT eval and assess for home O2 requirement before discharge. If patient is clinically stable possible discharge tomorrow morning. We will transfer out to telemetry 03/15: Patient remains on 3 L O2, getting 2D echocardiogram at the bedside. PT recommended home health. Continue to follow clinically. BP appears to be hypotensive today. Will hold BP medications. Continue to wean off from O2 as tolerated, most likely patient will need oxygen on discharge. manager talent consulted for home O2 arrangement. Subjective Date of service: 03/15/21 Principal diagnosis: SOB during HD Interval history: Patient seen and examined. Medical records and medication list reviewed. No acute event overnight noted by the RN. Patient complains of difficulty breathing even on resting. Denies any chest pain patient is tolerating diet. PT recommended home health O2 saturation dropped to 79% on ambulation Discussed plan of care at bedside with patient. Objective - Exam Narrative Exam: GENERAL: Elderly -[place] male lying on bed appeared to be in no discomfort. HEENT: Normocephalic. Atraumatic. No conjunctival congestion or icterus. Patient has moist mucous membranes. NECK: Supple. Trachea midline. CHEST/LUNGS: Coarse breath sound auscultated bilaterally, breathing nonlabored. No wheezes crackles or rhonchi. HEART/CARDIOVASCULAR: Regular in rate and rhythm. S1 and S2 positive. ABDOMEN: Abdomen is soft, nontender. Patient has normal bowel sounds. SKIN: There is no rash. Warm and dry. NEURO: No focal motor deficit. Follows command. MUSCULOSKELETAL: No joint effusion or tenderness. EXTRIMITY: No edema, no cyanosis or clubbing. PSYCH: Cooperative. - Constitutional Vitals: Vital Signs - 12hr 03/15/21 03/15/21 03/15/21 04:00 04:10 04:20 Temperature 98.6 F Pulse Rate 93 H 91 H 83 Pulse Rate [ Anterior Bilateral Throughout] Pulse Rate [ 89 From Monitor] Respiratory 15 20 18 Rate Respiratory Rate [Anterior Bilateral Throughout] Blood Pressure 109/65 109/65 99/44 O2 Sat by Pulse 91 93 92 Oximetry 03/15/21 03/15/21 03/15/21 04:30 04:40 04:50 Temperature Pulse Rate 88 83 87 Pulse Rate [ Anterior Bilateral Throughout] Pulse Rate [ From Monitor] Respiratory 27 H 16 18 Rate Respiratory Rate [Anterior Bilateral Throughout] Blood Pressure 99/44 99/44 103/53 O2 Sat by Pulse 91 94 92 Oximetry 03/15/21 03/15/21 03/15/21 05:00 05:10 05:20 Temperature Pulse Rate 86 89 96 H Pulse Rate [ Anterior Bilateral Throughout] Pulse Rate [ From Monitor] Respiratory 21 22 17 Rate Respiratory Rate [Anterior Bilateral Throughout] Blood Pressure 103/53 98/60 92/54 O2 Sat by Pulse 93 92 92 Oximetry 03/15/21 03/15/21 03/15/21 05:30 05:40 05:50 Temperature Pulse Rate 103 H 101 H 94 H Pulse Rate [ Anterior Bilateral Throughout] Pulse Rate [ From Monitor] Respiratory 15 28 H 27 H Rate Respiratory Rate [Anterior Bilateral Throughout] Blood Pressure 92/54 107/64 88/47 O2 Sat by Pulse 89 91 93 Oximetry 03/15/21 03/15/21 03/15/21 06:00 06:10 06:20 Temperature Pulse Rate 85 88 86 Pulse Rate [ Anterior Bilateral Throughout] Pulse Rate [ From Monitor] Respiratory 22 22 23 Rate Respiratory Rate [Anterior Bilateral Throughout] Blood Pressure 105/61 105/61 103/60 O2 Sat by Pulse 91 95 94 Oximetry 03/15/21 03/15/21 03/15/21 06:30 06:40 06:50 Temperature Pulse Rate 82 83 89 Pulse Rate [ Anterior Bilateral Throughout] Pulse Rate [ From Monitor] Respiratory 20 21 19 Rate Respiratory Rate [Anterior Bilateral Throughout] Blood Pressure 113/66 113/66 93/66 O2 Sat by Pulse 94 93 95 Oximetry 03/15/21 03/15/21 03/15/21 07:00 07:10 07:20 Temperature Pulse Rate 86 82 84 Pulse Rate [ Anterior Bilateral Throughout] Pulse Rate [ From Monitor] Respiratory 19 20 16 Rate Respiratory Rate [Anterior Bilateral Throughout] Blood Pressure 112/61 112/61 110/59 O2 Sat by Pulse 96 95 93 Oximetry 03/15/21 03/15/21 03/15/21 07:30 07:40 07:50 Temperature Pulse Rate 79 82 85 Pulse Rate [ Anterior Bilateral Throughout] Pulse Rate [ From Monitor] Respiratory 19 19 21 Rate Respiratory Rate [Anterior Bilateral Throughout] Blood Pressure 107/59 110/59 124/101 O2 Sat by Pulse 79 L 90 Oximetry 03/15/21 03/15/21 03/15/21 08:00 08:10 08:20 Temperature 98.7 F Pulse Rate 84 86 82 Pulse Rate [ Anterior Bilateral Throughout] Pulse Rate [ From Monitor] Respiratory 21 21 19 Rate Respiratory Rate [Anterior Bilateral Throughout] Blood Pressure 119/65 107/59 118/62 O2 Sat by Pulse Oximetry 03/15/21 03/15/21 03/15/21 08:30 08:40 08:46 Temperature Pulse Rate 87 85 Pulse Rate [ 93 H Anterior Bilateral Throughout] Pulse Rate [ From Monitor] Respiratory 17 14 Rate Respiratory 20 Rate [Anterior Bilateral Throughout] Blood Pressure 118/62 115/67 O2 Sat by Pulse Oximetry 03/15/21 03/15/21 03/15/21 08:50 09:00 09:02 Temperature Pulse Rate 89 92 H Pulse Rate [ Anterior Bilateral Throughout] Pulse Rate [ From Monitor] Respiratory 15 11 L Rate Respiratory Rate [Anterior Bilateral Throughout] Blood Pressure 114/47 111/48 O2 Sat by Pulse 89 92 Oximetry 03/15/21 03/15/21 03/15/21 09:10 09:20 09:30 Temperature Pulse Rate 93 H 93 H 93 H Pulse Rate [ Anterior Bilateral Throughout] Pulse Rate [ From Monitor] Respiratory 24 19 24 Rate Respiratory Rate [Anterior Bilateral Throughout] Blood Pressure 111/48 113/51 108/51 O2 Sat by Pulse 92 88 91 Oximetry 03/15/21 03/15/21 03/15/21 09:40 09:50 10:00 Temperature Pulse Rate 94 H 93 H 102 H Pulse Rate [ Anterior Bilateral Throughout] Pulse Rate [ From Monitor] Respiratory 17 21 22 Rate Respiratory Rate [Anterior Bilateral Throughout] Blood Pressure 108/51 125/64 125/64 O2 Sat by Pulse 88 88 90 Oximetry 03/15/21 03/15/21 03/15/21 10:10 10:20 10:30 Temperature Pulse Rate 102 H 97 H 99 H Pulse Rate [ Anterior Bilateral Throughout] Pulse Rate [ From Monitor] Respiratory 22 20 20 Rate Respiratory Rate [Anterior Bilateral Throughout] Blood Pressure 125/57 135/61 138/69 O2 Sat by Pulse 91 93 93 Oximetry 03/15/21 03/15/21 03/15/21 10:40 10:50 11:00 Temperature Pulse Rate 96 H 99 H 100 H Pulse Rate [ Anterior Bilateral Throughout] Pulse Rate [ From Monitor] Respiratory 23 24 22 Rate Respiratory Rate [Anterior Bilateral Throughout] Blood Pressure 138/69 119/68 119/68 O2 Sat by Pulse 93 94 Oximetry 03/15/21 03/15/21 03/15/21 11:10 11:20 11:30 Temperature Pulse Rate 91 H 88 89 Pulse Rate [ Anterior Bilateral Throughout] Pulse Rate [ From Monitor] Respiratory 20 19 18 Rate Respiratory Rate [Anterior Bilateral Throughout] Blood Pressure 133/64 121/68 129/72 O2 Sat by Pulse 96 99 92 Oximetry 03/15/21 03/15/21 03/15/21 11:40 11:50 12:00 Temperature 98.5 F Pulse Rate 86 87 82 Pulse Rate [ Anterior Bilateral Throughout] Pulse Rate [ 99 H From Monitor] Respiratory 23 22 18 Rate Respiratory Rate [Anterior Bilateral Throughout] Blood Pressure 129/72 108/46 109/66 O2 Sat by Pulse 97 99 95 Oximetry 03/15/21 03/15/21 03/15/21 12:10 12:20 12:30 Temperature Pulse Rate 86 109 H 141 H Pulse Rate [ Anterior Bilateral Throughout] Pulse Rate [ From Monitor] Respiratory 21 25 H 14 Rate Respiratory Rate [Anterior Bilateral Throughout] Blood Pressure 109/66 129/72 129/72 O2 Sat by Pulse 98 96 95 Oximetry 03/15/21 03/15/21 03/15/21 12:40 12:50 13:00 Temperature Pulse Rate 113 H 106 H 131 H Pulse Rate [ Anterior Bilateral Throughout] Pulse Rate [ From Monitor] Respiratory 20 18 18 Rate Respiratory Rate [Anterior Bilateral Throughout] Blood Pressure 101/56 120/67 120/67 O2 Sat by Pulse 96 97 95 Oximetry 03/15/21 03/15/21 03/15/21 13:10 13:20 13:30 Temperature Pulse Rate 111 H 116 H 127 H Pulse Rate [ Anterior Bilateral Throughout] Pulse Rate [ From Monitor] Respiratory 21 20 20 Rate Respiratory Rate [Anterior Bilateral Throughout] Blood Pressure 118/70 118/70 118/70 O2 Sat by Pulse 96 96 96 Oximetry 03/15/21 03/15/21 03/15/21 13:40 13:50 13:53 Temperature Pulse Rate 113 H 131 H Pulse Rate [ Anterior Bilateral Throughout] Pulse Rate [ From Monitor] Respiratory 19 19 Rate Respiratory Rate [Anterior Bilateral Throughout] Blood Pressure 101/64 101/64 O2 Sat by Pulse 95 94 95 Oximetry 03/15/21 03/15/21 03/15/21 14:00 14:08 14:10 Temperature Pulse Rate 119 H 136 H Pulse Rate [ 97 H Anterior Bilateral Throughout] Pulse Rate [ From Monitor] Respiratory 23 15 Rate Respiratory 20 Rate [Anterior Bilateral Throughout] Blood Pressure 101/64 89/54 O2 Sat by Pulse 95 94 Oximetry 03/15/21 03/15/21 03/15/21 14:20 14:30 14:40 Temperature Pulse Rate 110 H 134 H 99 H Pulse Rate [ Anterior Bilateral Throughout] Pulse Rate [ From Monitor] Respiratory 20 22 19 Rate Respiratory Rate [Anterior Bilateral Throughout] Blood Pressure 103/63 81/56 81/56 O2 Sat by Pulse 95 92 96 Oximetry 03/15/21 03/15/21 03/15/21 14:50 15:00 15:14 Temperature Pulse Rate 96 H 99 H Pulse Rate [ Anterior Bilateral Throughout] Pulse Rate [ From Monitor] Respiratory 18 19 Rate Respiratory Rate [Anterior Bilateral Throughout] Blood Pressure 91/65 92/52 O2 Sat by Pulse 91 89 95 Oximetry 03/15/21 15:48 Temperature Pulse Rate 97 H Pulse Rate [ Anterior Bilateral Throughout] Pulse Rate [ From Monitor] Respiratory Rate Respiratory Rate [Anterior Bilateral Throughout] Blood Pressure O2 Sat by Pulse Oximetry - Labs CBC & Chem 7: 03/16/21 05:53 03/16/21 05:53 Labs: Abnormal lab results 03/14/21 03/15/21 03/15/21 Range/Units Unknown 04:57 04:57 PT 19.2 H (12.2-14.9) Sec. INR 1.63 H (0.87-1.13) Troponin T 0.173 H* 0.176 H* (0.00-0.029) ng/mL HEART Score - HEART Score Troponin: Troponin T 0.176 ng/mL (0.00-0.029) H* 03/15/21 04:57
--- NOTE | 2021-03-15 16:42 | Progress Note ---
Assessment and Plan Assessment - End-stage renal disease on hemodialysis - Hypertension - Anemia of ESRD - Hyperparathyroidism - Hyperphosphatemia - Paroxysmal atrial fibrillation - Recent history of GI bleed - COPD Recommendations - Continue HD TTS - Continue home antihypertensives - Hold antihypertensives on hemodialysis days for systolics less than 160 - Epogen with HD - Continue phosphorus binders - ESRD diet with 1.4 g/kg per day protein - Renally dose medication for creatinine clearance less than 15 cc/min - Reviewed cardiology note Subjective Date of service: 03/15/21 Principal diagnosis: SOB during HD Interval history: Tolerated HD without complications yesterday. Notes nausea. Objective - Exam Narrative Exam: General: No acute distress HEENT: Oral mucosa moist Neck: Supple, no JVD Chest: Clear to auscultation bilaterally Heart: RRR, S1 and S2, no pericardial rub Abdomen: Soft, nontender, no renal bruit Extremity: No peripheral cyanosis, edema Neurological: Alert, awake, no asterixis Dermatology: No skin rash Psych: No agitation Musculoskeletal: No joint effusion - Vital Signs Vital signs: Vital Signs - 12hr 03/15/21 03/15/21 03/15/21 04:50 05:00 05:10 Temperature Pulse Rate 87 86 89 Pulse Rate [ Anterior Bilateral Throughout] Pulse Rate [ From Monitor] Respiratory 18 21 22 Rate Respiratory Rate [Anterior Bilateral Throughout] Blood Pressure 103/53 103/53 98/60 O2 Sat by Pulse 92 93 92 Oximetry 03/15/21 03/15/21 03/15/21 05:20 05:30 05:40 Temperature Pulse Rate 96 H 103 H 101 H Pulse Rate [ Anterior Bilateral Throughout] Pulse Rate [ From Monitor] Respiratory 17 15 28 H Rate Respiratory Rate [Anterior Bilateral Throughout] Blood Pressure 92/54 92/54 107/64 O2 Sat by Pulse 92 89 91 Oximetry 03/15/21 03/15/21 03/15/21 05:50 06:00 06:10 Temperature Pulse Rate 94 H 85 88 Pulse Rate [ Anterior Bilateral Throughout] Pulse Rate [ From Monitor] Respiratory 27 H 22 22 Rate Respiratory Rate [Anterior Bilateral Throughout] Blood Pressure 88/47 105/61 105/61 O2 Sat by Pulse 93 91 95 Oximetry 03/15/21 03/15/21 03/15/21 06:20 06:30 06:40 Temperature Pulse Rate 86 82 83 Pulse Rate [ Anterior Bilateral Throughout] Pulse Rate [ From Monitor] Respiratory 23 20 21 Rate Respiratory Rate [Anterior Bilateral Throughout] Blood Pressure 103/60 113/66 113/66 O2 Sat by Pulse 94 94 93 Oximetry 03/15/21 03/15/21 03/15/21 06:50 07:00 07:10 Temperature Pulse Rate 89 86 82 Pulse Rate [ Anterior Bilateral Throughout] Pulse Rate [ From Monitor] Respiratory 19 19 20 Rate Respiratory Rate [Anterior Bilateral Throughout] Blood Pressure 93/66 112/61 112/61 O2 Sat by Pulse 95 96 95 Oximetry 03/15/21 03/15/21 03/15/21 07:20 07:30 07:40 Temperature Pulse Rate 84 79 82 Pulse Rate [ Anterior Bilateral Throughout] Pulse Rate [ From Monitor] Respiratory 16 19 19 Rate Respiratory Rate [Anterior Bilateral Throughout] Blood Pressure 110/59 107/59 110/59 O2 Sat by Pulse 93 79 L 90 Oximetry 03/15/21 03/15/21 03/15/21 07:50 08:00 08:10 Temperature 98.7 F Pulse Rate 85 84 86 Pulse Rate [ Anterior Bilateral Throughout] Pulse Rate [ From Monitor] Respiratory 21 21 Rate Respiratory Rate [Anterior Bilateral Throughout] Blood Pressure 124/101 119/65 107/59 O2 Sat by Pulse Oximetry 03/15/21 03/15/21 03/15/21 08:20 08:30 08:40 Temperature Pulse Rate 82 87 85 Pulse Rate [ Anterior Bilateral Throughout] Pulse Rate [ From Monitor] Respiratory 19 17 14 Rate Respiratory Rate [Anterior Bilateral Throughout] Blood Pressure 118/62 118/62 115/67 O2 Sat by Pulse Oximetry 03/15/21 03/15/21 03/15/21 08:46 08:50 09:00 Temperature Pulse Rate 89 92 H Pulse Rate [ 93 H Anterior Bilateral Throughout] Pulse Rate [ From Monitor] Respiratory 15 11 L Rate Respiratory 20 Rate [Anterior Bilateral Throughout] Blood Pressure 114/47 111/48 O2 Sat by Pulse 89 Oximetry 03/15/21 03/15/21 03/15/21 09:02 09:10 09:20 Temperature Pulse Rate 93 H 93 H Pulse Rate [ Anterior Bilateral Throughout] Pulse Rate [ From Monitor] Respiratory 24 19 Rate Respiratory Rate [Anterior Bilateral Throughout] Blood Pressure 111/48 113/51 O2 Sat by Pulse 92 92 88 Oximetry 03/15/21 03/15/21 03/15/21 09:30 09:40 09:50 Temperature Pulse Rate 93 H 94 H 93 H Pulse Rate [ Anterior Bilateral Throughout] Pulse Rate [ From Monitor] Respiratory 24 17 21 Rate Respiratory Rate [Anterior Bilateral Throughout] Blood Pressure 108/51 108/51 125/64 O2 Sat by Pulse 91 88 88 Oximetry 03/15/21 03/15/21 03/15/21 10:00 10:10 10:20 Temperature Pulse Rate 102 H 102 H 97 H Pulse Rate [ Anterior Bilateral Throughout] Pulse Rate [ From Monitor] Respiratory 22 22 20 Rate Respiratory Rate [Anterior Bilateral Throughout] Blood Pressure 125/64 125/57 135/61 O2 Sat by Pulse 90 91 93 Oximetry 03/15/21 03/15/21 03/15/21 10:30 10:40 10:50 Temperature Pulse Rate 99 H 96 H 99 H Pulse Rate [ Anterior Bilateral Throughout] Pulse Rate [ From Monitor] Respiratory 20 23 24 Rate Respiratory Rate [Anterior Bilateral Throughout] Blood Pressure 138/69 138/69 119/68 O2 Sat by Pulse 93 93 94 Oximetry 03/15/21 03/15/21 03/15/21 11:00 11:10 11:20 Temperature Pulse Rate 100 H 91 H 88 Pulse Rate [ Anterior Bilateral Throughout] Pulse Rate [ From Monitor] Respiratory 22 20 19 Rate Respiratory Rate [Anterior Bilateral Throughout] Blood Pressure 119/68 133/64 121/68 O2 Sat by Pulse 96 99 Oximetry 03/15/21 03/15/21 03/15/21 11:30 11:40 11:50 Temperature Pulse Rate 89 86 87 Pulse Rate [ Anterior Bilateral Throughout] Pulse Rate [ From Monitor] Respiratory 18 23 22 Rate Respiratory Rate [Anterior Bilateral Throughout] Blood Pressure 129/72 129/72 108/46 O2 Sat by Pulse 92 97 99 Oximetry 03/15/21 03/15/21 03/15/21 12:00 12:10 12:20 Temperature 98.5 F Pulse Rate 82 86 109 H Pulse Rate [ Anterior Bilateral Throughout] Pulse Rate [ 99 H From Monitor] Respiratory 18 21 25 H Rate Respiratory Rate [Anterior Bilateral Throughout] Blood Pressure 109/66 109/66 129/72 O2 Sat by Pulse 95 98 96 Oximetry 03/15/21 03/15/21 03/15/21 12:30 12:40 12:50 Temperature Pulse Rate 141 H 113 H 106 H Pulse Rate [ Anterior Bilateral Throughout] Pulse Rate [ From Monitor] Respiratory 14 20 18 Rate Respiratory Rate [Anterior Bilateral Throughout] Blood Pressure 129/72 101/56 120/67 O2 Sat by Pulse 95 96 97 Oximetry 03/15/21 03/15/21 03/15/21 13:00 13:10 13:20 Temperature Pulse Rate 131 H 111 H 116 H Pulse Rate [ Anterior Bilateral Throughout] Pulse Rate [ From Monitor] Respiratory 18 21 20 Rate Respiratory Rate [Anterior Bilateral Throughout] Blood Pressure 120/67 118/70 118/70 O2 Sat by Pulse 95 96 96 Oximetry 03/15/21 03/15/21 03/15/21 13:30 13:40 13:50 Temperature Pulse Rate 127 H 113 H 131 H Pulse Rate [ Anterior Bilateral Throughout] Pulse Rate [ From Monitor] Respiratory 20 19 19 Rate Respiratory Rate [Anterior Bilateral Throughout] Blood Pressure 118/70 101/64 101/64 O2 Sat by Pulse 96 95 94 Oximetry 03/15/21 03/15/21 03/15/21 13:53 14:00 14:08 Temperature Pulse Rate 119 H Pulse Rate [ 97 H Anterior Bilateral Throughout] Pulse Rate [ From Monitor] Respiratory 23 Rate Respiratory 20 Rate [Anterior Bilateral Throughout] Blood Pressure 101/64 O2 Sat by Pulse 95 95 Oximetry 03/15/21 03/15/21 03/15/21 14:10 14:20 14:30 Temperature Pulse Rate 136 H 110 H 134 H Pulse Rate [ Anterior Bilateral Throughout] Pulse Rate [ From Monitor] Respiratory 15 20 22 Rate Respiratory Rate [Anterior Bilateral Throughout] Blood Pressure 89/54 103/63 81/56 O2 Sat by Pulse 94 95 92 Oximetry 03/15/21 03/15/21 03/15/21 14:40 14:50 15:00 Temperature Pulse Rate 99 H 96 H 99 H Pulse Rate [ Anterior Bilateral Throughout] Pulse Rate [ From Monitor] Respiratory 19 18 19 Rate Respiratory Rate [Anterior Bilateral Throughout] Blood Pressure 81/56 91/65 92/52 O2 Sat by Pulse 96 91 89 Oximetry 03/15/21 03/15/21 03/15/21 15:10 15:14 15:20 Temperature Pulse Rate 100 H 97 H Pulse Rate [ Anterior Bilateral Throughout] Pulse Rate [ From Monitor] Respiratory 22 19 Rate Respiratory Rate [Anterior Bilateral Throughout] Blood Pressure 92/52 86/61 O2 Sat by Pulse 97 95 92 Oximetry 03/15/21 03/15/21 03/15/21 15:30 15:40 15:48 Temperature Pulse Rate 97 H 96 H 97 H Pulse Rate [ Anterior Bilateral Throughout] Pulse Rate [ From Monitor] Respiratory 18 21 Rate Respiratory Rate [Anterior Bilateral Throughout] Blood Pressure 100/58 100/58 O2 Sat by Pulse 91 94 Oximetry 03/15/21 03/15/21 03/15/21 15:50 16:00 16:10 Temperature Pulse Rate 95 H 93 H 93 H Pulse Rate [ Anterior Bilateral Throughout] Pulse Rate [ From Monitor] Respiratory 18 13 13 Rate Respiratory Rate [Anterior Bilateral Throughout] Blood Pressure 98/61 86/64 86/64 O2 Sat by Pulse 94 93 Oximetry 03/15/21 03/15/21 16:20 16:30 Temperature Pulse Rate 90 88 Pulse Rate [ Anterior Bilateral Throughout] Pulse Rate [ From Monitor] Respiratory 14 15 Rate Respiratory Rate [Anterior Bilateral Throughout] Blood Pressure 82/60 99/68 O2 Sat by Pulse 95 95 Oximetry - Lab 03/14/21 13:13 03/14/21 13:13 Most recent lab results Calcium 8.7 mg/dL (8.4-10.2) 03/14/21 13:13 Medications & Allergies - Medications Allergies/Adverse Reactions: Allergies atorvastatin calcium [From Lipitor] Allergy (Mild, Verified 02/12/21 10:43) Unknown ACHES, RASH ciprofloxacin [From Cipro] Allergy (Mild, Verified 09/23/20 12:30) Bleeding NOSE BLEED ciprofloxacin HCl [From Cipro] Allergy (Mild, Verified 09/23/20 12:30) Bleeding NOSE BLEED simvastatin Allergy (Mild, Verified 09/23/20 12:30) Unknown ACHES Home Medications: Home Medications Medication Instructions Recorded Confirmed Last Taken Type ALBUTEROL NEB's [Proventil 0.083% 2.5 mg IH Q6HRT PRN #50 nebu 09/28/20 02/28/21 Unknown Rx NEBS] AtorvaSTATin 10 mg PO QHS #30 tablet 09/28/20 02/28/21 02/27/21 Rx Budesonide [Pulmicort Respules] 0.5 mg IH Q12HRT #30 nebu 09/28/20 02/28/21 02/27/21 Rx Epoetin Eric 10,000 Unit [Procrit] 10,000 unit IV LIZANDRO PRN vial 09/28/20 02/28/21 02/28/21 12:39 Rx Ipratropium/Albuterol Sulfate 1 ampul IH TIDRT #50 ampul.neb 09/28/20 02/28/21 Unknown Rx [DUONEB *Not for PRN Use*] Sodium Bicarbonate 650 mg PO BID #60 09/28/20 02/28/21 02/28/21 12:37 Rx Tiotropium [Spiriva] 2 puff IH DAILY 30 Days #1 cap 09/28/20 02/28/21 02/27/21 Rx Clopidogrel [Plavix] 75 mg PO QDAY tablet 02/13/21 02/28/21 Unknown Rx HYDROcodone/APAP 5-325 [[place] 1 each PO Q6H PRN tablet 02/13/21 02/28/21 Unknown Rx 5-325 mg TAB] Nitroglycerin [Nitrostat] 0.4 mg SL .Q5MIN PRN tablet 02/13/21 02/28/21 02/27/21 Rx Aspirin [Aspirin BABY CHEW TAB] 81 mg PO QDAY tab.chew 03/03/21 Unknown Rx Cholecalciferol Vit D3 [Vitamin D3 1,000 unit PO DAILY tablet 03/03/21 Unknown Rx 1,000 UNIT TAB] Lanthanum Carbonate [Fosrenol] 1,000 mg PO BIDAC tab.chew 03/03/21 Unknown Rx Pantoprazole [Protonix TAB] 40 mg PO QDAC tablet 03/03/21 Unknown Rx Prazosin 5 mg PO Q12HR capsule 03/03/21 Unknown Rx Active Medications: Generic Name Dose Route Start Last Admin Trade Name Freq PRN Reason Stop Dose Admin Albuterol/Ipratropium 1 ampul 03/13/21 20:00 03/15/21 13:52 Ipratropium/Albuterol Sulfate 3 Ml Ampul.Neb IH 1 ampul TIDRT DARNELL Administration Aspirin 81 mg 03/15/21 10:00 03/15/21 09:57 Aspirin 81 Mg Tab Chew PO 81 mg QDAY DARNELL Administration Atorvastatin Calcium 10 mg 03/13/21 22:00 03/14/21 21:14 Atorvastatin 10 Mg Tab PO 10 mg QHS DARNELL Administration Budesonide 0.5 mg 03/13/21 20:00 03/15/21 08:29 Budesonide 0.5 Mg/2 Ml Nebu IH 0.5 mg Q12HRT DARNELL Administration Cholecalciferol 1,000 unit 03/14/21 10:00 03/15/21 09:56 Cholecalciferol (Vit D3) 1000 Unit (25 Mcg) Tab PO 1,000 unit DAILY DARNELL Administration Clopidogrel Bisulfate 75 mg 03/13/21 15:00 03/15/21 09:57 Clopidogrel 75 Mg Tab PO 75 mg QDAY DARNELL Administration Hydralazine HCl 10 mg 03/13/21 15:56 Hydralazine 20 Mg/1 Ml Inj IV Q8HR PRN SBP >180 OR DBP >110 Sodium Chloride 100 mls @ 999 mls/hr 03/14/21 10:00 Nacl 0.9% IV LIZANDRO PRN Hypotension Isosorbide Mononitrate 60 mg 03/14/21 07:00 03/15/21 09:57 Isosorbide Mononitrate Er 60 Mg Tab PO 60 mg QDAY DARNELL Administration Lanthanum Carbonate 1,000 mg 03/13/21 16:30 03/15/21 09:56 Lanthanum Carbonate 500 Mg Tab PO 1,000 mg BIDAC DARNELL Administration Metoprolol Tartrate 100 mg 03/13/21 22:00 03/15/21 12:39 Metoprolol Tartrate 100 Mg Tab PO 100 mg BID DARNELL Administration Nifedipine 90 mg 03/13/21 15:56 03/15/21 12:39 Nifedipine Xl 60 Mg Tab PO 90 mg QDAY DARNELL Administration Nitroglycerin 0.4 mg 03/13/21 14:32 Nitroglycerin 0.4 Mg Tab Subl SL .Q5MIN PRN Chest Pain Pantoprazole Sodium 40 mg 03/14/21 07:30 03/15/21 10:00 Pantoprazole 40 Mg Tab PO 40 mg QDAC DARNELL Administration Prazosin HCl 1 mg 03/13/21 15:00 03/15/21 09:56 Prazosin 1 Mg Cap PO 1 mg Q12HR DARNELL Administration Warfarin Sodium 7.5 mg 03/14/21 17:00 03/14/21 18:18 Warfarin 7.5 Mg Tab PO 7.5 mg TuThSa [facility] Administration Protocol Warfarin Sodium 10 mg 03/15/21 17:00 Warfarin 10 Mg Tab PO MoWe [facility] Warfarin Sodium 7.5 mg 03/19/21 17:00 Warfarin 7.5 Mg Tab PO [place] [facility]
[2021-03-15] MEDS ORDERED: WARFARIN 10 MG TAB PO SCH (17:00)
[2021-03-15 17:01] LABS: Hematocrit 31.5 % (35.5-45.6); Hemoglobin 10.4 gm/dl (11.8-15.2); Mean Corpuscular HGB Conc 33 % (32-34); Mean Corpuscular Volume 88 fl (84-94); Platelet Count 242 K/mm3 (140-440)
[2021-03-15 17:21] LABS: Calcium 8.2 mg/dL (8.4-10.2)
[2021-03-16] MEDS: IPRATROPIUM/ALBUTEROL SULFATE 3 ML AMPUL.NEB IH SCH ×3 (02:59→14:57)
[2021-03-16 06:33] LABS: Basophils % (Auto) 0.4 % (0.0-1.8); Eosinophils # (Auto) 0.4 K/mm3 (0.0-0.4); Eosinophils % (Auto) 4.8 % (0.0-4.3); Hematocrit 33.4 % (35.5-45.6); Hemoglobin 11.2 gm/dl (11.8-15.2); Lymphocytes # (Auto) 0.9 K/mm3 (1.2-5.4); Lymphocytes % (Auto) 11.6 % (13.4-35.0); Mean Corpuscular HGB Conc 34 % (32-34); Mean Corpuscular Volume 88 fl (84-94); Monocytes # (Auto) 0.7 K/mm3 (0.0-0.8); Monocytes % (Auto) 9.3 % (0.0-7.3); Platelet Count 239 K/mm3 (140-440); Red Cell Distribution Width 15.1 % (13.2-15.2)
[2021-03-16 06:41] LABS: INR 2.04 (0.87-1.13)
[2021-03-16 06:53] LABS: Calcium 8.9 mg/dL (8.4-10.2)
[2021-03-16] MEDS: BUDESONIDE 0.5 MG/2 ML NEBU IH SCH (09:55)
--- NOTE | 2021-03-16 10:07 | Discharge Summary ---
Providers - Providers Date of Admission: 03/15/21 14:28 Date of discharge: 03/16/21 Attending physician: GLORIA COX 03/13/21 10:34 Consult to Physician [CONS] Stat Comment: Consulting Provider: JESÚS TRAYLOR Physician Instructions: Reason For Exam: dialysis 03/14/21 10:10 Consult to Physician [CONS] Routine Comment: Consulting Provider: KEZIA WEST Physician Instructions: Reason For Exam: SOB 03/14/21 15:37 Physical Therapy Evaluation and Treat [CONS] Routine Comment: Reason For Exam: Debility Primary care physician: VP PLATFORMS Hospitalization Condition: Stable Hospital course: This patient is a 80-year-old male with a significant history of ESRD on dialysis, asthma, COPD, heart failure, coronary artery disease 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 fib anticoagulated on Coumadin, recent h/o GI bleed and just discharged from [place], followed by Dr West presents to [facility] ER with chief complaint of shortness of breath which began while patient was in dialysis. Patient received albuterol nebulized breathing treatment by EMS without relief of symptoms. He was brought to ER for further evaluation. Patient placed on NRB. BP increased to 200's. IV hydralazine ordered. He was admitted to [facility] for further mx. Daily clinical course: 03/14: Plan for hemodialysis today, monitor vitals and wean off from O2 as tolerated. BP much stable today. Order PT eval and assess for home O2 requirement before discharge. If patient is clinically stable possible discharge tomorrow morning. We will transfer out to telemetry 03/15: Patient remains on 3 L O2, getting 2D echocardiogram at the bedside. PT recommended home health. Continue to follow clinically. BP appears to be hypotensive today. Will hold BP medications. Continue to wean off from O2 as tolerated, most likely patient will need oxygen on discharge. school office manager consulted for home O2 arrangement. 03/16: Patient will need 3 L home O2 on discharge, his O2 sat drops to 79% on exercise/ambulation. Patient otherwise clinically stable, vitals stable - BP meds were adjusted. HB stable. Tolerating coumadin w/o any bleeding episode. Recommended Repeat INR by Saturday following discharge and to cont COumadin 5mg po daily. His INR was 2.01 today. Discharge plan and Mx was discussed with the patient he verbalized understanding. D/c home when Home O2 is available. Disposition: [id number] HOME UNDER HOME HLTH Final Discharge Diagnosis (Prints w/discharge instructions): Acute hypoxic respiratory failure due to fluid overload and underlying COPD. Paroxysmal atrial fibrillation. History of GI bleed. Coronary artery disease status post PCI. End-stage renal disease on hemodialysis. Hyperlipidemia. COPD Time spent for discharge: 34 minutes Core Measure Documentation - Palliative Care Palliative Care/ Comfort Measures: Not Applicable - Core Measures Any of the following diagnoses?: none Exam - Physical Exam Narrative exam: GENERAL: Elderly -Swazi male lying on bed appeared to be in no discomfort. HEENT: Normocephalic. Atraumatic. No conjunctival congestion or icterus. Patient has moist mucous membranes. NECK: Supple. Trachea midline. CHEST/LUNGS: Coarse breath sound auscultated bilaterally, breathing nonlabored. No wheezes crackles or rhonchi. HEART/CARDIOVASCULAR: Regular in rate and rhythm. S1 and S2 positive. ABDOMEN: Abdomen is soft, nontender. Patient has normal bowel sounds. SKIN: There is no rash. Warm and dry. NEURO: No focal motor deficit. Follows command. MUSCULOSKELETAL: No joint effusion or tenderness. EXTRIMITY: No edema, no cyanosis or clubbing. PSYCH: Cooperative. - Constitutional Vitals: Temp Pulse Resp BP Pulse Ox 98.1 F 87 20 148/72 90 03/16/21 08:15 03/16/21 08:15 03/16/21 08:15 03/16/21 08:15 03/16/21 08:15 Plan Activity: fall precautions Weight Bearing Status: Weight Bear as Tolerated Diet: renal Special Instructions: restrict fluid intake to (1.2L per day), physical therapy, home oxygen via (3L n/c), home health RN Additional Instructions: Coumadin 5 mg daily, please check INR in 2 days post discharge. Follow up with: PRIMARY CAREMD [Primary Care Provider] - 3-5 Days CAROLINE BURGESS MD [Staff Physician] - 7 Days KEZIA WEST MD [Staff Physician] - 7 Days Forms: Warfarin Discharge Instruction Prescriptions: ISOSORBIDE MONOnitrate [Imdur ER] 30 mg PO QDAY #30 tablet Metoprolol [Lopressor TAB] 50 mg PO BID #60 tablet
--- NOTE | 2021-03-16 11:32 | Electrocardiograph Report ---
[facility] Test Date: 2021-03-13 Test Time: 07:28:02 Pat Name: DAISY PABON Department: Room: A482 Gender: M Food Operations Manager: JARRET : 1940 Requested By: KATHARINA ANGLIN Order Number: [id number] Reading MD: Qiana Joyce Measurements Intervals [place] Rate: 99 P: 58 SD: 149 QRS: -34 QRSD: 104 T: 109 QT: 352 QTc: 448 Interpretive Statements Sinus rhythm Multiple premature complexes, vent & supraven Left axis deviation LEFT VENTRICULAR HYPERTROPHY Compared to ECG 02/28/2021 13:25:59 Electronically Signed On 03-16-2021 11:32:00 EDT by Qiana Joyce
[2021-03-16] MEDS: LANTHANUM CARBONATE 500 MG TAB PO SCH ×2 (12:21→15:49)
--- NOTE | 2021-03-16 14:25 | Progress Note ---
Assessment and Plan Assessment - End-stage renal disease on hemodialysis - Hypertension - Anemia of ESRD - Hyperparathyroidism - Hyperphosphatemia - Paroxysmal atrial fibrillation - Recent history of GI bleed - COPD Recommendations - Continue HD TTS, seen druing HD today, continue low flows - Continue home antihypertensives - Hold antihypertensives on hemodialysis days for systolics less than 160 - Epogen with HD - Continue phosphorus binders - ESRD diet with 1.4 g/kg per day protein - Renally dose medication for creatinine clearance less than 15 cc/min - Reviewed cardiology note Subjective Date of service: 03/16/21 Principal diagnosis: SOB during HD Interval history: Seen during dialysis. Tolerating without competitions. Objective - Exam Narrative Exam: General: No acute distress HEENT: Oral mucosa moist Neck: Supple, no JVD Chest: Clear to auscultation bilaterally Heart: RRR, S1 and S2, no pericardial rub Abdomen: Soft, nontender, no renal bruit Extremity: No peripheral cyanosis, edema Neurological: Alert, awake, no asterixis Dermatology: No skin rash Psych: No agitation Musculoskeletal: No joint effusion - Vital Signs Vital signs: Vital Signs - 12hr 03/16/21 03/16/21 03/16/21 02:57 08:15 09:40 Temperature 97.8 F 98.1 F 97.8 F Pulse Rate 58 L 87 69 Respiratory 18 20 16 Rate Blood Pressure 116/69 148/72 143/71 O2 Sat by Pulse 92 90 Oximetry 03/16/21 03/16/21 03/16/21 09:50 10:00 10:15 Temperature Pulse Rate 69 84 84 Respiratory Rate Blood Pressure 142/71 155/83 145/86 O2 Sat by Pulse Oximetry 03/16/21 03/16/21 03/16/21 10:30 10:45 11:00 Temperature Pulse Rate 81 82 79 Respiratory Rate Blood Pressure 145/72 128/75 116/68 O2 Sat by Pulse Oximetry 03/16/21 03/16/21 03/16/21 11:15 11:30 11:45 Temperature Pulse Rate 80 81 81 Respiratory Rate Blood Pressure 109/66 119/62 109/68 O2 Sat by Pulse Oximetry 03/16/21 03/16/21 03/16/21 12:00 12:15 12:30 Temperature Pulse Rate 79 79 79 Respiratory Rate Blood Pressure 121/70 113/70 107/71 O2 Sat by Pulse Oximetry 03/16/21 03/16/21 03/16/21 12:45 12:50 13:26 Temperature 97.8 F Pulse Rate 84 85 80 Respiratory 16 Rate Blood Pressure 102/56 108/70 121/71 O2 Sat by Pulse Oximetry - Lab 03/16/21 05:53 03/16/21 05:53 Most recent lab results Calcium 8.9 mg/dL (8.4-10.2) 03/16/21 05:53 Medications & Allergies - Medications Allergies/Adverse Reactions: Allergies atorvastatin calcium [From Lipitor] Allergy (Mild, Verified 02/12/21 10:43) Unknown ACHES, RASH ciprofloxacin [From Cipro] Allergy (Mild, Verified 09/23/20 12:30) Bleeding NOSE BLEED ciprofloxacin HCl [From Cipro] Allergy (Mild, Verified 09/23/20 12:30) Bleeding NOSE BLEED simvastatin Allergy (Mild, Verified 09/23/20 12:30) Unknown ACHES Home Medications: Home Medications Medication Instructions Recorded Confirmed Last Taken Type ALBUTEROL NEB's [Proventil 0.083% 2.5 mg IH Q6HRT PRN #50 nebu 09/28/20 03/15/21 Unknown Rx NEBS] AtorvaSTATin 10 mg PO QHS #30 tablet 09/28/20 03/15/21 02/27/21 Rx Budesonide [Pulmicort Respules] 0.5 mg IH Q12HRT #30 nebu 09/28/20 03/15/21 02/27/21 Rx Epoetin Eric 10,000 Unit [Procrit] 10,000 unit IV LIZANDRO PRN vial 09/28/20 03/16/21 02/28/21 12:39 Rx Ipratropium/Albuterol Sulfate 1 ampul IH TIDRT #50 ampul.neb 09/28/20 03/15/21 Unknown Rx [DUONEB *Not for PRN Use*] Sodium Bicarbonate 650 mg PO BID #60 09/28/20 03/16/21 02/28/21 12:37 Rx Tiotropium [Spiriva] 2 puff IH DAILY 30 Days #1 cap 09/28/20 03/15/21 02/27/21 Rx Clopidogrel [Plavix] 75 mg PO QDAY tablet 02/13/21 03/15/21 Unknown Rx Nitroglycerin [Nitrostat] 0.4 mg SL .Q5MIN PRN tablet 02/13/21 03/15/21 02/27/21 Rx Cholecalciferol Vit D3 [Vitamin D3 1,000 unit PO DAILY tablet 03/03/21 03/15/21 Unknown Rx 1,000 UNIT TAB] Lanthanum Carbonate [Fosrenol] 1,000 mg PO BIDAC tab.chew 03/03/21 03/15/21 Unknown Rx Pantoprazole [Protonix TAB] 40 mg PO QDAC tablet 03/03/21 03/15/21 Unknown Rx Prazosin 5 mg PO Q12HR capsule 03/03/21 03/16/21 Unknown Rx Coumadin 0 mg PO DAILY 03/15/21 03/15/21 Unknown History ISOSORBIDE MONOnitrate [Imdur ER] 30 mg PO QDAY #30 tablet 03/16/21 Unknown Rx Metoprolol [Lopressor TAB] 50 mg PO BID #60 tablet 03/16/21 Unknown Rx Active Medications: Generic Name Dose Route Start Last Admin Trade Name Freq PRN Reason Stop Dose Admin Albuterol/Ipratropium 1 ampul 03/13/21 20:00 03/16/21 09:55 Ipratropium/Albuterol Sulfate 3 Ml Ampul.Neb IH Not Given TIDRT DARNELL Aspirin 81 mg 03/15/21 10:00 03/15/21 09:57 Aspirin 81 Mg Tab Chew PO 81 mg QDAY DARNELL Administration Atorvastatin Calcium 10 mg 03/13/21 22:00 03/15/21 22:53 Atorvastatin 10 Mg Tab PO 10 mg QHS DARNELL Administration Budesonide 0.5 mg 03/13/21 20:00 03/16/21 09:55 Budesonide 0.5 Mg/2 Ml Nebu IH Not Given Q12HRT DARNELL Cholecalciferol 1,000 unit 03/14/21 10:00 03/15/21 09:56 Cholecalciferol (Vit D3) 1000 Unit (25 Mcg) Tab PO 1,000 unit DAILY DARNELL Administration Clopidogrel Bisulfate 75 mg 03/13/21 15:00 03/15/21 09:57 Clopidogrel 75 Mg Tab PO 75 mg QDAY DARNELL Administration Hydralazine HCl 10 mg 03/13/21 15:56 Hydralazine 20 Mg/1 Ml Inj IV Q8HR PRN SBP >180 OR DBP >110 Sodium Chloride 100 mls @ 999 mls/hr 03/14/21 10:00 Nacl 0.9% IV LIZANDRO PRN Hypotension Isosorbide Mononitrate 60 mg 03/14/21 07:00 03/15/21 09:57 Isosorbide Mononitrate Er 60 Mg Tab PO 60 mg QDAY DARNELL Administration Lanthanum Carbonate 1,000 mg 03/13/21 16:30 03/16/21 12:21 Lanthanum Carbonate 500 Mg Tab PO Not Given BIDAC DARNELL Metoprolol Tartrate 100 mg 03/13/21 22:00 03/15/21 23:00 Metoprolol Tartrate 100 Mg Tab PO Not Given BID DARNELL Nifedipine 90 mg 03/13/21 15:56 03/15/21 12:39 Nifedipine Xl 60 Mg Tab PO 90 mg QDAY DARNELL Administration Nitroglycerin 0.4 mg 03/13/21 14:32 Nitroglycerin 0.4 Mg Tab Subl SL .Q5MIN PRN Chest Pain Pantoprazole Sodium 40 mg 03/14/21 07:30 03/15/21 10:00 Pantoprazole 40 Mg Tab PO 40 mg QDAC DARNELL Administration Prazosin HCl 1 mg 03/13/21 15:00 03/15/21 23:00 Prazosin 1 Mg Cap PO Not Given Q12HR DARNELL
--- NOTE | 2021-03-16 15:38 | Progress Note ---
Assessment and Plan --Acute hypoxic respiratory failure Likely fluid overloaded and underlying COPD s/p hemodialysis per nephrology Continue to monitor Patient likely will need home O2 as ambulatory O2 sat drops to 79% --Paroxysmal atrial fibrillation Continue beta leanna Continue Coumadin Monitor INR closely --History of GI bleed Recently admitted to this hospital with acute GI bleed and subsequently discharged to [place] [facility] for pill camera study due to active bleeding. Has a history of atrial fibrillation As per patient's family, patient was discharged from [place] [facility] on Plavix and Coumadin. No reported bleeding since then --Coronary artery disease status post stents On aspirin and Plavix --ESRD on hemodialysis Continue hemodialysis as scheduled --Hyperlipidemia Continue statins --COPD with exacerbation Nebulizer breathing treatment and continue supplemental oxygen as needed --DVT prophylaxis, SCD. Patient also on Coumadin --Full code Daily clinical course: 03/14: Plan for hemodialysis today, monitor vitals and wean off from O2 as tolerated. Order PT eval and assess for home O2 requirement before discharge. If patient is clinically stable possible discharge tomorrow morning. We will transfer out to telemetry 03/15: Patient remains on 3 L O2, getting 2D echocardiogram at the bedside. PT recommended home health. Continue to follow clinically. BP appears to be hypotensive today. Will hold BP medications. Continue to wean off from O2 as tolerated, most likely patient will need oxygen on discharge. clinical nurse manager consulted for home O2 arrangement. 03/16: Patient needs 3 L home O2 on discharge. Discharge pending on home O2 arrangement from [place]. Subjective Date of service: 03/16/21 Principal diagnosis: SOB during HD Interval history: Patient seen and examined. Medical records and medication list reviewed. No acute event overnight noted by the RN. Patient complains of difficulty breathing even on resting. Denies any chest pain patient is tolerating diet. PT recommended home health Waiting on home O2 arrangement Discussed plan of care at bedside with patient. Objective - Exam Narrative Exam: GENERAL: Elderly -[place] male lying on bed appeared to be in no discomfort. HEENT: Normocephalic. Atraumatic. No conjunctival congestion or icterus. Patient has moist mucous membranes. NECK: Supple. Trachea midline. CHEST/LUNGS: Coarse breath sound auscultated bilaterally, breathing nonlabored. No wheezes crackles or rhonchi. HEART/CARDIOVASCULAR: Regular in rate and rhythm. S1 and S2 positive. ABDOMEN: Abdomen is soft, nontender. Patient has normal bowel sounds. SKIN: There is no rash. Warm and dry. NEURO: No focal motor deficit. Follows command. MUSCULOSKELETAL: No joint effusion or tenderness. EXTRIMITY: No edema, no cyanosis or clubbing. PSYCH: Cooperative. - Constitutional Vitals: Vital Signs - 12hr 03/16/21 03/16/21 03/16/21 08:15 09:40 09:50 Temperature 98.1 F 97.8 F Pulse Rate 87 69 69 Pulse Rate [ Anterior Bilateral Throughout] Respiratory 20 16 Rate Respiratory Rate [Anterior Bilateral Throughout] Blood Pressure 148/72 143/71 142/71 O2 Sat by Pulse 90 Oximetry 03/16/21 03/16/21 03/16/21 10:00 10:15 10:30 Temperature Pulse Rate 84 84 81 Pulse Rate [ Anterior Bilateral Throughout] Respiratory Rate Respiratory Rate [Anterior Bilateral Throughout] Blood Pressure 155/83 145/86 145/72 O2 Sat by Pulse Oximetry 03/16/21 03/16/21 03/16/21 10:45 11:00 11:15 Temperature Pulse Rate 82 79 80 Pulse Rate [ Anterior Bilateral Throughout] Respiratory Rate Respiratory Rate [Anterior Bilateral Throughout] Blood Pressure 128/75 116/68 109/66 O2 Sat by Pulse Oximetry 03/16/21 03/16/21 03/16/21 11:30 11:45 12:00 Temperature Pulse Rate 81 81 79 Pulse Rate [ Anterior Bilateral Throughout] Respiratory Rate Respiratory Rate [Anterior Bilateral Throughout] Blood Pressure 119/62 109/68 121/70 O2 Sat by Pulse Oximetry 03/16/21 03/16/21 03/16/21 12:15 12:30 12:45 Temperature Pulse Rate 79 79 84 Pulse Rate [ Anterior Bilateral Throughout] Respiratory Rate Respiratory Rate [Anterior Bilateral Throughout] Blood Pressure 113/70 107/71 102/56 O2 Sat by Pulse Oximetry 03/16/21 03/16/21 03/16/21 12:50 13:26 14:57 Temperature 97.8 F Pulse Rate 85 80 Pulse Rate [ 71 Anterior Bilateral Throughout] Respiratory 16 Rate Respiratory 18 Rate [Anterior Bilateral Throughout] Blood Pressure 108/70 121/71 O2 Sat by Pulse Oximetry - Labs CBC & Chem 7: 03/16/21 05:53 03/16/21 05:53 Labs: Abnormal lab results 03/15/21 03/15/21 03/16/21 Range/Units 16:09 16:09 05:53 RBC 3.60 L (3.65-5.03) M/mm3 Hgb 10.4 L (11.8-15.2) gm/dl Hct 31.5 L (35.5-45.6) % Lymph % (Auto) (13.4-35.0) % [place] % (Auto) (0.0-7.3) % Eos % (Auto) (0.0-4.3) % Lymph # (Auto) (1.2-5.4) K/mm3 Seg Neutrophils % (40.0-70.0) % PT 23.0 H (12.2-14.9) Sec. INR 2.04 H (0.87-1.13) BUN 40 H (9-20) mg/dL Creatinine 7.8 H (0.8-1.3) mg/dL Glucose 103 H (75-100) mg/dL Calcium 8.2 L (8.4-10.2) mg/dL 03/16/21 03/16/21 Range/Units 05:53 05:53 RBC (3.65-5.03) M/mm3 Hgb 11.2 L (11.8-15.2) gm/dl Hct 33.4 L (35.5-45.6) % Lymph % (Auto) 11.6 L (13.4-35.0) % [place] % (Auto) 9.3 H (0.0-7.3) % Eos % (Auto) 4.8 H (0.0-4.3) % Lymph # (Auto) 0.9 L (1.2-5.4) K/mm3 Seg Neutrophils % 73.9 H (40.0-70.0) % PT (12.2-14.9) Sec. INR (0.87-1.13) BUN 48 H (9-20) mg/dL Creatinine 8.6 H (0.8-1.3) mg/dL Glucose (75-100) mg/dL Calcium (8.4-10.2) mg/dL HEART Score - HEART Score Troponin: Troponin T 0.176 ng/mL (0.00-0.029) H* 03/15/21 04:57
[2021-03-16] MEDS: PRAZOSIN 1 MG CAP PO SCH (15:48)
[2021-03-16] MEDS: ASPIRIN 81 MG TAB CHEW PO SCH (15:48)
[2021-03-16] MEDS: CLOPIDOGREL 75 MG TAB PO SCH (15:48)
[2021-03-16] MEDS: NIFEdipine XL 60 MG TAB PO SCH (15:48)
[2021-03-16] MEDS: CHOLECALCIFEROL (VIT D3) 1000 UNIT (25 mcg) TAB PO SCH (15:49)
[2021-03-16] MEDS: METOPROLOL TARTRATE 100 MG TAB PO SCH (15:49)
[2021-03-16] MEDS: PANTOPRAZOLE 40 MG TAB PO SCH (16:38)
[2021-03-16 16:49] VITALS: BP 122/70
--- NOTE | 2021-03-16 21:22 | Progress Note ---
Assessment and Plan Volume optimization via HD. Continue Coumadin for PAF. Continue bASA, Plavix, & statin. Continue BB as tolerated. May transition to Toprol. Otherwise stale cardiac status. Pt seen in conjunction with Dr. Rogelio Gutierrez, who agrees with the assessment and plan of care. - Patient Problems (1) Acute respiratory failure Status: Acute (2) Pleural effusion Status: Acute Plan to address problem: L (3) Acute on chronic heart failure with preserved ejection fraction (HFpEF) Status: Acute (4) ESRD on hemodialysis Status: Chronic (5) Chronic anemia Status: Chronic (6) Paroxysmal atrial fibrillation Status: Chronic (7) COPD (chronic obstructive pulmonary disease) Status: Chronic Qualifiers: Chronic bronchitis type: unspecified (8) Pericardial effusion without cardiac tamponade Status: Acute (9) CAD (coronary artery disease) Status: Chronic Qualifiers: Coronary Disease-Associated Artery/Lesion type: unspecified vessel or lesion type [place] vs. transplanted heart: [place] heart Associated angina: angina presence unspecified (10) Stented coronary artery Status: Chronic (11) Non-ST elevation [place] (NSTEMI) Status: Acute Plan to address problem: Type 2/Chronically elevated troponin in the setting of ESRD (12) HTN (hypertension) Status: Chronic Qualifiers: Hypertension type: essential hypertension Qualified Code(s): I10 - Essential (primary) hypertension (13) H/O: GI bleed Status: Chronic Subjective Date of service: 03/16/21 Principal diagnosis: ESRD/HD Interval history: Seen during HD this AM. Concerned about his HR. AF 80s at time of exam (noted to be in the 100-110s on tele intermittently this AM. Objective Last Vital Signs Temp 97.4 F L 03/16/21 15:33 Pulse 94 H 03/16/21 15:33 Resp 20 03/16/21 15:33 BP 122/70 03/16/21 15:33 Pulse Ox 94 03/16/21 15:33 - Physical Examination General: No Apparent Distress HEENT: Positive: EOMI, Normocephaly, Mucus Membranes Moist Neck: Positive: neck supple, trachea midline Cardiac: Positive: irregularly irregular, S1/S2 Lungs: Positive: Decreased Breath Sounds (L) Neuro: Positive: Grossly Intact Abdomen: Positive: Soft. Negative: Tender Skin: Negative: Rash, Wound Musculoskeletal: No Pain Extremities: Present: upper extr. pulses, lower extr. pulses, edema - Labs and Meds Coagulation 03/16/21 Range/Units 05:53 PT 23.0 H (12.2-14.9) Sec. INR 2.04 H (0.87-1.13) CBC 03/16/21 Range/Units 05:53 WBC 7.8 (4.5-11.0) K/mm3 RBC 3.80 (3.65-5.03) M/mm3 Hgb 11.2 L (11.8-15.2) gm/dl Hct 33.4 L (35.5-45.6) % Plt Count 239 (140-440) K/mm3 Lymph # (Auto) 0.9 L (1.2-5.4) K/mm3 [place] # (Auto) 0.7 (0.0-0.8) K/mm3 Eos # (Auto) 0.4 (0.0-0.4) K/mm3 Baso # (Auto) 0.0 (0.0-0.1) K/mm3 Comprehensive Metabolic Panel 03/16/21 Range/Units 05:53 Sodium 140 (137-145) mmol/L Potassium 4.2 (3.6-5.0) mmol/L Chloride 98.7 (98-107) mmol/L Carbon Dioxide 26 (22-30) mmol/L BUN 48 H (9-20) mg/dL Creatinine 8.6 H (0.8-1.3) mg/dL Glucose 92 (75-100) mg/dL Calcium 8.9 (8.4-10.2) mg/dL - Imaging and Cardiology EKG: report reviewed, image reviewed Echo: report reviewed (03/14/2021 - EF 50-55, mild-mod circumferential pericardial effusion, large left pleural effusion) Cardiac cath: report reviewed (02/2021) - Telemetry EKG Rhythm: Atrial Fibrillation - EKG Sinus rhythms and dysrhythmias: sinus rhythm Ventricular dysrhythmias: ventricular premature com QRS axis and voltage: left axis deviation
[2021-03-17] MEDS ORDERED: WARFARIN 5 MG TAB PO SCH (17:00)
[2021-03-19] MEDS ORDERED: WARFARIN 7.5 MG TAB PO SCH (17:00)
== END 2021-03-16 17:26 | disposition home health service (06) | DRG 280 ==
LOC: ED 07:20 → 3A 10:38 → IMCU 16:26 → OBSVTOIN 03-15 14:28 → 4A 03-15 18:27
PROVIDERS: ADMIT Internal Medicine; ATTEND Internal Medicine
PROC: 5A1D70Z Performance of Urinary Filtration, Intermittent, Less than 6 Hours Per Day (ICD-10-PCS; principal; 2021-03-13)
PROC: 5A1D70Z Performance of Urinary Filtration, Intermittent, Less than 6 Hours Per Day (ICD-10-PCS; 2021-03-14)
PROC: 5A1D70Z Performance of Urinary Filtration, Intermittent, Less than 6 Hours Per Day (ICD-10-PCS; 2021-03-16)
DX: I13.2 Hypertensive heart and chronic kidney disease with heart failure and with stage 5 chronic kidney disease, or end stage renal disease (principal); I21.A1 Myocardial infarction type 2; N18.6 End stage renal disease; J96.01 Acute respiratory failure with hypoxia; I50.33 Acute on chronic diastolic (congestive) heart failure; J91.8 Pleural effusion in other conditions classified elsewhere; I31.3 Pericardial effusion (noninflammatory); I25.2 Old myocardial infarction; Z99.2 Dependence on renal dialysis; M19.90 Unspecified osteoarthritis, unspecified site; J44.9 Chronic obstructive pulmonary disease, unspecified; Z95.5 Presence of coronary angioplasty implant and graft; I25.10 Atherosclerotic heart disease of native coronary artery without angina pectoris; E78.5 Hyperlipidemia, unspecified; I48.0 Paroxysmal atrial fibrillation; D63.1 Anemia in chronic kidney disease; E21.3 Hyperparathyroidism, unspecified; Z79.01 Long term (current) use of anticoagulants; Z79.899 Other long term (current) drug therapy; I42.9 Cardiomyopathy, unspecified; E87.70 Fluid overload, unspecified
CPT/HCPCS: 36415; 71045; 80048; 80053; 80061; 80074; 84484; 85007; 85025; 85027; 85610; 93005; 93308; 93321; 93325; 94640; G0378; A9270-GY; J0885

== ENCOUNTER 2021-04-23 15:17 | Inpatient (IN) | payer MEDICARE, OTHER ==
[2021-04-23] MEDS ORDERED: ALBUTEROL 2.5 MG/3 ML NEBU IH ONE (16:30)
[2021-04-23] MEDS ORDERED: IPRATROPIUM 0.02% NEBU 2.5 ML IH ONE (16:30)
--- NOTE | 2021-04-23 16:49 | Emergency Department Report ---
HPI - General Chief Complaint: Dyspnea/Respdistress Time Seen by Provider: 04/23/21 16:13 - HPI HPI: Room 6 The patient is a 80-year-old male present with a chief complaint of shortness of breath. The patient states for the past 3 days he has had dyspnea on exertion. Patient missed an occasional cough for 1 month that is occasionally productive. Patient denies chest pain fever or rhinorrhea. Patient states he did receive his scheduled dialysis 2 days ago (04/21/2021). ED Past Medical Hx - Past Medical History Hx Hypertension: Yes Hx Heart Attack/AMI: Yes (x2; 2010) Hx Congestive Heart Failure: Yes Hx Renal Disease: Yes (dialysis MWF fistula L FA) Hx Arthritis: Yes Hx Asthma: Yes Hx COPD: Yes Additional medical history: anemia - Surgical History Hx Coronary Stent: Yes - Family History Family history: no significant - Social History Smoking Status: Former Smoker (None x40 years) Substance Use Type: None ( denies illicit drug use) - Medications Home Medications: Home Medications Medication Instructions Recorded Confirmed Last Taken Type ALBUTEROL NEB's [Proventil 0.083% 2.5 mg IH Q6HRT PRN #50 nebu 09/28/20 03/15/21 Unknown Rx NEBS] AtorvaSTATin 10 mg PO QHS #30 tablet 09/28/20 03/15/21 02/27/21 Rx Budesonide [Pulmicort Respules] 0.5 mg IH Q12HRT #30 nebu 09/28/20 03/15/21 02/27/21 Rx Epoetin Eric 10,000 Unit [Procrit] 10,000 unit IV LIZANDRO PRN vial 09/28/20 03/16/21 02/28/21 12:39 Rx Ipratropium/Albuterol Sulfate 1 ampul IH TIDRT #50 ampul.neb 09/28/20 03/15/21 Unknown Rx [DUONEB *Not for PRN Use*] Sodium Bicarbonate 650 mg PO BID #60 09/28/20 03/16/21 02/28/21 12:37 Rx Tiotropium [Spiriva] 2 puff IH DAILY 30 Days #1 cap 09/28/20 03/15/21 02/27/21 Rx Clopidogrel [Plavix] 75 mg PO QDAY tablet 02/13/21 03/15/21 Unknown Rx Nitroglycerin [Nitrostat] 0.4 mg SL .Q5MIN PRN tablet 02/13/21 03/15/21 02/27/21 Rx Cholecalciferol Vit D3 [Vitamin D3 1,000 unit PO DAILY tablet 03/03/21 03/15/21 Unknown Rx 1,000 UNIT TAB] Lanthanum Carbonate [Fosrenol] 1,000 mg PO BIDAC tab.chew 03/03/21 03/15/21 Unknown Rx Pantoprazole [Protonix TAB] 40 mg PO QDAC tablet 03/03/21 03/15/21 Unknown Rx Prazosin 5 mg PO Q12HR capsule 03/03/21 03/16/21 Unknown Rx Coumadin 0 mg PO DAILY 03/15/21 03/15/21 Unknown History ISOSORBIDE MONOnitrate [Imdur ER] 30 mg PO QDAY #30 tablet 03/16/21 Unknown Rx Metoprolol [Lopressor TAB] 50 mg PO BID #60 tablet 03/16/21 Unknown Rx ED Review of Systems ROS: Stated complaint: [place] Other details as noted in HPI Constitutional: denies: fever Eyes: denies: eye pain ENT: denies: throat pain Respiratory: cough, shortness of breath, SOB with exertion Cardiovascular: denies: chest pain Endocrine: no symptoms reported Gastrointestinal: denies: abdominal pain Genitourinary: denies: testicular pain Musculoskeletal: denies: back pain Neurological: denies: headache Physical Exam - Physical Exam Vital Signs: Vital Signs 04/23/21 04/23/21 04/23/21 15:55 16:06 16:31 Temperature 98.4 F Pulse Rate 79 78 76 Respiratory 22 19 25 H Rate Blood Pressure 130/58 Blood Pressure 142/73 [Right] O2 Sat by Pulse 99 99 99 Oximetry Physical Exam: GENERAL: The patient is well-developed well-nourished male lying on stretcher not appearing to be in acute distress. [] HEENT: Normocephalic. Atraumatic. Extraocular motions are intact. Patient has moist mucous membranes. NECK: Supple. Trachea midline CHEST/LUNGS: Diminished breath sounds throughout. There is no respiratory distress noted. HEART/CARDIOVASCULAR: Regular. There is no tachycardia. There is no gallop rub or murmur. ABDOMEN: Abdomen is soft, nontender. Patient has normal bowel sounds. There is no abdominal distention. SKIN: There is no rash. There is no edema. There is no diaphoresis. NEURO: The patient is awake, alert, and oriented. The patient is cooperative. The patient has no focal neurologic deficits. The patient has normal speech MUSCULOSKELETAL: There is no evidence of acute injury. ED Course Vital Signs 04/23/21 04/23/21 04/23/21 15:55 16:06 16:31 Temperature 98.4 F Pulse Rate 79 78 76 Respiratory 22 19 25 H Rate Blood Pressure 130/58 Blood Pressure 142/73 [Right] O2 Sat by Pulse 99 99 99 Oximetry ED Medical Decision Making - Lab Data Result diagrams: 04/23/21 16:33 04/23/21 16:33 Laboratory Tests 04/23/21 04/23/21 04/23/21 16:33 16:33 16:33 WBC 11.8 H RBC 3.21 L Hgb 9.1 L Hct 27.6 L MCV 86 MCH 28 MCHC 33 RDW 16.3 H Plt Count 195 Lymph % (Auto) 4.6 L [place] % (Auto) 7.3 Eos % (Auto) 0.5 Baso % (Auto) 0.4 Lymph # (Auto) 0.5 L [place] # (Auto) 0.9 H Eos # (Auto) 0.1 Baso # (Auto) 0.1 Seg Neutrophils % 87.2 H Seg Neutrophils # 10.3 H PT 19.9 H INR 1.64 H Sodium 133 L Potassium 4.8 Chloride 92.7 L Carbon Dioxide 24 Anion Gap 21 BUN 44 H Creatinine 8.8 H Estimated GFR 7 BUN/Creatinine Ratio 5 Glucose 101 H Calcium 8.9 Total Bilirubin 0.30 AST 11 ALT 6 L Alkaline Phosphatase 54 Total Creatine Kinase 93 CK-MB (CK-2) 2.6 CK-MB (CK-2) Rel Index 2.7 Troponin T 0.162 H* NT-Pro-B Natriuret Pep 00225 H Total Protein 7.0 Albumin 3.4 L Albumin/Globulin Ratio 0.9 Triglycerides 112 Cholesterol 154 LDL Cholesterol Direct 87 HDL Cholesterol 47 Cholesterol/HDL Ratio 3.27 - EKG Data -: EKG Interpreted by Mn EKG shows normal: sinus rhythm Rate: normal - EKG Data When compared to previous EKG there are: no significant change Interpretation: unchanged when compared t (03/13/2021) - Radiology Data Radiology results: report reviewed (Chest x-ray), image reviewed (Chest x-ray) interpreted by me: Chest [id number]-sized left pleural effusion. No pneumothorax. [facility] [address] [place] [address] XRay Report Signed Patient: DAISY PABON MR#: [id number] : 1940 Acct:[id number] Age/Sex: 80 / M ADM Date: 04/23/21 Loc: ED Attending Dr: Ordering Physician: RONDA ELMORE MD Date of Service: 04/23/21 Procedure(s): XR chest 1V ap Accession Number(s): [id number] cc: RONDA ELMORE MD Fluoro Time In Minutes: XR chest 1V ap INDICATION / CLINICAL INFORMATION: Shortness of breath. COMPARISON: 03/13/2021 FINDINGS: SUPPORT DEVICES: None. HEART /PULMONARY VASCULATURE: There is cardiac enlargement without significant pulmonary vasculature congestion. LUNGS / PLEURA: Enlarging moderate left pleural effusion and adjacent airspace opacity. Right lung is clear. No pneumothorax. ADDITIONAL FINDINGS: No significant additional findings. IMPRESSION: Enlarging moderate left pleural effusion and adjacent airspace opacity, which may reflect atelectasis or pneumonia. Signer Name: Patience Llamas MD Signed: 04/23/2021 4:47 PM Workstation Name: [id number] Transcribed By: TWAN Dictated By: PATIENCE LLAMAS MD Electronically Authenticated By: PATIENCE LLAMAS MD Signed Date/Time: 04/23/211646 DD/ 45 TD/TT: Print Cancel - Differential Diagnosis COPD exacerbation, pneumonia, symptomatic anemia Critical care attestation.: If time is entered above; I have spent that time in minutes in the direct care of this critically ill patient, excluding procedure time. ED Disposition Clinical Impression: Dyspnea on exertion, Pleural effusion, left Disposition: -09 OP ADMIT IP TO THIS HOSP Is pt being admited?: Yes Does the pt Need Aspirin: Yes Condition: Fair
[2021-04-23 16:58] LABS: Basophils # (Auto) 0.1 K/mm3 (0.0-0.1); Basophils % (Auto) 0.4 % (0.0-1.8); Eosinophils # (Auto) 0.1 K/mm3 (0.0-0.4); Eosinophils % (Auto) 0.5 % (0.0-4.3); Hematocrit 27.6 % (35.5-45.6); Hemoglobin 9.1 gm/dl (11.8-15.2); Lymphocytes # (Auto) 0.5 K/mm3 (1.2-5.4); Lymphocytes % (Auto) 4.6 % (13.4-35.0); Mean Corpuscular HGB Conc 33 % (32-34); Mean Corpuscular Volume 86 fl (84-94); Monocytes # (Auto) 0.9 K/mm3 (0.0-0.8); Monocytes % (Auto) 7.3 % (0.0-7.3); Platelet Count 195 K/mm3 (140-440); Red Blood Count 3.21 M/mm3 (3.65-5.03); Red Cell Distribution Width 16.3 % (13.2-15.2)
[2021-04-23 17:11] LABS: INR 1.64 (0.87-1.13)
[2021-04-23 17:21] LABS: Creatine Kinase MB 2.6 ng/mL (0.0-4.0)
[2021-04-23 17:22] LABS: Albumin 3.4 g/dL (3.9-5); Calcium 8.9 mg/dL (8.4-10.2)
[2021-04-23 17:45] LABS: Chol/HDL Ratio 3.27 %
[2021-04-23] MEDS ORDERED: ASPIRIN 325 MG TAB PO ONE (18:09)
--- NOTE | 2021-04-23 21:05 | History and Physical Report ---
History of Present Illness Date of examination: 04/23/21 Date of admission: 04/23/2022 Chief complaint: Increasing shortness of breath for couple days History of present illness: 80-year-old male with history of end-stage renal disease, COPD, coronary artery disease and hyperlipidemia GERD and hypertension comes in for increasing shortness of breath. Patient is on hemodialysis and got his last hemodialysis on Saturday. Cough present for 1 month. Shortness of breath present on minimal exertion and lying down. Compliant with hemodialysis. Compliant with medicat ions. No fever or chills. In the emergency room the work-up revealed moderate sized pleural effusion on the left side. Patient being admitted for the left pleural effusion and shortness of breath. - Past Medical History --Hypertension: Yes --Heart Attack/AMI: Yes (x2; 2009) --Congestive Heart Failure: Yes --Renal Disease: Yes (dialysis MWF fistula L FA) --Arthritis: Yes --Asthma: Yes --COPD: Yes Additional medical history: anemia - Surgical History --Coronary Stent: Yes - Family History Family history: no significant - Social History Smoking Status: Former Smoker (None x40 years) Substance Use Type: None ( denies illicit drug use) - Medications Home Medications: Home Medications Medication Instructions Recorded Confirmed Last Taken Type ALBUTEROL NEB's [Proventil 0.083% 2.5 mg IH Q6HRT PRN #50 nebu 09/28/20 03/15/21 Unknown Rx NEBS] AtorvaSTATin 10 mg PO QHS #30 tablet 09/28/20 03/15/21 02/27/21 Rx Budesonide [Pulmicort Respules] 0.5 mg IH Q12HRT #30 nebu 09/28/20 03/15/21 02/27/21 Rx Epoetin Eric 10,000 Unit [Procrit] 10,000 unit IV LIZANDRO PRN vial 09/28/20 03/16/21 02/28/21 12:39 Rx Ipratropium/Albuterol Sulfate 1 ampul IH TIDRT #50 ampul.neb 09/28/20 03/15/21 Unknown Rx [DUONEB *Not for PRN Use*] Sodium Bicarbonate 650 mg PO BID #60 09/28/20 03/16/21 02/28/21 12:37 Rx Tiotropium [Spiriva] 2 puff IH DAILY 30 Days #1 cap 09/28/20 03/15/21 02/27/21 Rx Clopidogrel [Plavix] 75 mg PO QDAY tablet 02/13/21 03/15/21 Unknown Rx Nitroglycerin [Nitrostat] 0.4 mg SL .Q5MIN PRN tablet 02/13/21 03/15/21 02/27/21 Rx Cholecalciferol Vit D3 [Vitamin D3 1,000 unit PO DAILY tablet 03/03/21 03/15/21 Unknown Rx 1,000 UNIT TAB] Lanthanum Carbonate [Fosrenol] 1,000 mg PO BIDAC tab.chew 03/03/21 03/15/21 Unknown Rx Pantoprazole [Protonix TAB] 40 mg PO QDAC tablet 03/03/21 03/15/21 Unknown Rx Prazosin 5 mg PO Q12HR capsule 03/03/21 03/16/21 Unknown Rx Coumadin 0 mg PO DAILY 03/15/21 03/15/21 Unknown History ISOSORBIDE MONOnitrate [Imdur ER] 30 mg PO QDAY #30 tablet 03/16/21 Unknown Rx Metoprolol [Lopressor TAB] 50 mg PO BID #60 tablet 03/16/21 Unknown Rx ED Review of Systems ROS: Constitutional no weight loss or weight gain no fever or chills HEENT no sore throat no post nasal drip no diplopia Neck no neck stiffness no lymph gland enlargement Chest and lungs shortness of breath present CVS no chest pain no diaphoresis no palpitations GI no nausea no vomiting no diarrhea Genitourinary system no dysuria no flank pain Musculoskeletal system no muscle pains no joint pains [employer]UN[employer] no syncope no seizures Skin no rash no itching Psychiatric no depression no homicidal or suicidal tendencies Hematologic no lymphedema or bruising Endocrine no polydipsia no polyuria no cold intolerance no heat intolerance Medications and Allergies Allergies Allergy/AdvReac Type Severity Reaction Status Date / Time atorvastatin calcium Allergy Mild Unknown Verified 02/12/21 10:43 [From Lipitor] ciprofloxacin [From Cipro] Allergy Mild Bleeding Verified 09/23/20 12:30 ciprofloxacin HCl Allergy Mild Bleeding Verified 09/23/20 12:30 [From Cipro] simvastatin Allergy Mild Unknown Verified 09/23/20 12:30 Home Medications Medication Instructions Recorded Confirmed Last Taken Type ALBUTEROL NEB's [Proventil 0.083% 2.5 mg IH Q6HRT PRN #50 nebu 09/28/20 04/24/21 Unknown Rx NEBS] AtorvaSTATin 10 mg PO QHS #30 tablet 09/28/20 04/24/21 02/27/21 Rx Budesonide [Pulmicort Respules] 0.5 mg IH Q12HRT #30 nebu 09/28/20 04/24/21 02/27/21 Rx Epoetin Eric 10,000 Unit [Procrit] 10,000 unit IV LIZANDRO PRN vial 09/28/20 04/24/21 02/28/21 12:39 Rx Ipratropium/Albuterol Sulfate 1 ampul IH TIDRT #50 ampul.neb 09/28/20 04/24/21 Unknown Rx [DUONEB *Not for PRN Use*] Sodium Bicarbonate 650 mg PO BID #60 09/28/20 04/24/21 02/28/21 12:37 Rx Tiotropium [Spiriva] 2 puff IH DAILY 30 Days #1 cap 09/28/20 04/24/21 02/27/21 Rx Clopidogrel [Plavix] 75 mg PO QDAY tablet 02/13/21 04/24/21 Unknown Rx Nitroglycerin [Nitrostat] 0.4 mg SL .Q5MIN PRN tablet 02/13/21 04/24/21 02/27/21 Rx Cholecalciferol Vit D3 [Vitamin D3 1,000 unit PO DAILY tablet 03/03/21 04/24/21 Unknown Rx 1,000 UNIT TAB] Lanthanum Carbonate [Fosrenol] 1,000 mg PO BIDAC tab.chew 03/03/21 04/24/21 Unknown Rx Pantoprazole [Protonix TAB] 40 mg PO QDAC tablet 03/03/21 04/24/21 Unknown Rx Prazosin 5 mg PO Q12HR capsule 03/03/21 04/24/21 Unknown Rx Coumadin 0 mg PO DAILY 03/15/21 04/24/21 Unknown History ISOSORBIDE MONOnitrate [Imdur ER] 30 mg PO QDAY #30 tablet 03/16/21 04/24/21 Unknown Rx Metoprolol [Lopressor TAB] 50 mg PO BID #60 tablet 03/16/21 04/24/21 Unknown Rx Exam - Constitutional Vitals: Temp Pulse Resp BP Pulse Ox 98.4 F 90 26 H 117/75 98 04/23/21 15:55 04/23/21 20:01 04/23/21 20:01 04/23/21 20:01 04/23/21 20:01 General appearance: Present: mild distress, well-nourished - EENT Eyes: Present: PERRL ENT: hearing intact, clear oral mucosa - Neck Neck: Present: supple, normal ROM - Respiratory Respiratory effort: normal Respiratory: left: diminished (Diminished air entry on the left side), bilateral: CTA - Cardiovascular Heart rate: 88 Rhythm: regular (Diminished air entry on the left side) Heart Sounds: Present: S1 & S2. Absent: rub, click - Extremities Extremities: pulses symmetrical, No edema Peripheral Pulses: within normal limits - Abdominal General gastrointestinal: Present: soft, non-tender, non-distended, normal bowel sounds Male genitourinary: Present: normal - Integumentary Integumentary: Present: clear, warm, dry - Musculoskeletal Musculoskeletal: gait normal, strength equal bilaterally - Psychiatric Psychiatric: appropriate mood/affect, intact judgment & insight - Neurologic Neurologic: CNII-XII intact, moves all extremities - Allied Health Allied health notes reviewed: nursing, case management HEART Score - HEART Score Troponin: Troponin T 0.162 ng/mL (0.00-0.029) H* 04/23/21 16:33 Results - Labs CBC & Chem 7: 04/23/21 16:33 04/23/21 16:33 Labs: Laboratory Last Values WBC 11.8 K/mm3 (4.5-11.0) H 04/23/21 16:33 RBC 3.21 M/mm3 (3.65-5.03) L 04/23/21 16:33 Hgb 9.1 gm/dl (11.8-15.2) L 04/23/21 16:33 Hct 27.6 % (35.5-45.6) L 04/23/21 16:33 MCV 86 fl (84-94) 04/23/21 16:33 MCH 28 pg (28-32) 04/23/21 16:33 MCHC 33 % (32-34) 04/23/21 16:33 RDW 16.3 % (13.2-15.2) H 04/23/21 16:33 Plt Count 195 K/mm3 (140-440) 04/23/21 16:33 Lymph % (Auto) 4.6 % (13.4-35.0) L 04/23/21 16:33 [place] % (Auto) 7.3 % (0.0-7.3) 04/23/21 16:33 Eos % (Auto) 0.5 % (0.0-4.3) 04/23/21 16:33 Baso % (Auto) 0.4 % (0.0-1.8) 04/23/21 16:33 Lymph # (Auto) 0.5 K/mm3 (1.2-5.4) L 04/23/21 16:33 [place] # (Auto) 0.9 K/mm3 (0.0-0.8) H 04/23/21 16:33 Eos # (Auto) 0.1 K/mm3 (0.0-0.4) 04/23/21 16:33 Baso # (Auto) 0.1 K/mm3 (0.0-0.1) 04/23/21 16:33 Seg Neutrophils % 87.2 % (40.0-70.0) H 04/23/21 16:33 Seg Neutrophils # 10.3 K/mm3 (1.8-7.7) H 04/23/21 16:33 PT 19.9 Sec. (12.2-14.9) H 04/23/21 16:33 INR 1.64 (0.87-1.13) H 04/23/21 16:33 Sodium 133 mmol/L (137-145) L 04/23/21 16:33 Potassium 4.8 mmol/L (3.6-5.0) 04/23/21 16:33 Chloride 92.7 mmol/L (98-107) L 04/23/21 16:33 Carbon Dioxide 24 mmol/L (22-30) 04/23/21 16:33 Anion Gap 21 mmol/L 04/23/21 16:33 BUN 44 mg/dL (9-20) H 04/23/21 16:33 Creatinine 8.8 mg/dL (0.8-1.3) H 04/23/21 16:33 Estimated GFR 7 ml/min 04/23/21 16:33 BUN/Creatinine Ratio 5 % 04/23/21 16:33 Glucose 101 mg/dL (75-100) H 04/23/21 16:33 Calcium 8.9 mg/dL (8.4-10.2) 04/23/21 16:33 Total Bilirubin 0.30 mg/dL (0.1-1.2) 04/23/21 16:33 AST 11 units/L (5-40) 04/23/21 16:33 ALT 6 units/L (7-56) L 04/23/21 16:33 Alkaline Phosphatase 54 units/L (35-129) 04/23/21 16:33 Total Creatine Kinase 93 units/L (55-170) 04/23/21 16:33 CK-MB (CK-2) 2.6 ng/mL (0.0-4.0) 04/23/21 16:33 CK-MB (CK-2) Rel Index 2.7 (0-4) 04/23/21 16:33 Troponin T 0.162 ng/mL (0.00-0.029) H* 04/23/21 16:33 NT-Pro-B Natriuret Pep 73944 pg/mL (0-900) H 04/23/21 16:33 Total Protein 7.0 g/dL (6.3-8.2) 04/23/21 16:33 Albumin 3.4 g/dL (3.9-5) L 04/23/21 16:33 Albumin/Globulin Ratio 0.9 % 04/23/21 16:33 Triglycerides 112 mg/dL (2-149) 04/23/21 16:33 Cholesterol 154 mg/dL (50-199) 04/23/21 16:33 LDL Cholesterol Direct 87 mg/dL (50-130) 04/23/21 16:33 HDL Cholesterol 47 mg/dL (40-59) 04/23/21 16:33 Cholesterol/HDL Ratio 3.27 % 04/23/21 16:33 - Imaging and Cardiology EKG: report reviewed (Sinus rhythm no acute ST-T wave changes) Chest x-ray: report reviewed (Moderate to severe left pleural effusion) Assessment and Plan Advance Directives: Yes (Full code) VTE prophylaxis?: Chemical Plan of care discussed with patient/family: Yes - Patient Problems (1) Acute respiratory failure with hypoxia Current Visit: Yes Status: Acute Plan to address problem: Secondary to severe left pleural effusion (2) Pleural effusion, left Current Visit: Yes Status: Acute Plan to address problem: Needs thoracentesis Requested thoracentesis by radiology Pleural fluid chemistry ordered (3) End-stage renal disease on hemodialysis Current Visit: Yes Status: Chronic Plan to address problem: Nephrology consulted (4) Hyponatremia Current Visit: Yes Status: Acute Plan to address problem: Increased ultrafiltration should help the hyponatremia (5) COPD (chronic obstructive pulmonary disease) Current Visit: Yes Status: Chronic Qualifiers: COPD type: chronic bronchitis Plan to address problem: DuoNebs as needed and [id number] (6) Coronary artery disease Current Visit: Yes Status: Chronic Qualifiers: Coronary Disease-Associated Artery/Lesion type: [place] artery [place] vs. transplanted heart: [place] heart Plan to address problem: Continue isosorbide mononitrate and Plavix (7) Atrial fibrillation Current Visit: Yes Status: Chronic Qualifiers: Atrial fibrillation type: persistent (not longstanding) Qualified Code(s): I48.19 - Other persistent atrial fibrillation; I48.1 - Persistent atrial fibrillation Plan to address problem: Patient on Coumadin (8) Hypertension Current Visit: Yes Status: Chronic Qualifiers: Hypertension type: essential hypertension Qualified Code(s): I10 - Es sential (primary) hypertension Plan to address problem: Continue antihypertensives and adjust medications (9) DVT prophylaxis Current Visit: Yes Status: Acute Plan to address problem: On heparin and GI prophylaxis
[2021-04-23] MEDS ORDERED: ALBUTEROL 2.5 MG/3 ML NEBU IH PRN (21:21)
[2021-04-23] MEDS ORDERED: EPOETIN ALFA-EPBX 10,000 UNIT/1 ML VIAL IV PRN (21:21)
[2021-04-23] MEDS ORDERED: NITROGLYCERIN 0.4 MG TAB SUBL SL PRN (21:27)
[2021-04-24] MEDS: SODIUM BICARBONATE 650 MG TAB PO SCH ×3 (00:11→21:30)
[2021-04-24] MEDS: PRAZOSIN 5 MG CAP PO SCH ×3 (00:12→21:30)
[2021-04-24] MEDS: METOPROLOL TARTRATE 50 MG TAB PO SCH ×3 (00:12→21:30)
[2021-04-24] MEDS ORDERED: IPRATROPIUM/ALBUTEROL SULFATE 3 ML AMPUL.NEB IH PRN (07:36)
[2021-04-24] MEDS: LANTHANUM CARBONATE 500 MG TAB PO SCH ×2 (08:30→18:37)
[2021-04-24] MEDS: PANTOPRAZOLE 40 MG TAB PO SCH (08:34)
[2021-04-24] MEDS: BUDESONIDE 0.5 MG/2 ML NEBU IH SCH ×2 (08:45→20:23)
[2021-04-24] MEDS: IPRATROPIUM/ALBUTEROL SULFATE 3 ML AMPUL.NEB IH SCH ×4 (08:45→20:23)
[2021-04-24] MEDS: CHOLECALCIFEROL (VIT D3) 1000 UNIT (25 mcg) TAB PO SCH (09:26)
--- NOTE | 2021-04-24 09:35 | Progress Note ---
Assessment and Plan Assessment and plan: -- Acute respiratory failure with hypoxia Current Visit: Yes Status: Acute Secondary to severe left pleural effusion Secondary to fluid overload due to ESRD Treat underlying cause --Pleural effusion, left Current Visit: Yes Status: Acute S/P thoracentesis removal of 1100 mL pleural fluid Sent for analysis, postprocedure chest x-ray reviewed Continue supportive care -- End-stage renal disease on hemodialysis Current Visit: Yes Status: Chronic Nephrology following, hemodialysis today And HD per schedule --Hyponatremia Current Visit: Yes Status: Acute Due to fluid overload , HD per schedule Nephrology consulted --History of COPD (chronic obstructive pulmonary disease) Current Visit: Yes Status: Chronic Oxygen titrate O2 sats to more than 90% DuoNebs and supportive care as needed --History of coronary artery disease Current Visit: Yes Status: Chronic Continue current cardiac medications isosorbide mononitrate and Plavix --Non-ST elevation [place] type II Current Visit: Yes Status: Acute. Patient has nonspecific chronic elevation of troponins We will closely monitor consider cardiology evaluation if needed and if patient has cardiac symptoms --History of atrial fibrillation Current Visit: Yes Status: Chronic Rate controlled , continue metoprolol and Coumadin Monitor INR therapeutic goal between 2 and 3 --Hypertension Current Visit: Yes Status: Chronic Continue antihypertensives and adjust medications --DVT prophylaxis Current Visit: Yes Status: Acute On heparin and GI prophylaxis Closely monitor the patient and adjust the management as needed Plan of care reviewed with the patient and his nurse 04/24/2021; thoracentesis and removal of 1100 mL of pleural fluid Follow fluid analysis, HD per schedule today History Interval history: Patient had ultrasound-guided thoracentesis and removal of 1100 mL of pleural fluid Sent for fluid analysis Subsequently patient underwent hemodialysis Patient feels slightly better no new complaints Vital signs noted Hospitalist Physical - Constitutional Vitals: Temp Pulse Resp BP Pulse Ox 98.5 F 91 H 21 149/75 98 04/24/21 02:01 04/24/21 09:26 04/24/21 02:01 04/24/21 02:01 04/24/21 02:01 General appearance: Present: mild distress, well-nourished - EENT Eyes: Present: PERRL, EOM intact - Neck Neck: Present: supple, normal ROM - Respiratory Respiratory effort: normal Respiratory: left: diminished (Left more than right), bilateral: rales, negative: rhonchi, wheezing - Cardiovascular Rhythm: regular Heart Sounds: Present: S1 & S2 - Extremities Extremities: no ischemia, No edema - Abdominal General gastrointestinal: soft, non-tender, non-distended, normal bowel sounds - Integumentary Integumentary: Present: clear, warm - Psychiatric Psychiatric: appropriate mood/affect, cooperative - Neurologic Neurologic: moves all extremities HEART Score - HEART Score Troponin: Troponin T 0.162 ng/mL (0.00-0.029) H* 04/23/21 16:33 Results - Labs CBC & Chem 7: 04/23/21 16:33 04/23/21 16:33 Labs: Laboratory Last Values WBC 11.8 K/mm3 (4.5-11.0) H 04/23/21 16:33 RBC 3.21 M/mm3 (3.65-5.03) L 04/23/21 16:33 Hgb 9.1 gm/dl (11.8-15.2) L 04/23/21 16:33 Hct 27.6 % (35.5-45.6) L 04/23/21 16:33 MCV 86 fl (84-94) 04/23/21 16:33 MCH 28 pg (28-32) 04/23/21 16:33 MCHC 33 % (32-34) 04/23/21 16:33 RDW 16.3 % (13.2-15.2) H 04/23/21 16:33 Plt Count 195 K/mm3 (140-440) 04/23/21 16:33 Lymph % (Auto) 4.6 % (13.4-35.0) L 04/23/21 16:33 [place] % (Auto) 7.3 % (0.0-7.3) 04/23/21 16:33 Eos % (Auto) 0.5 % (0.0-4.3) 04/23/21 16:33 Baso % (Auto) 0.4 % (0.0-1.8) 04/23/21 16:33 Lymph # (Auto) 0.5 K/mm3 (1.2-5.4) L 04/23/21 16:33 [place] # (Auto) 0.9 K/mm3 (0.0-0.8) H 04/23/21 16:33 Eos # (Auto) 0.1 K/mm3 (0.0-0.4) 04/23/21 16:33 Baso # (Auto) 0.1 K/mm3 (0.0-0.1) 04/23/21 16:33 Seg Neutrophils % 87.2 % (40.0-70.0) H 04/23/21 16:33 Seg Neutrophils # 10.3 K/mm3 (1.8-7.7) H 04/23/21 16:33 PT 19.9 Sec. (12.2-14.9) H 04/23/21 16:33 INR 1.64 (0.87-1.13) H 04/23/21 16:33 Sodium 133 mmol/L (137-145) L 04/23/21 16:33 Potassium 4.8 mmol/L (3.6-5.0) 04/23/21 16:33 Chloride 92.7 mmol/L (98-107) L 04/23/21 16:33 Carbon Dioxide 24 mmol/L (22-30) 04/23/21 16:33 Anion Gap 21 mmol/L 04/23/21 16:33 BUN 44 mg/dL (9-20) H 04/23/21 16:33 Creatinine 8.8 mg/dL (0.8-1.3) H 04/23/21 16:33 Estimated GFR 7 ml/min 04/23/21 16:33 BUN/Creatinine Ratio 5 % 04/23/21 16:33 Glucose 101 mg/dL (75-100) H 04/23/21 16:33 Calcium 8.9 mg/dL (8.4-10.2) 04/23/21 16:33 Total Bilirubin 0.30 mg/dL (0.1-1.2) 04/23/21 16:33 AST 11 units/L (5-40) 04/23/21 16:33 ALT 6 units/L (7-56) L 04/23/21 16:33 Alkaline Phosphatase 54 units/L (35-129) 04/23/21 16:33 Total Creatine Kinase 93 units/L (55-170) 04/23/21 16:33 CK-MB (CK-2) 2.6 ng/mL (0.0-4.0) 04/23/21 16:33 CK-MB (CK-2) Rel Index 2.7 (0-4) 04/23/21 16:33 Troponin T 0.162 ng/mL (0.00-0.029) H* 04/23/21 16:33 NT-Pro-B Natriuret Pep 90786 pg/mL (0-900) H 04/23/21 16:33 Total Protein 7.0 g/dL (6.3-8.2) 04/23/21 16:33 Albumin 3.4 g/dL (3.9-5) L 04/23/21 16:33 Albumin/Globulin Ratio 0.9 % 04/23/21 16:33 Triglycerides 112 mg/dL (2-149) 04/23/21 16:33 Cholesterol 154 mg/dL (50-199) 04/23/21 16:33 LDL Cholesterol Direct 87 mg/dL (50-130) 04/23/21 16:33 HDL Cholesterol 47 mg/dL (40-59) 04/23/21 16:33 Cholesterol/HDL Ratio 3.27 % 04/23/21 16:33 Active Medications - Current Medications Current Medications: Generic Name Dose Route Start Last Admin Trade Name Freq PRN Reason Stop Dose Admin Albuterol 2.5 mg 04/23/21 21:21 Albuterol 2.5 Mg/3 Ml Nebu IH Q6HRT PRN Shortness Of Breath Albuterol/Ipratropium 1 ampul 04/24/21 08:00 04/24/21 08:45 Ipratropium/Albuterol Sulfate 3 Ml Ampul.Neb IH 1 ampul QIDRT DARNELL Administration Atorvastatin Calcium 10 mg 04/23/21 22:00 04/24/21 00:11 Atorvastatin 10 Mg Tab PO 10 mg QHS DARNELL Administration Budesonide 0.5 mg 04/24/21 08:00 04/24/21 08:45 Budesonide 0.5 Mg/2 Ml Nebu IH 0.5 mg Q12HRT DARNELL Administration Cholecalciferol 1,000 unit 04/24/21 10:00 04/24/21 09:26 Cholecalciferol (Vit D3) 1000 Unit (25 Mcg) Tab PO 1,000 unit DAILY DARNELL Administration Clopidogrel Bisulfate 75 mg 04/24/21 10:00 Clopidogrel 75 Mg Tab PO QDAY DARNELL Isosorbide Mononitrate 30 mg 04/23/21 22:00 04/24/21 00:12 Isosorbide Mononitrate Er 60 Mg Tab PO Not Given QDAY [facility] Lanthanum Carbonate 1,000 mg 04/24/21 07:30 04/24/21 08:30 Lanthanum Carbonate 500 Mg Tab PO 1,000 mg BIDAC [facility] Administration Metoprolol Tartrate 50 mg 04/23/21 22:00 04/24/21 09:26 Metoprolol Tartrate 50 Mg Tab PO 50 mg BID [facility] Administration Nitroglycerin 0.4 mg 04/23/21 21:27 Nitroglycerin 0.4 Mg Tab Subl SL .Q5MIN PRN Chest Pain Pantoprazole Sodium 40 mg 04/24/21 07:30 04/24/21 08:34 Pantoprazole 40 Mg Tab PO 40 mg QDAC [facility] Administration Prazosin HCl 5 mg 04/23/21 22:00 04/24/21 00:12 Prazosin 5 Mg Cap PO Not Given Q12HR [facility] Sodium Bicarbonate 650 mg 04/23/21 22:00 04/24/21 09:22 Sodium Bicarbonate 650 Mg Tab PO 650 mg BID [facility] Administration Tiotropium [place] 1 puff 04/24/21 10:00 Tiotropium 18 Mcg Cap Inhalation IH DAILY [facility] Warfarin Sodium 5 mg 04/24/21 17:00 Warfarin 5 Mg Tab PO 1700 [facility]
--- NOTE | 2021-04-24 09:59 | Consultation ---
History of Present Illness - Reason for Consult Consult date: 04/24/21 end stage renal disease - History of Present Illness Mr. Britt is a 80-year-old male w/ ESRD, COPD and coronary artery disease who presented to the ED with worsening shortness of breath. Patient is on hemodialysis MWF and last dialyzed on April 21. He also reports cough x 1 month. Denies fever, chills. Patient noted to have left pleural effusion Past History Past Medical History: CAD, COPD, ESRD, hypertension, hyperlipidemia Past Surgical History: Other (AV access creation) Social history: no significant social history, smoking (Former smoker (x40 years)) Family history: no significant family history Medications and Allergies Allergies Allergy/AdvReac Type Severity Reaction Status Date / Time atorvastatin calcium Allergy Mild Unknown Verified 02/12/21 10:43 [From Lipitor] ciprofloxacin [From Cipro] Allergy Mild Bleeding Verified 09/23/20 12:30 ciprofloxacin HCl Allergy Mild Bleeding Verified 09/23/20 12:30 [From Cipro] simvastatin Allergy Mild Unknown Verified 09/23/20 12:30 Home Medications Medication Instructions Recorded Confirmed Last Taken Type ALBUTEROL NEB's [Proventil 0.083% 2.5 mg IH Q6HRT PRN #50 nebu 09/28/20 04/24/21 Unknown Rx NEBS] AtorvaSTATin 10 mg PO QHS #30 tablet 09/28/20 04/24/21 02/27/21 Rx Budesonide [Pulmicort Respules] 0.5 mg IH Q12HRT #30 nebu 09/28/20 04/24/21 02/27/21 Rx Epoetin Eric 10,000 Unit [Procrit] 10,000 unit IV LIZANDRO PRN vial 09/28/20 04/24/21 02/28/21 12:39 Rx Ipratropium/Albuterol Sulfate 1 ampul IH TIDRT #50 ampul.neb 09/28/20 04/24/21 Unknown Rx [DUONEB *Not for PRN Use*] Sodium Bicarbonate 650 mg PO BID #60 09/28/20 04/24/21 02/28/21 12:37 Rx Tiotropium [Spiriva] 2 puff IH DAILY 30 Days #1 cap 09/28/20 04/24/21 02/27/21 Rx Clopidogrel [Plavix] 75 mg PO QDAY tablet 02/13/21 04/24/21 Unknown Rx Nitroglycerin [Nitrostat] 0.4 mg SL .Q5MIN PRN tablet 02/13/21 04/24/21 02/27/21 Rx Cholecalciferol Vit D3 [Vitamin D3 1,000 unit PO DAILY tablet 03/03/21 04/24/21 Unknown Rx 1,000 UNIT TAB] Lanthanum Carbonate [Fosrenol] 1,000 mg PO BIDAC tab.chew 03/03/21 04/24/21 Unknown Rx Pantoprazole [Protonix TAB] 40 mg PO QDAC tablet 03/03/21 04/24/21 Unknown Rx Prazosin 5 mg PO Q12HR capsule 03/03/21 04/24/21 Unknown Rx Coumadin 0 mg PO DAILY 03/15/21 04/24/21 Unknown History ISOSORBIDE MONOnitrate [Imdur ER] 30 mg PO QDAY #30 tablet 03/16/21 04/24/21 Unknown Rx Metoprolol [Lopressor TAB] 50 mg PO BID #60 tablet 03/16/21 04/24/21 Unknown Rx Active Meds: Active Medications Albuterol (Albuterol 2.5 Mg/3 Ml Nebu) 2.5 mg IH Q6HRT PRN PRN Reason: Shortness Of Breath Albuterol/Ipratropium (Ipratropium/Albuterol Sulfate 3 Ml Ampul.Neb) 1 ampul IH QIDRT [facility] Last Admin: 04/24/21 08:45 Dose: 1 ampul Documented by: Atorvastatin Calcium (Atorvastatin 10 Mg Tab) 10 mg PO QHS [facility] Last Admin: 04/24/21 00:11 Dose: 10 mg Documented by: Budesonide (Budesonide 0.5 Mg/2 Ml Nebu) 0.5 mg IH Q12HRT [facility] Last Admin: 04/24/21 08:45 Dose: 0.5 mg Documented by: Cholecalciferol (Cholecalciferol (Vit D3) 1000 Unit (25 Mcg) Tab) 1,000 unit PO DAILY [facility] Last Admin: 04/24/21 09:26 Dose: 1,000 unit Documented by: Clopidogrel Bisulfate (Clopidogrel 75 Mg Tab) 75 mg PO QDAY [facility] Isosorbide Mononitrate (Isosorbide Mononitrate Er 60 Mg Tab) 30 mg PO QDAY [facility] Last Admin: 04/24/21 09:34 Dose: Not Given Documented by: Lanthanum Carbonate (Lanthanum Carbonate 500 Mg Tab) 1,000 mg PO BIDAC [facility] Last Admin: 04/24/21 08:30 Dose: 1,000 mg Documented by: Metoprolol Tartrate (Metoprolol Tartrate 50 Mg Tab) 50 mg PO BID [facility] Last Admin: 04/24/21 09:26 Dose: 50 mg Documented by: Nitroglycerin (Nitroglycerin 0.4 Mg Tab Subl) 0.4 mg SL .Q5MIN PRN PRN Reason: Chest Pain Pantoprazole Sodium (Pantoprazole 40 Mg Tab) 40 mg PO QDAC [facility] Last Admin: 04/24/21 08:34 Dose: 40 mg Documented by: Prazosin HCl (Prazosin 5 Mg Cap) 5 mg PO Q12HR [facility] Last Admin: 04/24/21 00:12 Dose: Not Given Documented by: Sodium Bicarbonate (Sodium Bicarbonate 650 Mg Tab) 650 mg PO BID [facility] Last Admin: 04/24/21 09:22 Dose: 650 mg Documented by: Tiotropium [place] (Tiotropium 18 Mcg Cap Inhalation) 1 puff IH DAILY [facility] Warfarin Sodium (Warfarin 5 Mg Tab) 5 mg PO 1700 [facility] Review of Systems All systems: negative Exam - Vital Signs Vital signs: Vital Signs Temp Pulse Resp BP Pulse Ox 98.4 F 79 22 142/73 99 04/23/21 15:55 04/23/21 15:55 04/23/21 15:55 04/23/21 15:55 04/23/21 15:55 - General Appearance General appearance: well-developed, well-nourished EENT: ATNC Respiratory: Clear to Ascultation Heart: regular, S1S2 Gastrointestinal: Present: normal Integumentary: no rash, warm and dry Neurologic: no focal deficit, alert and oriented x3 Psychiatric: cooperative Results - Lab Results 04/23/21 16:33 04/23/21 16:33 Most recent lab results Calcium 8.9 mg/dL (8.4-10.2) 04/23/21 16:33 Assessment and Plan Assessment: * End stage renal disease * Pleural effusion * Shortness of breath * CAD; hx of LHC w/ PCI * Atrial fibrillation * Hypertension * Anemia secondary to ESRD * Secondary hyperPTH Plan: * Continue HD MWF and prn * UF as tolerated * Rate control/anticoagulation per cardiology * Epogen TIW prn * Renal diet * Dose mediations for renal function
[2021-04-24] MEDS ORDERED: TIOTROPIUM 18 MCG CAP INHALATION IH SCH (10:00)
[2021-04-24] MEDS ORDERED: SODIUM CHLORIDE 0.9% 100 ML IV PRN (10:08)
--- NOTE | 2021-04-24 10:26 | Procedure Note ---
Date of procedure: 04/24/21 Pre-op diagnosis: left pleural effusioin Post-op diagnosis: same Procedure: US thoracentesis, left Findings: moderate left pleural effusion Anesthesia: local Blood Bank Business Manager: REGINA ORDOÑEZ Estimated blood loss: none Pathology: list (120cc) Specimen disposition: to lab Condition: stable Disposition: floor
[2021-04-24] MEDS: CLOPIDOGREL 75 MG TAB PO SCH (12:10)
--- NOTE | 2021-04-24 12:15 | XRay Report ---
CHEST 1 VIEW INDICATION: left pleural effusion, recent thora. COMPARISON: Yesterday FINDINGS: Support devices: None. Heart: Stable borderline heart size. Lungs/Pleura: Near complete evacuation of the left pleural effusion is demonstrated. The left upper l amy and right lung are clear. No pneumothorax is detected. Additional findings: None. IMPRESSION: No evidence for pneumothorax after left thoracentesis. Signer Name: Edison Hines Jr, MD Signed: 04/24/2021 12:10 PM Workstation Name: [id number]
--- NOTE | 2021-04-24 14:04 | Ultrasound Report ---
Ultrasound-guided thoracentesis HISTORY: Left moderate pleural effusion. COMPARISON: AP chest performed earlier today PROCEDURE: The risks (including but not limited to bleeding, infection, and pneumothorax) and benefi ts were explained to the patient and informed consent was obtained. A time out procedure was perform ed. Ultrasound was used to evaluate the left pleural effusion and locate the optimal site for needle entr y. Once the skin was marked, the procedure site was prepped and draped in the usual sterile fashion and lidocaine was used for local anesthesia. A skin marjorie was made and a 6-Greek thoracentesis anoop ter was placed. The patient was monitored closely throughout the procedure, and a total of 1100 mL o f clear yellow fluid was aspirated. Samples were sent to the lab for further evaluation per the prim vic clinicians orders. The patient tolerated the procedure well with no complications. A post-procedure chest x-ray was imm ediately ordered. IMPRESSION: Successful thoracentesis as above with a total of 1100 mL of clear yellow fluid aspirated . Signer Name: Edison Hines Jr, MD Signed: 04/24/2021 2:00 PM Workstation Name: [id number]
[2021-04-24 14:24] LABS: Total Cells Counted 100 /mm3
[2021-04-24 14:56] LABS: Hepatitis B Surface Antigen Non-Reactive (Negative); Hepatitis C Virus Antibody Non-Reactive (NonReactive)
[2021-04-24] MEDS: WARFARIN 5 MG TAB PO SCH (18:33)
--- NOTE | 2021-04-25 08:07 | Progress Note ---
Assessment and Plan Assessment and plan: -- Acute respiratory failure with hypoxia Current Visit: Yes Status: Acute Secondary to severe left pleural effusion Secondary to fluid overload due to ESRD Treat underlying cause --Non-ST elevation VA type II[due to ESRD] Current Visit: Yes Status: Acute. Nonspecific chronic elevation of troponins Cardiology extensively evaluated in the past Chronic elevation of troponins due to ESRD. Medical management --Pleural effusion, left Current Visit: Yes Status: Acute S/P thoracentesis removal of 1100 mL pleural fluid postprocedure chest x-ray reviewed Follow pleural fluid analysis . --Pleuritic chest pain; Current Visit: Yes Status: Acute Post thoracentesis , advised incentive spirometry Pain medications, cough medicine as needed -- End-stage renal disease on hemodialysis Current Visit: Yes Status: Chronic Nephrology following, hemodialysis today. And HD per schedule --Hyponatremia Current Visit: Yes Status: Acute Significantly improved, sodium today 136 --History of COPD (chronic obstructive pulmonary disease) Current Visit: Yes Status: Chronic Oxygen titrate O2 sats to more than 90% DuoNebs and supportive care as needed --History of coronary artery disease Current Visit: Yes Status: Chronic Continue current cardiac medications isosorbide mononitrate and Plavix --History of atrial fibrillation Current Visit: Yes Status: Chronic Rate controlled , continue metoprolol and Coumadin Monitor INR therapeutic goal between 2 and 3 --Hypertension Current Visit: Yes Status: Chronic Continue antihypertensives and adjust medications --DVT prophylaxis Current Visit: Yes Status: Acute On heparin and GI prophylaxis Closely monitor the patient and adjust the management as needed Plan of care reviewed with the patient and his nurse 04/24/2021; thoracentesis and removal of 1100 mL of pleural fluid Follow fluid analysis, HD per schedule today 04/25/2021; Follow pleural fluid analysis, follow renal recommendations Mild pleuritic chest pain with cough, incentive spirometry, and some cough medicine Possible discharge tomorrow if stable History Interval history: I have seen and examined the patient at the bedside Patient had thoracentesis and removal of 1100 mL pleural fluid Pending fluid analysis Patient also received hemodialysis yesterday Patient complains of mild pleuritic chest pain on coughing Denies shortness of breath or palpitation Vital signs noted Hospitalist Physical - Constitutional Vitals: Temp Pulse Resp BP Pulse Ox 99.2 F 83 18 130/74 99 04/25/21 04:18 04/25/21 04:18 04/25/21 04:18 04/25/21 04:18 04/25/21 04:18 General appearance: Present: no acute distress, well-nourished - EENT Eyes: Present: PERRL, EOM intact - Neck Neck: Present: supple, normal ROM - Respiratory Respiratory effort: normal Respiratory: bilateral: diminished, negative: rales, rhonchi, wheezing - Cardiovascular Rhythm: regular Heart Sounds: Present: S1 & S2 - Extremities Extremities: no ischemia, No edema - Abdominal General gastrointestinal: soft, non-tender, non-distended, normal bowel sounds - Integumentary Integumentary: Present: clear, warm - Psychiatric Psychiatric: appropriate mood/affect, cooperative - Neurologic Neurologic: CNII-XII intact, moves all extremities HEART Score - HEART Score Troponin: Troponin T 0.162 ng/mL (0.00-0.029) H* 04/23/21 16:33 Results - Labs CBC & Chem 7: 04/25/21 11:38 04/25/21 11:38 Labs: Laboratory Last Values WBC 11.8 K/mm3 (4.5-11.0) H 04/23/21 16:33 RBC 3.21 M/mm3 (3.65-5.03) L 04/23/21 16:33 Hgb 9.1 gm/dl (11.8-15.2) L 04/23/21 16:33 Hct 27.6 % (35.5-45.6) L 04/23/21 16:33 MCV 86 fl (84-94) 04/23/21 16:33 MCH 28 pg (28-32) 04/23/21 16:33 MCHC 33 % (32-34) 04/23/21 16:33 RDW 16.3 % (13.2-15.2) H 04/23/21 16:33 Plt Count 195 K/mm3 (140-440) 04/23/21 16:33 Lymph % (Auto) 4.6 % (13.4-35.0) L 04/23/21 16:33 [place] % (Auto) 7.3 % (0.0-7.3) 04/23/21 16:33 Eos % (Auto) 0.5 % (0.0-4.3) 04/23/21 16:33 Baso % (Auto) 0.4 % (0.0-1.8) 04/23/21 16:33 Lymph # (Auto) 0.5 K/mm3 (1.2-5.4) L 04/23/21 16:33 [place] # (Auto) 0.9 K/mm3 (0.0-0.8) H 04/23/21 16:33 Eos # (Auto) 0.1 K/mm3 (0.0-0.4) 04/23/21 16:33 Baso # (Auto) 0.1 K/mm3 (0.0-0.1) 04/23/21 16:33 Seg Neutrophils % 87.2 % (40.0-70.0) H 04/23/21 16:33 Seg Neutrophils # 10.3 K/mm3 (1.8-7.7) H 04/23/21 16:33 PT 19.9 Sec. (12.2-14.9) H 04/23/21 16:33 INR 1.64 (0.87-1.13) H 04/23/21 16:33 Sodium 133 mmol/L (137-145) L 04/23/21 16:33 Potassium 4.8 mmol/L (3.6-5.0) 04/23/21 16:33 Chloride 92.7 mmol/L (98-107) L 04/23/21 16:33 Carbon Dioxide 24 mmol/L (22-30) 04/23/21 16:33 Anion Gap 21 mmol/L 04/23/21 16:33 BUN 44 mg/dL (9-20) H 04/23/21 16:33 Creatinine 8.8 mg/dL (0.8-1.3) H 04/23/21 16:33 Estimated GFR 7 ml/min 04/23/21 16:33 BUN/Creatinine Ratio 5 % 04/23/21 16:33 Glucose 101 mg/dL (75-100) H 04/23/21 16:33 Calcium 8.9 mg/dL (8.4-10.2) 04/23/21 16:33 Total Bilirubin 0.30 mg/dL (0.1-1.2) 04/23/21 16:33 AST 11 units/L (5-40) 04/23/21 16:33 ALT 6 units/L (7-56) L 04/23/21 16:33 Alkaline Phosphatase 54 units/L (35-129) 04/23/21 16:33 Total Creatine Kinase 93 units/L (55-170) 04/23/21 16:33 CK-MB (CK-2) 2.6 ng/mL (0.0-4.0) 04/23/21 16:33 CK-MB (CK-2) Rel Index 2.7 (0-4) 04/23/21 16:33 Troponin T 0.162 ng/mL (0.00-0.029) H* 04/23/21 16:33 NT-Pro-B Natriuret Pep 69828 pg/mL (0-900) H 04/23/21 16:33 Total Protein 7.0 g/dL (6.3-8.2) 04/23/21 16:33 Albumin 3.4 g/dL (3.9-5) L 04/23/21 16:33 Albumin/Globulin Ratio 0.9 % 04/23/21 16:33 Triglycerides 112 mg/dL (2-149) 04/23/21 16:33 Cholesterol 154 mg/dL (50-199) 04/23/21 16:33 LDL Cholesterol Direct 87 mg/dL (50-130) 04/23/21 16:33 HDL Cholesterol 47 mg/dL (40-59) 04/23/21 16:33 Cholesterol/HDL Ratio 3.27 % 04/23/21 16:33 Fluid Type Pleural 04/24/21 10:31 Fluid Color Yellow 04/24/21 10:31 Fluid Appearance Hazy 04/24/21 10:31 Fluid WBC 111 /mm3 04/24/21 10:31 Fluid RBC 3900 /mm3 04/24/21 10:31 Fluid Seg Neutrophils 59.0 % 04/24/21 10:31 Fluid Lymphocytes 10.0 % 04/24/21 10:31 Fluid Reactive Lymphs Not Reportable 04/24/21 10:31 Fluid Monocytes 27.0 % 04/24/21 10:31 Fluid Eosinophils 4.0 % 04/24/21 10:31 Fluid Basophils Not Reportable 04/24/21 10:31 Hepatitis A IgM Ab Non-reactive (NonReactive) 04/24/21 13:34 Hep Bs Antigen Non-reactive (Negative) 04/24/21 13:34 Hep B Core IgM Ab Non-reactive (NonReactive) 04/24/21 13:34 Hepatitis C Antibody Non-reactive (NonReactive) 04/24/21 13:34 Active Medications - Current Medications Current Medications: Generic Name Dose Route Start Last Admin Trade Name Freq PRN Reason Stop Dose Admin Albuterol 2.5 mg 04/23/21 21:21 Albuterol 2.5 Mg/3 Ml Nebu IH Q6HRT PRN Shortness Of Breath Albuterol/Ipratropium 1 ampul 04/24/21 08:00 04/24/21 20:23 Ipratropium/Albuterol Sulfate 3 Ml Ampul.Neb IH 1 ampul QIDRT DARNELL Administration Atorvastatin Calcium 10 mg 04/23/21 22:00 04/25/21 06:23 Atorvastatin 10 Mg Tab PO Not Given QHS DARNELL Budesonide 0.5 mg 04/24/21 08:00 04/24/21 20:23 Budesonide 0.5 Mg/2 Ml Nebu IH 0.5 mg Q12HRT DARNELL Administration Cholecalciferol 1,000 unit 04/24/21 10:00 04/24/21 09:26 Cholecalciferol (Vit D3) 1000 Unit (25 Mcg) Tab PO 1,000 unit DAILY DARNELL Administration Clopidogrel Bisulfate 75 mg 04/24/21 10:00 04/24/21 12:10 Clopidogrel 75 Mg Tab PO 75 mg QDAY [facility] Administration Sodium Chloride 100 mls @ 999 mls/hr 04/24/21 10:08 Nacl 0.9% IV LIZANDRO PRN Hypotension Isosorbide Mononitrate 30 mg 04/23/21 22:00 04/24/21 09:34 Isosorbide Mononitrate Er 60 Mg Tab PO Not Given QDAY [facility] Lanthanum Carbonate 1,000 mg 04/24/21 07:30 04/24/21 18:37 Lanthanum Carbonate 500 Mg Tab PO 1,000 mg BIDAC [facility] Administration Metoprolol Tartrate 50 mg 04/23/21 22:00 04/24/21 21:30 Metoprolol Tartrate 50 Mg Tab PO 50 mg BID [facility]LL Administration Nitroglycerin 0.4 mg 04/23/21 21:27 Nitroglycerin 0.4 Mg Tab Subl SL .Q5MIN PRN Chest Pain Pantoprazole Sodium 40 mg 04/24/21 07:30 04/24/21 08:34 Pantoprazole 40 Mg Tab PO 40 mg QDAC [facility] Administration Prazosin HCl 5 mg 04/23/21 22:00 04/24/21 21:30 Prazosin 5 Mg Cap PO Not Given Q12HR DARNELL Sodium Bicarbonate 650 mg 04/23/21 22:00 04/24/21 21:30 Sodium Bicarbonate 650 Mg Tab PO 650 mg BID DARNELL Administration Warfarin Sodium 5 mg 04/24/21 17:00 04/24/21 18:33 Warfarin 5 Mg Tab PO 5 mg 1700 DARNELL Administration Nutrition/Malnutrition Assess - Dietary Evaluation Nutrition/Malnutrition Findings: Nutrition Notes Start: 04/24/21 11:08 Freq: Status: Active Protocol: Document 04/24/21 11:08 DARA (Rec: 04/24/21 11:09 DARA [email or web address]) Nutrition Notes Need for Assessment generated from: Education Initial or Follow up Brief Note Pertinent Medications Coumadin Subjective/Other Information Pt screened for coumadin use. Unable to reach pt via phone. Nutrition Intervention Follow-Up By: 04/25/21 Additional Comments F/U: Need for DNI education
[2021-04-25] MEDS: LANTHANUM CARBONATE 500 MG TAB PO SCH ×2 (08:17→16:32)
[2021-04-25] MEDS: PANTOPRAZOLE 40 MG TAB PO SCH (08:17)
[2021-04-25] MEDS: BUDESONIDE 0.5 MG/2 ML NEBU IH SCH ×2 (09:16→19:36)
[2021-04-25] MEDS: IPRATROPIUM/ALBUTEROL SULFATE 3 ML AMPUL.NEB IH SCH ×4 (09:16→19:36)
[2021-04-25] MEDS: METOPROLOL TARTRATE 50 MG TAB PO SCH ×2 (09:34→21:25)
[2021-04-25] MEDS: CHOLECALCIFEROL (VIT D3) 1000 UNIT (25 mcg) TAB PO SCH (09:34)
[2021-04-25] MEDS: CLOPIDOGREL 75 MG TAB PO SCH (09:34)
[2021-04-25] MEDS: SODIUM BICARBONATE 650 MG TAB PO SCH ×2 (09:34→21:25)
[2021-04-25] MEDS: PRAZOSIN 5 MG CAP PO SCH ×2 (09:39→21:26)
--- NOTE | 2021-04-25 09:41 | Consultation ---
History of Present Illness - Reason for Consult Consult date: 04/25/21 end stage renal disease - History of Present Illness Mr. Britt is a 80-year-old male w/ ESRD, COPD and coronary artery disease who presented to the ED with worsening shortness of breath. Patient is on hemodialysis MWF and last dialyzed on Saturday, April 21. He also reports cough x 1 month. Denies fever, chills. Patient noted to have left pleural effusion. He is s/p thoracentesis yesterday. Past History Past Medical History: CAD, COPD, ESRD, hypertension, hyperlipidemia Past Surgical History: Other (AV access creation) Social history: no significant social history, smoking (Former smoker (x40 years)) Family history: no significant family history Medications and Allergies Allergies Allergy/AdvReac Type Severity Reaction Status Date / Time atorvastatin calcium Allergy Mild Unknown Verified 02/12/21 10:43 [From Lipitor] ciprofloxacin [From Cipro] Allergy Mild Bleeding Verified 09/23/20 12:30 ciprofloxacin HCl Allergy Mild Bleeding Verified 09/23/20 12:30 [From Cipro] simvastatin Allergy Mild Unknown Verified 09/23/20 12:30 Home Medications Medication Instructions Recorded Confirmed Last Taken Type ALBUTEROL NEB's [Proventil 0.083% 2.5 mg IH Q6HRT PRN #50 nebu 09/28/20 04/25/21 04/23/21 Rx NEBS] AtorvaSTATin 10 mg PO QHS #30 tablet 09/28/20 04/25/21 04/22/21 Rx Budesonide [Pulmicort Respules] 0.5 mg IH Q12HRT #30 nebu 09/28/20 04/25/21 04/22/21 Rx Epoetin Eric 10,000 Unit [Procrit] 10,000 unit IV LIZANDRO PRN vial 09/28/20 04/24/21 02/28/21 12:39 Rx Ipratropium/Albuterol Sulfate 1 ampul IH TIDRT #50 ampul.neb 09/28/20 04/25/21 04/22/21 Rx [DUONEB *Not for PRN Use*] Sodium Bicarbonate 650 mg PO BID #60 09/28/20 04/25/21 04/23/21 Rx Tiotropium [Spiriva] 2 puff IH DAILY 30 Days #1 cap 1104/25/21 04/23/21 Rx Clopidogrel [Plavix] 75 mg PO QDAY tablet 02/13/21 04/25/21 04/22/21 Rx Cholecalciferol Vit D3 [Vitamin D3 1,000 unit PO DAILY tablet 03/03/21 04/25/21 04/23/21 Rx 1,000 UNIT TAB] Lanthanum Carbonate [Fosrenol] 1,000 mg PO BIDAC tab.chew 03/03/21 04/25/21 04/23/21 Rx Pantoprazole [Protonix TAB] 40 mg PO QDAC tablet 03/03/21 04/25/21 04/23/21 Rx Coumadin 0 mg PO DAILY 03/15/21 04/25/21 04/22/21 History Metoprolol [Lopressor TAB] 50 mg PO BID #60 tablet 03/16/21 04/25/21 04/23/21 Rx Active Meds: Active Medications Albuterol (Albuterol 2.5 Mg/3 Ml Nebu) 2.5 mg IH Q6HRT PRN PRN Reason: Shortness Of Breath Albuterol/Ipratropium (Ipratropium/Albuterol Sulfate 3 Ml Ampul.Neb) 1 ampul IH QIDRT [facility] Last Admin: 04/25/21 09:16 Dose: 1 ampul Documented by: Atorvastatin Calcium (Atorvastatin 10 Mg Tab) 10 mg PO QHS [facility] Last Admin: 04/25/21 06:23 Dose: Not Given Documented by: Budesonide (Budesonide 0.5 Mg/2 Ml Nebu) 0.5 mg IH Q12HRT [facility] Last Admin: 04/25/21 09:16 Dose: 0.5 mg Documented by: Cholecalciferol (Cholecalciferol (Vit D3) 1000 Unit (25 Mcg) Tab) 1,000 unit PO DAILY [facility] Last Admin: 04/25/21 09:34 Dose: 1,000 unit Documented by: Clopidogrel Bisulfate (Clopidogrel 75 Mg Tab) 75 mg PO QDAY [facility] Last Admin: 04/25/21 09:34 Dose: 75 mg Documented by: Sodium Chloride (Nacl 0.9%) 100 mls @ 999 mls/hr IV LIZANDRO PRN PRN Reason: Hypotension Isosorbide Mononitrate (Isosorbide Mononitrate Er 60 Mg Tab) 30 mg PO QDAY [facility] Last Admin: 04/25/21 09:39 Dose: Not Given Documented by: Lanthanum Carbonate (Lanthanum Carbonate 500 Mg Tab) 1,000 mg PO BIDAC [facility] Last Admin: 04/25/21 08:17 Dose: 1,000 mg Documented by: Metoprolol Tartrate (Metoprolol Tartrate 50 Mg Tab) 50 mg PO BID [facility] Last Admin: 04/25/21 09:34 Dose: 50 mg Documented by: Nitroglycerin (Nitroglycerin 0.4 Mg Tab Subl) 0.4 mg SL .Q5MIN PRN PRN Reason: Chest Pain Pantoprazole Sodium (Pantoprazole 40 Mg Tab) 40 mg PO QDAC [facility] Last Admin: 04/25/21 08:17 Dose: 40 mg Documented by: Prazosin HCl (Prazosin 5 Mg Cap) 5 mg PO Q12HR [facility] Last Admin: 04/25/21 09:39 Dose: Not Given Documented by: Sodium Bicarbonate (Sodium Bicarbonate 650 Mg Tab) 650 mg PO BID [facility] Last Admin: 04/25/21 09:34 Dose: 650 mg Documented by: Warfarin Sodium (Warfarin 5 Mg Tab) 5 mg PO 1700 [facility] Last Admin: 04/24/21 18:33 Dose: 5 mg Documented by: Review of Systems All systems: negative Exam - Vital Signs Vital signs: Vital Signs Temp Pulse Resp BP Pulse Ox 98.4 F 79 22 142/73 99 04/23/21 15:55 04/23/21 15:55 04/23/21 15:55 04/23/21 15:55 04/23/21 15:55 - General Appearance General appearance: well-developed, well-nourished EENT: ATNC Respiratory: Clear to Ascultation Heart: regular, S1S2 Gastrointestinal: Present: normal. Absent: tenderness, distended Integumentary: no rash, warm and dry Neurologic: no focal deficit, alert and oriented x3 Psychiatric: cooperative Results - Lab Results 04/23/21 16:33 04/23/21 16:33 Most recent lab results Calcium 8.9 mg/dL (8.4-10.2) 04/23/21 16:33 Assessment and Plan Assessment: * End stage renal disease * Pleural effusion s/p thoracentesis * Shortness of breath * CAD; hx of LHC w/ PCI * Atrial fibrillation * Hypertension * Anemia secondary to ESRD * Secondary hyperPTH Plan: * Patient is s/p HD yesterday. No acute indication for HD today * Continue HD MWF and prn * UF as tolerated * Rate control/anticoagulation per cardiology * Epogen TIW prn * Renal diet * Dose mediations for renal function
--- NOTE | 2021-04-25 09:43 | Event Note ---
Date: 04/24/21 Attempted to see patient. He is off the floor for thoracentesis. HD orders entered
[2021-04-25 12:39] LABS: Basophils % (Auto) 0.4 % (0.0-1.8); Eosinophils # (Auto) 0.1 K/mm3 (0.0-0.4); Eosinophils % (Auto) 1.7 % (0.0-4.3); Hematocrit 26.6 % (35.5-45.6); Hemoglobin 8.9 gm/dl (11.8-15.2); Lymphocytes # (Auto) 0.3 K/mm3 (1.2-5.4); Lymphocytes % (Auto) 5.8 % (13.4-35.0); Mean Corpuscular HGB Conc 34 % (32-34); Mean Corpuscular Volume 85 fl (84-94); Monocytes # (Auto) 0.7 K/mm3 (0.0-0.8); Monocytes % (Auto) 10.8 % (0.0-7.3); Platelet Count 193 K/mm3 (140-440); Red Blood Count 3.12 M/mm3 (3.65-5.03); Red Cell Distribution Width 16.5 % (13.2-15.2)
[2021-04-25 12:47] LABS: INR 1.91 (0.87-1.13)
[2021-04-25 13:15] LABS: Calcium 8.9 mg/dL (8.4-10.2)
[2021-04-25] MEDS: WARFARIN 5 MG TAB PO SCH (16:32)
[2021-04-25] MEDS ORDERED: oxyCODONE /ACETAMINOPHEN 5-325MG TAB PO PRN (17:00)
[2021-04-25] MEDS ORDERED: guaiFENesin DM 200/20 MG ORAL LIQD 10 ML PO PRN (17:00)
[2021-04-26] MEDS: LANTHANUM CARBONATE 500 MG TAB PO SCH ×2 (07:30→16:38)
[2021-04-26] MEDS: IPRATROPIUM/ALBUTEROL SULFATE 3 ML AMPUL.NEB IH SCH ×2 (07:45→14:44)
[2021-04-26] MEDS: BUDESONIDE 0.5 MG/2 ML NEBU IH SCH (07:45)
[2021-04-26 08:21] LABS: INR 1.9 (0.87-1.13)
--- NOTE | 2021-04-26 09:15 | Progress Note ---
Assessment and Plan Assessment: * End stage renal disease * Pleural effusion s/p thoracentesis * Shortness of breath * CAD; hx of LHC w/ PCI * Atrial fibrillation * Hypertension * Anemia secondary to ESRD * Secondary hyperPTH Plan: * HD today * Continue HD MWF and prn * UF as tolerated * Rate control/anticoagulation per cardiology * Epogen TIW prn * Renal diet * Dose mediations for renal function Subjective Date of service: 04/26/21 Objective - Vital Signs Vital signs: Vital Signs - 12hr 04/26/21 04/26/21 04/26/21 04:13 07:45 08:13 Temperature 98.7 F Pulse Rate 98 H Pulse Rate [ 90 Bilateral] Respiratory 20 Rate Respiratory 18 Rate [Bilateral ] Blood Pressure 131/82 O2 Sat by Pulse 97 100 Oximetry - Lab 04/25/21 11:38 04/25/21 11:38 Most recent lab results Calcium 8.9 mg/dL (8.4-10.2) 04/25/21 11:38 Medications & Allergies - Medications Allergies/Adverse Reactions: Allergies atorvastatin calcium [From Lipitor] Allergy (Mild, Verified 02/12/21 10:43) Unknown ACHES, RASH ciprofloxacin [From Cipro] Allergy (Mild, Verified 09/23/20 12:30) Bleeding NOSE BLEED ciprofloxacin HCl [From Cipro] Allergy (Mild, Verified 09/23/20 12:30) Bleeding NOSE BLEED simvastatin Allergy (Mild, Verified 09/23/20 12:30) Unknown ACHES Home Medications: Home Medications Medication Instructions Recorded Confirmed Last Taken Type ALBUTEROL NEB's [Proventil 0.083% 2.5 mg IH Q6HRT PRN #50 nebu 09/28/20 04/25/21 04/23/21 Rx NEBS] AtorvaSTATin 10 mg PO QHS #30 tablet 09/28/20 04/25/21 04/22/21 Rx Budesonide [Pulmicort Respules] 0.5 mg IH Q12HRT #30 nebu 09/28/20 04/25/21 04/22/21 Rx Epoetin Eric 10,000 Unit [Procrit] 10,000 unit IV LIZANDRO PRN vial 09/28/20 04/24/21 02/28/21 12:39 Rx Ipratropium/Albuterol Sulfate 1 ampul IH TIDRT #50 ampul.neb 09/28/20 04/25/21 04/22/21 Rx [DUONEB *Not for PRN Use*] Sodium Bicarbonate 650 mg PO BID #60 09/28/20 04/25/21 04/23/21 Rx Tiotropium [Spiriva] 2 puff IH DAILY 30 Days #1 cap 09/28/20 04/25/21 04/23/21 Rx Clopidogrel [Plavix] 75 mg PO QDAY tablet 02/13/21 04/25/21 04/22/21 Rx Cholecalciferol Vit D3 [Vitamin D3 1,000 unit PO DAILY tablet 03/03/21 04/25/21 04/23/21 Rx 1,000 UNIT TAB] Lanthanum Carbonate [Fosrenol] 1,000 mg PO BIDAC tab.chew 03/03/21 04/25/21 Rx Pantoprazole [Protonix TAB] 40 mg PO QDAC tablet 03/03/21 04/25/21 04/23/21 Rx Coumadin 0 mg PO DAILY 03/15/21 04/25/21 04/22/21 History Metoprolol [Lopressor TAB] 50 mg PO BID #60 tablet 03/16/21 04/25/21 04/23/21 Rx Active Medications: Generic Name Dose Route Start Last Admin Trade Name Freq PRN Reason Stop Dose Admin Albuterol 2.5 mg 04/23/21 21:21 Albuterol 2.5 Mg/3 Ml Nebu IH Q6HRT PRN Shortness Of Breath Albuterol/Ipratropium 1 ampul 04/26/21 08:00 04/26/21 07:45 Ipratropium/Albuterol Sulfate 3 Ml Ampul.Neb IH 1 ampul TIDRT DARNELL Administration Atorvastatin Calcium 10 mg 04/23/21 22:00 04/25/21 21:26 Atorvastatin 10 Mg Tab PO Not Given QHS DARNELL Budesonide 0.5 mg 04/24/21 08:00 04/26/21 07:45 Budesonide 0.5 Mg/2 Ml Nebu IH 0.5 mg Q12HRT DARNELL Administration Cholecalciferol 1,000 unit 04/24/21 10:00 04/25/21 09:34 Cholecalciferol (Vit D3) 1000 Unit (25 Mcg) Tab PO 1,000 unit DAILY DARNELL Administration Clopidogrel Bisulfate 75 mg 04/24/21 10:00 04/25/21 09:34 Clopidogrel 75 Mg Tab PO 75 mg QDAY DARNELL Administration Guaifenesin 10 ml 04/25/21 17:00 Guaifenesin Dm 200/20 Mg Oral Liqd 10 Ml PO Q4H PRN Cough Sodium Chloride 100 mls @ 999 mls/hr 04/24/21 10:08 Nacl 0.9% IV LIZANDRO PRN Hypotension Isosorbide Mononitrate 30 mg 04/23/21 22:00 04/25/21 09:39 Isosorbide Mononitrate Er 60 Mg Tab PO Not Given QDAY DARNELL Lanthanum Carbonate 1,000 mg 04/24/21 07:30 04/25/21 16:32 Lanthanum Carbonate 500 Mg Tab PO 1,000 mg BIDAC DARNELL Administration Metoprolol Tartrate 50 mg 04/23/21 22:00 04/25/21 21:25 Metoprolol Tartrate 50 Mg Tab PO 50 mg BID DARNELL Administration Nitroglycerin 0.4 mg 04/23/21 21:27 Nitroglycerin 0.4 Mg Tab Subl SL .Q5MIN PRN Chest Pain Oxycodone/Acetaminophen 1 tab 04/25/21 17:00 Oxycodone /Acetaminophen 5-325mg Tab PO Q6H PRN Pain, Moderate (4-6) Pantoprazole Sodium 40 mg 04/24/21 07:30 04/25/21 08:17 Pantoprazole 40 Mg Tab PO 40 mg QDAC DARNELL Administration Prazosin HCl 5 mg 04/23/21 22:00 04/25/21 21:26 Prazosin 5 Mg Cap PO Not Given Q12HR DARNELL Sodium Bicarbonate 650 mg 04/23/21 22:00 04/25/21 21:25 Sodium Bicarbonate 650 Mg Tab PO 650 mg BID DARNELL Administration Warfarin Sodium 5 mg 04/24/21 17:00 04/25/21 16:32 Warfarin 5 Mg Tab PO 5 mg 1700 DARNELL Administration
[2021-04-26] MEDS: PANTOPRAZOLE 40 MG TAB PO SCH (09:57)
[2021-04-26] MEDS: CHOLECALCIFEROL (VIT D3) 1000 UNIT (25 mcg) TAB PO SCH (09:57)
[2021-04-26] MEDS: CLOPIDOGREL 75 MG TAB PO SCH (09:58)
[2021-04-26] MEDS: SODIUM BICARBONATE 650 MG TAB PO SCH (09:58)
[2021-04-26] MEDS: METOPROLOL TARTRATE 50 MG TAB PO SCH (09:59)
[2021-04-26] MEDS: PRAZOSIN 5 MG CAP PO SCH (10:00)
--- NOTE | 2021-04-26 11:57 | Progress Note ---
Assessment and Plan Assessment and plan: -- Acute respiratory failure with hypoxia Current Visit: Yes Status: Acute Secondary to severe left pleural effusion Secondary to fluid overload due to ESRD Treat underlying cause --Non-ST elevation [place] type II[due to ESRD] Current Visit: Yes Status: Acute. Nonspecific chronic elevation of troponins Cardiology extensively evaluated in the past Chronic elevation of troponins due to ESRD. Medical management --Pleural effusion, left Current Visit: Yes Status: Acute S/P thoracentesis removal of 1100 mL pleural fluid postprocedure chest x-ray reviewed Follow pleural fluid analysis . --Pleuritic chest pain; Current Visit: Yes Status: Acute Post thoracentesis , advised incentive spirometry Pain medications, cough medicine as needed -- End-stage renal disease on hemodialysis Current Visit: Yes Status: Chronic Nephrology following, hemodialysis today. And HD per schedule --Hyponatremia Current Visit: Yes Status: Acute Significantly improved, sodium today 136 --History of COPD (chronic obstructive pulmonary disease) Current Visit: Yes Status: Chronic Oxygen titrate O2 sats to more than 90% DuoNebs and supportive care as needed --History of coronary artery disease Current Visit: Yes Status: Chronic Continue current cardiac medications isosorbide mononitrate and Plavix --History of atrial fibrillation Current Visit: Yes Status: Chronic Rate controlled , continue metoprolol and Coumadin Monitor INR therapeutic goal between 2 and 3 --Hypertension Current Visit: Yes Status: Chronic Continue antihypertensives and adjust medications --DVT prophylaxis Current Visit: Yes Status: Acute On heparin and GI prophylaxis Closely monitor the patient and adjust the management as needed Plan of care reviewed with the patient and his nurse 04/24/2021; thoracentesis and removal of 1100 mL of pleural fluid Follow fluid analysis, HD per schedule today 04/25/2021; Follow pleural fluid analysis, follow renal recommendations Mild pleuritic chest pain with cough, incentive spirometry, and some cough medicine Possible discharge tomorrow if stable Hospitalist Physical - Constitutional Vitals: Temp Pulse Resp BP Pulse Ox 98 F 82 18 100/53 98 04/26/21 11:04 04/26/21 11:45 04/26/21 11:04 04/26/21 11:45 04/26/21 10:04 General appearance: Present: no acute distress, well-nourished HEART Score - HEART Score Troponin: Troponin T 0.147 ng/mL (0.00-0.029) H* 04/25/21 11:38 Results - Labs CBC & Chem 7: 04/25/21 11:38 04/25/21 11:38 Labs: Laboratory Last Values WBC 6.0 K/mm3 (4.5-11.0) 04/25/21 11:38 RBC 3.12 M/mm3 (3.65-5.03) L 04/25/21 11:38 Hgb 8.9 gm/dl (11.8-15.2) L 04/25/21 11:38 Hct 26.6 % (35.5-45.6) L 04/25/21 11:38 MCV 85 fl (84-94) 04/25/21 11:38 MCH 29 pg (28-32) 04/25/21 11:38 MCHC 34 % (32-34) 04/25/21 11:38 RDW 16.5 % (13.2-15.2) H 04/25/21 11:38 Plt Count 193 K/mm3 (140-440) 04/25/21 11:38 Lymph % (Auto) 5.8 % (13.4-35.0) L 04/25/21 11:38 Ross % (Auto) 10.8 % (0.0-7.3) H 04/25/21 11:38 Eos % (Auto) 1.7 % (0.0-4.3) 04/25/21 11:38 Baso % (Auto) 0.4 % (0.0-1.8) 04/25/21 11:38 Lymph # (Auto) 0.3 K/mm3 (1.2-5.4) L 04/25/21 11:38 Ross # (Auto) 0.7 K/mm3 (0.0-0.8) 04/25/21 11:38 Eos # (Auto) 0.1 K/mm3 (0.0-0.4) 04/25/21 11:38 Baso # (Auto) 0.0 K/mm3 (0.0-0.1) 04/25/21 11:38 Seg Neutrophils % 81.3 % (40.0-70.0) H 04/25/21 11:38 Seg Neutrophils # 4.9 K/mm3 (1.8-7.7) 04/25/21 11:38 PT 22.2 Sec. (12.2-14.9) H 04/26/21 06:47 INR 1.90 (0.87-1.13) H 04/26/21 06:47 Sodium 136 mmol/L (137-145) L 04/25/21 11:38 Potassium 4.0 mmol/L (3.6-5.0) 04/25/21 11:38 Chloride 93.8 mmol/L (98-107) L 04/25/21 11:38 Carbon Dioxide 29 mmol/L (22-30) 04/25/21 11:38 Anion Gap 17 mmol/L 04/25/21 11:38 BUN 33 mg/dL (9-20) H 04/25/21 11:38 Creatinine 6.9 mg/dL (0.8-1.3) H 04/25/21 11:38 Estimated GFR 9 ml/min 04/25/21 11:38 BUN/Creatinine Ratio 5 % 04/25/21 11:38 Glucose 128 mg/dL (75-100) H 04/25/21 11:38 Calcium 8.9 mg/dL (8.4-10.2) 04/25/21 11:38 Total Bilirubin 0.30 mg/dL (0.1-1.2) 04/23/21 16:33 AST 11 units/L (5-40) 04/23/21 16:33 ALT 6 units/L (7-56) L 04/23/21 16:33 Alkaline Phosphatase 54 units/L (35-129) 04/23/21 16:33 Total Creatine Kinase 93 units/L (55-170) 04/23/21 16:33 CK-MB (CK-2) 2.6 ng/mL (0.0-4.0) 04/23/21 16:33 CK-MB (CK-2) Rel Index 2.7 (0-4) 04/23/21 16:33 Troponin T 0.147 ng/mL (0.00-0.029) H* 04/25/21 11:38 NT-Pro-B Natriuret Pep 48646 pg/mL (0-900) H 04/23/21 16:33 Total Protein 7.0 g/dL (6.3-8.2) 04/23/21 16:33 Albumin 3.4 g/dL (3.9-5) L 04/23/21 16:33 Albumin/Globulin Ratio 0.9 % 04/23/21 16:33 Triglycerides 112 mg/dL (2-149) 04/23/21 16:33 Cholesterol 154 mg/dL (50-199) 04/23/21 16:33 LDL Cholesterol Direct 87 mg/dL (50-130) 04/23/21 16:33 HDL Cholesterol 47 mg/dL (40-59) 04/23/21 16:33 Cholesterol/HDL Ratio 3.27 % 04/23/21 16:33 Fluid Type Pleural 04/24/21 10:31 Fluid Color Yellow 04/24/21 10:31 Fluid Appearance Hazy 04/24/21 10:31 Fluid WBC 111 /mm3 04/24/21 10:31 Fluid RBC 3900 /mm3 04/24/21 10:31 Fluid Seg Neutrophils 59.0 % 04/24/21 10:31 Fluid Lymphocytes 10.0 % 04/24/21 10:31 Fluid Reactive Lymphs Not Reportable 04/24/21 10:31 Fluid Monocytes 27.0 % 04/24/21 10:31 Fluid Eosinophils 4.0 % 04/24/21 10:31 Fluid Basophils Not Reportable 04/24/21 10:31 Hepatitis A IgM Ab Non-reactive (NonReactive) 04/24/21 13:34 Hep Bs Antigen Non-reactive (Negative) 04/24/21 13:34 Hep B Core IgM Ab Non-reactive (NonReactive) 04/24/21 13:34 Hepatitis C Antibody Non-reactive (NonReactive) 04/24/21 13:34 Calvert/IV: Voiding Method Toilet Active Medications - Current Medications Current Medications: Generic Name Dose Route Start Last Admin Trade Name Freq PRN Reason Stop Dose Admin Albuterol 2.5 mg 04/23/21 21:21 Albuterol 2.5 Mg/3 Ml Nebu IH Q6HRT PRN Shortness Of Breath Albuterol/Ipratropium 1 ampul 04/26/21 08:00 04/26/21 07:45 Ipratropium/Albuterol Sulfate 3 Ml Ampul.Neb IH 1 ampul TIDRT DARNELL Administration Atorvastatin Calcium 10 mg 04/23/21 22:00 04/25/21 21:26 Atorvastatin 10 Mg Tab PO Not Given QHS DARNELL Budesonide 0.5 mg 04/24/21 08:00 04/26/21 07:45 Budesonide 0.5 Mg/2 Ml Nebu IH 0.5 mg Q12HRT DARNELL Administration Cholecalciferol 1,000 unit 04/24/21 10:00 04/26/21 09:57 Cholecalciferol (Vit D3) 1000 Unit (25 Mcg) Tab PO 1,000 unit DAILY DARNELL Administration Clopidogrel Bisulfate 75 mg 04/24/21 10:00 04/26/21 09:58 Clopidogrel 75 Mg Tab PO 75 mg QDAY DARNELL Administration Guaifenesin 10 ml 04/25/21 17:00 04/26/21 10:03 Guaifenesin Dm 200/20 Mg Oral Liqd 10 Ml PO 10 ml Q4H PRN Administration Cough Sodium Chloride 100 mls @ 999 mls/hr 04/24/21 10:08 Nacl 0.9% IV LIZANDRO PRN Hypotension Isosorbide Mononitrate 30 mg 04/23/21 22:00 04/26/21 09:59 Isosorbide Mononitrate Er 60 Mg Tab PO Not Given QDAY DARNELL Lanthanum Carbonate 1,000 mg 04/24/21 07:30 04/25/21 16:32 Lanthanum Carbonate 500 Mg Tab PO 1,000 mg BIDAC [facility] Administration Metoprolol Tartrate 50 mg 04/23/21 22:00 04/26/21 09:59 Metoprolol Tartrate 50 Mg Tab PO Not Given BID DARNELL Nitroglycerin 0.4 mg 04/23/21 21:27 Nitroglycerin 0.4 Mg Tab Subl SL .Q5MIN PRN Chest Pain Oxycodone/Acetaminophen 1 tab 04/25/21 17:00 Oxycodone /Acetaminophen 5-325mg Tab PO Q6H PRN Pain, Moderate (4-6) Pantoprazole Sodium 40 mg 04/24/21 07:30 04/26/21 09:57 Pantoprazole 40 Mg Tab PO 40 mg QDAC [facility] Administration Prazosin HCl 5 mg 04/23/21 22:00 04/25/21 21:26 Prazosin 5 Mg Cap PO Not Given Q12HR DARNELL Sodium Bicarbonate 650 mg 04/23/21 22:00 04/26/21 09:58 Sodium Bicarbonate 650 Mg Tab PO 650 mg BID [facility] Administration Warfarin Sodium 5 mg 04/24/21 17:00 04/25/21 16:32 Warfarin 5 Mg Tab PO 5 mg 1700 DARNELL Administration Nutrition/Malnutrition Assess - Dietary Evaluation Nutrition/Malnutrition Findings: Nutrition Notes Start: 04/24/21 11:08 Freq: Status: Active Protocol: Document 04/25/21 11:56 (Rec: 04/25/21 11:57 MK [id number]) Nutrition Notes Need for Assessment generated from: Education Initial or Follow up Brief Note Pertinent Medications Coumadin Subjective/Other Information FU for coumadin education. Pt reports being on it for 1 year and understanding the vitamin K interaction. Pt denied further education and accepted the handout. Nutrition Intervention Revisit per MD consult or patient Sign Off request:
--- NOTE | 2021-04-26 16:11 | Discharge Summary ---
Providers - Providers Date of Admission: 04/23/21 22:45 Date of discharge: 04/26/21 Attending physician: SWEETIE IBARRA 04/24/21 09:36 Consult to Physician [CONS] Routine Comment: Consulting Provider: AMERICA MILTON Physician Instructions: Reason For Exam: ESRD on hemodialysis Primary care physician: REPAIR ARMATURE WINDER Hospitalization Reason for admission: Worsening shortness of breath 2 days Condition: Stable Pertinent studies: Chest x-ray Thoracentesis follow-up chest x-ray Procedures: S/P thoracentesis removal of 1100 mL pleural fluid Hospital course: 80-year-old male patient with significant past medical history of end-stage renal disease on hemodialysis COPD coronary artery disease dyslipidemia GERD and hypertension was admitted through emergency room with worsening shortness of breath, claims compliance with medications and dialysis Initial evaluation is consistent with fluid overload pleural effusion, admitted to the hospital symptomatically managed evaluated by senior data quality analyst Patient subsequently underwent ultrasound-guided thoracentesis and removal of 1100 mL pleural fluid. Pleural fluid analysis negative Patient symptoms slowly but significantly improved . Today is comfortable no new complaints vital signs stable Physical examination prior to discharge is unremarkable Cleared by consultants stable at discharge Discharge diagnosis -- Acute respiratory failure with hypoxia Secondary to severe left pleural effusion Secondary to fluid overload due to ESRD Received dialysis and thoracentesis and removal of 1100 mL --Non-ST elevation [place] type II[due to ESRD] type II, conservative management --Pleural effusion, left S/P thoracentesis removal of 1100 mL pleural fluid postprocedure chest x-ray reviewed,pleural fluid analysis Negative --Pleuritic chest pain; advised incentive spirometry Pain medications, cough medicine as needed -- End-stage renal disease on hemodialysis And HD per schedule --Hyponatremia Significantly improved, sodium today 136 --History of COPD (chronic obstructive pulmonary disease) DuoNebs and supportive care as needed --History of coronary artery disease Continue current cardiac medications isosorbide mononitrate and Plavix --History of atrial fibrillation Rate controlled , continue metoprolol and Coumadin Monitor INR therapeutic goal between 2 and 3 --Hypertension Continue antihypertensives and adjust medicatio Cleared by consultants, stable at discharge Disposition: [id number] HOME [facility] Final Discharge Diagnosis (Prints w/discharge instructions): Acute respiratory failure with hypoxia. Non-ST elevation [place] type II. Pleural effusion left. s/p synthesis. ESRD on hemodialysis. Hyponatremia. History of COPD. Coronary artery disease. Atrial fibrillation. Hypertension Time spent for discharge: 35 min Core Measure Documentation - Palliative Care Palliative Care/ Comfort Measures: Not Applicable - Core Measures Any of the following diagnoses?: none Exam - Constitutional Vitals: Temp Pulse Resp BP Pulse Ox 98 F 90 18 123/70 98 04/26/21 11:04 04/26/21 14:55 04/26/21 14:55 04/26/21 14:43 04/26/21 10:04 General appearance: Present: no acute distress, well-nourished - EENT Eyes: Present: PERRL, EOM intact - Neck Neck: Present: supple, normal ROM - Respiratory Respiratory effort: normal Respiratory: bilateral: diminished, negative: rales, rhonchi, wheezing - Cardiovascular Rhythm: regular Heart Sounds: Present: S1 & S2 - Extremities Extremities: no ischemia, No edema - Abdominal General gastrointestinal: Present: soft, non-tender, non-distended, normal bowel sounds - Integumentary Integumentary: Present: clear, warm - Musculoskeletal Musculoskeletal: strength equal bilaterally, generalized weakness - Psychiatric Psychiatric: appropriate mood/affect, cooperative - Neurologic Neurologic: moves all extremities Plan Activity: advance as tolerated, fall precautions Diet: other (Cardiac diet) Additional Instructions: If you have worsening symptoms contact MD or go to emergency room as needed,Fall precautions. Follow renal, and hemodialysis per schedule. Advised to use intensive spirometry 5-6 times a day. Check INR in 2 days at your primary care physician's office[target INR 2-3]. Follow private lung physician/color straining bag washer per schedule or as needed Follow up with: AWA ROMERO MD [Primary Care Provider] - 7 Days AMERICA MILTON MD [Staff Physician] - 7 Days Forms: Warfarin Discharge Instruction Prescriptions: Warfarin [Coumadin] 6 mg PO DAILY@1700 #60 tablet guaiFENesin/DEXTROMETHORPHAN [Robitussin Cough-Chest Dm Liq] 237 ml PO QID PRN 14 Days #1 bottle PRN Reason: Cough
[2021-04-26] MEDS ORDERED: WARFARIN 2 MG TAB PO SCH (17:00)
[2021-04-26 17:32] VITALS: BP 120/58
--- NOTE | 2021-04-27 09:41 | Electrocardiograph Report ---
[facility] Test Date: 2021-04-23 Test Time: 16:02:08 Pat Name: DAISY PABON Department: Room: A368 Gender: M Magician Helper: YOON : 1940 Requested By: RONDA ELMORE Order Number: [id number] Reading MD: Chris Gutierrez Measurements Intervals [place] Rate: 77 P: 45 IN: 159 QRS: -23 QRSD: 98 T: 96 QT: 368 QTc: 418 Interpretive Statements Sinus rhythm Probable left atrial enlargement Probable left ventricular hypertrophy Nonspecific T abnormalities, lateral leads ST elevation, consider inferior injury Compared to ECG 03/13/2021 07:28:02 T-wave abnormality now present ST (T wave) deviation now present Myocardial infarct finding now present Left-axis deviation no longer present Electronically Signed On 04-27-2021 9:40:52 EDT by Chris Gutierrez
[2021-04-29 11:16] LABS: Total Protein,Body Fluid 4.4 (15.0-45.0)
[2021-04-29 11:17] LABS: LDH,Body Fluid 241
[2021-04-30 07:55] LABS: Amylase,Body Fluid 56
== END 2021-04-26 16:30 | disposition home health service (06) | DRG 280 ==
LOC: ED 15:17 → 3A 22:45
PROVIDERS: ADMIT Internal Medicine; ATTEND Internal Medicine
PROC: 0W9B3ZZ Drainage of Left Pleural Cavity, Percutaneous Approach (ICD-10-PCS; principal; 2021-04-24)
PROC: 5A1D70Z Performance of Urinary Filtration, Intermittent, Less than 6 Hours Per Day (ICD-10-PCS; 2021-04-24)
PROC: BB4BZZZ Ultrasonography of Pleura (ICD-10-PCS; 2021-04-24)
PROC: 5A1D70Z Performance of Urinary Filtration, Intermittent, Less than 6 Hours Per Day (ICD-10-PCS; 2021-04-26)
DX: I13.2 Hypertensive heart and chronic kidney disease with heart failure and with stage 5 chronic kidney disease, or end stage renal disease (principal); J96.01 Acute respiratory failure with hypoxia; I21.A1 Myocardial infarction type 2; N18.6 End stage renal disease; J90 Pleural effusion, not elsewhere classified; E87.1 Hypo-osmolality and hyponatremia; N25.81 Secondary hyperparathyroidism of renal origin; I50.9 Heart failure, unspecified; Z99.2 Dependence on renal dialysis; D63.1 Anemia in chronic kidney disease; J44.9 Chronic obstructive pulmonary disease, unspecified; I25.10 Atherosclerotic heart disease of native coronary artery without angina pectoris; K21.9 Gastro-esophageal reflux disease without esophagitis; M19.90 Unspecified osteoarthritis, unspecified site; I48.91 Unspecified atrial fibrillation; Z79.899 Other long term (current) drug therapy; Z95.5 Presence of coronary angioplasty implant and graft; Z87.891 Personal history of nicotine dependence
CPT/HCPCS: 32555; 36415; 71045; 80048; 80053; 80061; 80074; 82150; 82550; 82553; 82947; 83605; 83880; 84160; 84484; 85025; 85610; 89051; 93005; 94640; G0378; A9270-GY; J0885

== ENCOUNTER 2021-07-10 14:15 | Emergency (ER) | payer MEDICARE ==
[2021-07-10] MEDS ORDERED: ONDANSETRON 4 MG/2 ML INJ IV ONE (14:17)
--- NOTE | 2021-07-10 14:20 | Event Note ---
Date: 07/10/21 The patient was evaluated in the emergency department for symptoms described in the history of present illness. He/she was evaluated in the context of the global COVID-19 pandemic, which necessitated consideration that the patient might be at risk for infection with the virus that causes COVID-19. Institutional protocols and algorithms that pertain to the evaluation of patients at risk for COVID-19 are in a state of rapid change based on information released by regulatory bodies including the CDC and federal and state organizations. These policies and algorithms were followed during the patient's care in the emergency department. 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 fib, on Coumadin anticoagulation, who was brought to the hospital by EMS. Patient complains of abdominal distention, cough, nausea, vomiting and shortness of breath. EMS reports patient had a syncopal event today. Patient gets dialysis Saturday, Saturday, Saturday. The patient received hemodialysis today. EMS reports the patient was hypoxic in the field. EMS is concerned that the patient is having a CHF exacerbation. Obtain appropriate laboratory studies, EKG, chest x-ray, place patient on surveillance monitor, continue home oxygen, obtain CT scan of the brain, cervical spine, abdomen/pelvis. Nephrology: Dr. Clemente/Christina
[2021-07-10 14:46] LABS: Basophils % (Auto) 0.3 % (0.0-1.8); Eosinophils % (Auto) 0.3 % (0.0-4.3); Hemoglobin 11.9 gm/dl (11.8-15.2); Lymphocytes # (Auto) 0.4 K/mm3 (1.2-5.4); Lymphocytes % (Auto) 4.8 % (13.4-35.0); Mean Corpuscular HGB Conc 33 % (32-34); Mean Corpuscular Volume 90 fl (84-94); Monocytes # (Auto) 0.5 K/mm3 (0.0-0.8); Monocytes % (Auto) 6.5 % (0.0-7.3); Red Blood Count 4.01 M/mm3 (3.65-5.03)
[2021-07-10 15:16] LABS: Albumin 4.2 g/dL (3.9-5); Calcium 10.2 mg/dL (8.4-10.2)
[2021-07-10 15:28] LABS: Platelet Count 171 K/mm3 (140-440)
[2021-07-10 15:39] LABS: Chol/HDL Ratio 2.98 %
[2021-07-10 15:41] LABS: INR 2.06 (0.87-1.13)
--- NOTE | 2021-07-10 16:42 | XRay Report ---
CHEST 1 VIEW 07/10/2021 3:56 PM INDICATION / CLINICAL INFORMATION: Dyspnea. COMPARISON: 05/24/2021 FINDINGS: SUPPORT DEVICES: None. HEART / MEDIASTINUM: No significant abnormality. LUNGS / PLEURA: Mild prominence of the pulmonary vasculature. No focal lung consolidation. No pneumot horax. ADDITIONAL FINDINGS: Stable prominent extrapleural fat seen adjacent to right lower lobe. IMPRESSION: 1. Mild prominence of the pulmonary vasculature can be seen with edema. Otherwise, and no acute abnor mality. Signer Name: Victor Manuel Mitchell MD Signed: 07/10/2021 4:38 PM Workstation Name: [id number]
--- NOTE | 2021-07-10 17:29 | Cat Scan Report ---
CT BRAIN: 07/10/2021 INDICATION / CLINICAL INFORMATION: syncope, ams. COMPARISON: CT brain 10/15/2018 FINDINGS: BRAIN/INTRACRANIAL STRUCTURES: Unenhanced CT images of the brain demonstrate no evidence of acute int racranial abnormality. Ventricles and sulci are prominent in size, consistent with age-related atrophic change. There is no CT evidence of acute large vessel territory ischemic injury, hemorrhage, or mass. There a re no abnormal extra axial fluid collections. EXTRACRANIAL STRUCTURES: Unremarkable. IMPRESSION: No acute abnormality. No significant change when compared to 10/15/2018. All CT scans at this location are performed using dose reduction to ALARA by means of automated expos ure control. Signer Name: Daniel Vazquez MD Signed: 07/10/2021 5:24 PM Workstation Name: [id number]
--- NOTE | 2021-07-10 17:30 | Cat Scan Report ---
CT ABDOMEN AND PELVIS WITHOUT CONTRAST INDICATION / CLINICAL INFORMATION: Unspecified abdominal pain, nausea and vomiting, syncope. TECHNIQUE: Axial CT images were obtained through the abdomen and pelvis without IV contrast. All CT scans at [facility] location are performed using CT dose reduction for ALARA by means of automated exposure control. COMPARISON: CT abdomen and pelvis without contrast from 03/03/2021. FINDINGS: LOWER CHEST: Previously seen pleural and pericardial effusions have resolved. Not seen previously is a solid nodule located posteriorly and inferiorly along the right lower lobe on image 38 of series 2 containing scattered calcifications and measuring up to 1.4 cm. A chest granuloma is again seen along the left lower lobe. There is a generalized bibasilar tree-in-bud pattern, most notable along the le ft lower lobe. Mild bibasilar atelectasis is also noted. Severe coronary atherosclerosis is unchanged . LIVER: No significant abnormality. GALLBLADDER/BILE DUCTS: No significant abnormality. PANCREAS: No significant abnormality. SPLEEN: No significant abnormality. ADRENALS: No significant abnormality. KIDNEYS / URETERS: Severe atrophy of the kidneys is unchanged. No acute abnormality. STOMACH / SMALL BOWEL: No significant abnormality. COLON: There is noninflamed right colonic diverticulosis without other significant abnormalities. APPENDIX: No significant abnormality. PERITONEUM: No free fluid. No free air. No fluid collection. LYMPH NODES: No significant adenopathy. AORTA / ARTERIES: Moderate atherosclerotic calcification without acute abnormality. IVC / VEINS: No significant abnormality. URINARY BLADDER: Collapsed and not well evaluated. REPRODUCTIVE ORGANS: No significant abnormality. ADDITIONAL FINDINGS: None. BONES: No acute abnormality or other significant interval changes. IMPRESSION: 1. No acute abnormality to explain the patient's complaints. 2. Single incidental pulmonary nodule(s) in the right lower lobe measuring 1.4 mm with solid charact eristics. Recommendation according to Fleischner Society 2017 Guidelines: Low Risk or High Risk Patie nt: Consider CT at 3 months, PET/CT, or tissue sampling. 3. Interval development of a tree-in-bud pattern along the lung bases, which could represent a chroni c infectious process such as mycobacterium avium complex. 4. Additional findings as above. Signer Name: Pascual Casarez MD Signed: 07/10/2021 5:26 PM Workstation Name: [id number]
--- NOTE | 2021-07-10 17:31 | Cat Scan Report ---
CT CERVICAL SPINE: 07/10/2020 INDICATION / CLINICAL INFORMATION: syncope, ams. COMPARISON: None available. FINDINGS: CT images of the cervical spine were obtained. Images are evaluated in the axial, coronal, and sagitt al planes. There is no evidence of acute abnormality. Prominent degenerative disc space narrowing and osteophyte formation is present at all levels in cerv ical spine. There is complete fusion at the C5-6 level. Degenerative facet changes are present bilate rally, more prominently on the right. Bilateral foraminal narrowing is present at the C2-3, C3-4, C4- 5, and C5-6 levels. CRANIOCERVICAL JUNCTION: Unremarkable. PARASPINAL STRUCTURES: Unremarkable IMPRESSION: No acute abnormality. Prominent degenerative changes. All CT scans at this location are performed using dose reduction to ALARA by means of automated expos ure control. Signer Name: Daniel Vazquez MD Signed: 07/10/2021 5:26 PM Workstation Name: [id number]
--- NOTE | 2021-07-10 18:28 | Emergency Department Report ---
HPI - General Chief Complaint: Dyspnea/Respdistress Time Seen by Provider: 07/10/21 16:06 - HPI HPI: 81-year-old -[place]ron[place] male presents to the emergency department via EMS from dialysis after he had a syncopal episode towards the end of his dialysis session. The patient is currently awake and alert, but says he does not remember feeling as if he was going to pass out and says that he came to with EMS present. In route to the emergency department the patient had an episode of vomiting. He complains of some mild shortness of breath and feels as if his abdomen is distended. He has a past medical history of end-stage renal disease on hemodialysis on Saturday/Saturday/Saturday, COPD, CHF, paroxysmal atrial fibrillation anticoagulated on Coumadin, coronary artery disease with cardiac stents. His produce specialist is Dr. Taylor. He is vaccinated for COVID-19. ED Past Medical Hx - Past Medical History Previous Medical History?: Yes Hx Hypertension: Yes Hx Heart Attack/AMI: Yes (x2; 2010) Hx Congestive Heart Failure: Yes Hx Diabetes: No Hx Liver Disease: No Hx Renal Disease: Yes (dialysis MWF fistula L FA) Hx Arthritis: Yes Hx Seizures: No Hx Asthma: Yes Hx COPD: Yes Hx HIV: No Additional medical history: anemia - Surgical History Past Surgical History?: Yes Hx Coronary Stent: Yes Hx Pacemaker: No Hx Internal Defibrillator: No - Social History Smoking Status: Former Smoker - Medications Home Medications: Home Medications Medication Instructions Recorded Confirmed Last Taken Type ALBUTEROL NEB's [Proventil 0.083% 2.5 mg IH Q6HRT PRN #50 nebu 09/28/20 04/25/21 04/23/21 Rx NEBS] AtorvaSTATin 10 mg PO QHS #30 tablet 09/28/20 04/25/21 04/22/21 Rx Budesonide [Pulmicort Respules] 0.5 mg IH Q12HRT #30 nebu 09/28/20 04/25/21 04/22/21 Rx Epoetin Eric 10,000 Unit [Procrit] 10,000 unit IV LIZANDRO PRN vial 09/28/20 04/24/21 02/28/21 12:39 Rx Ipratropium/Albuterol Sulfate 1 ampul IH TIDRT #50 ampul.neb 09/28/20 04/25/21 04/22/21 Rx [DUONEB *Not for PRN Use*] Sodium Bicarbonate 650 mg PO BID #60 09/28/20 04/25/21 04/23/21 Rx Tiotropium [Spiriva] 2 puff IH DAILY 30 Days #1 cap 09/28/20 04/25/21 04/23/21 Rx Clopidogrel [Plavix] 75 mg PO QDAY tablet 02/13/21 04/25/21 04/22/21 Rx Cholecalciferol Vit D3 [Vitamin D3 1,000 unit PO DAILY tablet 03/03/21 04/25/21 04/23/21 Rx 1,000 UNIT TAB] Lanthanum Carbonate [Fosrenol] 1,000 mg PO BIDAC tab.chew 03/03/21 04/25/21 04/23/21 Rx Pantoprazole [Protonix TAB] 40 mg PO QDAC tablet 03/03/21 04/25/21 04/23/21 Rx Metoprolol [Lopressor TAB] 50 mg PO BID #60 tablet 03/16/21 04/25/21 04/23/21 Rx Warfarin [Coumadin] 6 mg PO DAILY@1700 #60 tablet 04/26/21 Unknown Rx guaiFENesin/DEXTROMETHORPHAN 237 ml PO QID PRN 14 Days #1 bottle 04/26/21 Unknown Rx [Robitussin Cough-Chest Dm Liq] ED Review of Systems ROS: Stated complaint: CHF Other details as noted in HPI Comment: All other systems reviewed and negative Constitutional: denies: chills, fever Eyes: denies: eye pain, vision change ENT: denies: ear pain, throat pain Respiratory: shortness of breath. denies: cough Cardiovascular: syncope. denies: chest pain Gastrointestinal: abdominal pain, nausea, vomiting Genitourinary: denies: dysuria, discharge Musculoskeletal: denies: back pain, arthralgia Skin: denies: rash, lesions Neurological: denies: headache, weakness Physical Exam - Physical Exam Vital Signs: Vital Signs 07/10/21 16:47 Temperature 100.3 F H Pulse Rate 96 H Respiratory 16 Rate Blood Pressure 123/66 [Right] O2 Sat by Pulse 97 Oximetry Physical Exam: GENERAL: The patient is well-developed well-nourished. HENT: Normocephalic. Atraumatic. Patient has moist mucous membranes. EYES: Extraocular motions are intact. NECK: Supple. Trachea is midline. CHEST/LUNGS: Coarse breath sounds at the chest. Mild tachypnea but no accessory muscle use. HEART/CARDIOVASCULAR: Regular. There is no tachycardia. There is no murmur. ABDOMEN: Abdomen is soft. Mild generalized abdominal tenderness to palpation. Patient has normal bowel sounds. There is mild abdominal distention. SKIN: Skin is warm and dry. NEURO: The patient is awake, alert, and oriented. The patient is cooperative. The patient has no focal neurologic deficits. Normal speech. Cranial nerves II through XII grossly intact. MUSCULOSKELETAL: There is no tenderness or deformity. There is no limitation range of motion. ED Course Vital Signs 07/10/21 16:47 Temperature 100.3 F H Pulse Rate 96 H Respiratory 16 Rate Blood Pressure 123/66 [Right] O2 Sat by Pulse 97 Oximetry - Consultations Consultation #1: 07/10/21 19:05 I spoke with the patient's produce specialist, Dr Tang. They will consult on the patient but he does not require emergency dialysis tonight. ED Medical Decision Making - Lab Data Result diagrams: 07/10/21 14:27 07/10/21 14:27 Lab Results 07/10/21 07/10/21 07/10/21 Range/Units 14:27 14:27 14:27 WBC 8.2 (4.5-11.0) K/mm3 RBC 4.01 (3.65-5.03) M/mm3 Hgb 11.9 (11.8-15.2) gm/dl Hct 36.0 (35.5-45.6) % MCV 90 (84-94) fl MCH 30 (28-32) pg MCHC 33 (32-34) % RDW 16.0 H (13.2-15.2) % Plt Count 171 (140-440) K/mm3 Lymph % (Auto) 4.8 L (13.4-35.0) % [place] % (Auto) 6.5 (0.0-7.3) % Eos % (Auto) 0.3 (0.0-4.3) % Baso % (Auto) 0.3 (0.0-1.8) % Lymph # (Auto) 0.4 L (1.2-5.4) K/mm3 [place]arnett # (Auto) 0.5 (0.0-0.8) K/mm3 Eos # (Auto) 0.0 (0.0-0.4) K/mm3 Baso # (Auto) 0.0 (0.0-0.1) K/mm3 Seg Neutrophils % 88.1 H (40.0-70.0) % Seg Neutrophils # 7.2 (1.8-7.7) K/mm3 PT 23.6 H (12.2-14.9) Sec. INR 2.06 H (0.87-1.13) Sodium 135 L (137-145) mmol/L Potassium 5.0 (3.6-5.0) mmol/L Chloride 96.4 L (98-107) mmol/L Carbon Dioxide 23 (22-30) mmol/L Anion Gap 21 mmol/L BUN 36 H (9-20) mg/dL Creatinine 6.8 H (0.8-1.3) mg/dL Estimated GFR 10 ml/min BUN/Creatinine Ratio 5 % Glucose 100 (75-100) mg/dL Calcium 10.2 (8.4-10.2) mg/dL Magnesium 2.30 (1.7-2.3) mg/dL Total Bilirubin 0.40 (0.1-1.2) mg/dL AST 18 (5-40) units/L ALT 13 (7-56) units/L Alkaline Phosphatase 62 (35-129) units/L Total Creatine Kinase 237 H (55-170) units/L Troponin T 0.131 H* (0.00-0.029) ng/mL NT-Pro-B Natriuret Pep 07540 H (0-900) pg/mL Total Protein 8.6 H (6.3-8.2) g/dL Albumin 4.2 (3.9-5) g/dL Albumin/Globulin Ratio 1.0 % Triglycerides 116 (2-149) mg/dL Cholesterol 176 (50-199) mg/dL LDL Cholesterol Direct 103 (50-130) mg/dL HDL Cholesterol 59 (40-59) mg/dL Cholesterol/HDL Ratio 2.98 % - EKG Data -: EKG Interpreted by Il EKG shows normal: sinus rhythm (PVCs), axis (Left axis deviation), intervals, QRS complexes (Left anterior fascicular block, LVH), ST-T waves (Lateral T wave inversions) Rate: normal - EKG Data When compared to previous EKG there are: changes noted (T wave inversions on lateral leads are new or more pronounced on current EKG, otherwise no change from 04/23/2021) Interpretation: other (Sinus rhythm with multiple PVCs, left axis deviation, left anterior fascicular block, LVH, T wave inversions in the inferior leads) - Radiology Data Radiology results: image reviewed interpreted by me: Chest x-ray shows some mild cardiomegaly and pulmonary vascular congestion. No widened mediastinum. No pneumothorax. CT BRAIN: 07/10/2021 INDICATION / CLINICAL INFORMATION: syncope, ams. COMPARISON: CT brain 10/15/2018 FINDINGS: BRAIN/INTRACRANIAL STRUCTURES: Unenhanced CT images of the brain demonstrate no evidence of acute intracranial abnormality. Ventricles and sulci are prominent in size, consistent with age-related atrophic change. There is no CT evidence of acute large vessel territory ischemic injury, hemorrhage, or mass. There are no abnormal extra axial fluid collections. EXTRACRANIAL STRUCTURES: Unremarkable. IMPRESSION: No acute abnormality. No significant change when compared to 10/15/2018. CT CERVICAL SPINE: 07/10/2020 INDICATION / CLINICAL INFORMATION: syncope, ams. COMPARISON: None available. FINDINGS: CT images of the cervical spine were obtained. Images are evaluated in the axial, coronal, and sagittal planes. There is no evidence of acute abnormality. Prominent degenerative disc space narrowing and osteophyte formation is present at all levels in cervical spine. There is complete fusion at the C5-6 level. Degenerative facet changes are present bilaterally, more prominently on the right. Bilateral foraminal narrowing is present at the C2-3, C3-4, C4-5, and C5-6 levels. CRANIOCERVICAL JUNCTION: Unremarkable. PARASPINAL STRUCTURES: Unremarkable IMPRESSION: No acute abnormality. Prominent degenerative changes. CT ABDOMEN AND PELVIS WITHOUT CONTRAST INDICATION / CLINICAL INFORMATION: Unspecified abdominal pain, nausea and vomiting, syncope. TECHNIQUE: Axial CT images were obtained through the abdomen and pelvis without IV contrast. All CT scans at this location are performed using CT dose reduction for ALARA by means of automated exposure control. COMPARISON: CT abdomen and pelvis without contrast from 03/03/2021. FINDINGS: LOWER CHEST: Previously seen pleural and pericardial effusions have resolved. Not seen previously is a solid nodule located posteriorly and inferiorly along the right lower lobe on image 38 of series 2 containing scattered calcifications and measuring up to 1.4 cm. A chest granuloma is again seen along the left lower lobe. There is a generalized bibasilar tree-in-bud pattern, most notable along the left lower lobe. Mild bibasilar atelectasis is also noted. Severe coronary atherosclerosis is unchanged. LIVER: No significant abnormality. GALLBLADDER/BILE DUCTS: No significant abnormality. PANCREAS: No significant abnormality. SPLEEN: No significant abnormality. ADRENALS: No significant abnormality. KIDNEYS / URETERS: Severe atrophy of the kidneys is unchanged. No acute abnormality. STOMACH / SMALL BOWEL: No significant abnormality. COLON: There is noninflamed right colonic diverticulosis without other significant abnormalities. APPENDIX: No significant abnormality. PERITONEUM: No free fluid. No free air. No fluid collection. LYMPH NODES: No significant adenopathy. AORTA / ARTERIES: Moderate atherosclerotic calcification without acute abnormality. IVC / VEINS: No signifi cant abnormality. URINARY BLADDER: Collapsed and not well evaluated. REPRODUCTIVE ORGANS: No significant abnormality. ADDITIONAL FINDINGS: None. BONES: No acute abnormality or other significant interval changes. IMPRESSION: 1. No acute abnormality to explain the patient's complaints. 2. Single incid ental pulmonary nodule(s) in the right lower lobe measuring 1.4 mm with solid characteristics. Recommendation according to Fleischner Society 2017 Guidelines: Low Risk or High Risk Patient: Consider CT at 3 months, PET/CT, or tissue sampling. 3. Interval development of a tree-in-bud pattern along the lung bases, which could represent a chronic infectious process such as mycobacterium avium complex. 4. Additional findings as above. - Medical Decision Making This patient presents to the emergency department from dialysis after he had a syncopal episode. He has returned to what appears to be his baseline mental status. In route he had an episode of nausea with vomiting. EKG does not have any morphology consistent with ST elevation myocardial infarction. He does appear to have some new or more pronounced lateral T wave inversions. Chest x-ray shows some mild volume overload with pulmonary vascular congestion. The patient completed about three quarters of his dialysis session but it was stopped with the syncopal episode. Labs show renal insufficiency consistent with his end-stage renal disease on hemodialysis. He has an elevated troponin that appears consistent with previous visits. Elevated proBNP that is most likely a combination of his end-stage renal disease, as well as a CHF exacerbation. Nephrology has been contacted and consulted but the patient does not require emergent dialysis tonight. They will consult on the patient. Patient will be admitted to the hospital for further evaluation and treatment was accepted for admission by the hospitalist, Dr. Pop. Critical Care Time: No Critical care attestation.: If time is entered above; I have spent that time in minutes in the direct care of this critically ill patient, excluding procedure time. ED Disposition Clinical Impression: Acute exacerbation of CHF (congestive heart failure), ESRD (end stage renal disease), Elevated troponin, Syncope and collapse Disposition: ADMITTED INPATIENT Is pt being admited?: Yes Condition: Serious Instructions: Syncope (ED) Time of Disposition: 19:18
--- NOTE | 2021-07-10 18:42 | History and Physical Report ---
History of Present Illness Chief complaint: I passed out History of present illness: 81 YO Male with COPD, CAD, S/P Stent Placement, HLD, ESRD on HD M/W/F, HTN, Paroxysmal Atrial Fibrillation currently on therapeutic anticoagulation with Coumadin, [place], Diastolic CHF, OA, COPD presents to ED for evaluation. Patient reports "I passed out". Patient states that he was in his usual state of health and presented to his outpatient dialysis center for his routine scheduled dialysis. Patient states that he was undergoing dialysis and that all that he remembers. Dialysis center staff report the patient lost consciousness. EMS was notified and upon arrival the patient was found to be in distress and subsequently transported to [facility] for further care and evaluation of the aforementioned symptoms. The patient was seen and evaluated in the emergency department. All lab and imaging studies reviewed. Patient was found to have end-stage renal disease in need of dialysis, CHF, as well as syncope. Patient was also found to have an incidental finding of a right lower lobe pulmonary nodule. Patient denies fever, chills, chest pain, palpitation, productive cough, skin rash, recent ill contacts, known exposure to COVID-19. Prior admission on 04/23/2021 reviewed. All medication listed at time of admission has been reconciled. Advanced care planning conducted in ED. Past History Past Medical History: acute [place], atrial fib, ESRD, heart failure, hypertension Past Surgical History: Other (Cardiac stent placement, dialysis access) Social history: , lives with family. denies: smoking, alcohol abuse Family history: diabetes, hypertension Medications and Allergies Allergies Allergy/AdvReac Type Severity Reaction Status Date / Time atorvastatin calcium Allergy Mild Unknown Verified 02/12/21 10:43 [From Lipitor] ciprofloxacin [From Cipro] Allergy Mild Bleeding Verified 09/23/20 12:30 ciprofloxacin HCl Allergy Mild Bleeding Verified 09/23/20 12:30 [From Cipro] simvastatin Allergy Mild Unknown Verified 09/23/20 12:30 Home Medications Medication Instructions Recorded Confirmed Last Taken Type ALBUTEROL NEB's [Proventil 0.083% 2.5 mg IH Q6HRT PRN #50 nebu 09/28/20 04/25/21 04/23/21 Rx NEBS] AtorvaSTATin 10 mg PO QHS #30 tablet 09/28/20 04/25/21 04/22/21 Rx Budesonide [Pulmicort Respules] 0.5 mg IH Q12HRT #30 nebu 09/28/20 04/25/21 04/22/21 Rx Epoetin Eric 10,000 Unit [Procrit] 10,000 unit IV LIZANDRO PRN vial 09/28/20 04/24/21 02/28/21 12:39 Rx Ipratropium/Albuterol Sulfate 1 ampul IH TIDRT #50 ampul.neb 09/28/20 04/25/21 04/22/21 Rx [DUONEB *Not for PRN Use*] Sodium Bicarbonate 650 mg PO BID #60 09/28/20 04/25/21 04/23/21 Rx Tiotropium [Spiriva] 2 puff IH DAILY 30 Days #1 cap 09/28/20 04/25/21 04/23/21 Rx Clopidogrel [Plavix] 75 mg PO QDAY tablet 02/13/21 04/25/21 04/22/21 Rx Cholecalciferol Vit D3 [Vitamin D3 1,000 unit PO DAILY tablet 03/03/21 04/25/21 04/23/21 Rx 1,000 UNIT TAB] Lanthanum Carbonate [Fosrenol] 1,000 mg PO BIDAC tab.chew 03/03/21 04/25/21 04/23/21 Rx Pantoprazole [Protonix TAB] 40 mg PO QDAC tablet 03/03/21 04/25/21 04/23/21 Rx Metoprolol [Lopressor TAB] 50 mg PO BID #60 tablet 03/16/21 04/25/21 04/23/21 Rx Warfarin [Coumadin] 6 mg PO DAILY@1700 #60 tablet 04/26/21 Unknown Rx guaiFENesin/DEXTROMETHORPHAN 237 ml PO QID PRN 14 Days #1 bottle 04/26/21 Unknown Rx [Robitussin Cough-Chest Dm Liq] Review of Systems Constitutional: other (I passed out), no weight loss, no weight gain, no fever, no chills Ears, nose, mouth and throat: no ear pain, no ear discharge, no tinnitis, no nose pain Cardiovascular: no chest pain, no orthopnea, no palpitations, no rapid/irregular heart beat, no edema, no lightheadedness Respiratory: no cough, no cough with sputum, no excessive sputum, no shortness of breath, no dyspnea on exertion Gastrointestinal: no abdominal pain, no nausea, no vomiting, no change in bowel habits Genitourinary Male: no hematuria, no flank pain, no discharge Rectal: no pain, no incontinence, no bleeding Musculoskeletal: no neck stiffness, no neck pain, no arm numbness/tingling, no shooting leg pain, no leg numbness/tingling Integumentary: no rash, no pruritis, no redness, no wounds, no jaundice, no blisters Neurological: no paralysis, no weakness, no tingling, no seizures, no tremors Psychiatric: no anxiety, no change in sleep habits, no sleep disturbances, no insomnia, no hypersomnia, no change in libido, no disorientation Endocrine: no cold intolerance, no heat intolerance, no excessive thirst, no polydipsia, no nocturia, no flushing Hematologic/Lymphatic: no easy bruising, no easy bleeding, no lymphadenopathy Allergic/Immunologic: no urticaria, no wheezing, no persistent infections, no anaphylaxis Exam - Constitutional Vitals: Temp Pulse Resp BP Pulse Ox 100.3 F H 96 H 16 123/66 97 07/10/21 16:47 07/10/21 16:47 07/10/21 16:47 07/10/21 16:47 07/10/21 16:47 General appearance: Present: mild distress - EENT Eyes: Present: PERRL ENT: hearing intact, clear oral mucosa - Neck Neck: Present: supple, normal ROM - Respiratory Respiratory effort: normal Respiratory: bilateral: CTA - Cardiovascular Heart Sounds: Present: S1 & S2. Absent: rub, click - Extremities Extremities: pulses symmetrical, No edema Peripheral Pulses: within normal limits - Abdominal General gastrointestinal: Present: soft, non-tender, non-distended, normal bowel sounds Male genitourinary: Present: normal - Integumentary Integumentary: Present: clear, warm, dry - Musculoskeletal Musculoskeletal: gait normal, strength equal bilaterally - Psychiatric Psychiatric: appropriate mood/affect, intact judgment & insight - Neurologic Neurologic: CNII-XII intact, moves all extremities HEART Score - HEART Score Troponin: Troponin T 0.131 ng/mL (0.00-0.029) H* 07/10/21 14:27 Results - Labs CBC & Chem 7: 07/10/21 14:27 07/10/21 14:27 Labs: Abnormal lab results 07/10/21 07/10/21 07/10/21 Range/Units 14:27 14:27 14:27 RDW 16.0 H (13.2-15.2) % Lymph % (Auto) 4.8 L (13.4-35.0) % Lymph # (Auto) 0.4 L (1.2-5.4) K/mm3 Seg Neutrophils % 88.1 H (40.0-70.0) % PT 23.6 H (12.2-14.9) Sec. INR 2.06 H (0.87-1.13) Sodium 135 L (137-145) mmol/L Chloride 96.4 L (98-107) mmol/L BUN 36 H (9-20) mg/dL Creatinine 6.8 H (0.8-1.3) mg/dL Total Creatine Kinase 237 H (55-170) units/L Troponin T 0.131 H* (0.00-0.029) ng/mL NT-Pro-B Natriuret Pep 59166 H (0-900) pg/mL Total Protein 8.6 H (6.3-8.2) g/dL Assessment and Plan - Patient Problems (1) Acute diastolic heart failure Current Visit: No Status: Acute Plan to address problem: Cardiology team consulted, strict I's/O, monitor urine output every shift, blood pressure control (2) End stage renal disease Current Visit: Yes Status: Acute Plan to address problem: Nephrology team consulted in ED, strict I's/O, avoid nephrotoxic agents, dialysis as per renal team. (3) Pulmonary nodule Current Visit: Yes Status: Acute Plan to address problem: Repeat CT scan in 3 months as outpatient. (4) Syncope and collapse Current Visit: Yes Status: Acute Plan to address problem: Neuro check, seizure precautions, cardiology team consulted, telemetry monitoring, supportive care. (5) DVT prophylaxis Current Visit: Yes Status: Acute Plan to address problem: SCD to bilateral lower extremities while in bed, continue therapeutic anticoagulation (6) Advance care planning Current Visit: Yes Status: Acute Plan to address problem: Disease education conducted, care plan discussed, diagnoses discussed, prognosis discussed, patient is full code. Patient knowledges understanding agreement w ith care plan, +30 minutes.
[2021-07-10] MEDS ORDERED: [UNRECOGNIZED DRUG - OTHER] PO PRN (18:45)
[2021-07-10] MEDS ORDERED: EPOETIN ALFA IV PRN (18:45)
[2021-07-10] MEDS ORDERED: GUAIFENESIN PO PRN (18:45)
[2021-07-10] MEDS ORDERED: DEXTROMETHORPHAN PO PRN (18:45)
[2021-07-10] MEDS ORDERED: HYDROmorphone 1 MG/1 ML INJ IV PRN (18:51)
[2021-07-10] MEDS ORDERED: ACETAMINOPHEN 325 MG TAB PO PRN (18:51)
[2021-07-10] MEDS ORDERED: ONDANSETRON 4 MG/2 ML INJ IV PRN (18:51)
[2021-07-10] MEDS ORDERED: ALBUTEROL 2.5 MG/3 ML NEBU IH PRN (18:51)
[2021-07-10] MEDS ORDERED: oxyCODONE /ACETAMINOPHEN 5-325MG TAB PO PRN (18:51)
[2021-07-10] MEDS ORDERED: guaiFENesin DM 200/20 MG ORAL LIQD 10 ML PO PRN (18:55)
[2021-07-10] MEDS ORDERED: EPOETIN ALFA-EPBX 10,000 UNIT/1 ML VIAL IV PRN (18:59)
[2021-07-10] MEDS: SODIUM BICARBONATE 650 MG TAB PO SCH (22:02)
[2021-07-10] MEDS: METOPROLOL TARTRATE 50 MG TAB PO SCH (22:02)
[2021-07-11 06:09] LABS: Calcium 9.5 mg/dL (8.4-10.2)
[2021-07-11 06:20] LABS: Basophils % (Auto) 0.4 % (0.0-1.8); Eosinophils # (Auto) 0.1 K/mm3 (0.0-0.4); Eosinophils % (Auto) 0.5 % (0.0-4.3); Hematocrit 32.2 % (35.5-45.6); Hemoglobin 10.3 gm/dl (11.8-15.2); Mean Corpuscular HGB Conc 32 % (32-34); Mean Corpuscular Volume 89 fl (84-94); Monocytes # (Auto) 1.1 K/mm3 (0.0-0.8); Monocytes % (Auto) 8.6 % (0.0-7.3); Platelet Count 174 K/mm3 (140-440); Red Cell Distribution Width 16.1 % (13.2-15.2)
[2021-07-11 06:27] LABS: INR 2.15 (0.87-1.13)
[2021-07-11] MEDS: LANTHANUM CARBONATE 500 MG TAB PO SCH ×2 (08:30→17:32)
[2021-07-11] MEDS: PANTOPRAZOLE 40 MG TAB PO SCH (08:37)
--- NOTE | 2021-07-11 10:03 | Consultation ---
History of Present Illness - Reason for Consult Consult date: 07/11/21 Requesting physician: GLORIA COX - History of Present Illness 81 YO Male with COPD, CAD, S/P Stent Placement, HLD, ESRD on HD M/W/F, HTN, Paroxysmal Atrial Fibrillation currently on therapeutic anticoagulation with Coumadin, [place], Diastolic CHF, OA, COPD presents to ED for evaluation. Patient reports "I passed out". Patient states that he was in his usual state of health and presented to his outpatient dialysis center for his routine scheduled dialysis. Patient states that he was undergoing dialysis and that all that he remembers. Dialysis center staff report the patient lost consciousness. EMS was notified and upon arrival the patient was found to be in distress and subsequently transported to [facility] for further care and evaluation of the aforementioned symptoms. The patient was seen and evaluated in the emergency department. All lab and imaging studies reviewed. Patient was found to have end-stage renal disease in need of dialysis, CHF, as well as syncope. Patient was also found to have an incidental finding of a right lower lobe pulmonary nodule. Patient denies fever, chills, chest pain, palpitation, productive cough, skin rash, recent ill contacts, known exposure to COVID-19. Patient undergoes dialysis at [facility] on MWF schedule. Patient states that her treatment on Saturday was cut short by 30 minutes and yesterday it was also terminated 20 minutes early. Patient states that his post weight was more than 1 L in his target weight. Past History Past Medical History: acute CT, atrial fib, ESRD, heart failure, hypertension Past Surgical History: Other (Cardiac stent placement, dialysis access) Social history: , lives with family. denies: smoking, alcohol abuse Family history: diabetes, hypertension Medications and Allergies Allergies Allergy/AdvReac Type Severity Reaction Status Date / Time atorvastatin calcium Allergy Mild Unknown Verified 02/12/21 10:43 [From Lipitor] ciprofloxacin [From Cipro] Allergy Mild Bleeding Verified 09/23/20 12:30 ciprofloxacin HCl Allergy Mild Bleeding Verified 09/23/20 12:30 [From Cipro] simvastatin Allergy Mild Unknown Verified 09/23/20 12:30 Home Medications Medication Instructions Recorded Confirmed Last Taken Type ALBUTEROL NEB's [Proventil 0.083% 2.5 mg IH Q6HRT PRN #50 nebu 09/28/20 04/25/21 04/23/21 Rx NEBS] AtorvaSTATin 10 mg PO QHS #30 tablet 09/28/20 04/25/21 04/22/21 Rx Budesonide [Pulmicort Respules] 0.5 mg IH Q12HRT #30 nebu 09/28/20 04/25/21 0 04/22/21 Rx Epoetin Eric 10,000 Unit [Procrit] 10,000 unit IV LIZANDRO PRN vial 09/28/20 04/24/21 02/28/21 12:39 Rx Ipratropium/Albuterol Sulfate 1 ampul IH TIDRT #50 ampul.neb 09/28/20 04/25/21 04/22/21 Rx [DUONEB *Not for PRN Use*] Sodium Bicarbonate 650 mg PO BID #60 09/28/20 04/25/21 04/23/21 Rx Tiotropium [Spiriva] 2 puff IH DAILY 30 Days #1 cap 09/28/20 04/25/21 04/23/21 Rx Clopidogrel [Plavix] 75 mg PO QDAY tablet 02/13/21 04/25/21 04/22/21 Rx Cholecalciferol Vit D3 [Vitamin D3 1,000 unit PO DAILY tablet 03/03/21 04/25/21 04/23/21 Rx 1,000 UNIT TAB] Lanthanum Carbonate [Fosrenol] 1,000 mg PO BIDAC tab.chew 03/03/21 04/25/21 04/23/21 Rx Pantoprazole [Protonix TAB] 40 mg PO QDAC tablet 03/03/21 04/25/21 04/23/21 Rx Metoprolol [Lopressor TAB] 50 mg PO BID #60 tablet 03/16/21 04/25/21 04/23/21 Rx Warfarin [Coumadin] 6 mg PO DAILY@1700 #60 tablet 04/26/21 Unknown Rx guaiFENesin/DEXTROMETHORPHAN 237 ml PO QID PRN 14 Days #1 bottle 04/26/21 Unknown Rx [Robitussin Cough-Chest Dm Liq] Active Meds: Active Medications Acetaminophen (Acetaminophen 325 Mg Tab) 650 mg PO Q4H PRN PRN Reason: Pain MILD(1-3)/Fever >100.5/STOLL Albuterol (Albuterol 2.5 Mg/3 Ml Nebu) 2.5 mg IH Q4HRT PRN PRN Reason: Shortness Of Breath Atorvastatin Calcium (Atorvastatin 10 Mg Tab) 10 mg PO QHS [facility] Last Admin: 07/10/21 22:02 Dose: 10 mg Documented by: Cholecalciferol (Cholecalciferol (Vit D3) 1000 Unit (25 Mcg) Tab) 1,000 unit PO DAILY [facility] Clopidogrel Bisulfate (Clopidogrel 75 Mg Tab) 75 mg PO QDAY [facility] Guaifenesin (Guaifenesin Dm 200/20 Mg Oral Liqd 10 Ml) 10 ml PO Q6H PRN PRN Reason: Cough Hydromorphone HCl (Hydromorphone 1 Mg/1 Ml Inj) 0.5 mg IV Q12H PRN PRN Reason: Pain , Severe (7-10) Lanthanum Carbonate (Lanthanum Carbonate 500 Mg Tab) 1,000 mg PO BIDAC [facility] Last Admin: 07/11/21 08:30 Dose: 1,000 mg Documented by: Metoprolol Tartrate (Metoprolol Tartrate 50 Mg Tab) 50 mg PO BID [facility] Last Admin: 07/10/21 22:02 Dose: 50 mg Documented by: Ondansetron HCl (Ondansetron 4 Mg/2 Ml Inj) 4 mg IV Q8H PRN PRN Reason: Nausea And Vomiting Oxycodone/Acetaminophen (Oxycodone /Acetaminophen 5-325mg Tab) 1 tab PO Q12H PRN PRN Reason: Pain, Moderate (4-6) Pantoprazole Sodium (Pantoprazole 40 Mg Tab) 40 mg PO QDAC [facility] Last Admin: 07/11/21 08:37 Dose: 40 mg Documented by: Sodium Bicarbonate (Sodium Bicarbonate 650 Mg Tab) 650 mg PO BID [facility] Last Admin: 07/10/21 22:02 Dose: 650 mg Documented by: Sodium Chloride (Sodium Chloride 0.9% 10 Ml Flush Syringe) 10 ml IV BID [facility] Last Admin: 07/10/21 22:02 Dose: 10 ml Documented by: Sodium Chloride (Sodium Chloride 0.9% 10 Ml Flush Syringe) 10 ml IV PRN PRN PRN Reason: LINE FLUSH Tiotropium [place] (Tiotropium 18 Mcg Cap Inhalation) 2 puff IH DAILY [facility] Warfarin Sodium (Warfarin 2 Mg Tab) 6 mg PO DAILY@1700 [facility]; Protocol Review of Systems All systems: negative (Except as noted above) Exam - Vital Signs Vital signs: Vital Signs Temp Pulse Resp BP Pulse Ox 100.3 F H 96 H 16 123/66 97 07/10/21 16:47 07/10/21 16:47 07/10/21 16:47 07/10/21 16:47 07/10/21 16:47 - General Appearance General appearance: well-developed, well-nourished, appears stated age EENT: PERRL, mucous membranes moist Neck: Present: neck supple, trachea midline. Absent: JVD/HJR, Masses Respiratory: Clear to Ascultation Heart: irregularly irregular Gastrointestinal: Present: normal. Absent: tenderness, distended, masses, guarding Integumentary: no rash, warm and dry, other (AV fistula left forearm. Good bruit and thrill) Neurologic: no focal deficit Results - Lab Results 07/11/21 04:36 07/11/21 04:36 Most recent lab results Calcium 9.5 mg/dL (8.4-10.2) 07/11/21 04:36 Magnesium 2.30 mg/dL (1.7-2.3) 07/10/21 14:27 Assessment and Plan Impression * End-stage renal disease on maintenance hemodialysis * Hyperkalemia * Mild volume overload * COPD * Syncope * Coronary artery disease. Status post stent placement * Hypertension Recommendations * Patient is hyperkalemic and also clinically mildly volume overloaded. * Shall arrange for hemodialysis treatment today and keep him on TTS schedule for now. His outpatient days are however MWF * Adjust diet and meds for ESRD state * Avoid nephrotoxins * Monitor fluid status and electrolytes closely * No IV, BP or venipuncture in his access arm * Further plan as per cardiology services * Thank you very much for the consultation. Shall follow along with you
[2021-07-11] MEDS ORDERED: SODIUM CHLORIDE 0.9% 100 ML IV PRN (10:30)
[2021-07-11] MEDS: TIOTROPIUM 18 MCG CAP INHALATION IH SCH (10:40)
[2021-07-11] MEDS: CLOPIDOGREL 75 MG TAB PO SCH (10:41)
[2021-07-11] MEDS: CHOLECALCIFEROL (VIT D3) 1000 UNIT (25 mcg) TAB PO SCH (10:41)
[2021-07-11] MEDS: METOPROLOL TARTRATE 50 MG TAB PO SCH ×2 (10:45→22:32)
[2021-07-11] MEDS: SODIUM BICARBONATE 650 MG TAB PO SCH ×2 (10:45→22:27)
[2021-07-11] MEDS ORDERED: SODIUM POLYSTYRENE 15 GM/60 ML ORAL LIQD PO PRN (11:32)
[2021-07-11] MEDS ORDERED: ALBUMIN HUMAN 25% (25 GM/100 ML) INJ IV STA (13:51)
--- NOTE | 2021-07-11 16:26 | Consultation ---
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 fib anticoagulated on Coumadin. Patient is followed by Dr West in our office. [facility] of [facility] while undergoing dialysis. Patient states that he was undergoing dialysis and that is all he remembers. He reports being at his normal state of health prior to his dialysis. His dialysis session was ended early and EMS was called. In ED work showed that patient had right lower lobe nodule. The patient denies chest pain, palpitations, diaphoresis, or dyspnea. Cardiology is consulted for syncope. Past History Past Medical History: acute ME, atrial fib, ESRD, heart failure, hypertension Past Surgical History: Other (Cardiac stent placement, dialysis access) Social history: , lives with family. denies: smoking, alcohol abuse Family history: diabetes, hypertension Medications and Allergies Allergies Allergy/AdvReac Type Severity Reaction Status Date / Time atorvastatin calcium Allergy Mild Unknown Verified 02/12/21 10:43 [From Lipitor] ciprofloxacin [From Cipro] Allergy Mild Bleeding Verified 09/23/20 12:30 ciprofloxacin HCl Allergy Mild Bleeding Verified 09/23/20 12:30 [From Cipro] simvastatin Allergy Mild Unknown Verified 09/23/20 12:30 Home Medications Medication Instructions Recorded Confirmed Last Taken Type ALBUTEROL NEB's [Proventil 0.083% 2.5 mg IH Q6HRT PRN #50 nebu 09/28/20 04/25/21 04/23/21 Rx NEBS] AtorvaSTATin 10 mg PO QHS #30 tablet 09/28/20 04/25/21 04/22/21 Rx Budesonide [Pulmicort Respules] 0.5 mg IH Q12HRT #30 nebu 09/28/20 04/25/21 04/22/21 Rx Epoetin Eric 10,000 Unit [Procrit] 10,000 unit IV LIZANDRO PRN vial 09/28/20 04/24/21 02/28/21 12:39 Rx Ipratropium/Albuterol Sulfate 1 ampul IH TIDRT #50 ampul.neb 09/28/20 04/25/21 04/22/21 Rx [DUONEB *Not for PRN Use*] Sodium Bicarbonate 650 mg PO BID #60 09/28/20 04/25/21 04/23/21 Rx Tiotropium [Spiriva] 2 puff IH DAILY 30 Days #1 cap 09/28/20 04/25/21 04/23/21 Rx Clopidogrel [Plavix] 75 mg PO QDAY tablet 02/13/21 04/25/21 04/22/21 Rx Cholecalciferol Vit D3 [Vitamin D3 1,000 unit PO DAILY tablet 03/03/21 04/25/21 04/23/21 Rx 1,000 UNIT TAB] Lanthanum Carbonate [Fosrenol] 1,000 mg PO BIDAC tab.chew 03/03/21 04/25/21 04/23/21 Rx Pantoprazole [Protonix TAB] 40 mg PO QDAC tablet 03/03/21 04/25/21 04/23/21 Rx Metoprolol [Lopressor TAB] 50 mg PO BID #60 tablet 03/16/21 04/25/21 04/23/21 Rx Warfarin [Coumadin] 6 mg PO DAILY@1700 #60 tablet 04/26/21 Unknown Rx guaiFENesin/DEXTROMETHORPHAN 237 ml PO QID PRN 14 Days #1 bottle 04/26/21 Unknown Rx [Robitussin Cough-Chest Dm Liq] Active Meds: Active Medications Acetaminophen (Acetaminophen 325 Mg Tab) 650 mg PO Q4H PRN PRN Reason: Pain MILD(1-3)/Fever >100.5/STOLL Albuterol (Albuterol 2.5 Mg/3 Ml Nebu) 2.5 mg IH Q4HRT PRN PRN Reason: Shortness Of Breath Atorvastatin Calcium (Atorvastatin 10 Mg Tab) 10 mg PO QHS ON LICENSE OF [facility] Last Admin: 07/10/21 22:02 Dose: 10 mg Documented by: Cholecalciferol (Cholecalciferol (Vit D3) 1000 Unit (25 Mcg) Tab) 1,000 unit PO DAILY ON LICENSE OF [facility] Last Admin: 07/11/21 10:41 Dose: 1,000 unit Documented by: Clopidogrel Bisulfate (Clopidogrel 75 Mg Tab) 75 mg PO QDAY ON LICENSE OF [facility] Last Admin: 07/11/21 10:41 Dose: 75 mg Documented by: Guaifenesin (Guaifenesin Dm 200/20 Mg Oral Liqd 10 Ml) 10 ml PO Q6H PRN PRN Reason: Cough Hydromorphone HCl (Hydromorphone 1 Mg/1 Ml Inj) 0.5 mg IV Q12H PRN PRN Reason: Pain , Severe (7-10) Sodium Chloride (Nacl 0.9%) 100 mls @ 999 mls/hr IV LIZANDRO PRN PRN Reason: Hypotension Lanthanum Carbonate (Lanthanum Carbonate 500 Mg Tab) 1,000 mg PO BIDAC ON LICENSE OF [facility] Last Admin: 07/11/21 08:30 Dose: 1,000 mg Documented by: Metoprolol Tartrate (Metoprolol Tartrate 50 Mg Tab) 50 mg PO BID ON LICENSE OF [facility] Last Admin: 07/11/21 10:45 Dose: Not Given Documented by: Ondansetron HCl (Ondansetron 4 Mg/2 Ml Inj) 4 mg IV Q8H PRN PRN Reason: Nausea And Vomiting Oxycodone/Acetaminophen (Oxycodone /Acetaminophen 5-325mg Tab) 1 tab PO Q12H PRN PRN Reason: Pain, Moderate (4-6) Pantoprazole Sodium (Pantoprazole 40 Mg Tab) 40 mg PO QDAC ON LICENSE OF [facility] Last Admin: 07/11/21 08:37 Dose: 40 mg Documented by: Sodium Bicarbonate (Sodium Bicarbonate 650 Mg Tab) 650 mg PO BID ON LICENSE OF [facility] Last Admin: 07/11/21 10:45 Dose: 650 mg Documented by: Sodium Chloride (Sodium Chloride 0.9% 10 Ml Flush Syringe) 10 ml IV BID ON LICENSE OF [facility] Last Admin: 07/11/21 10:45 Dose: 10 ml Documented by: Sodium Chloride (Sodium Chloride 0.9% 10 Ml Flush Syringe) 10 ml IV PRN PRN PRN Reason: LINE FLUSH Sodium Polystyrene Sulfonate (Sodium Polystyrene 15 Gm/60 Ml Oral Liqd) 15 gm PO Q6HR PRN PRN Reason: Hyperkalemia Tiotropium [place] (Tiotropium 18 Mcg Cap Inhalation) 2 puff IH DAILY ON LICENSE OF [facility] Last Admin: 07/11/21 10:40 Dose: 2 puff Documented by: Warfarin Sodium (Warfarin 2 Mg Tab) 6 mg PO DAILY@1700 ON LICENSE OF [facility]; Protocol Review of Systems All systems: negative Constitutional: no weight loss, no weight gain, no fever, no chills Ears, nose, mouth and throat: no nose pain, no nasal congestion, no nasal discharge, no sinus pressure Cardiovascular: syncope, no chest pain, no orthopnea, no palpitations, no r apid/irregular heart beat, no edema Respiratory: no cough, no cough with sputum, no excessive sputum, no hemoptysis, no shortness of breath Gastrointestinal: vomiting, no abdominal pain, no nausea, no diarrhea Musculoskeletal: no neck pain, no shooting arm pain, no arm numbness/tingling Integumentary: no rash, no pruritis, no redness Neurological: syncope, no head injury, no transient paralysis, no paralysis Psychiatric: no anxiety, no memory loss, no change in sleep habits, no sleep disturbances Endocrine: no cold intolerance, no heat intolerance Hematologic/Lymphatic: no easy bruising, no easy bleeding Physical Examination Vital Signs Temp Pulse Resp BP Pulse Ox 100.3 F H 96 H 16 123/66 97 07/10/21 16:47 07/10/21 16:47 07/10/21 16:47 07/10/21 16:47 07/10/21 16:47 General appearance: no acute distress HEENT: Positive: PERRL Neck: Positive: trachea midline Cardiac: Positive: Reg Rate and Rhythm Lungs: Positive: Normal Breath Sounds Neuro: Positive: Grossly Intact Abdomen: Positive: Soft, Active Bowel Sounds Skin: Negative: Rash, Suspicious Lesions, Ulceration Extremities: Present: upper extr. pulses, lower extr. pulses. Absent: edema Results 07/11/21 04:36 07/11/21 04:36 Cardiac Enzymes 07/10/21 07/10/21 07/10/21 Range/Units 14:27 14:27 14:27 WBC 8.2 (4.5-11.0) K/mm3 RBC 4.01 (3.65-5.03) M/mm3 Hgb 11.9 (11.8-15.2) gm/dl Hct 36.0 (35.5-45.6) % MCV 90 (84-94) fl MCH 30 (28-32) pg MCHC 33 (32-34) % RDW 16.0 H (13.2-15.2) % Plt Count 171 (140-440) K/mm3 Lymph % (Auto) 4.8 L (13.4-35.0) % [place] % (Auto) 6.5 (0.0-7.3) % Eos % (Auto) 0.3 (0.0-4.3) % Baso % (Auto) 0.3 (0.0-1.8) % Lymph # (Auto) 0.4 L (1.2-5.4) K/mm3 [place] # (Auto) 0.5 (0.0-0.8) K/mm3 Eos # (Auto) 0.0 (0.0-0.4) K/mm3 Baso # (Auto) 0.0 (0.0-0.1) K/mm3 Seg Neutrophils % 88.1 H (40.0-70.0) % Seg Neutrophils # 7.2 (1.8-7.7) K/mm3 PT 23.6 H (12.2-14.9) Sec. INR 2.06 H (0.87-1.13) Sodium 135 L (137-145) mmol/L Potassium 5.0 (3.6-5.0) mmol/L Chloride 96.4 L (98-107) mmol/L Carbon Dioxide 23 (22-30) mmol/L Anion Gap 21 mmol/L BUN 36 H (9-20) mg/dL Creatinine 6.8 H (0.8-1.3) mg/dL Estimated GFR 10 ml/min BUN/Creatinine Ratio 5 % Glucose 100 (75-100) mg/dL Calcium 10.2 (8.4-10.2) mg/dL Magnesium 2.30 (1.7-2.3) mg/dL Total Bilirubin 0.40 (0.1-1.2) mg/dL ALT 13 (7-56) units/L Alkaline Phosphatase 62 (35-129) units/L Total Creatine Kinase 237 H (55-170) units/L Troponin T 0.131 H* (0.00-0.029) ng/mL NT-Pro-B Natriuret Pep 47851 H (0-900) pg/mL Total Protein 8.6 H (6.3-8.2) g/dL Albumin 4.2 (3.9-5) g/dL Albumin/Globulin Ratio 1.0 % Triglycerides 116 (2-149) mg/dL Cholesterol 176 (50-199) mg/dL LDL Cholesterol Direct 103 (50-130) mg/dL HDL Cholesterol 59 (40-59) mg/dL Cholesterol/HDL Ratio 2.98 % 07/11/21 07/11/21 07/11/21 Range/Units 04:36 04:36 04:36 WBC 12.3 H (4.5-11.0) K/mm3 RBC 3.60 L (3.65-5.03) M/mm3 Hgb 10.3 L (11.8-15.2) gm/dl Hct 32.2 L (35.5-45.6) % MCV 89 (84-94) fl MCH 29 (28-32) pg MCHC 32 (32-34) % RDW 16.1 H (13.2-15.2) % Plt Count 174 (140-440) K/mm3 Lymph % (Auto) 8.0 L (13.4-35.0) % [place] % (Auto) 8.6 H (0.0-7.3) % Eos % (Auto) 0.5 (0.0-4.3) % Baso % (Auto) 0.4 (0.0-1.8) % Lymph # (Auto) 1.0 L (1.2-5.4) K/mm3 [place] # (Auto) 1.1 H (0.0-0.8) K/mm3 Eos # (Auto) 0.1 (0.0-0.4) K/mm3 Baso # (Auto) 0.0 (0.0-0.1) K/mm3 Seg Neutrophils % 82.5 H (40.0-70.0) % Seg Neutrophils # 10.1 H (1.8-7.7) K/mm3 PT 24.4 H (12.2-14.9) Sec. INR 2.15 H (0.87-1.13) Sodium 135 L (137-145) mmol/L Potassium 5.9 H (3.6-5.0) mmol/L Chloride 95.4 L (98-107) mmol/L Carbon Dioxide 25 (22-30) mmol/L Anion Gap 21 mmol/L BUN 48 H (9-20) mg/dL Creatinine 9.0 H (0.8-1.3) mg/dL Estimated GFR 7 ml/min BUN/Creatinine Ratio 5 % Glucose 79 (75-100) mg/dL Calcium 9.5 (8.4-10.2) mg/dL Magnesium (1.7-2.3) mg/dL Total Bilirubin (0.1-1.2) mg/dL ALT (7-56) units/L Alkaline Phosphatase (35-129) units/L Total Creatine Kinase (55-170) units/L Troponin T (0.00-0.029) ng/mL NT-Pro-B Natriuret Pep (0-900) pg/mL Total Protein (6.3-8.2) g/dL Albumin (3.9-5) g/dL Albumin/Globulin Ratio % Triglycerides (2-149) mg/dL Cholesterol (50-199) mg/dL LDL Cholesterol Direct (50-130) mg/dL HDL Cholesterol (40-59) mg/dL Cholesterol/HDL Ratio % Coagulation 07/11/21 Range/Units 04:36 PT 24.4 H (12.2-14.9) Sec. INR 2.15 H (0.87-1.13) CBC 07/11/21 Range/Units 04:36 WBC 12.3 H (4.5-11.0) K/mm3 RBC 3.60 L (3.65-5.03) M/mm3 Hgb 10.3 L (11.8-15.2) gm/dl Hct 32.2 L (35.5-45.6) % Plt Count 174 (140-440) K/mm3 Lymph # (Auto) 1.0 L (1.2-5.4) K/mm3 [place] # (Auto) 1.1 H (0.0-0.8) K/mm3 Eos # (Auto) 0.1 (0.0-0.4) K/mm3 Baso # (Auto) 0.0 (0.0-0.1) K/mm3 Comprehensive Metabolic Panel 07/11/21 Range/Units 04:36 Sodium 135 L (137-145) mmol/L Potassium 5.9 H (3.6-5.0) mmol/L Chloride 95.4 L (98-107) mmol/L Carbon Dioxide 25 (22-30) mmol/L BUN 48 H (9-20) mg/dL Creatinine 9.0 H (0.8-1.3) mg/dL Glucose 79 (75-100) mg/dL Calcium 9.5 (8.4-10.2) mg/dL - Imaging and Cardiology Echo: report reviewed EKG: report reviewed, image reviewed EKG interpretations - Telemetry EKG Rhythm: Sinus Rhythm - EKG Sinus rhythms and dysrhythmias: sinus rhythm Ventricular dysrhythmias: ventricular premature com Chamber hypertrophy or enlargement: left ventricular hypertro Assessment and Plan Syncope PAF CAD s/p PCI HFpEF * EKG-sinus 87 with PVCs and LVH. no acute ischemic changes. * Patient has chronically elevated troponins. Troponins noted to be elevated but are lower than previous admissions. Patient has no cardiac complaints * Echo 03/14/2021- LVEF is 50-55%. Mild concentric left ventricular hypertrophy. Right ventricular systolic function is grossly normal. Right ventricle is hypokinetic. Right ventricle is mildly hypokinetic. Aortic valve is calcified. Mitral valve leaflets are calcified. The tricuspid valve is normal in structure. The pulmonary valve is normal in structure. IVC is normal in size and collapses >50% with inspiration. Mild to moderate circumferential pericardial effusion. Large left pleural effusion * Agree with metoprolol 50mg PO BID and clopidogrel * Anticoagulated on Coumadin * BNP elevated likely from need in HD ESRD * Nephrology following * Patient for HD per nephrology Patient seen in conjucntion with Dr. Ibanez who agrees with this plan of care. Will continue to follow - Patient Problems (1) Acute exacerbation of CHF (congestive heart failure) Current Visit: Yes Status: Acute (2) ESRD (end stage renal disease) Current Visit: Yes Status: Acute (3) Elevated troponin Current Visit: Yes Status: Acute (4) Pulmonary nodule Current Visit: Yes Status: Acute (5) Syncope and collapse Current Visit: Yes Status: Acute (6) Acute respiratory failure Current Visit: No Status: Acute (7) Hypotension Current Visit: No Status: Acute Qualifiers: Hypotension type: unspecified hypotension type Qualified Code(s): I95.9 - Hypotension, unspecified
[2021-07-11] MEDS ORDERED: WARFARIN 2 MG TAB PO SCH (17:00)
--- NOTE | 2021-07-11 17:52 | Progress Note ---
Assessment and Plan (1) Acute heart failure with preserved EF Current Visit: No Status: Acute Plan to address problem: Cardiology team consulted, strict I's/O, monitor urine output every shift, blood pressure control (2) End stage renal disease Current Visit: Yes Status: Acute Plan to address problem: Nephrology team consulted in ED, strict I's/O, avoid nephrotoxic agents, dialysis as per renal team. (3) Pulmonary nodule Current Visit: Yes Status: Acute Plan to address problem: Repeat CT scan in 3 months as outpatient. --Hyperkalemia (4) Syncope and collapse Current Visit: Yes Status: Acute Plan to address problem: Neuro check, seizure precautions, cardiology team consulted, telemetry monitoring, supportive care. (5) DVT prophylaxis Current Visit: Yes Status: Acute Plan to address problem: SCD to bilateral lower extremities while in bed, continue therapeutic anticoagul ation (6) Advance care planning Current Visit: Yes Status: Acute Plan to address problem: Disease education conducted, care plan discussed, diagnoses discussed, prognosis discussed, patient is full code. Patient knowledges understanding agreement with care plan, +30 minutes. Daily clinical course: 07/11/21: Patient seen and examined, plan for hemodialysis today.. BP running low-ordered for albumin. Plan for dialysis after albumin transfusion. Follow serum chemistry, cardiology consulted, will follow recommendation. PT eval, follow orthostatic vital Subjective Date of service: 07/11/21 Objective - Constitutional Vitals: Vital Signs - 12hr 07/11/21 07/11/21 07/11/21 06:00 06:31 07:01 Temperature Pulse Rate 66 57 L 73 Respiratory 18 18 17 Rate Blood Pressure 136/48 136/48 119/59 Blood Pressure [Right] O2 Sat by Pulse 98 98 100 Oximetry O2 Sat by Pulse Oximetry [ Posterior Bases ] 07/11/21 07/11/21 07/11/21 07:31 08:00 10:45 Temperature Pulse Rate 76 66 81 Respiratory 19 16 Rate Blood Pressure 119/59 119/59 86/50 Blood Pressure [Right] O2 Sat by Pulse 93 100 Oximetry O2 Sat by Pulse Oximetry [ Posterior Bases ] 07/11/21 07/11/21 07/11/21 10:49 11:34 13:28 Temperature 98.2 F Pulse Rate 81 88 Respiratory 18 22 Rate Blood Pressure Blood Pressure 86/50 96/47 [Right] O2 Sat by Pulse 100 100 96 Oximetry O2 Sat by Pulse Oximetry [ Posterior Bases ] 07/11/21 07/11/21 15:15 16:00 Temperature 98.2 F Pulse Rate 88 62 Respiratory 24 18 Rate Blood Pressure 145/70 Blood Pressure 129/66 [Right] O2 Sat by Pulse 100 Oximetry O2 Sat by Pulse 100 Oximetry [ Posterior Bases ] - Labs CBC & Chem 7: 07/11/21 04:36 07/11/21 04:36 Labs: Abnormal lab results 07/11/21 07/11/21 07/11/21 Range/Units 04:36 04:36 04:36 WBC 12.3 H (4.5-11.0) K/mm3 RBC 3.60 L (3.65-5.03) M/mm3 Hgb 10.3 L (11.8-15.2) gm/dl Hct 32.2 L (35.5-45.6) % RDW 16.1 H (13.2-15.2) % Lymph % (Auto) 8.0 L (13.4-35.0) % [place] % (Auto) 8.6 H (0.0-7.3) % Lymph # (Auto) 1.0 L (1.2-5.4) K/mm3 [place] # (Auto) 1.1 H (0.0-0.8) K/mm3 Seg Neutrophils % 82.5 H (40.0-70.0) % Seg Neutrophils # 10.1 H (1.8-7.7) K/mm3 PT 24.4 H (12.2-14.9) Sec. INR 2.15 H (0.87-1.13) Sodium 135 L (137-145) mmol/L Potassium 5.9 H (3.6-5.0) mmol/L Chloride 95.4 L (98-107) mmol/L BUN 48 H (9-20) mg/dL Creatinine 9.0 H (0.8-1.3) mg/dL HEART Score - HEART Score Troponin: Troponin T 0.131 ng/mL (0.00-0.029) H* 07/10/21 14:27
[2021-07-11 20:34] LABS: Hepatitis C Virus Antibody Non-Reactive (NonReactive)
[2021-07-11 21:01] LABS: Hepatitis B Surface Antigen Nonreactive (Negative)
[2021-07-12] MEDS ORDERED: ALBUMIN HUMAN 25% (25 GM/100 ML) INJ IV ONE (01:29)
[2021-07-12 06:03] LABS: Basophils % (Auto) 0.6 % (0.0-1.8); Eosinophils # (Auto) 0.2 K/mm3 (0.0-0.4); Hematocrit 36.3 % (35.5-45.6); Hemoglobin 12.1 gm/dl (11.8-15.2); Lymphocytes # (Auto) 0.8 K/mm3 (1.2-5.4); Lymphocytes % (Auto) 10.9 % (13.4-35.0); Mean Corpuscular HGB Conc 33 % (32-34); Mean Corpuscular Volume 88 fl (84-94); Monocytes # (Auto) 0.8 K/mm3 (0.0-0.8); Monocytes % (Auto) 10.9 % (0.0-7.3); Platelet Count 177 K/mm3 (140-440); Red Blood Count 4.15 M/mm3 (3.65-5.03); Red Cell Distribution Width 15.4 % (13.2-15.2)
[2021-07-12 06:11] LABS: INR 1.4 (0.87-1.13)
[2021-07-12 06:18] LABS: Calcium 10.3 mg/dL (8.4-10.2)
--- NOTE | 2021-07-12 09:41 | Progress Note ---
Assessment and Plan Impression * End-stage renal disease on maintenance hemodialysis * Hyperkalemia * Mild volume overload * COPD * Syncope * Coronary artery disease. Status post stent placement * Hypertension Recommendations * Patient had uneventful hemodialysis yesterday. * Hyperkalemia has been corrected and his shortness of breath is also better. * Continue dialysis on TTS schedule for now . His outpatient days are however MWF * Adjust diet and meds for ESRD state * Avoid nephrotoxins * Monitor fluid status and electrolytes closely * No IV, BP or venipuncture in his access arm * Cardiology notes appreciated Subjective Date of service: 07/12/21 Interval history: Patient is comfortable. Shortness of breath is better. Uneventful hemodialysis yesterday. Required intravenous albumin for blood pressure support. Objective - Vital Signs Vital signs: Vital Signs - 12hr 07/11/21 07/12/21 07/12/21 22:32 00:37 02:51 Blood Pressure 95/56 112/76 94/58 07/12/21 07/12/21 04:37 05:50 Blood Pressure 112/61 116/61 - General Appearance General appearance: well-developed, well-nourished, appears stated age EENT: PERRL, mucous membranes moist Neck: no JVD, no thyromegaly Respiratory: Present: Clear to Ascultation Cardiology: irregularly irregular Gastrointestinal: normal, normoactive bowel sounds Integumentary: no rash, other (AV fistula left forearm. Good bruit and thrill.) - Lab 07/12/21 05:28 07/12/21 05:28 Most recent lab results Calcium 10.3 mg/dL (8.4-10.2) H 07/12/21 05:28 Magnesium 2.30 mg/dL (1.7-2.3) 07/10/21 14:27 Medications & Allergies - Medications Allergies/Adverse Reactions: Allergies atorvastatin calcium [From Lipitor] Allergy (Mild, Verified 02/12/21 10:43) Unknown ACHES, RASH ciprofloxacin [From Cipro] Allergy (Mild, Verified 09/23/20 12:30) Bleeding NOSE BLEED ciprofloxacin HCl [From Cipro] Allergy (Mild, Verified 09/23/20 12:30) Bleeding NOSE BLEED simvastatin Allergy (Mild, Verified 09/23/20 12:30) Unknown ACHES Home Medications: Home Medications Medication Instructions Recorded Confirmed Last Taken Type ALBUTEROL NEB's [Proventil 0.083% 2.5 mg IH Q6HRT PRN #50 nebu 09/28/20 04/25/21 04/23/21 Rx NEBS] AtorvaSTATin 10 mg PO QHS #30 tablet 09/28/20 04/25/21 04/22/21 Rx Budesonide [Pulmicort Respules] 0.5 mg IH Q12HRT #30 nebu 09/28/20 04/25/21 04/22/21 Rx Epoetin Eric 10,000 Unit [Procrit] 10,000 unit IV LIZANDRO PRN vial 09/28/20 04/24/21 02/28/21 12:39 Rx Ipratropium/Albuterol Sulfate 1 ampul IH TIDRT #50 ampul.neb 09/28/20 04/25/21 04/22/21 Rx [DUONEB *Not for PRN Use*] Sodium Bicarbonate 650 mg PO BID #60 09/28/20 04/25/21 04/23/21 Rx Tiotropium [Spiriva] 2 puff IH DAILY 30 Days #1 cap 09/28/20 04/25/21 04/23/21 Rx Clopidogrel [Plavix] 75 mg PO QDAY tablet 02/13/21 04/25/21 04/22/21 Rx Cholecalciferol Vit D3 [Vitamin D3 1,000 unit PO DAILY tablet 03/03/21 04/25/21 04/23/21 Rx 1,000 UNIT TAB] Lanthanum Carbonate [Fosrenol] 1,000 mg PO BIDAC tab.chew 03/03/21 04/25/21 04/23/21 Rx Pantoprazole [Protonix TAB] 40 mg PO QDAC tablet 03/03/21 04/25/21 04/23/21 Rx Metoprolol [Lopressor TAB] 50 mg PO BID #60 tablet 03/16/21 04/25/21 04/23/21 Rx Warfarin [Coumadin] 6 mg PO DAILY@1700 #60 tablet 04/26/21 Unknown Rx guaiFENesin/DEXTROMETHORPHAN 237 ml PO QID PRN 14 Days #1 bottle 04/26/21 Unknown Rx [Robitussin Cough-Chest Dm Liq] Active Medications: Generic Name Dose Route Start Last Admin Trade Name Freq PRN Reason Stop Dose Admin Acetaminophen 650 mg 07/10/21 18:51 Acetaminophen 325 Mg Tab PO Q4H PRN Pain MILD(1-3)/Fever >100.5/STOLL Albuterol 2.5 mg 07/10/21 18:51 Albuterol 2.5 Mg/3 Ml Nebu IH Q4HRT PRN Shortness Of Breath Atorvastatin Calcium 10 mg 07/10/21 22:00 07/11/21 22:28 Atorvastatin 10 Mg Tab PO 10 mg QHS DARNELL Administration Cholecalciferol 1,000 unit 07/11/21 10:00 07/11/21 10:41 Cholecalciferol (Vit D3) 1000 Unit (25 Mcg) Tab PO 1,000 unit DAILY DARNELL Administration Clopidogrel Bisulfate 75 mg 07/11/21 10:00 07/11/21 10:41 Clopidogrel 75 Mg Tab PO 75 mg QDAY DARNELL Administration Guaifenesin 10 ml 07/10/21 18:55 Guaifenesin Dm 200/20 Mg Oral Liqd 10 Ml PO Q6H PRN Cough Hydromorphone HCl 0.5 mg 07/10/21 18:51 Hydromorphone 1 Mg/1 Ml Inj IV Q12H PRN Pain , Severe (7-10) Sodium Chloride 100 mls @ 999 mls/hr 07/11/21 10:30 Nacl 0.9% IV LIZANDRO PRN Hypotension Lanthanum Carbonate 1,000 mg 07/11/21 07:30 07/11/21 17:32 Lanthanum Carbonate 500 Mg Tab PO Not Given BIDAC DARNELL Metoprolol Tartrate 50 mg 07/10/21 22:00 07/11/21 22:32 Metoprolol Tartrate 50 Mg Tab PO Not Given BID DARNELL Ondansetron HCl 4 mg 07/10/21 18:51 Ondansetron 4 Mg/2 Ml Inj IV Q8H PRN Nausea And Vomiting Oxycodone/Acetaminophen 1 tab 07/10/21 18:51 Oxycodone /Acetaminophen 5-325mg Tab PO Q12H PRN Pain, Moderate (4-6) Pantoprazole Sodium 40 mg 07/11/21 07:30 07/11/21 08:37 Pantoprazole 40 Mg Tab PO 40 mg QDAC DARNELL Administration Sodium Bicarbonate 650 mg 07/10/21 22:00 07/11/21 22:27 Sodium Bicarbonate 650 Mg Tab PO 650 mg BID DARNELL Administration Sodium Chloride 10 ml 07/10/21 22:00 07/11/21 22:33 Sodium Chloride 0.9% 10 Ml Flush Syringe IV 10 ml BID DARNELL Administration Sodium Chloride 10 ml 07/10/21 18:51 Sodium Chloride 0.9% 10 Ml Flush Syringe IV PRN PRN LINE FLUSH Sodium Polystyrene Sulfonate 15 gm 07/11/21 11:32 Sodium Polystyrene 15 Gm/60 Ml Oral Liqd PO Q6HR PRN Hyperkalemia Tiotropium [place] 2 puff 07/11/21 10:00 07/11/21 10:40 Tiotropium 18 Mcg Cap Inhalation IH 2 puff DAILY DARNELL Administration Warfarin Sodium 6 mg 07/11/21 17:00 07/11/21 22:27 Warfarin 2 Mg Tab PO 6 mg DAILY@1700 DARNELL Administration Protocol
--- NOTE | 2021-07-12 10:55 | Electrocardiograph Report ---
[facility] Test Date: 2021-07-10 Test Time: 18:05:41 Pat Name: DAISY PABON Department: Room: [place] [address] Gender: M Criminal Investigative Agent: MIRIAN : 1940 Requested By: NOHEMI YOUNG Order Number: [id number] Reading MD: Hira Samuel Measurements Intervals [place] Rate: 87 P: 62 SC: 160 QRS: -48 QRSD: 97 T: 117 QT: 374 QTc: 450 Interpretive Statements Sinus rhythm Multiple premature complexes, vent & supraven Left atrial enlargement Left anterior fascicular block LVH with secondary repolarization abnormality Compared to ECG 04/23/2021 16:02:08 T-wave abnormality are present in lateral leads. ST (T wave) deviation no longer present Electronically Signed On 07-12-2021 10:54:47 EDT by Hira Samuel
[2021-07-12] MEDS: TIOTROPIUM 18 MCG CAP INHALATION IH SCH (11:57)
[2021-07-12] MEDS: SODIUM BICARBONATE 650 MG TAB PO SCH (11:58)
[2021-07-12] MEDS: LANTHANUM CARBONATE 500 MG TAB PO SCH (11:58)
--- NOTE | 2021-07-12 12:33 | Progress Note ---
Assessment and Plan Syncope PAF CAD s/p PCI HFpEF * EKG-sinus 87 with PVCs and LVH. no acute ischemic changes. * Patient has chronically elevated troponins. Troponins noted to be elevated but are lower than previous admissions. Patient has no cardiac complaints * Echo 03/14/2021- LVEF is 50-55%. Mild concentric left ventricular hypertrophy. Right ventricular systolic function is grossly normal. Right ventricle is hypokinetic. Right ventricle is mildly hypokinetic. Aortic valve is calcified. Mitral valve leaflets are calcified. The tricuspid valve is normal in structure. The pulmonary valve is normal in structure. IVC is normal in size and collapses >50% with inspiration. Mild to moderate circumferential pericardial effusion. Large left pleural effusion * Agree with metoprolol 50mg PO BID and clopidogrel * Anticoagulated on Coumadin * BNP elevated likely from need from HD ESRD * Nephrology following * Patient for HD yesterday From cardiac perspective patient is stable and ok for discharge. Patient may follow up with Dr. West, [facility], on 07/31/2021 at 1:45pm at our [place] location. Patient seen in conjucntion with Dr. Ibanez who agrees with this plan of care. Will see as needed - Patient Problems (1) Acute exacerbation of CHF (congestive heart failure) Current Visit: Yes Status: Acute (2) ESRD (end stage renal disease) Current Visit: Yes Status: Acute (3) Elevated troponin Current Visit: Yes Status: Acute (4) Pulmonary nodule Current Visit: Yes Status: Acute (5) Syncope and collapse Current Visit: Yes Status: Acute (6) Acute respiratory failure Current Visit: No Status: Acute (7) Hypotension Current Visit: No Status: Acute Qualifiers: Hypotension type: unspecified hypotension type Qualified Code(s): I95.9 - Hypotension, unspecified Subjective Date of service: 07/12/21 Principal diagnosis: ESRD, volume overload Interval history: Patient resting in bed with no complaints. Expresses desire to go home Patient not on monitor at time of interview Objective Last Vital Signs Temp 98.0 F 07/11/21 19:50 Pulse 80 07/11/21 19:50 Resp 20 07/11/21 20:00 BP 116/61 07/12/21 05:50 Pulse Ox 98 07/11/21 20:00 - Physical Examination General: No Apparent Distress HEENT: Positive: PERRL Neck: Positive: trachea midline Cardiac: Positive: Reg Rate and Rhythm Lungs: Positive: Normal Breath Sounds Neuro: Positive: Grossly Intact Abdomen: Positive: Soft, Active Bowel Sounds Skin: Negative: Rash, Suspicious Lesions, Ulceration Extremities: Present: upper extr. pulses, lower extr. pulses. Absent: edema - Labs and Meds Coagulation 07/12/21 Range/Units 05:28 PT 17.6 H (12.2-14.9) Sec. INR 1.40 H (0.87-1.13) CBC 07/12/21 Range/Units 05:28 WBC 7.8 (4.5-11.0) K/mm3 RBC 4.15 (3.65-5.03) M/mm3 Hgb 12.1 (11.8-15.2) gm/dl Hct 36.3 (35.5-45.6) % Plt Count 177 (140-440) K/mm3 Lymph # (Auto) 0.8 L (1.2-5.4) K/mm3 [place] # (Auto) 0.8 (0.0-0.8) K/mm3 Eos # (Auto) 0.2 (0.0-0.4) K/mm3 Baso # (Auto) 0.0 (0.0-0.1) K/mm3 Comprehensive Metabolic Panel 07/11/21 07/12/21 Range/Units 19:35 05:28 Sodium 140 (137-145) mmol/L Potassium 6.0 H 4.4 D (3.6-5.0) mmol/L Chloride 93.1 L (98-107) mmol/L Carbon Dioxide 31 H (22-30) mmol/L BUN 27 H (9-20) mg/dL Creatinine 6.1 H (0.8-1.3) mg/dL Glucose 91 (75-100) mg/dL Calcium 10.3 H (8.4-10.2) mg/dL - Imaging and Cardiology EKG: report reviewed, image reviewed Echo: report reviewed - Telemetry EKG Rhythm: Sinus Rhythm - EKG Sinus rhythms and dysrhythmias: sinus rhythm Ventricular dysrhythmias: ventricular premature com Chamber hypertrophy or enlargement: left ventricular hypertro
[2021-07-12] MEDS: METOPROLOL TARTRATE 50 MG TAB PO SCH (12:51)
[2021-07-12] MEDS: PANTOPRAZOLE 40 MG TAB PO SCH (12:51)
[2021-07-12] MEDS: CLOPIDOGREL 75 MG TAB PO SCH (12:51)
[2021-07-12] MEDS: CHOLECALCIFEROL (VIT D3) 1000 UNIT (25 mcg) TAB PO SCH (12:52)
--- NOTE | 2021-07-12 13:58 | Discharge Summary ---
Providers - Providers Date of Admission: 07/11/21 15:55 Date of discharge: 07/12/21 Attending physician: GLORIA COX 07/10/21 18:38 Consult to Physician [CONS] Routine Comment: Consulting Provider: HU HUFF Physician Instructions: Reason For Exam: ESRD on HD 07/11/21 09:47 Consult to Physician [CONS] Routine Comment: Consulting Provider: CHALINO MONGE Physician Instructions: Reason For Exam: SYNCOPE 07/11/21 17:52 Physical Therapy Evaluation and Treat [CONS] Routine Comment: Reason For Exam: Debility Primary care physician: INDEPENDENT DISTRIBUTOR Hospitalization Condition: Serious Disposition: HOME HEALTH CARE SERVICE Final Discharge Diagnosis (Prints w/discharge instructions): Syncope, likely vasovagal from hypotension. PAF, on coumadin. CAD s/p PCI. HFpEF. ESRD on HD Time spent for discharge: 34 minutes Core Measure Documentation - Palliative Care Palliative Care/ Comfort Measures: Not Applicable - Core Measures Any of the following diagnoses?: heart failure - Heart Failure Discharge Requirements Reason for no SHAUNA/ARB: Renal impairment Beta leanna at discharge: Yes Exam - Constitutional Vitals: Temp Pulse Resp BP Pulse Ox 98.0 F 75 12 103/55 98 07/11/21 19:50 07/12/21 12:01 07/12/21 12:01 07/12/21 12:01 07/11/21 20:00 Plan Activity: advance as tolerated Weight Bearing Status: Non-Weight Bearing Diet: renal Special Instructions: restrict fluid intake to (1.2 L per day) Forms: Warfarin Discharge Instruction
[2021-07-12 15:10] VITALS: BP 115/63
== END 2021-07-12 15:30 | disposition home or self-care (01) ==
LOC: ED 14:15 → 4A 18:51 → UNDOADMOB 18:51 → OBSVTOIN 07-11 15:55 → INTOOBSV 07-11 15:55 → ED 07-12 15:30
DX: I13.2 Hypertensive heart and chronic kidney disease with heart failure and with stage 5 chronic kidney disease, or end stage renal disease (principal); N18.6 End stage renal disease; I50.9 Heart failure, unspecified; R55 Syncope and collapse; M19.90 Unspecified osteoarthritis, unspecified site; J45.909 Unspecified asthma, uncomplicated; R74.8 Abnormal levels of other serum enzymes; Z98.890 Other specified postprocedural states; Z87.891 Personal history of nicotine dependence
CPT/HCPCS: 36415; 70450; 71045; 72125; 74176; 80048; 80053; 80061; 80074; 82550; 83735; 83880; 84132; 84484; 85025; 85610; 93005; 94640; 96365; 96366; 97161; A9270; P9047; 99285; G0378

== ENCOUNTER 2022-02-28 03:20 | Inpatient (IN) | payer MEDICARE, OTHER ==
[2022-02-28] MEDS ORDERED: ALBUTEROL 2.5 MG/3 ML NEBU IH ONE (03:35)
[2022-02-28] MEDS ORDERED: IPRATROPIUM 0.02% NEBU 2.5 ML IH ONE (03:35)
[2022-02-28] MEDS ORDERED: methylPREDNISolone Sod Succinate 125 MG/2 ML INJ IV ONE (03:35)
[2022-02-28 04:05] LABS: Basophils % (Auto) 0.4 % (0.0-1.8); Eosinophils # (Auto) 0.1 K/mm3 (0.0-0.4); Eosinophils % (Auto) 0.9 % (0.0-4.3); Hematocrit 32.2 % (35.5-45.6); Hemoglobin 10.1 gm/dl (11.8-15.2); Lymphocytes % (Auto) 8.3 % (13.4-35.0); Mean Corpuscular HGB Conc 31 % (32-34); Mean Corpuscular Volume 88 fl (84-94); Monocytes # (Auto) 0.9 K/mm3 (0.0-0.8); Monocytes % (Auto) 7.2 % (0.0-7.3); Platelet Count 219 K/mm3 (140-440); Red Blood Count 3.67 M/mm3 (3.65-5.03); Red Cell Distribution Width 15.7 % (13.2-15.2)
[2022-02-28 04:13] LABS: INR 2.8 (0.87-1.13)
[2022-02-28 04:34] LABS: Creatine Kinase MB 7.2 ng/mL (0.0-4.0)
[2022-02-28 04:35] LABS: Alanine Aminotransferase 12 units/L (7-56); Albumin 4.3 g/dL (3.9-5); Blood Urea Nitrogen 61 mg/dL (9-20); Hemolysis Index 20
[2022-02-28 04:37] LABS: BUN/Creatinine Ratio 6
--- NOTE | 2022-02-28 04:42 | XRay Report ---
CHEST 1 VIEW 02/28/2022 3:30 AM INDICATION / CLINICAL INFORMATION: Dyspnea. COMPARISON: One view of the chest from 07/10/2021. FINDINGS: SUPPORT DEVICES: None. HEART / MEDIASTINUM: No significant abnormality. LUNGS / PLEURA: No significant pulmonary abnormality. No significant pleural effusion. No pneumothora x. ADDITIONAL FINDINGS: No significant additional findings. IMPRESSION: 1. No acute abnormality of the chest. Signer Name: Pascual Casarez MD Signed: 02/28/2022 4:37 AM Workstation Name: [id number]
[2022-02-28 05:09] LABS: ABG Base Excess -1.1 mmol/L (-2.0-3.0); ABG HCO3 23.9 mmol/L (20.0-26.0); ABG Methemoglobin 0.4 % (0.0-1.5); ABG PCO2 41.2 mm Hg; ABG PH 7.381 pH Units (7.350-7.450); ABG PO2 91.3 mm Hg (80.0-90.0)
--- NOTE | 2022-02-28 05:17 | Emergency Department Report ---
ED Shortness of Breath HPI - General Chief Complaint: Dyspnea/Respdistress Stated Complaint: DESTINEE Time Seen by Provider: 02/28/22 03:32 Source: patient, family Mode of arrival: Wheelchair Limitations: No Limitations - History of Present Illness Initial Comments: PT C/O DIFFICULTY IN BREATHING AND COUGH X 7 DAYS. PT REPORTS HX OF SD X 2 RESULTING IN 4 CARDIAC STENTS IN 2009, ALSO HX OF COPD REQUIRING NC O2 AT 3-4 LT PRN AT HOME. PT DENIES CP AT THIS TIME. -: Gradual, days(s) Pain Scale: 5 Consistency: intermittent Improves With: oxygen Worsens With: exertion Known History Of: COPD, congestive heart failure - Related Data Previous Rx's Medication Instructions Recorded Last Taken Type ALBUTEROL NEB's [Proventil 0.083% 2.5 mg IH Q6HRT PRN #50 nebu 09/28/20 04/23/21 Rx NEBS] AtorvaSTATin 10 mg PO QHS #30 tablet 09/28/20 04/22/21 Rx Budesonide [Pulmicort Respules] 0.5 mg IH Q12HRT #30 nebu 09/28/20 04/22/21 Rx Epoetin Eric 10,000 Unit [Procrit] 10,000 unit IV LIZANDRO PRN vial 09/28/20 02/28/21 12:39 Rx Ipratropium/Albuterol Sulfate 1 ampul IH TIDRT #50 ampul.neb 09/28/20 04/22/21 Rx [DUONEB *Not for PRN Use*] Sodium Bicarbonate 650 mg PO BID #60 09/28/20 04/23/21 Rx Tiotropium [Spiriva] 2 puff IH DAILY 30 Days #1 cap 09/28/20 04/23/21 Rx Clopidogrel [Plavix] 75 mg PO QDAY tablet 02/13/21 04/22/21 Rx Cholecalciferol Vit D3 [Vitamin D3 1,000 unit PO DAILY tablet 03/03/21 04/23/21 Rx 1,000 UNIT TAB] Lanthanum Carbonate [Fosrenol] 1,000 mg PO BIDAC tab.chew 03/03/21 04/23/21 Rx Pantoprazole [Protonix TAB] 40 mg PO QDAC tablet 03/03/21 04/23/21 Rx Metoprolol [Lopressor TAB] 50 mg PO BID #60 tablet 03/16/21 04/23/21 Rx Warfarin [Coumadin] 6 mg PO DAILY@1700 #60 tablet 04/26/21 Unknown Rx guaiFENesin/DEXTROMETHORPHAN 237 ml PO QID PRN 14 Days #1 bottle 04/26/21 Unknown Rx [Robitussin Cough-Chest Dm Liq] Allergies Allergy/AdvReac Type Severity Reaction Status Date / Time atorvastatin calcium Allergy Mild Unknown Verified 02/12/21 10:43 [From Lipitor] ciprofloxacin [From Cipro] Allergy Mild Bleeding Verified 09/23/20 12:30 ciprofloxacin HCl Allergy Mild Bleeding Verified 09/23/20 12:30 [From Cipro] simvastatin Allergy Mild Unknown Verified 09/23/20 12:30 ED Review of Systems ROS: Stated complaint: DESTINEE Other details as noted in HPI Constitutional: denies: chills, fever Eyes: denies: eye pain, eye discharge, vision change ENT: denies: ear pain, throat pain Respiratory: denies: cough, shortness of breath, wheezing Cardiovascular: denies: chest pain, palpitations Endocrine: no symptoms reported Gastrointestinal: denies: abdominal pain, nausea, diarrhea Genitourinary: denies: urgency, dysuria Musculoskeletal: denies: back pain, joint swelling, arthralgia Skin: denies: rash, lesions Neurological: denies: headache, weakness, paresthesias Psychiatric: denies: anxiety, depression Hematological/Lymphatic: denies: easy bleeding, easy bruising ED Past Medical Hx - Past Medical History Hx Hypertension: Yes Hx Heart Attack/AMI: Yes (x2; 2009) Hx Congestive Heart Failure: Yes Hx Diabetes: No Hx Liver Disease: No Hx Renal Disease: Yes (dialysis MWF fistula L FA) Hx Arthritis: Yes Hx Seizures: No Hx Asthma: Yes Hx COPD: Yes Hx HIV: No Additional medical history: anemia - Surgical History Hx Coronary Stent: Yes Hx Pacemaker: No Hx Internal Defibrillator: No - Social History Smoking Status: Former Smoker - Medications Home Medications: Home Medications Medication Instructions Recorded Confirmed Last Taken Type ALBUTEROL NEB's [Proventil 0.083% 2.5 mg IH Q6HRT PRN #50 nebu 09/28/20 04/25/21 04/23/21 Rx NEBS] AtorvaSTATin 10 mg PO QHS #30 tablet 09/28/20 04/25/21 04/22/21 Rx Budesonide [Pulmicort Respules] 0.5 mg IH Q12HRT #30 nebu 09/28/20 04/25/21 04/22/21 Rx Epoetin Eric 10,000 Unit [Procrit] 10,000 unit IV LIZANDRO PRN vial 09/28/20 04/24/21 02/28/21 12:39 Rx Ipratropium/Albuterol Sulfate 1 ampul IH TIDRT #50 ampul.neb 09/28/20 04/25/21 04/22/21 Rx [DUONEB *Not for PRN Use*] Sodium Bicarbonate 650 mg PO BID #60 09/28/20 04/25/21 04/23/21 Rx Tiotropium [Spiriva] 2 puff IH DAILY 30 Days #1 cap 09/28/20 04/25/21 04/23/21 Rx Clopidogrel [Plavix] 75 mg PO QDAY tablet 02/13/21 04/25/21 04/22/21 Rx Cholecalciferol Vit D3 [Vitamin D3 1,000 unit PO DAILY tablet 03/03/21 04/25/21 04/23/21 Rx 1,000 UNIT TAB] Lanthanum Carbonate [Fosrenol] 1,000 mg PO BIDAC tab.chew 03/03/21 04/25/21 04/23/21 Rx Pantoprazole [Protonix TAB] 40 mg PO QDAC tablet 03/03/21 04/25/21 04/23/21 Rx Metoprolol [Lopressor TAB] 50 mg PO BID #60 tablet 03/16/21 04/25/21 04/23/21 Rx Warfarin [Coumadin] 6 mg PO DAILY@1700 #60 tablet 04/26/21 Unknown Rx guaiFENesin/DEXTROMETHORPHAN 237 ml PO QID PRN 14 Days #1 bottle 04/26/21 Unknown Rx [Robitussin Cough-Chest Dm Liq] ED Physical Exam - General Limitations: No Limitations General appearance: alert - Head Head exam: Present: atraumatic, normocephalic - Eye Eye exam: Present: normal appearance - ENT ENT exam: Present: mucous membranes moist - Neck Neck exam: Present: normal inspection - Respiratory Respiratory exam: Present: rales. Absent: respiratory distress - Cardiovascular Cardiovascular Exam: Present: normal rhythm, irregular rhythm. Absent: systolic murmur, diastolic murmur, rubs, gallop - GI/Abdominal GI/Abdominal exam: Present: soft, normal bowel sounds - Rectal Rectal exam: Present: deferred - Extremities Exam Extremities exam: Present: normal inspection - Back Exam Back exam: Present: normal inspection - Neurological Exam Neurological exam: Present: alert, oriented X3 - Psychiatric Psychiatric exam: Present: normal affect, normal mood - Skin Skin exam: Present: warm, dry, intact, normal color. Absent: rash ED Course Vital Signs 02/28/22 02/28/22 02/28/22 03:25 03:29 03:35 Temperature 98.4 F Pulse Rate 84 Pulse Rate [ Bilateral Throughout] Respiratory 18 Rate Respiratory Rate [Bilateral Throughout] Blood Pressure 132/81 Blood Pressure [Right] O2 Sat by Pulse 96 97 98 Oximetry 02/28/22 02/28/22 02/28/22 03:41 04:04 05:15 Temperature 97.8 F Pulse Rate 89 Pulse Rate [ 91 H Bilateral Throughout] Respiratory 22 22 Rate Respiratory 22 Rate [Bilateral Throughout] Blood Pressure Blood Pressure 116/75 [Right] O2 Sat by Pulse 98 98 Oximetry ED Medical Decision Making - Lab Data Result diagrams: 02/28/22 03:41 02/28/22 03:41 - EKG Data -: EKG Interpreted by Me - EKG Data Interpretation: other (afib with cvr ) - Radiology Data Radiology results: report reviewed, image reviewed - Medical Decision Making rt given steriods, work up showed levated trop , will admit for nstemi Critical care attestation.: If time is entered above; I have spent that time in minutes in the direct care of this critically ill patient, excluding procedure time. ED Disposition Clinical Impression: SOB (shortness of breath), COPD (chronic obstructive pulmonary disease), ESRD on hemodialysis, Acute exacerbation of chronic obstructive pulmonary disease (COPD), NSTEMI (non-ST elevation myocardial infarction) Disposition: 09 ADMITTED INPATIENT Is pt being admited?: Yes Does the pt Need Aspirin: Yes Condition: Stable Instructions: Chronic Obstructive Pulmonary Disease (ED) Referrals: PRIMARY CARE, [Primary Care Provider] - 3-5 Days
[2022-02-28 06:41] LABS: Chol/HDL Ratio 2.72 %; HDL Cholesterol 54 mg/dL (40-59); LDL Cholesterol,Direct 73 mg/dL (50-130)
[2022-02-28] MEDS ORDERED: ACETYLCYSTEINE IH NR (08:05)
[2022-02-28] MEDS ORDERED: DEXTROMETHORPHAN PO PRN (08:07)
[2022-02-28] MEDS ORDERED: GUAIFENESIN PO PRN (08:07)
[2022-02-28] MEDS ORDERED: EPOETIN ALFA IV PRN (08:07)
[2022-02-28] MEDS ORDERED: [UNRECOGNIZED DRUG - OTHER] PO PRN (08:07)
--- NOTE | 2022-02-28 08:07 | History and Physical Report ---
History of Present Illness Date of examination: 02/28/22 Date of admission: 02/28/22 Chief complaint: Shortness of breath and cough History of present illness: Patient is 81 YO Male with COPD, CAD, S/P Stent Placement, HLD, ESRD on HD M/W/F, HTN, Paroxysmal Atrial Fibrillation currently on therapeutic anticoagulation with Coumadin, [place], Diastolic CHF, OA, COPD chronic hypoxia on home oxygen [facility] to [facility] ED today with complaint of persistent cough that has been ongoing for the past week with sensation of phlegm stuck at the back of his throat. He also reports worsening shortness of breath he is normally on 4 to 5 L of oxygen at home but last night had to go up to 8 L prior to presenting to the ED. in the ED he was given steroids and nebulizer treatment and placed on a full Venturi mask. His saturation is 100% at the time I came to evaluate him. He denies any fever nausea vomiting or diarrhea he denies any chest pain or leg swelling. He denies any change in his medications or diet at this time. He reports compliance with his dialysis. Past History Past Medical History: atrial fib, CAD, COPD, ESRD, GERD, hypertension, hyperlipidemia Past Surgical History: Other (Dialysis fistula) Social history: , full code Family history: no significant family history Medications and Allergies Allergies Allergy/AdvReac Type Severity Reaction Status Date / Time atorvastatin calcium Allergy Mild Unknown Verified 02/12/21 10:43 [From Lipitor] ciprofloxacin [From Cipro] Allergy Mild Bleeding Verified 09/23/20 12:30 ciprofloxacin HCl Allergy Mild Bleeding Verified 09/23/20 12:30 [From Cipro] simvastatin Allergy Mild Unknown Verified 09/23/20 12:30 Home Medications Medication Instructions Recorded Confirmed Last Taken Type ALBUTEROL NEB's [Proventil 0.083% 2.5 mg IH Q6HRT PRN #50 nebu 09/28/20 04/25/21 04/23/21 Rx NEBS] AtorvaSTATin 10 mg PO QHS #30 tablet 09/28/20 04/25/21 04/22/21 Rx Budesonide [Pulmicort Respules] 0.5 mg IH Q12HRT #30 nebu 09/28/20 04/25/21 04/22/21 Rx Epoetin Eric 10,000 Unit [Procrit] 10,000 unit IV LIZANDRO PRN vial 09/28/20 04/24/21 02/28/21 12:39 Rx Ipratropium/Albuterol Sulfate 1 ampul IH TIDRT #50 ampul.neb 09/28/20 04/25/21 04/22/21 Rx [DUONEB *Not for PRN Use*] Sodium Bicarbonate 650 mg PO BID #60 09/28/20 04/25/21 04/23/21 Rx Tiotropium [Spiriva] 2 puff IH DAILY 30 Days #1 cap 09/28/20 04/25/21 04/23/21 Rx Clopidogrel [Plavix] 75 mg PO QDAY tablet 02/13/21 04/25/21 04/22/21 Rx Cholecalciferol Vit D3 [Vitamin D3 1,000 unit PO DAILY tablet 03/03/21 04/25/21 04/23/21 Rx 1,000 UNIT TAB] Lanthanum Carbonate [Fosrenol] 1,000 mg PO BIDAC tab.chew 03/03/21 04/25/21 04/23/21 Rx Pantoprazole [Protonix TAB] 40 mg PO QDAC tablet 03/03/21 04/25/21 04/23/21 Rx Metoprolol [Lopressor TAB] 50 mg PO BID #60 tablet 03/16/21 04/25/21 04/23/21 Rx Warfarin [Coumadin] 6 mg PO DAILY@1700 #60 tablet 04/26/21 Unknown Rx guaiFENesin/DEXTROMETHORPHAN 237 ml PO QID PRN 14 Days #1 bottle 04/26/21 Unknown Rx [Robitussin Cough-Chest Dm Liq] Review of Systems All systems: negative Constitutional: no weight loss, no weight gain, no fever, no chills, no sweats, no fatigue, no weakness, no malaise Cardiovascular: shortness of breath, no chest pain Respiratory: cough with sputum Exam - Physical Exam Narrative exam: VITAL SIGNS: Reviewed. GENERAL: The patient appears normally developed, Vital signs as documented. HEAD: No signs of head trauma. EYES: Pupils are equal. Extraocular motions intact. EARS: Hearing grossly intact. MOUTH: Oropharynx is normal. NECK: No adenopathy, no JVD. CHEST: Chest with diminished breath sounds bilaterally. No wheezes, rales, or rhonchi. CARDIAC: Irregularly irregular. S1 and S2, without murmurs, gallops, or rubs. VASCULAR: No Edema. Peripheral pulses normal and equal in all extremities. ABDOMEN: Soft, non tender and non distended. No rebound or guarding, and no masses palpated. Bowel Sounds normal. MUSCULOSKELETAL: Good range of motion of all major joints. Extremities without clubbing, cyanosis or edema. NEUROLOGIC EXAM: Alert and oriented x 3 No focal sensory or strength deficits. Speech normal. Follows commands. PSYCHIATRIC: Mood normal. SKIN: Multiple skin patches from prior IV attempts and very poor vascular access. Detail exam as documented in skin assessment - Constitutional Vitals: Temp Pulse Resp BP Pulse Ox 97.8 F 91 H 22 116/75 98 02/28/22 03:41 02/28/22 04:04 02/28/22 05:15 02/28/22 03:41 02/28/22 05:15 HEART Score - HEART Score Troponin: Troponin T 0.576 ng/mL (0.00-0.029) H* 02/28/22 03:41 Results - Labs CBC & Chem 7: 02/28/22 03:41 02/28/22 03:41 Labs: Laboratory Last Values WBC 12.2 K/mm3 (4.5-11.0) H 02/28/22 03:41 RBC 3.67 M/mm3 (3.65-5.03) 02/28/22 03:41 Hgb 10.1 gm/dl (11.8-15.2) L 02/28/22 03:41 Hct 32.2 % (35.5-45.6) L 02/28/22 03:41 MCV 88 fl (84-94) 02/28/22 03:41 MCH 28 pg (28-32) 02/28/22 03:41 MCHC 31 % (32-34) L 02/28/22 03:41 RDW 15.7 % (13.2-15.2) H 02/28/22 03:41 Plt Count 219 K/mm3 (140-440) 02/28/22 03:41 Lymph % (Auto) 8.3 % (13.4-35.0) L 02/28/22 03:41 [place] % (Auto) 7.2 % (0.0-7.3) 02/28/22 03:41 Eos % (Auto) 0.9 % (0.0-4.3) 02/28/22 03:41 Baso % (Auto) 0.4 % (0.0-1.8) 02/28/22 03:41 Lymph # (Auto) 1.0 K/mm3 (1.2-5.4) L 02/28/22 03:41 [place] # (Auto) 0.9 K/mm3 (0.0-0.8) H 02/28/22 03:41 Eos # (Auto) 0.1 K/mm3 (0.0-0.4) 02/28/22 03:41 Baso # (Auto) 0.0 K/mm3 (0.0-0.1) 02/28/22 03:41 Seg Neutrophils % 83.2 % (40.0-70.0) H 02/28/22 03:41 Seg Neutrophils # 10.1 K/mm3 (1.8-7.7) H 02/28/22 03:41 PT 33.3 Sec. (12.2-14.9) H 02/28/22 03:54 INR 2.80 (0.87-1.13) H 02/28/22 03:54 ABG pH 7.381 pH Units (7.350-7.450) 02/28/22 05:00 ABG pCO2 41.2 mm Hg 02/28/22 05:00 ABG pO2 91.3 mm Hg (80.0-90.0) H 02/28/22 05:00 ABG HCO3 23.9 mmol/L (20.0-26.0) 02/28/22 05:00 ABG O2 Saturation 97.0 % (95.0-99.0) 02/28/22 05:00 ABG O2 Content 13.5 (0.0-44) 02/28/22 05:00 ABG Base Excess -1.1 mmol/L (-2.0-3.0) 02/28/22 05:00 ABG Hemoglobin 9.9 gm/dl (14.0-18.0) L 02/28/22 05:00 ABG Carboxyhemoglobin 1.0 % (0.0-5.0) 02/28/22 05:00 ABG Methemoglobin 0.4 % (0.0-1.5) 02/28/22 05:00 Oxyhemoglobin 95.6 % (95.0-99.0) 02/28/22 05:00 FiO2 50 % 02/28/22 05:00 Sodium 135 mmol/L (137-145) L 02/28/22 03:41 Potassium 5.0 mmol/L (3.6-5.0) 02/28/22 03:41 Chloride 91.4 mmol/L (98-107) L 02/28/22 03:41 Carbon Dioxide 21 mmol/L (22-30) L 02/28/22 03:41 Anion Gap 28 mmol/L 02/28/22 03:41 BUN 61 mg/dL (9-20) H 02/28/22 03:41 Creatinine 10.4 mg/dL (0.8-1.3) H 02/28/22 03:41 Estimated GFR 6 ml/min 02/28/22 03:41 BUN/Creatinine Ratio 6 % 02/28/22 03:41 Glucose 121 mg/dL (75-100) H 02/28/22 03:41 Calcium 9.0 mg/dL (8.4-10.2) 02/28/22 03:41 Total Bilirubin 0.20 mg/dL (0.1-1.2) 02/28/22 03:41 AST 18 units/L (5-40) 02/28/22 03:41 ALT 12 units/L (7-56) 02/28/22 03:41 Alkaline Phosphatase 51 units/L (35-129) 02/28/22 03:41 Total Creatine Kinase 192 units/L (55-170) H 02/28/22 03:41 CK-MB (CK-2) 7.2 ng/mL (0.0-4.0) H 02/28/22 03:41 CK-MB (CK-2) Rel Index 3.7 (0-4) 02/28/22 03:41 Troponin T 0.576 ng/mL (0.00-0.029) H* 02/28/22 03:41 NT-Pro-B Natriuret Pep > 19876 pg/mL (0-900) H 02/28/22 03:41 Total Protein 6.9 g/dL (6.3-8.2) 02/28/22 03:41 Albumin 4.3 g/dL (3.9-5) 02/28/22 03:41 Albumin/Globulin Ratio 1.7 % 02/28/22 03:41 Triglycerides 102 mg/dL (2-149) 02/28/22 03:41 Cholesterol 147 mg/dL (50-199) 02/28/22 03:41 LDL Cholesterol Direct 73 mg/dL (50-130) 02/28/22 03:41 HDL Cholesterol 54 mg/dL (40-59) 02/28/22 03:41 Cholesterol/HDL Ratio 2.72 % 02/28/22 03:41 Lipase 48 units/L (13-60) 02/28/22 03:41 Assessment and Plan Assessment and plan: Patient is 81 YO Male with COPD, CAD, S/P Stent Placement, HLD, ESRD on HD M/W/F, HTN, Paroxysmal Atrial Fibrillation currently on therapeutic anticoagulation with Coumadin, [place], Diastolic CHF, OA, COPD chronic hypoxia on home oxygen [facility] presents to [facility] ED today with complaint of persistent cough that has been ongoing for the past week with sensation of phlegm stuck at the back of his throat. He also reports worsening shortness of breath he is normally on 4 to 5 L of oxygen at home but last night had to go up to 8 L prior to presenting to the ED. in the ED he was given steroids and nebulizer treatment and placed on a full Venturi mask. His saturation is 100% at the time I came to evaluate him. He denies any fever nausea vomiting or diarrhea he denies any chest pain or leg swelling. He denies any change in his medications or diet at this time. He reports compliance with his dialysis. Chest x-ray reviewed by me unremarkable EKG shows atrial fibrillation rate controlled Acute on chronic hypoxic respiratory failure COPD with exacerbation CAD status post stents End-stage renal disease Type II NSTEMI Systemic inflammatory response syndrome with organ dysfunction Secondary coagulopathy patient on Coumadin Therapeutic INR Acute diastolic congestive heart failure COUGH X 1 WEEK PROGRESSIVE AND NON PRODUCTIVE -NEG CXR Worsening shortness of breath despite home o2, normally at 3-5liters No outpatient pulmonary doctor NM patient PLAN Admit to Telemetry COPD PROTOCOL Steroids IV Azithromycine Robitussin for cough Nephrology consulted discussed with them for dialysis patient is dialyzed Saturday Pulmonary consult for worsening respiratory failure this could be secondary to volume overload versus COPD exacerbation Cardiology consult considering atrial fibrillation although rate controlled and INR is therapeutic but may have an underlying progression of his diastolic heart failure Wean oxygen as tolerated DVT and GI prophylaxis Extensive counseling provided to the patient including 30 minutes of advance ca re planning discussed with the patient and the at bedside. Previous hospitalization reviewed. Will await completion of medication history to reconcile home medications. Advance Directives: Yes Plan of care discussed with patient/family: Yes
[2022-02-28] MEDS ORDERED: ALBUTEROL 2.5 MG/3 ML NEBU IH PRN (09:00)
[2022-02-28] MEDS ORDERED: NALOXONE 0.4 MG/1 ML INJ IV PRN (09:00)
[2022-02-28] MEDS ORDERED: guaiFENesin/CODEINE 100-10MG ORAL LIQD 5 ML PO NR (09:00)
[2022-02-28] MEDS ORDERED: ONDANSETRON 4 MG/2 ML INJ IV PRN (09:00)
[2022-02-28] MEDS ORDERED: ACETYLCYSTEINE 20% 200 MG/1 ML *FOR INHALATION USE INHALATION NR (09:15)
[2022-02-28] MEDS: CHOLECALCIFEROL (VIT D3) 1000 UNIT (25 mcg) TAB PO SCH (09:50)
[2022-02-28] MEDS: FAMOTIDINE 20 MG/2 ML INJ IV SCH ×2 (09:50→22:45)
[2022-02-28] MEDS: CLOPIDOGREL 75 MG TAB PO SCH (09:50)
[2022-02-28] MEDS: METOPROLOL TARTRATE 50 MG TAB PO SCH ×2 (09:51→22:46)
[2022-02-28] MEDS: AZITHROMYCIN/NS 500 MG/250 ML 500 MG/250 ML BAG IV SCH (09:54)
[2022-02-28] MEDS ORDERED: METOPROLOL TARTRATE 100 MG TAB PO SCH (10:00)
[2022-02-28] MEDS ORDERED: guaiFENesin DM 200/20 MG ORAL LIQD 10 ML PO PRN (10:00)
--- NOTE | 2022-02-28 10:45 | Consultation ---
History of Present Illness Consult date: 02/28/22 Requesting physician: RENEE ESCOBAR Consult reason: congestive heart failure History of present illness: 81-year-old male, who follows with Dr. West, with end-stage renal disease on HD MWF, hypertension, hyperlipidemia, and CAD with known lesion in proximal LAD and PCI of left circumflex with occasional shortness of breath, paroxysmal A. fib (on Coumadin), home o2 (4-5 L prn) who presents to [facility] today with complaints of nonproductive cough that began 1 week ago and he was progressively worsening over the past few days. He states he is typically able to walk around his house with no problem, and has been unable to walk more than about 10 feet without requiring rest. He states he attempted to go to urgent care, however, nothing was done for his cough. He states he is concerned about fluid around his heart and lungs. He further states he has been compliant with dialysis, medications, and diet and fluid restrictions. He endorses orthopnea, exertional dyspnea, PND, exercse intolerance, vomiting and cough but denies lower extremity swelling, chest pain, palpitations or syncope. He states his symptoms are worse when reclining or lying flat and are improved when sitting forward. Work-up in the emergency room revealed a troponin of 0.576 and BNP of greater than 70,000. Chest x-ray was negative for acute process. Cardiology is consulted for heart failure. Past History Past Medical History: atrial fib, CAD, COPD, ESRD, GERD, hypertension, hyperlipidemia Past Surgical History: Other (Dialysis fistula) Social history: , full code Family history: no significant family history Medications and Allergies Allergies Allergy/AdvReac Type Severity Reaction Status Date / Time atorvastatin calcium Allergy Mild Unknown Verified 02/12/21 10:43 [From Lipitor] ciprofloxacin [From Cipro] Allergy Mild Bleeding Verified 09/23/20 12:30 ciprofloxacin HCl Allergy Mild Bleeding Verified 09/23/20 12:30 [From Cipro] simvastatin Allergy Mild Unknown Verified 09/23/20 12:30 Home Medications Medication Instructions Recorded Confirmed Last Taken Type ALBUTEROL NEB's [Proventil 0.083% 2.5 mg IH Q6HRT PRN #50 nebu 09/28/20 04/25/21 04/23/21 Rx NEBS] AtorvaSTATin 10 mg PO QHS #30 tablet 09/28/20 04/25/21 04/22/21 Rx Budesonide [Pulmicort Respules] 0.5 mg IH Q12HRT #30 nebu 09/28/20 04/25/21 04/22/21 Rx Epoetin Eric 10,000 Unit [Procrit] 10,000 unit IV LIZANDRO PRN vial 09/28/20 04/24/21 02/28/21 12:39 Rx Ipratropium/Albuterol Sulfate 1 ampul IH TIDRT #50 ampul.neb 09/28/20 04/25/21 04/22/21 Rx [DUONEB *Not for PRN Use*] Sodium Bicarbonate 650 mg PO BID #60 09/28/20 04/25/21 04/23/21 Rx Tiotropium [Spiriva] 2 puff IH DAILY 30 Days #1 cap 09/28/20 04/25/21 04/23/21 Rx Clopidogrel [Plavix] 75 mg PO QDAY tablet 02/13/21 04/25/21 04/22/21 Rx Cholecalciferol Vit D3 [Vitamin D3 1,000 unit PO DAILY tablet 03/03/21 04/25/21 04/23/21 Rx 1,000 UNIT TAB] Lanthanum Carbonate [Fosrenol] 1,000 mg PO BIDAC tab.chew 03/03/21 04/25/21 04/23/21 Rx Pantoprazole [Protonix TAB] 40 mg PO QDAC tablet 03/03/21 04/25/21 04/23/21 Rx Metoprolol [Lopressor TAB] 50 mg PO BID #60 tablet 03/16/21 04/25/21 04/23/21 Rx Warfarin [Coumadin] 6 mg PO DAILY@1700 #60 tablet 04/26/21 Unknown Rx guaiFENesin/DEXTROMETHORPHAN 237 ml PO QID PRN 14 Days #1 bottle 04/26/21 Unknown Rx [Robitussin Cough-Chest Dm Liq] Active Meds: Active Medications Acetaminophen (Acetaminophen 325 Mg Tab) 650 mg PO Q4H PRN PRN Reason: Pain MILD(1-3)/Fever >100.5/STOLL Albuterol (Albuterol 2.5 Mg/3 Ml Nebu) 2.5 mg IH Q4HRT PRN PRN Reason: Shortness Of Breath Albuterol/Ipratropium (Ipratropium/Albuterol Sulfate 3 Ml Ampul.Neb) 1 ampul IH Q6HRT [facility] Atorvastatin Calcium (Atorvastatin 10 Mg Tab) 10 mg PO QHS [facility] Budesonide (Budesonide 0.5 Mg/2 Ml Nebu) 0.5 mg IH Q12HRT [facility] Cholecalciferol (Cholecalciferol (Vit D3) 1000 Unit (25 Mcg) Tab) 1,000 unit PO DAILY [facility] Last Admin: 02/28/22 09:50 Dose: 1,000 unit Clopidogrel Bisulfate (Clopidogrel 75 Mg Tab) 75 mg PO QDAY [facility] Last Admin: 02/28/22 09:50 Dose: 75 mg Epoetin Eric-epbx (Epoetin Eric-Epbx 10,000 Unit/1 Ml Vial) 10,000 unit IV LIZANDRO PRN PRN Reason: HEMODIALYSIS Famotidine (Famotidine 20 Mg/2 Ml Inj) 20 mg IV BID [facility] Last Admin: 02/28/22 09:50 Dose: 20 mg Guaifenesin (Guaifenesin Dm 200/20 Mg Oral Liqd 10 Ml) 10 ml PO QID PRN PRN Reason: Cough Azithromycin (Zithromax/Ns) 500 mg in 250 mls @ 250 mls/hr IV Q24H [facility] Last Admin: 02/28/22 09:54 Dose: 250 mls/hr Lanthanum Carbonate (Lanthanum Carbonate 500 Mg Tab) 1,000 mg PO BIDAC [facility] Methylprednisolone Sodium Succinate (Methylprednisolone Sod Succinate 125 Mg/2 Ml Inj) 60 mg IV Q8HR [facility] Metoprolol Tartrate (Metoprolol Tartrate 50 Mg Tab) 50 mg PO BID [facility] Last Admin: 02/28/22 09:51 Dose: 50 mg Naloxone HCl (Naloxone 0.4 Mg/1 Ml Inj) 0.1 mg IV Q2MIN PRN PRN Reason: Res Rate </= 8 or 02 SAT < 92% Ondansetron HCl (Ondansetron 4 Mg/2 Ml Inj) 4 mg IV Q8H PRN PRN Reason: Nausea And Vomiting Oxycodone/Acetaminophen (Oxycodone /Acetaminophen 5-325mg Tab) 1 tab PO Q6H PRN PRN Reason: Pain, Moderate (4-6) Pantoprazole Sodium (Pantoprazole 40 Mg Tab) 40 mg PO QDAC [facility] Pseudoephedrine/Acetam/Chlorphenir (Guaifenesin/Codeine 100-10mg Oral Liqd 5 Ml) 5 ml PO ONCE NR Stop: 02/28/22 11:00 Sodium Bicarbonate (Sodium Bicarbonate 650 Mg Tab) 650 mg PO BID [facility] Sodium Chloride (Sodium Chloride 0.9% 10 Ml Flush Syringe) 10 ml IV BID [facility] Last Admin: 02/28/22 10:26 Dose: 10 ml Sodium Chloride (Sodium Chloride 0.9% 10 Ml Flush Syringe) 10 ml IV PRN PRN PRN Reason: LINE FLUSH Tiotropium [place] (Tiotropium 18 Mcg Cap Inhalation) 2 puff IH DAILY [facility] Warfarin Sodium (Warfarin 2 Mg Tab) 6 mg PO DAILY@1700 [facility]; Protocol Review of Systems All systems: negative Constitutional: fatigue Cardiovascular: orthopnea, shortness of breath, dyspnea on exertion, paroxysmal nocturnal dyspnea, decreased exercise tolerance, no chest pain, no palpitations, no rapid/irregular heart beat, no edema, no syncope, no leg edema Respiratory: cough, shortness of breath, dyspnea on exertion, home oxygen (states he has not needed his home o2), no sleep apnea Gastrointestinal: nausea, vomiting, diarrhea Physical Examination Vital Signs Temp Pulse Resp BP Pulse Ox 98.4 F 84 18 132/81 96 02/28/22 03:25 02/28/22 03:25 02/28/22 03:25 02/28/22 03:25 02/28/22 03:25 General appearance: mild distress HEENT: Positive: Mucus Membranes Moist Neck: Positive: JVD/HJR Cardiac: Positive: Regular Rate, S1/S2 Lungs: Positive: Rales (exp wheezes bilaterally ), Wheezes Neuro: Positive: Grossly Intact Abdomen: Positive: Soft, Active Bowel Sounds Male genitourinary: Positive: deferred Skin: Positive: Other (puncture sites to LFA fistula ) Extremities: Present: normal. Absent: edema Results 02/28/22 03:41 02/28/22 03:41 Cardiac Enzymes 02/28/22 Range/Units 03:41 AST 18 (5-40) units/L CK-MB (CK-2) 7.2 H (0.0-4.0) ng/mL Coagulation 02/28/22 Range/Units 03:54 PT 33.3 H (12.2-14.9) Sec. INR 2.80 H (0.87-1.13) Lipids 02/28/22 Range/Units 03:41 Triglycerides 102 (2-149) mg/dL Cholesterol 147 (50-199) mg/dL HDL Cholesterol 54 (40-59) mg/dL Cholesterol/HDL Ratio 2.72 % CBC 02/28/22 Range/Units 03:41 WBC 12.2 H (4.5-11.0) K/mm3 RBC 3.67 (3.65-5.03) M/mm3 Hgb 10.1 L (11.8-15.2) gm/dl Hct 32.2 L (35.5-45.6) % Plt Count 219 (140-440) K/mm3 Lymph # (Auto) 1.0 L (1.2-5.4) K/mm3 [place] # (Auto) 0.9 H (0.0-0.8) K/mm3 Eos # (Auto) 0.1 (0.0-0.4) K/mm3 Baso # (Auto) 0.0 (0.0-0.1) K/mm3 Comprehensive Metabolic Panel 02/28/22 Range/Units 03:41 Sodium 135 L (137-145) mmol/L Potassium 5.0 (3.6-5.0) mmol/L Chloride 91.4 L (98-107) mmol/L Carbon Dioxide 21 L (22-30) mmol/L BUN 61 H (9-20) mg/dL Creatinine 10.4 H (0.8-1.3) mg/dL Glucose 121 H (75-100) mg/dL Calcium 9.0 (8.4-10.2) mg/dL AST 18 (5-40) units/L ALT 12 (7-56) units/L Alkaline Phosphatase 51 (35-129) units/L Total Protein 6.9 (6.3-8.2) g/dL Albumin 4.3 (3.9-5) g/dL - Imaging and Cardiology Echo: pending EKG: pending Assessment and Plan Assessment: Acute on chronic HFpEF (previous EF 50-55%) NSTEMI Acute COPD Exacerbation vs acute respiratory failure CAD (s/p PCI - on plaxiv) Paroxysmal Afib (on coumadin) ESRD on HD Elevated BNP - echo pending H/o chronically elevated troponin H/o pericardial effusion Outpatient medications: Albuterol 2.5 mg, inhaled as needed, Plavix 75 mg p.o. daily, ferrous fumarate 325 mg p.o. daily, Fosrenol 1000 mg oral tab twice daily, metoprolol 12.5 mg p.o. twice daily, nifedipine 90 mg p.o. as needed, rosuvastatin 10 mg p.o. daily, Spiriva respimat 2.5 mcg/inh 2 puffs inhaled daily, spironolactone 25 mg p.o. twice daily, warfarin 5 mg PO daily, vitamin D3 1000 units p.o. daily, Symbicort 80 mcgs-4.5 mcgs/inh, 2 puffs inhaled twice daily Cardiographics: EKG 02/28/22: Pending CXR: No acute abnormalities Echocardiogram -- 02/28/2022: Pending ---03/14/2021: Left ventricular systolic function is normal. Mild concentric left ventricular hypertrophy. LVEF is 50 to 55%. Mild to moderate circumferential pericardial effusion. No echocardiographic evidence of tamponade physiology. This represents significant improvement when compared to TTE 03/03/2021. Large left pleural effusion. Lexiscan Stress Test --02/15/2022 impressions: 1. Pharmacologic stress nuclear study is abnormal 2. There is a mildly reduced perfusion defect of small size in the mid anterior wall. There are moderately reduced perfusion defect of small to medium size and apical wall. There are moderately reduced perfusion defects of medium size in the lateral wall. The defect in the anterior segment is fixed. The defect in the apical segment is fixed. The defect in the lateral segment is partially reversible. 3. Abnormal SPECT perfusion imaging with ischemia in the lateral segment. 4. Stress EKG test results normal. 5. The calcified rest EF is at 30%. Calculated stress EF is at 31%.Recommendations: Due to findings clinical correlation is recommended Cardiac cath: ---02/14/2021- rota of left circumflex stents: Resolute [place] 3.0 x 38 mm and unable to open OM1 ---02/13/2021: 1. Poba of the circumflex, but it unable to deliver stent secondary to calcification. The patient be transferred to [place] for rotational atherectomy. OM1 patent. OM 200%. OM 3 patent. RCA mid ectatic vessels with in-stent restenosis 20%, PDA patent.2. Left main distal 20%, LAD proximal 60 to 70%, stent patent, diagonal 1 ostial 90%. Rest of LAD patent 3. Normal LV. The patient will be loaded with Plavix. Discussed this function with the patient and the patient's family. ---08/29/2018: Left main large and patent LAD proximal mid stent patent diagonal 1 ostial 80% mid LAD patent. Circumflex is patent with mid stent widely patent. OM1 ostial 80 to 90% patent RCA, patent stents and normal LV function. Recommendations/Plan: -Obtain EKG -Trend troponin. Initial 0.576. Repeat x2 sets. -Check echocardiogram -Recent Abnormal nuclear lexiscan mpi in office. Reviewed with attending; no urgent need for LHC given location of abnormalities and known hx of lesions. Will await improvement in volume and clinical status via HD and reassess over next 1-2 days. However, EF appeared to have dropped on MPI. Will assess heart function with new echo. -GDMT: Continue Metoprolol 50 PO BID, plavix 75 mg PO qday, spirinalactone 25 mg PO qday, and Coumadin PO -Unable to order statin- rosuvastain not on formulary and pt with allergy to atorvastatin and simvastatin. -No Donovan/ARB/ARNi in setting of ESRD -Fluid status optimization via HD and per nephrology -Follow-up appointment 03/19/2022 at [facility] in [place] with Dr. West Thank you for this consultation, we will continue to follow along with you. Patient seen and examined in conjunction with Dr. Samuel, who agrees with assessment and plan of care. - Patient Problems (1) Acute exacerbation of chronic obstructive pulmonary disease (COPD) Current Visit: Yes Status: Acute (2) NSTEMI (non-ST elevation myocardial infarction) Current Visit: Yes Status: Acute (3) Shortness of breath Current Visit: Yes Status: Acute (4) COPD (chronic obstructive pulmonary disease) Current Visit: Yes Status: Chronic (5) End-stage renal disease on hemodialysis Current Visit: Yes Status: Chronic (6) Acute on chronic heart failure with preserved ejection fraction (HFpEF) Current Visit: Yes Status: Acute (7) Dyspnea on exertion Current Visit: Yes Status: Acute (8) Anticoagulated on Coumadin Current Visit: Yes Status: Chronic (9) CAD (coronary artery disease) Current Visit: Yes Status: Chronic Qualifiers: Coronary Disease-Associated Artery/Lesion type: unspecified vessel or lesion type [place]oh vs. transplanted heart: [place] heart Associated angina: angina presence unspecified (10) Paroxysmal atrial fibrillation Current Visit: No Status: Chronic
[2022-02-28] MEDS: SODIUM BICARBONATE 650 MG TAB PO SCH ×2 (12:11→22:45)
--- NOTE | 2022-02-28 12:39 | Consultation ---
History of Present Illness Consult date: 02/28/22 Requesting physician: RENEE ESCOBAR Reason for consult: other (Acute Hypoxemic Respiratory Failure) History of present illness: PULMONARY/CCM CONSULT NOTE (Full dictation # [id number]) Please see dictated notes for full details Past History Past Medical History: atrial fib, CAD, COPD, ESRD, GERD, hypertension, hyperlipidemia Past Surgical History: Other (Dialysis fistula) Social history: , full code Family history: no significant family history Medications and Allergies Allergies Allergy/AdvReac Type Severity Reaction Status Date / Time atorvastatin calcium Allergy Mild Unknown Verified 02/12/21 10:43 [From Lipitor] ciprofloxacin [From Cipro] Allergy Mild Bleeding Verified 09/23/20 12:30 ciprofloxacin HCl Allergy Mild Bleeding Verified 09/23/20 12:30 [From Cipro] simvastatin Allergy Mild Unknown Verified 09/23/20 12:30 Home Medications Medication Instructions Recorded Confirmed Last Taken Type ALBUTEROL NEB's [Proventil 0.083% 2.5 mg IH Q6HRT PRN #50 nebu 09/28/20 04/25/21 04/23/21 Rx NEBS] AtorvaSTATin 10 mg PO QHS #30 tablet 09/28/20 04/25/21 04/22/21 Rx Budesonide [Pulmicort Respules] 0.5 mg IH Q12HRT #30 nebu 09/28/20 04/25/21 04/22/21 Rx Epoetin Eric 10,000 Unit [Procrit] 10,000 unit IV LIZANDRO PRN vial 09/28/20 04/24/21 02/28/21 12:39 Rx Ipratropium/Albuterol Sulfate 1 ampul IH TIDRT #50 ampul.neb 09/28/20 04/25/21 04/22/21 Rx [DUONEB *Not for PRN Use*] Sodium Bicarbonate 650 mg PO BID #60 09/28/20 04/25/21 04/23/21 Rx Tiotropium [Spiriva] 2 puff IH DAILY 30 Days #1 cap 09/28/20 04/25/21 04/23/21 Rx Clopidogrel [Plavix] 75 mg PO QDAY tablet 02/13/21 04/25/21 04/22/21 Rx Cholecalciferol Vit D3 [Vitamin D3 1,000 unit PO DAILY tablet 0404/25/21 04/23/21 Rx 1,000 UNIT TAB] Lanthanum Carbonate [Fosrenol] 1,000 mg PO BIDAC tab.chew 03/03/21 04/25/21 04/23/21 Rx Pantoprazole [Protonix TAB] 40 mg PO QDAC tablet 03/03/21 04/25/21 04/23/21 Rx Metoprolol [Lopressor TAB] 50 mg PO BID #60 tablet 03/16/21 04/25/21 04/23/21 Rx NIFEdipine [Nifedipine] 50 mg PO BID 02/28/22 02/28/22 Unknown History Active Meds: Active Medications Acetaminophen (Acetaminophen 325 Mg Tab) 650 mg PO Q4H PRN PRN Reason: Pain MILD(1-3)/Fever >100.5/STOLL Albuterol (Albuterol 2.5 Mg/3 Ml Nebu) 2.5 mg IH Q4HRT PRN PRN Reason: Shortness Of Breath Albuterol/Ipratropium (Ipratropium/Albuterol Sulfate 3 Ml Ampul.Neb) 1 ampul IH Q6HRT DARNELL Atorvastatin Calcium (Atorvastatin 10 Mg Tab) 10 mg PO QHS DARNELL Budesonide (Budesonide 0.5 Mg/2 Ml Nebu) 0.5 mg IH Q12HRT DARNELL Cholecalciferol (Cholecalciferol (Vit D3) 1000 Unit (25 Mcg) Tab) 1,000 unit PO DAILY [facility] Last Admin: 02/28/22 09:50 Dose: 1,000 unit Clopidogrel Bisulfate (Clopidogrel 75 Mg Tab) 75 mg PO QDAY [facility] Last Admin: 02/28/22 09:50 Dose: 75 mg Epoetin Eric-epbx (Epoetin Eric-Epbx 10,000 Unit/1 Ml Vial) 10,000 unit IV LIZANDRO PRN PRN Reason: HEMODIALYSIS Famotidine (Famotidine 20 Mg/2 Ml Inj) 20 mg IV BID [facility] Last Admin: 02/28/22 09:50 Dose: 20 mg Guaifenesin (Guaifenesin Dm 200/20 Mg Oral Liqd 10 Ml) 10 ml PO QID PRN PRN Reason: Cough Azithromycin (Zithromax/Ns) 500 mg in 250 mls @ 250 mls/hr IV Q24H [facility] Last Admin: 02/28/22 09:54 Dose: 250 mls/hr Lanthanum Carbonate (Lanthanum Carbonate 500 Mg Tab) 1,000 mg PO BIDAC [facility] Methylprednisolone Sodium Succinate (Methylprednisolone Sod Succinate 125 Mg/2 Ml Inj) 60 mg IV Q8HR [facility] Metoprolol Tartrate (Metoprolol Tartrate 50 Mg Tab) 50 mg PO BID [facility] Last Admin: 02/28/22 09:51 Dose: 50 mg Naloxone HCl (Naloxone 0.4 Mg/1 Ml Inj) 0.1 mg IV Q2MIN PRN PRN Reason: Res Rate </= 8 or 02 SAT < 92% Ondansetron HCl (Ondansetron 4 Mg/2 Ml Inj) 4 mg IV Q8H PRN PRN Reason: Nausea And Vomiting Oxycodone/Acetaminophen (Oxycodone /Acetaminophen 5-325mg Tab) 1 tab PO Q6H PRN PRN Reason: Pain, Moderate (4-6) Pantoprazole Sodium (Pantoprazole 40 Mg Tab) 40 mg PO QDAC [facility] Sodium Bicarbonate (Sodium Bicarbonate 650 Mg Tab) 650 mg PO BID [facility] Sodium Chloride (Sodium Chloride 0.9% 10 Ml Flush Syringe) 10 ml IV BID [facility] Last Admin: 02/28/22 10:26 Dose: 10 ml Sodium Chloride (Sodium Chloride 0.9% 10 Ml Flush Syringe) 10 ml IV PRN PRN PRN Reason: LINE FLUSH Tiotropium [place] (Tiotropium 18 Mcg Cap Inhalation) 2 puff IH DAILY [facility] Warfarin Sodium (Warfarin 2 Mg Tab) 6 mg PO DAILY@1700 [facility]; Protocol Physical Examination Vital signs: Vital Signs Temp Pulse Resp BP Pulse Ox 98.4 F 84 18 132/81 96 02/28/22 03:25 02/28/22 03:25 02/28/22 03:25 02/28/22 03:25 02/28/22 03:25 Results - Laboratory Findings CBC and BMP: 02/28/22 03:41 02/28/22 03:41 ABG ABG pH 7.381 pH Units (7.350-7.450) 02/28/22 05:00 ABG pCO2 41.2 mm Hg 02/28/22 05:00 ABG pO2 91.3 mm Hg (80.0-90.0) H 02/28/22 05:00 ABG O2 Saturation 97.0 % (95.0-99.0) 02/28/22 05:00 PT/INR, D-dimer PT 33.3 Sec. (12.2-14.9) H 02/28/22 03:54 INR 2.80 (0.87-1.13) H 02/28/22 03:54 Abnormal lab findings: Abnormal Labs 02/28/22 02/28/22 02/28/22 03:41 03:41 03:54 WBC 12.2 H Hgb 10.1 L Hct 32.2 L MCHC 31 L RDW 15.7 H Lymph % (Auto) 8.3 L Lymph # (Auto) 1.0 L [place] # (Auto) 0.9 H Seg Neutrophils % 83.2 H Seg Neutrophils # 10.1 H PT 33.3 H INR 2.80 H ABG pO2 ABG Hemoglobin Sodium 135 L Chloride 91.4 L Carbon Dioxide 21 L BUN 61 H Creatinine 10.4 H Glucose 121 H Total Creatine Kinase 192 H CK-MB (CK-2) 7.2 H Troponin T 0.576 H* NT-Pro-B Natriuret Pep > 53183 H 02/28/22 05:00 WBC Hgb Hct MCHC RDW Lymph % (Auto) Lymph # (Auto) [place] # (Auto) Seg Neutrophils % Seg Neutrophils # PT INR ABG pO2 91.3 H ABG Hemoglobin 9.9 L Sodium Chloride Carbon Dioxide BUN Creatinine Glucose Total Creatine Kinase CK-MB (CK-2) Troponin T NT-Pro-B Natriuret Pep
--- NOTE | 2022-02-28 12:53 | Consultation ---
History of Present Illness - History of Present Illness Time of evaluation 850 in the morning Thank you for the consultation Patient was evaluated today My assessment and plan are as follows #End-stage kidney disease: Patient will continue to receive hemodialysis treatment 3 times a week on Saturday and Saturday schedule outpatient dialysis facility is at [facility], Monitor dialysis related labs/monitor for any access issues Fluid restriction 1200 cc/day high-protein diet #Access: Patient's graft appears to be slightly stenosed will consider vascular surgery evaluation tomorrow morning it does have a short bruit proximally #Hypertension and volume: To monitor and follow avoid hypotension tachycardia during dialysis ultrafiltration goals can be adjusted if needed dialysis nurse to monitor hemodynamics closely #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: To monitor and follow erythropoietin periodically goal hemoglobin between 10-11-1/2 Minimize lab draw in dialysis patients, if possible consider limiting to dialysis days Bone mineral disorder and secondary hyperparathyroidism; Monitor phosphorus binders as necessary goal phosphorus less than 5-1/2 Please consider protein supplementation fluid restriction #Medication recommendation: We will continue to follow and monitor All related questions have been addressed with the patient, as well as his at the bedside including diet lifestyle changes fluid restriction sodium restrictions avoidance of processed food as much as possible If you have any questions regarding this patient's renal care please feel free to reach out to us without any hesitation without any hesitation Author: Aidan Tang M.D. [facility], [address] [place] [address] Tel; [phone] Source of information: From patient as well as his History of present illness Patient is a very pleasant 81-year-old -French male with been admitted here with increasing shortness of breath and cough which has been present for last 7 days patient states that he has had an outpatient COVID testing which was negative. 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 Atrial fibrillation Coronary artery disease Stent placement Myocardial infarction Current allergies: Reviewed from the current chart Social history: Reviewed from the current chart Family history: Reviewed from the current chart Review of system: Positive for cough and shortness of breath nearly 1 week duration All other review of systems negative Physical examination Vitals: Reviewed General: No acute distress HEENT: Oral mucosa moist no pallor or icterus Neck: Supple without any JVD thyromegaly or nodular mass Chest: Some prolongation of expiratory phase and wheezing Heart: Regular rate and rhythm S1-S2 heard no S3-S4 Abdomen: Soft nontender, bowel sounds present no renal bruit no suprapubic masses no CVA tenderness noted Extremity: Minimal edema dry skin no peripheral cyanosis With some areas of stenosis superficially,fistula appears to have sharp bruit proximally in the left arm endocrine: Thyroid not enlarged Psychiatric: No agitation and aggression noted Musculoskeletal: No joint effusion noted Labs and x-rays: Reviewed from this admission Past History Past Medical History: atrial fib, CAD, COPD, ESRD, GERD, hypertension, hyperlipidemia Past Surgical History: Other (Dialysis fistula) Social history: , full code Family history: no significant family history Medications and Allergies Allergies Allergy/AdvReac Type Severity Reaction Status Date / Time atorvastatin calcium Allergy Mild Unknown Verified 02/12/21 10:43 [From Lipitor] ciprofloxacin [From Cipro] Allergy Mild Bleeding Verified 09/23/20 12:30 ciprofloxacin HCl Allergy Mild Bleeding Verified 09/23/20 12:30 [From Cipro] simvastatin Allergy Mild Unknown Verified 09/23/20 12:30 Home Medications Medication Instructions Recorded Confirmed Last Taken Type ALBUTEROL NEB's [Proventil 0.083% 2.5 mg IH Q6HRT PRN #50 nebu 09/28/20 04/25/21 04/23/21 Rx NEBS] AtorvaSTATin 10 mg PO QHS #30 tablet 09/28/20 04/25/21 04/22/21 Rx Budesonide [Pulmicort Respules] 0.5 mg IH Q12HRT #30 nebu 09/28/20 04/25/21 04/22/21 Rx Epoetin Eric 10,000 Unit [Procrit] 10,000 unit IV LIZANDRO PRN vial 09/28/20 04/24/21 02/28/21 12:39 Rx Ipratropium/Albuterol Sulfate 1 ampul IH TIDRT #50 ampul.neb 09/28/20 04/25/21 04/22/21 Rx [DUONEB *Not for PRN Use*] Sodium Bicarbonate 650 mg PO BID #60 09/28/20 04/25/21 04/23/21 Rx Tiotropium [Spiriva] 2 puff IH DAILY 30 Days #1 cap 09/28/20 04/25/21 04/23/21 Rx Clopidogrel [Plavix] 75 mg PO QDAY tablet 02/13/21 04/25/21 04/22/21 Rx Cholecalciferol Vit D3 [Vitamin D3 1,000 unit PO DAILY tablet 03/03/21 04/25/21 04/23/21 Rx 1,000 UNIT TAB] Lanthanum Carbonate [Fosrenol] 1,000 mg PO BIDAC tab.chew 03/03/21 04/25/21 04/23/21 Rx Pantoprazole [Protonix TAB] 40 mg PO QDAC tablet 03/03/21 04/25/21 04/23/21 Rx Metoprolol [Lopressor TAB] 50 mg PO BID #60 tablet 03/16/21 04/25/21 04/23/21 Rx NIFEdipine [Nifedipine] 50 mg PO BID 02/28/22 02/28/22 Unknown History Active Meds: Active Medications Acetaminophen (Acetaminophen 325 Mg Tab) 650 mg PO Q4H PRN PRN Reason: Pain MILD(1-3)/Fever >100.5/STOLL Albuterol (Albuterol 2.5 Mg/3 Ml Nebu) 2.5 mg IH Q4HRT PRN PRN Reason: Shortness Of Breath Albuterol/Ipratropium (Ipratropium/Albuterol Sulfate 3 Ml Ampul.Neb) 1 ampul IH Q6HRT DARNELL Atorvastatin Calcium (Atorvastatin 10 Mg Tab) 10 mg PO QHS DARNELL Budesonide (Budesonide 0.5 Mg/2 Ml Nebu) 0.5 mg IH Q12HRT [facility] Cholecalciferol (Cholecalciferol (Vit D3) 1000 Unit (25 Mcg) Tab) 1,000 unit PO DAILY DARNELL Last Admin: 02/28/22 09:50 Dose: 1,000 unit Clopidogrel Bisulfate (Clopidogrel 75 Mg Tab) 75 mg PO QDAY [facility] Last Admin: 04/27/22 09:50 Dose: 75 mg Epoetin Eric-epbx (Epoetin Eric-Epbx 10,000 Unit/1 Ml Vial) 10,000 unit IV LIZANDRO PRN PRN Reason: HEMODIALYSIS Famotidine (Famotidine 20 Mg/2 Ml Inj) 20 mg IV BID [facility] Last Admin: 02/28/22 09:50 Dose: 20 mg Guaifenesin (Guaifenesin Dm 200/20 Mg Oral Liqd 10 Ml) 10 ml PO QID PRN PRN Reason: Cough Azithromycin (Zithromax/Ns) 500 mg in 250 mls @ 250 mls/hr IV Q24H [facility] Last Admin: 02/28/22 09:54 Dose: 250 mls/hr Lanthanum Carbonate (Lanthanum Carbonate 500 Mg Tab) 1,000 mg PO BIDAC [facility] Methylprednisolone Sodium Succinate (Methylprednisolone Sod Succinate 125 Mg/2 Ml Inj) 60 mg IV Q8HR [facility] Metoprolol Tartrate (Metoprolol Tartrate 50 Mg Tab) 50 mg PO BID [facility] Last Admin: 02/28/22 09:51 Dose: 50 mg Naloxone HCl (Naloxone 0.4 Mg/1 Ml Inj) 0.1 mg IV Q2MIN PRN PRN Reason: Res Rate </= 8 or 02 SAT < 92% Ondansetron HCl (Ondansetron 4 Mg/2 Ml Inj) 4 mg IV Q8H PRN PRN Reason: Nausea And Vomiting Oxycodone/Acetaminophen (Oxycodone /Acetaminophen 5-325mg Tab) 1 tab PO Q6H PRN PRN Reason: Pain, Moderate (4-6) Pantoprazole Sodium (Pantoprazole 40 Mg Tab) 40 mg PO QDAC [facility] Sodium Bicarbonate (Sodium Bicarbonate 650 Mg Tab) 650 mg PO BID [facility] Last Admin: 02/28/22 12:11 Dose: 650 mg Sodium Chloride (Sodium Chloride 0.9% 10 Ml Flush Syringe) 10 ml IV BID [facility] Last Admin: 02/28/22 10:26 Dose: 10 ml Sodium Chloride (Sodium Chloride 0.9% 10 Ml Flush Syringe) 10 ml IV PRN PRN PRN Reason: LINE FLUSH Tiotropium [place] (Tiotropium 18 Mcg Cap Inhalation) 2 puff IH DAILY [facility] Warfarin Sodium (Warfarin 2 Mg Tab) 6 mg PO DAILY@1700 [facility]; Protocol Exam - Vital Signs Vital signs: Vital Signs Temp Pulse Resp BP Pulse Ox 98.4 F 84 18 132/81 96 02/28/22 03:25 02/28/22 03:25 02/28/22 03:25 02/28/22 03:25 02/28/22 03:25 Results - Lab Results 02/28/22 03:41 02/28/22 03:41 Most recent lab results ABG pH 7.381 pH Units (7.350-7.450) 02/28/22 05:00 ABG pCO2 41.2 mm Hg 02/28/22 05:00 ABG pO2 91.3 mm Hg (80.0-90.0) H 02/28/22 05:00 ABG HCO3 23.9 mmol/L (20.0-26.0) 02/28/22 05:00 ABG O2 Saturation 97.0 % (95.0-99.0) 02/28/22 05:00 Calcium 9.0 mg/dL (8.4-10.2) 02/28/22 03:41
[2022-02-28] MEDS ORDERED: SODIUM CHLORIDE 0.9% 100 ML IV PRN (13:30)
[2022-02-28] MEDS: methylPREDNISolone Sod Succinate 125 MG/2 ML INJ IV SCH ×2 (15:01→22:45)
[2022-02-28 15:22] LABS: Hepatitis B Surface Antigen Non-Reactive (Negative); Hepatitis C Virus Antibody Non-Reactive (NonReactive)
[2022-02-28] MEDS ORDERED: WARFARIN 2 MG TAB PO SCH (17:00)
--- NOTE | 2022-02-28 18:07 | Electrocardiograph Report ---
[facility] Test Date: 2022-02-28 Test Time: 04:28:52 Pat Name: DAISY PABON Department: Room: A477 Gender: M Hand Umbrella Tipper: AROLDO : 1940 Requested By: THOMAS AHN Order Number: [id number] Reading MD: Qiana Joyce Measurements Intervals Mobile Rate: 73 P: WI: QRS: -45 QRSD: 117 T: 122 QT: 393 QTc: 471 Interpretive Statements Sinus with frequent PACs and PVCs Left axis deviation, left anterior fascicular block Left ventricular per trophy repolarization abnormalities of LVH Compared to ECG 07/10/2021 18:05:41 No significant change Electronically Signed On 02-28-2022 18:06:39 EDT by Qiana Joyce
[2022-02-28] MEDS: IPRATROPIUM/ALBUTEROL SULFATE 3 ML AMPUL.NEB IH SCH (19:51)
[2022-02-28] MEDS: TIOTROPIUM 18 MCG CAP INHALATION IH SCH (19:51)
[2022-02-28] MEDS: LANTHANUM CARBONATE 500 MG TAB PO SCH (19:51)
[2022-02-28] MEDS: EPOETIN ALFA-EPBX 10,000 UNIT/1 ML VIAL IV PRN (20:30)
[2022-03-01] MEDS: methylPREDNISolone Sod Succinate 125 MG/2 ML INJ IV SCH ×3 (05:58→22:20)
[2022-03-01] MEDS: oxyCODONE /ACETAMINOPHEN 5-325MG TAB PO PRN ×2 (06:05→13:07)
[2022-03-01 06:21] LABS: Hematocrit 32.7 % (35.5-45.6); Hemoglobin 10.6 gm/dl (11.8-15.2); Mean Corpuscular HGB Conc 32 % (32-34); Mean Corpuscular Volume 87 fl (84-94); Platelet Count 252 K/mm3 (140-440); Red Blood Count 3.75 M/mm3 (3.65-5.03); Red Cell Distribution Width 15.4 % (13.2-15.2)
[2022-03-01 06:33] LABS: INR 3.04 (0.87-1.13)
[2022-03-01 06:40] LABS: Calcium 9.6 mg/dL (8.4-10.2)
[2022-03-01 07:23] LABS: Band Neutrophils # (Manual) 0.6 K/mm3; Basophils % (Manual) 0 % (0.0-1.8); Eosinophils % (Manual) 0 % (0.0-4.3); Total Cells Counted 100
[2022-03-01 07:25] LABS: Burr Cells Rare; Ovalocytes Rare; Platelet Estimate Consistent w Auto; Poikilocytosis Few; Spherocytes Rare
--- NOTE | 2022-03-01 08:18 | Progress Note ---
Assessment and Plan Assessment and plan: #Acute on chronic hypoxic respiratory failure -Patient uses 5 to 6 L of supplemental O2 at night -Currently on 3 L while inpatient -Discussed with patient possibility that he may require oxygen at all times -Continue bronchodilators, Robitussin for cough -Pulmonology consulted, assistance appreciated -Likely secondary to volume overload versus COPD exacerbation #COPD with exacerbation -Patient takes Spiriva, Symbicort and albuterol at home -Continue steroids, azithromycin, duo nebs and budesonide -Pulmonology following, will need follow-up at discharge #Chronic heart failure with preserved ejection fraction-not in acute exacerbatio n -Repeat echocardiogram ordered due to elevated BNP (BNP >70k) -Cardiology following, assistance appreciated #CAD s/p stenting -Continue statin and Plavix #Atrial fibrillation #Secondary coagulopathy patient on Coumadin #Therapeutic INR -Rate controlled -Continue metoprolol and warfarin #End-stage renal disease requiring hemodialysis -Patient hemodialysis Saturday/Saturday/Saturday -dialyzed yesterday -Will renally dose medications and avoid nephrotoxic -Nephrology following, assistance appreciated #AV fistula malfunction -Per HD, AV fistula not pulling full clearance for adequate volume removal -Vascular surgery consulted, plan for fistulogram tomorrow #Type II NSTEMI -Troponin 0.576 -> 0.764, will continue to trend -Recently with abnormal stress test, per cardiology no need for C at this time #Systemic inflammatory response syndrome with organ dysfunction -Leukocytosis and tachycardia -likely secondary to COPD exacerbation #Advanced care planning -Disease education conducted, care plan discussed, diagnoses discussed, prognosis discussed, and patient and at bedside acknowledges understanding with care plan -Time: +30 min History Interval history: No acute events overnight. Patient reports compliance with medications and dialysis faithfully. He wears oxygen at night primarily. Per patient has difficulty ambulating long distances although he does not wear oxygen while out. No chest pain or shortness of breath during time of interview. Hospitalist Physical - Physical exam Narrative exam: GENERAL: Well-developed well-nourished. Sitting on the side of the bed in no acute distress. HEENT: Cannula at 3 L/min NECK: Supple. CHEST/LUNGS: Expiratory crackles appreciated bilaterally posterior durand. HEART/CARDIOVASCULAR: RRR. No murmur, rubs or gallops appreciated. ABDOMEN: +BS. NT/ND. SKIN: No rashes noted. NEURO: No focal motor deficit. Follows all commands. MUSCULOSKELETAL: No joint effusion EXTREMITIES: No cyanosis, clubbing or edema. PSYCH: Cooperative. - Constitutional Vitals: Temp Pulse Resp BP Pulse Ox 98.2 F 70 18 105/50 100 03/01/22 03:36 03/01/22 06:00 03/01/22 03:36 03/01/22 03:36 03/01/22 03:36 General appearance: Present: mild distress HEART Score - HEART Score Troponin: Troponin T 0.764 ng/mL (0.00-0.029) H* D 02/28/22 14:23 Results - Labs CBC & Chem 7: 03/01/22 05:08 03/01/22 05:08 Labs: Laboratory Last Values WBC 12.4 K/mm3 (4.5-11.0) H 03/01/22 05:08 RBC 3.75 M/mm3 (3.65-5.03) 03/01/22 05:08 Hgb 10.6 gm/dl (11.8-15.2) L 03/01/22 05:08 Hct 32.7 % (35.5-45.6) L 03/01/22 05:08 MCV 87 fl (84-94) 03/01/22 05:08 MCH 28 pg (28-32) 03/01/22 05:08 MCHC 32 % (32-34) 03/01/22 05:08 RDW 15.4 % (13.2-15.2) H 03/01/22 05:08 Plt Count 252 K/mm3 (140-440) 03/01/22 05:08 Lymph % (Auto) 8.3 % (13.4-35.0) L 02/28/22 03:41 [place] % (Auto) 7.2 % (0.0-7.3) 02/28/22 03:41 Eos % (Auto) 0.9 % (0.0-4.3) 02/28/22 03:41 Baso % (Auto) 0.4 % (0.0-1.8) 02/28/22 03:41 Lymph # (Auto) 1.0 K/mm3 (1.2-5.4) L 02/28/22 03:41 [place] # (Auto) 0.9 K/mm3 (0.0-0.8) H 02/28/22 03:41 Eos # (Auto) 0.1 K/mm3 (0.0-0.4) 02/28/22 03:41 Baso # (Auto) 0.0 K/mm3 (0.0-0.1) 02/28/22 03:41 Add Manual Diff Complete 03/01/22 05:08 Total Counted 100 03/01/22 05:08 Seg Neutrophils % Digital Cartographic Technician 03/01/22 05:08 Seg Neuts % (Manual) 92.0 % (40.0-70.0) H 03/01/22 05:08 Band Neutrophils % 5.0 % 03/01/22 05:08 Lymphocytes % (Manual) 1.0 % (13.4-35.0) L 03/01/22 05:08 Reactive Lymphs % (Man) 0 % 03/01/22 05:08 Monocytes % (Manual) 2.0 % (0.0-7.3) 03/01/22 05:08 Eosinophils % (Manual) 0 % (0.0-4.3) 03/01/22 05:08 Basophils % (Manual) 0 % (0.0-1.8) 03/01/22 05:08 Metamyelocytes % 0 % 03/01/22 05:08 Myelocytes % 0 % 03/01/22 05:08 Promyelocytes % 0 % 03/01/22 05:08 Blast Cells % 0 % 03/01/22 05:08 Nucleated RBC % Not Reportable 03/01/22 05:08 Seg Neutrophils # 10.1 K/mm3 (1.8-7.7) H 02/28/22 03:41 Seg Neutrophils # Man 11.4 K/mm3 (1.8-7.7) H 03/01/22 05:08 Band Neutrophils # 0.6 K/mm3 03/01/22 05:08 Lymphocytes # (Manual) 0.1 K/mm3 (1.2-5.4) L 03/01/22 05:08 Abs React Lymphs (Man) 0.0 K/mm3 03/01/22 05:08 Monocytes # (Manual) 0.2 K/mm3 (0.0-0.8) 03/01/22 05:08 Eosinophils # (Manual) 0.0 K/mm3 (0.0-0.4) 03/01/22 05:08 Basophils # (Manual) 0.0 K/mm3 (0.0-0.1) 03/01/22 05:08 Metamyelocytes # 0.0 K/mm3 03/01/22 05:08 Myelocytes # 0.0 K/mm3 03/01/22 05:08 Promyelocytes # 0.0 K/mm3 03/01/22 05:08 Blast Cells # 0.0 K/mm3 03/01/22 05:08 WBC Morphology Not Reportable 03/01/22 05:08 Hypersegmented Neuts Not Reportable 03/01/22 05:08 Hyposegmented Neuts Not Reportable 03/01/22 05:08 Hypogranular Neuts Not Reportable 03/01/22 05:08 Smudge Cells Not Reportable 03/01/22 05:08 Toxic Granulation Not Reportable 03/01/22 05:08 Toxic Vacuolation Not Reportable 03/01/22 05:08 Dohle Bodies Not Reportable 03/01/22 05:08 Pelger-Huet Anomaly Not Reportable 03/01/22 05:08 Scarlet Rods Not Reportable 03/01/22 05:08 Platelet Estimate Consistent w auto 03/01/22 05:08 Clumped Platelets Not Reportable 03/01/22 05:08 Plt Clumps, EDTA Not Reportable 03/01/22 05:08 Large Platelets Not Reportable 03/01/22 05:08 Giant Platelets Not Reportable 03/01/22 05:08 Platelet Satelliting Not Reportable 03/01/22 05:08 Plt Morphology Comment Not Reportable 03/01/22 05:08 RBC Morphology Not Reportable 03/01/22 05:08 Dimorphic RBCs Not Reportable 03/01/22 05:08 Polychromasia Not Reportable 03/01/22 05:08 Hypochromasia Not Reportable 03/01/22 05:08 Poikilocytosis Few 03/01/22 05:08 Anisocytosis Not Reportable 03/01/22 05:08 Microcytosis Not Reportable 03/01/22 05:08 Macrocytosis Not Reportable 03/01/22 05:08 Spherocytes Rare 03/01/22 05:08 Pappenheimer Bodies Not Reportable 03/01/22 05:08 Sickle Cells Not Reportable 03/01/22 05:08 Target Cells Not Reportable 03/01/22 05:08 Tear Drop Cells Not Reportable 03/01/22 05:08 Ovalocytes Rare 03/01/22 05:08 Helmet Cells Not Reportable 03/01/22 05:08 [place] Bodies Not Reportable 03/01/22 05:08 [place] Rings Not Reportable 03/01/22 05:08 [place] Cells Rare 03/01/22 05:08 Bite Cells Not Reportable 03/01/22 05:08 Crenated Cell Not Reportable 03/01/22 05:08 Elliptocytes Not Reportable 03/01/22 05:08 Acanthocytes (Spur) Not Reportable 03/01/22 05:08 Rouleaux Not Reportable 03/01/22 05:08 Hemoglobin C Crystals Not Reportable 03/01/22 05:08 Schistocytes Not Reportable 03/01/22 05:08 Malaria parasites Not Reportable 03/01/22 05:08 Jose E Bodies Not Reportable 03/01/22 05:08 Hem Pathologist Commnt No 03/01/22 05:08 PT 35.6 Sec. (12.2-14.9) H 03/01/22 05:08 INR 3.04 (0.87-1.13) H 03/01/22 05:08 ABG pH 7.381 pH Units (7.350-7.450) 02/28/22 05:00 ABG pCO2 41.2 mm Hg 02/28/22 05:00 ABG pO2 91.3 mm Hg (80.0-90.0) H 02/28/22 05:00 ABG HCO3 23.9 mmol/L (20.0-26.0) 02/28/22 05:00 ABG O2 Saturation 97.0 % (95.0-99.0) 02/28/22 05:00 ABG O2 Content 13.5 (0.0-44) 02/28/22 05:00 ABG Base Excess -1.1 mmol/L (-2.0-3.0) 02/28/22 05:00 ABG Hemoglobin 9.9 gm/dl (14.0-18.0) L 02/28/22 05:00 ABG Carboxyhemoglobin 1.0 % (0.0-5.0) 02/28/22 05:00 ABG Methemoglobin 0.4 % (0.0-1.5) 02/28/22 05:00 Oxyhemoglobin 95.6 % (95.0-99.0) 02/28/22 05:00 FiO2 50 % 02/28/22 05:00 Sodium 137 mmol/L (137-145) 03/01/22 05:08 Potassium 5.1 mmol/L (3.6-5.0) H 03/01/22 05:08 Chloride 92.1 mmol/L (98-107) L 03/01/22 05:08 Carbon Dioxide 24 mmol/L (22-30) 03/01/22 05:08 Anion Gap 26 mmol/L 03/01/22 05:08 BUN 44 mg/dL (9-20) H 03/01/22 05:08 Creatinine 7.9 mg/dL (0.8-1.3) H 03/01/22 05:08 Estimated GFR 8 ml/min 03/01/22 05:08 BUN/Creatinine Ratio 6 % 03/01/22 05:08 Glucose 124 mg/dL (75-100) H 03/01/22 05:08 Calcium 9.6 mg/dL (8.4-10.2) 03/01/22 05:08 Total Bilirubin 0.20 mg/dL (0.1-1.2) 02/28/22 03:41 AST 18 units/L (5-40) 02/28/22 03:41 ALT 12 units/L (7-56) 02/28/22 03:41 Alkaline Phosphatase 51 units/L (35-129) 02/28/22 03:41 Total Creatine Kinase 192 units/L (55-170) H 02/28/22 03:41 CK-MB (CK-2) 7.2 ng/mL (0.0-4.0) H 02/28/22 03:41 CK-MB (CK-2) Rel Index 3.7 (0-4) 02/28/22 03:41 Troponin T 0.764 ng/mL (0.00-0.029) H* D 02/28/22 14:23 NT-Pro-B Natriuret Pep > 15791 pg/mL (0-900) H 02/28/22 03:41 Total Protein 6.9 g/dL (6.3-8.2) 02/28/22 03:41 Albumin 4.3 g/dL (3.9-5) 02/28/22 03:41 Albumin/Globulin Ratio 1.7 % 02/28/22 03:41 Triglycerides 102 mg/dL (2-149) 02/28/22 03:41 Cholesterol 147 mg/dL (50-199) 02/28/22 03:41 LDL Cholesterol Direct 73 mg/dL (50-130) 02/28/22 03:41 HDL Cholesterol 54 mg/dL (40-59) 02/28/22 03:41 Cholesterol/HDL Ratio 2.72 % 02/28/22 03:41 Lipase 48 units/L (13-60) 02/28/22 03:41 Hep Bs Antigen Non-reactive (Negative) 02/28/22 14:23 Hep B Core IgM Ab Non-reactive (NonReactive) 02/28/22 14:23 Hepatitis C Antibody Non-reactive (NonReactive) 02/28/22 14:23 [place]/IV: Voiding Method Urinal Active Medications - Current Medications Current Medications: Generic Name Dose Route Start Last Admin Trade Name Freq PRN Reason Stop Dose Admin Acetaminophen 650 mg 02/28/22 09:00 Acetaminophen 325 Mg Tab PO Q4H PRN Pain MILD(1-3)/Fever >100.5/STOLL Albuterol 2.5 mg 02/28/22 09:00 Albuterol 2.5 Mg/3 Ml Nebu IH Q4HRT PRN Shortness Of Breath Albuterol/Ipratropium 1 ampul 03/01/22 08:00 Ipratropium/Albuterol Sulfate 3 Ml Ampul.Neb IH TIDRT DARNELL Atorvastatin Calcium 10 mg 02/28/22 22:00 02/28/22 22:45 Atorvastatin 10 Mg Tab PO 10 mg QHS DARNELL Administration Budesonide 0.5 mg 02/28/22 20:00 Budesonide 0.5 Mg/2 Ml Nebu IH Q12HRT DARNELL Cholecalciferol 1,000 unit 02/28/22 10:00 02/28/22 09:50 Cholecalciferol (Vit D3) 1000 Unit (25 Mcg) Tab PO 1,000 unit DAILY DARNELL Administration Clopidogrel Bisulfate 75 mg 02/28/22 10:00 02/28/22 09:50 Clopidogrel 75 Mg Tab PO 75 mg QDAY DARNELL Administration Epoetin Eric-epbx 10,000 unit 02/28/22 09:00 02/28/22 20:30 Epoetin Eric-Epbx 10,000 Unit/1 Ml Vial IV 10,000 unit LIZANDRO PRN Administration HEMODIALYSIS Famotidine 20 mg 02/28/22 10:00 02/28/22 22:45 Famotidine 20 Mg/2 Ml Inj IV 20 mg BID DARNELL Administration Guaifenesin 10 ml 02/28/22 10:00 Guaifenesin Dm 200/20 Mg Oral Liqd 10 Ml PO QID PRN Cough Azithromycin 500 mg in 250 mls @ 250 mls/hr 02/28/22 09:00 02/28/22 09:54 Zithromax/Ns IV 250 mls/hr Q24H DARNELL Administration Sodium Chloride 100 mls @ 999 mls/hr 02/28/22 13:30 Nacl 0.9% IV LIZANDRO PRN Hypotension Lanthanum Carbonate 1,000 mg 02/28/22 16:30 02/28/22 19:51 Lanthanum Carbonate 500 Mg Tab PO Not Given BIDAC [facility] Methylprednisolone Sodium Succinate 60 mg 02/28/22 14:00 03/01/22 05:58 Methylprednisolone Sod Succinate 125 Mg/2 Ml Inj IV 60 mg Q8HR DARNELL Administration Metoprolol Tartrate 50 mg 02/28/22 10:00 02/28/22 22:46 Metoprolol Tartrate 50 Mg Tab PO 50 mg BID [facility] Administration Naloxone HCl 0.1 mg 02/28/22 09:00 Naloxone 0.4 Mg/1 Ml Inj IV Q2MIN PRN Res Rate </= 8 or 02 SAT < 92% Ondansetron HCl 4 mg 02/28/22 09:00 Ondansetron 4 Mg/2 Ml Inj IV Q8H PRN Nausea And Vomiting Oxycodone/Acetaminophen 1 tab 02/28/22 09:00 03/01/22 06:05 Oxycodone /Acetaminophen 5-325mg Tab PO 1 tab Q6H PRN Administration Pain, Moderate (4-6) Pantoprazole Sodium 40 mg 03/01/22 07:30 Pantoprazole 40 Mg Tab PO QDAC [facility] Sodium Bicarbonate 650 mg 02/28/22 10:00 02/28/22 22:45 Sodium Bicarbonate 650 Mg Tab PO 650 mg BID DARNELL Administration Sodium Chloride 10 ml 02/28/22 10:00 02/28/22 22:57 Sodium Chloride 0.9% 10 Ml Flush Syringe IV 10 ml BID DARNELL Administration Sodium Chloride 10 ml 02/28/22 09:00 Sodium Chloride 0.9% 10 Ml Flush Syringe IV PRN PRN LINE FLUSH Tiotropium [place] 2 puff 02/28/22 10:00 02/28/22 19:51 Tiotropium 18 Mcg Cap Inhalation IH Not Given DAILY [facility] Warfarin Sodium 6 mg 02/28/22 17:00 02/28/22 19:52 Warfarin 2 Mg Tab PO Not Given DAILY@1700 [facility] Protocol Nutrition/Malnutrition Assess - Dietary Evaluation Nutrition/Malnutrition Findings: Nutrition Notes Start: 02/28/22 11:20 Freq: Status: Active Protocol: Document 02/28/22 11:20 KRISTIN (Rec: 02/28/22 11:42 KRISTIN [id number]) Nutrition Notes Need for Assessment generated from: Education Initial or Follow up Assessment Current Diagnosis CKD (stage V CKD),COPD, Coronary Artery Disease, Hypertension,Respiratory Failure,Hyperlipidemia Other Pertinent Diagnosis ESRD+HD, HFpEF, NSTEMI II, SIRS, Atrial Fibrilation, NV, GERD, OA. Current Diet Renal Diet (since B 02/28). Labs/Tests 02/28: Na 135, Cl 91.4, CO2 21 , BUN 61, Crea 10.4, Glu 121. Pertinent Medications 02/28:" Vit D3, Warfarin 6 mg, others nutritionally unremarkable. Height 5 ft 10 in Weight 82.554 kg [place] Body Weight (kg) 75.45 BMI 26.1 Weight change and time frame None reported at admission. Weight Status Overweight Subjective/Other Information RD consult for warfarine use education. No reports available on Pt's PO intake of meals at the time . Pt is on Venturi Mask+, O2 saturation @ 98%, according to Physical Assessment history notes. Pt has been on Coumadin since 04/2021, not a candidaste for [employer] Education. Percent of energy/protein needs met: Prescribed Renal Diet provides for energy/protein needs (2, 072 Kcal/77 g) during LOS. Burn Absent Trauma Absent GI Symptoms None Food Allergy No Skin Integrity/Comment Assessment WNL. Minimum of two criteria No #1 Nutrition Diagnosis No nutrition diagnosis at this time Is patient on ventilator? No Is Patient Ambulatory and/or Out of Bed Yes [facility] [ 2010.827 [id number]] Calculation Used for Recommendations [facility] Additional Notes Protein: >1.2 g/Kg ABW; >100 g /day. Fluids: 1 ml/Kcal, or as per MD. Nutrition Intervention Revisit per MD consult or patient Sign Off request: Additional Comments Continue monitoring food tolerance, %PO intake of meals , and BM.
[2022-03-01] MEDS: IPRATROPIUM/ALBUTEROL SULFATE 3 ML AMPUL.NEB IH SCH ×4 (08:53→22:28)
[2022-03-01] MEDS: BUDESONIDE 0.5 MG/2 ML NEBU IH SCH ×3 (08:53→21:55)
--- NOTE | 2022-03-01 09:04 | Progress Note ---
Subjective Interval history: Patient was seen today for follow-up of multiple renal related issues, has had dialysis yesterday, feeling better Patient wants to know when he can have his fistula checked. Being older it is hard for him to go for fistula evaluation periodically his is at bedside No complaints of any chest pain pressure or shortness of breath Interdisciplinary notes that also reviewed Events of 24 hours vitals labs intake output medications were reviewed Past medical history: Reviewed Family history: Reviewed Social history: Reviewed Allergies: Reviewed Physical examination: Vitals: Reviewed HEENT: No pallor or icterus oral mucosa moist Neck: Supple no JVD no thyromegaly Chest: Bilateral clear to auscultation anteriorly Heart: Regular rate and rhythm S1-S2 heard no S3-S4 Abdomen: Soft nontender no voluntary guarding rigidity rebound Extremity: Dry skin less than 1+ peripheral edema Psychiatric: No evidence of agitation and aggression noted Dermatology: No petechial rashes Labs and x-rays: Reviewed from today Assessment and plan #End-stage kidney disease: Patient will continue to receive hemodialysis tr eatment 3 times a week on Saturday and Saturday Monitor dialysis related labs/monitor for any access issues Fluid restriction 1200 cc/day high-protein diet #Access, postdialysis potassium is still 5.1, patient likely will require angiogram of his access suspect stenosis We will consult Dr. 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: On erythropoietin 10,000 units with dialysis Hemoglobin is better at 10.6, #Bone mineral disorder and secondary hyperparathyroidism; Monitor phosphorus binders as necessary goal phosphorus less than 5-1/2 #Diet and nutrition: High-protein diet, multivitamin, Nepro, #Medication recommendation: Significantly abnormal troponin that is concerning for any cardiac event that must be ruled out this is elevated for ESRD patients All related questions have been addressed with the patient including diet lifestyle changes fluid restriction sodium restrictions avoidance of processed food as much as possible We'll continue to follow and make recommendation for renal standpoint Objective - Vital Signs Vital signs: Vital Signs - 12hr 02/28/22 02/28/22 02/28/22 22:00 22:46 22:52 Temperature Pulse Rate 89 76 86 Respiratory 18 Rate Blood Pressure 111/66 111/66 O2 Sat by Pulse 82 L 82 L Oximetry 03/01/22 03/01/22 03:36 06:00 Temperature 98.2 F Pulse Rate 82 70 Respiratory 18 Rate Blood Pressure 105/50 O2 Sat by Pulse 100 Oximetry - Lab 03/01/22 05:08 03/01/22 05:08 Most recent lab results ABG pH 7.381 pH Units (7.350-7.450) 02/28/22 05:00 ABG pCO2 41.2 mm Hg 02/28/22 05:00 ABG pO2 91.3 mm Hg (80.0-90.0) H 02/28/22 05:00 ABG HCO3 23.9 mmol/L (20.0-26.0) 02/28/22 05:00 ABG O2 Saturation 97.0 % (95.0-99.0) 02/28/22 05:00 Calcium 9.6 mg/dL (8.4-10.2) 03/01/22 05:08 Medications & Allergies - Medications Allergies/Adverse Reactions: Allergies atorvastatin calcium [From Lipitor] Allergy (Mild, Verified 02/12/21 10:43) Unknown ACHES, RASH ciprofloxacin [From Cipro] Allergy (Mild, Verified 09/23/20 12:30) Bleeding NOSE BLEED ciprofloxacin HCl [From Cipro] Allergy (Mild, Verified 09/23/20 12:30) Bleeding NOSE BLEED simvastatin Allergy (Mild, Verified 09/23/20 12:30) Unknown ACHES Home Medications: Home Medications Medication Instructions Recorded Confirmed Last Taken Type ALBUTEROL NEB's [Proventil 0.083% 2.5 mg IH Q6HRT PRN #50 nebu 09/28/20 04/25/21 04/23/21 Rx NEBS] AtorvaSTATin 10 mg PO QHS #30 tablet 09/28/20 04/25/21 04/22/21 Rx Budesonide [Pulmicort Respules] 0.5 mg IH Q12HRT #30 nebu 09/28/20 04/25/21 04/22/21 Rx Epoetin Eric 10,000 Unit [Procrit] 10,000 unit IV LIZANDRO PRN vial 09/28/20 04/24/21 02/28/21 12:39 Rx Ipratropium/Albuterol Sulfate 1 ampul IH TIDRT #50 ampul.neb 09/28/20 04/25/2121 Rx [DUONEB *Not for PRN Use*] Sodium Bicarbonate 650 mg PO BID #60 09/28/20 04/25/21 04/23/21 Rx Tiotropium [Spiriva] 2 puff IH DAILY 30 Days #1 cap 09/28/20 04/25/21 04/23/21 Rx Clopidogrel [Plavix] 75 mg PO QDAY tablet 02/13/21 04/25/21 04/22/21 Rx Cholecalciferol Vit D3 [Vitamin D3 1,000 unit PO DAILY tablet 03/03/21 04/25/21 04/23/21 Rx 1,000 UNIT TAB] Lanthanum Carbonate [Fosrenol] 1,000 mg PO BIDAC tab.chew 03/03/21 04/25/21 04/23/21 Rx Pantoprazole [Protonix TAB] 40 mg PO QDAC tablet 03/03/21 04/25/21 04/23/21 Rx Metoprolol [Lopressor TAB] 50 mg PO BID #60 tablet 03/16/21 04/25/21 04/23/21 Rx NIFEdipine [Nifedipine] 50 mg PO BID 02/28/22 02/28/22 Unknown History Active Medications: Generic Name Dose Route Start Last Admin Trade Name Freq PRN Reason Stop Dose Admin Acetaminophen 650 mg 02/28/22 09:00 Acetaminophen 325 Mg Tab PO Q4H PRN Pain MILD(1-3)/Fever >100.5/STOLL Albuterol 2.5 mg 02/28/22 09:00 Albuterol 2.5 Mg/3 Ml Nebu IH Q4HRT PRN Shortness Of Breath Albuterol/Ipratropium 1 ampul 03/01/22 08:00 03/01/22 08:53 Ipratropium/Albuterol Sulfate 3 Ml Ampul.Neb IH 1 ampul TIDRT DARNELL Administration Atorvastatin Calcium 10 mg 02/28/22 22:00 02/28/22 22:45 Atorvastatin 10 Mg Tab PO 10 mg QHS DARNELL Administration Budesonide 0.5 mg 02/28/22 20:00 03/01/22 08:55 Budesonide 0.5 Mg/2 Ml Nebu IH 0.5 mg Q12HRT DARNELL Administration Cholecalciferol 1,000 unit 02/28/22 10:00 02/28/22 09:50 Cholecalciferol (Vit D3) 1000 Unit (25 Mcg) Tab PO 1,000 unit DAILY DARNELL Administration Clopidogrel Bisulfate 75 mg 02/28/22 10:00 02/28/22 09:50 Clopidogrel 75 Mg Tab PO 75 mg QDAY DARNELL Administration Epoetin Eric-epbx 10,000 unit 02/28/22 09:00 02/28/22 20:30 Epoetin Eric-Epbx 10,000 Unit/1 Ml Vial IV 10,000 unit LIZANDRO PRN Administration HEMODIALYSIS Famotidine 20 mg 02/28/22 10:00 02/28/22 22:45 Famotidine 20 Mg/2 Ml Inj IV 20 mg BID DARNELL Administration Guaifenesin 10 ml 02/28/22 10:00 Guaifenesin Dm 200/20 Mg Oral Liqd 10 Ml PO QID PRN Cough Azithromycin 500 mg in 250 mls @ 250 mls/hr 02/28/22 09:00 02/28/22 09:54 Zithromax/Ns IV 250 mls/hr Q24H DARNELL Administration Sodium Chloride 100 mls @ 999 mls/hr 02/28/22 13:30 Nacl 0.9% IV LIZANDRO PRN Hypotension Lanthanum Carbonate 1,000 mg 02/28/22 16:30 02/28/22 19:51 Lanthanum Carbonate 500 Mg Tab PO Not Given BIDAC [facility] Methylprednisolone Sodium Succinate 60 mg 02/28/22 14:00 03/01/22 05:58 Methylprednisolone Sod Succinate 125 Mg/2 Ml Inj IV 60 mg Q8HR DARNELL Administration Metoprolol Tartrate 50 mg 02/28/22 10:00 02/28/22 22:46 Metoprolol Tartrate 50 Mg Tab PO 50 mg BID [facility] Administration Naloxone HCl 0.1 mg 02/28/22 09:00 Naloxone 0.4 Mg/1 Ml Inj IV Q2MIN PRN Res Rate </= 8 or 02 SAT < 92% Ondansetron HCl 4 mg 02/28/22 09:00 Ondansetron 4 Mg/2 Ml Inj IV Q8H PRN Nausea And Vomiting Oxycodone/Acetaminophen 1 tab 02/28/22 09:00 03/01/22 06:05 Oxycodone /Acetaminophen 5-325mg Tab PO 1 tab Q6H PRN Administration Pain, Moderate (4-6) Pantoprazole Sodium 40 mg 03/01/22 07:30 Pantoprazole 40 Mg Tab PO QDAC [facility] Sodium Bicarbonate 650 mg 02/28/22 10:00 02/28/22 22:45 Sodium Bicarbonate 650 Mg Tab PO 650 mg BID DARNELL Administration Sodium Chloride 10 ml 02/28/22 10:00 02/28/22 22:57 Sodium Chloride 0.9% 10 Ml Flush Syringe IV 10 ml BID DARNELL Administration Sodium Chloride 10 ml 02/28/22 09:00 Sodium Chloride 0.9% 10 Ml Flush Syringe IV PRN PRN LINE FLUSH Tiotropium [place] 2 puff 02/28/22 10:00 02/28/22 19:51 Tiotropium 18 Mcg Cap Inhalation IH Not Given DAILY [facility] Warfarin Sodium 6 mg 02/28/22 17:00 02/28/22 19:52 Warfarin 2 Mg Tab PO Not Given DAILY@1700 [facility] Protocol
[2022-03-01] MEDS: TIOTROPIUM 18 MCG CAP INHALATION IH SCH (10:16)
--- NOTE | 2022-03-01 11:11 | Consultation ---
History of Present Illness - Reason for Consult Consult date: 03/01/22 Dialysis access malfunction - History of Present Illness Patient with a history of end-stage renal disease on hemodialysis through a left forearm radiocephalic graft. This was placed at the MI. Patient has not had any interventions in over a year. Patient presented to the hospital with worsening shortness of breath and NSTEMI. Being evaluated by cardiology. Patient underwent successful dialysis yesterday with significant improvement in his symptoms. Past History Past Medical History: atrial fib, CAD, COPD, ESRD, GERD, hypertension, hyperlipidemia Past Surgical History: Other (Dialysis fistula) Social history: , full code Family history: no significant family history Medications and Allergies Allergies Allergy/AdvReac Type Severity Reaction Status Date / Time atorvastatin calcium Allergy Mild Unknown Verified 02/12/21 10:43 [From Lipitor] ciprofloxacin [From Cipro] Allergy Mild Bleeding Verified 09/23/20 12:30 ciprofloxacin HCl Allergy Mild Bleeding Verified 09/23/20 12:30 [From Cipro] simvastatin Allergy Mild Unknown Verified 09/23/20 12:30 Home Medications Medication Instructions Recorded Confirmed Last Taken Type ALBUTEROL NEB's [Proventil 0.083% 2.5 mg IH Q6HRT PRN #50 nebu 09/28/20 04/25/21 04/23/21 Rx NEBS] AtorvaSTATin 10 mg PO QHS #30 tablet 09/28/20 04/25/21 04/22/21 Rx Budesonide [Pulmicort Respules] 0.5 mg IH Q12HRT #30 nebu 09/28/20 04/25/21 04/22/21 Rx Epoetin Eric 10,000 Unit [Procrit] 10,000 unit IV LIZANDRO PRN vial 09/28/20 04/24/21 02/28/21 12:39 Rx Ipratropium/Albuterol Sulfate 1 ampul IH TIDRT #50 ampul.neb 09/28/20 04/25/21 04/22/21 Rx [DUONEB *Not for PRN Use*] Sodium Bicarbonate 650 mg PO BID #60 09/28/20 04/25/21 04/23/21 Rx Tiotropium [Spiriva] 2 puff IH DAILY 30 Days #1 cap 09/28/20 04/25/21 04/23/21 Rx Clopidogrel [Plavix] 75 mg PO QDAY tablet 02/13/21 04/25/21 04/22/21 Rx Cholecalciferol Vit D3 [Vitamin D3 1,000 unit PO DAILY tablet 03/03/21 04/25/21 04/23/21 Rx 1,000 UNIT TAB] Lanthanum Carbonate [Fosrenol] 1,000 mg PO BIDAC tab.chew 03/03/21 04/25/21 04/23/21 Rx Pantoprazole [Protonix TAB] 40 mg PO QDAC tablet 03/03/21 04/25/21 04/23/21 Rx Metoprolol [Lopressor TAB] 50 mg PO BID #60 tablet 03/16/21 04/25/21 04/23/21 Rx NIFEdipine [Nifedipine] 50 mg PO BID 02/28/22 02/28/22 Unknown History Active Meds: Active Medications Acetaminophen (Acetaminophen 325 Mg Tab) 650 mg PO Q4H PRN PRN Reason: Pain MILD(1-3)/Fever >100.5/STOLL Albuterol (Albuterol 2.5 Mg/3 Ml Nebu) 2.5 mg IH Q4HRT PRN PRN Reason: Shortness Of Breath Albuterol/Ipratropium (Ipratropium/Albuterol Sulfate 3 Ml Ampul.Neb) 1 ampul IH TIDRT [facility] Last Admin: 03/01/22 08:53 Dose: 1 ampul Atorvastatin Calcium (Atorvastatin 10 Mg Tab) 10 mg PO QHS [facility] Last Admin: 02/28/22 22:45 Dose: 10 mg Budesonide (Budesonide 0.5 Mg/2 Ml Nebu) 0.5 mg IH Q12HRT [facility] Last Admin: 03/01/22 08:55 Dose: 0.5 mg Cholecalciferol (Cholecalciferol (Vit D3) 1000 Unit (25 Mcg) Tab) 1,000 unit PO DAILY [facility] Last Admin: 02/28/22 09:50 Dose: 1,000 unit Clopidogrel Bisulfate (Clopidogrel 75 Mg Tab) 75 mg PO QDAY [facility] Last Admin: 02/28/22 09:50 Dose: 75 mg Epoetin Eric-epbx (Epoetin Eric-Epbx 10,000 Unit/1 Ml Vial) 10,000 unit IV LIZANDRO PRN PRN Reason: HEMODIALYSIS Last Admin: 02/28/22 20:30 Dose: 10,000 unit Famotidine (Famotidine 20 Mg/2 Ml Inj) 20 mg IV BID [facility] Last Admin: 02/28/22 22:45 Dose: 20 mg Guaifenesin (Guaifenesin Dm 200/20 Mg Oral Liqd 10 Ml) 10 ml PO QID PRN PRN Reason: Cough Azithromycin (Zithromax/Ns) 500 mg in 250 mls @ 250 mls/hr IV Q24H [facility] Last Admin: 02/28/22 09:54 Dose: 250 mls/hr Sodium Chloride (Nacl 0.9%) 100 mls @ 999 mls/hr IV LIZANDRO PRN PRN Reason: Hypotension Lanthanum Carbonate (Lanthanum Carbonate 500 Mg Tab) 1,000 mg PO BIDAC [facility] Last Admin: 02/28/22 19:51 Dose: Not Given Methylprednisolone Sodium Succinate (Methylprednisolone Sod Succinate 125 Mg/2 Ml Inj) 60 mg IV Q8HR [facility] Last Admin: 03/01/22 05:58 Dose: 60 mg Metoprolol Tartrate (Metoprolol Tartrate 50 Mg Tab) 50 mg PO BID [facility] Last Admin: 02/28/22 22:46 Dose: 50 mg Naloxone HCl (Naloxone 0.4 Mg/1 Ml Inj) 0.1 mg IV Q2MIN PRN PRN Reason: Res Rate </= 8 or 02 SAT < 92% Ondansetron HCl (Ondansetron 4 Mg/2 Ml Inj) 4 mg IV Q8H PRN PRN Reason: Nausea And Vomiting Oxycodone/Acetaminophen (Oxycodone /Acetaminophen 5-325mg Tab) 1 tab PO Q6H PRN PRN Reason: Pain, Moderate (4-6) Last Admin: 03/01/22 06:05 Dose: 1 tab Pantoprazole Sodium (Pantoprazole 40 Mg Tab) 40 mg PO QDAC [facility] Sodium Bicarbonate (Sodium Bicarbonate 650 Mg Tab) 650 mg PO BID [facility] Last Admin: 02/28/22 22:45 Dose: 650 mg Sodium Chloride (Sodium Chloride 0.9% 10 Ml Flush Syringe) 10 ml IV BID [facility] Last Admin: 02/28/22 22:57 Dose: 10 ml Sodium Chloride (Sodium Chloride 0.9% 10 Ml Flush Syringe) 10 ml IV PRN PRN PRN Reason: LINE FLUSH Tiotropium [place] (Tiotropium 18 Mcg Cap Inhalation) 2 puff IH DAILY [facility] Last Admin: 02/28/22 19:51 Dose: Not Given Warfarin Sodium (Warfarin 2 Mg Tab) 6 mg PO DAILY@1700 [facility]; Protocol Last Admin: 02/28/22 19:52 Dose: Not Given Review of Systems All systems: negative Exam - Constitutional Vitals: Temp Pulse Resp BP Pulse Ox 98.2 F 70 18 105/50 100 03/01/22 03:36 03/01/22 06:00 03/01/22 03:36 03/01/22 03:36 03/01/22 03:36 General appearance: Present: no acute distress - EENT Eyes: Present: EOM intact ENT: hearing intact - Neck Neck: Present: supple, normal ROM - Respiratory Respiratory effort: normal - Extremities Extremities: abnormal (Left forearm radiocephalic graft) - Abdominal General gastrointestinal: Present: deferred Male genitourinary: Present: deferred - Rectal Rectal Exam: deferred - Psychiatric Psychiatric: appropriate mood/affect, cooperative Results - Labs CBC & Chem 7: 03/01/22 05:08 03/01/22 05:08 Labs: Abnormal lab results 02/28/22 03/01/22 03/01/22 Range/Units 14:23 05:08 05:08 WBC 12.4 H (4.5-11.0) K/mm3 Hgb 10.6 L (11.8-15.2) gm/dl Hct 32.7 L (35.5-45.6) % RDW 15.4 H (13.2-15.2) % Seg Neuts % (Manual) 92.0 H (40.0-70.0) % Lymphocytes % (Manual) 1.0 L (13.4-35.0) % Seg Neutrophils # Man 11.4 H (1.8-7.7) K/mm3 Lymphocytes # (Manual) 0.1 L (1.2-5.4) K/mm3 PT (12.2-14.9) Sec. INR (0.87-1.13) Potassium 5.1 H (3.6-5.0) mmol/L Chloride 92.1 L (98-107) mmol/L BUN 44 H (9-20) mg/dL Creatinine 7.9 H (0.8-1.3) mg/dL Glucose 124 H (75-100) mg/dL Troponin T 0.764 H* D (0.00-0.029) ng/mL 03/01/22 Range/Units 05:08 WBC (4.5-11.0) K/mm3 Hgb (11.8-15.2) gm/dl Hct (35.5-45.6) % RDW (13.2-15.2) % Seg Neuts % (Manual) (40.0-70.0) % Lymphocytes % (Manual) (13.4-35.0) % Seg Neutrophils # Man (1.8-7.7) K/mm3 Lymphocytes # (Manual) (1.2-5.4) K/mm3 PT 35.6 H (12.2-14.9) Sec. INR 3.04 H (0.87-1.13) Potassium (3.6-5.0) mmol/L Chloride (98-107) mmol/L BUN (9-20) mg/dL Creatinine (0.8-1.3) mg/dL Glucose (75-100) mg/dL Troponin T (0.00-0.029) ng/mL Assessment and Plan Patient underwent successful dialysis yesterday. Currently undergoing cardiac evaluation. We will tentatively plan for fistulogram tomorrow as there may be some concern as poor clearances resulting in increased volume overload.
[2022-03-01] MEDS: PANTOPRAZOLE 40 MG TAB PO SCH (13:13)
[2022-03-01] MEDS: METOPROLOL TARTRATE 50 MG TAB PO SCH ×2 (13:13→22:20)
[2022-03-01] MEDS: SODIUM BICARBONATE 650 MG TAB PO SCH ×2 (13:13→22:20)
[2022-03-01] MEDS: CLOPIDOGREL 75 MG TAB PO SCH (13:15)
[2022-03-01] MEDS: FAMOTIDINE 20 MG/2 ML INJ IV SCH ×2 (13:17→22:20)
[2022-03-01] MEDS: AZITHROMYCIN/NS 500 MG/250 ML 500 MG/250 ML BAG IV SCH (13:47)
[2022-03-01] MEDS: LANTHANUM CARBONATE 500 MG TAB PO SCH ×2 (13:48→16:00)
[2022-03-01] MEDS: CHOLECALCIFEROL (VIT D3) 1000 UNIT (25 mcg) TAB PO SCH (13:55)
--- NOTE | 2022-03-01 15:32 | Progress Note ---
Assessment and Plan Acute on chronic hypoxemic respiratory failure Acute exacerbation of COPD End-stage renal disease, on dialysis Coronary artery disease NSTEMI Secondary coagulopathy Atrial fibrillation with a controlled rate Heart failure with preserved ejection fraction Osteoarthritis - supplemental oxygen to keep O2 sats > 90% - continue Bronchodilators (JESÚS & LABA) with pulm hygiene per RT - continue systemic steroids with slow taper - continue inhaled corticosteroids - continue to avoid nephrotoxins, renally dose all medications - mobility protocols to prevent pressure ulcers - PT/OT as tolerated - Wound care per RN/WCT - continue accuchecks with glycemic control per SSI for target blood glucose < 180 mg/dL - tobacco abstinence strongly counseled at the bedside - home oxygen evaluation at discharge - prn analgesia per pain score - GI & VTE prophylaxis - Flu & pneumovax per protocol - Pulmonary out patient follow up for PFTs and optimization of respiratory status - continue other care per attending / other consultants ... re-evaluate in am & prn Subjective Date of service: 03/01/22 Principal diagnosis: Ac. on Ch. hypoxemic resp failure; AE-COPD; CAD; ESRD; NSTEMI; HFpEF Interval history: Patient is seen today for: Acute on chronic hypoxemic respiratory failure; AE-CO PD; CAD; ESRD on dialysis; NSTEMI; A-Fib; HFpEF Seen and examined at bedside; 24hour events reviewed; nursing and respiratory care staff consulted; no adverse overnight events reported to me; resting peacefully in bed; denies acute chest pains or palpitations; tolerated dialysis session well; denies N/V/F/C Objective Vital Signs - 12hr 03/01/22 03/01/22 03/01/22 03:36 06:00 11:53 Temperature 98.2 F 97.6 F Pulse Rate 82 70 77 Respiratory 18 20 Rate Blood Pressure 105/50 93/50 O2 Sat by Pulse 100 98 Oximetry 03/01/22 13:13 Temperature Pulse Rate 81 Respiratory Rate Blood Pressure O2 Sat by Pulse Oximetry Constitutional: no acute distress Eyes: non-icteric ENT: oropharynx moist Neck: supple, no lymphadenopathy, no JVD Effort: mildly labored Ascultation: Bilateral: diminished breath sounds, rhonchi Percussion: Bilateral: not dull Cardiovascular: regular rate and rhythm Gastrointestinal: normoactive bowel sounds, soft, non-tender, non-distended Integumentary: normal Extremities: no cyanosis, pulses normal, no ischemia or petechiae, edema Neurologic: non-focal exam (grossly), pupils equal and round, CN II-XII normal, motor strength normal and Psychiatric: mood appropriate, affect normal CBC and BMP: 03/02/22 04:49 03/02/22 04:49 ABG, PT/INR, D-dimer: ABG ABG pH 7.381 pH Units (7.350-7.450) 02/28/22 05:00 ABG pCO2 41.2 mm Hg 02/28/22 05:00 ABG pO2 91.3 mm Hg (80.0-90.0) H 02/28/22 05:00 ABG O2 Saturation 97.0 % (95.0-99.0) 02/28/22 05:00 PT/INR, D-dimer PT 35.6 Sec. (12.2-14.9) H 03/01/22 05:08 INR 3.04 (0.87-1.13) H 03/01/22 05:08 Abnormal lab findings: Abnormal Labs 02/28/22 02/28/22 02/28/22 03:41 03:41 03:54 WBC 12.2 H Hgb 10.1 L Hct 32.2 L MCHC 31 L RDW 15.7 H Lymph % (Auto) 8.3 L Lymph # (Auto) 1.0 L [place] # (Auto) 0.9 H Seg Neutrophils % 83.2 H Seg Neuts % (Manual) Lymphocytes % (Manual) Seg Neutrophils # 10.1 H Seg Neutrophils # Man Lymphocytes # (Manual) PT 33.3 H INR 2.80 H ABG pO2 ABG Hemoglobin Sodium 135 L Potassium Chloride 91.4 L Carbon Dioxide 21 L BUN 61 H Creatinine 10.4 H Glucose 121 H Total Creatine Kinase 192 H CK-MB (CK-2) 7.2 H Troponin T 0.576 H* NT-Pro-B Natriuret Pep > 21808 H 02/28/22 02/28/22 03/01/22 05:00 14:23 05:08 WBC 12.4 H Hgb 10.6 L Hct 32.7 L MCHC RDW 15.4 H Lymph % (Auto) Lymph # (Auto) [place] # (Auto) Seg Neutrophils % Seg Neuts % (Manual) 92.0 H Lymphocytes % (Manual) 1.0 L Seg Neutrophils # Seg Neutrophils # Man 11.4 H Lymphocytes # (Manual) 0.1 L PT INR ABG pO2 91.3 H ABG Hemoglobin 9.9 L Sodium Potassium Chloride Carbon Dioxide BUN Creatinine Glucose Total Creatine Kinase CK-MB (CK-2) Troponin T 0.764 H* D NT-Pro-B Natriuret Pep 03/01/22 03/01/22 05:08 05:08 WBC Hgb Hct MCHC RDW Lymph % (Auto) Lymph # (Auto) [place] # (Auto) Seg Neutrophils % Seg Neuts % (Manual) Lymphocytes % (Manual) Seg Neutrophils # Seg Neutrophils # Man Lymphocytes # (Manual) PT 35.6 H INR 3.04 H ABG pO2 ABG Hemoglobin Sodium Potassium 5.1 H Chloride 92.1 L Carbon Dioxide BUN 44 H Creatinine 7.9 H Glucose 124 H Total Creatine Kinase CK-MB (CK-2) Troponin T NT-Pro-B Natriuret Pep Allied health notes reviewed: nursing
--- NOTE | 2022-03-01 15:54 | Progress Note ---
Assessment and Plan Patient is [id number] male, who follows with Dr. West, with end-stage renal disease on HD MWF, hypertension, hyperlipidemia, and CAD with known lesion in proximal LAD and PCI of left circumflex with occasional shortness of breath, paroxysmal A. fib (on Coumadin), home o2 (4-5 L prn) who presents to [facility] today with complaints of nonproductive cough that began 1 week ago and he was progressively worsening over the past few days Acute on chronic HFrEF (25-30) NSTEMI Acute COPD Exacerbation vs acute respiratory failure CAD (s/p PCI - on plaxiv) Paroxysmal Afib (on coumadin) ESRD on HD Elevated BNP - echo pending H/o chronically elevated troponin H/o pericardial effusion Outpatient medications: Albuterol 2.5 mg, inhaled as needed, Plavix 75 mg p.o. daily, ferrous fumarate 325 mg p.o. daily, Fosrenol 1000 mg oral tab twice daily, metoprolol 12.5 mg p.o. twice daily, nifedipine 90 mg p.o. as needed, rosuvastatin 10 mg p.o. daily, Spiriva respimat 2.5 mcg/inh 2 puffs inhaled daily, spironolactone 25 mg p.o. twice daily, warfarin 5 mg PO daily, vitamin D3 1000 units p.o. daily, Symbicort 80 mcgs-4.5 mcgs/inh, 2 puffs inhaled twice daily Echocardiogram 02/28/2022: EF 25 to 30%. Left ventricle is mildly dilated. Severe global hypokinesis of left ventricle particularly apical area. Right ventricle systolic function is mildly reduced. Left atrium is borderline dilated. Moderate tricuspid regurgitation Echo 03/14/2021: Left ventricular systolic function is normal. Mild concentric left ventricular hypertrophy. LVEF is 50 to 55%. Mild to moderate circumferential pericardial effusion. No echocardiographic evidence of tamponade physiology. This represents significant improvement when compared to TTE 03/03/2021. Large left pleural effusion. Lexiscan Stress Test02/15/2022 impressions: 1. Pharmacologic stress nuclear study is abnormal 2. There is a mildly reduced perfusion defect of small size in the mid anterior wall. There are moderately reduced perfusion defect of small to medium size and apical wall. There are moderately reduced perfusion defects of medium size in the lateral wall. The defect in the anterior segment is fixed. The defect in the apical segment is fixed. The defect in the lateral segment is partially reversible. 3. Abnormal SPECT perfusion imaging with ischemia in the lateral segment. 4. Stress EKG test results normal. 5. The calcified rest EF is at 30%. Calculated stress EF is at 31%.Recommendations: Due to findings clinical correlation is recommended Cardiac cath: 02/14/2021- rota of left circumflex stents: Resolute [place] 3.0 x 38 mm and unable to open OM1 Cath 02/13/2021: 1. Poba of the circumflex, but it unable to deliver stent secondary to calcification. The patient be transferred to [place] for rotational atherectomy. OM1 patent. OM 200%. OM 3 patent. RCA mid ectatic vessels with in-stent restenosis 20%, PDA patent.2. Left main distal 20%, LAD proximal 60 to 70%, stent patent, diagonal 1 ostial 90%. Rest of LAD patent 3. Normal LV. The patient will be loaded with Plavix. Discussed this function with the patient and the patient's family. Cardiac cath 08/29/2018: Left main large and patent LAD proximal mid stent patent diagonal 1 ostial 80% mid LAD patent. Circumflex is patent with mid stent widely patent. OM1 ostial 80 to 90% patent RCA, patent stents and normal LV function. Plan: EKG shows sinus 73 with PACs and PVCs no acute ischemic changes Recent Abnormal nuclear lexiscan mpi in office. Reviewed with attending; no urgent need for LHC given location of abnormalities and known hx of lesions. Will await improvement in volume and clinical status via HD and reassess over next 1-2 days GDMT: Continue Metoprolol 50 PO BID, plavix 75 mg PO qday, spirinalactone 25 mg PO qday, and Coumadin PO Unable to order statin- rosuvastain not on formulary and pt with allergy to atorvastatin and simvastatin. No Donovan/ARB/ARNi in setting of ESRD Fluid status optimization via HD and per nephrology Discussed with patient abnormal stress and echo results and the need for cardiac cath however patient reports that he does not want a cardiac cath at this time and wants to follow-up with Dr. West as an outpatient before proceeding with cardiac cath Cardiac status otherwise stable we will see as needed Follow-up appointment 03/19/2022 at [facility] in [place] with Dr. West Patient seen and examined in conjunction with Dr. Samuel, who agrees with assessment and plan of care. - Patient Problems (1) Acute exacerbation of chronic obstructive pulmonary disease (COPD) Current Visit: Yes Status: Acute (2) NSTEMI (non-ST elevation myocardial infarction) Current Visit: Yes Status: Acute (3) Anticoagulated on Coumadin Current Visit: Yes Status: Chronic (4) CAD (coronary artery disease) Current Visit: Yes Status: Chronic Qualifiers: Coronary Disease-Associated Artery/Lesion type: unspecified vessel or lesion type [place] vs. transplanted heart: [place] heart Associated angina: angina presence unspecified (5) COPD (chronic obstructive pulmonary disease) Current Visit: Yes Status: Chronic (6) Acute exacerbation of CHF (congestive heart failure) Current Visit: No Status: Acute (7) Acute on chronic renal failure Current Visit: No Status: Acute Subjective Date of service: 03/01/22 Principal diagnosis: NSTEMI, acute on chronic HFrEF, volume overload Interval history: Patient resting in bed in no acute distress. Patient reports feeling well today denies any complaints of chest pain Patient sinus 77 on monitor with PVCs Objective Vital Signs Temp Pulse Resp BP Pulse Ox Pulse Ox 03/01/22 13:13 81 03/01/22 11:53 97.6 F 77 20 93/50 98 03/01/22 06:00 70 03/01/22 03:36 98.2 F 82 18 105/50 100 02/28/22 22:52 86 18 111/66 82 L 02/28/22 22:46 76 111/66 02/28/22 22:00 89 82 L 02/28/22 20:55 98.0 F 82 18 128/67 100 02/28/22 20:30 78 123/72 02/28/22 20:15 75 136/56 02/28/22 20:00 89 117/36 02/28/22 19:45 85 139/56 02/28/22 19:30 84 120/65 02/28/22 19:15 59 L 129/77 02/28/22 19:00 84 148/79 02/28/22 18:45 89 137/80 02/28/22 18:30 89 137/80 02/28/22 18:15 75 155/86 02/28/22 18:00 78 141/80 02/28/22 17:45 94 H 132/79 02/28/22 17:30 116 H 148/83 02/28/22 17:15 83 146/80 02/28/22 17:05 90 141/85 02/28/22 16:42 98.2 F 90 20 133/87 100 02/28/22 16:10 108/84 97 02/28/22 16:00 108/84 99 - Physical Examination General: No Apparent Distress HEENT: Positive: Mucus Membranes Moist Neck: Positive: JVD/HJR Cardiac: Positive: Reg Rate and Rhythm Lungs: Positive: Normal Breath Sounds Neuro: Positive: Grossly Intact Abdomen: Positive: Soft, Active Bowel Sounds Skin: Positive: Other (puncture sites to LFA fistula ) Extremities: Present: normal. Absent: edema - Labs and Meds Coagulation 03/01/22 Range/Units 05:08 PT 35.6 H (12.2-14.9) Sec. INR 3.04 H (0.87-1.13) CBC 03/01/22 Range/Units 05:08 WBC 12.4 H (4.5-11.0) K/mm3 RBC 3.75 (3.65-5.03) M/mm3 Hgb 10.6 L (11.8-15.2) gm/dl Hct 32.7 L (35.5-45.6) % Plt Count 252 (140-440) K/mm3 Comprehensive Metabolic Panel 03/01/22 Range/Units 05:08 Sodium 137 (137-145) mmol/L Potassium 5.1 H (3.6-5.0) mmol/L Chloride 92.1 L (98-107) mmol/L Carbon Dioxide 24 (22-30) mmol/L BUN 44 H (9-20) mg/dL Creatinine 7.9 H (0.8-1.3) mg/dL Glucose 124 H (75-100) mg/dL Calcium 9.6 (8.4-10.2) mg/dL - Imaging and Cardiology EKG: report reviewed Echo: report reviewed - Telemetry EKG Rhythm: Sinus Rhythm - EKG Sinus rhythms and dysrhythmias: sinus rhythm Supraventricular dysrhythmia: atrial premature complexe Ventricular dysrhythmias: ventricular premature com - Allied health notes Allied health notes reviewed: nursing
--- NOTE | 2022-03-01 16:12 | Consultation ---
DATE OF CONSULTATION: 02/28/2022 PULMONARY CRITICAL CARE CONSULT NOTE CONSULTING PHYSICIAN: Dr. Dinesh Smith. REASON FOR CONSULTATION: Acute hypoxemic respiratory failure. CHIEF COMPLAINT AND HISTORY OF PRESENTING ILLNESS: As follows: The patient is a 81-year-old male with a past medical history significant amongst other things for a diagnosis of chronic obstructive pulmonary disease for which he tells me he is home oxygen dependent, usually on about 4-5 liters nasal cannula, but also history of end-stage renal disease, on dialysis Saturday, Saturday, and Saturday, and a history of heart failure with preserved ejection fraction. He came into the Emergency Room complaining of a persistent cough that has been going on for the past week with a sensation of having some phlegm stuck at the back of his throat. He stated he was more short of breath than his baseline. He had to go up as high at 8 liters and still was not feeling good. So, he came into the Emergency Room. In the Emergency Room, he was evaluated. Amongst other things, he denied any constitutional symptoms, fever, chills, nausea, vomiting or diarrhea. He denied any chest pain. He denied any new-onset leg pain or swelling, either unilaterally or bilaterally. He denied any increased phlegm production. He stated he had been compliant with his medications. He had not missed any dialysis sessions as far as he could tell. He denies any recent long distance travel or history of venous thromboembolic disease. This really is as much of the history of his presentation. We are asked to assist with management. When I stopped by to see him, he was resting in bed. He was on supplemental oxygen. He was on a Ventimask at 50% FiO2. He denied any chest pain, pleuritic or otherwise. He denied palpitations. When asked about tobacco use or abuse history, he denies any current tobacco use or abuse. He is unable to give me a quantification of past use. This really is as much of the history of presentation as I have. PAST MEDICAL HISTORY: Chronic obstructive lung disease, home oxygen dependent, coronary artery disease, hyperlipidemia, end-stage renal disease on dialysis, paroxysmal atrial fibrillation, heart failure with preserved ejection fraction. He is on home Coumadin therapy. PAST SURGICAL HISTORY: He has had a dialysis fistula placed. MEDICATIONS: He was on at the time I stopped by to see him, according to the medication administration record included the following: He was on albuterol nebulizer treatments 2.5 mg nebulized q. 4 hours p.r.n. shortness of breath, Tylenol 650 mg p.o. q. 6 hours p.r.n. mild pain or fevers, DuoNeb nebulizer treatments were scheduled q. 6 hours, atorvastatin 10 mg p.o. at bedtime, Pulmicort 0.5 mg nebulized q. 12 hours, vitamin D3 1000 units p.o. daily, Plavix 75 mg p.o. daily, p.r.n. epoetin with dialysis, Pepcid 20 mg IV b.i.d., guaifenesin 10 mL p.o. q.i.d. p.r.n. cough, azithromycin 500 mg IV daily, Lanthanum carbonate 500 mg tablet 1000 p.o. b.i.d., Solu-Medrol 60 mg IV q. 8 hours, Zofran 4 mg IV q. 6 hours p.r.n. nausea and vomiting, Percocet 5/325 one tablet p.o. q. 6 hours p.r.n. moderate pain, Protonix 40 mg p.o. daily, sodium bicarbonate 650 mg p.o. b.i.d., Spiriva 18 mcg 2 puffs inhaled daily, warfarin 6 mg p.o. daily. ALLERGIES: CIPROFLOXACIN, ZOCOR. NATURE OF THIS ALLERGY IS UNKNOWN. DIET: He is a well built gentleman. Denies acute weight loss or gain in the preceding few weeks to months. FAMILY AND SOCIAL HISTORY: Lives in the community. No current alcohol, tobacco or illicit drug use or abuse. No pertinent family history at this point. REVIEW OF SYSTEMS: No loss of consciousness. No new onset seizures. No new onset focal weakness. Denies gross hematochezia or melena. Denies gross hematuria or dysuria. He denies polydipsia or polyuria. Denies heat or cold intolerance. Denies any new-onset seizures. Denies new onset focal weakness. Complete 13-system review of system was obtained. Pertinent positives and/or negatives as in body of history above, otherwise they are noncontributory. PHYSICAL EXAMINATION: VITAL SIGNS: At presentation, temperature 98.4 degrees Fahrenheit, pulse of 84, respiratory rate of 18, blood pressure 132/81, O2 sats were 96% at the time I saw him on 50% FiO2. GENERAL: He is a well-built elderly male. Normocephalic, atraumatic. Talking to me in full sentences, but definitely with mildly increased respiratory effort at rest. HEAD, EYES, EARS, NOSE AND THROAT: Anicteric. No conjunctival erythema. Oropharynx was moist. NECK: No gross jugular venous distention, no thyromegaly. Grossly, there were no palpable lymph nodes in the supraclavicular or submandibular lymph node chains. LUNGS: Auscultation of both lung durand revealed diminished bilateral breath sounds, prolonged expiratory phase, however, clear bilaterally. HEART: Sounds 1 and 2 are heard at the time of my evaluation, irregularly irregular; however, without overt tachycardia. No rubs or murmurs. ABDOMEN: Soft, full, bowel sounds are positive, nontender, no palpable hepatosplenomegaly. EXTREMITIES: Without overt digital clubbing or cyanosis, no pedal edema. Pedal pulses are 2+ bilaterally. NEUROLOGIC: Pupils are equal, round, about 4 mm, reactive to light. Extraocular muscle movements are intact. He moves all 4 extremities spontaneously. SKIN: Normal turgor without overt cellulitis or rash in the areas I examined. I believe he has a left upper extremity AV graft. Please see the wound care nurses' notes for full description of his skin. PSYCHIATRIC: Mood was normal. Affect was appropriate. He had intact judgment and insight. LABORATORY DATA: From my review are as follows: White cell count 12,200, hemoglobin 10.1, hematocrit 32.2, platelet count 219. No manual differential. INR 2.60. Arterial blood gas showed a pH of 7.38, pCO2 of 41, pO2 of 91 that was on 50% FiO2. Serum sodium was 135, potassium 5.0, chloride 91, bicarbonate 21, BUN 61, creatinine 7.4, glucose was 121. Troponin was up at 0.576. BNP was greater than 70,000. LDL cholesterol was 73. Liver function tests essentially within normal limits. Hepatitis C serologies are negative to date. Hepatitis A IgM antibody was pending. Radiographic studies have been reviewed. A chest x-ray was done. I have reviewed the report, I am unable to pull up the film at this point, it is described as showing no acute abnormality. An echocardiogram has been done, the report is pending. ASSESSMENT: 1. Acute on chronic hypoxemic respiratory failure. 2. Acute exacerbation of chronic obstructive pulmonary disease. 3. End-stage renal disease, on dialysis. 4. Coronary artery disease, status post stenting. 5. Non-ST elevation myocardial infarction, type 2. 6. Secondary coagulopathy. 7. Atrial fibrillation with a controlled rate. 8. Heart failure with preserved ejection fraction. 9. History of osteoarthritis. PLAN: I do agree with current treatment as likely acute exacerbation of chronic obstructive pulmonary disease. I will review the chest x-ray, but there is no report of any overt pulmonary edema. We will continue systemic steroids with a slow taper. We will continue long-acting bronchodilators along with an inhaled corticosteroids. Oxygen will be weaned to keep O2 sats greater than or equal to about 90%. Noninvasive ventilation will be offered on a p.r.n. basis for increased work of breathing or shortness of breath. He is due to be dialyzed today. I would defer to them. Acute coronary syndrome workup is being done. We will follow the 2D echo. No need for venous thromboembolic disorder workup with him having therapeutic anticoagulation at this point in time. We will treat empirically with azithromycin monotherapy for possible exacerbation of chronic obstructive pulmonary disease. He is appropriately on GI prophylaxis. He is fully anticoagulated. Flu and pneumonia vaccination will be addressed per protocol. We will defer to Nephrology for dialysis prescription. Thank you very much for the consult. We will follow along and make further recommendations as picture progresses/becomes clearer. TID: [id number] RECEIPT: [id number] DAREN/LANA/ASHLEY
[2022-03-01] MEDS ORDERED: WARFARIN NO DOSE TODAY PO NR (17:00)
[2022-03-01] MEDS: ARFORMOTEROL 15 MCG/2 ML NEBU IH SCH (21:54)
[2022-03-02 05:07] LABS: Hematocrit 31.6 % (35.5-45.6); Mean Corpuscular HGB Conc 32 % (32-34); Mean Corpuscular Volume 87 fl (84-94); Platelet Count 238 K/mm3 (140-440); Red Blood Count 3.63 M/mm3 (3.65-5.03); Red Cell Distribution Width 15.7 % (13.2-15.2)
[2022-03-02 05:17] LABS: INR 3.04 (0.87-1.13)
[2022-03-02 05:31] LABS: Calcium 9.4 mg/dL (8.4-10.2)
[2022-03-02] MEDS: methylPREDNISolone Sod Succinate 125 MG/2 ML INJ IV SCH (05:34)
--- NOTE | 2022-03-02 07:47 | Progress Note ---
Assessment and Plan Patient is 81 YO Male with COPD, CAD, S/P Stent Placement, HLD, ESRD on HD M/W/F, HTN, Hyperlipidemia, Paroxysmal Atrial Fibrillation currently on therapeutic anticoagulation with Coumadin, [place], Diastolic CHF, OA, COPD chronic hypoxia on home oxygen [facility] with complaint of persistent cough that has been ongoing for the past week with sensation of phlegm stuck at the back of his throat. He also reports worsening shortness of breath he is normally on 4 to 5 L of oxygen at home but last night had to go up to 8 L prior to presenting to the ED. in the ED he was given steroids and nebulizer treatment and placed on a full Venturi mask. His saturation is 100% . He denies any fever nausea vomiting or diarrhea he denies any chest pain or leg swelling. He denies any change in his medications or diet . He reports compliance with his dialysis. Patient has history of prostate cance in remission. Patient has history of smoking,. Denies akcohol or drug abuse. 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 Allergic to Atorvastatin, simvastatin, Cipro. Patient awake and on 2 litres O2. O2 saturation 96%. No acute respiratory distress. Patient afebrile. Has mild leukocytosis. Blood pressure 108/67, pulse 83, Respirations 20. Patients INR 3.04 03/02/22 Chest xray obtained 02/28/22 reported No acute abnormality of the chest. Patient is on I/V solumedrol, Zithromax, Brovana/Budesonide aerosol treatments, DUOneb aerosol treatments PRN, Protonix. I spent critical care time of 35 minutes in obtaining history, review the chart, examine the patient, review labs, chest xray, talking to the nursing and respiratory staff and work out plan of treatment in this critically ill patient with multiple medical problems. - Patient Problems (1) Acute exacerbation of chronic obstructive pulmonary disease (COPD) Current Visit: Yes Status: Acute Plan to address problem: O2 2 litres via nasal canula. On I/V solumedrol. Brovanna/Budesonide aerosol treatments. Albuterol/atrovent aerosol treatments q 6 hours prn for shortness of breath. On zithromax. Continue Protonix. Patients to days INR 3.04 (2) Acute on chronic heart failure with preserved ejection fraction (HFpEF) Current Visit: Yes Status: Acute Plan to address problem: Management as per cardiology. (3) NSTEMI (non-ST elevation myocardial infarction) Current Visit: Yes Status: Acute Plan to address problem: Management as per cardiology. (4) End-stage renal disease on hemodialysis Current Visit: Yes Status: Chronic Plan to address problem: Management as per nephrology. (5) Anemia Current Visit: No Status: Acute Qualifiers: Anemia type: unspecified type Qualified Code(s): D64.9 - Anemia, unspe cified Plan to address problem: Management as per primary care Hematology and nephrology. (6) Atrial fibrillation with rapid ventricular response Current Visit: No Status: Acute Plan to address problem: Management as per cardiology. Patients to days INR 3.04. Subjective Date of service: 03/02/22 Principal diagnosis: NSTEMI, acute on chronic HFrEF, volume overload Interval history: Patient is 81 YO Male with COPD, CAD, S/P Stent Placement, HLD, ESRD on HD M/W/F, HTN, Hyperlipidemia, Paroxysmal Atrial Fibrillation currently on therapeutic anticoagulation with Coumadin, [place], Diastolic CHF, OA, COPD chronic hypoxia on home oxygen gets [facility] care [facility] presents to the ED with complaint of persistent cough that has been ongoing for the past week with sensation of phlegm stuck at the back of his throat. He also reports worsening shortness of breath he is normally on 4 to 5 L of oxygen at home but last night had to go up to 8 L prior to presenting to the ED. in the ED he was given steroids and nebulizer treatment and placed on a full Venturi mask. His saturation is 100% . He denies any fever nausea vomiting or diarrhea he denies any chest pain or leg swelling. He denies any change in his medications or diet . He reports compliance with his dialysis. Patient has history of prostate cance in remission. Patient has history of smoking,. Denies akcohol or drug abuse. 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 Allergic to Atorvastatin, simvastatin, Cipro. Patient awake and on 2 litres O2. O2 saturation 96%. No acute respiratory distress. Patient afebrile. Has mild leukocytosis. Blood pressure 108/67, pulse 83, Respirations 20. Patients INR 3.04 03/02/22 Chest xray obtained 02/28/22 reported No acute abnormality of the chest. Patient is on I/V solumedrol, Zithromax, Brovana/Budesonide aerosol treatments, DUOneb aerosol treatments PRN, Protonix. Objective Vital Signs - 12hr 03/01/22 03/01/22 03/01/22 20:56 21:56 21:57 Temperature 98.1 F Pulse Rate 83 Pulse Rate [ 87 Bilateral Throughout] Respiratory 20 Rate Respiratory 18 Rate [Bilateral Throughout] Blood Pressure 96/53 O2 Sat by Pulse 98 98 Oximetry 03/01/22 03/01/22 03/02/22 22:00 23:36 05:09 Temperature 98.0 F 97.9 F Pulse Rate 76 83 Pulse Rate [ Bilateral Throughout] Respiratory 16 20 Rate Respiratory Rate [Bilateral Throughout] Blood Pressure 112/67 108/67 O2 Sat by Pulse 82 L 96 96 Oximetry Constitutional: no acute distress, alert Eyes: non-icteric ENT: oropharynx moist Neck: supple, no lymphadenopathy, no JVD Effort: mildly labored Ascultation: Bilateral: diminished breath sounds, rhonchi Percussion: Bilateral: not dull Cardiovascular: regular rate and rhythm Gastrointestinal: normoactive bowel sounds, soft, non-tender, non-distended Integumentary: normal Extremities: no cyanosis, pulses normal, no ischemia or petechiae, edema Neurologic: non-focal exam (grossly), pupils equal and round, CN II-XII normal, motor strength normal and Psychiatric: mood appropriate, affect normal CBC and BMP: 03/02/22 04:49 03/02/22 04:49 ABG, PT/INR, D-dimer: ABG ABG pH 7.381 pH Units (7.350-7.450) 02/28/22 05:00 ABG pCO2 41.2 mm Hg 02/28/22 05:00 ABG pO2 91.3 mm Hg (80.0-90.0) H 02/28/22 05:00 ABG O2 Saturation 97.0 % (95.0-99.0) 02/28/22 05:00 PT/INR, D-dimer PT 35.6 Sec. (12.2-14.9) H 03/02/22 04:49 INR 3.04 (0.87-1.13) H 03/02/22 04:49 Abnormal lab findings: Abnormal Labs 02/28/22 02/28/22 02/28/22 03:41 03:41 03:54 WBC 12.2 H RBC Hgb 10.1 L Hct 32.2 L MCHC 31 L RDW 15.7 H Lymph % (Auto) 8.3 L Lymph # (Auto) 1.0 L [place] # (Auto) 0.9 H Seg Neutrophils % 83.2 H Seg Neuts % (Manual) Lymphocytes % (Manual) Seg Neutrophils # 10.1 H Seg Neutrophils # Man Lymphocytes # (Manual) PT 33.3 H INR 2.80 H ABG pO2 ABG Hemoglobin Sodium 135 L Potassium Chloride 91.4 L Carbon Dioxide 21 L BUN 61 H Creatinine 10.4 H Glucose 121 H Total Creatine Kinase 192 H CK-MB (CK-2) 7.2 H Troponin T 0.576 H* NT-Pro-B Natriuret Pep > 73465 H 02/28/22 02/28/22 03/01/22 05:00 14:23 05:08 WBC 12.4 H RBC Hgb 10.6 L Hct 32.7 L MCHC RDW 15.4 H Lymph % (Auto) Lymph # (Auto) [place] # (Auto) Seg Neutrophils % Seg Neuts % (Manual) 92.0 H Lymphocytes % (Manual) 1.0 L Seg Neutrophils # Seg Neutrophils # Man 11.4 H Lymphocytes # (Manual) 0.1 L PT INR ABG pO2 91.3 H ABG Hemoglobin 9.9 L Sodium Potassium Chloride Carbon Dioxide BUN Creatinine Glucose Total Creatine Kinase CK-MB (CK-2) Troponin T 0.764 H* D NT-Pro-B Natriuret Pep 03/01/22 03/01/22 03/02/22 05:08 05:08 04:49 WBC RBC Hgb Hct MCHC RDW Lymph % (Auto) Lymph # (Auto) [place] # (Auto) Seg Neutrophils % Seg Neuts % (Manual) Lymphocytes % (Manual) Seg Neutrophils # Seg Neutrophils # Man Lymphocytes # (Manual) PT 35.6 H 35.6 H INR 3.04 H 3.04 H ABG pO2 ABG Hemoglobin Sodium Potassium 5.1 H Chloride 92.1 L Carbon Dioxide BUN 44 H Creatinine 7.9 H Glucose 124 H Total Creatine Kinase CK-MB (CK-2) Troponin T NT-Pro-B Natriuret Pep 03/02/22 03/02/22 04:49 04:49 WBC 12.2 H RBC 3.63 L Hgb 10.0 L Hct 31.6 L MCHC RDW 15.7 H Lymph % (Auto) Lymph # (Auto) [place] # (Auto) Seg Neutrophils % Seg Neuts % (Manual) Lymphocytes % (Manual) Seg Neutrophils # Seg Neutrophils # Man Lymphocytes # (Manual) PT INR ABG pO2 ABG Hemoglobin Sodium 131 L Potassium 5.1 H Chloride 88.8 L Carbon Dioxide BUN 74 H Creatinine 10.2 H Glucose 136 H Total Creatine Kinase CK-MB (CK-2) Troponin T 1.200 H* D NT-Pro-B Natriuret Pep Chest x-ray: report reviewed, image reviewed Additional Studies: CHEST 1 VIEW 02/28/2022 3:30 AM INDICATION / CLINICAL INFORMATION: Dyspnea. COMPARISON: One view of the chest from 07/10/2021. FINDINGS: SUPPORT DEVICES: None. HEART / MEDIASTINUM: No significant abnormality. LUNGS / PLEURA: No significant pulmonary abnormality. No significant pleural effusion. No pneumothorax. ADDITIONAL FINDINGS: No significant additional findings. IMPRESSION: 1. No acute abnormality of the chest. Allied health notes reviewed: nursing
[2022-03-02] MEDS: METOPROLOL TARTRATE 50 MG TAB PO SCH ×3 (10:00→23:50)
[2022-03-02] MEDS: LANTHANUM CARBONATE 500 MG TAB PO SCH ×2 (10:00→16:38)
[2022-03-02] MEDS ORDERED: SODIUM CHLORIDE 0.9% 100 ML IV PRN (10:00)
[2022-03-02] MEDS: PANTOPRAZOLE 40 MG TAB PO SCH (10:01)
[2022-03-02] MEDS: AZITHROMYCIN/NS 500 MG/250 ML 500 MG/250 ML BAG IV SCH (10:02)
[2022-03-02] MEDS: BUDESONIDE 0.5 MG/2 ML NEBU IH SCH ×2 (10:49→22:31)
[2022-03-02] MEDS: IPRATROPIUM/ALBUTEROL SULFATE 3 ML AMPUL.NEB IH SCH ×3 (10:49→22:31)
[2022-03-02] MEDS: ARFORMOTEROL 15 MCG/2 ML NEBU IH SCH ×2 (10:49→22:31)
[2022-03-02] MEDS: TIOTROPIUM 18 MCG CAP INHALATION IH SCH (11:00)
--- NOTE | 2022-03-02 12:45 | Progress Note ---
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: On erythropoietin 10,000 units with dialysis #Bone mineral disorder and secondary hyperparathyroidism; Monitor phosphorus binders as necessary goal phosphorus less than 5-1/2 #Diet and nutrition: High-protein diet, multivitamin, Nepro, #Medication recommendation: Significantly abnormal troponin that is concerning for any cardiac event that must be ruled out this is elevated for ESRD patients Subjective Date of service: 03/02/22 Principal diagnosis: NSTEMI, acute on chronic HFrEF, volume overload Interval history: resting in bed today, no acute events Vitals: Reviewed HEENT: No pallor or icterus oral mucosa moist Neck: Supple no JVD no thyromegaly Chest: Bilateral clear to auscultation anteriorly Heart: Regular rate and rhythm S1-S2 heard no S3-S4 Abdomen: Soft nontender no voluntary guarding rigidity rebound Extremity: Dry skin less than 1+ peripheral edema Psychiatric: No evidence of agitation and aggression noted Dermatology: No petechial rashes Labs and x-rays: Reviewed from today Objective - Vital Signs Vital signs: Vital Signs - 12hr 03/02/22 03/02/22 03/02/22 05:09 07:58 10:49 Temperature 97.9 F 97.7 F Pulse Rate 83 71 Pulse Rate [ 69 Bilateral Throughout] Respiratory 20 Rate Respiratory 18 Rate [Bilateral Throughout] Blood Pressure 108/67 100/59 O2 Sat by Pulse 96 96 99 Oximetry - Lab 03/02/22 04:49 03/02/22 04:49 Most recent lab results ABG pH 7.381 pH Units (7.350-7.450) 02/28/22 05:00 ABG pCO2 41.2 mm Hg 02/28/22 05:00 ABG pO2 91.3 mm Hg (80.0-90.0) H 02/28/22 05:00 ABG HCO3 23.9 mmol/L (20.0-26.0) 02/28/22 05:00 ABG O2 Saturation 97.0 % (95.0-99.0) 02/28/22 05:00 Calcium 9.4 mg/dL (8.4-10.2) 03/02/22 04:49 Medications & Allergies - Medications Allergies/Adverse Reactions: Allergies atorvastatin calcium [From Lipitor] Allergy (Mild, Verified 02/12/21 10:43) Unknown ACHES, RASH ciprofloxacin [From Cipro] Allergy (Mild, Verified 09/23/20 12:30) Bleeding NOSE BLEED ciprofloxacin HCl [From Cipro] Allergy (Mild, Verified 09/23/20 12:30) Bleeding NOSE BLEED simvastatin Allergy (Mild, Verified 09/23/20 12:30) Unknown ACHES Home Medications: Home Medications Medication Instructions Recorded Confirmed Last Taken Type ALBUTEROL NEB's [Proventil 0.083% 2.5 mg IH Q6HRT PRN #50 nebu 09/28/20 04/25/21 04/23/21 Rx NEBS] AtorvaSTATin 10 mg PO QHS #30 tablet 09/28/20 04/25/21 04/22/21 Rx Budesonide [Pulmicort Respules] 0.5 mg IH Q12HRT #30 nebu 09/28/20 04/25/21 04/22/21 Rx Epoetin Eric 10,000 Unit [Procrit] 10,000 unit IV LIZANDRO PRN vial 09/28/20 04/24/21 02/28/21 12:39 Rx Ipratropium/Albuterol Sulfate 1 ampul IH TIDRT #50 ampul.neb 09/28/20 04/25/21 04/22/21 Rx [DUONEB *Not for PRN Use*] Sodium Bicarbonate 650 mg PO BID #60 09/28/20 04/25/21 04/23/21 Rx Tiotropium [Spiriva] 2 puff IH DAILY 30 Days #1 cap 09/28/20 04/25/21 04/23/21 Rx Clopidogrel [Plavix] 75 mg PO QDAY tablet 02/13/21 04/25/21 04/22/21 Rx Cholecalciferol Vit D3 [Vitamin D3 1,000 unit PO DAILY tablet 03/03/21 04/25/21 04/23/21 Rx 1,000 UNIT TAB] Lanthanum Carbonate [Fosrenol] 1,000 mg PO BIDAC tab.chew 03/03/21 04/25/2121 Rx Pantoprazole [Protonix TAB] 40 mg PO QDAC tablet 03/03/21 04/25/21 04/23/21 Rx Metoprolol [Lopressor TAB] 50 mg PO BID #60 tablet 03/16/21 04/25/21 04/23/21 Rx NIFEdipine [Nifedipine] 50 mg PO BID 02/28/22 02/28/22 Unknown History Active Medications: Generic Name Dose Route Start Last Admin Trade Name Freq PRN Reason Stop Dose Admin Acetaminophen 650 mg 02/28/22 09:00 Acetaminophen 325 Mg Tab PO Q4H PRN Pain MILD(1-3)/Fever >100.5/STOLL Albuterol 2.5 mg 02/28/22 09:00 Albuterol 2.5 Mg/3 Ml Nebu IH Q4HRT PRN Shortness Of Breath Albuterol/Ipratropium 1 ampul 03/01/22 08:00 03/02/22 10:49 Ipratropium/Albuterol Sulfate 3 Ml Ampul.Neb IH 1 ampul TIDRT DARNELL Administration Arformoterol Tartrate 15 mcg 03/01/22 20:00 03/02/22 10:49 Arformoterol 15 Mcg/2 Ml Nebu IH 15 mcg Q12HRT DARNELL Administration Atorvastatin Calcium 10 mg 02/28/22 22:00 03/01/22 22:20 Atorvastatin 10 Mg Tab PO 10 mg QHS DARNELL Administration Budesonide 0.5 mg 02/28/22 20:00 03/02/22 10:49 Budesonide 0.5 Mg/2 Ml Nebu IH 0.5 mg Q12HRT DARNELL Administration Cholecalciferol 1,000 unit 02/28/22 10:00 03/01/22 13:55 Cholecalciferol (Vit D3) 1000 Unit (25 Mcg) Tab PO 1,000 unit DAILY DARNELL Administration Clopidogrel Bisulfate 75 mg 02/28/22 10:00 03/01/22 13:15 Clopidogrel 75 Mg Tab PO 75 mg QDAY DARNELL Administration Epoetin Eric-epbx 10,000 unit 02/28/22 09:00 02/28/22 20:30 Epoetin Eric-Epbx 10,000 Unit/1 Ml Vial IV 10,000 unit LIZANDRO PRN Administration HEMODIALYSIS Guaifenesin 10 ml 02/28/22 10:00 Guaifenesin Dm 200/20 Mg Oral Liqd 10 Ml PO QID PRN Cough Azithromycin 500 mg in 250 mls @ 250 mls/hr 02/28/22 09:00 03/02/22 10:02 Zithromax/Ns IV 03/04/22 09:59 250 mls/hr Q24H DARNELL Administration Sodium Chloride 100 mls @ 999 mls/hr 03/02/22 10:00 Nacl 0.9% IV LIZANDRO PRN Hypotension Lanthanum Carbonate 1,000 mg 02/28/22 16:30 03/02/22 10:00 Lanthanum Carbonate 500 Mg Tab PO Not Given BIDAC DARNELL Methylprednisolone Sodium Succinate 60 mg 02/28/22 14:00 03/02/22 05:34 Methylprednisolone Sod Succinate 125 Mg/2 Ml Inj IV 60 mg Q8HR DARNELL Administration Metoprolol Tartrate 50 mg 02/28/22 10:00 03/01/22 22:20 Metoprolol Tartrate 50 Mg Tab PO 50 mg BID DARNELL Administration Naloxone HCl 0.1 mg 02/28/22 09:00 Naloxone 0.4 Mg/1 Ml Inj IV Q2MIN PRN Res Rate </= 8 or 02 SAT < 92% Ondansetron HCl 4 mg 02/28/22 09:00 Ondansetron 4 Mg/2 Ml Inj IV Q8H PRN Nausea And Vomiting Oxycodone/Acetaminophen 1 tab 02/28/22 09:00 03/01/22 13:07 Oxycodone /Acetaminophen 5-325mg Tab PO 1 tab Q6H PRN Administration Pain, Moderate (4-6) Pantoprazole Sodium 40 mg 03/01/22 07:30 03/02/22 10:01 Pantoprazole 40 Mg Tab PO Not Given QDAC DARNELL Sodium Bicarbonate 650 mg 02/28/22 10:00 03/01/22 22:20 Sodium Bicarbonate 650 Mg Tab PO 650 mg BID DARNELL Administration Sodium Chloride 10 ml 02/28/22 10:00 03/01/22 22:21 Sodium Chloride 0.9% 10 Ml Flush Syringe IV 10 ml BID DARNELL Administration Sodium Chloride 10 ml 02/28/22 09:00 Sodium Chloride 0.9% 10 Ml Flush Syringe IV PRN PRN LINE FLUSH Tiotropium [place] 2 puff 02/28/22 10:00 03/01/22 10:16 Tiotropium 18 Mcg Cap Inhalation IH Not Given DAILY DARNELL
--- NOTE | 2022-03-02 13:07 | Progress Note ---
Assessment and Plan Assessment and plan: #Acute on chronic hypoxic respiratory failure -Patient uses 5 to 6 L of supplemental O2 at night -Currently on 3 L while inpatient -Discussed with patient possibility that he may require oxygen at all times -Continue bronchodilators, Robitussin for cough -Pulmonology consulted, assistance appreciated -Likely secondary to volume overload versus COPD exacerbation #COPD with exacerbation -Patient takes Spiriva, Symbicort and albuterol at home -Continue steroids, azithromycin, duo nebs and budesonide -Pulmonology following, will need follow-up at discharge #Chronic heart failure with preserved ejection fraction-not in acute exacerbatio n -Repeat echocardiogram ordered due to elevated BNP (BNP >70k) -Cardiology following, assistance appreciated #CAD s/p stenting -Continue statin and Plavix #Atrial fibrillation #Secondary coagulopathy patient on Coumadin #Therapeutic INR -Rate controlled -Continue metoprolol and warfarin #End-stage renal disease requiring hemodialysis -Patient hemodialysis Saturday/Saturday/Saturday -dialyzed yesterday -Will renally dose medications and avoid nephrotoxic -Nephrology following, assistance appreciated #AV fistula malfunction -Per HD, AV fistula not pulling full clearance for adequate volume removal -Vascular surgery consulted, plan for fistulogram today #Type II NSTEMI -Troponin 0.576 -> 0.764, will continue to trend -Recently with abnormal stress test, patient declines [facility] at this time would prefer to Cath by his Primary [place] -Cardiology following, assistance appreciated #Systemic inflammatory response syndrome with organ dysfunction -Leukocytosis and tachycardia -likely secondary to COPD exacerbation #Advanced care planning -Disease education conducted, care plan discussed, diagnoses discussed, prognosis discussed, and patient and at bedside acknowledges understanding with care plan -Time: +30 min History Interval history: No acute events overnight. Patient reports feeling well and eager to leave. Awaiting vascular surgery intervention. Hospitalist Physical - Physical exam Narrative exam: GENERAL: Well-developed well-nourished. Sitting on the side of the bed in no acute distress. HEENT: Cannula at 3 L/min NECK: Supple. CHEST/LUNGS: Coarse breath sounds bilaterally HEART/CARDIOVASCULAR: RRR. No murmur, rubs or gallops appreciated. ABDOMEN: +BS. NT/ND. SKIN: No rashes noted. NEURO: No focal motor deficit. Follows all commands. MUSCULOSKELETAL: No joint effusion EXTREMITIES: No cyanosis, clubbing or edema. PSYCH: Cooperative. - Constitutional Vitals: Temp Pulse Resp BP Pulse Ox 97.7 F 69 18 100/59 99 03/02/22 07:58 03/02/22 10:49 03/02/22 10:49 03/02/22 07:58 03/02/22 10:49 General appearance: Present: mild distress HEART Score - HEART Score Troponin: Troponin T 1.200 ng/mL (0.00-0.029) H* D 03/02/22 04:49 Results - Labs CBC & Chem 7: 03/02/22 04:49 03/02/22 04:49 Labs: Laboratory Last Values WBC 12.2 K/mm3 (4.5-11.0) H 03/02/22 04:49 RBC 3.63 M/mm3 (3.65-5.03) L 03/02/22 04:49 Hgb 10.0 gm/dl (11.8-15.2) L 03/02/22 04:49 Hct 31.6 % (35.5-45.6) L 03/02/22 04:49 MCV 87 fl (84-94) 03/02/22 04:49 MCH 28 pg (28-32) 03/02/22 04:49 MCHC 32 % (32-34) 03/02/22 04:49 RDW 15.7 % (13.2-15.2) H 03/02/22 04:49 Plt Count 238 K/mm3 (140-440) 03/02/22 04:49 Lymph % (Auto) 8.3 % (13.4-35.0) L 02/28/22 03:41 [place] % (Auto) 7.2 % (0.0-7.3) 02/28/22 03:41 Eos % (Auto) 0.9 % (0.0-4.3) 02/28/22 03:41 Baso % (Auto) 0.4 % (0.0-1.8) 02/28/22 03:41 Lymph # (Auto) 1.0 K/mm3 (1.2-5.4) L 02/28/22 03:41 [place] # (Auto) 0.9 K/mm3 (0.0-0.8) H 02/28/22 03:41 Eos # (Auto) 0.1 K/mm3 (0.0-0.4) 02/28/22 03:41 Baso # (Auto) 0.0 K/mm3 (0.0-0.1) 02/28/22 03:41 Add Manual Diff Complete 03/01/22 05:08 Total Counted 100 03/01/22 05:08 Seg Neutrophils % [place] 03/01/22 05:08 Seg Neuts % (Manual) 92.0 % (40.0-70.0) H 03/01/22 05:08 Band Neutrophils % 5.0 % 03/01/22 05:08 Lymphocytes % (Manual) 1.0 % (13.4-35.0) L 03/01/22 05:08 Reactive Lymphs % (Man) 0 % 03/01/22 05:08 Monocytes % (Manual) 2.0 % (0.0-7.3) 03/01/22 05:08 Eosinophils % (Manual) 0 % (0.0-4.3) 03/01/22 05:08 Basophils % (Manual) 0 % (0.0-1.8) 03/01/22 05:08 Metamyelocytes % 0 % 03/01/22 05:08 Myelocytes % 0 % 03/01/22 05:08 Promyelocytes % 0 % 03/01/22 05:08 Blast Cells % 0 % 03/01/22 05:08 Nucleated RBC % Not Reportable 03/01/22 05:08 Seg Neutrophils # 10.1 K/mm3 (1.8-7.7) H 02/28/22 03:41 Seg Neutrophils # Man 11.4 K/mm3 (1.8-7.7) H 03/01/22 05:08 Band Neutrophils # 0.6 K/mm3 03/01/22 05:08 Lymphocytes # (Manual) 0.1 K/mm3 (1.2-5.4) L 03/01/22 05:08 Abs React Lymphs (Man) 0.0 K/mm3 03/01/22 05:08 Monocytes # (Manual) 0.2 K/mm3 (0.0-0.8) 03/01/22 05:08 Eosinophils # (Manual) 0.0 K/mm3 (0.0-0.4) 03/01/22 05:08 Basophils # (Manual) 0.0 K/mm3 (0.0-0.1) 03/01/22 05:08 Metamyelocytes # 0.0 K/mm3 03/01/22 05:08 Myelocytes # 0.0 K/mm3 03/01/22 05:08 Promyelocytes # 0.0 K/mm3 03/01/22 05:08 Blast Cells # 0.0 K/mm3 03/01/22 05:08 WBC Morphology Not Reportable 03/01/22 05:08 Hypersegmented Neuts Not Reportable 03/01/22 05:08 Hyposegmented Neuts Not Reportable 03/01/22 05:08 Hypogranular Neuts Not Reportable 03/01/22 05:08 Smudge Cells Not Reportable 03/01/22 05:08 Toxic Granulation Not Reportable 03/01/22 05:08 Toxic Vacuolation Not Reportable 03/01/22 05:08 Dohle Bodies Not Reportable 03/01/22 05:08 Pelger-Huet Anomaly Not Reportable 03/01/22 05:08 Scarlet Rods Not Reportable 03/01/22 05:08 Platelet Estimate Consistent w auto 03/01/22 05:08 Clumped Platelets Not Reportable 03/01/22 05:08 Plt Clumps, EDTA Not Reportable 03/01/22 05:08 Large Platelets Not Reportable 03/01/22 05:08 Giant Platelets Not Reportable 03/01/22 05:08 Platelet Satelliting Not Reportable 03/01/22 05:08 Plt Morphology Comment Not Reportable 03/01/22 05:08 RBC Morphology Not Reportable 03/01/22 05:08 Dimorphic RBCs Not Reportable 03/01/22 05:08 Polychromasia Not Reportable 03/01/22 05:08 Hypochromasia Not Reportable 03/01/22 05:08 Poikilocytosis Few 03/01/22 05:08 Anisocytosis Not Reportable 03/01/22 05:08 Microcytosis Not Reportable 03/01/22 05:08 Macrocytosis Not Reportable 03/01/22 05:08 Spherocytes Rare 03/01/22 05:08 Pappenheimer Bodies Not Reportable 03/01/22 05:08 Sickle Cells Not Reportable 03/01/22 05:08 Target Cells Not Reportable 03/01/22 05:08 Tear Drop Cells Not Reportable 03/01/22 05:08 Ovalocytes Rare 03/01/22 05:08 Helmet Cells Not Reportable 03/01/22 05:08 [place] Bodies Not Reportable 03/01/22 05:08 [place] Rings Not Reportable 03/01/22 05:08 [place] Cells Rare 03/01/22 05:08 Bite Cells Not Reportable 03/01/22 05:08 Crenated Cell Not Reportable 03/01/22 05:08 Elliptocytes Not Reportable 03/01/22 05:08 Acanthocytes (Spur) Not Reportable 03/01/22 05:08 Rouleaux Not Reportable 03/01/22 05:08 Hemoglobin C Crystals Not Reportable 03/01/22 05:08 Schistocytes Not Reportable 03/01/22 05:08 Malaria parasites Not Reportable 03/01/22 05:08 Jose E Bodies Not Reportable 03/01/22 05:08 Hem Pathologist Commnt No 03/01/22 05:08 PT 35.6 Sec. (12.2-14.9) H 03/02/22 04:49 INR 3.04 (0.87-1.13) H 03/02/22 04:49 ABG pH 7.381 pH Units (7.350-7.450) 02/28/22 05:00 ABG pCO2 41.2 mm Hg 02/28/22 05:00 ABG pO2 91.3 mm Hg (80.0-90.0) H 02/28/22 05:00 ABG HCO3 23.9 mmol/L (20.0-26.0) 02/28/22 05:00 ABG O2 Saturation 97.0 % (95.0-99.0) 02/28/22 05:00 ABG O2 Content 13.5 (0.0-44) 02/28/22 05:00 ABG Base Excess -1.1 mmol/L (-2.0-3.0) 02/28/22 05:00 ABG Hemoglobin 9.9 gm/dl (14.0-18.0) L 02/28/22 05:00 ABG Carboxyhemoglobin 1.0 % (0.0-5.0) 02/28/22 05:00 ABG Methemoglobin 0.4 % (0.0-1.5) 02/28/22 05:00 Oxyhemoglobin 95.6 % (95.0-99.0) 02/28/22 05:00 FiO2 50 % 02/28/22 05:00 Sodium 131 mmol/L (137-145) L 03/02/22 04:49 Potassium 5.1 mmol/L (3.6-5.0) H 03/02/22 04:49 Chloride 88.8 mmol/L (98-107) L 03/02/22 04:49 Carbon Dioxide 23 mmol/L (22-30) 03/02/22 04:49 Anion Gap 24 mmol/L 03/02/22 04:49 BUN 74 mg/dL (9-20) H 03/02/22 04:49 Creatinine 10.2 mg/dL (0.8-1.3) H 03/02/22 04:49 Estimated GFR 6 ml/min 03/02/22 04:49 BUN/Creatinine Ratio 7 % 03/02/22 04:49 Glucose 136 mg/dL (75-100) H 03/02/22 04:49 Calcium 9.4 mg/dL (8.4-10.2) 03/02/22 04:49 Total Bilirubin 0.20 mg/dL (0.1-1.2) 02/28/22 03:41 AST 18 units/L (5-40) 02/28/22 03:41 ALT 12 units/L (7-56) 02/28/22 03:41 Alkaline Phosphatase 51 units/L (35-129) 02/28/22 03:41 Total Creatine Kinase 192 units/L (55-170) H 02/28/22 03:41 CK-MB (CK-2) 7.2 ng/mL (0.0-4.0) H 02/28/22 03:41 CK-MB (CK-2) Rel Index 3.7 (0-4) 02/28/22 03:41 Troponin T 1.200 ng/mL (0.00-0.029) H* D 03/02/22 04:49 NT-Pro-B Natriuret Pep > 82582 pg/mL (0-900) H 02/28/22 03:41 Total Protein 6.9 g/dL (6.3-8.2) 02/28/22 03:41 Albumin 4.3 g/dL (3.9-5) 02/28/22 03:41 Albumin/Globulin Ratio 1.7 % 02/28/22 03:41 Triglycerides 102 mg/dL (2-149) 02/28/22 03:41 Cholesterol 147 mg/dL (50-199) 02/28/22 03:41 LDL Cholesterol Direct 73 mg/dL (50-130) 02/28/22 03:41 HDL Cholesterol 54 mg/dL (40-59) 02/28/22 03:41 Cholesterol/HDL Ratio 2.72 % 02/28/22 03:41 Lipase 48 units/L (13-60) 02/28/22 03:41 Hep Bs Antigen Non-reactive (Negative) 02/28/22 14:23 Hep B Core IgM Ab Non-reactive (NonReactive) 02/28/22 14:23 Hepatitis C Antibody Non-reactive (NonReactive) 02/28/22 14:23 [place]/IV: Voiding Method Urinal Active Medications - Current Medications Current Medications: Generic Name Dose Route Start Last Admin Trade Name Freq PRN Reason Stop Dose Admin Acetaminophen 650 mg 02/28/22 09:00 Acetaminophen 325 Mg Tab PO Q4H PRN Pain MILD(1-3)/Fever >100.5/STOLL Albuterol 2.5 mg 02/28/22 09:00 Albuterol 2.5 Mg/3 Ml Nebu IH Q4HRT PRN Shortness Of Breath Albuterol/Ipratropium 1 ampul 03/01/22 08:00 03/02/22 10:49 Ipratropium/Albuterol Sulfate 3 Ml Ampul.Neb IH 1 ampul TIDRT DARNELL Administration Arformoterol Tartrate 15 mcg 03/01/22 20:00 03/02/22 10:49 Arformoterol 15 Mcg/2 Ml Nebu IH 15 mcg Q12HRT DARNELL Administration Atorvastatin Calcium 10 mg 02/28/22 22:00 03/01/22 22:20 Atorvastatin 10 Mg Tab PO 10 mg QHS DARNELL Administration Budesonide 0.5 mg 02/28/22 20:00 03/02/22 10:49 Budesonide 0.5 Mg/2 Ml Nebu IH 0.5 mg Q12HRT DARNELL Administration Cholecalciferol 1,000 unit 02/28/22 10:00 03/01/22 13:55 Cholecalciferol (Vit D3) 1000 Unit (25 Mcg) Tab PO 1,000 unit DAILY DARNELL Administration Clopidogrel Bisulfate 75 mg 02/28/22 10:00 03/01/22 13:15 Clopidogrel 75 Mg Tab PO 75 mg QDAY DARNELL Administration Epoetin Eric-epbx 10,000 unit 02/28/22 09:00 02/28/22 20:30 Epoetin Eric-Epbx 10,000 Unit/1 Ml Vial IV 10,000 unit LIZANDRO PRN Administration HEMODIALYSIS Guaifenesin 10 ml 02/28/22 10:00 Guaifenesin Dm 200/20 Mg Oral Liqd 10 Ml PO QID PRN Cough Azithromycin 500 mg in 250 mls @ 250 mls/hr 02/28/22 09:00 03/02/22 10:02 Zithromax/Ns IV 03/04/22 09:59 250 mls/hr Q24H DARNELL Administration Sodium Chloride 100 mls @ 999 mls/hr 03/02/22 10:00 Nacl 0.9% IV LIZANDRO PRN Hypotension Lanthanum Carbonate 1,000 mg 02/28/22 16:30 03/02/22 10:00 Lanthanum Carbonate 500 Mg Tab PO Not Given [facility] Methylprednisolone Sodium Succinate 60 mg 02/28/22 14:00 03/02/22 05:34 Methylprednisolone Sod Succinate 125 Mg/2 Ml Inj IV 60 mg Q8HR DARNELL Administration Metoprolol Tartrate 50 mg 02/28/22 10:00 03/01/22 22:20 Metoprolol Tartrate 50 Mg Tab PO 50 mg BID DARNELL Administration Naloxone HCl 0.1 mg 02/28/22 09:00 Naloxone 0.4 Mg/1 Ml Inj IV Q2MIN PRN Res Rate </= 8 or 02 SAT < 92% Ondansetron HCl 4 mg 02/28/22 09:00 Ondansetron 4 Mg/2 Ml Inj IV Q8H PRN Nausea And Vomiting Oxycodone/Acetaminophen 1 tab 02/28/22 09:00 03/01/22 13:07 Oxycodone /Acetaminophen 5-325mg Tab PO 1 tab Q6H PRN Administration Pain, Moderate (4-6) Pantoprazole Sodium 40 mg 03/01/22 07:30 03/02/22 10:01 Pantoprazole 40 Mg Tab PO Not Given QDAC DARNELL Sodium Bicarbonate 650 mg 02/28/22 10:00 03/01/22 22:20 Sodium Bicarbonate 650 Mg Tab PO 650 mg BID DARNELL Administration Sodium Chloride 10 ml 02/28/22 10:00 03/01/22 22:21 Sodium Chloride 0.9% 10 Ml Flush Syringe IV 10 ml BID DARNELL Administration Sodium Chloride 10 ml 02/28/22 09:00 Sodium Chloride 0.9% 10 Ml Flush Syringe IV PRN PRN LINE FLUSH Tiotropium [place] 2 puff 02/28/22 10:00 03/01/22 10:16 Tiotropium 18 Mcg Cap Inhalation IH Not Given DAILY DARNELL Nutrition/Malnutrition Assess - Dietary Evaluation Nutrition/Malnutrition Findings: Nutrition Notes Start: 02/28/22 11:20 Freq: Status: Active Protocol: Document 02/28/22 11:20 KRISTIN (Rec: 02/28/22 11:42 KRISTIN [id number]) Nutrition Notes Need for Assessment generated from: Education Initial or Follow up Assessment Current Diagnosis CKD (stage V CKD),COPD, Coronary Artery Disease, Hypertension,Respiratory Failure,Hyperlipidemia Other Pertinent Diagnosis ESRD+HD, HFpEF, NSTEMI II, SIRS, Atrial Fibrilation, PR, GERD, OA. Current Diet Renal Diet (since B 02/28). Labs/Tests 02/28: Na 135, Cl 91.4, CO2 21 , BUN 61, Crea 10.4, Glu 121. Pertinent Medications 02/28:" Vit D3, Warfarin 6 mg, others nutritionally unremarkable. Height 5 ft 10 in Weight 82.554 kg [place] Body Weight (kg) 75.45 BMI 26.1 Weight change and time frame None reported at admission. Weight Status Overweight Subjective/Other Information RD consult for warfarine use education. No reports available on Pt's PO intake of meals at the time . Pt is on Venturi Mask+, O2 saturation @ 98%, according to Physical Assessment history notes. Pt has been on Coumadin since 04/2021, not a candidaste for [employer]. Percent of energy/protein needs met: Prescribed Renal Diet provides for energy/protein needs (2, 072 Kcal/77 g) during LOS. Burn Absent Trauma Absent GI Symptoms None Food Allergy No Skin Integrity/Comment Assessment WNL. Minimum of two criteria No #1 Nutrition Diagnosis No nutrition diagnosis at this time Is patient on ventilator? No Is Patient Ambulatory and/or Out of Bed Yes REE-(Rosa Avalos-ambulatory/OOB) [ 2010.827 [id number]] Calculation Used for Recommendations [place] Aval[place] Additional Notes Protein: >1.2 g/Kg ABW; >100 g /day. Fluids: 1 ml/Kcal, or as per MD. Nutrition Intervention Revisit per MD consult or patient Sign Off request: Additional Comments Continue monitoring food tolerance, %PO intake of meals , and BM.
--- NOTE | 2022-03-02 16:06 | Event Note ---
Date: 03/02/22 Patient with elevated troponins that continue to rise. Patient is declining cardiac cath at this time. Will cancel elective fistulagram until he has cardiac cath or cleared for FGA.
[2022-03-02] MEDS: CHOLECALCIFEROL (VIT D3) 1000 UNIT (25 mcg) TAB PO SCH (16:37)
[2022-03-02] MEDS: SODIUM BICARBONATE 650 MG TAB PO SCH ×2 (16:37→22:48)
[2022-03-02] MEDS: CLOPIDOGREL 75 MG TAB PO SCH (16:37)
[2022-03-02] MEDS ORDERED: WARFARIN NO DOSE TODAY PO NR (17:00)
[2022-03-02] MEDS: oxyCODONE /ACETAMINOPHEN 5-325MG TAB PO PRN (22:55)
[2022-03-03 07:55] LABS: INR 1.91 (0.87-1.13)
[2022-03-03] MEDS: ARFORMOTEROL 15 MCG/2 ML NEBU IH SCH ×2 (08:00→21:50)
[2022-03-03] MEDS: BUDESONIDE 0.5 MG/2 ML NEBU IH SCH ×2 (08:00→21:50)
[2022-03-03] MEDS: IPRATROPIUM/ALBUTEROL SULFATE 3 ML AMPUL.NEB IH SCH ×3 (08:00→21:50)
[2022-03-03 08:12] LABS: Calcium 9.5 mg/dL (8.4-10.2)
[2022-03-03] MEDS: AZITHROMYCIN/NS 500 MG/250 ML 500 MG/250 ML BAG IV SCH (09:03)
[2022-03-03] MEDS: PANTOPRAZOLE 40 MG TAB PO SCH (09:03)
[2022-03-03] MEDS: LANTHANUM CARBONATE 500 MG TAB PO SCH ×2 (09:03→16:47)
[2022-03-03] MEDS: METOPROLOL TARTRATE 50 MG TAB PO SCH ×2 (09:05→21:02)
[2022-03-03] MEDS: CHOLECALCIFEROL (VIT D3) 1000 UNIT (25 mcg) TAB PO SCH (09:05)
[2022-03-03] MEDS: methylPREDNISolone Sod Succinate 125 MG/2 ML INJ IV SCH (09:05)
[2022-03-03] MEDS: CLOPIDOGREL 75 MG TAB PO SCH (09:05)
[2022-03-03] MEDS: SODIUM BICARBONATE 650 MG TAB PO SCH ×2 (09:05→21:02)
--- NOTE | 2022-03-03 09:40 | Progress Note ---
Assessment and Plan Patient is [id number] male, who follows with Dr. West, with end-stage renal disease on HD MWF, hypertension, hyperlipidemia, and CAD with known lesion in proximal LAD and PCI of left circumflex with occasional shortness of breath, paroxysmal A. fib (on Coumadin), home o2 (4-5 L prn) who presents to [facility] today with complaints of nonproductive cough that began 1 week ago and he was progressively worsening over the past few days A. fib with VVR Acute on chronic HFrEF (25-30) Acute COPD Exacerbation vs acute respiratory failure CAD (s/p PCI - on plavix) Paroxysmal Afib (on coumadin) ESRD on HD H/o chronically elevated troponin H/o pericardial effusion Outpatient medications: Albuterol 2.5 mg, inhaled as needed, Plavix 75 mg p.o. daily, ferrous fumarate 325 mg p.o. daily, Fosrenol 1000 mg oral tab twice daily, metoprolol 12.5 mg p.o. twice daily, nifedipine 90 mg p.o. as needed, rosuvastatin 10 mg p.o. daily, Spiriva respimat 2.5 mcg/inh 2 puffs inhaled daily, spironolactone 25 mg p.o. twice daily, warfarin 5 mg PO daily, vitamin D3 1000 units p.o. daily, Symbicort 80 mcgs-4.5 mcgs/inh, 2 puffs inhaled twice daily Echocardiogram 02/28/2022: EF 25 to 30%. Left ventricle is mildly dilated. Severe global hypokinesis of left ventricle particularly apical area. Right ventricle systolic function is mildly reduced. Left atrium is borderline dilated. Moderate tricuspid regurgitation Echo 03/14/2021: Left ventricular systolic function is normal. Mild concentric left ventricular hypertrophy. LVEF is 50 to 55%. Mild to moderate circumferential pericardial effusion. No echocardiographic evidence of tampo nade physiology. This represents significant improvement when compared to TTE 03/03/2021. Large left pleural effusion. Lexiscan Stress Test02/15/2022 impressions: 1. Pharmacologic stress nuclear study is abnormal 2. There is a mildly reduced perfusion defect of small size in the mid anterior wall. There are moderately reduced perfusion defect of small to medium size and apical wall. There are moderately reduced perfusion defects of medium size in the lateral wall. The defect in the anterior segment is fixed. The defect in the apical segment is fixed. The defect in the lateral segment is partially reversible. 3. Abnormal SPECT perfusion imaging with ischemia in the lateral segment. 4. Stress EKG test results normal. 5. The calcified rest EF is at 30%. Calculated stress EF is at 31%.Recommendations: Due to findings clinical correlation is recommended Cardiac cath: 02/14/2021- rota of left circumflex stents: Resolute [place] 3.0 x 38 mm and unable to open OM1 Cath 02/13/2021: 1. Poba of the circumflex, but it unable to deliver stent secondary to calcification. The patient be transferred to [facility] for rotational atherectomy. OM1 patent. OM 200%. OM 3 patent. RCA mid ectatic vessels with in-stent restenosis 20%, PDA patent.2. Left main distal 20%, LAD proximal 60 to 70%, stent patent, diagonal 1 ostial 90%. Rest of LAD patent 3. Normal LV. The patient will be loaded with Plavix. Discussed this function with the patient and the patient's family. Cardiac cath 08/29/2018: Left main large and patent LAD proximal mid stent patent diagonal 1 ostial 80% mid LAD patent. Circumflex is patent with mid stent widely patent. OM1 ostial 80 to 90% patent RCA, patent stents and normal LV function. Plan: Patient developed paroxysmal atrial fibrillation this morning. Blood pressure is soft and will start IV amiodarone. Continue anticoagulation. Discussed with the patient, nurse, and hospitalist at bedside. Patient would like to go home; obviously, I explained to him that this is not reasonable at this point given his elevated heart rate. Patient declined cardiac catheterization earlier this week. He is clinically stable without chest pain. Subjective Principal diagnosis: NSTEMI, acute on chronic HFrEF, volume overload Interval history: No symptoms. Wants to go home. Sitting up eating. Nurse at bedside. Objective Vital Signs Temp Pulse Pulse Resp Resp BP Pulse Ox 03/03/22 09:05 80 92/65 03/03/22 08:00 72 18 98 03/03/22 07:57 97.5 F L 64 18 92/65 98 03/03/22 03:59 98.9 F 85 18 112/71 99 03/02/22 23:37 97.9 F 74 18 84/40 98 03/02/22 22:00 98 03/02/22 21:00 98.2 F 71 18 98/50 03/02/22 20:30 85 103/62 03/02/22 20:15 81 95/59 03/02/22 20:00 61 64 18 102/59 03/02/22 19:45 72 100/58 03/02/22 19:30 69 107/66 03/02/22 19:15 72 104/55 03/02/22 19:00 70 105/59 03/02/22 18:45 64 96/50 03/02/22 18:30 73 107/51 03/02/22 18:15 79 103/53 03/02/22 18:00 79 95/41 03/02/22 17:45 75 101/48 03/02/22 17:30 97.6 F 81 18 104/59 03/02/22 15:23 97.6 F 80 91/49 98 03/02/22 14:05 74 18 03/02/22 14:00 80 03/02/22 11:00 72 18 03/02/22 10:49 69 18 99 03/02/22 10:00 82 L Pulse Ox 03/03/22 09:05 03/03/22 08:00 03/03/22 07:57 03/03/22 03:59 03/02/22 23:37 03/02/22 22:00 03/02/22 21:00 99 03/02/22 20:30 03/02/22 20:15 03/02/22 20:00 03/02/22 19:45 03/02/22 19:30 03/02/22 19:15 03/02/22 19:00 03/02/22 18:45 03/02/22 18:30 03/02/22 18:15 03/02/22 18:00 03/02/22 17:45 03/02/22 17:30 98 03/02/22 15:23 03/02/22 14:05 03/02/22 14:00 03/02/22 11:00 03/02/22 10:49 03/02/22 10:00 - Physical Examination General: No Apparent Distress HEENT: Positive: Mucus Membranes Moist Neck: Positive: JVD/HJR Neuro: Positive: Grossly Intact Abdomen: Positive: Soft, Active Bowel Sounds Skin: Positive: Other (puncture sites to LFA fistula ) Extremities: Present: normal. Absent: edema - Labs and Meds Coagulation 03/03/22 Range/Units 06:32 PT 24.3 H (12.2-14.9) Sec. INR 1.91 H (0.87-1.13) Comprehensive Metabolic Panel 03/03/22 Range/Units 06:32 Sodium 136 L (137-145) mmol/L Potassium 4.0 D (3.6-5.0) mmol/L Chloride 90.3 L (98-107) mmol/L Carbon Dioxide 27 (22-30) mmol/L BUN 45 H (9-20) mg/dL Creatinine 7.3 H (0.8-1.3) mg/dL Glucose 100 (75-100) mg/dL Calcium 9.5 (8.4-10.2) mg/dL - Imaging and Cardiology EKG: report reviewed Echo: report reviewed - EKG Sinus rhythms and dysrhythmias: sinus rhythm Ventricular dysrhythmias: ventricular premature com - Allied health notes Allied health notes reviewed: nursing
--- NOTE | 2022-03-03 09:59 | Progress Note ---
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: On erythropoietin with dialysis #Bone mineral disorder and secondary hyperparathyroidism; Monitor phosphorus binders as necessary goal phosphorus less than 5-1/2 #Diet and nutrition: High-protein diet, multivitamin, Nepro, #Medication recommendation: Significantly abnormal troponin, new afib, refused LHC this week, cards following Subjective Date of service: 03/03/22 Principal diagnosis: NSTEMI, acute on chronic HFrEF, volume overload Interval history: resting in bed today, no acute events Vitals: Reviewed HEENT: No pallor or icterus oral mucosa moist Neck: Supple no JVD no thyromegaly Chest: Bilateral clear to auscultation anteriorly Heart: Regular rate and rhythm S1-S2 heard no S3-S4 Abdomen: Soft nontender no voluntary guarding rigidity rebound Extremity: Dry skin less than 1+ peripheral edema Psychiatric: No evidence of agitation and aggression noted Dermatology: No petechial rashes Labs and x-rays: Reviewed from today Objective - Vital Signs Vital signs: Vital Signs - 12hr 03/02/22 03/02/22 03/03/22 22:00 23:37 03:59 Temperature 97.9 F 98.9 F Pulse Rate 74 85 Pulse Rate [ Bilateral Throughout] Respiratory 18 18 Rate Respiratory Rate [Bilateral Throughout] Blood Pressure 84/40 112/71 O2 Sat by Pulse 98 98 99 Oximetry 03/03/22 03/03/22 03/03/22 07:57 08:00 09:05 Temperature 97.5 F L Pulse Rate 64 80 Pulse Rate [ 72 Bilateral Throughout] Respiratory 18 Rate Respiratory 18 Rate [Bilateral Throughout] Blood Pressure 92/65 92/65 O2 Sat by Pulse 98 98 Oximetry - Lab 03/02/22 04:49 03/03/22 06:32 Most recent lab results ABG pH 7.381 pH Units (7.350-7.450) 02/28/22 05:00 ABG pCO2 41.2 mm Hg 02/28/22 05:00 ABG pO2 91.3 mm Hg (80.0-90.0) H 02/28/22 05:00 ABG HCO3 23.9 mmol/L (20.0-26.0) 02/28/22 05:00 ABG O2 Saturation 97.0 % (95.0-99.0) 02/28/22 05:00 Calcium 9.5 mg/dL (8.4-10.2) 03/03/22 06:32 Magnesium 2.00 mg/dL (1.7-2.3) 03/03/22 06:32 Medications & Allergies - Medications Allergies/Adverse Reactions: Allergies atorvastatin calcium [From Lipitor] Allergy (Mild, Verified 02/12/21 10:43) Unknown ACHES, RASH ciprofloxacin [From Cipro] Allergy (Mild, Verified 09/23/20 12:30) Bleeding NOSE BLEED ciprofloxacin HCl [From Cipro] Allergy (Mild, Verified 09/23/20 12:30) Bleeding NOSE BLEED simvastatin Allergy (Mild, Verified 09/23/20 12:30) Unknown ACHES Home Medications: Home Medications Medication Instructions Recorded Confirmed Last Taken Type ALBUTEROL NEB's [Proventil 0.083% 2.5 mg IH Q6HRT PRN #50 nebu 09/28/20 04/25/21 04/23/21 Rx NEBS] AtorvaSTATin 10 mg PO QHS #30 tablet 09/28/20 04/25/21 04/22/21 Rx Budesonide [Pulmicort Respules] 0.5 mg IH Q12HRT #30 nebu 09/28/20 04/25/21 04/22/21 Rx Epoetin Eric 10,000 Unit [Procrit] 10,000 unit IV LIZANDRO PRN vial 09/28/20 04/24/21 02/28/21 12:39 Rx Ipratropium/Albuterol Sulfate 1 ampul IH TIDRT #50 ampul.neb 09/28/20 04/25/21 04/22/21 Rx [DUONEB *Not for PRN Use*] Sodium Bicarbonate 650 mg PO BID #60 09/28/20 04/25/21 04/23/21 Rx Tiotropium [Spiriva] 2 puff IH DAILY 30 Days #1 cap 09/28/20 04/25/21 04/23/21 Rx Clopidogrel [Plavix] 75 mg PO QDAY tablet 02/13/21 04/25/21 04/22/21 Rx Cholecalciferol Vit D3 [Vitamin D3 1,000 unit PO DAILY tablet 03/03/21 04/25/21 04/23/21 Rx 1,000 UNIT TAB] Lanthanum Carbonate [Fosrenol] 1,000 mg PO BIDAC tab.chew 03/03/21 04/25/21 04/23/21 Rx Pantoprazole [Protonix TAB] 40 mg PO QDAC tablet 03/03/21 04/25/21 04/23/21 Rx Metoprolol [Lopressor TAB] 50 mg PO BID #60 tablet 03/16/21 04/25/21 04/23/21 Rx NIFEdipine [Nifedipine] 50 mg PO BID 02/28/22 02/28/22 Unknown History Active Medications: Generic Name Dose Route Start Last Admin Trade Name Freq PRN Reason Stop Dose Admin Acetaminophen 650 mg 02/28/22 09:00 Acetaminophen 325 Mg Tab PO Q4H PRN Pain MILD(1-3)/Fever >100.5/STOLL Albuterol 2.5 mg 02/28/22 09:00 Albuterol 2.5 Mg/3 Ml Nebu IH Q4HRT PRN Shortness Of Breath Albuterol/Ipratropium 1 ampul 03/01/22 08:00 03/03/22 08:00 Ipratropium/Albuterol Sulfate 3 Ml Ampul.Neb IH 1 ampul TIDRT DARNELL Administration Arformoterol Tartrate 15 mcg 03/01/22 20:00 03/03/22 08:00 Arformoterol 15 Mcg/2 Ml Nebu IH 15 mcg Q12HRT DARNELL Administration Atorvastatin Calcium 10 mg 02/28/22 22:00 03/02/22 22:48 Atorvastatin 10 Mg Tab PO 10 mg QHS DARNELL Administration Budesonide 0.5 mg 02/28/22 20:00 03/03/22 08:00 Budesonide 0.5 Mg/2 Ml Nebu IH 0.5 mg Q12HRT DARNELL Administration Cholecalciferol 1,000 unit 02/28/22 10:00 03/03/22 09:05 Cholecalciferol (Vit D3) 1000 Unit (25 Mcg) Tab PO 1,000 unit DAILY DARNELL Administration Clopidogrel Bisulfate 75 mg 02/28/22 10:00 03/03/22 09:05 Clopidogrel 75 Mg Tab PO 75 mg QDAY DARNELL Administration Epoetin Eric-epbx 10,000 unit 02/28/22 09:00 02/28/22 20:30 Epoetin Eric-Epbx 10,000 Unit/1 Ml Vial IV 10,000 unit LIZANDRO PRN Administration HEMODIALYSIS Guaifenesin 10 ml 02/28/22 10:00 Guaifenesin Dm 200/20 Mg Oral Liqd 10 Ml PO QID PRN Cough Azithromycin 500 mg in 250 mls @ 250 mls/hr 02/28/22 09:00 03/03/22 09:03 Zithromax/Ns IV 03/04/22 09:59 250 mls/hr Q24H DARNELL Administration Sodium Chloride 100 mls @ 999 mls/hr 03/02/22 10:00 Nacl 0.9% IV LIZANDRO PRN Hypotension Lanthanum Carbonate 1,000 mg 02/28/22 16:30 03/03/22 09:03 Lanthanum Carbonate 500 Mg Tab PO 1,000 mg BIDAC DARNELL Administration Methylprednisolone Sodium Succinate 60 mg 03/03/22 10:00 03/03/22 09:05 Methylprednisolone Sod Succinate 125 Mg/2 Ml Inj IV 60 mg QDAY DARNELL Administration Metoprolol Tartrate 50 mg 02/28/22 10:00 03/03/22 09:05 Metoprolol Tartrate 50 Mg Tab PO 50 mg BID DARNELL Administration Naloxone HCl 0.1 mg 02/28/22 09:00 Naloxone 0.4 Mg/1 Ml Inj IV Q2MIN PRN Res Rate </= 8 or 02 SAT < 92% Ondansetron HCl 4 mg 02/28/22 09:00 Ondansetron 4 Mg/2 Ml Inj IV Q8H PRN Nausea And Vomiting Oxycodone/Acetaminophen 1 tab 02/28/22 09:00 03/02/22 22:55 Oxycodone /Acetaminophen 5-325mg Tab PO 1 tab Q6H PRN Administration Pain, Moderate (4-6) Pantoprazole Sodium 40 mg 03/01/22 07:30 03/03/22 09:03 Pantoprazole 40 Mg Tab PO 40 mg QDAC DARNELL Administration Sodium Bicarbonate 650 mg 02/28/22 10:00 03/03/22 09:05 Sodium Bicarbonate 650 Mg Tab PO 650 mg BID DARNELL Administration Sodium Chloride 10 ml 02/28/22 10:00 03/03/22 09:07 Sodium Chloride 0.9% 10 Ml Flush Syringe IV 10 ml BID DARNELL Administration Sodium Chloride 10 ml 02/28/22 09:00 Sodium Chloride 0.9% 10 Ml Flush Syringe IV PRN PRN LINE FLUSH Tiotropium [place] 2 puff 02/28/22 10:00 03/02/22 11:00 Tiotropium 18 Mcg Cap Inhalation IH 2 puff DAILY DARNELL Administration Warfarin Sodium 6 mg 03/03/22 17:00 Warfarin 2 Mg Tab PO 03/04/22 16:59 DAILY@1700 NR
--- NOTE | 2022-03-03 11:27 | Progress Note ---
Assessment and Plan Assessment and plan: #Acute on chronic hypoxic respiratory failure -Patient uses 5 to 6 L of supplemental O2 at night -Currently on 3 L while inpatient -Discussed with patient possibility that he may require oxygen at all times -Continue bronchodilators, Robitussin for cough -Pulmonology consulted, assistance appreciated -Likely secondary to volume overload versus COPD exacerbation #COPD with exacerbation -Patient takes Spiriva, Symbicort and albuterol at home -Continue steroids, azithromycin, duo nebs and budesonide -Pulmonology following, will need follow-up at discharge #Chronic heart failure with preserved ejection fraction-not in acute exacerbatio n -Repeat echocardiogram ordered due to elevated BNP (BNP >70k) -Cardiology following, assistance appreciated #CAD s/p stenting -Continue statin and Plavix #Atrial fibrillation #Secondary coagulopathy patient on Coumadin #Therapeutic INR -amiodarone drip started today by Cardiology -warfarin dosing per Pharmacy -Continue metoprolol and warfarin #End-stage renal disease requiring hemodialysis -Patient hemodialysis Saturday/Saturday/Saturday -will continue HD while inpatient -Will renally dose medications and avoid nephrotoxic -Nephrology following, assistance appreciated #AV fistula malfunction -Per HD, AV fistula not pulling full clearance for adequate volume removal -fistulogram on hold until the patient gets Cardiac cath -patient prefers to follow up with Vascular surgery outpatient for fistulogram #Type II NSTEMI -Troponin continues to elevate; currently asymptomatic -Recently with abnormal stress test, patient declines [facility] at this time would prefer to Cath by his Primary Mobile Sales Technician -Cardiology following, assistance appreciated #Systemic inflammatory response syndrome with organ dysfunction -Leukocytosis and tachycardia -likely secondary to COPD exacerbation #Advanced care planning -Disease education conducted, care plan discussed, diagnoses discussed, prognosis discussed, and patient and at bedside acknowledges understanding with care plan -Time: +30 min History Interval history: No acute events overnight. Updated patient about current care plan. He denies lightheadedness, dizziness and chest pain. He did however have palpitations that improved with his morning dose of metoprolol. Hospitalist Physical - Physical exam Narrative exam: GENERAL: Well-developed well-nourished. Sitting on the side of the bed in no acute distress. HEENT: Cannula at 3 L/min CHEST/LUNGS: Coarse breath sounds bilaterally HEART/CARDIOVASCULAR: RRR. No murmur, rubs or gallops appreciated. ABDOMEN: +BS. NT/ND. NEURO: No focal motor deficit. Follows all commands. EXTREMITIES: No cyanosis, clubbing or edema. PSYCH: Cooperative. - Constitutional Vitals: Temp Pulse Resp BP Pulse Ox 97.5 F L 80 18 92/65 98 03/03/22 07:57 03/03/22 09:05 03/03/22 08:00 03/03/22 09:05 03/03/22 08:00 General appearance: Present: mild distress HEART Score - HEART Score Troponin: Troponin T 1.860 ng/mL (0.00-0.029) H* D 03/03/22 06:32 Results - Labs CBC & Chem 7: 03/02/22 04:49 03/03/22 06:32 Labs: Laboratory Last Values WBC 12.2 K/mm3 (4.5-11.0) H 03/02/22 04:49 RBC 3.63 M/mm3 (3.65-5.03) L 03/02/22 04:49 Hgb 10.0 gm/dl (11.8-15.2) L 03/02/22 04:49 Hct 31.6 % (35.5-45.6) L 03/02/22 04:49 MCV 87 fl (84-94) 03/02/22 04:49 MCH 28 pg (28-32) 03/02/22 04:49 MCHC 32 % (32-34) 03/02/22 04:49 RDW 15.7 % (13.2-15.2) H 03/02/22 04:49 Plt Count 238 K/mm3 (140-440) 03/02/22 04:49 Lymph % (Auto) 8.3 % (13.4-35.0) L 02/28/22 03:41 [place] % (Auto) 7.2 % (0.0-7.3) 02/28/22 03:41 Eos % (Auto) 0.9 % (0.0-4.3) 02/28/22 03:41 Baso % (Auto) 0.4 % (0.0-1.8) 02/28/22 03:41 Lymph # (Auto) 1.0 K/mm3 (1.2-5.4) L 02/28/22 03:41 [place] # (Auto) 0.9 K/mm3 (0.0-0.8) H 02/28/22 03:41 Eos # (Auto) 0.1 K/mm3 (0.0-0.4) 02/28/22 03:41 Baso # (Auto) 0.0 K/mm3 (0.0-0.1) 02/28/22 03:41 Add Manual Diff Complete 03/01/22 05:08 Total Counted 100 03/01/22 05:08 Seg Neutrophils % Sewing Department Supervisor 03/01/22 05:08 Seg Neuts % (Manual) 92.0 % (40.0-70.0) H 03/01/22 05:08 Band Neutrophils % 5.0 % 03/01/22 05:08 Lymphocytes % (Manual) 1.0 % (13.4-35.0) L 03/01/22 05:08 Reactive Lymphs % (Man) 0 % 03/01/22 05:08 Monocytes % (Manual) 2.0 % (0.0-7.3) 03/01/22 05:08 Eosinophils % (Manual) 0 % (0.0-4.3) 03/01/22 05:08 Basophils % (Manual) 0 % (0.0-1.8) 03/01/22 05:08 Metamyelocytes % 0 % 03/01/22 05:08 Myelocytes % 0 % 03/01/22 05:08 Promyelocytes % 0 % 03/01/22 05:08 Blast Cells % 0 % 03/01/22 05:08 Nucleated RBC % Not Reportable 03/01/22 05:08 Seg Neutrophils # 10.1 K/mm3 (1.8-7.7) H 02/28/22 03:41 Seg Neutrophils # Man 11.4 K/mm3 (1.8-7.7) H 03/01/22 05:08 Band Neutrophils # 0.6 K/mm3 03/01/22 05:08 Lymphocytes # (Manual) 0.1 K/mm3 (1.2-5.4) L 03/01/22 05:08 Abs React Lymphs (Man) 0.0 K/mm3 03/01/22 05:08 Monocytes # (Manual) 0.2 K/mm3 (0.0-0.8) 03/01/22 05:08 Eosinophils # (Manual) 0.0 K/mm3 (0.0-0.4) 03/01/22 05:08 Basophils # (Manual) 0.0 K/mm3 (0.0-0.1) 03/01/22 05:08 Metamyelocytes # 0.0 K/mm3 03/01/22 05:08 Myelocytes # 0.0 K/mm3 03/01/22 05:08 Promyelocytes # 0.0 K/mm3 03/01/22 05:08 Blast Cells # 0.0 K/mm3 03/01/22 05:08 WBC Morphology Not Reportable 03/01/22 05:08 Hypersegmented Neuts Not Reportable 03/01/22 05:08 Hyposegmented Neuts Not Reportable 03/01/22 05:08 Hypogranular Neuts Not Reportable 03/01/22 05:08 Smudge Cells Not Reportable 03/01/22 05:08 Toxic Granulation Not Reportable 03/01/22 05:08 Toxic Vacuolation Not Reportable 03/01/22 05:08 Dohle Bodies Not Reportable 03/01/22 05:08 Pelger-Huet Anomaly Not Reportable 03/01/22 05:08 Scarlet Rods Not Reportable 03/01/22 05:08 Platelet Estimate Consistent w auto 03/01/22 05:08 Clumped Platelets Not Reportable 03/01/22 05:08 Plt Clumps, EDTA Not Reportable 03/01/22 05:08 Large Platelets Not Reportable 03/01/22 05:08 Giant Platelets Not Reportable 03/01/22 05:08 Platelet Satelliting Not Reportable 03/01/22 05:08 Plt Morphology Comment Not Reportable 03/01/22 05:08 RBC Morphology Not Reportable 03/01/22 05:08 Dimorphic RBCs Not Reportable 03/01/22 05:08 Polychromasia Not Reportable 03/01/22 05:08 Hypochromasia Not Reportable 03/01/22 05:08 Poikilocytosis Few 03/01/22 05:08 Anisocytosis Not Reportable 03/01/22 05:08 Microcytosis Not Reportable 03/01/22 05:08 Macrocytosis Not Reportable 03/01/22 05:08 Spherocytes Rare 03/01/22 05:08 Pappenheimer Bodies Not Reportable 03/01/22 05:08 Sickle Cells Not Reportable 03/01/22 05:08 Target Cells Not Reportable 03/01/22 05:08 Tear Drop Cells Not Reportable 03/01/22 05:08 Ovalocytes Rare 03/01/22 05:08 Helmet Cells Not Reportable 03/01/22 05:08 [place] Bodies Not Reportable 03/01/22 05:08 [place] Rings Not Reportable 03/01/22 05:08 [place] Cells Rare 03/01/22 05:08 Bite Cells Not Reportable 03/01/22 05:08 Crenated Cell Not Reportable 03/01/22 05:08 Elliptocytes Not Reportable 03/01/22 05:08 Acanthocytes (Spur) Not Reportable 03/01/22 05:08 Rouleaux Not Reportable 03/01/22 05:08 Hemoglobin C Crystals Not Reportable 03/01/22 05:08 Schistocytes Not Reportable 03/01/22 05:08 Malaria parasites Not Reportable 03/01/22 05:08 Jose E Bodies Not Reportable 03/01/22 05:08 Hem Pathologist Commnt No 03/01/22 05:08 PT 24.3 Sec. (12.2-14.9) H 03/03/22 06:32 INR 1.91 (0.87-1.13) H 03/03/22 06:32 ABG pH 7.381 pH Units (7.350-7.450) 02/28/22 05:00 ABG pCO2 41.2 mm Hg 02/28/22 05:00 ABG pO2 91.3 mm Hg (80.0-90.0) H 02/28/22 05:00 ABG HCO3 23.9 mmol/L (20.0-26.0) 02/28/22 05:00 ABG O2 Saturation 97.0 % (95.0-99.0) 02/28/22 05:00 ABG O2 Content 13.5 (0.0-44) 02/28/22 05:00 ABG Base Excess -1.1 mmol/L (-2.0-3.0) 02/28/22 05:00 ABG Hemoglobin 9.9 gm/dl (14.0-18.0) L 02/28/22 05:00 ABG Carboxyhemoglobin 1.0 % (0.0-5.0) 02/28/22 05:00 ABG Methemoglobin 0.4 % (0.0-1.5) 02/28/22 05:00 Oxyhemoglobin 95.6 % (95.0-99.0) 02/28/22 05:00 FiO2 50 % 02/28/22 05:00 Sodium 136 mmol/L (137-145) L 03/03/22 06:32 Potassium 4.0 mmol/L (3.6-5.0) D 03/03/22 06:32 Chloride 90.3 mmol/L (98-107) L 03/03/22 06:32 Carbon Dioxide 27 mmol/L (22-30) 03/03/22 06:32 Anion Gap 23 mmol/L 03/03/22 06:32 BUN 45 mg/dL (9-20) H 03/03/22 06:32 Creatinine 7.3 mg/dL (0.8-1.3) H 03/03/22 06:32 Estimated GFR 9 ml/min 03/03/22 06:32 BUN/Creatinine Ratio 6 % 03/03/22 06:32 Glucose 100 mg/dL (75-100) 03/03/22 06:32 Calcium 9.5 mg/dL (8.4-10.2) 03/03/22 06:32 Magnesium 2.00 mg/dL (1.7-2.3) 03/03/22 06:32 Total Bilirubin 0.20 mg/dL (0.1-1.2) 02/28/22 03:41 AST 18 units/L (5-40) 02/28/22 03:41 ALT 12 units/L (7-56) 02/28/22 03:41 Alkaline Phosphatase 51 units/L (35-129) 02/28/22 03:41 Total Creatine Kinase 192 units/L (55-170) H 02/28/22 03:41 CK-MB (CK-2) 7.2 ng/mL (0.0-4.0) H 02/28/22 03:41 CK-MB (CK-2) Rel Index 3.7 (0-4) 02/28/22 03:41 Troponin T 1.860 ng/mL (0.00-0.029) H* D 03/03/22 06:32 NT-Pro-B Natriuret Pep > 82820 pg/mL (0-900) H 02/28/22 03:41 Total Protein 6.9 g/dL (6.3-8.2) 02/28/22 03:41 Albumin 4.3 g/dL (3.9-5) 02/28/22 03:41 Albumin/Globulin Ratio 1.7 % 02/28/22 03:41 Triglycerides 102 mg/dL (2-149) 02/28/22 03:41 Cholesterol 147 mg/dL (50-199) 02/28/22 03:41 LDL Cholesterol Direct 73 mg/dL (50-130) 02/28/22 03:41 HDL Cholesterol 54 mg/dL (40-59) 02/28/22 03:41 Cholesterol/HDL Ratio 2.72 % 02/28/22 03:41 Lipase 48 units/L (13-60) 02/28/22 03:41 Hep Bs Antigen Non-reactive (Negative) 02/28/22 14:23 Hep B Core IgM Ab Non-reactive (NonReactive) 02/28/22 14:23 Hepatitis C Antibody Non-reactive (NonReactive) 02/28/22 14:23 [place]/IV: Voiding Method Urinal Active Medications - Current Medications Current Medications: Generic Name Dose Route Start Last Admin Trade Name Freq PRN Reason Stop Dose Admin Acetaminophen 650 mg 02/28/22 09:00 Acetaminophen 325 Mg Tab PO Q4H PRN Pain MILD(1-3)/Fever >100.5/STOLL Albuterol 2.5 mg 02/28/22 09:00 Albuterol 2.5 Mg/3 Ml Nebu IH Q4HRT PRN Shortness Of Breath Albuterol/Ipratropium 1 ampul 03/01/22 08:00 03/03/22 08:00 Ipratropium/Albuterol Sulfate 3 Ml Ampul.Neb IH 1 ampul TIDRT DARNELL Administration Arformoterol Tartrate 15 mcg 03/01/22 20:00 03/03/22 08:00 Arformoterol 15 Mcg/2 Ml Nebu IH 15 mcg Q12HRT DARNELL Administration Atorvastatin Calcium 10 mg 02/28/22 22:00 03/02/22 22:48 Atorvastatin 10 Mg Tab PO 10 mg QHS DARNELL Administration Budesonide 0.5 mg 02/28/22 20:00 03/03/22 08:00 Budesonide 0.5 Mg/2 Ml Nebu IH 0.5 mg Q12HRT DARNELL Administration Cholecalciferol 1,000 unit 02/28/22 10:00 03/03/22 09:05 Cholecalciferol (Vit D3) 1000 Unit (25 Mcg) Tab PO 1,000 unit DAILY DARNELL Administration Clopidogrel Bisulfate 75 mg 02/28/22 10:00 03/03/22 09:05 Clopidogrel 75 Mg Tab PO 75 mg QDAY DARNELL Administration Epoetin Eric-epbx 10,000 unit 02/28/22 09:00 02/28/22 20:30 Epoetin Eric-Epbx 10,000 Unit/1 Ml Vial IV 10,000 unit LIZANDRO PRN Administration HEMODIALYSIS Guaifenesin 10 ml 02/28/22 10:00 Guaifenesin Dm 200/20 Mg Oral Liqd 10 Ml PO QID PRN Cough Azithromycin 500 mg in 250 mls @ 250 mls/hr 02/28/22 09:00 03/03/22 09:03 Zithromax/Ns IV 03/04/22 09:59 250 mls/hr Q24H DARNELL Administration Sodium Chloride 100 mls @ 999 mls/hr 03/02/22 10:00 Nacl 0.9% IV LIZANDRO PRN Hypotension Lanthanum Carbonate 1,000 mg 02/28/22 16:30 03/03/22 09:03 Lanthanum Carbonate 500 Mg Tab PO 1,000 mg BIDAC DARNELL Administration Methylprednisolone Sodium Succinate 60 mg 03/03/22 10:00 03/03/22 09:05 Methylprednisolone Sod Succinate 125 Mg/2 Ml Inj IV 60 mg QDAY DARNELL Administration Metoprolol Tartrate 50 mg 02/28/22 10:00 03/03/22 09:05 Metoprolol Tartrate 50 Mg Tab PO 50 mg BID DARNELL Administration Naloxone HCl 0.1 mg 02/28/22 09:00 Naloxone 0.4 Mg/1 Ml Inj IV Q2MIN PRN Res Rate </= 8 or 02 SAT < 92% Ondansetron HCl 4 mg 02/28/22 09:00 Ondansetron 4 Mg/2 Ml Inj IV Q8H PRN Nausea And Vomiting Oxycodone/Acetaminophen 1 tab 02/28/22 09:00 03/02/22 22:55 Oxycodone /Acetaminophen 5-325mg Tab PO 1 tab Q6H PRN Administration Pain, Moderate (4-6) Pantoprazole Sodium 40 mg 03/01/22 07:30 03/03/22 09:03 Pantoprazole 40 Mg Tab PO 40 mg QDAC DARNELL Administration Sodium Bicarbonate 650 mg 02/28/22 10:00 03/03/22 09:05 Sodium Bicarbonate 650 Mg Tab PO 650 mg BID DARNELL Administration Sodium Chloride 10 ml 02/28/22 10:00 03/03/22 09:07 Sodium Chloride 0.9% 10 Ml Flush Syringe IV 10 ml BID DARNELL Administration Sodium Chloride 10 ml 02/28/22 09:00 Sodium Chloride 0.9% 10 Ml Flush Syringe IV PRN PRN LINE FLUSH Tiotropium [place] 2 puff 02/28/22 10:00 03/02/22 11:00 Tiotropium 18 Mcg Cap Inhalation IH 2 puff DAILY DARNELL Administration Warfarin Sodium 6 mg 03/03/22 17:00 Warfarin 2 Mg Tab PO 03/04/22 16:59 DAILY@1700 NR Nutrition/Malnutrition Assess - Dietary Evaluation Nutrition/Malnutrition Findings: Nutrition Notes Start: 02/28/22 11:20 Freq: Status: Active Protocol: Document 02/28/22 11:20 KRISTIN (Rec: 02/28/22 11:42 KRISTIN [id number]) Nutrition Notes Need for Assessment generated from: Education Initial or Follow up Assessment Current Diagnosis CKD (stage V CKD),COPD, Coronary Artery Disease, Hypertension,Respiratory Failure,Hyperlipidemia Other Pertinent Diagnosis ESRD+HD, HFpEF, NSTEMI II, SIRS, Atrial Fibrilation, IA, GERD, OA. Current Diet Renal Diet (since B 02/28). Labs/Tests 02/28: Na 135, Cl 91.4, CO2 21 , BUN 61, Crea 10.4, Glu 121. Pertinent Medications 02/28:" Vit D3, Warfarin 6 mg, others nutritionally unremarkable. Height 5 ft 10 in Weight 82.554 kg [place] Body Weight (kg) 75.45 BMI 26.1 Weight change and time frame None reported at admission. Weight Status Overweight Subjective/Other Information RD consult for warfarine use education. No reports available on Pt's PO intake of meals at the time . Pt is on Venturi Mask+, O2 saturation @ 98%, according to Physical Assessment history notes. Pt has been on Coumadin since 04/2021, not a candidaste for Txfarin Education. Percent of energy/protein needs met: Prescribed Renal Diet provides for energy/protein needs (2, 072 Kcal/77 g) during LOS. Burn Absent Trauma Absent GI Symptoms None Food Allergy No Skin Integrity/Comment Assessment WNL. Minimum of two criteria No #1 Nutrition Diagnosis No nutrition diagnosis at this time Is patient on ventilator? No Is Patient Ambulatory and/or Out of Bed Yes REE-([facility]-ambulatory/OOB) [ 2010.827 [id number]] Calculation Used for Recommendations [facility] Additional Notes Protein: >1.2 g/Kg ABW; >100 g /day. Fluids: 1 ml/Kcal, or as per MD. Nutrition Intervention Revisit per MD consult or patient Sign Off request: Additional Comments Continue monitoring food tolerance, %PO intake of meals , and BM.
[2022-03-03] MEDS ORDERED: DEXTROSE 5% IV ONE (12:00)
[2022-03-03] MEDS ORDERED: WATER IV ONE (12:00)
[2022-03-03] MEDS ORDERED: AMIODARONE IV ONE (12:00)
[2022-03-03] MEDS: SODIUM CHLORIDE 0.9% 500 ML 500 ML IV SCH ×2 (13:03→17:34)
[2022-03-03] MEDS: AMIODARONE 900 MG in DEXTROSE 5% IN WATER 482 ML IV SCH (13:19)
--- NOTE | 2022-03-03 15:46 | Progress Note ---
Assessment and Plan Patient is 81 YO Male with COPD, CAD, S/P Stent Placement, HLD, ESRD on HD M/W/F, HTN, Hyperlipidemia, Paroxysmal Atrial Fibrillation currently on therapeutic anticoagulation with Coumadin, OK, Diastolic CHF, OA, COPD chronic hypoxia on home oxygen [facility] ED with complaint of persistent cough that has been ongoing for the past week with sensation of phlegm stuck at the back of his throat. He also reports worsening shortness of breath he is normally on 4 to 5 L of oxygen at home but last night had to go up to 8 L prior to presenting to the ED. in the ED he was given steroids and nebulizer treatment and placed on a full Venturi mask. His saturation is 100% . He denies any fever nausea vomiting or diarrhea he denies any chest pain or leg swelling. He denies any change in his medications or diet . He reports compliance with his dialysis. Patient has history of prostate cance in remission. Patient has history of smoking,. Denies akcohol or drug abuse. 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 Allergic to Atorvastatin, simvastatin, Cipro. Patient awake and on 2 litres O2. O2 saturation 98%.Sitting up by the side of the bed. No acute respiratory distress. Denies chest pain, shortness of breath . Has slight cough. Patient afebrile. Has mild leukocytosis. Blood pressure 86/62 (MAP 69).Denies dizziness. Patient asymptomatic. pulse 102, Respirations 18. Patients INR 1.91 03/03/22 Chest xray obtained 02/28/22 reported No acute abnormality of the chest. Patient is on I/V solumedrol, Zithromax, Brovana/Budesonide aerosol treatments, DUOneb aerosol treatments PRN, Protonix. - Patient Problems (1) Acute exacerbation of chronic obstructive pulmonary disease (COPD) Current Visit: Yes Status: Acute Plan to address problem: O2 2 litres via nasal canula. On I/V solumedrol. Brovanna/Budesonide aerosol treatments. Albuterol/atrovent aerosol treatments q 6 hours prn for shortness of breath. On zithromax. Continue Protonix. Patients to days INR 1.91 (2) Acute on chronic heart failure with preserved ejection fraction (HFpEF) Current Visit: Yes Status: Acute Plan to address problem: Management as per cardiology. (3) NSTEMI (non-ST elevation myocardial infarction) Current Visit: Yes Status: Acute Plan to address problem: Management as per cardiology. (4) End-stage renal disease on hemodialysis Current Visit: Yes Status: Chronic Plan to address problem: Management as per nephrology. (5) Anemia Current Visit: No Status: Acute Qualifiers: Anemia type: unspecified type Qualified Code(s): D64.9 - Anemia, unspecified Plan to address problem: Management as per primary care Hematology and nephrology. (6) Atrial fibrillation with rapid ventricular response Current Visit: No Status: Acute Plan to address problem: Management as per cardiology. Patients to days INR 1.91 Subjective Date of service: 03/03/22 Principal diagnosis: NSTEMI, acute on chronic HFrEF, volume overload Interval history: Patient is 81 YO Male with COPD, CAD, S/P Stent Placement, HLD, ESRD on HD M/W/F, HTN, Hyperlipidemia, Paroxysmal Atrial Fibrillation currently on therapeutic anticoagulation with Coumadin, OK, Diastolic CHF, OA, COPD chronic hypoxia on home oxygen [facility] presents to [facility] ED with complaint of persistent cough that has been ongoing for the past week with sensation of phlegm stuck at the back of his throat. He also reports worsening shortness of breath he is normally on 4 to 5 L of oxygen at home but last night had to go up to 8 L prior to presenting to the ED. in the ED he was given steroids and nebulizer treatment and placed on a full Venturi mask. His saturation is 100% . He denies any fever nausea vomiting or diarrhea he denies any chest pain or leg swelling. He denies any change in his medications or diet . He reports compliance with his dialysis. Patient has history of prostate ca nce in remission. Patient has history of smoking,. Denies akcohol or drug abuse. 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 Allergic to Atorvastatin, simvastatin, Cipro. Patient awake and on 2 litres O2. O2 saturation 98%.Sitting up by the side of the bed. No acute respiratory distress. Denies chest pain, shortness of breath . Has slight cough. Patient afebrile. Has mild leukocytosis. Blood pressure 86/62 (MAP 69).Denies dizziness. Patient asymptomatic. pulse 102, Respirations 18. Patients INR 1.91 03/03/22 Chest xray obtained 02/28/22 reported No acute abnormality of the chest. Patient is on I/V solumedrol, Zithromax, Brovana/Budesonide aerosol treatments, DUOneb aerosol treatments PRN, Protonix. Objective Vital Signs - 12hr 03/03/22 03/03/22 03/03/22 03:59 07:57 08:00 Temperature 98.9 F 97.5 F L Pulse Rate 85 64 Pulse Rate [ 72 Bilateral Throughout] Pulse Rate [ From Monitor] Respiratory 18 18 Rate Respiratory 18 Rate [Bilateral Throughout] Blood Pressure 112/71 92/65 O2 Sat by Pulse 99 98 98 Oximetry 03/03/22 03/03/22 03/03/22 09:05 10:00 11:36 Temperature 97.7 F Pulse Rate 80 Pulse Rate [ Bilateral Throughout] Pulse Rate [ 82 From Monitor] Respiratory 18 Rate Respiratory Rate [Bilateral Throughout] Blood Pressure 92/65 82/45 O2 Sat by Pulse 98 Oximetry Constitutional: no acute distress, alert Eyes: non-icteric ENT: oropharynx moist Neck: supple, no lymphadenopathy, no JVD Effort: mildly labored Ascultation: Bilateral: diminished breath sounds, rhonchi Percussion: Bilateral: not dull Cardiovascular: regular rate and rhythm Gastrointestinal: normoactive bowel sounds, soft, non-tender, non-distended Integumentary: normal Extremities: no cyanosis, pulses normal, no ischemia or petechiae, edema Neurologic: non-focal exam (grossly), pupils equal and round, CN II-XII normal, motor strength normal and Psychiatric: mood appropriate, affect normal CBC and BMP: 03/02/22 04:49 03/04/22 06:53 ABG, PT/INR, D-dimer: ABG ABG pH 7.381 pH Units (7.350-7.450) 02/28/22 05:00 ABG pCO2 41.2 mm Hg 02/28/22 05:00 ABG pO2 91.3 mm Hg (80.0-90.0) H 02/28/22 05:00 ABG O2 Saturation 97.0 % (95.0-99.0) 02/28/22 05:00 PT/INR, D-dimer PT 24.3 Sec. (12.2-14.9) H 03/03/22 06:32 INR 1.91 (0.87-1.13) H 03/03/22 06:32 Abnormal lab findings: Abnormal Labs 02/28/22 02/28/22 02/28/22 03:41 03:41 03:54 WBC 12.2 H RBC Hgb 10.1 L Hct 32.2 L MCHC 31 L RDW 15.7 H Lymph % (Auto) 8.3 L Lymph # (Auto) 1.0 L [place] # (Auto) 0.9 H Seg Neutrophils % 83.2 H Seg Neuts % (Manual) Lymphocytes % (Manual) Seg Neutrophils # 10.1 H Seg Neutrophils # Man Lymphocytes # (Manual) PT 33.3 H INR 2.80 H ABG pO2 ABG Hemoglobin Sodium 135 L Potassium Chloride 91.4 L Carbon Dioxide 21 L BUN 61 H Creatinine 10.4 H Glucose 121 H POC Glucose Total Creatine Kinase 192 H CK-MB (CK-2) 7.2 H Troponin T 0.576 H* NT-Pro-B Natriuret Pep > 80319 H 02/28/22 02/28/22 03/01/22 05:00 14:23 05:08 WBC 12.4 H RBC Hgb 10.6 L Hct 32.7 L MCHC RDW 15.4 H Lymph % (Auto) Lymph # (Auto) [place] # (Auto) Seg Neutrophils % Seg Neuts % (Manual) 92.0 H Lymphocytes % (Manual) 1.0 L Seg Neutrophils # Seg Neutrophils # Man 11.4 H Lymphocytes # (Manual) 0.1 L PT INR ABG pO2 91.3 H ABG Hemoglobin 9.9 L Sodium Potassium Chloride Carbon Dioxide BUN Creatinine Glucose POC Glucose Total Creatine Kinase CK-MB (CK-2) Troponin T 0.764 H* D NT-Pro-B Natriuret Pep 03/01/22 03/01/22 03/02/22 05:08 05:08 04:49 WBC RBC Hgb Hct MCHC RDW Lymph % (Auto) Lymph # (Auto) [place] # (Auto) Seg Neutrophils % Seg Neuts % (Manual) Lymphocytes % (Manual) Seg Neutrophils # Seg Neutrophils # Man Lymphocytes # (Manual) PT 35.6 H 35.6 H INR 3.04 H 3.04 H ABG pO2 ABG Hemoglobin Sodium Potassium 5.1 H Chloride 92.1 L Carbon Dioxide BUN 44 H Creatinine 7.9 H Glucose 124 H POC Glucose Total Creatine Kinase CK-MB (CK-2) Troponin T NT-Pro-B Natriuret Pep 03/02/22 03/02/22 03/03/22 04:49 04:49 06:32 WBC 12.2 H RBC 3.63 L Hgb 10.0 L Hct 31.6 L MCHC RDW 15.7 H Lymph % (Auto) Lymph # (Auto) [place] # (Auto) Seg Neutrophils % Seg Neuts % (Manual) Lymphocytes % (Manual) Seg Neutrophils # Seg Neutrophils # Man Lymphocytes # (Manual) PT 24.3 H INR 1.91 H ABG pO2 ABG Hemoglobin Sodium 131 L Potassium 5.1 H Chloride 88.8 L Carbon Dioxide BUN 74 H Creatinine 10.2 H Glucose 136 H POC Glucose Total Creatine Kinase CK-MB (CK-2) Troponin T 1.200 H* D NT-Pro-B Natriuret Pep 03/03/22 03/03/22 06:32 11:57 WBC RBC Hgb Hct MCHC RDW Lymph % (Auto) Lymph # (Auto) [place] # (Auto) Seg Neutrophils % Seg Neuts % (Manual) Lymphocytes % (Manual) Seg Neutrophils # Seg Neutrophils # Man Lymphocytes # (Manual) PT INR ABG pO2 ABG Hemoglobin Sodium 136 L Potassium Chloride 90.3 L Carbon Dioxide BUN 45 H Creatinine 7.3 H Glucose POC Glucose 120 H Total Creatine Kinase CK-MB (CK-2) Troponin T 1.860 H* D NT-Pro-B Natriuret Pep Allied health notes reviewed: nursing
[2022-03-03] MEDS: TIOTROPIUM 18 MCG CAP INHALATION IH SCH (16:02)
[2022-03-03] MEDS ORDERED: WARFARIN 2 MG TAB PO NR (17:00)
[2022-03-03] MEDS ORDERED: SODIUM CHLORIDE 0.9% 500 ML 500 ML IV ONE (18:00)
[2022-03-04] MEDS: ACETAMINOPHEN 325 MG TAB PO PRN ×2 (02:15→23:09)
[2022-03-04] MEDS: ARFORMOTEROL 15 MCG/2 ML NEBU IH SCH ×2 (07:38→20:28)
[2022-03-04] MEDS: IPRATROPIUM/ALBUTEROL SULFATE 3 ML AMPUL.NEB IH SCH ×3 (07:38→20:29)
[2022-03-04] MEDS: BUDESONIDE 0.5 MG/2 ML NEBU IH SCH ×2 (07:38→20:28)
[2022-03-04 07:55] LABS: INR 1.41 (0.87-1.13)
[2022-03-04 08:35] LABS: Calcium 8.9 mg/dL (8.4-10.2)
--- NOTE | 2022-03-04 10:11 | Progress Note ---
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: On erythropoietin with dialysis #Bone mineral disorder and secondary hyperparathyroidism; Monitor phosphorus binders as necessary goal phosphorus less than 5-1/2 #Diet and nutrition: High-protein diet, multivitamin, Nepro, #Medication recommendation: Significantly abnormal troponin, new afib, refused LHC this week, cards following Subjective Date of service: 03/04/22 Principal diagnosis: NSTEMI, acute on chronic HFrEF, volume overload Interval history: resting in bed today, no acute events Vitals: Reviewed HEENT: No pallor or icterus oral mucosa moist Neck: Supple no JVD no thyromegaly Chest: Bilateral clear to auscultation anteriorly Heart: Regular rate and rhythm S1-S2 heard no S3-S4 Abdomen: Soft nontender no voluntary guarding rigidity rebound Extremity: Dry skin less than 1+ peripheral edema Psychiatric: No evidence of agitation and aggression noted Dermatology: No petechial rashes Labs and x-rays: Reviewed from today Objective - Vital Signs Vital signs: Vital Signs - 12hr 03/03/22 03/04/22 03/04/22 22:24 02:15 03:26 Temperature 98.1 F Pulse Rate 110 H 77 Respiratory 18 18 Rate Blood Pressure 109/70 117/60 O2 Sat by Pulse 99 100 Oximetry 03/04/22 03/04/22 04:16 08:08 Temperature 97.8 F Pulse Rate 82 72 Respiratory 18 Rate Blood Pressure 92/57 O2 Sat by Pulse 98 Oximetry - Lab 03/02/22 04:49 03/04/22 06:53 Most recent lab results ABG pH 7.381 pH Units (7.350-7.450) 02/28/22 05:00 ABG pCO2 41.2 mm Hg 02/28/22 05:00 ABG pO2 91.3 mm Hg (80.0-90.0) H 02/28/22 05:00 ABG HCO3 23.9 mmol/L (20.0-26.0) 02/28/22 05:00 ABG O2 Saturation 97.0 % (95.0-99.0) 02/28/22 05:00 Calcium 8.9 mg/dL (8.4-10.2) 03/04/22 06:53 Magnesium 2.00 mg/dL (1.7-2.3) 03/03/22 06:32 Medications & Allergies - Medications Allergies/Adverse Reactions: Allergies atorvastatin calcium [From Lipitor] Allergy (Mild, Verified 02/12/21 10:43) Unknown ACHES, RASH ciprofloxacin [From Cipro] Allergy (Mild, Verified 09/23/20 12:30) Bleeding NOSE BLEED ciprofloxacin HCl [From Cipro] Allergy (Mild, Verified 09/23/20 12:30) Bleeding NOSE BLEED simvastatin Allergy (Mild, Verified 09/23/20 12:30) Unknown ACHES Home Medications: Home Medications Medication Instructions Recorded Confirmed Last Taken Type ALBUTEROL NEB's [Proventil 0.083% 2.5 mg IH Q6HRT PRN #50 nebu 09/28/20 04/25/21 04/23/21 Rx NEBS] AtorvaSTATin 10 mg PO QHS #30 tablet 09/28/20 04/25/21 04/22/21 Rx Budesonide [Pulmicort Respules] 0.5 mg IH Q12HRT #30 nebu 09/28/20 04/25/21 04/22/21 Rx Epoetin Eric 10,000 Unit [Procrit] 10,000 unit IV LIZANDRO PRN vial 09/28/20 04/24/21 02/28/21 12:39 Rx Ipratropium/Albuterol Sulfate 1 ampul IH TIDRT #50 ampul.neb 09/28/20 04/25/21 04/22/21 Rx [DUONEB *Not for PRN Use*] Sodium Bicarbonate 650 mg PO BID #60 09/28/20 04/25/21 04/23/21 Rx Tiotropium [Spiriva] 2 puff IH DAILY 30 Days #1 cap 09/28/20 04/25/21 04/23/21 Rx Clopidogrel [Plavix] 75 mg PO QDAY tablet 02/13/21 04/25/21 04/22/21 Rx Cholecalciferol Vit D3 [Vitamin D3 1,000 unit PO DAILY tablet 03/03/21 04/25/21 04/23/21 Rx 1,000 UNIT TAB] Lanthanum Carbonate [Fosrenol] 1,000 mg PO BIDAC tab.chew 03/03/21 04/25/21 04/23/21 Rx Pantoprazole [Protonix TAB] 40 mg PO QDAC tablet 03/03/21 04/25/21 04/23/21 Rx Metoprolol [Lopressor TAB] 50 mg PO BID #60 tablet 03/16/21 04/25/21 04/23/21 Rx NIFEdipine [Nifedipine] 50 mg PO BID 02/28/22 02/28/22 Unknown History Active Medications: Generic Name Dose Route Start Last Admin Trade Name Freq PRN Reason Stop Dose Admin Acetaminophen 650 mg 02/28/22 09:00 03/04/22 02:15 Acetaminophen 325 Mg Tab PO 650 mg Q4H PRN Administration Pain MILD(1-3)/Fever >100.5/STOLL Albuterol 2.5 mg 02/28/22 09:00 Albuterol 2.5 Mg/3 Ml Nebu IH Q4HRT PRN Shortness Of Breath Albuterol/Ipratropium 1 ampul 03/01/22 08:00 03/04/22 07:38 Ipratropium/Albuterol Sulfate 3 Ml Ampul.Neb IH 1 ampul TIDRT DARNELL Administration Arformoterol Tartrate 15 mcg 03/01/22 20:00 03/04/22 07:38 Arformoterol 15 Mcg/2 Ml Nebu IH 15 mcg Q12HRT DARNELL Administration Atorvastatin Calcium 10 mg 02/28/22 22:00 03/03/22 21:02 Atorvastatin 10 Mg Tab PO 10 mg QHS DARNELL Administration Budesonide 0.5 mg 02/28/22 20:00 03/04/22 07:38 Budesonide 0.5 Mg/2 Ml Nebu IH 0.5 mg Q12HRT DARNELL Administration Cholecalciferol 1,000 unit 02/28/22 10:00 03/03/22 09:05 Cholecalciferol (Vit D3) 1000 Unit (25 Mcg) Tab PO 1,000 unit DAILY DARNELL Administration Clopidogrel Bisulfate 75 mg 02/28/22 10:00 03/03/22 09:05 Clopidogrel 75 Mg Tab PO 75 mg QDAY DARNELL Administration Epoetin Eric-epbx 10,000 unit 02/28/22 09:00 02/28/22 20:30 Epoetin Eric-Epbx 10,000 Unit/1 Ml Vial IV 10,000 unit LIZANDRO PRN Administration HEMODIALYSIS Guaifenesin 10 ml 02/28/22 10:00 Guaifenesin Dm 200/20 Mg Oral Liqd 10 Ml PO QID PRN Cough Sodium Chloride 100 mls @ 999 mls/hr 03/02/22 10:00 Nacl 0.9% IV LIZANDRO PRN Hypotension Amiodarone HCl 900 mg/ 500 mls @ 33.333 mls/hr 03/03/22 12:00 03/03/22 19:45 Dextrose IV 0.5 mg/min DIRECT DARNELL 16.667 mls/hr Titration Protocol 1 MG/MIN Lanthanum Carbonate 1,000 mg 02/28/22 16:30 03/03/22 16:47 Lanthanum Carbonate 500 Mg Tab PO 1,000 mg BIDAC DARNELL Administration Methylprednisolone Sodium Succinate 60 mg 03/03/22 10:00 03/03/22 09:05 Methylprednisolone Sod Succinate 125 Mg/2 Ml Inj IV 60 mg QDAY DARNELL Administration Metoprolol Tartrate 50 mg 02/28/22 10:00 03/03/22 21:02 Metoprolol Tartrate 50 Mg Tab PO Not Given BID DARNELL Naloxone HCl 0.1 mg 02/28/22 09:00 Naloxone 0.4 Mg/1 Ml Inj IV Q2MIN PRN Res Rate </= 8 or 02 SAT < 92% Ondansetron HCl 4 mg 02/28/22 09:00 Ondansetron 4 Mg/2 Ml Inj IV Q8H PRN Nausea And Vomiting Oxycodone/Acetaminophen 1 tab 02/28/22 09:00 03/02/22 22:55 Oxycodone /Acetaminophen 5-325mg Tab PO 1 tab Q6H PRN Administration Pain, Moderate (4-6) Pantoprazole Sodium 40 mg 03/01/22 07:30 03/03/22 09:03 Pantoprazole 40 Mg Tab PO 40 mg QDAC DARNELL Administration Sodium Bicarbonate 650 mg 02/28/22 10:00 03/03/22 21:02 Sodium Bicarbonate 650 Mg Tab PO 650 mg BID DARNELL Administration Sodium Chloride 10 ml 02/28/22 10:00 03/03/22 21:02 Sodium Chloride 0.9% 10 Ml Flush Syringe IV 10 ml BID DARNELL Administration Sodium Chloride 10 ml 02/28/22 09:00 Sodium Chloride 0.9% 10 Ml Flush Syringe IV PRN PRN LINE FLUSH Tiotropium [place] 2 puff 02/28/22 10:00 03/03/22 16:02 Tiotropium 18 Mcg Cap Inhalation IH Not Given DAILY DARNELL Warfarin Sodium 6 mg 03/04/22 17:00 Warfarin 2 Mg Tab PO 03/05/22 16:59 DAILY@1700 NR
--- NOTE | 2022-03-04 10:31 | Progress Note ---
Assessment and Plan Patient is [id number] male, who follows with Dr. West, with end-stage renal disease on HD MWF, hypertension, hyperlipidemia, and CAD with known lesion in proximal LAD and PCI of left circumflex with occasional shortness of breath, paroxysmal A. fib (on Coumadin), home o2 (4-5 L prn) who presents to [facility] today with complaints of nonproductive cough that began 1 week ago and he was progressively worsening over the past few days A. fib with VVR Acute on chronic HFrEF (25-30) Acute COPD Exacerbation vs acute respiratory failure CAD (s/p PCI - on plavix) Paroxysmal Afib (on coumadin) ESRD on HD H/o chronically elevated troponin H/o pericardial effusion Outpatient medications: Albuterol 2.5 mg, inhaled as needed, Plavix 75 mg p.o. daily, ferrous fumarate 325 mg p.o. daily, Fosrenol 1000 mg oral tab twice daily, metoprolol 12.5 mg p.o. twice daily, nifedipine 90 mg p.o. as needed, rosuvastatin 10 mg p.o. daily, Spiriva respimat 2.5 mcg/inh 2 puffs inhaled daily, spironolactone 25 mg p.o. twice daily, warfarin 5 mg PO daily, vitamin D3 1000 units p.o. daily, Symbicort 80 mcgs-4.5 mcgs/inh, 2 puffs inhaled twice daily Echocardiogram 02/28/2022: EF 25 to 30%. Left ventricle is mildly dilated. Severe global hypokinesis of left ventricle particularly apical area. Right ventricle systolic function is mildly reduced. Left atrium is borderline dilated. Moderate tricuspid regurgitation Echo 03/14/2021: Left ventricular systolic function is normal. Mild concentric left ventricular hypertrophy. LVEF is 50 to 55%. Mild to moderate circumferential pericardial effusion. No echocardiographic evidence of tampo nade physiology. This represents significant improvement when compared to TTE 03/03/2021. Large left pleural effusion. Lexiscan Stress Test02/15/2022 impressions: 1. Pharmacologic stress nuclear study is abnormal 2. There is a mildly reduced perfusion defect of small size in the mid anterior wall. There are moderately reduced perfusion defect of small to medium size and apical wall. There are moderately reduced perfusion defects of medium size in the lateral wall. The defect in the anterior segment is fixed. The defect in the apical segment is fixed. The defect in the lateral segment is partially reversible. 3. Abnormal SPECT perfusion imaging with ischemia in the lateral segment. 4. Stress EKG test results normal. 5. The calcified rest EF is at 30%. Calculated stress EF is at 31%.Recommendations: Due to findings clinical correlation is recommended Cardiac cath: 02/14/2021- rota of left circumflex stents: Resolute [place] 3.0 x 38 mm and unable to open OM1 Cath 02/13/2021: 1. [place]oba of the circumflex, but it unable to deliver stent secondary to calcification. The patient be transferred to [place] for rotational atherectomy. OM1 patent. OM 200%. OM 3 patent. RCA mid ectatic vessels with in-stent restenosis 20%, PDA patent.2. Left main distal 20%, LAD proximal 60 to 70%, stent patent, diagonal 1 ostial 90%. Rest of LAD patent 3. Normal LV. The patient will be loaded with Plavix. Discussed this function with the patient and the patient's family. Cardiac cath 08/29/2018: Left main large and patent LAD proximal mid stent patent diagonal 1 ostial 80% mid LAD patent. Circumflex is patent with mid stent widely patent. OM1 ostial 80 to 90% patent RCA, patent stents and normal LV function. Plan: Patient developed paroxysmal atrial fibrillation yesterday. Blood pressure is soft and will start IV amiodarone. Continue anticoagulation. We will go ahead and start p.o. amiodarone. We will add Lovenox today as his INR is subtherapeutic. Discussed with the patient, nurse, and hospitalist at bedside. Patient declined cardiac catheterization earlier this week. He is clinically stable without chest pain. Discharge once INR is therapeutic. Subjective Principal diagnosis: NSTEMI, acute on chronic HFrEF, volume overload Interval history: No symptoms. Wants to go home. Sitting up eating. Nurse at bedside. Objective Vital Signs Temp Pulse Pulse Pulse Resp Resp BP 03/04/22 08:08 97.8 F 72 18 92/57 03/04/22 04:16 82 03/04/22 03:26 98.1 F 77 18 117/60 03/04/22 02:15 18 03/03/22 22:24 110 H 109/70 03/03/22 21:53 03/03/22 21:29 107 H 04/30/22 21:27 107 H 03/03/22 21:02 84 99/66 03/03/22 20:00 100 H 18 03/03/22 19:00 97.9 F 84 18 03/03/22 15:37 98.3 F 102 H 18 86/62 03/03/22 14:00 115 H 03/03/22 13:09 109 H 18 03/03/22 11:36 97.7 F 18 82/45 BP Pulse Ox 03/04/22 08:08 98 03/04/22 04:16 03/04/22 03:26 100 03/04/22 02:15 03/03/22 22:24 99 03/03/22 21:53 98 03/03/22 21:29 97 03/03/22 21:27 03/03/22 21:02 03/03/22 20:00 03/03/22 19:00 99/66 98 03/03/22 15:37 98 03/03/22 14:00 03/03/22 13:09 03/03/22 11:36 - Physical Examination General: No Apparent Distress HEENT: Positive: Mucus Membranes Moist Neck: Positive: JVD/HJR Neuro: Positive: Grossly Intact Abdomen: Positive: Soft, Active Bowel Sounds Skin: Positive: Other (puncture sites to LFA fistula ) Extremities: Present: normal. Absent: edema - Labs and Meds Coagulation 03/04/22 Range/Units 06:53 PT 18.9 H (12.2-14.9) Sec. INR 1.41 H (0.87-1.13) Comprehensive Metabolic Panel 03/04/22 Range/Units 06:53 Sodium 136 L (137-145) mmol/L Potassium 4.4 (3.6-5.0) mmol/L Chloride 92.3 L (98-107) mmol/L Carbon Dioxide 20 L D (22-30) mmol/L BUN 63 H (9-20) mg/dL Creatinine 9.5 H (0.8-1.3) mg/dL Glucose 147 H (75-100) mg/dL Calcium 8.9 (8.4-10.2) mg/dL - Imaging and Cardiology EKG: report reviewed Echo: report reviewed - EKG Sinus rhythms and dysrhythmias: sinus rhythm Ventricular dysrhythmias: ventricular premature com - Allied health notes Allied health notes reviewed: nursing
[2022-03-04] MEDS ORDERED: ENOXAPARIN 100 MG/1 ML INJ SUB-Q SCH (11:00)
[2022-03-04] MEDS: TIOTROPIUM 18 MCG CAP INHALATION IH SCH (11:32)
[2022-03-04] MEDS: methylPREDNISolone Sod Succinate 125 MG/2 ML INJ IV SCH (11:46)
[2022-03-04] MEDS: SODIUM BICARBONATE 650 MG TAB PO SCH ×2 (11:46→21:38)
[2022-03-04] MEDS: CLOPIDOGREL 75 MG TAB PO SCH (11:47)
[2022-03-04] MEDS: METOPROLOL TARTRATE 50 MG TAB PO SCH ×2 (11:47→21:39)
[2022-03-04] MEDS: PANTOPRAZOLE 40 MG TAB PO SCH (11:47)
[2022-03-04] MEDS: CHOLECALCIFEROL (VIT D3) 1000 UNIT (25 mcg) TAB PO SCH (11:47)
[2022-03-04] MEDS: AMIODARONE 200 MG TAB PO SCH ×2 (11:48→21:38)
[2022-03-04] MEDS: AZITHROMYCIN/NS 500 MG/250 ML 500 MG/250 ML BAG IV SCH (11:49)
--- NOTE | 2022-03-04 13:17 | Progress Note ---
Assessment and Plan Assessment and plan: #Acute on chronic hypoxic respiratory failure -Patient uses 5 to 6 L of supplemental O2 at night -Currently on 3 L while inpatient -Discussed with patient possibility that he may require oxygen at all times -Continue bronchodilators, Robitussin for cough -Pulmonology consulted, assistance appreciated -Likely secondary to volume overload versus COPD exacerbation #COPD with exacerbation -Patient takes Spiriva, Symbicort and albuterol at home -Continue steroids, azithromycin, duo nebs and budesonide -Pulmonology following, will need follow-up at discharge #Chronic heart failure with preserved ejection fraction-not in acute exacerbatio n -Repeat echocardiogram ordered due to elevated BNP (BNP >70k) -Cardiology following, assistance appreciated #Hypotension -patient with low BP, making it difficult to control his Afib rate -responsive to fluid -will continue to monitor #CAD s/p stenting -Continue statin and Plavix #Atrial fibrillation #Secondary coagulopathy patient on Coumadin #Subtherapeutic INR -amiodarone converted to PO today -received a dose of lovenox for subtheraputic INR -warfarin dosing per Pharmacy -Continue metoprolol and warfarin #End-stage renal disease requiring hemodialysis -Patient hemodialysis Saturday/Saturday/Saturday -will continue HD while inpatient -Will renally dose medications and avoid nephrotoxic -Nephrology following, assistance appreciated #AV fistula malfunction -Per HD, AV fistula not pulling full clearance for adequate volume removal -fistulogram on hold until the patient gets Cardiac cath -patient prefers to follow up with Vascular surgery outpatient for fistulogram #Type II NSTEMI -Troponin continues to elevate; currently asymptomatic -Recently with abnormal stress test, patient declines [facility] at this time would prefer to Cath by his Primary [employer] Desktop Support -Cardiology following, assistance appreciated #Systemic inflammatory response syndrome with organ dysfunction -Leukocytosis and tachycardia -likely secondary to COPD exacerbation #Advanced care planning -Disease education conducted, care plan discussed, diagnoses discussed, prognosis discussed, and patient and at bedside acknowledges understanding with care plan -Time: +30 min History Interval history: No acute events overnight. Updated patient about current care plan. He denies lightheadedness, dizziness and chest pain. Hospitalist Physical - Physical exam Narrative exam: GENERAL: Well-developed well-nourished. Sitting on the side of the bed in no acute distress. HEENT: Cannula at 3 L/min CHEST/LUNGS: Coarse breath sounds bilaterally HEART/CARDIOVASCULAR: RRR. No murmur, rubs or gallops appreciated. ABDOMEN: +BS. NT/ND. NEURO: No focal motor deficit. Follows all commands. EXTREMITIES: No cyanosis, clubbing or edema. PSYCH: Cooperative. - Constitutional Vitals: Temp Pulse Resp BP Pulse Ox 98.3 F 77 18 86/50 99 03/04/22 11:28 03/04/22 11:47 03/04/22 11:28 03/04/22 11:28 03/04/22 11:28 General appearance: Present: mild distress HEART Score - HEART Score Troponin: Troponin T 1.860 ng/mL (0.00-0.029) H* D 03/03/22 06:32 Results - Labs CBC & Chem 7: 03/02/22 04:49 03/04/22 06:53 Labs: Laboratory Last Values WBC 12.2 K/mm3 (4.5-11.0) H 03/02/22 04:49 RBC 3.63 M/mm3 (3.65-5.03) L 03/02/22 04:49 Hgb 10.0 gm/dl (11.8-15.2) L 03/02/22 04:49 Hct 31.6 % (35.5-45.6) L 03/02/22 04:49 MCV 87 fl (84-94) 03/02/22 04:49 MCH 28 pg (28-32) 03/02/22 04:49 MCHC 32 % (32-34) 03/02/22 04:49 RDW 15.7 % (13.2-15.2) H 03/02/22 04:49 Plt Count 238 K/mm3 (140-440) 03/02/22 04:49 Lymph % (Auto) 8.3 % (13.4-35.0) L 02/28/22 03:41 [place] % (Auto) 7.2 % (0.0-7.3) 02/28/22 03:41 Eos % (Auto) 0.9 % (0.0-4.3) 02/28/22 03:41 Baso % (Auto) 0.4 % (0.0-1.8) 02/28/22 03:41 Lymph # (Auto) 1.0 K/mm3 (1.2-5.4) L 02/28/22 03:41 [place] # (Auto) 0.9 K/mm3 (0.0-0.8) H 02/28/22 03:41 Eos # (Auto) 0.1 K/mm3 (0.0-0.4) 02/28/22 03:41 Baso # (Auto) 0.0 K/mm3 (0.0-0.1) 02/28/22 03:41 Add Manual Diff Complete 03/01/22 05:08 Total Counted 100 03/01/22 05:08 Seg Neutrophils % Audit Tech 03/01/22 05:08 Seg Neuts % (Manual) 92.0 % (40.0-70.0) H 03/01/22 05:08 Band Neutrophils % 5.0 % 03/01/22 05:08 Lymphocytes % (Manual) 1.0 % (13.4-35.0) L 03/01/22 05:08 Reactive Lymphs % (Man) 0 % 03/01/22 05:08 Monocytes % (Manual) 2.0 % (0.0-7.3) 03/01/22 05:08 Eosinophils % (Manual) 0 % (0.0-4.3) 03/01/22 05:08 Basophils % (Manual) 0 % (0.0-1.8) 03/01/22 05:08 Metamyelocytes % 0 % 03/01/22 05:08 Myelocytes % 0 % 03/01/22 05:08 Promyelocytes % 0 % 03/01/22 05:08 Blast Cells % 0 % 03/01/22 05:08 Nucleated RBC % Not Reportable 03/01/22 05:08 Seg Neutrophils # 10.1 K/mm3 (1.8-7.7) H 02/28/22 03:41 Seg Neutrophils # Man 11.4 K/mm3 (1.8-7.7) H 03/01/22 05:08 Band Neutrophils # 0.6 K/mm3 03/01/22 05:08 Lymphocytes # (Manual) 0.1 K/mm3 (1.2-5.4) L 03/01/22 05:08 Abs React Lymphs (Man) 0.0 K/mm3 03/01/22 05:08 Monocytes # (Manual) 0.2 K/mm3 (0.0-0.8) 03/01/22 05:08 Eosinophils # (Manual) 0.0 K/mm3 (0.0-0.4) 03/01/22 05:08 Basophils # (Manual) 0.0 K/mm3 (0.0-0.1) 03/01/22 05:08 Metamyelocytes # 0.0 K/mm3 03/01/22 05:08 Myelocytes # 0.0 K/mm3 03/01/22 05:08 Promyelocytes # 0.0 K/mm3 03/01/22 05:08 Blast Cells # 0.0 K/mm3 03/01/22 05:08 WBC Morphology Not Reportable 03/01/22 05:08 Hypersegmented Neuts Not Reportable 03/01/22 05:08 Hyposegmented Neuts Not Reportable 03/01/22 05:08 Hypogranular Neuts Not Reportable 03/01/22 05:08 Smudge Cells Not Reportable 03/01/22 05:08 Toxic Granulation Not Reportable 03/01/22 05:08 Toxic Vacuolation Not Reportable 03/01/22 05:08 Dohle Bodies Not Reportable 03/01/22 05:08 Pelger-Huet Anomaly Not Reportable 03/01/22 05:08 Scarlet Rods Not Reportable 03/01/22 05:08 Platelet Estimate Consistent w auto 03/01/22 05:08 Clumped Platelets Not Reportable 03/01/22 05:08 Plt Clumps, EDTA Not Reportable 03/01/22 05:08 Large Platelets Not Reportable 03/01/22 05:08 Giant Platelets Not Reportable 03/01/22 05:08 Platelet Satelliting Not Reportable 03/01/22 05:08 Plt Morphology Comment Not Reportable 03/01/22 05:08 RBC Morphology Not Reportable 03/01/22 05:08 Dimorphic RBCs Not Reportable 03/01/22 05:08 Polychromasia Not Reportable 03/01/22 05:08 Hypochromasia Not Reportable 03/01/22 05:08 Poikilocytosis Few 03/01/22 05:08 Anisocytosis Not Reportable 03/01/22 05:08 Microcytosis Not Reportable 03/01/22 05:08 Macrocytosis Not Reportable 03/01/22 05:08 Spherocytes Rare 03/01/22 05:08 Pappenheimer Bodies Not Reportable 03/01/22 05:08 Sickle Cells Not Reportable 03/01/22 05:08 Target Cells Not Reportable 03/01/22 05:08 Tear Drop Cells Not Reportable 03/01/22 05:08 Ovalocytes Rare 03/01/22 05:08 Helmet Cells Not Reportable 03/01/22 05:08 Sadler-Casey Bodies Not Reportable 03/01/22 05:08 [place]indstone Rings Not Reportable 03/01/22 05:08 Danette Cells Rare 03/01/22 05:08 Bite Cells Not Reportable 03/01/22 05:08 Crenated Cell Not Reportable 03/01/22 05:08 Elliptocytes Not Reportable 03/01/22 05:08 Acanthocytes (Spur) Not Reportable 03/01/22 05:08 Rouleaux Not Reportable 03/01/22 05:08 Hemoglobin C Crystals Not Reportable 03/01/22 05:08 Schistocytes Not Reportable 03/01/22 05:08 Malaria parasites Not Reportable 03/01/22 05:08 Jose E Bodies Not Reportable 03/01/22 05:08 Hem Pathologist Commnt No 03/01/22 05:08 PT 18.9 Sec. (12.2-14.9) H 03/04/22 06:53 INR 1.41 (0.87-1.13) H 03/04/22 06:53 ABG pH 7.381 pH Units (7.350-7.450) 02/28/22 05:00 ABG pCO2 41.2 mm Hg 02/28/22 05:00 ABG pO2 91.3 mm Hg (80.0-90.0) H 02/28/22 05:00 ABG HCO3 23.9 mmol/L (20.0-26.0) 02/28/22 05:00 ABG O2 Saturation 97.0 % (95.0-99.0) 02/28/22 05:00 ABG O2 Content 13.5 (0.0-44) 02/28/22 05:00 ABG Base Excess -1.1 mmol/L (-2.0-3.0) 02/28/22 05:00 ABG Hemoglobin 9.9 gm/dl (14.0-18.0) L 02/28/22 05:00 ABG Carboxyhemoglobin 1.0 % (0.0-5.0) 02/28/22 05:00 ABG Methemoglobin 0.4 % (0.0-1.5) 02/28/22 05:00 Oxyhemoglobin 95.6 % (95.0-99.0) 02/28/22 05:00 FiO2 50 % 02/28/22 05:00 Sodium 136 mmol/L (137-145) L 03/04/22 06:53 Potassium 4.4 mmol/L (3.6-5.0) 03/04/22 06:53 Chloride 92.3 mmol/L (98-107) L 03/04/22 06:53 Carbon Dioxide 20 mmol/L (22-30) L D 03/04/22 06:53 Anion Gap 28 mmol/L 03/04/22 06:53 BUN 63 mg/dL (9-20) H 03/04/22 06:53 Creatinine 9.5 mg/dL (0.8-1.3) H 03/04/22 06:53 Estimated GFR 6 ml/min 03/04/22 06:53 BUN/Creatinine Ratio 7 % 03/04/22 06:53 Glucose 147 mg/dL (75-100) H 03/04/22 06:53 POC Glucose 120 mg/dL (70-105) H 03/04/22 11:27 Calcium 8.9 mg/dL (8.4-10.2) 03/04/22 06:53 Magnesium 2.00 mg/dL (1.7-2.3) 03/03/22 06:32 Total Bilirubin 0.20 mg/dL (0.1-1.2) 02/28/22 03:41 AST 18 units/L (5-40) 02/28/22 03:41 ALT 12 units/L (7-56) 02/28/22 03:41 Alkaline Phosphatase 51 units/L (35-129) 02/28/22 03:41 Total Creatine Kinase 192 units/L (55-170) H 02/28/22 03:41 CK-MB (CK-2) 7.2 ng/mL (0.0-4.0) H 02/28/22 03:41 CK-MB (CK-2) Rel Index 3.7 (0-4) 02/28/22 03:41 Troponin T 1.860 ng/mL (0.00-0.029) H* D 03/03/22 06:32 NT-Pro-B Natriuret Pep > 70606 pg/mL (0-900) H 02/28/22 03:41 Total Protein 6.9 g/dL (6.3-8.2) 02/28/22 03:41 Albumin 4.3 g/dL (3.9-5) 02/28/22 03:41 Albumin/Globulin Ratio 1.7 % 02/28/22 03:41 Triglycerides 102 mg/dL (2-149) 02/28/22 03:41 Cholesterol 147 mg/dL (50-199) 02/28/22 03:41 LDL Cholesterol Direct 73 mg/dL (50-130) 02/28/22 03:41 HDL Cholesterol 54 mg/dL (40-59) 02/28/22 03:41 Cholesterol/HDL Ratio 2.72 % 02/28/22 03:41 Lipase 48 units/L (13-60) 02/28/22 03:41 Hep Bs Antigen Non-reactive (Negative) 02/28/22 14:23 Hep B Core IgM Ab Non-reactive (NonReactive) 02/28/22 14:23 Hepatitis C Antibody Non-reactive (NonReactive) 02/28/22 14:23 [place]/IV: Voiding Method Urinal Active Medications - Current Medications Current Medications: Generic Name Dose Route Start Last Admin Trade Name Freq PRN Reason Stop Dose Admin Acetaminophen 650 mg 02/28/22 09:00 03/04/22 02:15 Acetaminophen 325 Mg Tab PO 650 mg Q4H PRN Administration Pain MILD(1-3)/Fever >100.5/STOLL Albuterol 2.5 mg 02/28/22 09:00 Albuterol 2.5 Mg/3 Ml Nebu IH Q4HRT PRN Shortness Of Breath Albuterol/Ipratropium 1 ampul 03/01/22 08:00 03/04/22 07:38 Ipratropium/Albuterol Sulfate 3 Ml Ampul.Neb IH 1 ampul TIDRT DARNELL Administration Amiodarone HCl 200 mg 03/04/22 12:00 03/04/22 11:48 Amiodarone 200 Mg Tab PO 200 mg BID DARNELL Administration Arformoterol Tartrate 15 mcg 03/01/22 20:00 03/04/22 07:38 Arformoterol 15 Mcg/2 Ml Nebu IH 15 mcg Q12HRT DARNELL Administration Atorvastatin Calcium 10 mg 02/28/22 22:00 03/03/22 21:02 Atorvastatin 10 Mg Tab PO 10 mg QHS DARNELL Administration Budesonide 0.5 mg 02/28/22 20:00 03/04/22 07:38 Budesonide 0.5 Mg/2 Ml Nebu IH 0.5 mg Q12HRT DARNELL Administration Cholecalciferol 1,000 unit 02/28/22 10:00 03/04/22 11:47 Cholecalciferol (Vit D3) 1000 Unit (25 Mcg) Tab PO 1,000 unit DAILY DARNELL Administration Clopidogrel Bisulfate 75 mg 02/28/22 10:00 03/04/22 11:47 Clopidogrel 75 Mg Tab PO 75 mg QDAY [facility] Administration Enoxaparin Sodium 90 mg 03/04/22 11:00 03/04/22 11:41 Enoxaparin 100 Mg/1 Ml Inj 1 mg/kg (90 mg) 03/04/22 14:00 90 mg SUB-Q Administration ONCE@1100 [facility] Protocol Epoetin Eric-epbx 10,000 unit 02/28/22 09:00 02/28/22 20:30 Epoetin Eric-Epbx 10,000 Unit/1 Ml Vial IV 10,000 unit LIZANDRO PRN Administration HEMODIALYSIS Guaifenesin 10 ml 02/28/22 10:00 Guaifenesin Dm 200/20 Mg Oral Liqd 10 Ml PO QID PRN Cough Sodium Chloride 100 mls @ 999 mls/hr 03/02/22 10:00 Nacl 0.9% IV LIZANDRO PRN Hypotension Amiodarone HCl 900 mg/ 500 mls @ 33.333 mls/hr 03/03/22 12:00 03/03/22 19:45 Dextrose IV 0.5 mg/min DIRECT DARNELL 16.667 mls/hr Titration Protocol 1 MG/MIN Lanthanum Carbonate 1,000 mg 02/28/22 16:30 03/03/22 16:47 Lanthanum Carbonate 500 Mg Tab PO 1,000 mg BIDAC DARNELL Administration Methylprednisolone Sodium Succinate 60 mg 03/03/22 10:00 03/04/22 11:46 Methylprednisolone Sod Succinate 125 Mg/2 Ml Inj IV 60 mg QDAY DARNELL Administration Metoprolol Tartrate 50 mg 02/28/22 10:00 03/04/22 11:47 Metoprolol Tartrate 50 Mg Tab PO 50 mg BID DARNELL Administration Naloxone HCl 0.1 mg 02/28/22 09:00 Naloxone 0.4 Mg/1 Ml Inj IV Q2MIN PRN Res Rate </= 8 or 02 SAT < 92% Ondansetron HCl 4 mg 02/28/22 09:00 Ondansetron 4 Mg/2 Ml Inj IV Q8H PRN Nausea And Vomiting Oxycodone/Acetaminophen 1 tab 02/28/22 09:00 03/02/22 22:55 Oxycodone /Acetaminophen 5-325mg Tab PO 1 tab Q6H PRN Administration Pain, Moderate (4-6) Pantoprazole Sodium 40 mg 03/01/22 07:30 03/04/22 11:47 Pantoprazole 40 Mg Tab PO 40 mg QDAC DARNELL Administration Sodium Bicarbonate 650 mg 02/28/22 10:00 03/04/22 11:46 Sodium Bicarbonate 650 Mg Tab PO 650 mg BID DARNELL Administration Sodium Chloride 10 ml 02/28/22 10:00 03/03/22 21:02 Sodium Chloride 0.9% 10 Ml Flush Syringe IV 10 ml BID DARNELL Administration Sodium Chloride 10 ml 02/28/22 09:00 Sodium Chloride 0.9% 10 Ml Flush Syringe IV PRN PRN LINE FLUSH Tiotropium [place] 2 puff 02/28/22 10:00 03/04/22 11:32 Tiotropium 18 Mcg Cap Inhalation IH Not Given DAILY DARNELL Warfarin Sodium 6 mg 03/04/22 17:00 Warfarin 2 Mg Tab PO 03/05/22 16:59 DAILY@1700 NR Nutrition/Malnutrition Assess - Dietary Evaluation Nutrition/Malnutrition Findings: Nutrition Notes Start: 02/28/22 11:20 Freq: Status: Active Protocol: Document 02/28/22 11:20 KRISTIN (Rec: 02/28/22 11:42 KRISTIN [id number]) Nutrition Notes Need for Assessment generated from: Education Initial or Follow up Assessment Current Diagnosis CKD (stage V CKD),COPD, Coronary Artery Disease, Hypertension,Respiratory Failure,Hyperlipidemia Other Pertinent Diagnosis ESRD+HD, HFpEF, NSTEMI II, SIRS, Atrial Fibrilation, ND, GERD, OA. Current Diet Renal Diet (since B 02/28). Labs/Tests 02/28: Na 135, Cl 91.4, CO2 21 , BUN 61, Crea 10.4, Glu 121. Pertinent Medications 02/28:" Vit D3, Warfarin 6 mg, others nutritionally unremarkable. Height 5 ft 10 in Weight 82.554 kg [place] Body Weight (kg) 75.45 BMI 26.1 Weight change and time frame None reported at admission. Weight Status Overweight Subjective/Other Information RD consult for warfarine use education. No reports available on Pt's PO intake of meals at the time . Pt is on Venturi Mask+, O2 saturation @ 98%, according to Physical Assessment history notes. Pt has been on Coumadin since 04/2021, not a candidaste for [employer]. Percent of energy/protein needs met: Prescribed Renal Diet provides for energy/protein needs (2, 072 Kcal/77 g) during LOS. Burn Absent Trauma Absent GI Symptoms None Food Allergy No Skin Integrity/Comment Assessment WNL. Minimum of two criteria No #1 Nutrition Diagnosis No nutrition diagnosis at this time Is patient on ventilator? No Is Patient Ambulatory and/or Out of Bed Yes [facility] [ 2010.827 [id number]] Calculation Used for Recommendations [facility] Additional Notes Protein: >1.2 g/Kg ABW; >100 g /day. Fluids: 1 ml/Kcal, or as per MD. Nutrition Intervention Revisit per MD consult or patient Sign Off request: Additional Comments Continue monitoring food tolerance, %PO intake of meals , and BM.
--- NOTE | 2022-03-04 14:57 | Progress Note ---
Assessment and Plan Patient is 81 YO Male with COPD, CAD, S/P Stent Placement, HLD, ESRD on HD M/W/F, HTN, Hyperlipidemia, Paroxysmal Atrial Fibrillation currently on therapeutic anticoagulation with Coumadin, MN, Diastolic CHF, OA, COPD chronic hypoxia on home oxygen [facility] ED with complaint of persistent cough that has been ongoing for the past week with sensation of phlegm stuck at the back of his throat. He also reports worsening shortness of breath he is normally on 4 to 5 L of oxygen at home but last night had to go up to 8 L prior to presenting to the ED. in the ED he was given steroids and nebulizer treatment and placed on a full Venturi mask. His saturation is 100% . He denies any fever nausea vomiting or diarrhea he denies any chest pain or leg swelling. He denies any change in his medications or diet . He reports compliance with his dialysis. Patient has history of prostate cance in remission. Patient has history of smoking,. Denies akcohol or drug abuse. 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 Allergic to Atorvastatin, simvastatin, Cipro. Patient awake and on 2 litres O2. O2 saturation 99%.Sitting up by the side of the bed. No acute respiratory distress. Denies chest pain, shortness of breath . Has slight cough. Patient afebrile. Has mild leukocytosis. Blood pressure 86/50 (MAP 63).Denies dizziness. Patient asymptomatic. pulse 74, Respirations 18. Patients INR 1.41 03/04/22 Patient is on warfarin as per protocol. Chest xray obtained 02/28/22 reported No acute abnormality of the chest. Patient is on I/V solumedrol, Zithromax, Brovana/Budesonide aerosol treatments, DUOneb aerosol treatments PRN, Protonix. - Patient Problems (1) Acute exacerbation of chronic obstructive pulmonary disease (COPD) Current Visit: Yes Status: Acute Plan to address problem: O2 2 litres via nasal canula. On I/V solumedrol. Brovanna/Budesonide aerosol treatments. Albuterol/atrovent aerosol treatments q 6 hours prn for shortness of breath. Continue Protonix. Patients to days INR 1.41 (2) Acute on chronic heart failure with preserved ejection fraction (HFpEF) Current Visit: Yes Status: Acute Plan to address problem: Management as per cardiology. (3) NSTEMI (non-ST elevation myocardial infarction) Current Visit: Yes Status: Acute Plan to address problem: Management as per cardiology. (4) End-stage renal disease on hemodialysis Current Visit: Yes Status: Chronic Plan to address problem: Management as per nephrology. (5) Anemia Current Visit: No Status: Acute Qualifiers: Anemia type: unspecified type Qualified Code(s): D64.9 - Anemia, unspec ified Plan to address problem: Management as per primary care Hematology and nephrology. (6) Atrial fibrillation with rapid ventricular response Current Visit: No Status: Acute Plan to address problem: Management as per cardiology. Patients to days INR 1.41. Patient is on coumadin protocol. Subjective Date of service: 03/04/22 Principal diagnosis: NSTEMI, acute on chronic HFrEF, volume overload Interval history: Patient is 81 YO Male with COPD, CAD, S/P Stent Placement, HLD, ESRD on HD M/W/F, HTN, Hyperlipidemia, Paroxysmal Atrial Fibrillation currently on therapeutic anticoagulation with Coumadin, MN, Diastolic CHF, OA, COPD chronic hypoxia on home oxygen [facility] presents to [facility] ED with complaint of persistent cough that has been ongoing for the past week with sensation of phlegm stuck at the back of his throat. He also reports worsening shortness of breath he is normally on 4 to 5 L of oxygen at home but last night had to go up to 8 L prior to presenting to the ED. in the ED he was given steroids and nebulizer treatment and placed on a full Venturi mask. His saturation is 100% . He denies any fever nausea vomiting or diarrhea he denies any chest pain or leg swelling. He denies any change in his medications or diet . He reports compliance with his dialysis. Patient has history of prostate cance in remission. Patient has history of smoking,. Denies akcohol or drug abuse. 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 Allergic to Atorvastatin, simvastatin, Cipro. Patient awake and on 2 litres O2. O2 saturation 99%.Sitting up by the side of the bed. No acute respiratory distress. Denies chest pain, shortness of breath . Has slight cough. Patient afebrile. Has mild leukocytosis. Blood pressure 86/50 (MAP 63).Denies dizziness. Patient asymptomatic. pulse 74, Respirations 18. Patients INR 1.41 03/04/22 Patient is on warfarin as per protocol. Chest xray obtained 02/28/22 reported No acute abnormality of the chest. Patient is on I/V solumedrol, Zithromax, Brovana/Budesonide aerosol treatments, DUOneb aerosol treatments PRN, Protonix and warfarin. Objective Vital Signs - 12hr 03/04/22 03/04/22 03/04/22 03:26 04:16 07:38 Temperature 98.1 F Pulse Rate 77 82 Pulse Rate [ 71 Bilateral Throughout] Respiratory 18 Rate Respiratory 20 Rate [Bilateral Throughout] Blood Pressure 117/60 O2 Sat by Pulse 100 98 Oximetry 03/04/22 03/04/22 03/04/22 08:08 11:28 11:47 Temperature 97.8 F 98.3 F Pulse Rate 72 74 77 Pulse Rate [ Bilateral Throughout] Respiratory 18 18 Rate Respiratory Rate [Bilateral Throughout] Blood Pressure 92/57 86/50 O2 Sat by Pulse 98 99 Oximetry Constitutional: no acute distress, alert Eyes: non-icteric ENT: oropharynx moist Neck: supple, no lymphadenopathy, no JVD Effort: mildly labored Ascultation: Bilateral: diminished breath sounds, rhonchi Percussion: Bilateral: not dull Cardiovascular: regular rate and rhythm Gastrointestinal: normoactive bowel sounds, soft, non-tender, non-distended Integumentary: normal Extremities: no cyanosis, pulses normal, no ischemia or petechiae, edema Neurologic: non-focal exam (grossly), pupils equal and round, CN II-XII normal, motor strength normal and Psychiatric: mood appropriate, affect normal CBC and BMP: 03/02/22 04:49 03/05/22 05:45 ABG, PT/INR, D-dimer: ABG ABG pH 7.381 pH Units (7.350-7.450) 02/28/22 05:00 ABG pCO2 41.2 mm Hg 02/28/22 05:00 ABG pO2 91.3 mm Hg (80.0-90.0) H 02/28/22 05:00 ABG O2 Saturation 97.0 % (95.0-99.0) 02/28/22 05:00 PT/INR, D-dimer PT 18.9 Sec. (12.2-14.9) H 03/04/22 06:53 INR 1.41 (0.87-1.13) H 03/04/22 06:53 Abnormal lab findings: Abnormal Labs 02/28/22 02/28/22 02/28/22 03:41 03:41 03:54 WBC 12.2 H RBC Hgb 10.1 L Hct 32.2 L MCHC 31 L RDW 15.7 H Lymph % (Auto) 8.3 L Lymph # (Auto) 1.0 L Hickman # (Auto) 0.9 H Seg Neutrophils % 83.2 H Seg Neuts % (Manual) Lymphocytes % (Manual) Seg Neutrophils # 10.1 H Seg Neutrophils # Man Lymphocytes # (Manual) PT 33.3 H INR 2.80 H ABG pO2 ABG Hemoglobin Sodium 135 L Potassium Chloride 91.4 L Carbon Dioxide 21 L BUN 61 H Creatinine 10.4 H Glucose 121 H POC Glucose Total Creatine Kinase 192 H CK-MB (CK-2) 7.2 H Troponin T 0.576 H* NT-Pro-B Natriuret Pep > 03579 H 02/28/22 02/28/22 03/01/22 05:00 14:23 05:08 WBC 12.4 H RBC Hgb 10.6 L Hct 32.7 L MCHC RDW 15.4 H Lymph % (Auto) Lymph # (Auto) Hickman # (Auto) Seg Neutrophils % Seg Neuts % (Manual) 92.0 H Lymphocytes % (Manual) 1.0 L Seg Neutrophils # Seg Neutrophils # Man 11.4 H Lymphocytes # (Manual) 0.1 L PT INR ABG pO2 91.3 H ABG Hemoglobin 9.9 L Sodium Potassium Chloride Carbon Dioxide BUN Creatinine Glucose POC Glucose Total Creatine Kinase CK-MB (CK-2) Troponin T 0.764 H* D NT-Pro-B Natriuret Pep 03/01/22 03/01/22 03/02/22 05:08 05:08 04:49 WBC RBC Hgb Hct MCHC RDW Lymph % (Auto) Lymph # (Auto) Hickman # (Auto) Seg Neutrophils % Seg Neuts % (Manual) Lymphocytes % (Manual) Seg Neutrophils # Seg Neutrophils # Man Lymphocytes # (Manual) PT 35.6 H 35.6 H INR 3.04 H 3.04 H ABG pO2 ABG Hemoglobin Sodium Potassium 5.1 H Chloride 92.1 L Carbon Dioxide BUN 44 H Creatinine 7.9 H Glucose 124 H POC Glucose Total Creatine Kinase CK-MB (CK-2) Troponin T NT-Pro-B Natriuret Pep 03/02/22 03/02/22 03/03/22 04:49 04:49 06:32 WBC 12.2 H RBC 3.63 L Hgb 10.0 L Hct 31.6 L MCHC RDW 15.7 H Lymph % (Auto) Lymph # (Auto) Hickman # (Auto) Seg Neutrophils % Seg Neuts % (Manual) Lymphocytes % (Manual) Seg Neutrophils # Seg Neutrophils # Man Lymphocytes # (Manual) PT 24.3 H INR 1.91 H ABG pO2 ABG Hemoglobin Sodium 131 L Potassium 5.1 H Chloride 88.8 L Carbon Dioxide BUN 74 H Creatinine 10.2 H Glucose 136 H POC Glucose Total Creatine Kinase CK-MB (CK-2) Troponin T 1.200 H* D NT-Pro-B Natriuret Pep 03/03/22 03/03/22 03/03/22 06:32 11:57 16:12 WBC RBC Hgb Hct MCHC RDW Lymph % (Auto) Lymph # (Auto) Hickman # (Auto) Seg Neutrophils % Seg Neuts % (Manual) Lymphocytes % (Manual) Seg Neutrophils # Seg Neutrophils # Man Lymphocytes # (Manual) PT INR ABG pO2 ABG Hemoglobin Sodium 136 L Potassium Chloride 90.3 L Carbon Dioxide BUN 45 H Creatinine 7.3 H Glucose POC Glucose 120 H 156 H Total Creatine Kinase CK-MB (CK-2) Troponin T 1.860 H* D NT-Pro-B Natriuret Pep 03/03/22 03/04/22 03/04/22 20:31 06:53 06:53 WBC RBC Hgb Hct MCHC RDW Lymph % (Auto) Lymph # (Auto) Hickman # (Auto) Seg Neutrophils % Seg Neuts % (Manual) Lymphocytes % (Manual) Seg Neutrophils # Seg Neutrophils # Man Lymphocytes # (Manual) PT 18.9 H INR 1.41 H ABG pO2 ABG Hemoglobin Sodium 136 L Potassium Chloride 92.3 L Carbon Dioxide 20 L D BUN 63 H Creatinine 9.5 H Glucose 147 H POC Glucose 141 H Total Creatine Kinase CK-MB (CK-2) Troponin T NT-Pro-B Natriuret Pep 03/04/22 03/04/22 08:08 11:27 WBC RBC Hgb Hct MCHC RDW Lymph % (Auto) Lymph # (Auto) Hickman # (Auto) Seg Neutrophils % Seg Neuts % (Manual) Lymphocytes % (Manual) Seg Neutrophils # Seg Neutrophils # Man Lymphocytes # (Manual) PT INR ABG pO2 ABG Hemoglobin Sodium Potassium Chloride Carbon Dioxide BUN Creatinine Glucose POC Glucose 117 H 120 H Total Creatine Kinase CK-MB (CK-2) Troponin T NT-Pro-B Natriuret Pep Allied health notes reviewed: nursing
[2022-03-04] MEDS: LANTHANUM CARBONATE 500 MG TAB PO SCH ×2 (16:18→21:38)
[2022-03-04] MEDS ORDERED: WARFARIN 2 MG TAB PO NR (17:00)
[2022-03-04] MEDS: AMIODARONE 900 MG in DEXTROSE 5% IN WATER 482 ML IV SCH (18:00)
[2022-03-05 06:35] LABS: INR 1.44 (0.87-1.13)
[2022-03-05 06:38] LABS: Calcium 8.9 mg/dL (8.4-10.2)
--- NOTE | 2022-03-05 08:59 | Progress Note ---
Assessment and Plan This is a 81 year old man who presents with tachycardia, chest pain # ESRD: continue HD MWF or prn, due today - daily labs - renally dose meds - avoid nephrotoxins - renal diet - verbal consent obtained for HD # Anemia: last hemoglobin 10.0, continue ESAs with HD prn # HTN: UF as tolerated. BP soft # Secondary Hyperparathyroidism: continue home binders as needed, vitamin D analogs prn # NSTEMI: refused left heart cath, cardiology following # Respiratory Failure (Hypoxic): pulmonary following Subjective Date of service: 03/05/22 Principal diagnosis: NSTEMI, acute on chronic HFrEF, volume overload Interval history: Patient seen at bedside, denies any acute issues, states that he is feeling well. Denies chest pain, dyspnea, palpitations. Remains on amio gtt Objective - Exam Narrative Exam: Constitutional: no acute distress Head: NC/AT Neck: supple Lungs: clear to auscultation CV: RRR, no M/R/G Abdomen: soft, non-tender, bowel sounds present Back: nontender Extremities: no edema, pulses WNL Skin: intact Neuro: no focal deficits, alert and oriented x4 - Vital Signs Vital signs: Vital Signs - 12hr 03/04/22 03/04/22 03/04/22 21:17 22:00 22:40 Temperature 98.0 F Pulse Rate 73 77 Respiratory 18 Rate Blood Pressure 92/55 Blood Pressure [Right] O2 Sat by Pulse 97 97 98 Oximetry 03/04/22 03/05/22 03/05/22 23:44 00:00 04:00 Temperature 98.8 F 97.7 F Pulse Rate 80 88 72 Respiratory 18 18 Rate Blood Pressure 95/63 Blood Pressure 101/72 [Right] O2 Sat by Pulse 99 Oximetry 03/05/22 03/05/22 06:29 07:50 Temperature 97.6 F Pulse Rate 77 67 Respiratory 14 Rate Blood Pressure 102/64 Blood Pressure [Right] O2 Sat by Pulse 100 Oximetry - Lab 03/02/22 04:49 03/05/22 05:45 Most recent lab results ABG pH 7.381 pH Units (7.350-7.450) 02/28/22 05:00 ABG pCO2 41.2 mm Hg 02/28/22 05:00 ABG pO2 91.3 mm Hg (80.0-90.0) H 02/28/22 05:00 ABG HCO3 23.9 mmol/L (20.0-26.0) 02/28/22 05:00 ABG O2 Saturation 97.0 % (95.0-99.0) 02/28/22 05:00 Calcium 8.9 mg/dL (8.4-10.2) 03/05/22 05:45 Magnesium 2.00 mg/dL (1.7-2.3) 03/03/22 06:32 Medications & Allergies - Medications Allergies/Adverse Reactions: Allergies atorvastatin calcium [From Lipitor] Allergy (Mild, Verified 02/12/21 10:43) Unknown ACHES, RASH ciprofloxacin [From Cipro] Allergy (Mild, Verified 09/23/20 12:30) Bleeding NOSE BLEED ciprofloxacin HCl [From Cipro] Allergy (Mild, Verified 09/23/20 12:30) Bleeding NOSE BLEED simvastatin Allergy (Mild, Verified 09/23/20 12:30) Unknown ACHES Home Medications: Home Medications Medication Instructions Recorded Confirmed Last Taken Type ALBUTEROL NEB's [Proventil 0.083% 2.5 mg IH Q6HRT PRN #50 nebu 09/28/20 04/25/21 04/23/21 Rx NEBS] AtorvaSTATin 10 mg PO QHS #30 tablet 09/28/20 04/25/21 04/22/21 Rx Budesonide [Pulmicort Respules] 0.5 mg IH Q12HRT #30 nebu 09/28/20 04/25/21 04/22/21 Rx Epoetin Eric 10,000 Unit [Procrit] 10,000 unit IV LIZANDRO PRN vial 09/28/2002/28/21 12:39 Rx Ipratropium/Albuterol Sulfate 1 ampul IH TIDRT #50 ampul.neb 09/28/20 04/25/21 04/22/21 Rx [DUONEB *Not for PRN Use*] Sodium Bicarbonate 650 mg PO BID #60 09/28/20 04/25/21 04/23/21 Rx Tiotropium [Spiriva] 2 puff IH DAILY 30 Days #1 cap 09/28/20 04/25/21 04/23/21 Rx Clopidogrel [Plavix] 75 mg PO QDAY tablet 04/10/2404/25/21 04/22/21 Rx Cholecalciferol Vit D3 [Vitamin D3 1,000 unit PO DAILY tablet 03/03/21 04/25/21 04/23/21 Rx 1,000 UNIT TAB] Lanthanum Carbonate [Fosrenol] 1,000 mg PO BIDAC tab.chew 03/03/21 04/25/21 04/23/21 Rx Pantoprazole [Protonix TAB] 40 mg PO QDAC tablet 03/03/21 04/25/21 04/23/21 Rx Metoprolol [Lopressor TAB] 50 mg PO BID #60 tablet 03/16/21 04/25/21 04/23/21 Rx NIFEdipine [Nifedipine] 50 mg PO BID 02/28/22 02/28/22 Unknown History Active Medications: Generic Name Dose Route Start Last Admin Trade Name Freq PRN Reason Stop Dose Admin Acetaminophen 650 mg 02/28/22 09:00 03/04/22 23:09 Acetaminophen 325 Mg Tab PO 650 mg Q4H PRN Administration Pain MILD(1-3)/Fever >100.5/STOLL Albuterol 2.5 mg 02/28/22 09:00 Albuterol 2.5 Mg/3 Ml Nebu IH Q4HRT PRN Shortness Of Breath Albuterol/Ipratropium 1 ampul 03/01/22 08:00 03/04/22 20:29 Ipratropium/Albuterol Sulfate 3 Ml Ampul.Neb IH 1 ampul TIDRT DARNELL Administration Amiodarone HCl 200 mg 03/04/22 12:00 03/04/22 21:38 Amiodarone 200 Mg Tab PO 200 mg BID DARNELL Administration Arformoterol Tartrate 15 mcg 03/01/22 20:00 03/04/22 20:28 Arformoterol 15 Mcg/2 Ml Nebu IH 15 mcg Q12HRT DARNELL Administration Atorvastatin Calcium 10 mg 02/28/22 22:00 03/04/22 21:38 Atorvastatin 10 Mg Tab PO 10 mg QHS DARNELL Administration Budesonide 0.5 mg 02/28/22 20:00 03/04/22 20:28 Budesonide 0.5 Mg/2 Ml Nebu IH 0.5 mg Q12HRT DARNELL Administration Cholecalciferol 1,000 unit 02/28/22 10:00 03/04/22 11:47 Cholecalciferol (Vit D3) 1000 Unit (25 Mcg) Tab PO 1,000 unit DAILY DARNELL Administration Clopidogrel Bisulfate 75 mg 02/28/22 10:00 03/04/22 11:47 Clopidogrel 75 Mg Tab PO 75 mg QDAY DARNELL Administration Epoetin Eric-epbx 10,000 unit 02/28/22 09:00 02/28/22 20:30 Epoetin Eric-Epbx 10,000 Unit/1 Ml Vial IV 10,000 unit LIZANDRO PRN Administration HEMODIALYSIS Guaifenesin 10 ml 02/28/22 10:00 Guaifenesin Dm 200/20 Mg Oral Liqd 10 Ml PO QID PRN Cough Sodium Chloride 100 mls @ 999 mls/hr 03/02/22 10:00 Nacl 0.9% IV LIZANDRO PRN Hypotension Amiodarone HCl 900 mg/ 500 mls @ 33.333 mls/hr 03/03/22 12:00 03/04/22 18:00 Dextrose IV 0.5 mg/min DIRECT DARNELL 16.667 mls/hr Administration Protocol 1 MG/MIN Lanthanum Carbonate 1,000 mg 02/28/22 16:30 03/04/22 21:38 Lanthanum Carbonate 500 Mg Tab PO Not Given BIDAC DARNELL Methylprednisolone Sodium Succinate 60 mg 03/03/22 10:00 03/04/22 11:46 Methylprednisolone Sod Succinate 125 Mg/2 Ml Inj IV 60 mg QDAY DARNELL Administration Metoprolol Tartrate 50 mg 02/28/22 10:00 03/04/22 21:39 Metoprolol Tartrate 50 Mg Tab PO Not Given BID DARNELL Naloxone HCl 0.1 mg 02/28/22 09:00 Naloxone 0.4 Mg/1 Ml Inj IV Q2MIN PRN Res Rate </= 8 or 02 SAT < 92% Ondansetron HCl 4 mg 02/28/22 09:00 Ondansetron 4 Mg/2 Ml Inj IV Q8H PRN Nausea And Vomiting Oxycodone/Acetaminophen 1 tab 02/28/22 09:00 03/02/22 22:55 Oxycodone /Acetaminophen 5-325mg Tab PO 1 tab Q6H PRN Administration Pain, Moderate (4-6) Pantoprazole Sodium 40 mg 03/01/22 07:30 03/04/22 11:47 Pantoprazole 40 Mg Tab PO 40 mg QDAC DARNELL Administration Sodium Bicarbonate 650 mg 02/28/22 10:00 03/04/22 21:38 Sodium Bicarbonate 650 Mg Tab PO 650 mg BID DARNELL Administration Sodium Chloride 10 ml 02/28/22 10:00 03/04/22 21:38 Sodium Chloride 0.9% 10 Ml Flush Syringe IV 10 ml BID DARNELL Administration Sodium Chloride 10 ml 02/28/22 09:00 Sodium Chloride 0.9% 10 Ml Flush Syringe IV PRN PRN LINE FLUSH Tiotropium [place] 2 puff 02/28/22 10:00 03/04/22 11:32 Tiotropium 18 Mcg Cap Inhalation IH Not Given DAILY DARNELL Warfarin Sodium 6 mg 03/05/22 17:00 Warfarin 2 Mg Tab PO 03/06/22 16:59 DAILY@1700 NR
[2022-03-05] MEDS: IPRATROPIUM/ALBUTEROL SULFATE 3 ML AMPUL.NEB IH SCH ×4 (09:30→20:51)
[2022-03-05] MEDS: ARFORMOTEROL 15 MCG/2 ML NEBU IH SCH ×2 (09:30→20:51)
[2022-03-05] MEDS: BUDESONIDE 0.5 MG/2 ML NEBU IH SCH ×2 (09:30→20:51)
[2022-03-05] MEDS: TIOTROPIUM 18 MCG CAP INHALATION IH SCH (09:32)
[2022-03-05] MEDS: methylPREDNISolone Sod Succinate 125 MG/2 ML INJ IV SCH (10:46)
[2022-03-05] MEDS: METOPROLOL TARTRATE 50 MG TAB PO SCH (10:47)
[2022-03-05] MEDS: PANTOPRAZOLE 40 MG TAB PO SCH (10:48)
[2022-03-05] MEDS: CHOLECALCIFEROL (VIT D3) 1000 UNIT (25 mcg) TAB PO SCH (10:48)
[2022-03-05] MEDS: CLOPIDOGREL 75 MG TAB PO SCH (10:48)
[2022-03-05] MEDS: AMIODARONE 200 MG TAB PO SCH (10:48)
[2022-03-05] MEDS: LANTHANUM CARBONATE 500 MG TAB PO SCH ×2 (11:01→16:57)
[2022-03-05] MEDS: SODIUM BICARBONATE 650 MG TAB PO SCH (11:02)
--- NOTE | 2022-03-05 11:29 | Progress Note ---
Assessment and Plan Assessment and plan: #Acute on chronic hypoxic respiratory failure -Patient uses 5 to 6 L of supplemental O2 at night -Currently on 3 L while inpatient -Discussed with patient possibility that he may require oxygen at all times -Continue bronchodilators, Robitussin for cough -Pulmonology consulted, assistance appreciated -Likely secondary to volume overload versus COPD exacerbation #COPD with exacerbation -Patient takes Spiriva, Symbicort and albuterol at home -Continue steroids, azithromycin, duo nebs and budesonide -Pulmonology following, will need follow-up at discharge #Chronic heart failure with preserved ejection fraction-not in acute exacerbatio n -Repeat echocardiogram ordered due to elevated BNP (BNP >70k) -Cardiology following, assistance appreciated #Hypotension -patient with low BP, making it difficult to control his Afib rate -responsive to fluid -will continue to monitor #CAD s/p stenting -Continue statin and Plavix #Atrial fibrillation #Secondary coagulopathy patient on Coumadin #Subtherapeutic INR -amiodarone converted to PO today -received a dose of lovenox for subtheraputic INR -warfarin dosing per Pharmacy -Continue metoprolol and warfarin -will discharge once INR is therapeutic #End-stage renal disease requiring hemodialysis -Patient hemodialysis Saturday/Saturday/Saturday -will continue HD while inpatient -Will renally dose medications and avoid nephrotoxic -Nephrology following, assistance appreciated #AV fistula malfunction -Per HD, AV fistula not pulling full clearance for adequate volume removal -fistulogram on hold until the patient gets Cardiac cath -patient prefers to follow up with Vascular surgery outpatient for fistulogram #Type II NSTEMI -Troponin continues to elevate; currently asymptomatic -Recently with abnormal stress test, patient declines [facility] at this time would prefer to 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 Updated patient about current care plan. He denies lightheadedness, dizziness and chest pain. Hospitalist Physical - Physical exam Narrative exam: GENERAL: Well-developed well-nourished. Sitting on the side of the bed in no acute distress. HEENT: Cannula at 3 L/min CHEST/LUNGS: Coarse breath sounds bilaterally HEART/CARDIOVASCULAR: RRR. No murmur, rubs or gallops appreciated. ABDOMEN: +BS. NT/ND. NEURO: No focal motor deficit. Follows all commands. EXTREMITIES: No cyanosis, clubbing or edema. PSYCH: Cooperative. - Constitutional Vitals: Temp Pulse Resp BP Pulse Ox 97.6 F 70 17 102/64 100 03/05/22 07:50 03/05/22 10:47 03/05/22 08:00 03/05/22 07:50 03/05/22 09:33 General appearance: Present: mild distress HEART Score - HEART Score Troponin: Troponin T 1.860 ng/mL (0.00-0.029) H* D 03/03/22 06:32 Results - Labs CBC & Chem 7: 03/02/22 04:49 03/05/22 05:45 Labs: Laboratory Last Values WBC 12.2 K/mm3 (4.5-11.0) H 03/02/22 04:49 RBC 3.63 M/mm3 (3.65-5.03) L 03/02/22 04:49 Hgb 10.0 gm/dl (11.8-15.2) L 03/02/22 04:49 Hct 31.6 % (35.5-45.6) L 03/02/22 04:49 MCV 87 fl (84-94) 03/02/22 04:49 MCH 28 pg (28-32) 03/02/22 04:49 MCHC 32 % (32-34) 03/02/22 04:49 RDW 15.7 % (13.2-15.2) H 03/02/22 04:49 Plt Count 238 K/mm3 (140-440) 03/02/22 04:49 Lymph % (Auto) 8.3 % (13.4-35.0) L 02/28/22 03:41 Christian % (Auto) 7.2 % (0.0-7.3) 02/28/22 03:41 Eos % (Auto) 0.9 % (0.0-4.3) 02/28/22 03:41 Baso % (Auto) 0.4 % (0.0-1.8) 02/28/22 03:41 Lymph # (Auto) 1.0 K/mm3 (1.2-5.4) L 02/28/22 03:41 [place] # (Auto) 0.9 K/mm3 (0.0-0.8) H 02/28/22 03:41 Eos # (Auto) 0.1 K/mm3 (0.0-0.4) 02/28/22 03:41 Baso # (Auto) 0.0 K/mm3 (0.0-0.1) 02/28/22 03:41 Add Manual Diff Complete 03/01/22 05:08 Total Counted 100 03/01/22 05:08 Seg Neutrophils % Supervisor Sunglasses 03/01/22 05:08 Seg Neuts % (Manual) 92.0 % (40.0-70.0) H 03/01/22 05:08 Band Neutrophils % 5.0 % 03/01/22 05:08 Lymphocytes % (Manual) 1.0 % (13.4-35.0) L 03/01/22 05:08 Reactive Lymphs % (Man) 0 % 03/01/22 05:08 Monocytes % (Manual) 2.0 % (0.0-7.3) 03/01/22 05:08 Eosinophils % (Manual) 0 % (0.0-4.3) 03/01/22 05:08 Basophils % (Manual) 0 % (0.0-1.8) 03/01/22 05:08 Metamyelocytes % 0 % 03/01/22 05:08 Myelocytes % 0 % 03/01/22 05:08 Promyelocytes % 0 % 03/01/22 05:08 Blast Cells % 0 % 03/01/22 05:08 Nucleated RBC % Not Reportable 03/01/22 05:08 Seg Neutrophils # 10.1 K/mm3 (1.8-7.7) H 02/28/22 03:41 Seg Neutrophils # Man 11.4 K/mm3 (1.8-7.7) H 03/01/22 05:08 Band Neutrophils # 0.6 K/mm3 03/01/22 05:08 Lymphocytes # (Manual) 0.1 K/mm3 (1.2-5.4) L 03/01/22 05:08 Abs React Lymphs (Man) 0.0 K/mm3 03/01/22 05:08 Monocytes # (Manual) 0.2 K/mm3 (0.0-0.8) 03/01/22 05:08 Eosinophils # (Manual) 0.0 K/mm3 (0.0-0.4) 03/01/22 05:08 Basophils # (Manual) 0.0 K/mm3 (0.0-0.1) 03/01/22 05:08 Metamyelocytes # 0.0 K/mm3 03/01/22 05:08 Myelocytes # 0.0 K/mm3 03/01/22 05:08 Promyelocytes # 0.0 K/mm3 03/01/22 05:08 Blast Cells # 0.0 K/mm3 03/01/22 05:08 WBC Morphology Not Reportable 03/01/22 05:08 Hypersegmented Neuts Not Reportable 03/01/22 05:08 Hyposegmented Neuts Not Reportable 03/01/22 05:08 Hypogranular Neuts Not Reportable 03/01/22 05:08 Smudge Cells Not Reportable 03/01/22 05:08 Toxic Granulation Not Reportable 03/01/22 05:08 Toxic Vacuolation Not Reportable 03/01/22 05:08 Dohle Bodies Not Reportable 03/01/22 05:08 Pelger-Huet Anomaly Not Reportable 03/01/22 05:08 Scarlet Rods Not Reportable 03/01/22 05:08 Platelet Estimate Consistent w auto 03/01/22 05:08 Clumped Platelets Not Reportable 03/01/22 05:08 Plt Clumps, EDTA Not Reportable 03/01/22 05:08 Large Platelets Not Reportable 03/01/22 05:08 Giant Platelets Not Reportable 03/01/22 05:08 Platelet Satelliting Not Reportable 03/01/22 05:08 Plt Morphology Comment Not Reportable 03/01/22 05:08 RBC Morphology Not Reportable 03/01/22 05:08 Dimorphic RBCs Not Reportable 03/01/22 05:08 Polychromasia Not Reportable 03/01/22 05:08 Hypochromasia Not Reportable 03/01/22 05:08 Poikilocytosis Few 03/01/22 05:08 Anisocytosis Not Reportable 03/01/22 05:08 Microcytosis Not Reportable 03/01/22 05:08 Macrocytosis Not Reportable 03/01/22 05:08 Spherocytes Rare 03/01/22 05:08 Pappenheimer Bodies Not Reportable 03/01/22 05:08 Sickle Cells Not Reportable 03/01/22 05:08 Target Cells Not Reportable 03/01/22 05:08 Tear Drop Cells Not Reportable 03/01/22 05:08 Ovalocytes Rare 03/01/22 05:08 Helmet Cells Not Reportable 03/01/22 05:08 Sadler-Knippa Bodies Not Reportable 03/01/22 05:08 Procious Rings Not Reportable 03/01/22 05:08 Danette Cells Rare 03/01/22 05:08 Bite Cells Not Reportable 03/01/22 05:08 Crenated Cell Not Reportable 03/01/22 05:08 Elliptocytes Not Reportable 03/01/22 05:08 Acanthocytes (Spur) Not Reportable 03/01/22 05:08 Rouleaux Not Reportable 03/01/22 05:08 Hemoglobin C Crystals Not Reportable 03/01/22 05:08 Schistocytes Not Reportable 03/01/22 05:08 Malaria parasites Not Reportable 03/01/22 05:08 Jose E Bodies Not Reportable 03/01/22 05:08 Hem Pathologist Commnt No 03/01/22 05:08 PT 19.3 Sec. (12.2-14.9) H 03/05/22 05:45 INR 1.44 (0.87-1.13) H 03/05/22 05:45 ABG pH 7.381 pH Units (7.350-7.450) 02/28/22 05:00 ABG pCO2 41.2 mm Hg 02/28/22 05:00 ABG pO2 91.3 mm Hg (80.0-90.0) H 02/28/22 05:00 ABG HCO3 23.9 mmol/L (20.0-26.0) 02/28/22 05:00 ABG O2 Saturation 97.0 % (95.0-99.0) 02/28/22 05:00 ABG O2 Content 13.5 (0.0-44) 02/28/22 05:00 ABG Base Excess -1.1 mmol/L (-2.0-3.0) 02/28/22 05:00 ABG Hemoglobin 9.9 gm/dl (14.0-18.0) L 02/28/22 05:00 ABG Carboxyhemoglobin 1.0 % (0.0-5.0) 02/28/22 05:00 ABG Methemoglobin 0.4 % (0.0-1.5) 02/28/22 05:00 Oxyhemoglobin 95.6 % (95.0-99.0) 02/28/22 05:00 FiO2 50 % 02/28/22 05:00 Sodium 134 mmol/L (137-145) L 03/05/22 05:45 Potassium 5.2 mmol/L (3.6-5.0) H 03/05/22 05:45 Chloride 91.0 mmol/L (98-107) L 03/05/22 05:45 Carbon Dioxide 21 mmol/L (22-30) L 03/05/22 05:45 Anion Gap 27 mmol/L 03/05/22 05:45 BUN 76 mg/dL (9-20) H 03/05/22 05:45 Creatinine 11.1 mg/dL (0.8-1.3) H 03/05/22 05:45 Estimated GFR 5 ml/min 03/05/22 05:45 BUN/Creatinine Ratio 7 % 03/05/22 05:45 Glucose 107 mg/dL (75-100) H 03/05/22 05:45 POC Glucose 105 mg/dL (70-105) 03/05/22 07:48 Calcium 8.9 mg/dL (8.4-10.2) 03/05/22 05:45 Magnesium 2.00 mg/dL (1.7-2.3) 03/03/22 06:32 Total Bilirubin 0.20 mg/dL (0.1-1.2) 02/28/22 03:41 AST 18 units/L (5-40) 02/28/22 03:41 ALT 12 units/L (7-56) 02/28/22 03:41 Alkaline Phosphatase 51 units/L (35-129) 02/28/22 03:41 Total Creatine Kinase 192 units/L (55-170) H 02/28/22 03:41 CK-MB (CK-2) 7.2 ng/mL (0.0-4.0) H 02/28/22 03:41 CK-MB (CK-2) Rel Index 3.7 (0-4) 02/28/22 03:41 Troponin T 1.860 ng/mL (0.00-0.029) H* D 03/03/22 06:32 NT-Pro-B Natriuret Pep > 48996 pg/mL (0-900) H 02/28/22 03:41 Total Protein 6.9 g/dL (6.3-8.2) 02/28/22 03:41 Albumin 4.3 g/dL (3.9-5) 02/28/22 03:41 Albumin/Globulin Ratio 1.7 % 02/28/22 03:41 Triglycerides 102 mg/dL (2-149) 02/28/22 03:41 Cholesterol 147 mg/dL (50-199) 02/28/22 03:41 LDL Cholesterol Direct 73 mg/dL (50-130) 02/28/22 03:41 HDL Cholesterol 54 mg/dL (40-59) 02/28/22 03:41 Cholesterol/HDL Ratio 2.72 % 02/28/22 03:41 Lipase 48 units/L (13-60) 02/28/22 03:41 Hep Bs Antigen Non-reactive (Negative) 02/28/22 14:23 Hep B Core IgM Ab Non-reactive (NonReactive) 02/28/22 14:23 Hepatitis C Antibody Non-reactive (NonReactive) 02/28/22 14:23 [place]/IV: Voiding Method Urinal Active Medications - Current Medications Current Medications: Generic Name Dose Route Start Last Admin Trade Name Freq PRN Reason Stop Dose Admin Acetaminophen 650 mg 02/28/22 09:00 03/04/22 23:09 Acetaminophen 325 Mg Tab PO 650 mg Q4H PRN Administration Pain MILD(1-3)/Fever >100.5/STOLL Albuterol 2.5 mg 02/28/22 09:00 Albuterol 2.5 Mg/3 Ml Nebu IH Q4HRT PRN Shortness Of Breath Albuterol/Ipratropium 1 ampul 03/01/22 08:00 03/05/22 09:31 Ipratropium/Albuterol Sulfate 3 Ml Ampul.Neb IH Not Given TIDRT DARNELL Amiodarone HCl 200 mg 03/04/22 12:00 03/05/22 10:48 Amiodarone 200 Mg Tab PO 200 mg BID DARNELL Administration Arformoterol Tartrate 15 mcg 03/01/22 20:00 03/05/22 09:30 Arformoterol 15 Mcg/2 Ml Nebu IH 15 mcg Q12HRT DARNELL Administration Atorvastatin Calcium 10 mg 02/28/22 22:00 03/04/22 21:38 Atorvastatin 10 Mg Tab PO 10 mg QHS DARNELL Administration Budesonide 0.5 mg 02/28/22 20:00 03/05/22 09:30 Budesonide 0.5 Mg/2 Ml Nebu IH 0.5 mg Q12HRT DARNELL Administration Cholecalciferol 1,000 unit 02/28/22 10:00 03/05/22 10:48 Cholecalciferol (Vit D3) 1000 Unit (25 Mcg) Tab PO 1,000 unit DAILY DARNELL Administration Clopidogrel Bisulfate 75 mg 02/28/22 10:00 03/05/22 10:48 Clopidogrel 75 Mg Tab PO 75 mg QDAY DARNELL Administration Epoetin Eric-epbx 10,000 unit 02/28/22 09:00 02/28/22 20:30 Epoetin Eric-Epbx 10,000 Unit/1 Ml Vial IV 10,000 unit LIZANDRO PRN Administration HEMODIALYSIS Guaifenesin 10 ml 02/28/22 10:00 Guaifenesin Dm 200/20 Mg Oral Liqd 10 Ml PO QID PRN Cough Sodium Chloride 100 mls @ 999 mls/hr 03/02/22 10:00 Nacl 0.9% IV LIZANDRO PRN Hypotension Lanthanum Carbonate 1,000 mg 02/28/22 16:30 03/05/22 11:01 Lanthanum Carbonate 500 Mg Tab PO 1,000 mg BIDAC DARNELL Administration Methylprednisolone Sodium Succinate 60 mg 03/03/22 10:00 03/05/22 10:46 Methylprednisolone Sod Succinate 125 Mg/2 Ml Inj IV 60 mg QDAY DARNELL Administration Metoprolol Tartrate 50 mg 02/28/22 10:00 03/05/22 10:47 Metoprolol Tartrate 50 Mg Tab PO 50 mg BID DARNELL Administration Naloxone HCl 0.1 mg 02/28/22 09:00 Naloxone 0.4 Mg/1 Ml Inj IV Q2MIN PRN Res Rate </= 8 or 02 SAT < 92% Ondansetron HCl 4 mg 02/28/22 09:00 Ondansetron 4 Mg/2 Ml Inj IV Q8H PRN Nausea And Vomiting Oxycodone/Acetaminophen 1 tab 02/28/22 09:00 03/02/22 22:55 Oxycodone /Acetaminophen 5-325mg Tab PO 1 tab Q6H PRN Administration Pain, Moderate (4-6) Pantoprazole Sodium 40 mg 03/01/22 07:30 03/05/22 10:48 Pantoprazole 40 Mg Tab PO 40 mg QDAC DARNELL Administration Sodium Bicarbonate 650 mg 02/28/22 10:00 03/05/22 11:02 Sodium Bicarbonate 650 Mg Tab PO 650 mg BID DARNELL Administration Sodium Chloride 10 ml 02/28/22 10:00 03/05/22 10:49 Sodium Chloride 0.9% 10 Ml Flush Syringe IV 10 ml BID DARNELL Administration Sodium Chloride 10 ml 02/28/22 09:00 Sodium Chloride 0.9% 10 Ml Flush Syringe IV PRN PRN LINE FLUSH Tiotropium [place] 2 puff 02/28/22 10:00 03/05/22 09:32 Tiotropium 18 Mcg Cap Inhalation IH Not Given DAILY DARNELL Warfarin Sodium 6 mg 03/05/22 17:00 Warfarin 2 Mg Tab PO 03/06/22 16:59 DAILY@1700 NR Nutrition/Malnutrition Assess - Dietary Evaluation Nutrition/Malnutrition Findings: Nutrition Notes Start: 02/28/22 11:20 Freq: Status: Active Protocol: Document 02/28/22 11:20 KRISTIN (Rec: 02/28/22 11:42 KRISTIN [id number]) Nutrition Notes Need for Assessment generated from: Education Initial or Follow up Assessment Current Diagnosis CKD (stage V CKD),COPD, Coronary Artery Disease, Hypertension,Respiratory Failure,Hyperlipidemia Other Pertinent Diagnosis ESRD+HD, HFpEF, NSTEMI II, SIRS, Atrial Fibrilation, RI, GERD, OA. Current Diet Renal Diet (since B 02/28). Labs/Tests 02/28: Na 135, Cl 91.4, CO2 21 , BUN 61, Crea 10.4, Glu 121. Pertinent Medications 02/28:" Vit D3, Warfarin 6 mg, others nutritionally unremarkable. Height 5 ft 10 in Weight 82.554 kg [place] Body Weight (kg) 75.45 BMI 26.1 Weight change and time frame None reported at admission. Weight Status Overweight Subjective/Other Information RD consult for warfarine use education. No reports available on Pt's PO intake of meals at the time . Pt is on Venturi Mask+, O2 saturation @ 98%, according to Physical Assessment history notes. Pt has been on Coumadin since 04/2021, not a candidaste for [employer]. Percent of energy/protein needs met: Prescribed Renal Diet provides for energy/protein needs (2, 072 Kcal/77 g) during LOS. Burn Absent Trauma Absent GI Symptoms None Food Allergy No Skin Integrity/Comment Assessment WNL. Minimum of two criteria No #1 Nutrition Diagnosis No nutrition diagnosis at this time Is patient on ventilator? No Is Patient Ambulatory and/or Out of Bed Yes [facility] [ 2010.827 [id number]] Calculation Used for Recommendations [facility] Additional Notes Protein: >1.2 g/Kg ABW; >100 g /day. Fluids: 1 ml/Kcal, or as per MD. Nutrition Intervention Revisit per MD consult or patient Sign Off request: Additional Comments Continue monitoring food tolerance, %PO intake of meals , and BM.
--- NOTE | 2022-03-05 12:10 | Progress Note ---
Assessment and Plan Acute on chronic hypoxemic respiratory failure Acute exacerbation of COPD End-stage renal disease, on dialysis Coronary artery disease NSTEMI Secondary coagulopathy Atrial fibrillation with a controlled rate Heart failure with preserved ejection fraction Osteoarthritis - supplemental oxygen to keep O2 sats > 90% - continue Bronchodilators (JESÚS & LABA) with pulm hygiene per RT - continue systemic steroids with slow taper - continue inhaled corticosteroids - continue to avoid nephrotoxins, renally dose all medications - mobility protocols to prevent pressure ulcers - PT/OT as tolerated - Wound care per RN/WCT - continue accuchecks with glycemic control per SSI for target blood glucose < 180 mg/dL - tobacco abstinence strongly counseled at the bedside - home oxygen evaluation at discharge - prn analgesia per pain score - GI & VTE prophylaxis - Flu & pneumovax per protocol - Pulmonary out patient follow up for PFTs and optimization of respiratory status - continue other care per attending / other consultants ... re-evaluate in am & prn Subjective Date of service: 03/05/22 Principal diagnosis: NSTEMI, acute on chronic HFrEF, volume overload Interval history: Patient is seen today for: Acute on chronic hypoxemic respiratory failure; AE- COPD; CAD; ESRD on dialysis; NSTEMI; A-Fib; HFpEF Seen and examined at bedside; 24hour events reviewed; nursing and respiratory care staff consulted; no adverse overnight events reported to me; resting peacefully in bed; Objective Vital Signs - 12hr 03/05/22 03/05/22 03/05/22 04:00 06:29 07:50 Temperature 97.7 F 97.6 F Pulse Rate 72 77 67 Pulse Rate [ Bilateral Throughout] Respiratory 18 14 Rate Respiratory Rate [Bilateral Throughout] Blood Pressure 95/63 102/64 O2 Sat by Pulse 99 100 Oximetry 03/05/22 03/05/22 03/05/22 08:00 09:33 10:47 Temperature Pulse Rate 70 Pulse Rate [ 95 H Bilateral Throughout] Respiratory Rate Respiratory 17 Rate [Bilateral Throughout] Blood Pressure O2 Sat by Pulse 100 Oximetry Constitutional: no acute distress, alert Eyes: non-icteric ENT: oropharynx moist Neck: supple, no lymphadenopathy, no JVD Effort: mildly labored Ascultation: Bilateral: diminished breath sounds, rhonchi Percussion: Bilateral: not dull Cardiovascular: regular rate and rhythm Gastrointestinal: normoactive bowel sounds, soft, non-tender, non-distended Integumentary: normal Extremities: no cyanosis, pulses normal, no ischemia or petechiae, edema Neurologic: non-focal exam (grossly), pupils equal and round, CN II-XII normal, motor strength normal and Psychiatric: mood appropriate, affect normal CBC and BMP: 03/02/22 04:49 03/05/22 05:45 ABG, PT/INR, D-dimer: ABG ABG pH 7.381 pH Units (7.350-7.450) 02/28/22 05:00 ABG pCO2 41.2 mm Hg 02/28/22 05:00 ABG pO2 91.3 mm Hg (80.0-90.0) H 02/28/22 05:00 ABG O2 Saturation 97.0 % (95.0-99.0) 02/28/22 05:00 PT/INR, D-dimer PT 19.3 Sec. (12.2-14.9) H 03/05/22 05:45 INR 1.44 (0.87-1.13) H 03/05/22 05:45 Abnormal lab findings: Abnormal Labs 02/28/22 02/28/22 02/28/22 03:41 03:41 03:54 WBC 12.2 H RBC Hgb 10.1 L Hct 32.2 L MCHC 31 L RDW 15.7 H Lymph % (Auto) 8.3 L Lymph # (Auto) 1.0 L [place] # (Auto) 0.9 H Seg Neutrophils % 83.2 H Seg Neuts % (Manual) Lymphocytes % (Manual) Seg Neutrophils # 10.1 H Seg Neutrophils # Man Lymphocytes # (Manual) PT 33.3 H INR 2.80 H ABG pO2 ABG Hemoglobin Sodium 135 L Potassium Chloride 91.4 L Carbon Dioxide 21 L BUN 61 H Creatinine 10.4 H Glucose 121 H POC Glucose Total Creatine Kinase 192 H CK-MB (CK-2) 7.2 H Troponin T 0.576 H* NT-Pro-B Natriuret Pep > 27854 H 02/28/22 02/28/22 03/01/22 05:00 14:23 05:08 WBC 12.4 H RBC Hgb 10.6 L Hct 32.7 L MCHC RDW 15.4 H Lymph % (Auto) Lymph # (Auto) [place] # (Auto) Seg Neutrophils % Seg Neuts % (Manual) 92.0 H Lymphocytes % (Manual) 1.0 L Seg Neutrophils # Seg Neutrophils # Man 11.4 H Lymphocytes # (Manual) 0.1 L PT INR ABG pO2 91.3 H ABG Hemoglobin 9.9 L Sodium Potassium Chloride Carbon Dioxide BUN Creatinine Glucose POC Glucose Total Creatine Kinase CK-MB (CK-2) Troponin T 0.764 H* D NT-Pro-B Natriuret Pep 03/01/22 03/01/22 03/02/22 05:08 05:08 04:49 WBC RBC Hgb Hct MCHC RDW Lymph % (Auto) Lymph # (Auto) [place] # (Auto) Seg Neutrophils % Seg Neuts % (Manual) Lymphocytes % (Manual) Seg Neutrophils # Seg Neutrophils # Man Lymphocytes # (Manual) PT 35.6 H 35.6 H INR 3.04 H 3.04 H ABG pO2 ABG Hemoglobin Sodium Potassium 5.1 H Chloride 92.1 L Carbon Dioxide BUN 44 H Creatinine 7.9 H Glucose 124 H POC Glucose Total Creatine Kinase CK-MB (CK-2) Troponin T NT-Pro-B Natriuret Pep 03/02/22 03/02/22 03/03/22 04:49 04:49 06:32 WBC 12.2 H RBC 3.63 L Hgb 10.0 L Hct 31.6 L MCHC RDW 15.7 H Lymph % (Auto) Lymph # (Auto) [place] # (Auto) Seg Neutrophils % Seg Neuts % (Manual) Lymphocytes % (Manual) Seg Neutrophils # Seg Neutrophils # Man Lymphocytes # (Manual) PT 24.3 H INR 1.91 H ABG pO2 ABG Hemoglobin Sodium 131 L Potassium 5.1 H Chloride 88.8 L Carbon Dioxide BUN 74 H Creatinine 10.2 H Glucose 136 H POC Glucose Total Creatine Kinase CK-MB (CK-2) Troponin T 1.200 H* D NT-Pro-B Natriuret Pep 03/03/22 03/03/22 03/03/22 06:32 11:57 16:12 WBC RBC Hgb Hct MCHC RDW Lymph % (Auto) Lymph # (Auto) [place] # (Auto) Seg Neutrophils % Seg Neuts % (Manual) Lymphocytes % (Manual) Seg Neutrophils # Seg Neutrophils # Man Lymphocytes # (Manual) PT INR ABG pO2 ABG Hemoglobin Sodium 136 L Potassium Chloride 90.3 L Carbon Dioxide BUN 45 H Creatinine 7.3 H Glucose POC Glucose 120 H 156 H Total Creatine Kinase CK-MB (CK-2) Troponin T 1.860 H* D NT-Pro-B Natriuret Pep 03/03/22 03/04/22 03/04/22 20:31 06:53 06:53 WBC RBC Hgb Hct MCHC RDW Lymph % (Auto) Lymph # (Auto) [place] # (Auto) Seg Neutrophils % Seg Neuts % (Manual) Lymphocytes % (Manual) Seg Neutrophils # Seg Neutrophils # Man Lymphocytes # (Manual) PT 18.9 H INR 1.41 H ABG pO2 ABG Hemoglobin Sodium 136 L Potassium Chloride 92.3 L Carbon Dioxide 20 L D BUN 63 H Creatinine 9.5 H Glucose 147 H POC Glucose 141 H Total Creatine Kinase CK-MB (CK-2) Troponin T NT-Pro-B Natriuret Pep 03/04/22 03/04/22 03/04/22 08:08 11:27 16:23 WBC RBC Hgb Hct MCHC RDW Lymph % (Auto) Lymph # (Auto) [place] # (Auto) Seg Neutrophils % Seg Neuts % (Manual) Lymphocytes % (Manual) Seg Neutrophils # Seg Neutrophils # Man Lymphocytes # (Manual) PT INR ABG pO2 ABG Hemoglobin Sodium Potassium Chloride Carbon Dioxide BUN Creatinine Glucose POC Glucose 117 H 120 H 140 H Total Creatine Kinase CK-MB (CK-2) Troponin T NT-Pro-B Natriuret Pep 03/04/22 03/05/22 03/05/22 21:18 05:45 05:45 WBC RBC Hgb Hct MCHC RDW Lymph % (Auto) Lymph # (Auto) [place] # (Auto) Seg Neutrophils % Seg Neuts % (Manual) Lymphocytes % (Manual) Seg Neutrophils # Seg Neutrophils # Man Lymphocytes # (Manual) PT 19.3 H INR 1.44 H ABG pO2 ABG Hemoglobin Sodium 134 L Potassium 5.2 H Chloride 91.0 L Carbon Dioxide 21 L BUN 76 H Creatinine 11.1 H Glucose 107 H POC Glucose 140 H Total Creatine Kinase CK-MB (CK-2) Troponin T NT-Pro-B Natriuret Pep Allied health notes reviewed: nursing
--- NOTE | 2022-03-05 13:42 | Electrocardiograph Report ---
[facility] Test Date: 2022-03-04 Test Time: 07:31:45 Pat Name: DAISY PABON Department: Room: A477 1 Gender: M Application Specialist: ELIZ : 1940 Requested By: RENEE ESCOBAR Order Number: [id number] Reading MD: Qiana Joyce Measurements Intervals [place] Rate: 74 P: 74 AL: 160 QRS: -52 QRSD: 120 T: 137 QT: 421 QTc: 465 Interpretive Statements Sinus rhythm Atrial premature complex Probable left atrial enlargement LVH with IVCD, LAD and secondary repol abnrm Compared to ECG 02/28/2022 04:28:52 Atrial premature complex(es) now present PVCs no longer evident Electronically Signed On 03-05-2022 13:42:01 EDT by Qiana Joyce
--- NOTE | 2022-03-05 15:12 | Progress Note ---
Assessment and Plan Patient is [id number] male, who follows with Dr. West, with end-stage renal disease on HD MWF, hypertension, hyperlipidemia, and CAD with known lesion in proximal LAD and PCI of left circumflex with occasional shortness of breath, paroxysmal A. fib (on Coumadin), home o2 (4-5 L prn) who presents to [facility] today with complaints of nonproductive cough that began 1 week ago and he was progressively worsening over the past few days A. fib with VVR Acute on chronic HFrEF (25-30) Acute COPD Exacerbation vs acute respiratory failure CAD (s/p PCI - on plavix) Paroxysmal Afib (on coumadin) ESRD on HD H/o chronically elevated troponin H/o pericardial effusion Outpatient medications: Albuterol 2.5 mg, inhaled as needed, Plavix 75 mg p.o. daily, ferrous fumarate 325 mg p.o. daily, Fosrenol 1000 mg oral tab twice daily, metoprolol 12.5 mg p.o. twice daily, nifedipine 90 mg p.o. as needed, rosuvastatin 10 mg p.o. daily, Spiriva respimat 2.5 mcg/inh 2 puffs inhaled daily, spironolactone 25 mg p.o. twice daily, warfarin 5 mg PO daily, vitamin D3 1000 units p.o. daily, Symbicort 80 mcgs-4.5 mcgs/inh, 2 puffs inhaled twice daily Echocardiogram 02/28/2022: EF 25 to 30%. Left ventricle is mildly dilated. Severe global hypokinesis of left ventricle particularly apical area. Right ventricle systolic function is mildly reduced. Left atrium is borderline dilated. Moderate tricuspid regurgitation Echo 03/14/2021: Left ventricular systolic function is normal. Mild concentric left ventricular hypertrophy. LVEF is 50 to 55%. Mild to moderate circumferential pericardial effusion. No echocardiographic evidence of tampon j luis physiology. This represents significant improvement when compared to TTE 03/03/2021. Large left pleural effusion. Lexiscan Stress Test02/15/2022 impressions: 1. Pharmacologic stress nuclear study is abnormal 2. There is a mildly reduced perfusion defect of small size in the mid anterior wall. There are moderately reduced perfusion defect of small to medium size and apical wall. There are moderately reduced perfusion defects of medium size in the lateral wall. The defect in the anterior segment is fixed. The defect in the apical segment is fixed. The defect in the lateral segment is partially reversible. 3. Abnormal SPECT perfusion imaging with ischemia in the lateral segment. 4. Stress EKG test results normal. 5. The calcified rest EF is at 30%. Calculated stress EF is at 31%.Recommendations: Due to findings clinical correlation is recommended Cardiac cath: 02/14/2021- rota of left circumflex stents: Resolute [place] 3.0 x 38 mm and unable to open OM1 Cath 02/13/2021: 1. Poba of the circumflex, but it unable to deliver stent secondary to calcification. The patient be transferred to [place] for rotational atherectomy. OM1 patent. OM 200%. OM 3 patent. RCA mid ectatic vessels with in-stent restenosis 20%, PDA patent.2. Left main distal 20%, LAD proximal 60 to 70%, stent patent, diagonal 1 ostial 90%. Rest of LAD patent 3. Normal LV. The patient will be loaded with Plavix. Discussed this function with the patient and the patient's family. Cardiac cath 08/29/2018: Left main large and patent LAD proximal mid stent patent diagonal 1 ostial 80% mid LAD patent. Circumflex is patent with mid stent widely patent. OM1 ostial 80 to 90% patent RCA, patent stents and normal LV function. Plan: Patient developed paroxysmal atrial fibrillation over weekend. Currently sinus rhythm Blood pressure is soft and will stop IV amiodarone. Continue anticoagulation. Continue p.o. amiodarone. We will intiate Lovenox today as his INR is subtherapeutic.once INR is therapeutic we will stop Lovenox Discussed with the patient, nurse, and hospitalist at bedside. Patient declined cardiac catheterization and reports that he would like to follow-up with Dr. West he is clinically stable without chest pain. Pharmacy to dose Coumadin discharge once INR is therapeutic. Patient seen in conjunction with Dr. Gutierrez who agrees with this plan of care - Patient Problems (1) Acute exacerbation of chronic obstructive pulmonary disease (COPD) Current Visit: Yes Status: Acute (2) NSTEMI (non-ST elevation myocardial infarction) Current Visit: Yes Status: Acute (3) Anticoagulated on Coumadin Current Visit: Yes Status: Chronic (4) CAD (coronary artery disease) Current Visit: Yes Status: Chronic Qualifiers: Coronary Disease-Associated Artery/Lesion type: unspecified vessel or lesion type [place] vs. transplanted heart: [place] heart Associated angina: angina presence unspecified (5) COPD (chronic obstructive pulmonary disease) Current Visit: Yes Status: Chronic (6) Acute exacerbation of CHF (congestive heart failure) Current Visit: No Status: Acute (7) Acute on chronic renal failure Current Visit: No Status: Acute Subjective Date of service: 03/05/22 Principal diagnosis: NSTEMI, acute on chronic HFrEF, volume overload Interval history: Patient resting in bed in no acute distress. Patient reports feeling well today denies any complaints of chest pain Patient sinus 60s-70s on monitor Objective Vital Signs Temp Pulse Pulse Resp Resp BP BP 03/05/22 10:47 70 03/05/22 09:33 03/05/22 08:00 95 H 17 03/05/22 07:50 97.6 F 67 14 102/64 03/05/22 06:29 77 03/05/22 04:00 97.7 F 72 18 95/63 03/05/22 00:00 98.8 F 88 18 101/72 03/04/22 23:44 80 03/04/22 22:40 03/04/22 22:00 77 03/04/22 21:17 98.0 F 73 18 92/55 03/04/22 20:37 74 18 03/04/22 16:25 97.8 F 18 84/52 Pulse Ox 03/05/22 10:47 03/05/22 09:33 100 03/05/22 08:00 03/05/22 07:50 100 03/05/22 06:29 03/05/22 04:00 99 03/05/22 00:00 03/04/22 23:44 03/04/22 22:40 98 03/04/22 22:00 97 03/04/22 21:17 97 03/04/22 20:37 03/04/22 16:25 - Physical Examination General: No Apparent Distress HEENT: Positive: Mucus Membranes Moist Neck: Positive: JVD/HJR Cardiac: Positive: Reg Rate and Rhythm Lungs: Positive: Normal Breath Sounds Neuro: Positive: Grossly Intact Abdomen: Positive: Soft, Active Bowel Sounds Skin: Positive: Other (puncture sites to LFA fistula ) Extremities: Present: normal. Absent: edema - Labs and Meds Coagulation 03/05/22 Range/Units 05:45 PT 19.3 H (12.2-14.9) Sec. INR 1.44 H (0.87-1.13) Comprehensive Metabolic Panel 03/05/22 Range/Units 05:45 Sodium 134 L (137-145) mmol/L Potassium 5.2 H (3.6-5.0) mmol/L Chloride 91.0 L (98-107) mmol/L Carbon Dioxide 21 L (22-30) mmol/L BUN 76 H (9-20) mg/dL Creatinine 11.1 H (0.8-1.3) mg/dL Glucose 107 H (75-100) mg/dL Calcium 8.9 (8.4-10.2) mg/dL - Imaging and Cardiology EKG: report reviewed Echo: report reviewed - Telemetry EKG Rhythm: Sinus Rhythm - EKG Sinus rhythms and dysrhythmias: sinus rhythm Ventricular dysrhythmias: ventricular premature com - Allied health notes Allied health notes reviewed: nursing
[2022-03-05] MEDS: EPOETIN ALFA-EPBX 10,000 UNIT/1 ML VIAL IV PRN (16:15)
[2022-03-05] MEDS: ENOXAPARIN 80 MG/0.8 ML INJ SUB-Q SCH (16:57)
[2022-03-05] MEDS ORDERED: WARFARIN 2 MG TAB PO NR (17:00)
[2022-03-05] MEDS: oxyCODONE /ACETAMINOPHEN 5-325MG TAB PO PRN (17:58)
--- NOTE | 2022-03-05 18:06 | Progress Note ---
Assessment and Plan Patient is 81 YO Male with COPD, CAD, S/P Stent Placement, HLD, ESRD on HD M/W/F, HTN, Hyperlipidemia, Paroxysmal Atrial Fibrillation currently on therapeutic anticoagulation with Coumadin, [place], Diastolic CHF, OA, COPD chronic hypoxia on home oxygen [facility] with complaint of persistent cough that has been ongoing for the past week with sensation of phlegm stuck at the back of his throat. He also reports worsening shortness of breath he is normally on 4 to 5 L of oxygen at home but last night had to go up to 8 L prior to presenting to the ED. in the ED he was given steroids and nebulizer treatment and placed on a full Venturi mask. His saturation is 100% . He denies any fever nausea vomiting or diarrhea he denies any chest pain or leg swelling. He denies any change in his medications or diet . He reports compliance with his dialysis. Patient has history of prostate cance in remission. Patient has history of smoking,. Denies akcohol or drug abuse. 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 Allergic to Atorvastatin, simvastatin, Cipro. Patient awake and on 2 litres O2. O2 saturation 99%. No acute respiratory distress. Denies chest pain, shortness of breath or cough. Patient afebrile. Has mild leukocytosis. Blood pressure 127/77.pulse 86, Respirations 18. Patients INR 1.44 03/05/22 Patient is on warfarin as per protocol. Chest xray obtained 02/28/22 reported No acute abnormality of the chest. Patient is on I/V solumedrol, S/C Lovenox, Brovana/Budesonide aerosol treatments, DUOneb aerosol treatments PRN, Protonix and warfarin. - Patient Problems (1) Acute exacerbation of chronic obstructive pulmonary disease (COPD) Current Visit: Yes Status: Acute Plan to address problem: O2 2 litres via nasal canula. On I/V solumedrol. Brovanna/Budesonide aerosol treatments. Albuterol/atrovent aerosol treatments q 6 hours prn for shortness of breath. Continue Protonix. Patients to days INR 1.44 (2) Acute on chronic heart failure with preserved ejection fraction (HFpEF) Current Visit: Yes Status: Acute Plan to address problem: Management as per cardiology. (3) NSTEMI (non-ST elevation myocardial infarction) Current Visit: Yes Status: Acute Plan to address problem: Management as per cardiology. (4) End-stage renal disease on hemodialysis Current Visit: Yes Status: Chronic Plan to address problem: Management as per nephrology. (5) Anemia Current Visit: No Status: Acute Qualifiers: Anemia type: unspecified type Qualified Code(s): D64.9 - Anemia, unspecified Plan to address problem: Management as per primary care Hematology and nephrology. (6) Atrial fibrillation with rapid ventricular response Current Visit: No Status: Acute Plan to address problem: Management as per cardiology. Patients to days INR 1.44. Patient is on coumadin protocol. Subjective Date of service: 03/05/22 Principal diagnosis: NSTEMI, acute on chronic HFrEF, volume overload Interval history: Patient is 81 YO Male with COPD, CAD, S/P Stent Placement, HLD, ESRD on HD M/W/F, HTN, Hyperlipidemia, Paroxysmal Atrial Fibrillation currently on therapeutic anticoagulation with Coumadin, TN, Diastolic CHF, OA, COPD chronic hypoxia on home oxygen [facility] presents to the ED with complaint of persistent cough that has been ongoing for the past week with sensation of phlegm stuck at the back of his throat. He also reports worsening shortness of breath he is normally on 4 to 5 L of oxygen at home but last night had to go up to 8 L prior to presenting to the ED. in the ED he was given steroids and nebulizer treatment and placed on a full Venturi mask. His saturation is 100% . He denies any fever nausea vomiting or diarrhea he denies any chest pain or leg swelling. He denies any change in his medications or diet . He reports compliance with his dialysis. Patient has history of prostate cance in remission. Patient has history of smoking,. Denies akcohol or drug abuse. 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 Allergic to Atorvastatin, simvastatin, Cipro. Patient awake and on 2 litres O2. O2 saturation 99%. No acute respiratory distress. Denies chest pain, shortness of breath or cough. Patient afebrile. Has mild leukocytosis. Blood pressure 127/77.pulse 86, Respirations 18. Patients INR 1.44 03/05/22 Patient is on warfarin as per protocol. Chest xray obtained 02/28/22 reported No acute abnormality of the chest. Patient is on I/V solumedrol, S/C Lovenox, Brovana/Budesonide aerosol treatments, DUOneb aerosol treatments PRN, Protonix and warfarin. Objective Vital Signs - 12hr 03/05/22 03/05/22 03/05/22 06:29 07:50 08:00 Temperature 97.6 F Pulse Rate 77 67 Pulse Rate [ 95 H Bilateral Throughout] Respiratory 14 Rate Respiratory 17 Rate [Bilateral Throughout] Blood Pressure 102/64 O2 Sat by Pulse 100 Oximetry 03/05/22 03/05/22 03/05/22 09:33 10:00 10:47 Temperature Pulse Rate 70 Pulse Rate [ Bilateral Throughout] Respiratory Rate Respiratory Rate [Bilateral Throughout] Blood Pressure O2 Sat by Pulse 100 97 Oximetry Constitutional: no acute distress, alert Eyes: non-icteric ENT: oropharynx moist Neck: supple, no lymphadenopathy, no JVD Effort: mildly labored Ascultation: Bilateral: diminished breath sounds, rhonchi Percussion: Bilateral: not dull Cardiovascular: regular rate and rhythm Gastrointestinal: normoactive bowel sounds, soft, non-tender, non-distended Integumentary: normal Extremities: no cyanosis, pulses normal, no ischemia or petechiae, edema Neurologic: non-focal exam (grossly), pupils equal and round, CN II-XII normal, motor strength normal and Psychiatric: mood appropriate, affect normal CBC and BMP: 03/02/22 04:49 03/05/22 05:45 ABG, PT/INR, D-dimer: ABG ABG pH 7.381 pH Units (7.350-7.450) 02/28/22 05:00 ABG pCO2 41.2 mm Hg 02/28/22 05:00 ABG pO2 91.3 mm Hg (80.0-90.0) H 02/28/22 05:00 ABG O2 Saturation 97.0 % (95.0-99.0) 02/28/22 05:00 PT/INR, D-dimer PT 19.3 Sec. (12.2-14.9) H 03/05/22 05:45 INR 1.44 (0.87-1.13) H 03/05/22 05:45 Abnormal lab findings: Abnormal Labs 02/28/22 02/28/22 02/28/22 03:41 03:41 03:54 WBC 12.2 H RBC Hgb 10.1 L Hct 32.2 L MCHC 31 L RDW 15.7 H Lymph % (Auto) 8.3 L Lymph # (Auto) 1.0 L [place] # (Auto) 0.9 H Seg Neutrophils % 83.2 H Seg Neuts % (Manual) Lymphocytes % (Manual) Seg Neutrophils # 10.1 H Seg Neutrophils # Man Lymphocytes # (Manual) PT 33.3 H INR 2.80 H ABG pO2 ABG Hemoglobin Sodium 135 L Potassium Chloride 91.4 L Carbon Dioxide 21 L BUN 61 H Creatinine 10.4 H Glucose 121 H POC Glucose Total Creatine Kinase 192 H CK-MB (CK-2) 7.2 H Troponin T 0.576 H* NT-Pro-B Natriuret Pep > 69889 H 02/28/22 02/28/22 03/01/22 05:00 14:23 05:08 WBC 12.4 H RBC Hgb 10.6 L Hct 32.7 L MCHC RDW 15.4 H Lymph % (Auto) Lymph # (Auto) [place] # (Auto) Seg Neutrophils % Seg Neuts % (Manual) 92.0 H Lymphocytes % (Manual) 1.0 L Seg Neutrophils # Seg Neutrophils # Man 11.4 H Lymphocytes # (Manual) 0.1 L PT INR ABG pO2 91.3 H ABG Hemoglobin 9.9 L Sodium Potassium Chloride Carbon Dioxide BUN Creatinine Glucose POC Glucose Total Creatine Kinase CK-MB (CK-2) Troponin T 0.764 H* D NT-Pro-B Natriuret Pep 03/01/22 03/01/22 03/02/22 05:08 05:08 04:49 WBC RBC Hgb Hct MCHC RDW Lymph % (Auto) Lymph # (Auto) [place] # (Auto) Seg Neutrophils % Seg Neuts % (Manual) Lymphocytes % (Manual) Seg Neutrophils # Seg Neutrophils # Man Lymphocytes # (Manual) PT 35.6 H 35.6 H INR 3.04 H 3.04 H ABG pO2 ABG Hemoglobin Sodium Potassium 5.1 H Chloride 92.1 L Carbon Dioxide BUN 44 H Creatinine 7.9 H Glucose 124 H POC Glucose Total Creatine Kinase CK-MB (CK-2) Troponin T NT-Pro-B Natriuret Pep 03/02/22 03/02/22 03/03/22 04:49 04:49 06:32 WBC 12.2 H RBC 3.63 L Hgb 10.0 L Hct 31.6 L MCHC RDW 15.7 H Lymph % (Auto) Lymph # (Auto) [place] # (Auto) Seg Neutrophils % Seg Neuts % (Manual) Lymphocytes % (Manual) Seg Neutrophils # Seg Neutrophils # Man Lymphocytes # (Manual) PT 24.3 H INR 1.91 H ABG pO2 ABG Hemoglobin Sodium 131 L Potassium 5.1 H Chloride 88.8 L Carbon Dioxide BUN 74 H Creatinine 10.2 H Glucose 136 H POC Glucose Total Creatine Kinase CK-MB (CK-2) Troponin T 1.200 H* D NT-Pro-B Natriuret Pep 03/03/22 03/03/22 03/03/22 06:32 11:57 16:12 WBC RBC Hgb Hct MCHC RDW Lymph % (Auto) Lymph # (Auto) [place] # (Auto) Seg Neutrophils % Seg Neuts % (Manual) Lymphocytes % (Manual) Seg Neutrophils # Seg Neutrophils # Man Lymphocytes # (Manual) PT INR ABG pO2 ABG Hemoglobin Sodium 136 L Potassium Chloride 90.3 L Carbon Dioxide BUN 45 H Creatinine 7.3 H Glucose POC Glucose 120 H 156 H Total Creatine Kinase CK-MB (CK-2) Troponin T 1.860 H* D NT-Pro-B Natriuret Pep 03/03/22 03/04/22 03/04/22 20:31 06:53 06:53 WBC RBC Hgb Hct MCHC RDW Lymph % (Auto) Lymph # (Auto) [place] # (Auto) Seg Neutrophils % Seg Neuts % (Manual) Lymphocytes % (Manual) Seg Neutrophils # Seg Neutrophils # Man Lymphocytes # (Manual) PT 18.9 H INR 1.41 H ABG pO2 ABG Hemoglobin Sodium 136 L Potassium Chloride 92.3 L Carbon Dioxide 20 L D BUN 63 H Creatinine 9.5 H Glucose 147 H POC Glucose 141 H Total Creatine Kinase CK-MB (CK-2) Troponin T NT-Pro-B Natriuret Pep 03/04/22 03/04/22 03/04/22 08:08 11:27 16:23 WBC RBC Hgb Hct MCHC RDW Lymph % (Auto) Lymph # (Auto) [place] # (Auto) Seg Neutrophils % Seg Neuts % (Manual) Lymphocytes % (Manual) Seg Neutrophils # Seg Neutrophils # Man Lymphocytes # (Manual) PT INR ABG pO2 ABG Hemoglobin Sodium Potassium Chloride Carbon Dioxide BUN Creatinine Glucose POC Glucose 117 H 120 H 140 H Total Creatine Kinase CK-MB (CK-2) Troponin T NT-Pro-B Natriuret Pep 03/04/22 03/05/22 03/05/22 21:18 05:45 05:45 WBC RBC Hgb Hct MCHC RDW Lymph % (Auto) Lymph # (Auto) [place] # (Auto) Seg Neutrophils % Seg Neuts % (Manual) Lymphocytes % (Manual) Seg Neutrophils # Seg Neutrophils # Man Lymphocytes # (Manual) PT 19.3 H INR 1.44 H ABG pO2 ABG Hemoglobin Sodium 134 L Potassium 5.2 H Chloride 91.0 L Carbon Dioxide 21 L BUN 76 H Creatinine 11.1 H Glucose 107 H POC Glucose 140 H Total Creatine Kinase CK-MB (CK-2) Troponin T NT-Pro-B Natriuret Pep 03/05/22 12:16 WBC RBC Hgb Hct MCHC RDW Lymph % (Auto) Lymph # (Auto) [place] # (Auto) Seg Neutrophils % Seg Neuts % (Manual) Lymphocytes % (Manual) Seg Neutrophils # Seg Neutrophils # Man Lymphocytes # (Manual) PT INR ABG pO2 ABG Hemoglobin Sodium Potassium Chloride Carbon Dioxide BUN Creatinine Glucose POC Glucose 217 H Total Creatine Kinase CK-MB (CK-2) Troponin T NT-Pro-B Natriuret Pep Allied health notes reviewed: nursing
[2022-03-06 06:10] LABS: INR 1.5 (0.87-1.13)
[2022-03-06 06:18] LABS: Calcium 8.9 mg/dL (8.4-10.2)
[2022-03-06] MEDS ORDERED: methylPREDNISolone Sod Succinate 125 MG/2 ML INJ IV SCH (07:56)
[2022-03-06] MEDS: LANTHANUM CARBONATE 500 MG TAB PO SCH (08:04)
[2022-03-06] MEDS: PANTOPRAZOLE 40 MG TAB PO SCH (08:04)
[2022-03-06] MEDS: ARFORMOTEROL 15 MCG/2 ML NEBU IH SCH (09:27)
[2022-03-06] MEDS: BUDESONIDE 0.5 MG/2 ML NEBU IH SCH (09:27)
[2022-03-06] MEDS: IPRATROPIUM/ALBUTEROL SULFATE 3 ML AMPUL.NEB IH SCH ×2 (09:28→14:03)
[2022-03-06] MEDS: TIOTROPIUM 18 MCG CAP INHALATION IH SCH (09:32)
--- NOTE | 2022-03-06 09:46 | Progress Note ---
Assessment and Plan This is a 81 year old man who presents with tachycardia, chest pain # ESRD: continue HD MWF or prn, last treatment yesterday. Due tomorrow. No indication for additional HD today per clinical/lab assessment - daily labs - renally dose meds - avoid nephrotoxins - renal diet - verbal consent obtained for HD # Anemia: last hemoglobin 10.0, continue ESAs with HD prn # HTN: UF as tolerated. BP soft # Secondary Hyperparathyroidism: continue home binders as needed, vitamin D analogs prn # NSTEMI: refused left heart cath, cardiology following # Respiratory Failure (Hypoxic): pulmonary following Subjective Date of service: 03/06/22 Principal diagnosis: NSTEMI, acute on chronic HFrEF, volume overload Interval history: Patient seen at bedside, denies any acute issues, states that he is feeling well. Denies chest pain, dyspnea, palpitations. Off amio gtt Had HD yesterday, denies any issues with no cramping, dizziness, chest pain du ring treatment Objective - Exam Narrative Exam: Constitutional: no acute distress Head: NC/AT Neck: supple Lungs: clear to auscultation CV: RRR, no M/R/G Abdomen: soft, non-tender, bowel sounds present Back: nontender Extremities: no edema, pulses WNL Skin: intact Neuro: no focal deficits, alert and oriented x4 - Vital Signs Vital signs: Vital Signs - 12hr 03/05/22 03/06/22 03/06/22 23:54 04:01 08:00 Temperature 98.3 F 97.7 F Pulse Rate 73 83 Pulse Rate [ 75 Bilateral Throughout] Respiratory 18 16 Rate Respiratory 19 Rate [Bilateral Throughout] Blood Pressure 93/58 94/59 O2 Sat by Pulse 98 98 Oximetry 03/06/22 03/06/22 08:21 09:31 Temperature 98.2 F Pulse Rate 82 Pulse Rate [ Bilateral Throughout] Respiratory 18 Rate Respiratory Rate [Bilateral Throughout] Blood Pressure 100/65 O2 Sat by Pulse 100 100 Oximetry - Lab 03/02/22 04:49 03/06/22 05:38 Most recent lab results ABG pH 7.381 pH Units (7.350-7.450) 02/28/22 05:00 ABG pCO2 41.2 mm Hg 02/28/22 05:00 ABG pO2 91.3 mm Hg (80.0-90.0) H 02/28/22 05:00 ABG HCO3 23.9 mmol/L (20.0-26.0) 02/28/22 05:00 ABG O2 Saturation 97.0 % (95.0-99.0) 02/28/22 05:00 Calcium 8.9 mg/dL (8.4-10.2) 03/06/22 05:38 Magnesium 2.00 mg/dL (1.7-2.3) 03/03/22 06:32 Medications & Allergies - Medications Allergies/Adverse Reactions: Allergies atorvastatin calcium [From Lipitor] Allergy (Mild, Verified 02/12/21 10:43) Unknown ACHES, RASH ciprofloxacin [From Cipro] Allergy (Mild, Verified 09/23/20 12:30) Bleeding NOSE BLEED ciprofloxacin HCl [From Cipro] Allergy (Mild, Verified 09/23/20 12:30) Bleeding NOSE BLEED simvastatin Allergy (Mild, Verified 09/23/20 12:30) Unknown ACHES Home Medications: Home Medications Medication Instructions Recorded Confirmed Last Taken Type ALBUTEROL NEB's [Proventil 0.083% 2.5 mg IH Q6HRT PRN #50 nebu 09/28/20 04/25/21 04/23/21 Rx NEBS] AtorvaSTATin 10 mg PO QHS #30 tablet 09/28/20 04/25/21 04/22/21 Rx Budesonide [Pulmicort Respules] 0.5 mg IH Q12HRT #30 nebu 09/28/20 04/25/21 04/22/21 Rx Epoetin Eric 10,000 Unit [Procrit] 10,000 unit IV LIZANDRO PRN vial 09/28/2002/28/21 12:39 Rx Ipratropium/Albuterol Sulfate 1 ampul IH TIDRT #50 ampul.neb 09/28/20 04/25/21 04/22/21 Rx [DUONEB *Not for PRN Use*] Sodium Bicarbonate 650 mg PO BID #60 09/28/20 04/25/21 04/23/21 Rx Tiotropium [Spiriva] 2 puff IH DAILY 30 Days #1 cap 09/28/20 04/25/21 04/23/21 Rx Clopidogrel [Plavix] 75 mg PO QDAY tablet 02/13/21 04/25/21 04/22/21 Rx Cholecalciferol Vit D3 [Vitamin D3 1,000 unit PO DAILY tablet 03/03/21 04/25/21 04/23/21 Rx 1,000 UNIT TAB] Lanthanum Carbonate [Fosrenol] 1,000 mg PO BIDAC tab.chew 03/03/21 04/25/21 04/23/21 Rx Pantoprazole [Protonix TAB] 40 mg PO QDAC tablet 03/03/21 04/25/21 04/23/21 Rx Metoprolol [Lopressor TAB] 50 mg PO BID #60 tablet 03/16/21 04/25/21 04/23/21 Rx NIFEdipine [Nifedipine] 50 mg PO BID 02/28/22 02/28/22 Unknown History Active Medications: Generic Name Dose Route Start Last Admin Trade Name Freq PRN Reason Stop Dose Admin Acetaminophen 650 mg 02/28/22 09:00 03/04/22 23:09 Acetaminophen 325 Mg Tab PO 650 mg Q4H PRN Administration Pain MILD(1-3)/Fever >100.5/STOLL Albuterol 2.5 mg 02/28/22 09:00 Albuterol 2.5 Mg/3 Ml Nebu IH Q4HRT PRN Shortness Of Breath Albuterol/Ipratropium 1 ampul 03/01/22 08:00 03/06/22 09:28 Ipratropium/Albuterol Sulfate 3 Ml Ampul.Neb IH Not Given TIDRT DARNELL Amiodarone HCl 200 mg 03/04/22 12:00 03/05/22 10:48 Amiodarone 200 Mg Tab PO 200 mg BID DARNELL Administration Arformoterol Tartrate 15 mcg 03/01/22 20:00 03/06/22 09:27 Arformoterol 15 Mcg/2 Ml Nebu IH 15 mcg Q12HRT DARNELL Administration Atorvastatin Calcium 10 mg 02/28/22 22:00 03/04/22 21:38 Atorvastatin 10 Mg Tab PO 10 mg QHS DARNELL Administration Budesonide 0.5 mg 02/28/22 20:00 03/06/22 09:27 Budesonide 0.5 Mg/2 Ml Nebu IH 0.5 mg Q12HRT DARNELL Administration Cholecalciferol 1,000 unit 02/28/22 10:00 03/05/22 10:48 Cholecalciferol (Vit D3) 1000 Unit (25 Mcg) Tab PO 1,000 unit DAILY DARNELL Administration Clopidogrel Bisulfate 75 mg 02/28/22 10:00 03/05/22 10:48 Clopidogrel 75 Mg Tab PO 75 mg QDAY DARNELL Administration Enoxaparin Sodium 80 mg 03/05/22 16:00 03/05/22 16:57 Enoxaparin 80 Mg/0.8 Ml Inj SUB-Q 80 mg QDAY DARNELL Administration Protocol Epoetin Eric-epbx 10,000 unit 02/28/22 09:00 03/05/22 16:15 Epoetin Eric-Epbx 10,000 Unit/1 Ml Vial IV 10,000 unit LIZANDRO PRN Administration HEMODIALYSIS Guaifenesin 10 ml 02/28/22 10:00 Guaifenesin Dm 200/20 Mg Oral Liqd 10 Ml PO QID PRN Cough Sodium Chloride 100 mls @ 999 mls/hr 03/02/22 10:00 Nacl 0.9% IV LIZANDRO PRN Hypotension Lanthanum Carbonate 1,000 mg 02/28/22 16:30 03/06/22 08:04 Lanthanum Carbonate 500 Mg Tab PO 1,000 mg BIDAC DARNELL Administration Methylprednisolone Sodium Succinate 30 mg 03/06/22 10:00 Methylprednisolone Sod Succinate 40 Mg/1 Ml Inj IV DAILY [facility] Metoprolol Tartrate 50 mg 02/28/22 10:00 03/05/22 10:47 Metoprolol Tartrate 50 Mg Tab PO 50 mg BID DARNELL Administration Naloxone HCl 0.1 mg 02/28/22 09:00 Naloxone 0.4 Mg/1 Ml Inj IV Q2MIN PRN Res Rate </= 8 or 02 SAT < 92% Ondansetron HCl 4 mg 02/28/22 09:00 Ondansetron 4 Mg/2 Ml Inj IV Q8H PRN Nausea And Vomiting Oxycodone/Acetaminophen 1 tab 02/28/22 09:00 03/05/22 17:58 Oxycodone /Acetaminophen 5-325mg Tab PO 1 tab Q6H PRN Administration Pain, Moderate (4-6) Pantoprazole Sodium 40 mg 03/01/22 07:30 03/06/22 08:04 Pantoprazole 40 Mg Tab PO 40 mg QDAC DARNELL Administration Sodium Bicarbonate 650 mg 02/28/22 10:00 03/05/22 11:02 Sodium Bicarbonate 650 Mg Tab PO 650 mg BID DARNELL Administration Sodium Chloride 10 ml 02/28/22 10:00 03/05/22 10:49 Sodium Chloride 0.9% 10 Ml Flush Syringe IV 10 ml BID DARNELL Administration Sodium Chloride 10 ml 02/28/22 09:00 Sodium Chloride 0.9% 10 Ml Flush Syringe IV PRN PRN LINE FLUSH Tiotropium [place] 2 puff 02/28/22 10:00 03/06/22 09:32 Tiotropium 18 Mcg Cap Inhalation IH Not Given DAILY DARNELL Warfarin Sodium 6 mg 03/06/22 17:00 Warfarin 2 Mg Tab PO 03/07/22 16:59 DAILY@1700 NR
[2022-03-06] MEDS ORDERED: methylPREDNISolone Sod Succinate 40 MG/1 ML INJ IV SCH (10:00)
[2022-03-06] MEDS: ENOXAPARIN 80 MG/0.8 ML INJ SUB-Q SCH (10:08)
[2022-03-06] MEDS: METOPROLOL TARTRATE 50 MG TAB PO SCH (10:09)
[2022-03-06] MEDS: AMIODARONE 200 MG TAB PO SCH (10:09)
[2022-03-06] MEDS: CLOPIDOGREL 75 MG TAB PO SCH (10:09)
[2022-03-06] MEDS: CHOLECALCIFEROL (VIT D3) 1000 UNIT (25 mcg) TAB PO SCH (10:09)
[2022-03-06] MEDS: SODIUM BICARBONATE 650 MG TAB PO SCH (10:10)
[2022-03-06 12:01] VITALS: BP 104/62
--- NOTE | 2022-03-06 12:17 | Progress Note ---
Assessment and Plan Patient is [id number] male, who follows with Dr. West, with end-stage renal disease on HD MWF, hypertension, hyperlipidemia, and CAD with known lesion in proximal LAD and PCI of left circumflex with occasional shortness of breath, paroxysmal A. fib (on Coumadin), home o2 (4-5 L prn) who presents to [facility] today with complaints of nonproductive cough that began 1 week ago and he was progressively worsening over the past few days A. fib with VVR Acute on chronic HFrEF (25-30) Acute COPD Exacerbation vs acute respiratory failure CAD (s/p PCI - on plavix) Paroxysmal Afib (on coumadin) ESRD on HD H/o chronically elevated troponin H/o pericardial effusion Outpatient medications: Albuterol 2.5 mg, inhaled as needed, Plavix 75 mg p.o. daily, ferrous fumarate 325 mg p.o. daily, Fosrenol 1000 mg oral tab twice daily, metoprolol 12.5 mg p.o. twice daily, nifedipine 90 mg p.o. as needed, rosuvastatin 10 mg p.o. daily, Spiriva respimat 2.5 mcg/inh 2 puffs inhaled daily, spironolactone 25 mg p.o. twice daily, warfarin 5 mg PO daily, vitamin D3 1000 units p.o. daily, Symbicort 80 mcgs-4.5 mcgs/inh, 2 puffs inhaled twice daily Echocardiogram 02/28/2022: EF 25 to 30%. Left ventricle is mildly dilated. Severe global hypokinesis of left ventricle particularly apical area. Right ventricle systolic function is mildly reduced. Left atrium is borderline dilated. Moderate tricuspid regurgitation Echo 03/14/2021: Left ventricular systolic function is normal. Mild concentric left ventricular hypertrophy. LVEF is 50 to 55%. Mild to moderate circumferential pericardial effusion. No echocardiographic evidence of tampon j luis physiology. This represents significant improvement when compared to TTE 03/03/2021. Large left pleural effusion. Lexiscan Stress Test02/15/2022 impressions: 1. Pharmacologic stress nuclear study is abnormal 2. There is a mildly reduced perfusion defect of small size in the mid anterior wall. There are moderately reduced perfusion defect of small to medium size and apical wall. There are moderately reduced perfusion defects of medium size in the lateral wall. The defect in the anterior segment is fixed. The defect in the apical segment is fixed. The defect in the lateral segment is partially reversible. 3. Abnormal SPECT perfusion imaging with ischemia in the lateral segment. 4. Stress EKG test results normal. 5. The calcified rest EF is at 30%. Calculated stress EF is at 31%.Recommendations: Due to findings clinical correlation is recommended Cardiac cath: 02/14/2021- rota of left circumflex stents: Resolute [place] 3.0 x 38 mm and unable to open OM1 Cath 02/13/2021: 1. Poba of the circumflex, but it unable to deliver stent secondary to calcification. The patient be transferred to [place] for rotational atherectomy. OM1 patent. OM 200%. OM 3 patent. RCA mid ectatic vessels with in-stent restenosis 20%, PDA patent.2. Left main distal 20%, LAD proximal 60 to 70%, stent patent, diagonal 1 ostial 90%. Rest of LAD patent 3. Normal LV. The patient will be loaded with Plavix. Discussed this function with the patient and the patient's family. Cardiac cath 08/29/2018: Left main large and patent LAD proximal mid stent patent diagonal 1 ostial 80% mid LAD patent. Circumflex is patent with mid stent widely patent. OM1 ostial 80 to 90% patent RCA, patent stents and normal LV function. Plan: Patient developed paroxysmal atrial fibrillation over weekend. Patient remains in sinus rhythm Continue anticoagulation. Continue p.o. amiodarone. Continue Lovenox as bridge thrapy to Coumadin as his INR is subtherapeutic Pharmacy to dose Coumadin Patient declined cardiac catheterization and reports that he would like to follow-up with Dr. West he is clinically stable without chest pain. Plan of care discussed with patient and stressed the importance of compliance with Coumadin and Lovenox bridge. Patient verbalized understanding and acknowledgment Cardiac status otherwise stable Patient has been scheduled for follow-up in with the Coumadin clinic on 03/12/2022 at 2:30pm at the [facility] Follow-up appointment 03/19/2022 at [facility] in [place] with Dr. West Patient seen in conjunction with Dr. Gutierrez who agrees with this plan of care - Patient Problems (1) Acute exacerbation of chronic obstructive pulmonary disease (COPD) Current Visit: Yes Status: Acute (2) NSTEMI (non-ST elevation myocardial infarction) Current Visit: Yes Status: Acute (3) Anticoagulated on Coumadin Current Visit: Yes Status: Chronic (4) CAD (coronary artery disease) Current Visit: Yes Status: Chronic Qualifiers: Coronary Disease-Associated Artery/Lesion type: unspecified vessel or lesion type [place] vs. transplanted heart: [place] heart Associated angina: angina presence unspecified (5) COPD (chronic obstructive pulmonary disease) Current Visit: Yes Status: Chronic (6) Acute exacerbation of CHF (congestive heart failure) Current Visit: No Status: Acute (7) Acute on chronic renal failure Current Visit: No Status: Acute Subjective Date of service: 03/06/22 Principal diagnosis: NSTEMI, acute on chronic HFrEF, volume overload Interval history: Patient resting in bed in no acute distress. Patient reports feeling well today denies any complaints of chest pain and expressed desire to go home Patient sinus 60s-70s on monitor Objective Vital Signs Temp Pulse Pulse Resp Resp BP Pulse Ox 03/06/22 12:00 98.2 F 74 18 104/62 99 03/06/22 10:00 97 03/06/22 09:31 100 03/06/22 08:21 98.2 F 82 18 100/65 100 03/06/22 08:00 82 75 19 03/06/22 04:01 97.7 F 83 16 94/59 98 03/05/22 23:54 98.3 F 73 18 93/58 98 03/05/22 20:54 99 H 17 03/05/22 20:53 100 03/05/22 20:23 98.2 F 83 18 114/67 98 03/05/22 16:15 97.7 F 86 18 127/77 03/05/22 16:10 80 97/49 03/05/22 16:00 80 98/51 03/05/22 15:45 79 91/62 03/05/22 15:30 68 105/48 03/05/22 15:15 76 97/53 03/05/22 15:00 76 100/57 03/05/22 14:45 84 97/59 03/05/22 14:30 89 106/60 03/05/22 14:15 81 87/56 03/05/22 14:00 75 98/50 03/05/22 13:45 72 94/50 03/05/22 13:30 70 101/45 03/05/22 13:10 71 106/54 03/05/22 13:00 97.5 F L 75 18 101/48 Pulse Ox 03/06/22 12:00 03/06/22 10:00 03/06/22 09:31 03/06/22 08:21 03/06/22 08:00 03/06/22 04:01 03/05/22 23:54 03/05/22 20:54 03/05/22 20:53 03/05/22 20:23 03/05/22 16:15 99 03/05/22 16:10 03/05/22 16:00 03/05/22 15:45 03/05/22 15:30 03/05/22 15:15 03/05/22 15:00 03/05/22 14:45 03/05/22 14:30 03/05/22 14:15 03/05/22 14:00 03/05/22 13:45 03/05/22 13:30 03/05/22 13:10 03/05/22 13:00 99 - Physical Examination General: No Apparent Distress HEENT: Positive: Mucus Membranes Moist Neck: Positive: trachea midline, JVD/HJR Cardiac: Positive: Reg Rate and Rhythm Lungs: Positive: Normal Breath Sounds Neuro: Positive: Grossly Intact Abdomen: Positive: Soft, Active Bowel Sounds Skin: Positive: Other (puncture sites to LFA fistula ) Extremities: Present: normal. Absent: edema - Labs and Meds Coagulation 03/06/22 Range/Units 05:38 PT 19.9 H (12.2-14.9) Sec. INR 1.50 H (0.87-1.13) Comprehensive Metabolic Panel 03/06/22 Range/Units 05:38 Sodium 141 D (137-145) mmol/L Potassium 4.3 (3.6-5.0) mmol/L Chloride 100.5 (98-107) mmol/L Carbon Dioxide 23 (22-30) mmol/L BUN 49 H (9-20) mg/dL Creatinine 7.6 H (0.8-1.3) mg/dL Glucose 172 H (75-100) mg/dL Calcium 8.9 (8.4-10.2) mg/dL - Imaging and Cardiology EKG: report reviewed Echo: report reviewed - Telemetry EKG Rhythm: Sinus Rhythm - EKG Sinus rhythms and dysrhythmias: sinus rhythm Ventricular dysrhythmias: ventricular premature com - Allied health notes Allied health notes reviewed: nursing
--- NOTE | 2022-03-06 12:27 | Progress Note ---
Assessment and Plan Acute on chronic hypoxemic respiratory failure Acute exacerbation of COPD End-stage renal disease, on dialysis Coronary artery disease NSTEMI Secondary coagulopathy Atrial fibrillation with a controlled rate Heart failure with preserved ejection fraction Osteoarthritis - supplemental oxygen to keep O2 sats > 90% - continue Bronchodilators (JESÚS & LABA) with pulm hygiene per RT - continue systemic steroids with slow taper - continue inhaled corticosteroids - continue to avoid nephrotoxins, renally dose all medications - mobility protocols to prevent pressure ulcers - PT/OT as tolerated - Wound care per RN/WCT - continue accuchecks with glycemic control per SSI for target blood glucose < 180 mg/dL - tobacco abstinence strongly counseled at the bedside - home oxygen evaluation at discharge - prn analgesia per pain score - GI & VTE prophylaxis - Flu & pneumovax per protocol - Pulmonary out patient follow up for PFTs and optimization of respiratory status - continue other care per attending / other consultants ... re-evaluate in am & prn Subjective Date of service: 03/06/22 Principal diagnosis: Ac. on Ch. hypoxemic resp failure; AE-COPD; CAD; ESRD; NSTEMI; HFpEF Interval history: Patient is seen today for: Acute on chronic hypoxemic respiratory failure; AE-C OPD; CAD; ESRD on dialysis; NSTEMI; A-Fib; HFpEF Seen and examined at bedside; 24hour events reviewed; nursing and respiratory care staff consulted; no adverse overnight events reported to me; resting peacefully in bed; Objective Vital Signs - 12hr 03/06/22 03/06/22 03/06/22 04:01 08:00 08:21 Temperature 97.7 F 98.2 F Pulse Rate 83 82 82 Pulse Rate [ 75 Bilateral Throughout] Respiratory 16 18 Rate Respiratory 19 Rate [Bilateral Throughout] Blood Pressure 94/59 100/65 O2 Sat by Pulse 98 100 Oximetry 03/06/22 03/06/22 03/06/22 09:31 10:00 12:00 Temperature 98.2 F Pulse Rate 74 Pulse Rate [ Bilateral Throughout] Respiratory 18 Rate Respiratory Rate [Bilateral Throughout] Blood Pressure 104/62 O2 Sat by Pulse 100 97 99 Oximetry Constitutional: no acute distress, alert Eyes: non-icteric ENT: oropharynx moist Neck: supple, no lymphadenopathy, no JVD Effort: mildly labored Ascultation: Bilateral: diminished breath sounds, rhonchi Percussion: Bilateral: not dull Cardiovascular: regular rate and rhythm Gastrointestinal: normoactive bowel sounds, soft, non-tender, non-distended Integumentary: normal Extremities: no cyanosis, pulses normal, no ischemia or petechiae, edema Neurologic: non-focal exam (grossly), pupils equal and round, CN II-XII normal, motor strength normal and Psychiatric: mood appropriate, affect normal CBC and BMP: 03/02/22 04:49 03/06/22 05:38 ABG, PT/INR, D-dimer: ABG ABG pH 7.381 pH Units (7.350-7.450) 02/28/22 05:00 ABG pCO2 41.2 mm Hg 02/28/22 05:00 ABG pO2 91.3 mm Hg (80.0-90.0) H 02/28/22 05:00 ABG O2 Saturation 97.0 % (95.0-99.0) 02/28/22 05:00 PT/INR, D-dimer PT 19.9 Sec. (12.2-14.9) H 03/06/22 05:38 INR 1.50 (0.87-1.13) H 03/06/22 05:38 Abnormal lab findings: Abnormal Labs 02/28/22 02/28/22 02/28/22 03:41 03:41 03:54 WBC 12.2 H RBC Hgb 10.1 L Hct 32.2 L MCHC 31 L RDW 15.7 H Lymph % (Auto) 8.3 L Lymph # (Auto) 1.0 L [place] # (Auto) 0.9 H Seg Neutrophils % 83.2 H Seg Neuts % (Manual) Lymphocytes % (Manual) Seg Neutrophils # 10.1 H Seg Neutrophils # Man Lymphocytes # (Manual) PT 33.3 H INR 2.80 H ABG pO2 ABG Hemoglobin Sodium 135 L Potassium Chloride 91.4 L Carbon Dioxide 21 L BUN 61 H Creatinine 10.4 H Glucose 121 H POC Glucose Total Creatine Kinase 192 H CK-MB (CK-2) 7.2 H Troponin T 0.576 H* NT-Pro-B Natriuret Pep > 34067 H 02/28/22 02/28/22 03/01/22 05:00 14:23 05:08 WBC 12.4 H RBC Hgb 10.6 L Hct 32.7 L MCHC RDW 15.4 H Lymph % (Auto) Lymph # (Auto) [place] # (Auto) Seg Neutrophils % Seg Neuts % (Manual) 92.0 H Lymphocytes % (Manual) 1.0 L Seg Neutrophils # Seg Neutrophils # Man 11.4 H Lymphocytes # (Manual) 0.1 L PT INR ABG pO2 91.3 H ABG Hemoglobin 9.9 L Sodium Potassium Chloride Carbon Dioxide BUN Creatinine Glucose POC Glucose Total Creatine Kinase CK-MB (CK-2) Troponin T 0.764 H* D NT-Pro-B Natriuret Pep 03/01/22 03/01/22 03/02/22 05:08 05:08 04:49 WBC RBC Hgb Hct MCHC RDW Lymph % (Auto) Lymph # (Auto) [place] # (Auto) Seg Neutrophils % Seg Neuts % (Manual) Lymphocytes % (Manual) Seg Neutrophils # Seg Neutrophils # Man Lymphocytes # (Manual) PT 35.6 H 35.6 H INR 3.04 H 3.04 H ABG pO2 ABG Hemoglobin Sodium Potassium 5.1 H Chloride 92.1 L Carbon Dioxide BUN 44 H Creatinine 7.9 H Glucose 124 H POC Glucose Total Creatine Kinase CK-MB (CK-2) Troponin T NT-Pro-B Natriuret Pep 03/02/22 03/02/22 03/03/22 04:49 04:49 06:32 WBC 12.2 H RBC 3.63 L Hgb 10.0 L Hct 31.6 L MCHC RDW 15.7 H Lymph % (Auto) Lymph # (Auto) [place] # (Auto) Seg Neutrophils % Seg Neuts % (Manual) Lymphocytes % (Manual) Seg Neutrophils # Seg Neutrophils # Man Lymphocytes # (Manual) PT 24.3 H INR 1.91 H ABG pO2 ABG Hemoglobin Sodium 131 L Potassium 5.1 H Chloride 88.8 L Carbon Dioxide BUN 74 H Creatinine 10.2 H Glucose 136 H POC Glucose Total Creatine Kinase CK-MB (CK-2) Troponin T 1.200 H* D NT-Pro-B Natriuret Pep 03/03/22 03/03/22 03/03/22 06:32 11:57 16:12 WBC RBC Hgb Hct MCHC RDW Lymph % (Auto) Lymph # (Auto) [place] # (Auto) Seg Neutrophils % Seg Neuts % (Manual) Lymphocytes % (Manual) Seg Neutrophils # Seg Neutrophils # Man Lymphocytes # (Manual) PT INR ABG pO2 ABG Hemoglobin Sodium 136 L Potassium Chloride 90.3 L Carbon Dioxide BUN 45 H Creatinine 7.3 H Glucose POC Glucose 120 H 156 H Total Creatine Kinase CK-MB (CK-2) Troponin T 1.860 H* D NT-Pro-B Natriuret Pep 03/03/22 03/04/22 03/04/22 20:31 06:53 06:53 WBC RBC Hgb Hct MCHC RDW Lymph % (Auto) Lymph # (Auto) [place] # (Auto) Seg Neutrophils % Seg Neuts % (Manual) Lymphocytes % (Manual) Seg Neutrophils # Seg Neutrophils # Man Lymphocytes # (Manual) PT 18.9 H INR 1.41 H ABG pO2 ABG Hemoglobin Sodium 136 L Potassium Chloride 92.3 L Carbon Dioxide 20 L D BUN 63 H Creatinine 9.5 H Glucose 147 H POC Glucose 141 H Total Creatine Kinase CK-MB (CK-2) Troponin T NT-Pro-B Natriuret Pep 03/04/22 03/04/22 03/04/22 08:08 11:27 16:23 WBC RBC Hgb Hct MCHC RDW Lymph % (Auto) Lymph # (Auto) [place] # (Auto) Seg Neutrophils % Seg Neuts % (Manual) Lymphocytes % (Manual) Seg Neutrophils # Seg Neutrophils # Man Lymphocytes # (Manual) PT INR ABG pO2 ABG Hemoglobin Sodium Potassium Chloride Carbon Dioxide BUN Creatinine Glucose POC Glucose 117 H 120 H 140 H Total Creatine Kinase CK-MB (CK-2) Troponin T NT-Pro-B Natriuret Pep 03/04/22 03/05/22 03/05/22 21:18 05:45 05:45 WBC RBC Hgb Hct MCHC RDW Lymph % (Auto) Lymph # (Auto) [place] # (Auto) Seg Neutrophils % Seg Neuts % (Manual) Lymphocytes % (Manual) Seg Neutrophils # Seg Neutrophils # Man Lymphocytes # (Manual) PT 19.3 H INR 1.44 H ABG pO2 ABG Hemoglobin Sodium 134 L Potassium 5.2 H Chloride 91.0 L Carbon Dioxide 21 L BUN 76 H Creatinine 11.1 H Glucose 107 H POC Glucose 140 H Total Creatine Kinase CK-MB (CK-2) Troponin T NT-Pro-B Natriuret Pep 03/05/22 03/05/22 03/06/22 12:16 21:31 05:38 WBC RBC Hgb Hct MCHC RDW Lymph % (Auto) Lymph # (Auto) [place] # (Auto) Seg Neutrophils % Seg Neuts % (Manual) Lymphocytes % (Manual) Seg Neutrophils # Seg Neutrophils # Man Lymphocytes # (Manual) PT 19.9 H INR 1.50 H ABG pO2 ABG Hemoglobin Sodium Potassium Chloride Carbon Dioxide BUN Creatinine Glucose POC Glucose 217 H 123 H Total Creatine Kinase CK-MB (CK-2) Troponin T NT-Pro-B Natriuret Pep 03/06/22 05:38 WBC RBC Hgb Hct MCHC RDW Lymph % (Auto) Lymph # (Auto) [place] # (Auto) Seg Neutrophils % Seg Neuts % (Manual) Lymphocytes % (Manual) Seg Neutrophils # Seg Neutrophils # Man Lymphocytes # (Manual) PT INR ABG pO2 ABG Hemoglobin Sodium Potassium Chloride Carbon Dioxide BUN 49 H Creatinine 7.6 H Glucose 172 H POC Glucose Total Creatine Kinase CK-MB (CK-2) Troponin T NT-Pro-B Natriuret Pep Allied health notes reviewed: nursing
--- NOTE | 2022-03-06 14:43 | Discharge Summary ---
Providers - Providers Date of Admission: 02/28/22 08:02 Date of discharge: 03/06/22 Attending physician: NATE HORNER MD 02/28/22 07:34 Consult to Physician [CONS] Routine Comment: Consulting Provider: CHALINO MONGE Physician Instructions: Reason For Exam: CHF Consult to Physician [CONS] Routine Comment: Consulting Provider: DONA BARBER Physician Instructions: Reason For Exam: ESRD 02/28/22 08:10 Consult to Physician [CONS] Routine Comment: Consulting Provider: ELIZABETH BLACK Physician Instructions: Reason For Exam: hypoxic respiratory failure 03/01/22 09:01 Consult to Physician [CONS] Routine Comment: Consulting Provider: LOBITO BLANK Physician Instructions: Reason For Exam: fistula eval Primary care physician: [employer] 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 Procedures: None. Hospital course: Patient is 81 YO Male with COPD, CAD, S/P Stent Placement, HLD, ESRD on HD M /W/F, HTN, Paroxysmal Atrial Fibrillation currently on therapeutic anticoagulation with Coumadin, [place], Diastolic CHF, OA, COPD chronic hypoxia [facility] today with complaint of persistent cough that has been ongoing for the past week with sensation of phlegm stuck at the back of his throat. He also reports worsening shortness of breath he is normally on 4 to 5 L of oxygen at home but last night had to go up to 8 L prior to presenting to the ED. in the ED he was given steroids and nebulizer treatment and placed on a full Venturi mask. His saturation is 100% at the time. Patient was initiated on steroids, azithromycin, DuoNebs, and budesonide for acute on chronic COPD exacerbation. Patient has since been weaned down to 3 L nasal cannula (uses 5-6 L at night at home). Initially the patient was supratherapeutic with his INR, and the decision was made to hold warfarin due to possible cardiac intervention for his type II NSTEMI. Patient declined left heart cath at this time, and he prefers it to be performed by his primary industrial education instructor in outpatient setting. The patient was reinitiated on warfarin, and his INR is currently 1.5 (goal 23). Patient's AV fistula was malfunctioning without being able to provide full clearance for adequate volume removal. The patient preferred to follow-up with vascular surgery in the outpatient setting. Patient is medically clear for discharge, and he expresses understanding. Disposition: 01 HOME / SELF CARE / HOMELESS Final Discharge Diagnosis (Prints w/discharge instructions): Acute on chronic COPD exacerbation, acute on chronic hypoxic respiratory failure, chronic diastolic heart failure, hypertension, CAD status post stenting, atrial fi brillation, secondary coagulopathy, ESRD on hemodialysis, AV fistula malformation, type II NSTEMI, and SIRS Time spent for discharge: 45 min Core Measure Documentation - Palliative Care Palliative Care/ Comfort Measures: Not Applicable - Core Measures Any of the following diagnoses?: history only Exam - Constitutional Vitals: Temp Pulse Resp BP Pulse Ox 98.2 F 74 18 104/62 99 03/06/22 12:00 03/06/22 12:00 03/06/22 12:00 03/06/22 12:00 03/06/22 12:00 General appearance: Present: no acute distress, well-nourished - EENT Eyes: Present: PERRL, EOM intact ENT: hearing intact, clear oral mucosa, dentition normal - Neck Neck: Present: supple, normal ROM - Respiratory Respiratory effort: normal Respiratory: bilateral: diminished (On 3 L nasal cannula) - Cardiovascular Rhythm: irregularly irregular Heart Sounds: Present: S1 & S2 - Extremities Extremities: no ischemia, pulses intact, pulses symmetrical, No edema, normal temperature, normal color Peripheral Pulses: within normal limits - Abdominal General gastrointestinal: Present: soft, non-tender, non-distended, normal bowel sounds Male genitourinary: Present: deferred - Rectal Rectal Exam: deferred - Integumentary Integumentary: Present: clear, warm, dry - Musculoskeletal Musculoskeletal: strength equal bilaterally - Psychiatric Psychiatric: appropriate mood/affect, intact judgment & insight, memory intact, cooperative - Neurologic Neurologic: CNII-XII intact, moves all extremities - Allied Health Allied health notes reviewed: nursing Plan Activity: advance as tolerated Diet: low salt Additional Instructions: Patient is 81 YO Male with COPD, CAD, S/P Stent Placement, HLD, ESRD on HD M/W/F, HTN, Paroxysmal Atrial Fibrillation currently on therapeutic anticoagulation with Coumadin, [place], Diastolic CHF, OA, COPD chronic hypoxia [facility] presents to [facility] ED today with complaint of persistent cough that has been ongoing for the past week with sensation of phlegm stuck at the back of his throat. He also reports worsening shortness of breath he is normally on 4 to 5 L of oxygen at home but last night had to go up to 8 L prior to presenting to the ED. in the ED he was given steroids and nebulizer treatment and placed on a full Venturi mask. His saturation is 100% at the time. Patient was initiated on steroids, azithromycin, DuoNebs, and budesonide for acute on chronic COPD exacerbation. Patient has since been weaned down to 3 L nasal cannula (uses 5-6 L at night at home). Initially the patient was supratherapeutic with his INR, and the decision was made to hold warfarin due to possible cardiac intervention for his type II NSTEMI. Patient declined left heart cath at this time, and he prefers it to be performed by his primary industrial education instructor in outpatient setting. The patient was reinitiated on warfarin, and his INR is currently 1.5 (goal 23). Patient's AV fistula was malfunctioning without being able to provide full clearance for adequate volume removal. The patient preferred to follow-up with vascular surgery in the outpatient setting. Patient is medically clear for discharge, and he expresses understanding. Care Plan Goals: Patient is medically cleared for discharge. Assessment: Patient is 81 YO Male with COPD, CAD, S/P Stent Placement, HLD, ESRD on HD M//, HTN, Paroxysmal Atrial Fibrillation currently on therapeutic anticoagulation with Coumadin, [place], Diastolic CHF, OA, COPD chronic hypoxia on home oxygen [facility] presents to the ED today with complaint of persistent cough that has been ongoing for the past week with sensation of phlegm stuck at the back of his throat. He also reports worsening shortness of breath he is normally on 4 to 5 L of oxygen at home but last night had to go up to 8 L prior to presenting to the ED. in the ED he was given steroids and nebulizer treatment and placed on a full Venturi mask. His saturation is 100% at the time. Patient was initiated on steroids, azithromycin, DuoNebs, and budesonide for acute on chronic COPD exacerbation. Patient has since been weaned down to 3 L nasal cannula (uses 5-6 L at night at home). Initially the patient was supratherapeutic with his INR, and the decision was made to hold warfarin due to possible cardiac intervention for his type II NSTEMI. Patient declined left heart cath at this time, and he prefers it to be performed by his primary industrial education instructor in outpatient setting. The patient was reinitiated on warfarin, and his INR is currently 1.5 (goal 23). Patient's AV fistula was malfunctioning without being able to provide full clearance for adequate volume removal. The patient preferred to follow-up with vascular surgery in the outpatient setting. Patient is medically clear for discharge, and he expresses understanding. Follow up with: PRIMARY CARE, [Primary Care Provider] - 3-5 Days JONELLE MAO MD [Staff Physician] - 03/12/22 2:30 pm KEZIA CARMONA MD [Staff Physician] - 03/19/22 3:30 pm Forms: Warfarin Discharge Instruction Prescriptions: Amiodarone [Cordarone 200 MG TAB] 200 mg PO BID #60 tablet Warfarin [Coumadin] 6 mg PO DAILY@1700 #30 tablet Enoxaparin 80 mg SUB-Q QDAY #1 syringe Metoprolol [Lopressor TAB] 50 mg PO BID #60 tablet
[2022-03-06] MEDS ORDERED: WARFARIN 2 MG TAB PO NR (17:00)
== END 2022-03-06 16:40 | disposition home or self-care (01) | DRG 280 ==
LOC: ED 03:20 → 4A 08:02
PROVIDERS: ADMIT Internal Medicine; ATTEND Student in an Organized Health Care Education/Training Program
PROC: 4A033R1 Measurement of Arterial Saturation, Peripheral, Percutaneous Approach (ICD-10-PCS; principal; 2022-02-28)
PROC: 5A1D70Z Performance of Urinary Filtration, Intermittent, Less than 6 Hours Per Day (ICD-10-PCS; 2022-02-28)
PROC: 5A1D70Z Performance of Urinary Filtration, Intermittent, Less than 6 Hours Per Day (ICD-10-PCS; 2022-03-02)
PROC: 5A1D70Z Performance of Urinary Filtration, Intermittent, Less than 6 Hours Per Day (ICD-10-PCS; 2022-03-05)
DX: I13.2 Hypertensive heart and chronic kidney disease with heart failure and with stage 5 chronic kidney disease, or end stage renal disease (principal); I21.A1 Myocardial infarction type 2; N18.6 End stage renal disease; J96.21 Acute and chronic respiratory failure with hypoxia; I50.33 Acute on chronic diastolic (congestive) heart failure; R65.11 Systemic inflammatory response syndrome (SIRS) of non-infectious origin with acute organ dysfunction; J44.1 Chronic obstructive pulmonary disease with (acute) exacerbation; D68.8 Other specified coagulation defects; T82.590A Other mechanical complication of surgically created arteriovenous fistula, initial encounter; N25.81 Secondary hyperparathyroidism of renal origin; I48.0 Paroxysmal atrial fibrillation; I25.10 Atherosclerotic heart disease of native coronary artery without angina pectoris; E78.5 Hyperlipidemia, unspecified; M19.90 Unspecified osteoarthritis, unspecified site; Z88.8 Allergy status to other drugs, medicaments and biological substances; Z79.01 Long term (current) use of anticoagulants; K21.9 Gastro-esophageal reflux disease without esophagitis; Y83.8 Other surgical procedures as the cause of abnormal reaction of the patient, or of later complication, without mention of misadventure at the time of the procedure; Y92.89 Other specified places as the place of occurrence of the external cause; D63.1 Anemia in chronic kidney disease
CPT/HCPCS: 36415; 71045; 80048; 80053; 80061; 80074; 82550; 82553; 82803; 82962; 83690; 83735; 83880; 84484; 85007; 85025; 85027; 85610; 93005; 93306; 94640; 94644; 94760; 96374; 99285; G0378; J3490; J7060; C8929; J0282; J0456; J0885; J1650; J2920; J2930; J7040

== ENCOUNTER 2022-03-15 15:22 | Emergency (ER) | payer MEDICARE, OTHER ==
[2022-03-15 17:03] VITALS: BP 99/45
== END 2022-03-16 13:03 | disposition left against medical advice (07) ==
LOC: ED 15:22
DX: I95.9 Hypotension, unspecified (principal); Z53.21 Procedure and treatment not carried out due to patient leaving prior to being seen by health care provider